=== PATIENT | female | born 1980 | race Caucasian/White ===

== ENCOUNTER 2017-07-09 17:19 | Emergency (ER) | payer SELFPAY ==
[~2017-07-09] VITALS: Ht 160 cm; Wt 50.0 kg
[~2017-07-09 17:19] MED LIST: BACT800T5 PO; CLEO300C2 PO; METH5SOL3 PO
[2017-07-09 17:26] VITALS: BP 149/92; PULSE 92; RESP 25; TEMP 99.2
== END 2017-07-09 17:50 | disposition left against medical advice (07) ==
LOC: NEPC 17:19
DX: Z76.89 Persons encountering health services in other specified circumstances (principal)
CPT/HCPCS: 99281

== ENCOUNTER 2017-07-12 22:49 | Inpatient (IN) | payer MEDICAID ==
[~2017-07-12] VITALS: Ht 160 cm; Wt 56.8 kg
[2017-07-12 23:00] VITALS: BP 119/59; PULSE 141; RESP 20; TEMP 102.8; O2SAT 98
[2017-07-12] MEDS ORDERED: PIPERACIL-TAZO 4.5 GM PREMIX 100 ML IV STA (23:14)
[2017-07-12] MEDS ORDERED: VANCOMYCIN INJ 1,250 MG in SODIUM CHLOR 0.9% 250 ML INJ 250 ML IV STA (23:14)
[2017-07-12] MEDS ORDERED: SODIUM CHLOR 0.9% 1000 ML INJ 1,000 ML IV ONE ×2 (23:15)
[2017-07-12 23:16] VITALS: BP 125/57; PULSE 130; RESP 14; TEMP 102; O2SAT 98
[2017-07-12 23:33] LABS: AUTOMATED NEUTROPHIL # 9.1 TH/MM3 (1.8-7.7); BASOPHIL % 0.3 % (0.0-2.0); EOSINOPHIL % 0.1 % (0.0-4.0); HEMATOCRIT 28.6 % (35.0-46.0); HEMOGLOBIN 9.9 GM/DL (11.6-15.3); LYMPH % 4.6 % (9.0-44.0); LYMPHOCYTE # 0.5 TH/MM3 (1.0-4.8); MEAN CELL VOLUME 83.8 FL (80.0-100.0); MEAN CORPUSCULAR HEMOGLOBIN 29.1 PG (27.0-34.0); MEAN CORPUSCULAR HGB CONC 34.8 % (32.0-36.0); MEAN PLATELET VOLUME 8.4 FL (7.0-11.0); MONO % 3.6 % (0.0-8.0); MONOCYTE # 0.4 TH/MM3 (0-0.9); NEUT % 91.4 % (16.0-70.0); PLATELET COUNT 321 TH/MM3 (150-450); RED BLOOD COUNT 3.41 MIL/MM3 (4.00-5.30)
--- NOTE | 2017-07-12 23:48 | RADRPT ---
EXAM DATE/TIME: 07/12/2017 23:26 [place] COMPARISON: CHEST SINGLE AP, June 28, 2016, 2:23. INDICATIONS : High fever, sepsis. MEDICAL HISTORY : Endocarditis SURGICAL HISTORY : None. ENCOUNTER: Initial ACUITY: 4 - 6 days PAIN SCORE: 0/10 LOCATION: Bilateral chest FINDINGS: A single view of the chest demonstrates the lungs to be symmetrically aerated without evidence of mas s, infiltrate or effusion. The cardiomediastinal contours are unremarkable. Osseous structures are intact. CONCLUSION: No acute cardiopulmonary process to explain current clinical symptoms. Sascha Saunders MD on July 12, 2017 at 23:41 Board Certified Radiologist. This report was verified electronically.
[2017-07-12 23:51] LABS: LACTIC ACID SEPSIS PROTOCOL 2.8 mmol/L (0.4-2.0)
[2017-07-13] VITALS (12 sets, daily range): BP systolic 101–114; BP diastolic 55–73; PULSE 68–127; RESP 16–20; TEMP 98.8–100.4; O2SAT 93–99
[2017-07-13 00:01] LABS: ALBUMIN 2.7 GM/DL (3.4-5.0); ALKALINE PHOSPHATASE 105 U/L (45-117); ALT (GPT) 19 U/L (10-53); AST (GOT) 44 U/L (15-37); BICARBONATE 27.1 MEQ/L (21.0-32.0); BLOOD UREA NITROGEN 10 MG/DL (7-18); CALCIUM 8.5 MG/DL (8.5-10.1); CHLORIDE 97 MEQ/L (98-107); CREATININE 1.07 MG/DL (0.50-1.00); GLOMERULAR FILTRATION RATE 58 ML/MIN (>89); GLUCOSE,RANDOM 124 MG/DL (74-106); SODIUM (NA) 134 MEQ/L (136-145); TOTAL BILIRUBIN ADULT 0.8 MG/DL (0.2-1.0); TOTAL PROTEIN 8.4 GM/DL (6.4-8.2); TROPONIN I LESS THAN 0.02 NG/ML (0.02-0.05)
--- NOTE | 2017-07-13 00:53 | PD ---
HPI Chief Complaint: Chest Pain Time Seen by Provider: 23:14 Travel History International Travel<30 days: No Contact w/Intl Traveler<30days: No Traveled to known affect area: No History of Present Illness HPI 37-year-old female arrives to the ER with mother due to chest pain palpitations subjective fever. The patient has a history of IV drug abuse. She was recently diagnosed with endocarditis at a hospital in [place]. She signed out AMA 3 days prior. She reported to her mother, who is the main historian for today's visit, that she felt as if she were dying. She therefore agreed to come to the ER. Evidently imaging at [place] revealed septic pulmonary emboli. Location cardio pulmonary. Timing constant. PFSH Past Medical History Hx Anticoagulant Therapy: No Cardiovascular Problems: Yes (endocarditis) Chemotherapy: No Cerebrovascular Accident: No Diabetes: No Hepatitis: Yes (hep c+) Psychiatric: Yes (IVDA) Respiratory: No Immunizations Current: Yes Seizures: Yes Tetanus Vaccination: < 5 Years Influenza Vaccination: No ?: Not LMP: 7 YEARS AGO Past Surgical History Surgical History: No Previous Surgery Hysterectomy: No Social History Alcohol Use: Yes Tobacco Use: Yes Substance Use: Yes (heroine cocaine) Allergies-Medications (Allergen,Severity, Reaction): Coded Allergies: No Known Allergies (Unverified Allergy, Unknown, 07/12/17) Reported Meds & Prescriptions Reported Meds & Active Scripts Active No Active Prescriptions or Reported Medications Review of Systems Except as stated in HPI: all other systems reviewed are Neg Physical Exam Narrative GENERAL: 37-year-old female mild to moderate distress Vital Signs Date Time Temp Pulse Resp B/P (MAP) Pulse Ox O2 Delivery O2 Flow Rate FiO2 07/12/17 23:16 102.0 130 14 125/57 (79) 98 Room Air 07/12/17 23:00 102.8 141 20 119/59 (79) 98 SKIN: Warm and dry. Multiple areas of scarring consistent with IV drug abuse about the upper extremities. HEAD: Atraumatic. Normocephalic. EYES: Pupils equal and round. No scleral icterus. No injection or drainage. ENT: No nasal bleeding or discharge. Mucous membranes pink and moist. NECK: Trachea midline. No JVD. CARDIOVASCULAR: Tachycardia. Regular rhythm. RESPIRATORY: No accessory muscle use. Clear to auscultation. Breath sounds equal bilaterally. GASTROINTESTINAL: Abdomen soft, non-tender, nondistended. Hepatic and splenic margins not palpable. MUSCULOSKELETAL: Extremities without clubbing, cyanosis, or edema. No obvious deformities. NEUROLOGICAL: Awake and alert. No obvious cranial nerve deficits. Motor grossly within normal limits. Five out of 5 muscle strength in the arms and legs. Normal speech. PSYCHIATRIC: Appropriate mood and affect; insight and judgment normal. Data Data Last Documented VS Vital Signs Date Time Temp Pulse Resp B/P (MAP) Pulse Ox O2 Delivery O2 Flow Rate FiO2 07/12/17 23:16 102.0 130 14 125/57 (79) 98 Room Air Orders Orders Sepsis Workup Initiated (07/12/17 ) Complete Blood Count With Diff (07/12/17 23:14) Comprehensive Metabolic Panel (07/12/17 23:14) Lactic Acid Sepsis Protocol (07/12/17 23:14) Ckmb (Isoenzyme) Profile (07/12/17 23:14) Troponin I (07/12/17 23:14) Urinalysis - C+S If Indicated (07/12/17 23:14) Blood Culture (07/12/17 23:14) Chest, Single Ap (07/12/17 23:14) Ecg Monitoring (07/12/17 23:14) Iv Access Insert/Monitor (07/12/17 23:14) Oximetry (07/12/17 23:14) Oxygen Administration (07/12/17 23:14) Vancomycin Inj (Vancomycin Inj) (07/12/17 23:14) Piperacil-Tazo 4.5 Gm Premix (Zosyn 4.5 (07/12/17 23:14) Sodium Chlor 0.9% 1000 Ml Inj (Ns 1000 M (07/12/17 23:15) Sodium Chlor 0.9% 1000 Ml Inj (Ns 1000 M (07/12/17 23:15) Sodium Chlor 0.9% 1000 Ml Inj (Ns 1000 M (07/13/17 01:00) Acetaminophen (Tylenol) (07/13/17 01:00) Admit Order (Ed Use Only) (07/13/17 ) Pre Press Manager / Telemetry ADRIEN.Q8H (07/13/17 01:05) Vital Signs (Adult) Q4H (07/13/17 01:05) Diet Npo (07/13/17 Breakfast) Activity Bed Rest (07/13/17 01:05) Notify Dr: Other (07/13/17 01:05) Labs Laboratory Tests Test 07/12/17 23:21 White Blood Count 10.0 TH/MM3 Red Blood Count 3.41 MIL/MM3 Hemoglobin 9.9 GM/DL Hematocrit 28.6 % Mean Corpuscular Volume 83.8 FL Mean Corpuscular Hemoglobin 29.1 PG Mean Corpuscular Hemoglobin Concent 34.8 % Red Cell Distribution Width 16.0 % Platelet Count 321 TH/MM3 Mean Platelet Volume 8.4 FL Neutrophils (%) (Auto) 91.4 % Lymphocytes (%) (Auto) 4.6 % Monocytes (%) (Auto) 3.6 % Eosinophils (%) (Auto) 0.1 % Basophils (%) (Auto) 0.3 % Neutrophils # (Auto) 9.1 TH/MM3 Lymphocytes # (Auto) 0.5 TH/MM3 Monocytes # (Auto) 0.4 TH/MM3 Eosinophils # (Auto) 0.0 TH/MM3 Basophils # (Auto) 0.0 TH/MM3 CBC Comment DIFF FINAL Differential Comment Blood Urea Nitrogen 10 MG/DL Creatinine 1.07 MG/DL Random Glucose 124 MG/DL Total Protein 8.4 GM/DL Albumin 2.7 GM/DL Calcium Level 8.5 MG/DL Alkaline Phosphatase 105 U/L Aspartate Amino Transf (AST/SGOT) 44 U/L Alanine Aminotransferase (ALT/SGPT) 19 U/L Total Bilirubin 0.8 MG/DL Sodium Level 134 MEQ/L Potassium Level 4.4 MEQ/L Chloride Level 97 MEQ/L Carbon Dioxide Level 27.1 MEQ/L Anion Gap 10 MEQ/L Estimat Glomerular Filtration Rate 58 ML/MIN Lactic Acid Level 2.8 mmol/L Total Creatine Kinase 85 U/L Troponin I LESS THAN 0.02 NG/ML [facility] Medical Decision Making Medical Screen Exam Complete: Yes Emergency Medical Condition: Yes Medical Record Reviewed: Yes Differential Diagnosis Endocarditis, septic shock, septic pulmonary emboli, multiorgan dysfunction syndrome Narrative Course CBC & BMP Diagram 07/12/17 23:21 Total Protein 8.4 H, Albumin 2.7 L, Calcium Level 8.5, Alkaline Phosphatase 105 , Aspartate Amino Transf (AST/SGOT) 44 H, Alanine Aminotransferase (ALT/SGPT) 19 , Total Bilirubin 0.8 Lactic acid 2.8 Troponin is less than 0.02 EKG shows a sinus tachycardia at a rate of 129 Blood cultures 3 obtained. His presentation is consistent with endocarditis. Request for records from the [facility] has been submitted. Patient will be admitted for IV antibiotics for treatment of endocarditis. Critical Care Narrative Aggregate critical care time was 40 minutes. Time to perform other separately billable procedures was not included in the critical care time. My time did not include minutes spent treating any other patients simultaneously or on activities that did not directly contribute to the patient's treatment. The services I provided to this patient were to treat and/or prevent clinically significant deterioration that could result in: Septic shock, aneurysm, stroke, cardio pulmonary arrest I provided critical care services requiring my management, as noted below: Chart data review, documentation time, medication orders and management, vital sign assessments/reviewing monitor data, ordering and reviewing lab tests, ordering and interpreting/reviewing x-rays and diagnostic studies, care of the patient and discussion of the patient with the admitting physicians. Diagnosis Primary Impression: Endocarditis Qualified Codes: I38 - Endocarditis, valve unspecified Additional Impressions: IVDU (intravenous drug user) Anemia Qualified Codes: D64.9 - Anemia, unspecified Admitting Information Admitting Physician Requests: Admit Scripts No Active Prescriptions or Reported Meds Tung Hastings MD Jul 13, 2017 00:53
[2017-07-13] MEDS ORDERED: ACETAMINOPHEN 325 MG TAB PO ONE (01:00)
[2017-07-13] MEDS ORDERED: SODIUM CHLOR 0.9% 1000 ML INJ 1,000 ML IV ONE (01:00)
[2017-07-13] MEDS: SODIUM CHLOR 0.9% 1000 ML INJ 1,000 ML IV SCH ×3 (02:14→22:14)
[2017-07-13] MEDS ORDERED: ONDANSETRON HCL 4 MG/2 ML VIAL IVP PRN (02:15)
[2017-07-13] MEDS ORDERED: Vancomycin Consult Pharmacy 1 EA OTHER SCH (02:15)
[2017-07-13] MEDS ORDERED: SODIUM CHLORIDE 0.9% FLUSH 10 ML FLUSH IV FLUSH PRN (02:15)
[2017-07-13] MEDS ORDERED: ACETAMINOPHEN 325 MG TAB PO PRN (02:15)
[2017-07-13] MEDS ORDERED: NALOXONE HCL 0.4 MG/ML AMP IV PUSH PRN (02:15)
[2017-07-13 03:26] LABS: BILIRUBIN, URINE NEG (NEG); BLOOD, URINE NEG (NEG); GLUCOSE,URINE NEG (NEG); KETONE, URINE NEG (NEG); NITRITE,URINE NEG (NEG); SQUAMOUS EPITHELIAL CELL URINE 1 /hpf (0-5); URINE COLOR YELLOW (YELLW/STRAW); URINE LEUKOCYTE ESTERASE NEG (NEG)
--- NOTE | 2017-07-13 04:50 | HHI.HP ---
[facility] Service [facility] Primary Care Physician Unknown Admission Diagnosis Endocarditis; Severe Sepsis Diagnoses: Travel History International Travel<30 Days: No Contact w/Intl Traveler <30 Da: No Traveled to Known Affected Are: No History of Present Illness 37-year-old female with a past medical history significant for IV drug abuse presents to the emergency department for evaluation of chest pain, palpitations and fever. The patient will open her eyes to voice at the time of our interview however does not answer questions and quickly falls back asleep. Per ED documentation, the patient was recently diagnosed with endocarditis at a hospital in [place]. She signed out AMA 3 days ago and came to live with her mother. Per the patient's mother, the patient stated she felt as if she was dying. She was then agreeable to come to the emergency department for further evaluation. Per the mother's report, imaging at [place] revealed septic pulmonary emboli. Unable to obtain further review of systems as patient does not answer questions and her mother is not at bedside during our interview. Review of Systems ROS Limitations: Clinical Condition Unable to obtain secondary to clinical condition Past Family Social History Past Medical History IV drug abuse Past Surgical History Unable to obtain Reported Medications Unknown Allergies: Coded Allergies: No Known Allergies (Unverified Allergy, Unknown, 07/12/17) Family History Unknown Social History Unable to obtain Physical Exam Vital Signs Vital Signs Date Time Temp Pulse Resp B/P (MAP) Pulse Ox O2 Delivery O2 Flow Rate FiO2 07/13/17 03:00 100.0 112 16 102/55 (71) 94 Room Air 07/13/17 02:00 127 16 105/57 (73) 93 Room Air 07/13/17 01:00 124 16 102/57 (72) 94 Room Air 07/13/17 00:00 112 16 110/62 (78) 95 Room Air 07/12/17 23:16 102.0 130 14 125/57 (79) 98 Room Air 07/12/17 23:00 102.8 141 20 119/59 (79) 98 Physical Exam GENERAL: female lying in bed, drowsy, arouses to voice SKIN: No rashes, ecchymoses or lesions. Cool and dry. HEAD: Atraumatic. Normocephalic. No temporal or scalp tenderness. EYES: Pupils equal round and reactive. Extraocular motions intact. No scleral icterus. No injection or drainage. ENT: Nose without bleeding, purulent drainage or septal hematoma. Airway patent. NECK: Trachea midline. No JVD or lymphadenopathy. CARDIOVASCULAR: Regular rate and rhythm without murmurs, gallops, or rubs. RESPIRATORY: Clear to auscultation in the anterior giron. Breath sounds equal bilaterally. No wheezes, rales, or rhonchi. GASTROINTESTINAL: Abdomen soft, nondistended. No hepato-splenomegaly, or palpable masses. No guarding. MUSCULOSKELETAL: Extremities without clubbing, cyanosis, or edema. No joint tenderness, effusion, or edema noted. No calf tenderness. NEUROLOGICAL: Drowsy. Does not follow commands. Laboratory Laboratory Tests Test 07/12/17 23:21 07/13/17 02:10 07/13/17 03:10 White Blood Count 10.0 Red Blood Count 3.41 Hemoglobin 9.9 Hematocrit 28.6 Mean Corpuscular Volume 83.8 Mean Corpuscular Hemoglobin 29.1 Mean Corpuscular Hemoglobin Concent 34.8 Red Cell Distribution Width 16.0 Platelet Count 321 Mean Platelet Volume 8.4 Neutrophils (%) (Auto) 91.4 Lymphocytes (%) (Auto) 4.6 Monocytes (%) (Auto) 3.6 Eosinophils (%) (Auto) 0.1 Basophils (%) (Auto) 0.3 Neutrophils # (Auto) 9.1 Lymphocytes # (Auto) 0.5 Monocytes # (Auto) 0.4 Eosinophils # (Auto) 0.0 Basophils # (Auto) 0.0 CBC Comment DIFF FINAL Differential Comment Blood Urea Nitrogen 10 Creatinine 1.07 Random Glucose 124 Total Protein 8.4 Albumin 2.7 Calcium Level 8.5 Alkaline Phosphatase 105 Aspartate Amino Transf (AST/SGOT) 44 Alanine Aminotransferase (ALT/SGPT) 19 Total Bilirubin 0.8 Sodium Level 134 Potassium Level 4.4 Chloride Level 97 Carbon Dioxide Level 27.1 Anion Gap 10 Estimat Glomerular Filtration Rate 58 Lactic Acid Level 2.8 0.8 Total Creatine Kinase 85 Troponin I LESS THAN 0.02 Urine Color YELLOW Urine Turbidity CLEAR Urine pH 7.0 Urine Specific [facility] 1.017 Urine Protein NEG Urine Glucose (UA) NEG Urine Ketones NEG Urine Occult Blood NEG Urine Nitrite NEG Urine Bilirubin NEG Urine Urobilinogen LESS THAN 2.0 Urine Leukocyte Esterase NEG Urine RBC 1 Urine WBC 1 Urine Squamous Epithelial Cells 1 Microscopic Urinalysis Comment CATH-CULT NOT IND Date/Time Source Procedure Growth Status 07/12/17 23:50 Blood Peripheral Aerobic Blood Culture Pending Received 07/12/17 23:50 Blood Peripheral Anaerobic Blood Culture Pending Received Result Diagram: 07/12/17 2321 07/12/17 2321 Caprini VTE Risk Assessment Caprini VTE Risk Assessment: No/Low Risk (score <= 1) Caprini Risk Assessment Model Point Value = 1 Point Value = 2 Point Value = 3 Point Value = 5 Age 41-60 Minor surgery BMI > 25 kg/m2 Swollen legs Varicose veins or History of unexplained or recurrent spontaneous Oral contraceptives or hormone replacement Sepsis (< 1 month) Serious lung disease, including pneumonia (< 1 month) Abnormal pulmonary function Acute myocardial infarction Congestive heart failure (< 1 month) History of inflammatory bowel disease Medical patient at bed rest Age 61-74 Arthroscopic surgery Major open surgery (> 45 min) Laparoscopic surgery (> 45 min) Malignancy Confined to bed (> 72 hours) Immobilizing plaster cast Central venous access Age >= 75 History of VTE Family history of VTE Factor V Leiden Prothrombin [id number] Lupus anticoagulant Anticardiolipin antibodies Elevated serum homocysteine Heparin-induced thrombocytopenia Other congenital or acquired thrombophilia Stroke (< 1 month) Elective arthroplasty Hip, pelvis, or leg fracture Acute spinal cord injury (< 1 month) Prophylaxis Regimen Total Risk Factor Score Risk Level Prophylaxis Regimen 0-1 Low Early ambulation 2 Moderate Order ONE of the following: *Sequential Compression Device (SCD) *Heparin 5000 units SQ BID 3-4 Higher Order ONE of the following medications: *Heparin 5000 units SQ TID *Enoxaparin/Lovenox 40 mg SQ daily (WT < 150 kg, CrCl > 30 mL/min) *Enoxaparin/Lovenox 30 mg SQ daily (WT < 150 kg, CrCl > 10-29 mL/min) *Enoxaparin/Lovenox 30 mg SQ BID (WT < 150 kg, CrCl > 30 mL/min) AND/OR *Sequential Compression Device (SCD) 5 or more Highest Order ONE of the following medications: *Heparin 5000 units SQ TID (Preferred with Epidurals) *Enoxaparin/Lovenox 40 mg SQ daily (WT < 150 kg, CrCl > 30 mL/min) *Enoxaparin/Lovenox 30 mg SQ daily (WT < 150 kg, CrCl > 10-29 mL/min) *Enoxaparin/Lovenox 30 mg SQ BID (WT < 150 kg, CrCl > 30 mL/min) AND *Sequential Compression Device (SCD) Assessment and Plan Assessment and Plan Assessment/plan: 1. Endocarditis/sepsis Per report, patient recently treated for endocarditis and left AMA 3 days ago. She reportedly had septic pulmonary emboli. Records requested from [facility]. Patient tachycardic, febrile, elevated lactic acid Vancomycin/Zosyn Blood cultures pending Infectious disease consulted, appreciate recommendations Monitor for signs of shock 2. ESTEFANIA Creatinine 1.07 IV fluid hydration Monitor renal function 3. History of IV drug abuse Unable to obtain further information given patient's clinical condition FEN Heart healthy diet Electrolytes: Monitor and replete when necessary Physician Certification 2 Midnight Certification Type: Admission for Inpatient Services Order for Inpatient Services The services are ordered in accordance with Medicare regulations or non- Medicare payer requirements, as applicable. In the case of services not specified as inpatient-only, they are appropriately provided as inpatient services in accordance with the 2-midnight benchmark. Estimated LOS (days): 2 2 days is the estimated time the patient will need to remain in the hospital, assuming treatment plan goals are met and no additional complications. Post-Hospital Plan: Not yet determined Kaila Rabago MD Jul 13, 2017 04:50
[2017-07-13] MEDS ORDERED: PIPERACIL-TAZO 3.375 GM PREMIX 50 ML IV SCH ×2 (06:00→13:00)
[2017-07-13] MEDS: SODIUM CHLORIDE 0.9% FLUSH 10 ML FLUSH IV FLUSH SCH ×2 (09:00→21:00)
[2017-07-13] MEDS: VANCOMYCIN INJ 1,250 MG in SODIUM CHLOR 0.9% 250 ML INJ 250 ML IV SCH (11:32)
[2017-07-13] MEDS ORDERED: MORPHINE SULFATE 2 MG/ML INJ IV PUSH PRN (14:30)
--- NOTE | 2017-07-13 16:18 | HHI.PR ---
Subjective Remarks Follow-up for endocarditis and bacteremia On prior admission patient left AMA at hospital in [place]. Her mother is at the bedside during interview. Patient stated that she is willing to stay if we are willing to detox her. She has no complaints. At the moment her mother feels like patient needs to stay in the hospital for full treatment for endocarditis and stated that she has a high risk of relapsing. Patient stated that she would inject heroin all day and that prior when she try to get off of heroin she was on methadone 150 mg a day. Otherwise she has no other complaints. Objective Vitals Vital Signs Date Time Temp Pulse Resp B/P (MAP) Pulse Ox O2 Delivery O2 Flow Rate FiO2 07/13/17 12:35 07/13/17 12:20 99.3 100 20 113/60 (77) 97 07/13/17 08:00 102 16 114/73 (87) 95 Room Air 07/13/17 06:30 86 16 101/68 (79) 99 Room Air 07/13/17 04:30 99 16 103/65 (78) 93 Room Air 07/13/17 03:00 100.0 112 16 102/55 (71) 94 Room Air 07/13/17 02:00 127 16 105/57 (73) 93 Room Air 07/13/17 01:00 124 16 102/57 (72) 94 Room Air 07/13/17 00:00 112 16 110/62 (78) 95 Room Air 07/12/17 23:16 102.0 130 14 125/57 (79) 98 Room Air 07/12/17 23:00 102.8 141 20 119/59 (79) 98 I/O 07/12/17 07/12/17 07/12/17 07/13/17 07/13/17 07/13/17 07:00 15:00 23:00 07:00 15:00 23:00 Intake Total 3362.5 ml Balance 3362.5 ml Intake IV Total 3362.5 ml Result Diagram: 07/12/17232007/12/172320 Objective Remarks GENERAL: very thin female in NAD SKIN: Warm and dry. HEAD: Normocephalic. EYES: No scleral icterus. No injection or drainage. NECK: Supple, trachea midline. No JVD or lymphadenopathy. CARDIOVASCULAR: Regular rate and rhythm without murmurs, gallops, or rubs. RESPIRATORY: Breath sounds equal bilaterally. No accessory muscle use. GASTROINTESTINAL: Abdomen soft, non-tender, nondistended. MUSCULOSKELETAL: No cyanosis, or edema. BACK: Nontender without obvious deformity. No CVA tenderness. Medications and IVs Current Medications Vancomycin HCl 1250 mg/Sodium Chloride 262.5 ml @ 262.5 mls/ hr ONCE STAT IV Last administered on 07/13/17at 00:44; Start 07/12/17 at 23:14; Stop 07/13/17 at 00:13; Status DC Piperacillin Sod/ Tazobactam Sod 100 ml @ 200 mls/hr ONCE STAT IV Last administered on 07/12/17at 23:52; Start 07/12/17 at 23:14; Stop 07/12/17 at 23:43 ; Status DC Sodium Chloride 1,000 ml @ 999 mls/hr BOLUS ONCE IV Last administered on 07/12at 23:52; Start 07/12/17 at 23:15; Stop 07/13/17 at 00:15; Status DC Sodium Chloride 1,000 ml @ 999 mls/hr BOLUS ONCE IV Last administered on 07/12at 23:52; Start 07/12/17 at 23:15; Stop 07/13/17 at 00:15; Status DC Sodium Chloride 1,000 ml @ 999 mls/hr BOLUS ONCE IV Last administered on 07/13at 01:07; Start 07/13/17 at 01:00; Stop 07/13/17 at 02:00; Status DC Acetaminophen (Tylenol) 650 mg ONCE ONCE PO Last administered on 07/13/17at 01: 07; Start 07/13/17 at 01:00; Stop 07/13/17 at 01:01; Status DC Sodium Chloride 1,000 ml @ 100 mls/hr Q10H IV Last administered on 07/13/17at 13:49; Start 07/13/17 at 02:14 Sodium Chloride (NS Flush) 2 ml UNSCH PRN IV FLUSH FLUSH AFTER USING IV ACCESS ; Start 07/13/17 at 02:15 Sodium Chloride (NS Flush) 2 ml BID IV FLUSH ; Start 07/13/17 at 09:00 Acetaminophen (Tylenol) 650 mg Q4H PRN PO TEMP > 100.4; Start 07/13/17 at 02:15 Ondansetron HCl (Zofran Inj) 4 mg Q6H PRN IVP NAUSEA OR VOMITING; Start at 02:15 Naloxone HCl (Narcan Inj) 0.4 mg UNSCH PRN IV PUSH SEE LABEL COMMENTS; Start at 02:15 Pharmacy Profile Note 0 ml @ 0 mls/hr UNSCH OTHER ; Start 07/13/17 at 02:15 Piperacillin Sod/ Tazobactam Sod 50 ml @ 100 mls/hr Q6H IV ; Start 07/13/17 at 06:00; Stop 07/13/17 at 08:53; Status DC Vancomycin HCl 1250 mg/Sodium Chloride 262.5 ml @ 250 mls/hr Q12H IV Last administered on 07/13/17at 11:32; Start 07/13/17 at 12:00 Miscellaneous Information SPECIFIC LAB TO BE DRAWN:VANCOMYCIN TROUGH DATE TO... ONCE ONCE .XX ; Start 07/14/17 at 11:45; Stop 07/14/17 at 11:46 Piperacillin Sod/ Tazobactam Sod 50 ml @ 100 mls/hr Q6H IV Last administered on 07/13/17at 13:00; Start 07/13/17 at 13:00 Methadone HCl (Dolophine) 10 mg Q8H PO ; Start 07/13/17 at 16:00 Morphine Sulfate (Morphine Inj) 2 mg Q4H PRN IV PUSH breakthrough pain; Start 07/13/17 at 14:30 A/P Assessment and Plan Assessment/plan: 1. Endocarditis/sepsis Per report, patient recently treated for endocarditis and left AMA 4 days ago. She reportedly had septic pulmonary emboli. Place another order for nurse requests medical records from [facility]. Blood cultures positive for gram-positive cocci. Continue with vancomycin/Zosyn Infectious disease consulted, appreciate recommendations Continue supportive care with IV fluids. 2. ESTEFANIA Creatinine 1.07 IV fluid hydration Monitor renal function 3. History of IV drug abuse Patient was using a lot of heroin. Most likely she will withdrawal. We will start her on methadone and give as needed morphine. Detox patient while she is hospitalized. Education given to patient and her mother. Patient in agreement with treatment. FEN Heart healthy diet Electrolytes: Monitor and replete when necessary Marguerite Barbosa MD Jul 13, 2017 16:18
[2017-07-13] MEDS: METHADONE HCL 10 MG TAB PO SCH (17:32)
--- NOTE | 2017-07-13 20:19 | PD.ID.CON ---
History of Present Illness Service ID Consult Requested By Dr Barbosa Reason for Consult endocarditis Primary Care Physician Unknown Diagnoses: History of Present Illness 37 yo F with IVDU presented with 5 days of high spiking fever, chest pain and palpitation Fever 102.8, lactic acid of 2.7 Blood cultures with GPC in chains - both sets Endorses h/o endocarditisin the past Uses IV heroine also c/o R foot pain Review of Systems Constitutional: COMPLAINS OF: Fever Cardiovascular: COMPLAINS OF: Chest pain, Palpitations, Lower Extremity Edema Musculoskeletal: COMPLAINS OF: Muscle aches Except as stated in HPI: all other systems reviewed are Neg Past Family Social History Allergies: Coded Allergies: No Known Allergies (Unverified Allergy, Unknown, 07/12/17) Past Medical History IVDU Hep C endocarditis Past Surgical History non reported Active Ordered Medications Medications where reviewed in EMR Antibiotics Include: zosyn vancomycin Family History reviewed non contributory to current iD issue Social History + tobacco 1 PPD + IVDU, heroine no ETOH Physical Exam Vital Signs Vital Signs Date Time Temp Pulse Resp B/P (MAP) Pulse Ox O2 Delivery O2 Flow Rate FiO2 07/13/17 16:00 100.4 102 20 102/59 (73) 97 07/13/17 15:44 109 07/13/17 12:35 07/13/17 12:20 99.3 100 20 113/60 (77) 97 07/13/17 08:00 102 16 114/73 (87) 95 Room Air 07/13/17 06:30 86 16 101/68 (79) 99 Room Air 07/13/17 04:30 99 16 103/65 (78) 93 Room Air 07/13/17 03:00 100.0 112 16 102/55 (71) 94 Room Air 07/13/17 02:00 127 16 105/57 (73) 93 Room Air 07/13/17 01:00 124 16 102/57 (72) 94 Room Air 07/13/17 00:00 112 16 110/62 (78) 95 Room Air 07/12/17 23:16 102.0 130 14 125/57 (79) 98 Room Air 07/12/17 23:00 102.8 141 20 119/59 (79) 98 Physical Exam CONSTITUTIONAL/GENERAL: This is an adequately nourished patient, in mild distress. TUBES/LINES/DRAINS: SKIN: No jaundice, rashes, or Janeway lesions.+ Needle tracks Skin temperature appropriate. Not diaphoretic. HEAD: Atraumatic. Normocephalic. EYES: Pupils equal and round and reactive. Extraocular motions intact. No scleral icterus. No injection or drainage. Fundi not examined. ENT: Hearing grossly normal. Nose without bleeding or purulent drainage. Throat without visible erythema, exudates, masses, or lesions. Very poor dentition NECK: Trachea midline. Supple, nontender. No palpable thyroid enlargement or nodularity. CARDIOVASCULAR: Regular rate and rhythm without murmurs, gallops, or rubs. No JVD. Peripheral pulses symmetric. RESPIRATORY/CHEST: Symmetric, unlabored respirations. Clear to auscultation. Breath sounds equal bilaterally. No wheezes, rales, or rhonchi. GASTROINTESTINAL: Abdomen soft, non-tender, nondistended. No hepato-splenomegaly , or palpable masses. No guarding. Bowel sounds present. GENITOURINARY: Without palpable bladder distension. MUSCULOSKELETAL: Extremities without clubbing, cyanosis, + BL pedal edema. R foot is tender on palpation No joint tenderness or effusion noted. No calf tenderness. No mottling or clubbing. LYMPHATICS: No palpable cervical or supraclavicular adenopathy. NEUROLOGICAL: Awake and alert. Motor and sensory grossly within normal limits. Follows commands. Clear speech. Moves all extremities. PSYCHIATRIC: No obvious anxiety/depression. no apparent hallucinations or other psychotic thought process. Tearful, labile Laboratory Laboratory Tests Test 07/12/17 23:21 07/13/17 02:10 07/13/17 03:10 07/13/17 07:10 White Blood Count 10.0 Red Blood Count 3.41 Hemoglobin 9.9 Hematocrit 28.6 Mean Corpuscular Volume 83.8 Mean Corpuscular Hemoglobin 29.1 Mean Corpuscular Hemoglobin Concent 34.8 Red Cell Distribution Width 16.0 Platelet Count 321 Mean Platelet Volume 8.4 Neutrophils (%) (Auto) 91.4 Lymphocytes (%) (Auto) 4.6 Monocytes (%) (Auto) 3.6 Eosinophils (%) (Auto) 0.1 Basophils (%) (Auto) 0.3 Neutrophils # (Auto) 9.1 Lymphocytes # (Auto) 0.5 Monocytes # (Auto) 0.4 Eosinophils # (Auto) 0.0 Basophils # (Auto) 0.0 CBC Comment DIFF FINAL Differential Comment Blood Urea Nitrogen 10 Creatinine 1.07 Random Glucose 124 Total Protein 8.4 Albumin 2.7 Calcium Level 8.5 Alkaline Phosphatase 105 Aspartate Amino Transf (AST/SGOT) 44 Alanine Aminotransferase (ALT/SGPT) 19 Total Bilirubin 0.8 Sodium Level 134 Potassium Level 4.4 Chloride Level 97 Carbon Dioxide Level 27.1 Anion Gap 10 Estimat Glomerular Filtration Rate 58 Lactic Acid Level 2.8 0.8 1.0 Total Creatine Kinase 85 Troponin I LESS THAN 0.02 Urine Color YELLOW Urine Turbidity CLEAR Urine pH 7.0 Urine Specific [place] 1.017 Urine Protein NEG Urine Glucose (UA) NEG Urine Ketones NEG Urine Occult Blood NEG Urine Nitrite NEG Urine Bilirubin NEG Urine Urobilinogen LESS THAN 2.0 Urine Leukocyte Esterase NEG Urine RBC 1 Urine WBC 1 Urine Squamous Epithelial Cells 1 Microscopic Urinalysis Comment CATH-CULT NOT IND Date/Time Source Procedure Growth Status 07/12/17 23:50 Blood Peripheral Aerobic Blood Culture Pending Received 07/12/17 23:50 Blood Peripheral Anaerobic Blood Culture Pending Received Result Diagram: 07/12/17 2321 07/12/17 2321 Imaging Last Impressions Chest X-Ray 07/12/17 2314 Signed Impressions: Service Date/Time: June 23:26 - CONCLUSION: No acute cardiopulmonary process to explain current clinical symptoms. Sascha Saunders MD Assessment and Plan Assessment and Plan HIghly suspected endocarditis sugg of streptococcus IVDU R foot pain, swelling ? abscess cont vancomycin for now follow clx untill final gent will be added based on ID/S of the blood clx isolate consider MRI R foot unless pain resolves quickly 2 D echo Sol Nicole MD Jul 13, 2017 20:19
[2017-07-14] VITALS (8 sets, daily range): BP systolic 104–143; BP diastolic 57–83; PULSE 57–94; RESP 16–19; TEMP 97.5–98.8; O2SAT 97–100
[2017-07-14] MEDS: METHADONE HCL 10 MG TAB PO SCH ×4 (01:43→23:18)
[2017-07-14] MEDS: SODIUM CHLORIDE 0.9% FLUSH 10 ML FLUSH IV FLUSH SCH ×2 (09:00→20:30)
[2017-07-14] MEDS: VANCOMYCIN INJ 1,250 MG in SODIUM CHLOR 0.9% 250 ML INJ 250 ML IV SCH ×4 (09:39→09:41)
[2017-07-14] MEDS: SODIUM CHLOR 0.9% 1000 ML INJ 1,000 ML IV SCH ×3 (09:40→23:19)
[2017-07-14] MEDS ORDERED: PHARMACY ORDERED LAB ONE (11:45)
--- NOTE | 2017-07-14 12:12 | HHI.PR ---
Subjective Remarks Follow-up for endocarditis and bacteremia Patient states she feels a lot better. She has no complaints. Patient stated that whatever I am giving to her it is helping. Last fever was a low-grade fever yesterday afternoon 100.4 Objective Vitals Vital Signs Date Time Temp Pulse Resp B/P (MAP) Pulse Ox O2 Delivery O2 Flow Rate FiO2 07/14/17 10:00 Room Air 07/14/17 08:00 97.8 68 18 121/79 (93) 98 07/14/17 08:00 73 07/14/17 04:00 97.9 57 16 121/57 (78) 99 07/14/17 03:47 72 07/14/17 00:00 97.5 73 17 104/68 (80) 99 07/13/17 23:46 68 07/13/17 23:00 Room Air 07/13/17 20:00 Room Air 07/13/17 20:00 98.8 88 18 106/60 (75) 97 07/13/17 16:00 100.4 102 20 102/59 (73) 97 07/13/17 15:44 109 07/13/17 12:35 07/13/17 12:20 99.3 100 20 113/60 (77) 97 I/O 07/13/17 07/13/17 07/13/17 07/14/17 07/14/17 07/14/17 06:59 14:59 22:59 06:59 14:59 22:59 Intake Total 3362.5 ml 480 ml 480 ml Balance 3362.5 ml 480 ml 480 ml Intake Oral 480 ml 480 ml IV Total 3362.5 ml # Voids 4 2 # Bowel Movements 1 Result Diagram: 07/12/17 2321 07/12/17 2321 Objective Remarks GENERAL: very thin female in NAD SKIN: Warm and dry. HEAD: Normocephalic. EYES: No scleral icterus. No injection or drainage. NECK: Supple, trachea midline. No JVD or lymphadenopathy. CARDIOVASCULAR: Regular rate and rhythm without murmurs, gallops, or rubs. RESPIRATORY: Breath sounds equal bilaterally. No accessory muscle use. GASTROINTESTINAL: Abdomen soft, non-tender, nondistended. MUSCULOSKELETAL: No cyanosis, or edema. BACK: Nontender without obvious deformity. No CVA tenderness. Medications and IVs Current Medications Vancomycin HCl 1250 mg/Sodium Chloride 262.5 ml @ 262.5 mls/ hr ONCE STAT IV Last administered on 07/13/17at 00:44; Start 07/12/17 at 23:14; Stop 07/13/17 at 00:13; Status DC Piperacillin Sod/ Tazobactam Sod 100 ml @ 200 mls/hr ONCE STAT IV Last administered on 07/12/17at 23:52; Start 07/12/17 at 23:14; Stop 07/12/17 at 23:43 ; Status DC Sodium Chloride 1,000 ml @ 999 mls/hr BOLUS ONCE IV Last administered on 07/12at 23:52; Start 07/12/17 at 23:15; Stop 07/13/17 at 00:15; Status DC Sodium Chloride 1,000 ml @ 999 mls/hr BOLUS ONCE IV Last administered on 07/12at 23:52; Start 07/12/17 at 23:15; Stop 07/13/17 at 00:15; Status DC Sodium Chloride 1,000 ml @ 999 mls/hr BOLUS ONCE IV Last administered on 07/13at 01:07; Start 07/13/17 at 01:00; Stop 07/13/17 at 02:00; Status DC Acetaminophen (Tylenol) 650 mg ONCE ONCE PO Last administered on 07/13/17at 01: 07; Start 07/13/17 at 01:00; Stop 07/13/17 at 01:01; Status DC Sodium Chloride 1,000 ml @ 100 mls/hr Q10H IV Last administered on 07/14/17at 09:40; Start 07/13/17 at 02:14 Sodium Chloride (NS Flush) 2 ml UNSCH PRN IV FLUSH FLUSH AFTER USING IV ACCESS ; Start 07/13/17 at 02:15 Sodium Chloride (NS Flush) 2 ml BID IV FLUSH ; Start 07/13/17 at 09:00 Acetaminophen (Tylenol) 650 mg Q4H PRN PO TEMP > 100.4 Last administered on at 17:30; Start 07/13/17 at 02:15 Ondansetron HCl (Zofran Inj) 4 mg Q6H PRN IVP NAUSEA OR VOMITING; Start at 02:15 Naloxone HCl (Narcan Inj) 0.4 mg UNSCH PRN IV PUSH SEE LABEL COMMENTS; Start at 02:15 Pharmacy Profile Note 0 ml @ 0 mls/hr UNSCH OTHER ; Start 07/13/17 at 02:15; Stop 07/14/17 at 11:10; Status DC Piperacillin Sod/ Tazobactam Sod 50 ml @ 100 mls/hr Q6H IV ; Start 07/13/17 at 06:00; Stop 07/13/17 at 08:53; Status DC Vancomycin HCl 1250 mg/Sodium Chloride 262.5 ml @ 250 mls/hr Q12H IV Last administered on 07/13/17at 11:32; Start 07/13/17 at 12:00; Stop 07/14/17 at 11:10 ; Status DC Miscellaneous Information SPECIFIC LAB TO BE DRAWN:VANCOMYCIN TROUGH DATE TO... ONCE ONCE .XX ; Start 07/14/17 at 11:45; Stop 07/14/17 at 11:46; Status DC Piperacillin Sod/ Tazobactam Sod 50 ml @ 100 mls/hr Q6H IV Last administered on 07/13/17at 13:00; Start 07/13/17 at 13:00; Stop 07/13/17 at 17:17; Status DC Methadone HCl (Dolophine) 10 mg Q8H PO Last administered on 07/14/17at 09:40; Start 07/13/17 at 16:00 Morphine Sulfate (Morphine Inj) 2 mg Q4H PRN IV PUSH breakthrough pain; Start 07/13/17 at 14:30 Penicillin G Potassium [id number] units/Sodium Chloride 100 ml @ 200 mls/hr Q4H IV ; Start 07/14/17 at 12:00 A/P Assessment and Plan This is a 37-year-old female with a recent diagnosis of endocarditis who left AMA around July 09, 2017 from [place] Endocarditis/sepsis -Still pending records from [place]. 5 out of 6 blood cultures positive for group A strep. -Infectious disease consulting and following. Vancomycin and Zosyn discontinued. Patient started on penicillin today. -Pending echo. Continue management per infectious disease. History of IV drug abuse -Patient was using a lot of heroin. Most likely she will withdrawal. . Detox patient while she is hospitalized. Patient in agreement with treatment. Education given to doing well on methadone and as needed morphine. FEN Heart healthy diet Electrolytes: Monitor and replete when necessary Marguerite Barbosa MD Jul 14, 2017 12:12
[2017-07-14] MEDS: PENICILLIN G POTASSIUM INJ 4,000,000 UNITS in SODIUM CHLORIDE 0.9% INJ 100 ML IV SCH ×4 (12:22→23:18)
--- NOTE | 2017-07-14 14:37 | HHI.IDPN ---
Subjective Subjective Remarks no fever feels OK R foot pain is better Antibiotics vancomycin Allergies: Coded Allergies: No Known Allergies (Unverified Allergy, Unknown, 07/12/17) Objective . Vital Signs Date Time Temp Pulse Resp B/P (MAP) Pulse Ox O2 Delivery O2 Flow Rate FiO2 07/14/17 12:00 89 07/14/17 12:00 98.2 86 18 116/83 (94) 98 07/14/17 10:00 Room Air 07/14/17 08:00 97.8 68 18 121/79 (93) 98 07/14/17 08:00 73 07/14/17 04:00 97.9 57 16 121/57 (78) 99 07/14/17 03:47 72 07/14/17 00:00 97.5 73 17 104/68 (80) 99 07/13/17 23:46 68 07/13/17 23:00 Room Air 07/13/17 20:00 Room Air 07/13/17 20:00 98.8 88 18 106/60 (75) 97 07/13/17 16:00 100.4 102 20 102/59 (73) 97 07/13/17 15:44 109 . Laboratory Tests Test 07/12/17 23:21 White Blood Count 10.0 TH/MM3 Red Blood Count 3.41 MIL/MM3 Hemoglobin 9.9 GM/DL Hematocrit 28.6 % Mean Corpuscular Volume 83.8 FL Mean Corpuscular Hemoglobin 29.1 PG Mean Corpuscular Hemoglobin Concent 34.8 % Red Cell Distribution Width 16.0 % Platelet Count 321 TH/MM3 Mean Platelet Volume 8.4 FL Neutrophils (%) (Auto) 91.4 % Lymphocytes (%) (Auto) 4.6 % Monocytes (%) (Auto) 3.6 % Eosinophils (%) (Auto) 0.1 % Basophils (%) (Auto) 0.3 % Neutrophils # (Auto) 9.1 TH/MM3 Lymphocytes # (Auto) 0.5 TH/MM3 Monocytes # (Auto) 0.4 TH/MM3 Eosinophils # (Auto) 0.0 TH/MM3 Basophils # (Auto) 0.0 TH/MM3 CBC Comment DIFF FINAL Differential Comment Laboratory Tests Test 07/12/17 23:21 07/13/17 02:10 07/13/17 07:10 Blood Urea Nitrogen 10 MG/DL Creatinine 1.07 MG/DL Random Glucose 124 MG/DL Total Protein 8.4 GM/DL Albumin 2.7 GM/DL Calcium Level 8.5 MG/DL Alkaline Phosphatase 105 U/L Aspartate Amino Transf (AST/SGOT) 44 U/L Alanine Aminotransferase (ALT/SGPT) 19 U/L Total Bilirubin 0.8 MG/DL Sodium Level 134 MEQ/L Potassium Level 4.4 MEQ/L Chloride Level 97 MEQ/L Carbon Dioxide Level 27.1 MEQ/L Anion Gap 10 MEQ/L Estimat Glomerular Filtration Rate 58 ML/MIN Lactic Acid Level 2.8 mmol/L 0.8 mmol/L 1.0 mmol/L Total Creatine Kinase 85 U/L Troponin I LESS THAN 0.02 NG/ML Microbiology Date/Time Source Procedure Growth Status 07/12/17 23:50 Blood Peripheral Aerobic Blood Culture - Preliminary Group A Beta Strep Resulted 07/12/17 23:50 Anaerobic Blood Culture - Preliminary Group A Beta Strep Resulted 07/12/17 23:20 Blood Peripheral Aerobic Blood Culture - Preliminary NO GROWTH IN 2 DAYS Resulted 07/12/17 23:20 Anaerobic Blood Culture - Preliminary Group A Beta Strep Resulted 07/12/17 23:10 Blood Peripheral Aerobic Blood Culture - Preliminary Group A Beta Strep Resulted 07/12/17 23:10 Anaerobic Blood Culture - Preliminary Group A Beta Strep Resulted Imaging Last Impressions Chest X-Ray 07/12/17 7503 Signed Impressions: Service Date/Time: June 23:26 - CONCLUSION: No acute cardiopulmonary process to explain current clinical symptoms. Sascha Saunders MD Physical Exam CONSTITUTIONAL/GENERAL: This is an adequately nourished patient, in mild distress. TUBES/LINES/DRAINS: SKIN: No jaundice, rashes, or Janeway lesions.+ Needle tracks Skin temperature appropriate. Not diaphoretic. ENT: Hearing grossly normal. Nose without bleeding or purulent drainage. Throat without visible erythema, exudates, masses, or lesions. Very poor dentition CARDIOVASCULAR: Regular rate and rhythm without murmurs, gallops, or rubs. No JVD. Peripheral pulses symmetric. RESPIRATORY/CHEST: Symmetric, unlabored respirations. Clear to auscultation. Breath sounds equal bilaterally. No wheezes, rales, or rhonchi. GASTROINTESTINAL: Abdomen soft, non-tender, nondistended. No hepato-splenomegaly , or palpable masses. No guarding. Bowel sounds present. MUSCULOSKELETAL: Extremities without clubbing, cyanosis, improved BL pedal edema. R foot is much less tender on palpation No joint tenderness or effusion noted. No calf tenderness. No mottling or clubbing. NEUROLOGICAL: Awake and alert. Motor and sensory grossly within normal limits. Follows commands. Clear speech. Moves all extremities. PSYCHIATRIC:calm, cooperative Assessment & Plan Remarks HIghly suspected endocarditis sugg of streptococcus, GAS IVDU R foot pain, swelling - improvedd; abscess is doubtfull chasge vancomycin to PCN G gent will be added based on ID/S of the blood clx isolate consider MRI R foot unless pain resolves quickly awaiting 2 D echo repeat BC dw pt, family @ b/s Sol Nicole MD Jul 14, 2017 14:37
--- NOTE | 2017-07-14 16:31 | EKG ---
Date Performed: 07/12/2017 Time Performed: 23:15:40 PTAGE: 37 years EKG: SINUS TACHYCARDIA Otherwise within normal limits ABNORMAL RHYTHM ECG NO PREVIOUS TRACING DOCTOR: Coleman Pearson Interpretating Date/Time 07/14/2017 16:30:20
[2017-07-14 17:57] LABS: AUTOMATED NEUTROPHIL # 2.5 TH/MM3 (1.8-7.7); BASOPHIL % 0.6 % (0.0-2.0); EOSINOPHIL # 0.2 TH/MM3 (0-0.4); EOSINOPHIL % 3.5 % (0.0-4.0); HEMATOCRIT 23.5 % (35.0-46.0); HEMOGLOBIN 7.9 GM/DL (11.6-15.3); LYMPH % 33.2 % (9.0-44.0); LYMPHOCYTE # 1.5 TH/MM3 (1.0-4.8); MEAN CELL VOLUME 85.3 FL (80.0-100.0); MEAN CORPUSCULAR HEMOGLOBIN 28.9 PG (27.0-34.0); MEAN CORPUSCULAR HGB CONC 33.9 % (32.0-36.0); MEAN PLATELET VOLUME 7.9 FL (7.0-11.0); MONOCYTE # 0.4 TH/MM3 (0-0.9); NEUT % 54.7 % (16.0-70.0); PLATELET COUNT 244 TH/MM3 (150-450); RED BLOOD COUNT 2.75 MIL/MM3 (4.00-5.30); RED CELL DISTRIBUTION WIDTH 16.3 % (11.6-17.2); WHITE BLOOD COUNT 4.6 TH/MM3 (4.0-11.0)
[2017-07-14 18:23] LABS: ALBUMIN 1.9 GM/DL (3.4-5.0); ALKALINE PHOSPHATASE 90 U/L (45-117); ALT (GPT) 15 U/L (10-53); AST (GOT) 23 U/L (15-37); BICARBONATE 27.8 MEQ/L (21.0-32.0); BLOOD UREA NITROGEN 10 MG/DL (7-18); CALCIUM 7.7 MG/DL (8.5-10.1); CHLORIDE 106 MEQ/L (98-107); CREATININE 0.56 MG/DL (0.50-1.00); GLOMERULAR FILTRATION RATE 122 ML/MIN (>89); GLUCOSE,RANDOM 107 MG/DL (74-106); SODIUM (NA) 139 MEQ/L (136-145); TOTAL BILIRUBIN ADULT 0.2 MG/DL (0.2-1.0); TOTAL PROTEIN 6.7 GM/DL (6.4-8.2)
[2017-07-15] VITALS (7 sets, daily range): BP systolic 115–128; BP diastolic 57–75; PULSE 74–92; RESP 16–18; TEMP 98–98.5; O2SAT 96–98
[2017-07-15] MEDS: PENICILLIN G POTASSIUM INJ 4,000,000 UNITS in SODIUM CHLORIDE 0.9% INJ 100 ML IV SCH ×6 (03:39→23:25)
[2017-07-15] MEDS: METHADONE HCL 10 MG TAB PO SCH ×3 (08:47→23:26)
[2017-07-15] MEDS: SODIUM CHLORIDE 0.9% FLUSH 10 ML FLUSH IV FLUSH SCH ×2 (08:47→20:32)
--- NOTE | 2017-07-15 11:04 | ECHRPT ---
Indication: VEGETATIONS CONCLUSIONS Normal left ventricular size. Wall thickness is normal. The left ventricular systolic function is normal with an estimated ejection fraction of 55%. The left atrial size is mildly dilated. The right atrial size is upper limits of normal. Mild mitral valve regurgitation. Mild aortic valve regurgitation. There is mild tricuspid valve regurgitation. There is estimated moderate pulmonary hypertension present (52 mmHg). Findings consistent with mobile vegetation on the tricuspid valve (1.4 x 0.5 cm). There is a trivial pericardial effusion present. BP: / HR: Rhythm: MEASUREMENTS (Male / Female) Normal Values Technical Quality:Good 2D ECHO LV Diastolic Diameter PLAX 4.7 cm 4.2 - 5.9 / 3.9 - 5.3 cm LV Systolic Diameter PLAX 3.6 cm IVS Diastolic Thickness 0.8 cm 0.6 - 1.0 / 0.6 - 0.9 cm LVPW Diastolic Thickness 0.8 cm 0.6 - 1.0 / 0.6 - 0.9 cm LV Relative Wall Thickness 0.3 LA Systolic Diameter LX 4.5 cm 3.0 - 4.0 / 2.7 - 3.8 cm DOPPLER Mitral E Point Velocity 104.0 cm/s Mitral A Point Velocity 63.7 cm/s Mitral E to A Ratio 1.6 TR Peak Velocity 334.0 cm/s TR Peak Gradient 44.6 mmHg Right Atrial Pressure 5.0 mmHg Pulmonary Artery Systolic Pressu 49.6 mmHg Right Ventricular Systolic Press 49.6 mmHg FINDINGS LEFT VENTRICLE Normal left ventricular size. Wall thickness is normal. The left ventricular systolic function is normal with an estimated ejection fraction of 55%. RIGHT VENTRICLE Normal right ventricular size and systolic function. LEFT ATRIUM The left atrial size is mildly dilated. RIGHT ATRIUM The right atrial size is upper limits of normal. ATRIAL SEPTUM Normal atrial septal thickness without atrial level shunting by limited color doppler interrogation. AORTA The aortic root and proximal ascending aorta are normal in size on limited imaging. MITRAL VALVE Mild mitral valve regurgitation. AORTIC VALVE Mild aortic valve regurgitation. TRICUSPID VALVE There is mild tricuspid valve regurgitation. There is estimated moderate pulmonary hypertension present (52 mmHg). Findings consistent with vegetation on the tricuspid valve 1.4x .5 cm PULMONARY VALVE No pulmonary valve regurgitation or stenosis. VESSELS The inferior vena cava is normal in size. PERICARDIUM There is a trivial pericardial effusion present. Dave Ferrari MD, FACC (Electronically Signed) Final Date:15 July 2017 11:02
[2017-07-15] MEDS ORDERED: LORazepam 1 MG TAB PO PRN (11:45)
[2017-07-15] MEDS ORDERED: LORazepam 2 MG/ML VIAL IV PUSH ONE (11:45)
--- NOTE | 2017-07-15 13:30 | HHI.PR ---
Subjective Remarks Follow-up for endocarditis and bacteremia Patient anxious today. She feels like everything is going wrong. She said that she is trying to order lunch and she lost her IV. She states she is annoyed with the sound from her IV. Her nurses at the bedside during the interview. Objective Vitals Vital Signs Date Time Temp Pulse Resp B/P (MAP) Pulse Ox O2 Delivery O2 Flow Rate FiO2 07/15/17 12:00 98.5 81 18 121/70 (87) 97 07/15/17 10:23 74 07/15/17 09:10 Room Air 07/15/17 08:00 98.1 75 18 115/57 (76) 98 07/15/17 04:09 Room Air 07/15/17 04:00 98.0 74 17 122/71 (88) 98 07/15/17 04:00 76 07/15/17 00:00 Room Air 07/15/17 00:00 78 07/15/17 00:00 98.2 80 18 125/75 (92) 96 07/14/17 20:00 83 07/14/17 20:00 Room Air 07/14/17 20:00 98.8 82 19 143/82 (102) 100 07/14/17 18:33 Room Air 07/14/17 16:40 91 07/14/17 16:00 98.4 94 18 118/72 (87) 97 07/14/17 15:37 Room Air I/O 07/14/17 07/14/17 07/14/17 07/15/17 07/15/17 07/15/17 07:00 15:00 23:00 07:00 15:00 23:00 Intake Total 480 ml 580 ml 2540 ml Balance 480 ml 580 ml 2540 ml Intake Oral 480 ml 480 ml 240 ml IV Total 100 ml 2300 ml # Voids 2 6 4 # Bowel Movements 1 0 Result Diagram: 07/14/17 1715 07/14/17 1715 Objective Remarks GENERAL: very thin female in NAD but anxious. SKIN: Warm and dry. HEAD: Normocephalic. EYES: No scleral icterus. No injection or drainage. NECK: Supple, trachea midline. No JVD or lymphadenopathy. CARDIOVASCULAR: Regular rate and rhythm without murmurs, gallops, or rubs. RESPIRATORY: Breath sounds equal bilaterally. No accessory muscle use. GASTROINTESTINAL: Abdomen soft, non-tender, nondistended. MUSCULOSKELETAL: No cyanosis, or edema. BACK: Nontender without obvious deformity. No CVA tenderness. Medications and IVs Current Medications Vancomycin HCl 1250 mg/Sodium Chloride 262.5 ml @ 262.5 mls/ hr ONCE STAT IV Last administered on 07/13/17at 00:44; Start 07/12/17 at 23:14; Stop 07/13/17 at 00:13; Status DC Piperacillin Sod/ Tazobactam Sod 100 ml @ 200 mls/hr ONCE STAT IV Last administered on 07/12/17at 23:52; Start 07/12/17 at 23:14; Stop 07/12/17 at 23:43 ; Status DC Sodium Chloride 1,000 ml @ 999 mls/hr BOLUS ONCE IV Last administered on 07/12at 23:52; Start 07/12/17 at 23:15; Stop 07/13/17 at 00:15; Status DC Sodium Chloride 1,000 ml @ 999 mls/hr BOLUS ONCE IV Last administered on 07/12at 23:52; Start 07/12/17 at 23:15; Stop 07/13/17 at 00:15; Status DC Sodium Chloride 1,000 ml @ 999 mls/hr BOLUS ONCE IV Last administered on 07/13at 01:07; Start 07/13/17 at 01:00; Stop 07/13/17 at 02:00; Status DC Acetaminophen (Tylenol) 650 mg ONCE ONCE PO Last administered on 07/13/17at 01: 07; Start 07/13/17 at 01:00; Stop 07/13/17 at 01:01; Status DC Sodium Chloride 1,000 ml @ 100 mls/hr Q10H IV Last administered on 07/14/17at 23:19; Start 07/13/17 at 02:14 Sodium Chloride (NS Flush) 2 ml UNSCH PRN IV FLUSH FLUSH AFTER USING IV ACCESS ; Start 07/13/17 at 02:15 Sodium Chloride (NS Flush) 2 ml BID IV FLUSH ; Start 07/13/17 at 09:00 Acetaminophen (Tylenol) 650 mg Q4H PRN PO TEMP > 100.4 Last administered on at 17:30; Start 07/13/17 at 02:15 Ondansetron HCl (Zofran Inj) 4 mg Q6H PRN IVP NAUSEA OR VOMITING; Start at 02:15 Naloxone HCl (Narcan Inj) 0.4 mg UNSCH PRN IV PUSH SEE LABEL COMMENTS; Start at 02:15 Pharmacy Profile Note 0 ml @ 0 mls/hr UNSCH OTHER ; Start 07/13/17 at 02:15; Stop 07/14/17 at 11:10; Status DC Piperacillin Sod/ Tazobactam Sod 50 ml @ 100 mls/hr Q6H IV ; Start 07/13/17 at 06:00; Stop 07/13/17 at 08:53; Status DC Vancomycin HCl 1250 mg/Sodium Chloride 262.5 ml @ 250 mls/hr Q12H IV Last administered on 07/13/17at 11:32; Start 07/13/17 at 12:00; Stop 07/14/17 at 11:10 ; Status DC Miscellaneous Information SPECIFIC LAB TO BE DRAWN:VANCOMYCIN TROUGH DATE TO... ONCE ONCE .XX ; Start 07/14/17 at 11:45; Stop 07/14/17 at 11:46; Status DC Piperacillin Sod/ Tazobactam Sod 50 ml @ 100 mls/hr Q6H IV Last administered on 07/13/17at 13:00; Start 07/13/17 at 13:00; Stop 07/13/17 at 17:17; Status DC Methadone HCl (Dolophine) 10 mg Q8H PO Last administered on 07/15/17at 08:47; Start 07/13/17 at 16:00 Morphine Sulfate (Morphine Inj) 2 mg Q4H PRN IV PUSH breakthrough pain; Start 07/13/17 at 14:30 Penicillin G Potassium [id number] units/Sodium Chloride 100 ml @ 200 mls/hr Q4H IV Last administered on 07/15/17at 12:20; Start 07/14/17 at 12:00 Lorazepam (Ativan Inj) 1 mg ONCE ONCE IV PUSH Last administered on 07/15/17at 12:20; Start 07/15/17 at 11:45; Stop 07/15/17 at 12:13; Status DC Lorazepam (Ativan) 1 mg Q8H PRN PO anxiety; Start 07/15/17 at 11:45 A/P Assessment and Plan This is a 37-year-old female with a recent diagnosis of endocarditis who left AMA around July 09, 2017 from [place] Endocarditis/sepsis -Still pending records from [place]. 5 out of 6 blood cultures positive for group A strep. -Infectious disease consulting and following. Vancomycin and Zosyn discontinued. Patient on penicillin. -Echo shows mild regurgitation with a mobile vegetation tricuspid valve. EF 55% .. Continue management per infectious disease. History of IV drug abuse -Patient was using a lot of heroin. Most likely she will withdrawal. . Detox patient while she is hospitalized. Patient in agreement with treatment. Education given to doing well on methadone and as needed morphine. Anxiety -We will start Ativan. FEN Heart healthy diet Electrolytes: Monitor and replete when necessary Marguerite Barbosa MD Jul 15, 2017 13:30
[2017-07-15] MEDS: SODIUM CHLOR 0.9% 1000 ML INJ 1,000 ML IV SCH ×2 (14:17→23:26)
[2017-07-16] VITALS (9 sets, daily range): BP systolic 114–144; BP diastolic 63–71; PULSE 73–85; RESP 16–20; TEMP 98–98.7; O2SAT 94–98
[2017-07-16] MEDS: PENICILLIN G POTASSIUM INJ 4,000,000 UNITS in SODIUM CHLORIDE 0.9% INJ 100 ML IV SCH ×5 (03:08→21:06)
[2017-07-16] MEDS: SODIUM CHLORIDE 0.9% FLUSH 10 ML FLUSH IV FLUSH SCH ×2 (06:57→21:00)
[2017-07-16] MEDS: METHADONE HCL 10 MG TAB PO SCH ×2 (08:13→15:20)
--- NOTE | 2017-07-16 10:07 | HHI.PR ---
Subjective Remarks Follow-up for endocarditis and septic emboli Patient stated that her anxiety is better today. She stated that she feels a lot better today. She has no other complaints. Her mother is at the bedside during the interview. She remains afebrile. Objective Vitals Vital Signs Date Time Temp Pulse Resp B/P (MAP) Pulse Ox O2 Delivery O2 Flow Rate FiO2 07/16/17 08:00 73 07/16/17 08:00 98.1 78 20 115/71 (86) 94 07/16/17 07:19 Room Air 07/16/17 04:20 Room Air 07/16/17 04:00 79 07/16/17 04:00 98.1 73 16 114/69 (84) 95 07/16/17 00:00 Room Air 07/16/17 00:00 98.4 79 16 144/65 (91) 98 07/16/17 00:00 78 07/15/17 20:00 Room Air 07/15/17 20:00 79 07/15/17 20:00 98.5 84 16 128/69 (88) 96 07/15/17 18:33 Room Air 07/15/17 16:00 98.1 86 18 116/72 (87) 97 07/15/17 16:00 92 07/15/17 14:11 Room Air 07/15/17 12:00 98.5 81 18 121/70 (87) 97 07/15/17 12:00 80 07/15/17 10:23 74 I/O 07/15/17 07/15/17 07/15/17 07/16/17 07/16/17 07/16/17 07:00 15:00 23:00 07:00 15:00 23:00 Intake Total 2540 ml 580 ml 2140 ml Balance 2540 ml 580 ml 2140 ml Intake Oral 240 ml 480 ml 240 ml IV Total 2300 ml 100 ml 1900 ml # Voids 4 4 4 # Bowel Movements 0 0 Result Diagram: 07/14/17171407/14/171714 Objective Remarks GENERAL: very thin female in NAD CARDIOVASCULAR: Regular rate and rhythm without murmurs, gallops, or rubs. RESPIRATORY: Breath sounds equal bilaterally. No accessory muscle use. GASTROINTESTINAL: Abdomen soft, non-tender, nondistended. MUSCULOSKELETAL: No cyanosis, or edema. BACK: Nontender without obvious deformity. No CVA tenderness. Medications and IVs Current Medications Vancomycin HCl 1250 mg/Sodium Chloride 262.5 ml @ 262.5 mls/ hr ONCE STAT IV Last administered on 07/13/17at 00:44; Start 07/12/17 at 23:14; Stop 07/13/17 at 00:13; Status DC Piperacillin Sod/ Tazobactam Sod 100 ml @ 200 mls/hr ONCE STAT IV Last administered on 07/12/17at 23:52; Start 07/12/17 at 23:14; Stop 07/12/17 at 23:43 ; Status DC Sodium Chloride 1,000 ml @ 999 mls/hr BOLUS ONCE IV Last administered on 07/12at 23:52; Start 07/12/17 at 23:15; Stop 07/13/17 at 00:15; Status DC Sodium Chloride 1,000 ml @ 999 mls/hr BOLUS ONCE IV Last administered on 07/12at 23:52; Start 07/12/17 at 23:15; Stop 07/13/17 at 00:15; Status DC Sodium Chloride 1,000 ml @ 999 mls/hr BOLUS ONCE IV Last administered on 07/13at 01:07; Start 07/13/17 at 01:00; Stop 07/13/17 at 02:00; Status DC Acetaminophen (Tylenol) 650 mg ONCE ONCE PO Last administered on 07/13/17at 01: 07; Start 07/13/17 at 01:00; Stop 07/13/17 at 01:01; Status DC Sodium Chloride 1,000 ml @ 100 mls/hr Q10H IV Last administered on 07/15/17at 23:26; Start 07/13/17 at 02:14 Sodium Chloride (NS Flush) 2 ml UNSCH PRN IV FLUSH FLUSH AFTER USING IV ACCESS ; Start 07/13/17 at 02:15 Sodium Chloride (NS Flush) 2 ml BID IV FLUSH ; Start 07/13/17 at 09:00 Acetaminophen (Tylenol) 650 mg Q4H PRN PO TEMP > 100.4 Last administered on at 17:30; Start 07/13/17 at 02:15 Ondansetron HCl (Zofran Inj) 4 mg Q6H PRN IVP NAUSEA OR VOMITING; Start at 02:15 Naloxone HCl (Narcan Inj) 0.4 mg UNSCH PRN IV PUSH SEE LABEL COMMENTS; Start at 02:15 Pharmacy Profile Note 0 ml @ 0 mls/hr UNSCH OTHER ; Start 07/13/17 at 02:15; Stop 07/14/17 at 11:10; Status DC Piperacillin Sod/ Tazobactam Sod 50 ml @ 100 mls/hr Q6H IV ; Start 07/13/17 at 06:00; Stop 07/13/17 at 08:53; Status DC Vancomycin HCl 1250 mg/Sodium Chloride 262.5 ml @ 250 mls/hr Q12H IV Last administered on 07/13/17at 11:32; Start 07/13/17 at 12:00; Stop 07/14/17 at 11:10 ; Status DC Miscellaneous Information SPECIFIC LAB TO BE DRAWN:VANCOMYCIN TROUGH DATE TO... ONCE ONCE .XX ; Start 07/14/17 at 11:45; Stop 07/14/17 at 11:46; Status DC Piperacillin Sod/ Tazobactam Sod 50 ml @ 100 mls/hr Q6H IV Last administered on 07/13/17at 13:00; Start 07/13/17 at 13:00; Stop 07/13/17 at 17:17; Status DC Methadone HCl (Dolophine) 10 mg Q8H PO Last administered on 07/16/17at 08:13; Start 07/13/17 at 16:00 Morphine Sulfate (Morphine Inj) 2 mg Q4H PRN IV PUSH breakthrough pain; Start 07/13/17 at 14:30 Penicillin G Potassium 9177047 units/Sodium Chloride 100 ml @ 200 mls/hr Q4H IV Last administered on 07/16/17at 08:13; Start 07/14/17 at 12:00 Lorazepam (Ativan Inj) 1 mg ONCE ONCE IV PUSH Last administered on 07/15/17at 12:20; Start 07/15/17 at 11:45; Stop 07/15/17 at 12:13; Status DC Lorazepam (Ativan) 1 mg Q8H PRN PO anxiety; Start 07/15/17 at 11:45 A/P Assessment and Plan This is a 37-year-old female with a recent diagnosis of endocarditis who left AMA around July 09, 2017 from [place] Endocarditis/sepsis -Still pending records from [place]. 5 out of 6 blood cultures positive for group A strep. Repeat blood cultures so far negative. -Infectious disease consulting and following. Vancomycin and Zosyn discontinued. Patient on penicillin. -Echo shows mild regurgitation with a mobile vegetation tricuspid valve. EF 55% . Continue management per infectious disease. History of IV drug abuse -Per patient using a lot of heroin. Most likely she will withdrawal. . Detox patient while she is hospitalized. Patient in agreement with treatment. Education given to doing well on methadone and as needed morphine. Anxiety -Continue with Ativan. FEN Heart healthy diet Electrolytes: Monitor and replete when necessary Marguerite Barbosa MD Jul 16, 2017 10:07
[2017-07-16] MEDS: SODIUM CHLOR 0.9% 1000 ML INJ 1,000 ML IV SCH ×2 (10:14→13:45)
--- NOTE | 2017-07-16 14:02 | HHI.IDPN ---
Subjective Subjective Remarks no fever feels OK R foot pain is better Antibiotics PCN G Allergies: Coded Allergies: No Known Allergies (Unverified Allergy, Unknown, 07/12/17) Objective . Vital Signs Date Time Temp Pulse Resp B/P (MAP) Pulse Ox O2 Delivery O2 Flow Rate FiO2 07/16/17 12:00 78 07/16/17 08:00 73 07/16/17 08:00 98.1 78 20 115/71 (86) 94 07/16/17 07:19 Room Air 07/16/17 04:20 Room Air 07/16/17 04:00 79 07/16/17 04:00 98.1 73 16 114/69 (84) 95 07/16/17 00:00 Room Air 07/16/17 00:00 98.4 79 16 144/65 (91) 98 07/16/17 00:00 78 07/15/17 20:00 Room Air 07/15/17 20:00 79 07/15/17 20:00 98.5 84 16 128/69 (88) 96 07/15/17 18:33 Room Air 07/15/17 16:00 98.1 86 18 116/72 (87) 97 07/15/17 16:00 92 07/15/17 14:11 Room Air 07/16/17 07/16/17 07/17/17 15:00 23:00 07:00 Intake Total 100 ml Balance 100 ml IV Total 100 ml . Laboratory Tests Test 07/14/17 17:15 White Blood Count 4.6 TH/MM3 Red Blood Count 2.75 MIL/MM3 Hemoglobin 7.9 GM/DL Hematocrit 23.5 % Mean Corpuscular Volume 85.3 FL Mean Corpuscular Hemoglobin 28.9 PG Mean Corpuscular Hemoglobin Concent 33.9 % Red Cell Distribution Width 16.3 % Platelet Count 244 TH/MM3 Mean Platelet Volume 7.9 FL Neutrophils (%) (Auto) 54.7 % Lymphocytes (%) (Auto) 33.2 % Monocytes (%) (Auto) 8.0 % Eosinophils (%) (Auto) 3.5 % Basophils (%) (Auto) 0.6 % Neutrophils # (Auto) 2.5 TH/MM3 Lymphocytes # (Auto) 1.5 TH/MM3 Monocytes # (Auto) 0.4 TH/MM3 Eosinophils # (Auto) 0.2 TH/MM3 Basophils # (Auto) 0.0 TH/MM3 CBC Comment DIFF FINAL Differential Comment Laboratory Tests Test 07/14/17 17:15 Blood Urea Nitrogen 10 MG/DL Creatinine 0.56 MG/DL Random Glucose 107 MG/DL Total Protein 6.7 GM/DL Albumin 1.9 GM/DL Calcium Level 7.7 MG/DL Alkaline Phosphatase 90 U/L Aspartate Amino Transf (AST/SGOT) 23 U/L Alanine Aminotransferase (ALT/SGPT) 15 U/L Total Bilirubin 0.2 MG/DL Sodium Level 139 MEQ/L Potassium Level 4.0 MEQ/L Chloride Level 106 MEQ/L Carbon Dioxide Level 27.8 MEQ/L Anion Gap 5 MEQ/L Estimat Glomerular Filtration Rate 122 ML/MIN Microbiology Date/Time Source Procedure Growth Status 07/14/17 17:25 Blood Peripheral Aerobic Blood Culture - Preliminary NO GROWTH IN 2 DAYS Resulted 07/14/17 17:25 Blood Peripheral Anaerobic Blood Culture - Preliminary NO GROWTH IN 2 DAYS Resulted 07/14/17 17:15 Blood Peripheral Aerobic Blood Culture - Preliminary NO GROWTH IN 2 DAYS Resulted 07/14/17 17:15 Blood Peripheral Anaerobic Blood Culture - Preliminary NO GROWTH IN 2 DAYS Resulted Imaging Last Impressions Chest X-Ray 07/12/17 2314 Signed Impressions: Service Date/Time: June 23:26 - CONCLUSION: No acute cardiopulmonary process to explain current clinical symptoms. Sascha Saunders MD Physical Exam CONSTITUTIONAL/GENERAL: This is an adequately nourished patient, in mild distress. TUBES/LINES/DRAINS: SKIN: No jaundice, rashes, or [place] lesions.+ Needle tracks Skin temperature appropriate. Not diaphoretic. ENT: Hearing grossly normal. Nose without bleeding or purulent drainage. Throat without visible erythema, exudates, masses, or lesions. Very poor dentition CARDIOVASCULAR: Regular rate and rhythm without murmurs, gallops, or rubs. No JVD. Peripheral pulses symmetric. RESPIRATORY/CHEST: Symmetric, unlabored respirations. Clear to auscultation. Breath sounds equal bilaterally. No wheezes, rales, or rhonchi. GASTROINTESTINAL: Abdomen soft, non-tender, nondistended. No hepato-splenomegaly , or palpable masses. No guarding. Bowel sounds present. MUSCULOSKELETAL: Extremities without clubbing, cyanosis, improved BL pedal edema. R foot slightly tender on palpation No joint tenderness or effusion noted. No calf tenderness. No mottling or clubbing. NEUROLOGICAL: Awake and alert. Motor and sensory grossly within normal limits. Follows commands. Clear speech. Moves all extremities. PSYCHIATRIC:calm, cooperative Assessment & Plan Remarks Tricupid valve endocarditis sugg of streptococcus, GAS IVDU R foot pain, swelling - resolving ; abscess is doubtfull cont PCN G x 6 weeks awaiting 2 D echo fu repeat BC untill final dw pt, family @ b/s Sol Nicole MD Jul 16, 2017 14:01
[2017-07-16 18:37] LABS: HEMATOCRIT 26.4 % (35.0-46.0); HEMOGLOBIN 8.9 GM/DL (11.6-15.3); MEAN CELL VOLUME 85.1 FL (80.0-100.0); MEAN CORPUSCULAR HEMOGLOBIN 28.7 PG (27.0-34.0); MEAN CORPUSCULAR HGB CONC 33.8 % (32.0-36.0); MEAN PLATELET VOLUME 8.3 FL (7.0-11.0); PLATELET COUNT 311 TH/MM3 (150-450); RED CELL DISTRIBUTION WIDTH 16.4 % (11.6-17.2); WHITE BLOOD COUNT 5.3 TH/MM3 (4.0-11.0)
[2017-07-16 19:12] LABS: CALCIUM 8.8 MG/DL (8.5-10.1); CREATININE 0.96 MG/DL (0.50-1.00)
[2017-07-17] MEDS: METHADONE HCL 10 MG TAB PO SCH ×3 (00:01→16:20)
[2017-07-17] MEDS: PENICILLIN G POTASSIUM INJ 4,000,000 UNITS in SODIUM CHLORIDE 0.9% INJ 100 ML IV SCH ×6 (00:39→22:05)
[2017-07-17] MEDS: SODIUM CHLOR 0.9% 1000 ML INJ 1,000 ML IV SCH ×2 (04:44→16:21)
[2017-07-17 08:00] VITALS: PULSE 72
[2017-07-17 08:30] VITALS: BP 99/59; PULSE 70; RESP 20; TEMP 98.1; O2SAT 96
[2017-07-17] MEDS: SODIUM CHLORIDE 0.9% FLUSH 10 ML FLUSH IV FLUSH SCH ×2 (09:00→21:00)
[2017-07-17 12:00] VITALS: BP 115/68; PULSE 77; PULSE 80; RESP 18; TEMP 98.7; O2SAT 97
--- NOTE | 2017-07-17 15:56 | HHI.PR ---
Subjective Remarks feeling better no pain complains no diarrhea, nausea or vomiting Objective Vitals Vital Signs Date Time Temp Pulse Resp B/P (MAP) Pulse Ox O2 Delivery O2 Flow Rate FiO2 07/17/17 12:00 98.7 77 18 115/68 (84) 97 07/17/17 12:00 80 07/17/17 08:30 98.1 70 20 99/59 (72) 96 07/17/17 08:00 72 07/17/17 07:00 Room Air 07/17/17 04:00 Room Air 07/16/17 23:59 98.5 76 18 120/69 (86) 95 07/16/17 23:59 Room Air 07/16/17 23:42 77 07/16/17 20:29 85 07/16/17 20:07 Room Air 07/16/17 20:07 98.7 74 18 126/69 (88) 96 07/16/17 16:00 77 07/16/17 16:00 98.0 74 20 114/68 (83) 96 I/O 07/16/17 07/16/17 07/16/17 07/17/17 07/17/17 07/17/17 07:00 15:00 23:00 07:00 15:00 23:00 Intake Total 2140 ml 1190 ml 200 ml 1857 ml Balance 2140 ml 1190 ml 200 ml 1857 ml Intake Oral 240 ml 710 ml IV Total 1900 ml 1190 ml 200 ml 1147 ml # Voids 4 4 5 # Bowel Movements 0 0 0 Result Diagram: 07/16/17 1713 07/16/17 1713 Imaging Last Impressions Chest X-Ray 07/12/17 2314 Signed Impressions: Service Date/Time: June 23:26 - CONCLUSION: No acute cardiopulmonary process to explain current clinical symptoms. Sascha Saunders MD Objective Remarks awake and alert, no acute distress anicteric lungs- no rales regular rhythm, 4/6 systolic murmur left sternal border abdomen-soft, nontender extremities no edema neuro exam- non focal A/P Assessment and Plan This is a 37-year-old female with a recent diagnosis of endocarditis who left AMA around July 09, 2017 from [place] Endocarditis/Group a streptococcus sepsis -Still pending records from [place]. 5 out of 6 blood cultures positive for group A strep. Repeat blood cultures so far negative. -Infectious disease consulting and following. Vancomycin and Zosyn discontinued. - now on Pen G q 4 -Echo shows mild regurgitation with a mobile vegetation tricuspid valve. EF 55% . - no vegetation Continue management per infectious disease. - repeat blood cultures- no growth for 3 days History of IV drug abuse -Per patient using a lot of heroin. Most likely she will withdrawal. . Detox patient while she is hospitalized. Patient in agreement with treatment. Education given to doing well on methadone and as needed morphine. very motivated with lifestyle changes Anxiety -Continue with Ativan. FEN Heart healthy diet Electrolytes: Monitor and replete when necessary Encourage ambulation Incentive spirometry hourly Max Altman MD Jul 17, 2017 15:56
[2017-07-17 16:00] VITALS: BP 123/74; PULSE 75; PULSE 86; RESP 18; TEMP 98.8; O2SAT 96
[2017-07-17 21:10] VITALS: PULSE 71
[2017-07-18] VITALS (7 sets, daily range): BP systolic 98–114; BP diastolic 60–72; PULSE 63–151; RESP 18–20; TEMP 97.8–98.1; O2SAT 95–97
[2017-07-18] MEDS: METHADONE HCL 10 MG TAB PO SCH ×2 (00:48→08:56)
[2017-07-18] MEDS: PENICILLIN G POTASSIUM INJ 4,000,000 UNITS in SODIUM CHLORIDE 0.9% INJ 100 ML IV SCH ×4 (00:49→13:02)
[2017-07-18] MEDS: SODIUM CHLOR 0.9% 1000 ML INJ 1,000 ML IV SCH ×2 (02:16→13:02)
[2017-07-18] MEDS: SODIUM CHLORIDE 0.9% FLUSH 10 ML FLUSH IV FLUSH SCH (08:56)
--- NOTE | 2017-07-18 14:01 | HHI.PR ---
Subjective Remarks telemetry - tachycardic- rate 120-ssinus patient denies any chest pain or shortness of breath earlier and overnight was in the 80s on d/w staff- earlier had a visitor who just left- 30mmins later- patient noted tob e tachycardic on telemetry Objective Vitals Vital Signs Date Time Temp Pulse Resp B/P (MAP) Pulse Ox O2 Delivery O2 Flow Rate FiO2 07/18/17 12:00 98.1 73 19 114/72 (86) 95 07/18/17 08:53 Room Air 07/18/17 08:00 98.1 73 18 109/70 (83) 96 07/18/17 04:05 73 07/18/17 04:00 97.8 80 20 105/60 (75) 95 07/18/17 00:02 63 07/18/17 00:00 98.1 76 20 98/70 (79) 97 07/18/17 00:00 Room Air 07/17/17 21:10 71 07/17/17 19:00 Room Air 07/17/17 16:00 98.8 75 18 123/74 (90) 96 07/17/17 16:00 86 I/O 07/17/17 07/17/17 07/17/17 07/18/17 07/18/17 07/18/17 07:00 15:00 23:00 07:00 15:00 23:00 Intake Total 1857 ml 200 ml 3540 ml 320 ml Output Total 350 ml 200 ml Balance 1857 ml 200 ml 3190 ml 120 ml Intake Oral 710 ml 1540 ml 320 ml IV Total 1147 ml 200 ml 2000 ml Output Urine Total 350 ml 200 ml # Voids 5 4 # Bowel Movements 0 1 0 Result Diagram: 07/16/17 1713 07/16/17 1713 Imaging Last Impressions Chest X-Ray 07/12/17 2314 Signed Impressions: Service Date/Time: June 23:26 - CONCLUSION: No acute cardiopulmonary process to explain current clinical symptoms. Sascha Saunders MD Objective Remarks awake and alert, no acute distress anicteric lungs- no rales regular rhythm, 4/6 systolic murmur left sternal border, tachycardic abdomen-soft, nontender extremities no edema neuro exam- non focal A/P Assessment and Plan This is a 37-year-old female with a recent diagnosis of endocarditis who left AMA around July 09, 2017 from [place] Endocarditis/Group a streptococcus sepsis -Still pending records from [place]. 5 out of 6 blood cultures positive for group A strep. Repeat blood cultures so far negative. -Infectious disease consulting and following. Vancomycin and Zosyn discontinued. - now on Pen G q 4 -Echo shows mild regurgitation with a mobile vegetation tricuspid valve. EF 55% . - no vegetation Continue management per infectious disease. - repeat blood cultures- no growth for 3 days History of IV drug abuse -Per patient using a lot of heroin. Most likely she will withdrawal. . Detox patient while she is hospitalized. Patient in agreement with treatment. Education given to doing well on methadone and as needed morphine. very motivated with lifestyle changes Anxiety -Continue with Ativan. Tachycardia- sinus - get drug screen- ? illicit drug use - hemodynamically stable FEN Heart healthy diet Electrolytes: Monitor and replete when necessary Encourage ambulation Incentive spirometry hourly Max Altman MD Jul 18, 2017 14:01
== END 2017-07-18 15:05 | disposition left against medical advice (07) | DRG 871 ==
LOC: NEPC 22:49 → NEDA 07-13 01:06 → NEDH 07-13 05:38 → N04B 07-13 12:18
PROVIDERS: ADMIT Internal Medicine; ATTEND Internal Medicine
PROC: HZ2ZZZZ Detoxification Services for Substance Abuse Treatment (ICD-10-PCS; principal; 2017-07-13)
DX: A40.0 Sepsis due to streptococcus, group A (principal); I26.90 Septic pulmonary embolism without acute cor pulmonale; I33.0 Acute and subacute infective endocarditis; N17.9 Acute kidney failure, unspecified; F11.10 Opioid abuse, uncomplicated; F14.10 Cocaine abuse, uncomplicated; D64.9 Anemia, unspecified; M79.671 Pain in right foot; I08.3 Combined rheumatic disorders of mitral, aortic and tricuspid valves; F41.9 Anxiety disorder, unspecified; Z72.0 Tobacco use
CPT/HCPCS: 71045; 76937; 80048; 80053; 81001; 82550; 83605; 84484; 85025; 85027; 86403; 87040; 87186; 87205; 93005; 93308; 94150; 96365; 96367; J2060; J2540; J2543; J3370; J7030; J7050

== ENCOUNTER 2017-08-13 11:40 | Inpatient (IN) | payer MEDICAID ==
[2017-08-13] VITALS (7 sets, daily range): BP systolic 91–134; BP diastolic 51–85; PULSE 92–118; RESP 18–23; TEMP 97.7–100.4; O2SAT 96–100
[~2017-08-13] VITALS: Ht 160 cm; Wt 52.0 kg
[2017-08-13 12:29] LABS: AUTOMATED NEUTROPHIL # 8.7 TH/MM3 (1.8-7.7); BASOPHIL % 0.3 % (0.0-2.0); EOSINOPHIL % 0.1 % (0.0-4.0); HEMATOCRIT 37.8 % (35.0-46.0); HEMOGLOBIN 12.8 GM/DL (11.6-15.3); LYMPH % 9.4 % (9.0-44.0); MEAN CELL VOLUME 83.6 FL (80.0-100.0); MEAN CORPUSCULAR HEMOGLOBIN 28.4 PG (27.0-34.0); MEAN PLATELET VOLUME 8.2 FL (7.0-11.0); MONO % 4.9 % (0.0-8.0); MONOCYTE # 0.5 TH/MM3 (0-0.9); NEUT % 85.3 % (16.0-70.0); PLATELET COUNT 195 TH/MM3 (150-450); RED BLOOD COUNT 4.52 MIL/MM3 (4.00-5.30); RED CELL DISTRIBUTION WIDTH 15.2 % (11.6-17.2); WHITE BLOOD COUNT 10.2 TH/MM3 (4.0-11.0)
[2017-08-13 12:36] LABS: PROTHROMBIN TIME - PATIENT 10.5 SEC (9.8-11.6)
[2017-08-13 12:38] LABS: BACTERIA, URINE OCC /hpf; BLOOD, URINE MOD (NEG); CALCIUM OXALATE CRYSTALS,URINE FEW /hpf; GLUCOSE,URINE NEG (NEG); HYALINE CAST, URINE 21 /lpf (RARE); KETONE, URINE NEG (NEG); MUCUS URINE MANY /lpf (OCC); NITRITE,URINE NEG (NEG); SQUAMOUS EPITHELIAL CELL URINE 18 /hpf (0-5); URINE COLOR DARK-YELLOW (YELLW/STRAW); URINE LEUKOCYTE ESTERASE TRACE (NEG)
[2017-08-13 12:42] LABS: BILIRUBIN, URINE NEG (NEG)
[2017-08-13 12:43] LABS: ALBUMIN 3.4 GM/DL (3.4-5.0); AST (GOT) 37 U/L (15-37); BICARBONATE 22.6 MEQ/L (21.0-32.0); BLOOD UREA NITROGEN 17 MG/DL (7-18); CALCIUM 9.2 MG/DL (8.5-10.1); CHLORIDE 98 MEQ/L (98-107); GLOMERULAR FILTRATION RATE 56 ML/MIN (>89); GLUCOSE,RANDOM 147 MG/DL (74-106); SODIUM (NA) 128 MEQ/L (136-145)
[2017-08-13 12:44] LABS: ALT (GPT) 33 U/L (10-53)
[2017-08-13 12:48] LABS: ALKALINE PHOSPHATASE 81 U/L (45-117); TOTAL BILIRUBIN ADULT 0.6 MG/DL (0.2-1.0); TOTAL PROTEIN 9.9 GM/DL (6.4-8.2); TROPONIN I LESS THAN 0.02 NG/ML (0.02-0.05)
--- NOTE | 2017-08-13 12:49 | RADRPT ---
EXAM DATE/TIME: 08/13/2017 12:33 [facility] COMPARISON: CHEST SINGLE AP, July 12, 2017, 23:26. INDICATIONS : Chest pain. MEDICAL HISTORY : Endocarditis SURGICAL HISTORY : None. ENCOUNTER: Initial ACUITY: 1 day PAIN SCORE: 2/10 LOCATION: Bilateral chest FINDINGS: PA and lateral views of the chest demonstrate a normal-sized cardiac silhouette. There is no effusion , consolidation, or pneumothorax. The bones and soft tissues demonstrate no acute abnormality. CONCLUSION: No acute cardiopulmonary abnormality is identified. Ray Mejia MD on August 13, 2017 at 12:47 Board Certified Radiologist. This report was verified electronically.
[2017-08-13] MEDS ORDERED: SODIUM CHLOR 0.9% 1000 ML INJ 1,000 ML IV SCH (13:47)
--- NOTE | 2017-08-13 13:52 | PD ---
HPI Chief Complaint: Chest Pain Time Seen by Provider: 13:41 Travel History International Travel<30 days: No Contact w/Intl Traveler<30days: No Traveled to known affect area: No History of Present Illness HPI 37-year-old female with history of IV heroin and cocaine abuse presents with her mother for evaluation. She reports that in June she was admitted to a hospital in [facility] for treatment of endocarditis. She signed out AMA. She then presented here on July 12 for evaluation of chest pain and subjective fevers. She was admitted. Blood cultures grew out group A strep. Echocardiogram revealed a mobile vegetation on the tricuspid valve. She left AMA on July 18. She has continued to use IV drugs since then, most recently yesterday. She reports that for the past 2 days she has felt much worse. She reports generalized myalgias, severe chills, chest pain, nausea. PFSH Past Medical History Hx Anticoagulant Therapy: No Anxiety: Yes Depression: Yes Heart Rhythm Problems: No Cancer: No Cardiovascular Problems: Yes (endocarditis) High Cholesterol: No Chemotherapy: No Chest Pain: Yes Congestive Heart Failure: No Cerebrovascular Accident: No Diabetes: No Endocrine: No Genitourinary: No Hepatitis: Yes (hep c+) Musculoskeletal: Yes Neurologic: Yes Psychiatric: Yes (IVDA) Reproductive: No Respiratory: No Immunizations Current: Yes Seizures: Yes ?: Not Past Surgical History Hysterectomy: No Social History Alcohol Use: Yes Tobacco Use: Yes Substance Use: Yes (heroine cocaine) Allergies-Medications (Allergen,Severity, Reaction): Coded Allergies: No Known Allergies (Unverified Allergy, Unknown, 08/13/17) Reported Meds & Prescriptions Reported Meds & Active Scripts Active No Active Prescriptions or Reported Medications Review of Systems Except as stated in HPI: all other systems reviewed are Neg Physical Exam Narrative GENERAL: This is a chronically ill-appearing female SKIN: Warm and dry. Scarring noted on the extremities. HEAD: Atraumatic. Normocephalic. EYES: Pupils equal and round. No scleral icterus. No injection or drainage. ENT: No nasal bleeding or discharge. Mucous membranes pink and moist. NECK: Trachea midline. No JVD. CARDIOVASCULAR: Regular rate and rhythm. No murmur appreciated. RESPIRATORY: No accessory muscle use. Clear to auscultation. Breath sounds equal bilaterally. GASTROINTESTINAL: Abdomen soft, non-tender, nondistended. Hepatic and splenic margins not palpable. MUSCULOSKELETAL: No obvious deformities. No edema. NEUROLOGICAL: Awake and alert. No obvious cranial nerve deficits. Motor grossly within normal limits. Normal speech. Data Data Last Documented VS Vital Signs Date Time Temp Pulse Resp B/P (MAP) Pulse Ox O2 Delivery O2 Flow Rate FiO2 08/13/17 11:51 97.7 107 20 113/69 (84) 100 Orders Orders Sepsis Workup Initiated (08/13/17 ) Complete Blood Count With Diff (08/13/17 11:53) Comprehensive Metabolic Panel (08/13/17 11:53) Prothrombin Time / Inr (Pt) (08/13/17 11:53) Act Partial Throm Time (Ptt) (08/13/17 11:53) Lactic Acid Sepsis Protocol (08/13/17 11:53) Magnesium (Mg) (08/13/17 11:53) Lipase (08/13/17 11:53) Ckmb (Isoenzyme) Profile (08/13/17 11:53) Troponin I (08/13/17 11:53) Urinalysis - C+S If Indicated (08/13/17 11:53) Chest, Pa & Lat (08/13/17 11:53) Ed Urine Pregnancytest Poc (08/13/17 11:53) Electrocardiogram (08/13/17 ) Urine Culture (08/13/17 12:06) Blood Culture (08/13/17 13:47) Ondansetron Inj (Zofran Inj) (08/13/17 14:00) Sodium Chlor 0.9% 1000 Ml Inj (Ns 1000 M (08/13/17 13:47) Ketorolac Inj (Toradol Inj) (08/13/17 14:00) Lorazepam Inj (Ativan Inj) (08/13/17 14:00) Penicillin G Potassium Inj (Pfizerpen-G (08/13/17 14:00) Admit Order (Ed Use Only) (08/13/17 14:22) Labs Laboratory Tests Test 08/13/17 12:06 08/13/17 12:15 Urine Color DARK-YELLOW Urine Turbidity HAZY Urine pH 6.0 Urine Specific [place] 1.028 Urine Protein 100 mg/dL Urine Glucose (UA) NEG mg/dL Urine Ketones NEG mg/dL Urine Occult Blood MOD Urine Nitrite NEG Urine Bilirubin NEG Urine Urobilinogen 2.0 MG/DL Urine Leukocyte Esterase TRACE Urine RBC 10 /hpf Urine WBC 6 /hpf Urine Squamous Epithelial Cells 18 /hpf Urine Calcium Oxalate Crystals FEW /hpf Urine Bacteria OCC /hpf Urine Hyaline Casts 21 /lpf Urine Mucus MANY /lpf Microscopic Urinalysis Comment CATH-CULTURE IND White Blood Count 10.2 TH/MM3 Red Blood Count 4.52 MIL/MM3 Hemoglobin 12.8 GM/DL Hematocrit 37.8 % Mean Corpuscular Volume 83.6 FL Mean Corpuscular Hemoglobin 28.4 PG Mean Corpuscular Hemoglobin Concent 34.0 % Red Cell Distribution Width 15.2 % Platelet Count 195 TH/MM3 Mean Platelet Volume 8.2 FL Neutrophils (%) (Auto) 85.3 % Lymphocytes (%) (Auto) 9.4 % Monocytes (%) (Auto) 4.9 % Eosinophils (%) (Auto) 0.1 % Basophils (%) (Auto) 0.3 % Neutrophils # (Auto) 8.7 TH/MM3 Lymphocytes # (Auto) 1.0 TH/MM3 Monocytes # (Auto) 0.5 TH/MM3 Eosinophils # (Auto) 0.0 TH/MM3 Basophils # (Auto) 0.0 TH/MM3 CBC Comment DIFF FINAL Differential Comment Prothrombin Time 10.5 SEC Prothromb Time International Ratio 1.0 RATIO Activated Partial Thromboplast Time 29.5 SEC Blood Urea Nitrogen 17 MG/DL Creatinine 1.10 MG/DL Random Glucose 147 MG/DL Total Protein 9.9 GM/DL Albumin 3.4 GM/DL Calcium Level 9.2 MG/DL Magnesium Level 2.0 MG/DL Alkaline Phosphatase 81 U/L Aspartate Amino Transf (AST/SGOT) 37 U/L Alanine Aminotransferase (ALT/SGPT) 33 U/L Total Bilirubin 0.6 MG/DL Sodium Level 128 MEQ/L Potassium Level 3.6 MEQ/L Chloride Level 98 MEQ/L Carbon Dioxide Level 22.6 MEQ/L Anion Gap 7 MEQ/L Estimat Glomerular Filtration Rate 56 ML/MIN Lactic Acid Level 2.0 mmol/L Total Creatine Kinase 26 U/L Troponin I LESS THAN 0.02 NG/ML Lipase 83 U/L [facility] Medical Decision Making Medical Screen Exam Complete: Yes Emergency Medical Condition: Yes Medical Record Reviewed: Yes Differential Diagnosis Bacteremia, endocarditis, medication noncompliance, IV drug use Narrative Course Lab work was obtained in triage. CBC he was WBC count of 10.2 with 85.3% neutrophils. CMP reveals a sodium of 128, GFR 56, lactic acid within normal limits. Chest x-ray is normal. At this point in time the patient was given a 4 million unit dose of penicillin G potassium which she was previously started on during her last hospitalization for group A strep bacteremia. Discussed with the hospitalist will admit. Diagnosis Primary Impression: Endocarditis Additional Impressions: Bacteremia Hyponatremia IV drug user Admitting Information Admitting Physician Requests: Admit Scripts No Active Prescriptions or Reported Meds Amor Reyes Aug 13, 2017 13:52
[2017-08-13] MEDS ORDERED: LORazepam 2 MG/ML VIAL IV PUSH ONE (14:00)
[2017-08-13] MEDS ORDERED: ONDANSETRON HCL 4 MG/2 ML VIAL IVP ONE (14:00)
[2017-08-13] MEDS ORDERED: PENICILLIN G POTASSIUM INJ 4,000,000 UNITS in SODIUM CHLORIDE 0.9% INJ 100 ML IV ONE (14:00)
[2017-08-13] MEDS ORDERED: KETOROLAC TROMETHAMINE 30 MG/ML (IVP) VIAL IVP ONE (14:00)
--- NOTE | 2017-08-13 14:21 | PD ---
Data Data Last Documented VS Vital Signs Date Time Temp Pulse Resp B/P (MAP) Pulse Ox O2 Delivery O2 Flow Rate FiO2 08/13/17 11:51 97.7 107 20 113/69 (84) 100 Orders Orders Sepsis Workup Initiated (08/13/17 ) Complete Blood Count With Diff (08/13/17 11:53) Comprehensive Metabolic Panel (08/13/17 11:53) Prothrombin Time / Inr (Pt) (08/13/17 11:53) Act Partial Throm Time (Ptt) (08/13/17 11:53) Lactic Acid Sepsis Protocol (08/13/17 11:53) Magnesium (Mg) (08/13/17 11:53) Lipase (08/13/17 11:53) Ckmb (Isoenzyme) Profile (08/13/17 11:53) Troponin I (08/13/17 11:53) Urinalysis - C+S If Indicated (08/13/17 11:53) Chest, Pa & Lat (08/13/17 11:53) Ed Urine Pregnancytest Poc (08/13/17 11:53) Electrocardiogram (08/13/17 ) Urine Culture (08/13/17 12:06) Blood Culture (08/13/17 13:47) Ondansetron Inj (Zofran Inj) (08/13/17 14:00) Sodium Chlor 0.9% 1000 Ml Inj (Ns 1000 M (08/13/17 13:47) Ketorolac Inj (Toradol Inj) (08/13/17 14:00) Lorazepam Inj (Ativan Inj) (08/13/17 14:00) Penicillin G Potassium Inj (Pfizerpen-G (08/13/17 14:00) Labs Laboratory Tests Test 08/13/17 12:06 08/13/17 12:15 Urine Color DARK-YELLOW Urine Turbidity HAZY Urine pH 6.0 Urine Specific [place] 1.028 Urine Protein 100 mg/dL Urine Glucose (UA) NEG mg/dL Urine Ketones NEG mg/dL Urine Occult Blood MOD Urine Nitrite NEG Urine Bilirubin NEG Urine Urobilinogen 2.0 MG/DL Urine Leukocyte Esterase TRACE Urine RBC 10 /hpf Urine WBC 6 /hpf Urine Squamous Epithelial Cells 18 /hpf Urine Calcium Oxalate Crystals FEW /hpf Urine Bacteria OCC /hpf Urine Hyaline Casts 21 /lpf Urine Mucus MANY /lpf Microscopic Urinalysis Comment CATH-CULTURE IND White Blood Count 10.2 TH/MM3 Red Blood Count 4.52 MIL/MM3 Hemoglobin 12.8 GM/DL Hematocrit 37.8 % Mean Corpuscular Volume 83.6 FL Mean Corpuscular Hemoglobin 28.4 PG Mean Corpuscular Hemoglobin Concent 34.0 % Red Cell Distribution Width 15.2 % Platelet Count 195 TH/MM3 Mean Platelet Volume 8.2 FL Neutrophils (%) (Auto) 85.3 % Lymphocytes (%) (Auto) 9.4 % Monocytes (%) (Auto) 4.9 % Eosinophils (%) (Auto) 0.1 % Basophils (%) (Auto) 0.3 % Neutrophils # (Auto) 8.7 TH/MM3 Lymphocytes # (Auto) 1.0 TH/MM3 Monocytes # (Auto) 0.5 TH/MM3 Eosinophils # (Auto) 0.0 TH/MM3 Basophils # (Auto) 0.0 TH/MM3 CBC Comment DIFF FINAL Differential Comment Prothrombin Time 10.5 SEC Prothromb Time International Ratio 1.0 RATIO Activated Partial Thromboplast Time 29.5 SEC Blood Urea Nitrogen 17 MG/DL Creatinine 1.10 MG/DL Random Glucose 147 MG/DL Total Protein 9.9 GM/DL Albumin 3.4 GM/DL Calcium Level 9.2 MG/DL Magnesium Level 2.0 MG/DL Alkaline Phosphatase 81 U/L Aspartate Amino Transf (AST/SGOT) 37 U/L Alanine Aminotransferase (ALT/SGPT) 33 U/L Total Bilirubin 0.6 MG/DL Sodium Level 128 MEQ/L Potassium Level 3.6 MEQ/L Chloride Level 98 MEQ/L Carbon Dioxide Level 22.6 MEQ/L Anion Gap 7 MEQ/L Estimat Glomerular Filtration Rate 56 ML/MIN Lactic Acid Level 2.0 mmol/L Total Creatine Kinase 26 U/L Troponin I LESS THAN 0.02 NG/ML Lipase 83 U/L MDM Supervised Visit with ALPHONSE: Yes Narrative Course I, Dr. Milton, have reviewed the advance practice practitioner's documentation and am in agreement, met with the patient face to face, made the diagnosis, and the medical decision making was done by me. *My assessment and Findings: I met with the patient. She has long-standing history of IV drug abuse and history of endocarditis. Left AMA prior to completing treatment before and now returns after using more IV drugs. I reviewed labs. She agrees to readmit for 2 sets of blood cultures and IV antibiotics. Admitting Information Admitting Physician Requests: Admit Scripts No Active Prescriptions or Reported Meds Shaheed Milton MD Aug 13, 2017 14:21
[2017-08-13] MEDS ORDERED: ONDANSETRON HCL 4 MG/2 ML VIAL IVP PRN (15:00)
[2017-08-13] MEDS ORDERED: LACTULOSE SYRUP 20 GM/30 ML CUP PO PRN (15:00)
[2017-08-13] MEDS ORDERED: SODIUM CHLORIDE 0.9% FLUSH 10 ML FLUSH IV FLUSH PRN (15:00)
[2017-08-13] MEDS ORDERED: BISACODYL 10 MG SUPP RECTAL PRN (15:00)
[2017-08-13] MEDS ORDERED: SENNOSIDES 8.6 MG TAB PO PRN (15:00)
[2017-08-13] MEDS ORDERED: MAGNESIUM HYDROXIDE SUSP 30 ML CUP PO PRN (15:00)
[2017-08-13] MEDS ORDERED: NALOXONE HCL 0.4 MG/ML AMP IV PUSH PRN (15:00)
[2017-08-13] MEDS: ENOXAPARIN SODIUM 40 MG/0.4 ML SYRINGE SQ SCH (16:02)
[2017-08-13] MEDS: ACETAMINOPHEN 325 MG TAB PO PRN (17:01)
--- NOTE | 2017-08-13 17:20 | HHI.HP ---
HPI Service [facility] Primary Care Physician No Primary Care Physician Admission Diagnosis Endocarditis, bacteremia Diagnoses: Chief Complaint: fever, chills Travel History International Travel<30 Days: No Contact w/Intl Traveler <30 Da: No Traveled to Known Affected Are: No History of Present Illness 37-year-old female with history of IV heroin and cocaine abuse, endocarditis, hepatitis C, anxiety and depression presents with her mother for evaluation. She reports that in June she was admitted to a hospital in [facility] for treatment of endocarditis. She signed out AMA. She then presented here on July 12 for evaluation of chest pain and subjective fevers. She was admitted. Blood cultures grew out group A strep. Echocardiogram revealed a mobile vegetation on the tricuspid valve. She left AMA on July 18. She has continued to use IV drugs since then, most recently yesterday. She reports that for the past 2 days she has felt much worse. She reports generalized myalgias, severe chills, chest pain, nausea. Her mother brought her here for further eval. Review of Systems Except as stated in HPI: all other systems reviewed are Neg Past Family Social History Past Medical History IV heroin and cocaine abuse, endocarditis, hepatitis C, anxiety and depression Past Surgical History no surgeries Reported Medications Last Impressions Chest X-Ray 08/13/17 1153 Signed Impressions: Service Date/Time: Sunday, August 13, 2017 12:33 - CONCLUSION: No acute cardiopulmonary abnormality is identified. Ray Mejia MD Allergies: Coded Allergies: No Known Allergies (Unverified Allergy, Unknown, 08/13/17) Family History Father heart problems unspecified Mother is healthy Social History Alcohol Use: Yes Tobacco Use: Yes Substance Use: Yes (heroine cocaine) Physical Exam Vital Signs Vital Signs Date Time Temp Pulse Resp B/P (MAP) Pulse Ox O2 Delivery O2 Flow Rate FiO2 08/13/17 17:02 100.4 106 23 100/60 (73) Room Air 08/13/17 16:08 107 23 102/55 (71) 97 08/13/17 14:00 118 22 134/85 (101) 99 08/13/17 11:51 97.7 107 20 113/69 (84) 100 Physical Exam GENERAL: This is a chronically ill-appearing female. SKIN: Scarring noted on the extremities. cool and dry. HEAD: Atraumatic. Normocephalic. No temporal or scalp tenderness. EYES: Pupils equal round and reactive. Extraocular motions intact. No scleral icterus. No injection or drainage. ENT: Nose without bleeding, purulent drainage or septal hematoma. Throat without erythema, tonsillar hypertrophy or exudate. Uvula midline. Airway patent. NECK: Trachea midline. No JVD or lymphadenopathy. Supple, nontender, no meningeal signs. CARDIOVASCULAR: Regular rate and rhythm without murmurs, gallops, or rubs. RESPIRATORY: Clear to auscultation. Breath sounds equal bilaterally. No wheezes , rales, or rhonchi. GASTROINTESTINAL: Abdomen soft, non-tender, nondistended. No hepato-splenomegaly , or palpable masses. No guarding. MUSCULOSKELETAL: Extremities without clubbing, cyanosis, or edema. No joint tenderness, effusion, or edema noted. No calf tenderness. Negative Homans sign bilaterally. NEUROLOGICAL: Awake and alert. No obvious cranial nerve deficits. Motor grossly within normal limits. Normal speech. Laboratory Laboratory Tests Test 08/13/17 12:06 08/13/17 12:15 Urine Color DARK-YELLOW Urine Turbidity HAZY Urine pH 6.0 Urine Specific [place] 1.028 Urine Protein 100 Urine Glucose (UA) NEG Urine Ketones NEG Urine Occult Blood MOD Urine Nitrite NEG Urine Bilirubin NEG Urine Urobilinogen 2.0 Urine Leukocyte Esterase TRACE Urine RBC 10 Urine WBC 6 Urine Squamous Epithelial Cells 18 Urine Calcium Oxalate Crystals FEW Urine Bacteria OCC Urine Hyaline Casts 21 Urine Mucus MANY Microscopic Urinalysis Comment CATH-CULTURE IND White Blood Count 10.2 Red Blood Count 4.52 Hemoglobin 12.8 Hematocrit 37.8 Mean Corpuscular Volume 83.6 Mean Corpuscular Hemoglobin 28.4 Mean Corpuscular Hemoglobin Concent 34.0 Red Cell Distribution Width 15.2 Platelet Count 195 Mean Platelet Volume 8.2 Neutrophils (%) (Auto) 85.3 Lymphocytes (%) (Auto) 9.4 Monocytes (%) (Auto) 4.9 Eosinophils (%) (Auto) 0.1 Basophils (%) (Auto) 0.3 Neutrophils # (Auto) 8.7 Lymphocytes # (Auto) 1.0 Monocytes # (Auto) 0.5 Eosinophils # (Auto) 0.0 Basophils # (Auto) 0.0 CBC Comment DIFF FINAL Differential Comment Prothrombin Time 10.5 Prothromb Time International Ratio 1.0 Activated Partial Thromboplast Time 29.5 Blood Urea Nitrogen 17 Creatinine 1.10 Random Glucose 147 Total Protein 9.9 Albumin 3.4 Calcium Level 9.2 Magnesium Level 2.0 Alkaline Phosphatase 81 Aspartate Amino Transf (AST/SGOT) 37 Alanine Aminotransferase (ALT/SGPT) 33 Total Bilirubin 0.6 Sodium Level 128 Potassium Level 3.6 Chloride Level 98 Carbon Dioxide Level 22.6 Anion Gap 7 Estimat Glomerular Filtration Rate 56 Lactic Acid Level 2.0 Total Creatine Kinase 26 Troponin I LESS THAN 0.02 Lipase 83 Date/Time Source Procedure Growth Status 08/13/17 14:14 Blood Peripheral Aerobic Blood Culture Pending Received 08/13/17 14:14 Blood Peripheral Anaerobic Blood Culture Pending Received 08/13/17 12:06 Urine Catheterized Urine Urine Culture Pending Received Result Diagram: 08/13/17 1215 08/13/17 1215 Imaging Last Impressions Chest X-Ray 08/13/17 1153 Signed Impressions: Service Date/Time: Sunday, August 13, 2017 12:33 - CONCLUSION: No acute cardiopulmonary abnormality is identified. MD Idalmis James VTE Risk Assessment Caprini VTE Risk Assessment: Mod/High Risk (score >= 2) Caprini Risk Assessment Model Point Value = 1 Point Value = 2 Point Value = 3 Point Value = 5 Age 41-60 Minor surgery BMI > 25 kg/m2 Swollen legs Varicose veins or History of unexplained or recurrent spontaneous Oral contraceptives or hormone replacement Sepsis (< 1 month) Serious lung disease, including pneumonia (< 1 month) Abnormal pulmonary function Acute myocardial infarction Congestive heart failure (< 1 month) History of inflammatory bowel disease Medical patient at bed rest Age 61-74 Arthroscopic surgery Major open surgery (> 45 min) Laparoscopic surgery (> 45 min) Malignancy Confined to bed (> 72 hours) Immobilizing plaster cast Central venous access Age >= 75 History of VTE Family history of VTE Factor V Leiden Prothrombin [id number] Lupus anticoagulant Anticardiolipin antibodies Elevated serum homocysteine Heparin-induced thrombocytopenia Other congenital or acquired thrombophilia Stroke (< 1 month) Elective arthroplasty Hip, pelvis, or leg fracture Acute spinal cord injury (< 1 month) Prophylaxis Regimen Total Risk Factor Score Risk Level Prophylaxis Regimen 0-1 Low Early ambulation 2 Moderate Order ONE of the following: *Sequential Compression Device (SCD) *Heparin 5000 units SQ BID 3-4 Higher Order ONE of the following medications: *Heparin 5000 units SQ TID *Enoxaparin/Lovenox 40 mg SQ daily (WT < 150 kg, CrCl > 30 mL/min) *Enoxaparin/Lovenox 30 mg SQ daily (WT < 150 kg, CrCl > 10-29 mL/min) *Enoxaparin/Lovenox 30 mg SQ BID (WT < 150 kg, CrCl > 30 mL/min) AND/OR *Sequential Compression Device (SCD) 5 or more Highest Order ONE of the following medications: *Heparin 5000 units SQ TID (Preferred with Epidurals) *Enoxaparin/Lovenox 40 mg SQ daily (WT < 150 kg, CrCl > 30 mL/min) *Enoxaparin/Lovenox 30 mg SQ daily (WT < 150 kg, CrCl > 10-29 mL/min) *Enoxaparin/Lovenox 30 mg SQ BID (WT < 150 kg, CrCl > 30 mL/min) AND *Sequential Compression Device (SCD) Assessment and Plan Problem List: (1) IV drug user ICD Code: F19.90 - Other psychoactive substance use, unspecified, uncomplicated Status: Acute (2) Endocarditis ICD Code: I38 - Endocarditis, valve unspecified Status: Acute (3) Hyponatremia ICD Code: E87.1 - Hypo-osmolality and hyponatremia Status: Acute (4) Bacteremia ICD Code: R78.81 - Bacteremia Status: Acute (5) Group A streptocococal sepsis Status: Acute (6) Polysubstance abuse ICD Code: F19.10 - Other psychoactive substance abuse, uncomplicated Status: Chronic Assessment and Plan Tricuspid valve Endocarditis per recent ECHO Bacteremia, group A strep bacteremia on last admission. Patient left AMA on last admission. Hyponatremia Na of 128 on admission IV drug user cocaine and heroin. Counselled extensively Repeat blood cultures as patient with recent IVD use Start IV penicillin G Consult ID was seen last by Dr Hartley ID Start IVF NS monitor Na Encourage PO intake Discussed Condition With pt, mother at bedside, nurse, ID physician Physician Certification 2 Midnight Certification Type: Admission for Inpatient Services Order for Inpatient Services The services are ordered in accordance with Medicare regulations or non- Medicare payer requirements, as applicable. In the case of services not specified as inpatient-only, they are appropriately provided as inpatient services in accordance with the 2-midnight benchmark. Estimated LOS (days): 6 days is the estimated time the patient will need to remain in the hospital, assuming treatment plan goals are met and no additional complications. Post-Hospital Plan: Home Betty Santamaria MD Aug 13, 2017 17:20
[2017-08-13] MEDS: SODIUM CHLOR 0.9% 1000 ML INJ 1,000 ML IV SCH (17:59)
[2017-08-13] MEDS: PENICILLIN G SODIUM INJ 4,000,000 UNITS in SODIUM CHLORIDE 0.9% INJ 100 ML IV SCH ×2 (18:00→21:36)
[2017-08-13] MEDS: SODIUM CHLORIDE 0.9% FLUSH 10 ML FLUSH IV FLUSH SCH (21:00)
[2017-08-13] MEDS: DOCUSATE SODIUM 50 MG/SENNA 8.6 MG TAB PO SCH (21:00)
[2017-08-14] VITALS (7 sets, daily range): BP systolic 106–126; BP diastolic 54–75; PULSE 74–115; RESP 18–20; TEMP 97.1–100; O2SAT 96–99
[2017-08-14] MEDS: LORazepam 0.5 MG TAB PO PRN ×2 (02:01→08:31)
[2017-08-14] MEDS: PENICILLIN G SODIUM INJ 4,000,000 UNITS in SODIUM CHLORIDE 0.9% INJ 100 ML IV SCH ×6 (02:02→21:34)
[2017-08-14] MEDS: SODIUM CHLOR 0.9% 1000 ML INJ 1,000 ML IV SCH ×3 (05:06→21:35)
[2017-08-14] MEDS: SODIUM CHLORIDE 0.9% FLUSH 10 ML FLUSH IV FLUSH SCH ×2 (08:10→21:34)
[2017-08-14] MEDS: DOCUSATE SODIUM 50 MG/SENNA 8.6 MG TAB PO SCH ×2 (08:12→21:00)
[2017-08-14] MEDS: ACETAMINOPHEN 325 MG TAB PO PRN (08:21)
[2017-08-14] MEDS: ACETAMINOPHEN 1000 MG/100 ML 100 ML IV SCH ×2 (14:12→21:34)
[2017-08-14] MEDS: ENOXAPARIN SODIUM 40 MG/0.4 ML SYRINGE SQ SCH (14:17)
--- NOTE | 2017-08-14 15:32 | HHI.PR ---
Subjective Remarks Patient is in bed sleepy. Mother at bedside. Patient says she has back pain asking for more pain medications. Patient mother said last time she was here she got methadone started. However patient does not follow-up with outpatient methadone clinic verified by the nurse. Will start Tylenol IV scheduled not to exceed 3000 mg 24 hours. Continue Ativan for withdrawal symptoms. Blood cultures positive for out of 4 bottles repeat blood cultures today. Reports fevers. There is no diaphoresis no nausea or vomiting no diarrhea or constipation. Does not appear in distress Objective Vitals Vital Signs Date Time Temp Pulse Resp B/P (MAP) Pulse Ox O2 Delivery O2 Flow Rate FiO2 08/14/17 12:00 82 08/14/17 08:51 Room Air 08/14/17 08:00 100.0 111 20 126/75 (92) 96 08/14/17 08:00 115 08/14/17 04:00 98.9 102 18 106/54 (71) 97 08/14/17 04:00 104 08/14/17 00:33 98.1 105 18 114/59 (77) 96 08/14/17 00:00 109 08/13/17 20:11 99.6 92 18 105/51 (69) 97 08/13/17 20:00 101 08/13/17 20:00 Room Air 08/13/17 17:31 99.7 110 20 91/53 (66) 96 08/13/17 17:20 08/13/17 17:02 100.4 106 23 100/60 (73) Room Air 08/13/17 16:08 107 23 102/55 (71) 97 I/O 08/13/17 08/13/17 08/13/17 08/14/17 08/14/17 08/14/17 07:00 15:00 23:00 07:00 15:00 23:00 Output Total 840 ml Balance -840 ml Output Urine Total 840 ml Result Diagram: 08/13/17 1215 08/13/17 1215 Imaging Last Impressions Chest X-Ray 08/13/17 1153 Signed Impressions: Service Date/Time: Sunday, August 13, 2017 12:33 - CONCLUSION: No acute cardiopulmonary abnormality is identified. Ray Mejia MD Objective Remarks GENERAL: This is a chronically ill-appearing female. SKIN: Scarring noted on the extremities. cool and dry. HEAD: Atraumatic. Normocephalic. No temporal or scalp tenderness. EYES: Pupils equal round and reactive. Extraocular motions intact. No scleral icterus. No injection or drainage. ENT: Nose without bleeding, purulent drainage or septal hematoma. Throat without erythema, tonsillar hypertrophy or exudate. Uvula midline. Airway patent. NECK: Trachea midline. No JVD or lymphadenopathy. Supple, nontender, no meningeal signs. CARDIOVASCULAR: Regular rate and rhythm without murmurs, gallops, or rubs. RESPIRATORY: Clear to auscultation. Breath sounds equal bilaterally. No wheezes , rales, or rhonchi. GASTROINTESTINAL: Abdomen soft, non-tender, nondistended. No hepato-splenomegaly , or palpable masses. No guarding. MUSCULOSKELETAL: Extremities without clubbing, cyanosis, or edema. No joint tenderness, effusion, or edema noted. No calf tenderness. Negative Homans sign bilaterally. NEUROLOGICAL: Awake and alert. No obvious cranial nerve deficits. Motor grossly within normal limits. Normal speech. A/P Problem List: (1) IV drug user ICD Code: F19.90 - Other psychoactive substance use, unspecified, uncomplicated Status: Acute (2) Endocarditis ICD Code: I38 - Endocarditis, valve unspecified Status: Acute (3) Hyponatremia ICD Code: E87.1 - Hypo-osmolality and hyponatremia Status: Acute (4) Bacteremia ICD Code: R78.81 - Bacteremia Status: Acute (5) Group A streptocococal sepsis Status: Acute (6) Polysubstance abuse ICD Code: F19.10 - Other psychoactive substance abuse, uncomplicated Status: Chronic Assessment and Plan Tricuspid valve Endocarditis per recent ECHO Bacteremia, group A strep bacteremia on last admission. Patient left AMA on last admission. Hyponatremia Na of 128 on admission, improving, monitor IV drug user cocaine and heroin. Counselled extensively Watch for withdrawals Repeat blood cultures 08/01 positive GPC . Repeat blood cx 08/14/17 Start IV penicillin G Consult ID was seen last by Dr Hartley ID Start IVF NS monitor Na, improving Tylenol for pain/fevers. Ativan 0.5 mg po q8hrs for withdrawals. Note: verified with methadone clinic patient is not on methadone. We can't start methadone or Suboxone as patient is not on this meds as OP. Encourage PO intake Discussed Condition With pt, mother at bedside, nurse Do not give narcotics if possible and also limit Ativan use. On Tylenol IV scheduled for 5 days. Betty Santamaria MD Aug 14, 2017 15:32
--- NOTE | 2017-08-14 15:50 | EKG ---
Date Performed: 08/13/2017 Time Performed: 12:19:49 PTAGE: 37 years EKG: Sinus rhythm WITH OCCASIONAL ECTOPIC PREMATURE COMPLEXES BORDERLINE ECG PREVIOUS TRACING : 07/12/2017 23.15 Since the previous tracing, no significant change noted DOCTOR: Wale Nicole Interpretating Date/Time 08/14/2017 15:49:20
[2017-08-15] VITALS (9 sets, daily range): BP systolic 99–127; BP diastolic 59–76; PULSE 81–101; RESP 16–22; TEMP 98–99.1; O2SAT 97–100
[2017-08-15] MEDS: PENICILLIN G SODIUM INJ 4,000,000 UNITS in SODIUM CHLORIDE 0.9% INJ 100 ML IV SCH ×7 (03:00→22:07)
[2017-08-15] MEDS: ACETAMINOPHEN 1000 MG/100 ML 100 ML IV SCH ×3 (04:50→22:08)
[2017-08-15] MEDS: DOCUSATE SODIUM 50 MG/SENNA 8.6 MG TAB PO SCH ×2 (09:00→21:00)
[2017-08-15] MEDS: SODIUM CHLORIDE 0.9% FLUSH 10 ML FLUSH IV FLUSH SCH ×2 (09:00→21:00)
[2017-08-15] MEDS: SODIUM CHLOR 0.9% 1000 ML INJ 1,000 ML IV SCH ×2 (09:06→22:26)
--- NOTE | 2017-08-15 11:10 | HHI.PR ---
Subjective Remarks The patient is in bed she appears sleepy. However she is asking for more pain medication says she has withdrawals however she does not appear with withdrawals at this time. Patient reports some nausea and vomiting however she is able to eat. No fever or chills. Reports chest pain. Patient is asking for more pain medications. Objective Vitals Vital Signs Date Time Temp Pulse Resp B/P (MAP) Pulse Ox O2 Delivery O2 Flow Rate FiO2 08/15/17 08:00 Room Air 08/15/17 08:00 99.1 97 18 121/76 (91) 98 08/15/17 06:23 98.2 101 20 127/74 (91) 99 08/15/17 00:00 99.1 95 22 110/59 (76) 97 08/14/17 23:55 Room Air 08/14/17 22:00 Room Air 08/14/17 20:00 97.9 75 19 106/66 (79) 99 08/14/17 16:00 97.1 74 20 115/73 (87) 98 08/14/17 16:00 75 08/14/17 12:00 97.6 77 20 115/71 (86) 98 08/14/17 12:00 82 I/O 08/14/17 08/14/17 08/14/17 08/15/17 08/15/17 08/15/17 06:59 14:59 22:59 06:59 14:59 22:59 Intake Total 300 ml 480 ml Output Total 840 ml Balance -840 ml 300 ml 480 ml Intake Oral 480 ml IV Total 300 ml Output Urine Total 840 ml # Voids 2 1 # Bowel Movements 0 0 Result Diagram: 08/13/17 1215 08/13/17 1215 Imaging Last Impressions Chest X-Ray 08/13/17 1153 Signed Impressions: Service Date/Time: Sunday, August 13, 2017 12:33 - CONCLUSION: No acute cardiopulmonary abnormality is identified. Ray Mejia MD Objective Remarks GENERAL: This is a chronically ill-appearing female. SKIN: Scarring noted on the extremities. cool and dry. HEAD: Atraumatic. Normocephalic. No temporal or scalp tenderness. EYES: Pupils equal round and reactive. Extraocular motions intact. No scleral icterus. No injection or drainage. ENT: Nose without bleeding, purulent drainage or septal hematoma. Throat without erythema, tonsillar hypertrophy or exudate. Uvula midline. Airway patent. NECK: Trachea midline. No JVD or lymphadenopathy. Supple, nontender, no meningeal signs. CARDIOVASCULAR: Regular rate and rhythm without murmurs, gallops, or rubs. RESPIRATORY: Clear to auscultation. Breath sounds equal bilaterally. No wheezes , rales, or rhonchi. GASTROINTESTINAL: Abdomen soft, non-tender, nondistended. No hepato-splenomegaly , or palpable masses. No guarding. MUSCULOSKELETAL: Extremities without clubbing, cyanosis, or edema. No joint tenderness, effusion, or edema noted. No calf tenderness. Negative Homans sign bilaterally. NEUROLOGICAL: Awake and alert. No obvious cranial nerve deficits. Motor grossly within normal limits. Normal speech. A/P Problem List: (1) IV drug user ICD Code: F19.90 - Other psychoactive substance use, unspecified, uncomplicated Status: Acute (2) Endocarditis ICD Code: I38 - Endocarditis, valve unspecified Status: Acute (3) Hyponatremia ICD Code: E87.1 - Hypo-osmolality and hyponatremia Status: Acute (4) Bacteremia ICD Code: R78.81 - Bacteremia Status: Acute (5) Group A streptocococal sepsis Status: Acute (6) Polysubstance abuse ICD Code: F19.10 - Other psychoactive substance abuse, uncomplicated Status: Chronic Assessment and Plan Tricuspid valve Endocarditis per recent ECHO Bacteremia, group A strep bacteremia on last admission. Patient with 4/4 GPC on this admission also. Patient left AMA on last admission. Hyponatremia Na of 128 on admission, improving, monitor IV drug user cocaine and heroin. Counselled extensively Watch for withdrawals Repeat blood cultures 4/4 positive GPC . Repeat blood cx 08/14/17 Start IV penicillin G Consult ID was seen last by Dr Hartley ID Start IVF NS monitor Na, improving Tylenol for pain/fevers. Ativan 0.5 mg po q8hrs for withdrawals. Note: verified with methadone clinic patient is not on methadone. We can't start methadone or Suboxone as patient is not on this meds as OP. Encourage PO intake Discussed Condition With pt, mother at bedside, nurse Do not give narcotics if possible and also limit Ativan use. On Tylenol IV scheduled for 5 days. Betty Santamaria MD Aug 15, 2017 11:10
[2017-08-15] MEDS: LORazepam 0.5 MG TAB PO PRN ×2 (13:13→22:26)
[2017-08-15] MEDS: ENOXAPARIN SODIUM 40 MG/0.4 ML SYRINGE SQ SCH (17:46)
[2017-08-16] VITALS: PULSE 66
[2017-08-16] MEDS: PENICILLIN G SODIUM INJ 4,000,000 UNITS in SODIUM CHLORIDE 0.9% INJ 100 ML IV SCH ×2 (00:52→05:51)
[2017-08-16 04:00] VITALS: PULSE 59
[2017-08-16] MEDS: ACETAMINOPHEN 1000 MG/100 ML 100 ML IV SCH (05:51)
[2017-08-16 10:08] LABS: ALBUMIN 2.5 GM/DL (3.4-5.0); ALKALINE PHOSPHATASE 69 U/L (45-117); ALT (GPT) 23 U/L (10-53); AST (GOT) 17 U/L (15-37); BICARBONATE 27.6 MEQ/L (21.0-32.0); BLOOD UREA NITROGEN 21 MG/DL (7-18); CALCIUM 10.1 MG/DL (8.5-10.1); CHLORIDE 103 MEQ/L (98-107); GLOMERULAR FILTRATION RATE 63 ML/MIN (>89); GLUCOSE,RANDOM 93 MG/DL (74-106); SODIUM (NA) 138 MEQ/L (136-145); TOTAL BILIRUBIN ADULT 0.4 MG/DL (0.2-1.0); TOTAL PROTEIN 6.7 GM/DL (6.4-8.2)
--- NOTE | 2017-08-16 10:40 | HHI.DS ---
Discharge Summary Admission Date Aug 13, 2017 at 14:23 Discharge Date: Aug 16, 2017 Admitting Diagnosis Endocarditis, bacteremia (1) IV drug user ICD Code: F19.90 - Other psychoactive substance use, unspecified, uncomplicated Status: Acute (2) Endocarditis ICD Code: I38 - Endocarditis, valve unspecified Status: Acute (3) Hyponatremia ICD Code: E87.1 - Hypo-osmolality and hyponatremia Status: Acute (4) Bacteremia ICD Code: R78.81 - Bacteremia Status: Acute (5) Group A streptocococal sepsis Status: Acute (6) Polysubstance abuse ICD Code: F19.10 - Other psychoactive substance abuse, uncomplicated Status: Chronic Procedures no procedures Brief History - From Admission 37-year-old female with history of IV heroin and cocaine abuse, endocarditis, hepatitis C, anxiety and depression presents with her mother for evaluation. She reports that in June she was admitted to a hospital in [facility] for treatment of endocarditis. She signed out AMA. She then presented here on July 12 for evaluation of chest pain and subjective fevers. She was admitted. Blood cultures grew out group A strep. Echocardiogram revealed a mobile vegetation on the tricuspid valve. She left AMA on July 18. She has continued to use IV drugs since then, most recently yesterday. She reports that for the past 2 days she has felt much worse. She reports generalized myalgias, severe chills, chest pain, nausea. Her mother brought her here for further eval. CBC/BMP: 08/13/17 1215 08/16/17 0900 Significant Findings Laboratory Tests Test 08/13/17 12:06 08/13/17 12:15 08/16/17 09:00 Urine Color DARK-YELLOW (YELLW/STRAW) Urine Turbidity HAZY (CLEAR) Urine Protein 100 mg/dL (NEG-TRACE) Urine Occult Blood MOD (NEG) Urine Leukocyte Esterase TRACE (NEG) Urine RBC 10 /hpf (0-3) Urine WBC 6 /hpf (0-5) Urine Calcium Oxalate Crystals FEW /hpf (NONE) Urine Bacteria OCC /hpf (NONE) Urine Mucus MANY /lpf (OCC) Neutrophils (%) (Auto) 85.3 % (16.0-70.0) Neutrophils # (Auto) 8.7 TH/MM3 (1.8-7.7) Creatinine 1.10 MG/DL (0.50-1.00) Random Glucose 147 MG/DL (74-106) Total Protein 9.9 GM/DL (6.4-8.2) Sodium Level 128 MEQ/L (136-145) Estimat Glomerular Filtration Rate 56 ML/MIN (>89) 63 ML/MIN (>89) Troponin I LESS THAN 0.02 NG/ML Blood Urea Nitrogen 21 MG/DL (7-18) Albumin 2.5 GM/DL (3.4-5.0) Imaging Last Impressions Chest X-Ray 08/13/17 1153 Signed Impressions: Service Date/Time: Sunday, August 13, 2017 12:33 - CONCLUSION: No acute cardiopulmonary abnormality is identified. Ray Mejia MD PE at Discharge GENERAL: This is a chronically ill-appearing female. SKIN: Scarring noted on the extremities. cool and dry. HEAD: Atraumatic. Normocephalic. No temporal or scalp tenderness. EYES: Pupils equal round and reactive. Extraocular motions intact. No scleral icterus. No injection or drainage. ENT: Nose without bleeding, purulent drainage or septal hematoma. Throat without erythema, tonsillar hypertrophy or exudate. Uvula midline. Airway patent. NECK: Trachea midline. No JVD or lymphadenopathy. Supple, nontender, no meningeal signs. CARDIOVASCULAR: Regular rate and rhythm without murmurs, gallops, or rubs. RESPIRATORY: Clear to auscultation. Breath sounds equal bilaterally. No wheezes , rales, or rhonchi. GASTROINTESTINAL: Abdomen soft, non-tender, nondistended. No hepato-splenomegaly , or palpable masses. No guarding. MUSCULOSKELETAL: Extremities without clubbing, cyanosis, or edema. No joint tenderness, effusion, or edema noted. No calf tenderness. Negative Homans sign bilaterally. NEUROLOGICAL: Awake and alert. No obvious cranial nerve deficits. Motor grossly within normal limits. Normal speech. Pt update on day of discharge Leftt AMA. Patient with endocarditis, with multiple admissions and also repeatedly leaving AMA Hospital Course Tricuspid valve Endocarditis per recent ECHO Bacteremia, group A strep bacteremia on last admission. Patient with 4/4 GPC on this admission also. Patient left AMA on last admission. Hyponatremia Na of 128 on admission, improving, monitor IV drug user cocaine and heroin. Counselled extensively Watch for withdrawals Repeat blood cultures 08/01 positive GPC . Repeat blood cx 08/14/17 Start IV penicillin G Consult ID was seen last by Dr Hartley ID Start IVF NS monitor Na, improving Tylenol for pain/fevers. Ativan 0.5 mg po q8hrs for withdrawals. Note: verified with methadone clinic patient is not on methadone. We can't start methadone or Suboxone as patient is not on this meds as OP. Encourage PO intake Discussed Condition With pt, mother at bedside, nurse Do not give narcotics if possible and also limit Ativan use. On Tylenol IV scheduled for 5 days. Patient left AMA 08/16/17 Pt Condition on Discharge: Deteriorating Discharge Disposition: Discharge Home (left AMA) Discharge Time: > 30 minutes Discharge Instructions DIET: Follow Instructions for: As Tolerated, No Restrictions Activities you can perform: Regular-No Restrictions Medication Profile: No Active Prescriptions or Reported Meds Betty Santamaria MD Aug 16, 2017 10:40
== END 2017-08-16 08:44 | disposition left against medical advice (07) | DRG 871 ==
LOC: NEPC 11:40 → NEDA 14:23 → N04B 17:30
PROVIDERS: ADMIT Hospitalist; ATTEND Hospitalist
DX: A40.0 Sepsis due to streptococcus, group A (principal); I33.0 Acute and subacute infective endocarditis; E87.1 Hypo-osmolality and hyponatremia; F14.10 Cocaine abuse, uncomplicated; F11.10 Opioid abuse, uncomplicated; F41.9 Anxiety disorder, unspecified; F32.9 Major depressive disorder, single episode, unspecified; Z72.0 Tobacco use; Z86.19 Personal history of other infectious and parasitic diseases
CPT/HCPCS: 71046; 80053; 81001; 82550; 83605; 83690; 83735; 84484; 84703; 85025; 85610; 85730; 86403; 87040; 87086; 87205; 93005; 96374; 96375; J0131; J1650; J1885; J2060; J2405; J2540; J7030

== ENCOUNTER 2017-09-16 14:53 | Inpatient (IN) | payer MEDICAID ==
[2017-09-16] VITALS (30 sets, daily range): BP systolic 77–107; BP diastolic 47–56; PULSE 68–84; RESP 10–35; TEMP 90.7–99.2; O2SAT 97–100
[~2017-09-16] VITALS: Ht 167.6 cm; Wt 66.1 kg
[2017-09-16] MEDS ORDERED: SODIUM CHLOR 0.9% 1000 ML INJ 400 ML IV ONE (15:04)
[2017-09-16] MEDS ORDERED: SODIUM CHLOR 0.9% 1000 ML INJ 1,000 ML IV ONE ×2 (15:04)
--- NOTE | 2017-09-16 15:11 | PD ---
HPI Chief Complaint: Cardiac Complaint Time Seen by Provider: 15:04 Travel History International Travel<30 days: No Contact w/Intl Traveler<30days: No Traveled to known affect area: No History of Present Illness HPI Patient is a 37-year-old female history of IV drug abuser by chart presents emergency department with fever and altered mental status. She has been admitted to the emergency department multiple times according to records and admitted to the hospital for endocarditis and signed out AGAINST MEDICAL ADVICE multiple times as well. Patient is not able to provide any of her history on arrival she appears significantly dehydrated, she is clearly encephalopathic. Unclear how long she has been altered for, unclear how long she has been sick for. PFSH Past Medical History Hx Anticoagulant Therapy: No Arthritis: No Anxiety: Yes Depression: Yes Heart Rhythm Problems: No Cancer: No Cardiovascular Problems: Yes High Cholesterol: No Chemotherapy: No Chest Pain: Yes Congestive Heart Failure: No Cerebrovascular Accident: No Diabetes: No Endocrine: No Genitourinary: No Headaches: Yes (OCCATIONAL) Hepatitis: Yes (hep c+) Musculoskeletal: Yes Neurologic: Yes Psychiatric: Yes (IVDA) Reproductive: No Respiratory: No Immunizations Current: Yes Migraines: No Seizures: Yes Past Surgical History Hysterectomy: No Social History Alcohol Use: No Tobacco Use: Yes (1 ppd) Substance Use: Yes (IV heroine cocaine) Allergies-Medications (Allergen,Severity, Reaction): Coded Allergies: No Known Allergies (Unverified Allergy, Unknown, 08/13/17) Reported Meds & Prescriptions Reported Meds & Active Scripts Active No Active Prescriptions or Reported Medications Review of Systems ROS Limitations: Altered Mental Status Physical Exam Narrative GENERAL: Well-developed well-nourished appears much older than stated age, appears significantly dehydrated and toxic appearance. SKIN: Diaphoretic. Multiple track christina throughout her person, there are some small ulcerative lesions scattered throughout her person. HEAD: Atraumatic. Normocephalic. EYES: Pupils equal and round. No scleral icterus. No injection or drainage. ENT: No nasal bleeding or discharge. Mucous membranes pink and dry. NECK: Trachea midline. No JVD. CARDIOVASCULAR: Tachycardia with regular rhythm. No murmur appreciated. There is a systolic 4 out of 6 murmur best heard over the apex. RESPIRATORY: No accessory muscle use. Clear to auscultation. Breath sounds equal bilaterally. GASTROINTESTINAL: Abdomen soft, non-tender, nondistended. Hepatic and splenic margins not palpable. MUSCULOSKELETAL: No obvious deformities. No clubbing. No cyanosis. No edema. NEUROLOGICAL: Patient is awake, GCS [id number]=36. She is moving all 4 extremities localizes pain but does not follow commands. She moans when IVs are started. PSYCHIATRIC: Unable to assess Data Data Last Documented VS Vital Signs Date Time Temp Pulse Resp B/P (MAP) Pulse Ox O2 Delivery O2 Flow Rate FiO2 09/16/17 15:12 16 99 Nasal Cannula 3.00 09/16/17 15:01 99.2 70 98/53 (68) Orders Orders Sepsis Workup Initiated (09/16/17 ) Electrocardiogram (09/16/17 15:04) Complete Blood Count With Diff (09/16/17 15:04) Comprehensive Metabolic Panel (09/16/17 15:04) Beta Hcg (Quant/Titer) (09/16/17 15:04) Prothrombin Time / Inr (Pt) (09/16/17 15:04) Act Partial Throm Time (Ptt) (09/16/17 15:04) Lactic Acid Sepsis Protocol (09/16/17 15:04) Magnesium (Mg) (09/16/17 15:04) Phosphorus (Po4) (09/16/17 15:04) Lipase (09/16/17 15:04) Ckmb (Isoenzyme) Profile (09/16/17 15:04) Troponin I (09/16/17 15:04) Urinalysis - C+S If Indicated (09/16/17 15:04) Blood Culture (09/16/17 15:04) Chest, Single Ap (09/16/17 15:04) Blood Glucose (09/16/17 15:04) Ecg Monitoring (09/16/17 15:04) Iv Access Insert/Monitor (09/16/17 15:04) Oximetry (09/16/17 15:04) Oxygen Administration (09/16/17 15:04) Sodium Chlor 0.9% 1000 Ml Inj (Ns 1000 M (09/16/17 15:04) Sodium Chlor 0.9% 1000 Ml Inj (Ns 1000 M (09/16/17 15:04) Sodium Chlor 0.9% 1000 Ml Inj (Ns 1000 M (09/16/17 15:04) Vancomycin Inj (Vancomycin Inj) (09/16/17 15:15) Piperacil-Tazo 4.5 Gm Premix (Zosyn 4.5 (09/16/17 15:15) Ct Brain W/O Iv Contrast(Rout) (09/16/17 ) Arterial Blood Gas (Abg) (09/16/17 ) Ct Thorax/ Chest Wo Iv Contras (09/16/17 ) Admit Order (Ed Use Only) (09/16/17 ) Type And Screen (09/16/17 16:37) Red Blood Cells (Rbc) (09/16/17 16:37) Blood Product Administration (09/16/17 16:37) Sodium Chlor 0.9% 250 Ml Inj (Ns 250 Ml (09/16/17 16:45) Insert Temp Sensing Dan Cath (09/16/17 16:37) Calcium Gluconate Inj (Calcium Gluconate (09/16/17 16:45) Labs Laboratory Tests Test 09/16/17 15:29 09/16/17 16:03 White Blood Count 3.3 TH/MM3 Red Blood Count 2.61 MIL/MM3 Hemoglobin 7.1 GM/DL Hematocrit 21.4 % Mean Corpuscular Volume 82.0 FL Mean Corpuscular Hemoglobin 27.3 PG Mean Corpuscular Hemoglobin Concent 33.3 % Red Cell Distribution Width 17.7 % Platelet Count 41 TH/MM3 Mean Platelet Volume 10.6 FL Neutrophils (%) (Auto) 87.3 % Lymphocytes (%) (Auto) 8.7 % Monocytes (%) (Auto) 2.9 % Eosinophils (%) (Auto) 0.9 % Basophils (%) (Auto) 0.2 % Neutrophils # (Auto) 2.9 TH/MM3 Lymphocytes # (Auto) 0.3 TH/MM3 Monocytes # (Auto) 0.1 TH/MM3 Eosinophils # (Auto) 0.0 TH/MM3 Basophils # (Auto) 0.0 TH/MM3 CBC Comment AUTO DIFF Differential Comment AUTO DIFF CONFIRMED Platelet Estimate LOW Platelet Morphology Comment ENLARGED Ovalocytes 1+ Prothrombin Time 13.7 SEC Prothromb Time International Ratio 1.4 RATIO Activated Partial Thromboplast Time 30.4 SEC Blood Urea Nitrogen 43 MG/DL Creatinine 2.15 MG/DL Random Glucose 83 MG/DL Total Protein 5.9 GM/DL Albumin 1.4 GM/DL Calcium Level 7.0 MG/DL Phosphorus Level 4.0 MG/DL Magnesium Level 1.5 MG/DL Alkaline Phosphatase 101 U/L Aspartate Amino Transf (AST/SGOT) 60 U/L Alanine Aminotransferase (ALT/SGPT) 15 U/L Total Bilirubin 1.1 MG/DL Sodium Level 136 MEQ/L Potassium Level 3.2 MEQ/L Chloride Level 101 MEQ/L Carbon Dioxide Level 20.6 MEQ/L Anion Gap 14 MEQ/L Estimat Glomerular Filtration Rate 26 ML/MIN Lactic Acid Level 0.8 mmol/L Protein Corrected Calcium 7.6 MG/DL Total Creatine Kinase 24 U/L Troponin I 0.38 NG/ML Lipase 166 U/L Human Chorionic Gonadotropin, Quant LESS THAN 1 MIU/ML Salicylates Level 3.3 MG/DL Acetaminophen Level LESS THAN 2.0 MCG/ML Urine Color RED Urine Turbidity CLOUDY Urine pH 5.5 Urine Specific [place] 1.018 Urine Protein 100 mg/dL Urine Glucose (UA) NEG mg/dL Urine Ketones TRACE mg/dL Urine Occult Blood LARGE Urine Nitrite NEG Urine Bilirubin NEG Urine Urobilinogen 8.0 MG/DL Urine Leukocyte Esterase NEG Urine RBC /hpf Urine WBC 47 /hpf Urine Squamous Epithelial Cells 5 /hpf Urine Transitional Epithelial Cells 1 /hpf Urine Amorphous Sediment OCC Urine Bacteria FEW /hpf Urine Mucus FEW /lpf Microscopic Urinalysis Comment CATH-CULTURE IND Urine Opiates Screen POS Urine Barbiturates Screen NEG Urine Amphetamines Screen NEG Urine Benzodiazepines Screen POS Urine Cocaine Screen POS Urine Cannabinoids Screen NEG MDM Medical Decision Making Medical Screen Exam Complete: Yes Emergency Medical Condition: Yes Differential Diagnosis Sepsis, severe sepsis, septic shock, endocarditis, septic pulmonary emboli, polysubstance abuse, urinary tract infection, electrolyte abnormality, dehydration. Narrative Course Patient room to the emergency department, with high index suspicion of full septic workup was initiated, she was given a total of 3.5 cc of crystalloid between myself and EMS, she was also found to have a hemoglobin of 7.1 and 2 units of PRBCs have been ordered, she was found to be thrombocytopenic and leukocytopenia. Certainly this will preclude her having a lumbar puncture. Apparently she also has a history of HIV. Chest x-ray does show bilateral pneumonia. She was started on broad-spectrum empiric antibiotics. CT head and CT chest were reviewed by me on wet read as the patient is being transferred to the ICU and does show evidence of septic pulmonary emboli, CT head was negative. Last 24 hours Impressions Chest X-Ray 09/16/17 1504 Signed Impressions: Service Date/Time: Saturday, September 16, 2017 15:28 - CONCLUSION: 1. Patchy bilateral lower lobe airspace disease, more prominent on the right. Findings are concerning for multilobar pneumonia or aspiration. Zenon Busch MD Head CT 09/16/17 0000 Signed Impressions: Service Date/Time: Saturday, September 16, 2017 17:56 - CONCLUSION: 1. No acute intracranial abnormality. 2. Left maxillary and sphenoid sinus mucosal disease. Zenon Busch MD Chest CT 09/16/17 0000 Signed Impressions: Service Date/Time: Saturday, September 16, 2017 18:04 - CONCLUSION: 1. Small bilateral pleural effusions with dense bilateral lower lobe airspace consolidation. 2. Numerous bilateral inflammatory pulmonary nodules including cavitary nodules in the apices bilaterally. Findings are consistent with septic emboli. Zenon Busch MD Abdomen/Pelvis CT 09/16/17 0000 Signed Impressions: Service Date/Time: Saturday, September 16, 2017 18:04 - CONCLUSION: 1. Limited examination due to paucity of peritoneal fat and patient's overlying arms. 2. Hepatosplenomegaly with small amount of ascites. 3. Small to moderate amount of colonic stool without evidence for bowel obstruction. Zenon Busch MD Patient remains critically ill and prognosis is guarded. Critical Care Narrative Aggregate critical care time was 65 minutes. Time to perform other separately billable procedures was not included in the critical care time. My time did not include minutes spent treating any other patients simultaneously or on activities that did not directly contribute to the patient's treatment. The services I provided to this patient were to treat and/or prevent clinically significant deterioration that could result in: , disability, organ failure I provided critical care services requiring my management, as noted below: Chart data review, documentation time, medication orders and management, vital sign assessments/reviewing monitor data, ordering and reviewing lab tests, ordering and interpreting/reviewing x-rays and diagnostic studies, care of the patient and discussion of the patient with the admitting physicians. Diagnosis Primary Impression: Severe sepsis Additional Impressions: Multi-organ system dysfunction Septic pulmonary embolism Endocarditis Encephalopathy Admitting Information Admitting Physician Requests: Admit Scripts No Active Prescriptions or Reported Meds Condition: Edinson Mitchell MD September 16, 2017 15:11
[2017-09-16] MEDS ORDERED: PIPERACIL-TAZO 4.5 GM PREMIX 100 ML IV ONE (15:15)
[2017-09-16] MEDS ORDERED: VANCOMYCIN INJ 1,000 MG in SODIUM CHLOR 0.9% 250 ML INJ 250 ML IV ONE (15:15)
--- NOTE | 2017-09-16 16:04 | RADRPT ---
EXAM DATE/TIME: 09/16/2017 15:28 [facility] COMPARISON: CHEST SINGLE AP, July 12, 2017, 23:26. INDICATIONS : Fever MEDICAL HISTORY : Endocarditis SURGICAL HISTORY : None. ENCOUNTER: Initial ACUITY: 1 day PAIN SCORE: Non-responsive. LOCATION: Bilateral chest FINDINGS: Patchy bilateral lower lobe airspace disease, more prominent on the right. Cardiomediastinal contours are within normal limits. Bony thorax is intact. CONCLUSION: 1. Patchy bilateral lower lobe airspace disease, more prominent on the right. Findings are concerning for multilobar pneumonia or aspiration. Zenon Busch MD on September 16, 2017 at 16:02 Board Certified Radiologist. This report was verified electronically.
[2017-09-16 16:15] LABS: AUTOMATED NEUTROPHIL # 2.9 TH/MM3 (1.8-7.7); BASOPHIL % 0.2 % (0.0-2.0); EOSINOPHIL % 0.9 % (0.0-4.0); HEMATOCRIT 21.4 % (35.0-46.0); HEMOGLOBIN 7.1 GM/DL (11.6-15.3); LYMPH % 8.7 % (9.0-44.0); LYMPHOCYTE # 0.3 TH/MM3 (1.0-4.8); MEAN CORPUSCULAR HEMOGLOBIN 27.3 PG (27.0-34.0); MEAN CORPUSCULAR HGB CONC 33.3 % (32.0-36.0); MEAN PLATELET VOLUME 10.6 FL (7.0-11.0); MONO % 2.9 % (0.0-8.0); MONOCYTE # 0.1 TH/MM3 (0-0.9); NEUT % 87.3 % (16.0-70.0); PLATELET COUNT 41 TH/MM3 (150-450); RED BLOOD COUNT 2.61 MIL/MM3 (4.00-5.30); RED CELL DISTRIBUTION WIDTH 17.7 % (11.6-17.2); WHITE BLOOD COUNT 3.3 TH/MM3 (4.0-11.0)
[2017-09-16 16:24] LABS: ALBUMIN 1.4 GM/DL (3.4-5.0); ALKALINE PHOSPHATASE 101 U/L (45-117); ALT (GPT) 15 U/L (10-53); AST (GOT) 60 U/L (15-37); BICARBONATE 20.6 MEQ/L (21.0-32.0); BLOOD UREA NITROGEN 43 MG/DL (7-18); CALCIUM-PROTEIN CORRECTED 7.6 MG/DL (8.5-10.1); CHLORIDE 101 MEQ/L (98-107); CREATININE 2.15 MG/DL (0.50-1.00); GLOMERULAR FILTRATION RATE 26 ML/MIN (>89); GLUCOSE,RANDOM 83 MG/DL (74-106); MAGNESIUM 1.5 MG/DL (1.5-2.5); SODIUM (NA) 136 MEQ/L (136-145); TOTAL BILIRUBIN ADULT 1.1 MG/DL (0.2-1.0); TOTAL PROTEIN 5.9 GM/DL (6.4-8.2); TROPONIN I 0.38 NG/ML (0.02-0.05)
[2017-09-16 16:34] LABS: INTERNATIONAL NORMALIZED RATIO 1.4 RATIO; PROTHROMBIN TIME - PATIENT 13.7 SEC (9.8-11.6)
[2017-09-16] MEDS ORDERED: CALCIUM GLUCONATE INJ 1 GM in DEXTROSE 5% IN WATER 100ML INJ 100 ML IV ONE ×2 (16:45)
[2017-09-16] MEDS ORDERED: SODIUM CHLOR 0.9% 250 ML INJ 250 ML IV ONE (16:45)
[2017-09-16 16:55] LABS: OVALOCYTES 1+ (NORMAL)
[2017-09-16] MEDS ORDERED: SENNOSIDES 8.6 MG TAB PO PRN (17:00)
[2017-09-16] MEDS ORDERED: MAGNESIUM HYDROXIDE SUSP 30 ML CUP PO PRN (17:00)
[2017-09-16] MEDS ORDERED: LACTULOSE SYRUP 20 GM/30 ML CUP PO PRN (17:00)
[2017-09-16] MEDS ORDERED: BISACODYL 10 MG SUPP RECTAL PRN (17:00)
[2017-09-16] MEDS ORDERED: RESP: ALBUTEROL 2.5 MG/3 ML NEB (PRN) INH (17:00)
[2017-09-16] MEDS ORDERED: CHLORHEXIDINE GLUCONATE 2 % 1 PACK (2 CLOTHS) TOP PRN (17:00)
[2017-09-16] MEDS ORDERED: NURSING INFORMATION XX SCH (17:00)
[2017-09-16 17:03] LABS: AMORPHOUS SEDIMENT, URINE OCC; BACTERIA, URINE FEW /hpf; BLOOD, URINE LARGE (NEG); GLUCOSE,URINE NEG (NEG); KETONE, URINE TRACE mg/dL (NEG); MUCUS URINE FEW /lpf (OCC); NITRITE,URINE NEG (NEG); PH, URINE 5.5 (5.0-8.5); SQUAMOUS EPITHELIAL CELL URINE 5 /hpf (0-5); TRANSITIONAL EPI CELLS, URINE 1 /hpf; URINE COLOR RED (YELLW/STRAW); URINE LEUKOCYTE ESTERASE NEG (NEG)
[2017-09-16 17:05] LABS: BILIRUBIN, URINE NEG (NEG)
[2017-09-16] MEDS: LACTATED RINGER'S 1000 ML INJ 1,000 ML IV SCH (17:20)
[2017-09-16] MEDS ORDERED: Vancomycin Consult Pharmacy 1 EA OTHER SCH (17:30)
--- NOTE | 2017-09-16 18:11 | RADRPT ---
EXAM DATE/TIME: 09/16/2017 17:56 [facility] COMPARISON: CT BRAIN W/O CONTRAST, June 28, 2016, 2:04. INDICATIONS : Altered mental status. RADIATION DOSE: 56.35 CTDIvol (mGy) MEDICAL HISTORY : HIV. Hepatitis C. Seizures.pulmonary embolism SURGICAL HISTORY : None. ENCOUNTER: Initial ACUITY: 1 day PAIN SCALE: 3/10 LOCATION: Bilateral head TECHNIQUE: Multiple contiguous axial images were obtained of the head. Using automated exposure control and adj ustment of the mA and/or kV according to patient size, radiation dose was kept as low as reasonably a chievable to obtain optimal diagnostic quality images. DICOM format image data is available electro nically for review and comparison. FINDINGS: CEREBRUM: The ventricles are normal for age. No evidence of midline shift, mass lesion, hemorrhage or acute in farction. No extra-axial fluid collections are seen. POSTERIOR FOSSA: The cerebellum and brainstem are intact. The 4th ventricle is midline. The cerebellopontine angle i s unremarkable. EXTRACRANIAL: The visualized portion of the orbits is intact. Small mucous retention cyst in the left maxillary sin us with mild mucoperiosteal thickening in the left sphenoid sinus. SKULL: The calvaria is intact. No evidence of skull fracture. CONCLUSION: 1. No acute intracranial abnormality. 2. Left maxillary and sphenoid sinus mucosal disease. Zenon Busch MD on September 16, 2017 at 18:08 Board Certified Radiologist. This report was verified electronically.
--- NOTE | 2017-09-16 18:28 | RADRPT ---
EXAM DATE/TIME: 09/16/2017 18:04 [facility] COMPARISON: No previous studies available for comparison. INDICATIONS : Shortness of breath. RADIATION DOSE: 15.10 CTDIvol (mGy) ; Combined studies MEDICAL HISTORY : HIV. Hepatitis C. Cardiovascular disease pulmonary embolism SURGICAL HISTORY : None. ENCOUNTER: Initial ACUITY: 1 day PAIN SCALE: Non-responsive LOCATION: Bilateral chest TECHNIQUE: Volumetric scanning of the chest was performed. Using automated exposure control and adjustment of t he mA and/or kV according to patient size, radiation dose was kept as low as reasonably achievable to obtain optimal diagnostic quality images. DICOM format image data is available electronically for r eview and comparison. Follow-up recommendations for detected pulmonary nodules are based at a minimum on nodule size and pa tient risk factors according to Fleischner Society Guidelines. FINDINGS: LUNGS: Bilateral lower lobe airspace consolidation with scattered bilateral pulmonary nodules measuring up t o 1.8 cm. Several nodules in the apices bilaterally are cavitary. PLEURAE: Small bilateral pleural effusions. MEDIASTINUM: The heart and great vessels demonstrate no acute abnormality. There is no mediastinal or hilar lymph adenopathy. AXILLAE: Within normal limits. No lymphadenopathy. MUSCULOSKELETAL: Within normal limits for patient age. MISCELLANEOUS: The visualized upper abdominal organs demonstrate no acute abnormality. CONCLUSION: 1. Small bilateral pleural effusions with dense bilateral lower lobe airspace consolidation. 2. Numerous bilateral inflammatory pulmonary nodules including cavitary nodules in the apices bilater ally. Findings are consistent with septic emboli. Zenon Busch MD on September 16, 2017 at 18:23 Board Certified Radiologist. This report was verified electronically.
--- NOTE | 2017-09-16 18:32 | RADRPT ---
EXAM DATE/TIME: 09/16/2017 18:04 [facility] COMPARISON: CT THORAX W/O CONTRAST, September 16, 2017, 18:04. INDICATIONS : Diffuse abdomen pain today. ORAL CONTRAST: No oral contrast ingested. RADIATION DOSE: 15.10 CTDIvol (mGy) MEDICAL HISTORY : Cardiovascular disease. Hepatitis C. HIV.pulmonary embolism SURGICAL HISTORY : None. ENCOUNTER: Initial ACUITY: 1 day PAIN SCALE: Non-responsive LOCATION: Bilateral abdomen TECHNIQUE: Volumetric scanning of the abdomen and pelvis was performed. Using automated exposure control and ad justment of the mA and/or kV according to patient size, radiation dose was kept as low as reasonably achievable to obtain optimal diagnostic quality images. DICOM format image data is available electro nically for review and comparison. FINDINGS: Examination is limited by paucity of peritoneal fat and artifact from patient's overlapping arms. LIVER: Liver is diffusely enlarged without gross focal mass or intrahepatic ductal dilatation. No definite c alcified gallstones. Small amount of ascites. SPLEEN: Splenomegaly with spleen measuring 19 cm the PANCREAS: Within normal limits. KIDNEYS: Normal in size and shape. There is no mass, stone, or hydronephrosis. ADRENAL GLANDS: Within normal limits. VASCULAR: There is no aortic aneurysm. BOWEL/MESENTERY: Small to moderate amount of stool noted in the distal colon. No dilated loops of small bowel are. ABDOMINAL WALL: Within normal limits. RETROPERITONEUM: There is no lymphadenopathy. BLADDER: Decompressed secondary to Dan catheter. REPRODUCTIVE: Within normal limits. INGUINAL: There is no lymphadenopathy or hernia. MUSCULOSKELETAL: Within normal limits for patient age. CONCLUSION: 1. Limited examination due to paucity of peritoneal fat and patient's overlying arms. 2. Hepatosplenomegaly with small amount of ascites. 3. Small to moderate amount of colonic stool without evidence for bowel obstruction. Zenon Busch MD on September 16, 2017 at 18:26 Board Certified Radiologist. This report was verified electronically.
[2017-09-16] MEDS: DOCUSATE SODIUM 50 MG/SENNA 8.6 MG TAB PO SCH (20:23)
[2017-09-16] MEDS: SODIUM CHLORIDE 0.9% FLUSH 10 ML FLUSH IV FLUSH SCH (20:23)
[2017-09-16] MEDS: RESP: ALBUTEROL 2.5 MG/IPRATROPIUM 0.5 MG NEB (SCH) INH (20:59)
--- NOTE | 2017-09-16 21:59 | HHI.HP ---
[facility] Service Critical Care Medicine Primary Care Physician Unknown Admission Diagnosis Severe sepsis with multiple organ dysfunction. Diagnosis: Travel History International Travel<30 Days: No Contact w/Intl Traveler <30 Da: No Traveled to Known Affected Are: No History of Present Illness Patient evaluated and admitted around 5 PM. H&P entered later. Patient is confused and not able to provide history. History obtained from discussion with Dr. Umaña and review of EMR.. There is no family member present in the emergency department. I attempted to contact her mother but there is no answer. 37-year-old female with past medical history of IV drug use, cocaine abuse, tricuspid valve endocarditis, hepatitis C who was brought to [facility] emergency department via [facility] due to decreased level of consciousness. She has multiple admissions to [facility] related to endocarditis including 07/13-07/18 (group B strep bacteremia), 08/20-08/27 (MSSA bactermia), -09/09 (MSSA bacteremia). On each occasion, she left AMA. Echo from 09/08/17 demonstrated ejection fraction of 50%, mild AI, moderate MR, moderate TR. She has a tricuspid valve vegetation. Her temp is 99.9. She is pancytopenic with white blood cell count of 3.3, platelets 41, hemoglobin 7.1. She has acute kidney injury with creatinine of 2.15. AST is elevated. She received 500 mL of fluid per EVAC and an additional 3 L normal saline bolus in the emergency department. She received vancomycin, Zosyn, calcium. [facility] was consulted for admission. CT scans have been ordered but were pending at the time of admission. Review of Systems ROS Limitations: Clinical Condition Past Family Social History Allergies: Coded Allergies: No Known Allergies (Unverified Allergy, Unknown, 08/13/17) Past Medical History Hepatitis C IV drug use Cocaine abuse Tricuspid valve endocarditis MSSA bacteremia 08/13/17, 08/20/17 Group A strep bacteremia 07/12/17 Past Surgical History Patient denies any past surgical history Reported Medications No prescribed medication Family History Mother is reportedly in good health Social History Records indicate that she that she drinks alcohol, smokes cigarettes, uses IV heroin and cocaine. Physical Exam Vital Signs Vital Signs Date Time Temp Pulse Resp B/P (MAP) Pulse Ox O2 Delivery O2 Flow Rate FiO2 09/16/17 21:53 90.7 73 10 87/50 100 5/20/18 21:01 100 Nasal Cannula 2.00 09/16/17 20:20 68 10 77/52 100 09/16/17 20:02 76 26 79/49 100 09/16/17 18:35 09/16/17 17:02 84 107/49 (68) 09/16/17 15:12 16 99 Nasal Cannula 3.00 09/16/17 15:12 99 Nasal Cannula 3.00 09/16/17 15:01 99.2 70 12 98/53 (68) 97 Physical Exam GENERAL: Under nourished ill-appearing disheveled female who is sitting up in ED stretcher. SKIN: Warm and dry. There are track christina present on her bilateral arms and anterior shins. There is a 3 cm wound over the medial aspect of her right osorio where there is an abscess that has opened up and pus was expressed when pressure applied. There is a 3 cm wound over the medial aspect of left lower leg with some minimal exudate expressed. HEAD: Atraumatic. Normocephalic. EYES: Pupils equal and round, 2 mm react. No scleral icterus. Bilateral conjunctival injection. ENT: No nasal bleeding or discharge. Mucous membranes dry NECK: Trachea midline. CARDIOVASCULAR: Regular rate and rhythm. 2 out of 6 systolic murmur left lower sternal border RESPIRATORY: Mildly tachypneic but no accessory muscle use. Sounds are diminished bibasilar GASTROINTESTINAL: Abdomen soft, she grimaces to palpation throughout abdomen, nondistended, hypoactive bowel sounds. +palpable hepatomegaly. MUSCULOSKELETAL: Extremities without clubbing, cyanosis. Edema bilateral hands and trace bipedal edema. NEUROLOGICAL: Eyes open to voice and gentle stimulation. She moans intermittently, when asked questions she states "I don't know i am not thinking clearly" . No obvious cranial nerve deficits. Motor grossly within normal limits. Laboratory Laboratory Tests Test 09/16/17 15:29 09/16/17 16:03 09/16/17 16:45 09/16/17 17:35 White Blood Count 3.3 Red Blood Count 2.61 Hemoglobin 7.1 Hematocrit 21.4 Mean Corpuscular Volume 82.0 Mean Corpuscular Hemoglobin 27.3 Mean Corpuscular Hemoglobin Concent 33.3 Red Cell Distribution Width 17.7 Platelet Count 41 Mean Platelet Volume 10.6 Neutrophils (%) (Auto) 87.3 Lymphocytes (%) (Auto) 8.7 Monocytes (%) (Auto) 2.9 Eosinophils (%) (Auto) 0.9 Basophils (%) (Auto) 0.2 Neutrophils # (Auto) 2.9 Lymphocytes # (Auto) 0.3 Monocytes # (Auto) 0.1 Eosinophils # (Auto) 0.0 Basophils # (Auto) 0.0 CBC Comment AUTO DIFF Differential Comment AUTO DIFF CONFIRMED Platelet Estimate LOW Platelet Morphology Comment ENLARGED Ovalocytes 1+ Prothrombin Time 13.7 Prothromb Time International Ratio 1.4 Activated Partial Thromboplast Time 30.4 Blood Urea Nitrogen 43 Creatinine 2.15 Random Glucose 83 Total Protein 5.9 Albumin 1.4 Calcium Level 7.0 Phosphorus Level 4.0 Magnesium Level 1.5 Alkaline Phosphatase 101 Aspartate Amino Transf (AST/SGOT) 60 Alanine Aminotransferase (ALT/SGPT) 15 Total Bilirubin 1.1 Sodium Level 136 Potassium Level 3.2 Chloride Level 101 Carbon Dioxide Level 20.6 Anion Gap 14 Estimat Glomerular Filtration Rate 26 Lactic Acid Level 0.8 Protein Corrected Calcium 7.6 Total Creatine Kinase 24 Troponin I 0.38 Lipase 166 Human Chorionic Gonadotropin, Quant LESS THAN 1 Salicylates Level 3.3 Acetaminophen Level LESS THAN 2.0 Urine Color RED Urine Turbidity CLOUDY Urine pH 5.5 Urine Specific [place] 1.018 Urine Protein 100 Urine Glucose (UA) NEG Urine Ketones TRACE Urine Occult Blood LARGE Urine Nitrite NEG Urine Bilirubin NEG Urine Urobilinogen 8.0 Urine Leukocyte Esterase NEG Urine RBC Urine WBC 47 Urine Squamous Epithelial Cells 5 Urine Transitional Epithelial Cells 1 Urine Amorphous Sediment OCC Urine Bacteria FEW Urine Mucus FEW Microscopic Urinalysis Comment CATH-CULTURE IND Urine Opiates Screen POS Urine Barbiturates Screen NEG Urine Amphetamines Screen NEG Urine Benzodiazepines Screen POS Urine Cocaine Screen POS Urine Cannabinoids Screen NEG Blood Gas Puncture Site RT RADIAL Blood Gas Patient Temperature 98.6 Blood Gas HCO3 19 Blood Gas Base Excess -5.2 Blood Gas Oxygen Saturation 95 Arterial Blood pH 7.40 Arterial Blood Partial Pressure CO2 31 Arterial Blood Partial Pressure O2 100 Arterial Blood Oxygen Content 9.1 Arterial Blood Carboxyhemoglobin 2.0 Arterial Blood Methemoglobin 0.7 Blood Gas Hemoglobin 6.7 Oxygen Delivery Device NASAL CANNULA Blood Gas Liter Flow 3 Ammonia LESS THAN 10 Test 09/16/17 18:32 Date/Time Source Procedure Growth Status 09/16/17 15:30 Blood Peripheral Aerobic Blood Culture Pending Received 09/16/17 15:30 Blood Peripheral Anaerobic Blood Culture Pending Received 09/16/17 16:03 Urine Catheterized Urine Urine Culture Pending Received Result Diagram: 09/16/17 1529 09/16/17 1529 Septic Shock Reassessment Septic shock perfusion: reassessment completed Caprini VTE Risk Assessment Caprini VTE Risk Assessment: Mod/High Risk (score >= 2) VTE Pharm Contraindication: Thrombocytopenia(<50) Caprini Risk Assessment Model Point Value = 1 Point Value = 2 Point Value = 3 Point Value = 5 Age 41-60 Minor surgery BMI > 25 kg/m2 Swollen legs Varicose veins or History of unexplained or recurrent spontaneous Oral contraceptives or hormone replacement Sepsis (< 1 month) Serious lung disease, including pneumonia (< 1 month) Abnormal pulmonary function Acute myocardial infarction Congestive heart failure (< 1 month) History of inflammatory bowel disease Medical patient at bed rest Age 61-74 Arthroscopic surgery Major open surgery (> 45 min) Laparoscopic surgery (> 45 min) Malignancy Confined to bed (> 72 hours) Immobilizing plaster cast Central venous access Age >= 75 History of VTE Family history of VTE Factor V Leiden Prothrombin 43486A Lupus anticoagulant Anticardiolipin antibodies Elevated serum homocysteine Heparin-induced thrombocytopenia Other congenital or acquired thrombophilia Stroke (< 1 month) Elective arthroplasty Hip, pelvis, or leg fracture Acute spinal cord injury (< 1 month) Prophylaxis Regimen Total Risk Factor Score Risk Level Prophylaxis Regimen 0-1 Low Early ambulation 2 Moderate Order ONE of the following: *Sequential Compression Device (SCD) *Heparin 5000 units SQ BID 3-4 Higher Order ONE of the following medications: *Heparin 5000 units SQ TID *Enoxaparin/Lovenox 40 mg SQ daily (WT < 150 kg, CrCl > 30 mL/min) *Enoxaparin/Lovenox 30 mg SQ daily (WT < 150 kg, CrCl > 10-29 mL/min) *Enoxaparin/Lovenox 30 mg SQ BID (WT < 150 kg, CrCl > 30 mL/min) AND/OR *Sequential Compression Device (SCD) 5 or more Highest Order ONE of the following medications: *Heparin 5000 units SQ TID (Preferred with Epidurals) *Enoxaparin/Lovenox 40 mg SQ daily (WT < 150 kg, CrCl > 30 mL/min) *Enoxaparin/Lovenox 30 mg SQ daily (WT < 150 kg, CrCl > 10-29 mL/min) *Enoxaparin/Lovenox 30 mg SQ BID (WT < 150 kg, CrCl > 30 mL/min) AND *Sequential Compression Device (SCD) Assessment and Plan Assessment and Plan NEURO: Acute encephalopathy, secondary to sepsis IV drug use Opioid dependent Benzodiazepine abuse Cocaine abuse Obtained CT brain - no acute abnormality. Left maxillary and sphenoid sinus disease Avoid sedatives RESP: Septic pulmonary emboli Nasal cannula wean as tolerated ABG demonstrates no hypercapnia. Will monitor for airway protection CV: Tricuspid valve vegetation with severe TR Endocarditis Severe sepsis with multiorgan failure Has received 3.5 L of fluids in the emergency department. She is normotensive with blood pressure 107/49. Heart rate is in the 70s. We will continue maintenance IV fluids with LR 125 milliliters per nanci Lactic acid normal. Currently does not require vasopressors, will monitor. GI: Abdominal pain Hepatosplenomegaly Moderate protein energy malnutrition NPO until mental status improves. CT abdomen and pelvis - Hepatosplenomegaly with small ascites. Moderate amount of stool in the colon without evidence of bowel obstruction. FEN/RENAL: Acute kidney injury Hypokalemia KCl 20 MeQ IV Insert Dan. Monitor and intake and output hourly CPK is 24 ID: Severe sepsis Tricuspid valve endocarditis with medical nonadherence and ongoing IV drug use Right lower leg abscess - spontaneously draining and pus expressed in ED. Follow-up blood and urine culture Continue Zosyn and vancomycin. Zosyn has been adjusted for Calc creatinine clearance of 24. Has history of MSSAgroup B strep in the past with ongoing drug use HEME: Pancytopenia DIC Transfusion of 2 units packed red cells per ED. No indication for platelets or FFP as she does not appear to be actively bleeding. Follow-up CBC. ENDO: Euglycemic PROPH: SCDs for DVT prophylaxis. We will hold off on pharmacologic DVT prophylaxis due to thrombocytopenia. Famotidine for stress ulcer prophylaxis ACCESS: 2 large-bore peripheral IVs are in place. She is currently not requiring vasopressors. We will place CVL if vasopressors are indicated Patient has opioid dependence and ongoing IV drug use. Her opioid addiction has contributed to medical nonadherence and therefore she has had recurrent episodes of bacteremia and now 1.4 x0.5 cm mobile vegetation on tricuspid valve resulting in moderate to severe TR. Recently she has had multiple admissions but has left AMA without adherence to medical management. She is now pancytopenic with multiorgan failure. While acute treatment may result in improvement in [place], her prognosis appears poor. Patient is critically ill with severe sepsis and multiorgan failure. She has altered mental status and at high risk for loss of airway protection. She is at high risk for decompensation and septic shock. She requires close monitoring in ICU. Critical care time in excess of 45 minutes have been spent examining patient, reviewing medical records and laboratory and imaging data, discussion with Dr. Umaña regarding management. Tanya Mcnulty MD September 16, 2017 21:59
[2017-09-16] MEDS ORDERED: POTASSIUM CHLOR 20 MEQ PREMIX 100 ML IV ONE (22:30)
--- NOTE | 2017-09-16 22:33 | EKG ---
Date Performed: 09/16/2017 Time Performed: 22:00:56 PTAGE: 37 years EKG: Sinus rhythm NONSPECIFIC INTRAVENTRICULAR CONDUCTION DELAY NONSPECIFIC ST CHANGES ABNORMAL ECG PREVIOUS TRACING : 08/13/2017 12.19 No significant change from previous tracing noted. DOCTOR: Gary Berry Interpretating Date/Time 09/16/2017 22:32:47
[2017-09-16] MEDS: FAMOTIDINE 20 MG/2 ML VIAL IV PUSH SCH (22:45)
[2017-09-16] MEDS: PIPERACIL-TAZO 3.375 GM PREMIX 50 ML IV SCH (22:45)
[2017-09-17] VITALS (54 sets, daily range): BP systolic 78–125; BP diastolic 46–75; PULSE 68–92; RESP 0–74; TEMP 91.4–97.7; O2SAT 95–100
[2017-09-17] MEDS: LACTATED RINGER'S 1000 ML INJ 1,000 ML IV SCH (00:59)
[2017-09-17] MEDS: SODIUM CHLOR 0.9% 1000 ML INJ 1,000 ML IV SCH ×2 (00:59→01:19)
[2017-09-17] MEDS: CHLORHEXIDINE GLUCONATE 2 % 1 PACK (2 CLOTHS) TOP SCH (00:59)
[2017-09-17] MEDS ORDERED: TERBUTALINE INJ 1 MG/ML AMP SQ PRN (01:15)
[2017-09-17] MEDS: PHENYLEPHRINE INJ 40 MG in DEXTROSE 5% IN WATE 500 ML INJ 496 ML IV PRN ×4 (02:11→16:36)
[2017-09-17] MEDS: RESP: ALBUTEROL 2.5 MG/IPRATROPIUM 0.5 MG NEB (SCH) INH ×3 (03:46→20:26)
[2017-09-17] MEDS: VANCOMYCIN INJ 750 MG in SODIUM CHLOR 0.9% 250 ML INJ 250 ML IV SCH ×2 (04:11→16:33)
[2017-09-17] MEDS: PIPERACIL-TAZO 3.375 GM PREMIX 50 ML IV SCH ×4 (04:11→20:30)
[2017-09-17 08:07] LABS: INTERNATIONAL NORMALIZED RATIO 1.3 RATIO; PROTHROMBIN TIME - PATIENT 13.4 SEC (9.8-11.6)
[2017-09-17 08:10] LABS: HEMATOCRIT 31.3 % (35.0-46.0); HEMOGLOBIN 10.5 GM/DL (11.6-15.3); MEAN CORPUSCULAR HEMOGLOBIN 27.5 PG (27.0-34.0); MEAN CORPUSCULAR HGB CONC 33.5 % (32.0-36.0); MEAN PLATELET VOLUME 10.1 FL (7.0-11.0); PLATELET COUNT 29 TH/MM3 (150-450); RED BLOOD COUNT 3.82 MIL/MM3 (4.00-5.30); RED CELL DISTRIBUTION WIDTH 18.4 % (11.6-17.2); WHITE BLOOD COUNT 4.3 TH/MM3 (4.0-11.0)
[2017-09-17 08:33] LABS: ALBUMIN 1.2 GM/DL (3.4-5.0); BICARBONATE 15.9 MEQ/L (21.0-32.0); CALCIUM-PROTEIN CORRECTED 7.9 MG/DL (8.5-10.1); CREATININE 2.18 MG/DL (0.50-1.00); MAGNESIUM 1.6 MG/DL (1.5-2.5); PHOSPHORUS 4.2 MG/DL (2.5-4.9); TOTAL BILIRUBIN ADULT 1.4 MG/DL (0.2-1.0); TOTAL PROTEIN 5.4 GM/DL (6.4-8.2)
[2017-09-17 08:55] LABS: ACANTHOCYTES OCC (NORMAL); BANDS 28 % (0-6); LYMPHOCYTES 3 % (9-44); MONOCYTES 1 % (0-8); NEUTROPHIL # MANUAL DIFF 4.1 TH/MM3 (1.8-7.7); OVALOCYTES 1+ (NORMAL); POLYS (SEG NEUTROPHILS) 67 % (16-70); TOXIC VACUOLATION PRESENT (NONE SEEN)
[2017-09-17 08:56] LABS: BURR CELLS 1+ (NORMAL); TOXIC GRANULATION 1+ (NORMAL)
[2017-09-17] MEDS: DOCUSATE SODIUM 50 MG/SENNA 8.6 MG TAB PO SCH ×2 (09:00→20:30)
[2017-09-17] MEDS: SODIUM CHLORIDE 0.9% FLUSH 10 ML FLUSH IV FLUSH SCH ×2 (09:00→20:31)
[2017-09-17] MEDS: METHADONE HCL 10 MG TAB PO SCH (09:32)
[2017-09-17] MEDS: FAMOTIDINE 20 MG/2 ML VIAL IV PUSH SCH ×2 (09:32→20:31)
[2017-09-17] MEDS: oxyCODONE/ACETAMINOPHEN 10 MG/325 MG TAB PO PRN ×4 (09:32→23:00)
--- NOTE | 2017-09-17 10:03 | PD.CONS ---
History of Present Illness Service Infectious disease Consult Requested By Dr. Mcnulty Reason for Consult Evaluate patient with sepsis, previous endocarditis Primary Care Physician Unknown Diagnoses: History of Present Illness Patient seen and examined. Records reviewed. Patient is a poor historian Patient is a 37-year-old female, with known history of IV drug use, cocaine abuse, previous diagnosis of tricuspid valve endocarditis with group A strep last June, did not get treated, signed out AMA at that time, brought into the hospital for evaluation of decreased level of consciousness. Patient also had another admission in July, and at that time her blood cultures grew methicillin sensitive staph aureus. She signed out AGAINST MEDICAL ADVICE again at that time. When she came in this time, her CBC showed pancytopenia. CT of the chest showed evidence of multiple pulmonary septic emboli. 2 blood cultures done are now showing staph aureus. She was also hypotensive, and also had an elevated creatinine. Her urine output has been low. CT of the head did not show any significant abnormality. CT of the abdomen and pelvis showed splenomegaly. Patient currently still lethargic, and moaning. She is complaining of pain throughout her whole body. She is on Celso-Synephrine. Infectious disease consultation has been requested to evaluate the patient. Review of Systems ROS Limitations: Altered Mental Status, Poor Historian Past Family Social History Allergies: Coded Allergies: No Known Allergies (Unverified Allergy, Unknown, 08/13/17) Past Medical History Hepatitis C Tricuspid valve endocarditis Group A strep sepsis MSSA sepsis Known active IV drug use Past Surgical History None reported Active Ordered Medications Current Medications Medications (Trade) Dose Ordered Sig/Amy Route Start Time Stop Time Status Last Admin (NS Flush) 2 ml UNSCH PRN IV FLUSH 09/16/17 17:00 (NS Flush) 2 ml BID IV FLUSH 09/16/17 21:00 09/16/17 20:23 (Pepcid Inj) 10 mg Q12HR IV PUSH 09/16/17 21:00 09/17/17 09:32 (Duoneb Neb) 1 ampule Q6HR NEB INH 09/16/17 22:00 09/17/17 03:46 (Albuterol Neb) 2.5 mg Q2HR NEB PRN INH 09/16/17 17:00 ([facility] [place] Nursing Information) 1 Q361D XX 09/16/17 17:00 09/16/17 20:22 (Chlorhexidine 2% Cloth) 3 pack Taper DAILY@04 TOP 09/17/17 04:00 09/13/18 03:59 09/17/17 00:59 (Chlorhexidine 2% Cloth) 3 pack UNSCH PRN TOP 09/16/17 17:00 (Paula-Colace) 1 tab BID PO 09/16/17 21:00 (Milk Of Magnesia Liq) 30 ml Q12H PRN PO 09/16/17 17:00 (Senokot) 17.2 mg Q12H PRN PO 09/16/17 17:00 (Dulcolax Supp) 10 mg DAILY PRN RECTAL 09/16/17 17:00 (Lactulose Liq) 30 ml DAILY PRN PO 09/16/17 17:00 Lactated Ringer's 1,000 ml @ 125 mls/hr Q8H IV 09/16/17 17:00 09/17/17 00:59 (Phenergan Inj) 25 mg Q6H PRN IM 09/16/17 17:00 Pharmacy Profile Note 0 ml @ 0 mls/hr UNSCH OTHER 09/16/17 17:30 Piperacillin Sod/ Tazobactam Sod 50 ml @ 100 mls/hr Q6H IV 09/16/17 22:00 09/17/17 09:32 Vancomycin HCl 750 mg/Sodium Chloride 257.5 ml @ 250 mls/hr Q12H IV 09/17/17 04:00 09/17/17 04:11 ([facility] [place] [facility] Ordered Lab Info) SPECIFIC LAB TO BE ... ONCE ONCE .XX 09/18/17 03:45 09/18/17 03:46 Phenylephrine HCl 40 mg/Dextrose 500 ml @ 30 mls/hr TITRATE PRN IV 09/17/17 01:15 09/17/17 02:11 (Brethine Inj) 1 mg UNSCH PRN SQ 09/17/17 01:15 (Percocet 10-325 Mg) 1 tab Q4H PRN PO 09/17/17 08:30 09/17/17 09:32 (Dolophine) 10 mg DAILY PO 09/17/17 09:00 09/17/17 09:32 Family History Noncontributory to current ID problem Social History Lives with her mom 1 pack per day of cigarettes No alcohol abuse Known IV drug use, and cocaine use, and heroin Physical Exam Vital Signs Vital Signs Date Time Temp Pulse Resp B/P (MAP) Pulse Ox O2 Delivery O2 Flow Rate FiO2 09/17/17 08:27 100 Nasal Cannula 2.00 09/17/17 06:00 91 09/17/17 04:30 94.1 79 29 92/53 (66) 97 09/17/17 04:15 93.7 83 74 92/55 (67) 98 09/17/17 04:00 93.6 71 25 90/54 (66) 99 09/17/17 04:00 82 09/17/17 03:45 93.4 68 29 84/54 (64) 98 09/17/17 03:30 93.2 69 28 87/53 (64) 97 09/17/17 03:20 69 83/53 09/17/17 03:15 93.0 71 28 83/53 (63) 98 09/17/17 03:00 92.8 76 28 86/52 (63) 97 09/17/17 02:45 92.8 75 29 88/56 (67) 98 09/17/17 02:30 92.7 74 26 85/51 (62) 97 09/17/17 02:15 92.3 74 25 82/50 (61) 98 09/17/17 02:11 75 81/52 09/17/17 02:00 71 09/17/17 02:00 92.3 74 0 81/52 (62) 99 09/17/17 01:45 92.1 78 0 81/47 (58) 98 09/17/17 01:30 92.1 78 24 79/46 (57) 99 09/17/17 01:15 92.1 78 18 78/46 (57) 98 09/17/17 01:00 92.1 80 25 80/46 (57) 98 09/17/17 00:45 92.1 79 26 79/46 (57) 98 09/17/17 00:30 92.1 78 22 81/48 (59) 98 09/17/17 00:15 91.8 78 25 82/51 (61) 98 09/17/17 00:00 91.4 72 19 84/50 (61) 100 09/17/17 00:00 72 5/20/18 23:45 91.2 72 20 79/49 (59) 99 5/20/18 23:30 91.0 72 82/53 (63) 100 5/20/18 23:26 91.0 75 15 81/48 99 5/20/18 23:15 91.0 71 21 81/48 (59) 100 5/20/18 23:00 91.0 75 25 79/47 (58) 99 5/20/18 22:45 91.0 74 23 80/47 (58) 99 5/20/18 22:30 90.9 73 16 87/52 (64) 99 5/20/18 22:15 90.9 74 12 79/48 (58) 100 5/20/18 22:01 90.7 71 27 81/51 (61) 100 5/20/18 22:00 90.7 71 25 79/51 (60) 100 5/20/18 22:00 71 5/20/18 21:53 90.7 73 10 87/50 100 5/20/18 21:52 90.7 73 21 87/50 (62) 100 5/20/18 21:45 90.5 72 21 99 5/20/18 21:30 89.4 72 25 81/52 (62) 100 5/20/18 21:15 75 35 84/51 (62) 100 5/20/18 21:01 100 Nasal Cannula 2.00 520/18 21:00 71 25 80/50 (60) 100 5/20/18 20:45 68 13 79/52 (61) 100 520/18 20:30 68 15 78/51 (60) 100 520/18 20:20 68 10 77/52 100 5/20/18 20:15 69 25 77/52 (60) 100 5/20/18 20:02 76 26 79/49 100 5/20/18 20:00 75 5/20/18 20:00 75 24 78/48 (58) 99 5/20/18 19:45 77 24 81/52 (62) 99 5/20/18 19:30 79 25 85/51 (62) 99 5/20/18 19:15 79 28 87/56 (66) 99 5/20/18 19:00 79 28 86/56 (66) 99 5/20/18 18:35 5/20/18 17:02 84 107/49 (68) 09/16/17 15:12 16 99 Nasal Cannula 3.00 09/16/17 15:12 99 Nasal Cannula 3.00 09/16/17 15:01 99.2 70 12 98/53 (68) 97 Physical Exam GENERAL: Patient is a well-nourished, well-developed female, lethargic, constantly moaning, slightly tachypneic at rest. SKIN: Warm and dry. No generalized rash, no ecchymoses and no evidence of embolic lesions. HEAD: Atraumatic. Normocephalic. No temporal wasting, or tenderness. EYES: [place] conjunctiva. No petechia or hemorrhage. Pupils equal, round and reactive to light. Extraocular movements full and intact. No scleral icterus. No injection or drainage. EARS, NOSE AND THROAT: Nose without bleeding or purulent nasal discharge. No sinus tenderness. Very dry oral mucosa. NECK: Trachea midline. Supple, no meningeal signs CARDIOVASCULAR: Regular rate and rhythm. No murmurs, rubs or gallops heard RESPIRATORY: Clear to auscultation. Breath sounds equal bilaterally. No rales , wheezing or rhonchi. Decreased breath sounds at the bases ABDOMEN: Distended, with diffuse abdominal tenderness, tympanitic on percussion. Bowel sounds present and normoactive. : Dan cath in place EXTREMITIES: No clubbing, cyanosis. Has bilateral pitting pedal edema. Pain with any touching or movement of both lower extremity. Did not appreciate any erythema in any parts of her lower extremity. Well perfused and warm. NEUROLOGICAL: Lethargic, but does follow commands. Cranial nerves grossly intact. Motor not evaluated completely due to pain with any touching or movement of all her extremities PSYCHIATRIC: Lethargic, unable to fully assess LINE: No evidence of infection Laboratory Laboratory Tests Test 09/16/17 15:29 09/16/17 16:03 09/16/17 16:45 09/16/17 17:35 White Blood Count 3.3 Red Blood Count 2.61 Hemoglobin 7.1 Hematocrit 21.4 Mean Corpuscular Volume 82.0 Mean Corpuscular Hemoglobin 27.3 Mean Corpuscular Hemoglobin Concent 33.3 Red Cell Distribution Width 17.7 Platelet Count 41 Mean Platelet Volume 10.6 Neutrophils (%) (Auto) 87.3 Lymphocytes (%) (Auto) 8.7 Monocytes (%) (Auto) 2.9 Eosinophils (%) (Auto) 0.9 Basophils (%) (Auto) 0.2 Neutrophils # (Auto) 2.9 Lymphocytes # (Auto) 0.3 Monocytes # (Auto) 0.1 Eosinophils # (Auto) 0.0 Basophils # (Auto) 0.0 CBC Comment AUTO DIFF Differential Comment AUTO DIFF CONFIRMED Platelet Estimate LOW Platelet Morphology Comment ENLARGED Ovalocytes 1+ Prothrombin Time 13.7 Prothromb Time International Ratio 1.4 Activated Partial Thromboplast Time 30.4 Blood Urea Nitrogen 43 Creatinine 2.15 Random Glucose 83 Total Protein 5.9 Albumin 1.4 Calcium Level 7.0 Phosphorus Level 4.0 Magnesium Level 1.5 Alkaline Phosphatase 101 Aspartate Amino Transf (AST/SGOT) 60 Alanine Aminotransferase (ALT/SGPT) 15 Total Bilirubin 1.1 Sodium Level 136 Potassium Level 3.2 Chloride Level 101 Carbon Dioxide Level 20.6 Anion Gap 14 Estimat Glomerular Filtration Rate 26 Lactic Acid Level 0.8 Protein Corrected Calcium 7.6 Total Creatine Kinase 24 Troponin I 0.38 Lipase 166 Human Chorionic Gonadotropin, Quant LESS THAN 1 Salicylates Level 3.3 Acetaminophen Level LESS THAN 2.0 Urine Color RED Urine Turbidity CLOUDY Urine pH 5.5 Urine Specific [place] 1.018 Urine Protein 100 Urine Glucose (UA) NEG Urine Ketones TRACE Urine Occult Blood LARGE Urine Nitrite NEG Urine Bilirubin NEG Urine Urobilinogen 8.0 Urine Leukocyte Esterase NEG Urine RBC Urine WBC 47 Urine Squamous Epithelial Cells 5 Urine Transitional Epithelial Cells 1 Urine Amorphous Sediment OCC Urine Bacteria FEW Urine Mucus FEW Microscopic Urinalysis Comment CATH-CULTURE IND Urine Opiates Screen POS Urine Barbiturates Screen NEG Urine Amphetamines Screen NEG Urine Benzodiazepines Screen POS Urine Cocaine Screen POS Urine Cannabinoids Screen NEG Blood Gas Puncture Site RT RADIAL Blood Gas Patient Temperature 98.6 Blood Gas HCO3 19 Blood Gas Base Excess -5.2 Blood Gas Oxygen Saturation 95 Arterial Blood pH 7.40 Arterial Blood Partial Pressure CO2 31 Arterial Blood Partial Pressure O2 100 Arterial Blood Oxygen Content 9.1 Arterial Blood Carboxyhemoglobin 2.0 Arterial Blood Methemoglobin 0.7 Blood Gas Hemoglobin 6.7 Oxygen Delivery Device NASAL CANNULA Blood Gas Liter Flow 3 Ammonia LESS THAN 10 Test 09/16/17 18:32 09/17/17 01:38 09/17/17 07:30 Nasal Screen MRSA (PCR) MRSA DETECTED Troponin I 0.54 0.67 White Blood Count 4.3 Red Blood Count 3.82 Hemoglobin 10.5 Hematocrit 31.3 Mean Corpuscular Volume 82.0 Mean Corpuscular Hemoglobin 27.5 Mean Corpuscular Hemoglobin Concent 33.5 Red Cell Distribution Width 18.4 Platelet Count 29 Mean Platelet Volume 10.1 CBC Comment AUTO DIFF Differential Total Cells Counted 100 Neutrophils % (Manual) 67 Band Neutrophils % 28 Lymphocytes % 3 Monocytes % 1 Eosinophils % 1 Neutrophils # (Manual) 4.1 Differential Comment FINAL DIFF MANUAL Toxic Granulation 1+ Toxic Vacuolation PRESENT Platelet Estimate LOW Platelet Morphology Comment NORMAL Ovalocytes 1+ Audrey Cells 1+ Acanthocytes OCC Prothrombin Time 13.4 Prothromb Time International Ratio 1.3 Blood Urea Nitrogen 48 Creatinine 2.18 Random Glucose 106 Total Protein 5.4 Albumin 1.2 Calcium Level 7.0 Phosphorus Level 4.2 Magnesium Level 1.6 Alkaline Phosphatase 91 Aspartate Amino Transf (AST/SGOT) 47 Alanine Aminotransferase (ALT/SGPT) 13 Total Bilirubin 1.4 Sodium Level 141 Potassium Level 3.1 Chloride Level 111 Carbon Dioxide Level 15.9 Anion Gap 14 Estimat Glomerular Filtration Rate 26 Lactic Acid Level 1.4 Protein Corrected Calcium 7.9 Date/Time Source Procedure Growth Status 09/16/17 15:30 Blood Peripheral Aerobic Blood Culture - Preliminary Gram Positive Cocci Resulted 09/16/17 15:30 Anaerobic Blood Culture - Preliminary Gram Positive Cocci Resulted 09/16/17 16:03 Urine Catheterized Urine Urine Culture Pending Received Result Diagram: 09/17/17 0730 09/17/17 0730 Imaging RADIOLOGY STUDIES/FILMS REVIEWED Last Impressions Chest X-Ray 09/16/17 1504 Signed Impressions: Service Date/Time: Saturday, September 16, 2017 15:28 - CONCLUSION: 1. Patchy bilateral lower lobe airspace disease, more prominent on the right. Findings are concerning for multilobar pneumonia or aspiration. Zenon Busch MD Head CT 09/16/17 0000 Signed Impressions: Service Date/Time: Saturday, September 16, 2017 17:56 - CONCLUSION: 1. No acute intracranial abnormality. 2. Left maxillary and sphenoid sinus mucosal disease. Zenon Busch MD Chest CT 09/16/17 0000 Signed Impressions: Service Date/Time: Saturday, September 16, 2017 18:04 - CONCLUSION: 1. Small bilateral pleural effusions with dense bilateral lower lobe airspace consolidation. 2. Numerous bilateral inflammatory pulmonary nodules including cavitary nodules in the apices bilaterally. Findings are consistent with septic emboli. Zenon Busch MD Abdomen/Pelvis CT 09/16/17 0000 Signed Impressions: Service Date/Time: Saturday, September 16, 2017 18:04 - CONCLUSION: 1. Limited examination due to paucity of peritoneal fat and patient's overlying arms. 2. Hepatosplenomegaly with small amount of ascites. 3. Small to moderate amount of colonic stool without evidence for bowel obstruction. Zenon Busch MD Assessment and Plan Assessment and Plan IMPRESSION Sepsis with shock, due to endocarditis - previously had GAS, then MSSA - now with GPC, ?MSSAm vs new strain Has pulmonary septic emboli Has UTI Renal insufficiency Pancytopenia RECOMMENDATION Continue current empiric antibiotics, on Vanco and Zosyn Follow cultures Repeat echo Check DIC profile Follow CBC Monitor progress She will need a course of IV antibiotics for her endocarditis I will follow along with you Thank you for this consultation Milana Harp MD September 17, 2017 10:03
[2017-09-17] MEDS ORDERED: POTASSIUM CHLOR 40 MEQ PREMIX 100 ML IV ONE (12:45)
--- NOTE | 2017-09-17 12:56 | HHI.CCPN ---
Subjective Remarks/Hospital Course 09/16: 37-year-old female with past medical history of IV drug use, cocaine abuse , tricuspid valve endocarditis, hepatitis C who was brought to [facility] emergency department via [facility] due to decreased level of consciousness. She has multiple admissions to [facility] related to endocarditis including 07/13-07/18 (group B strep bacteremia), 08/20-08/27 (MSSA bactermia), -09/09 (MSSA bacteremia). On each occasion, she left AMA. Echo from 09/08/17 demonstrated ejection fraction of 50%, mild AI, moderate MR, moderate TR. She has a tricuspid valve vegetation. Her temp is 99.9. She is pancytopenic with white blood cell count of 3.3, platelets 41, hemoglobin 7.1. She has acute kidney injury with creatinine of 2.15. AST is elevated. She received 500 mL of fluid per EVAC and an additional 3 L normal saline bolus in the emergency department. She received vancomycin, Zosyn, calcium. [facility] was consulted for admission. CT scans have been ordered but were pending at the time of admission. 09/17: Resting in bed. Complaining of generalized pain Objective Vital Signs Date Time Temp Pulse Resp B/P (MAP) Pulse Ox O2 Delivery O2 Flow Rate FiO2 09/17/17 10:30 98.1 92 27 100/56 (71) 97 09/17/17 08:27 Nasal Cannula 2.00 Intake and Output 09/17/17 09/17/17 09/18/17 08:00 16:00 00:00 Intake Total 3855.5 ml Output Total 50 ml Balance 3805.5 ml Result Diagram: 09/17/17 0730 09/17/17 0730 Other Results Laboratory Tests Test 09/16/17 16:45 Blood Gas Puncture Site RT RADIAL Blood Gas Patient Temperature 98.6 Blood Gas HCO3 19 mmol/L (22-26) Blood Gas Base Excess -5.2 mmol/L (-2-2) Blood Gas Oxygen Saturation 95 % (90-100) Arterial Blood pH 7.40 (7.380-7.420) Arterial Blood Partial Pressure CO2 31 mmHg (38-42) Arterial Blood Partial Pressure O2 100 mmHG (61-120) Arterial Blood Oxygen Content 9.1 Vol % (12.0-20.0) Arterial Blood Carboxyhemoglobin 2.0 % (0-4) Arterial Blood Methemoglobin 0.7 % (0-2) Blood Gas Hemoglobin 6.7 G/DL (12.0-16.0) Oxygen Delivery Device NASAL CANNULA Blood Gas Liter Flow 3 L/M Objective Remarks GENERAL: Under nourished ill-appearing disheveled female who is sitting up in ED stretcher. SKIN: Warm and dry. There are track christina present on her bilateral arms and anterior shins. There is a 3 cm wound over the medial aspect of her right osorio where there is an abscess that has opened up and pus was expressed when pressure applied. There is a 3 cm wound over the medial aspect of left lower leg with some minimal exudate expressed. HEAD: Atraumatic. Normocephalic. EYES: Pupils equal and round, 2 mm react. No scleral icterus. Bilateral conjunctival injection. ENT: No nasal bleeding or discharge. Mucous membranes dry NECK: Trachea midline. CARDIOVASCULAR: Regular rate and rhythm. 2 out of 6 systolic murmur left lower sternal border RESPIRATORY: Mildly tachypneic but no accessory muscle use. Sounds are diminished bibasilar GASTROINTESTINAL: Abdomen soft, she grimaces to palpation throughout abdomen, nondistended, hypoactive bowel sounds. +palpable hepatomegaly. MUSCULOSKELETAL: Extremities without clubbing, cyanosis. Edema bilateral hands and trace bipedal edema. NEUROLOGICAL: Awake and alert. Moaning and complaining of pain. Knows it is 2018 and knows she is at [facility] No obvious cranial nerve deficits. Motor grossly within normal limits. A/P Assessment and Plan NEURO: Acute encephalopathy, secondary to sepsis IV drug use Opioid dependent Benzodiazepine abuse Cocaine abuse Obtained CT brain - no acute abnormality. Left maxillary and sphenoid sinus disease Avoid sedatives. Added methadone 10 mg daily and Percocet 10/325 mg p.o. every 4 hourly as needed for pain and to avoid withdrawal RESP: Septic pulmonary emboli Nasal cannula wean as tolerated ABG demonstrates no hypercapnia. Will monitor for airway protection CV: Tricuspid valve vegetation with severe TR Endocarditis Severe sepsis with multiorgan failure Has received 3.5 L of fluids in the emergency department. Changed IV fluids to bicarb drip Lactic acid normal. Currently does not require vasopressors, will monitor. GI: Abdominal pain Hepatosplenomegaly Moderate protein energy malnutrition P.o. diet as tolerated CT abdomen and pelvis - Hepatosplenomegaly with small ascites. Moderate amount of stool in the colon without evidence of bowel obstruction. FEN/RENAL: Acute kidney injury Hypokalemia KCl 20 MeQ IV Insert Dan. Monitor and intake and output hourly CPK is 24 Started bicarb drip for metabolic acidosis. Renal consult requested for oliguria/ESTEFANIA ID: Severe sepsis Tricuspid valve endocarditis with medical nonadherence and ongoing IV drug use Right lower leg abscess - spontaneously draining and pus expressed in ED. Follow-up blood and urine culture Continue Zosyn and vancomycin. Zosyn has been adjusted for Calc creatinine clearance of 24. Has history of MSSAgroup B strep in the past with ongoing drug use ID following HEME: Pancytopenia DIC Transfusion of 2 units packed red cells per ED. No indication for platelets or FFP as she does not appear to be actively bleeding. Follow-up CBC. ENDO: Euglycemic PROPH: SCDs for DVT prophylaxis. We will hold off on pharmacologic DVT prophylaxis due to thrombocytopenia. Famotidine for stress ulcer prophylaxis ACCESS: 2 large-bore peripheral IVs are in place. She is currently not requiring vasopressors. We will place CVL if vasopressors are indicated Patient has opioid dependence and ongoing IV drug use. Her opioid addiction has contributed to medical nonadherence and therefore she has had recurrent episodes of bacteremia and now 1.4 x0.5 cm mobile vegetation on tricuspid valve resulting in moderate to severe TR. Recently she has had multiple admissions but has left AMA without adherence to medical management. She is now pancytopenic with multiorgan failure. While acute treatment may result in improvement in ESTEFANIA, her prognosis appears poor. Patient is critically ill with severe sepsis and multiorgan failure. She has altered mental status and at high risk for loss of airway protection. She is at high risk for decompensation and septic shock. She requires close monitoring in ICU. Critical care time in excess of 45 minutes have been spent examining patient, reviewing medical records and laboratory and imaging data, discussion with Dr. Umaña regarding management. Robert Solorio MD September 17, 2017 12:56
[2017-09-17] MEDS: POTASSIUM CHLOR 20 MEQ PREMIX 100 ML IV SCH ×2 (13:35→16:34)
[2017-09-17] MEDS: MAGNESIUM SULFATE 1 GM PREMIX 100 ML IV SCH ×2 (13:35→15:02)
[2017-09-17] MEDS: SODIUM BICARBONATE 8.4% INJ 150 MEQ in WATER STERILE FOR INJ 850 ML IV SCH (13:41)
--- NOTE | 2017-09-17 13:53 | PD.CONS ---
[facility] Service Nephrology Consult Requested By Dr. Solorio Reason for Consult ARF Primary Care Physician Unknown History of Present Illness 37-year-old female with history of intravenous drug abuse cocaine use who had been having issues with endocarditis multiple admissions and June, she grew beta Streptococcus and methicillin sensitive staph aureus, patient was treated for it patient has recurrence continue to have issues with IVDA now admitted with acute renal failure with a creatinine of 2.15 which has gone up to 2.18. Patient has been hypotensive and temperature was very low at 89 she was warmed up to 94 to 98.1. Review of Systems Constitutional: COMPLAINS OF: Fatigue, Fever Gastrointestinal: COMPLAINS OF: Abdominal pain Past Family Social History Allergies: Coded Allergies: No Known Allergies (Unverified Allergy, Unknown, 08/13/17) Past Medical History Hepatitis C IV drug use Cocaine abuse Tricuspid valve endocarditis MSSA bacteremia 08/13/17, 08/20/17 Group A strep bacteremia 07/12/17 Past Surgical History None Reported Medications Reported Meds & Active Scripts Active No Active Prescriptions or Reported Medications Active Ordered Medications Current Medications Medications (Trade) Dose Ordered Sig/Amy Route Start Time Stop Time Status Last Admin (NS Flush) 2 ml UNSCH PRN IV FLUSH 09/16/17 17:00 (NS Flush) 2 ml BID IV FLUSH 09/16/17 21:00 09/17/17 09:00 (Pepcid Inj) 10 mg Q12HR IV PUSH 09/16/17 21:00 09/17/17 09:32 (Duoneb Neb) 1 ampule Q6HR NEB INH 09/16/17 22:00 09/17/17 03:46 (Albuterol Neb) 2.5 mg Q2HR NEB PRN INH 09/16/17 17:00 ([facility] Nursing Information) 1 Q361D XX 09/16/17 17:00 09/16/17 20:22 (Chlorhexidine 2% Cloth) 3 pack Taper DAILY@04 TOP 09/17/17 04:00 09/13/18 03:59 09/17/17 00:59 (Chlorhexidine 2% Cloth) 3 pack UNSCH PRN TOP 09/16/17 17:00 (Paula-Colace) 1 tab BID PO 09/16/17 21:00 (Milk Of Magnesia Liq) 30 ml Q12H PRN PO 09/16/17 17:00 (Senokot) 17.2 mg Q12H PRN PO 09/16/17 17:00 (Dulcolax Supp) 10 mg DAILY PRN RECTAL 09/16/17 17:00 (Lactulose Liq) 30 ml DAILY PRN PO 09/16/17 17:00 (Phenergan Inj) 25 mg Q6H PRN IM 09/16/17 17:00 Pharmacy Profile Note 0 ml @ 0 mls/hr UNSCH OTHER 09/16/17 17:30 Piperacillin Sod/ Tazobactam Sod 50 ml @ 100 mls/hr Q6H IV 09/16/17 22:00 09/17/17 09:32 Vancomycin HCl 750 mg/Sodium Chloride 257.5 ml @ 250 mls/hr Q12H IV 09/17/17 04:00 09/17/17 04:11 ([facility] Ordered Lab Info) SPECIFIC LAB TO BE ... ONCE ONCE .XX 09/18/17 03:45 09/18/17 03:46 Phenylephrine HCl 40 mg/Dextrose 500 ml @ 30 mls/hr TITRATE PRN IV 09/17/17 01:15 09/17/17 02:11 (Brethine Inj) 1 mg UNSCH PRN SQ 09/17/17 01:15 (Percocet 10-325 Mg) 1 tab Q4H PRN PO 09/17/17 08:30 09/17/17 13:34 (Dolophine) 10 mg DAILY PO 09/17/17 09:00 09/17/17 09:32 Magnesium Sulfate/ Dextrose 100 ml @ 100 mls/hr Q1H IV 09/17/17 12:45 09/17/17 14:44 09/17/17 13:35 Sodium Bicarbonate 150 meq/Sterile Water 1,000 ml @ 150 mls/hr Q6H40M IV 09/17/17 15:00 09/17/17 13:41 Potassium Chloride 100 ml @ 50 mls/hr Q2H IV 09/17/17 13:15 09/17/17 17:14 09/17/17 13:35 Family History Noncontributory Social History History of IVDA cocaine and Physical Exam Vital Signs Vital Signs Date Time Temp Pulse Resp B/P (MAP) Pulse Ox O2 Delivery O2 Flow Rate FiO2 09/17/17 10:30 98.1 92 27 100/56 (71) 97 09/17/17 10:15 98.1 91 26 105/60 (75) 97 09/17/17 10:00 98.1 89 9 108/62 (77) 98 09/17/17 09:45 98.2 89 5 115/60 (78) 100 09/17/17 09:30 98.2 92 6 105/62 (76) 97 09/17/17 09:15 98.4 92 11 102/57 (72) 99 09/17/17 09:00 98.4 89 0 106/59 (75) 100 09/17/17 08:45 98.2 88 0 114/75 (88) 100 09/17/17 08:30 98.1 90 21 104/69 (81) 100 09/17/17 08:27 100 Nasal Cannula 2.00 09/17/17 08:15 98.1 89 28 115/63 (80) 100 09/17/17 08:00 98.1 92 35 125/71 (89) 100 09/17/17 06:00 91 09/17/17 04:30 94.1 79 29 92/53 (66) 97 09/17/17 04:15 93.7 83 74 92/55 (67) 98 09/17/17 04:00 93.6 71 25 90/54 (66) 99 09/17/17 04:00 82 09/17/17 03:45 93.4 68 29 84/54 (64) 98 09/17/17 03:30 93.2 69 28 87/53 (64) 97 09/17/17 03:20 69 83/53 09/17/17 03:15 93.0 71 28 83/53 (63) 98 09/17/17 03:00 92.8 76 28 86/52 (63) 97 09/17/17 02:45 92.8 75 29 88/56 (67) 98 09/17/17 02:30 92.7 74 26 85/51 (62) 97 09/17/17 02:15 92.3 74 25 82/50 (61) 98 09/17/17 02:11 75 81/52 09/17/17 02:00 71 09/17/17 02:00 92.3 74 0 81/52 (62) 99 09/17/17 01:45 92.1 78 0 81/47 (58) 98 18 01:30 92.1 78 24 79/46 (57) 99 09/17/17 01:15 92.1 78 18 78/46 (57) 98 18 01:00 92.1 80 25 80/46 (57) 98 18 00:45 92.1 79 26 79/46 (57) 98 09/17/17 00:30 92.1 78 22 81/48 (59) 98 09/17/17 00:15 91.8 78 25 82/51 (61) 98 09/17/17 00:00 91.4 72 19 84/50 (61) 100 09/17/17 00:00 72 20 23:45 91.2 72 20 79/49 (59) 99 09/16/17 23:30 91.0 72 82/53 (63) 100 09/16/17 23:26 91.0 75 15 81/48 99 09/16/17 23:15 91.0 71 21 81/48 (59) 100 09/16/17 23:00 91.0 75 25 79/47 (58) 99 18 22:45 91.0 74 23 80/47 (58) 99 09/16/17 22:30 90.9 73 16 87/52 (64) 99 18 22:15 90.9 74 12 79/48 (58) 100 09/16/17 22:01 90.7 71 27 81/51 (61) 100 18 22:00 90.7 71 25 79/51 (60) 100 18 22:00 71 2018 21:53 90.7 73 10 87/50 100 18 21:52 90.7 73 21 87/50 (62) 100 09/16/17 21:45 90.5 72 21 99 09/16/17 21:30 89.4 72 25 81/52 (62) 100 2018 21:15 75 35 84/51 (62) 100 2018 21:01 100 Nasal Cannula 2.00 09/16/17 21:00 71 25 80/50 (60) 100 09/16/17 20:45 68 13 79/52 (61) 100 09/16/17 20:30 68 15 78/51 (60) 100 09/16/17 20:20 68 10 77/52 100 09/16/17 20:15 69 25 77/52 (60) 100 09/16/17 20:02 76 26 79/49 100 09/16/17 20:00 75 09/16/17 20:00 75 24 78/48 (58) 99 09/16/17 19:45 77 24 81/52 (62) 99 09/16/17 19:30 79 25 85/51 (62) 99 09/16/17 19:15 79 28 87/56 (66) 99 09/16/17 19:00 79 28 86/56 (66) 99 09/16/17 18:35 09/16/17 17:02 84 107/49 (68) 09/16/17 15:12 16 99 Nasal Cannula 3.00 09/16/17 15:12 99 Nasal Cannula 3.00 09/16/17 15:01 99.2 70 12 98/53 (68) 97 Physical Exam GENERAL: Well-nourished, well-developed patient. SKIN: Warm and dry. HEAD: Normocephalic. EYES: No scleral icterus. No injection or drainage. NECK: Supple, trachea midline. No JVD or lymphadenopathy. CARDIOVASCULAR: Regular rate and rhythm without murmurs, gallops, or rubs. RESPIRATORY: Breath sounds equal bilaterally. No accessory muscle use. GASTROINTESTINAL: Abdomen soft, non-tender, nondistended. EXTREMITIES: No cyanosis, or edema. NEUROLOGICAL: Awake, alert, and oriented x 3. Non-focal. Laboratory Laboratory Tests Test 09/16/17 15:29 09/16/17 16:03 09/16/17 16:45 09/16/17 17:35 White Blood Count 3.3 Red Blood Count 2.61 Hemoglobin 7.1 Hematocrit 21.4 Mean Corpuscular Volume 82.0 Mean Corpuscular Hemoglobin 27.3 Mean Corpuscular Hemoglobin Concent 33.3 Red Cell Distribution Width 17.7 Platelet Count 41 Mean Platelet Volume 10.6 Neutrophils (%) (Auto) 87.3 Lymphocytes (%) (Auto) 8.7 Monocytes (%) (Auto) 2.9 Eosinophils (%) (Auto) 0.9 Basophils (%) (Auto) 0.2 Neutrophils # (Auto) 2.9 Lymphocytes # (Auto) 0.3 Monocytes # (Auto) 0.1 Eosinophils # (Auto) 0.0 Basophils # (Auto) 0.0 CBC Comment AUTO DIFF Differential Comment AUTO DIFF CONFIRMED Platelet Estimate LOW Platelet Morphology Comment ENLARGED Ovalocytes 1+ Prothrombin Time 13.7 Prothromb Time International Ratio 1.4 Activated Partial Thromboplast Time 30.4 Blood Urea Nitrogen 43 Creatinine 2.15 Random Glucose 83 Total Protein 5.9 Albumin 1.4 Calcium Level 7.0 Phosphorus Level 4.0 Magnesium Level 1.5 Alkaline Phosphatase 101 Aspartate Amino Transf (AST/SGOT) 60 Alanine Aminotransferase (ALT/SGPT) 15 Total Bilirubin 1.1 Sodium Level 136 Potassium Level 3.2 Chloride Level 101 Carbon Dioxide Level 20.6 Anion Gap 14 Estimat Glomerular Filtration Rate 26 Lactic Acid Level 0.8 Protein Corrected Calcium 7.6 Total Creatine Kinase 24 Troponin I 0.38 Lipase 166 Human Chorionic Gonadotropin, Quant LESS THAN 1 Salicylates Level 3.3 Acetaminophen Level LESS THAN 2.0 Urine Color RED Urine Turbidity CLOUDY Urine pH 5.5 Urine Specific [place] 1.018 Urine Protein 100 Urine Glucose (UA) NEG Urine Ketones TRACE Urine Occult Blood LARGE Urine Nitrite NEG Urine Bilirubin NEG Urine Urobilinogen 8.0 Urine Leukocyte Esterase NEG Urine RBC Urine WBC 47 Urine Squamous Epithelial Cells 5 Urine Transitional Epithelial Cells 1 Urine Amorphous Sediment OCC Urine Bacteria FEW Urine Mucus FEW Microscopic Urinalysis Comment CATH-CULTURE IND Urine Opiates Screen POS Urine Barbiturates Screen NEG Urine Amphetamines Screen NEG Urine Benzodiazepines Screen POS Urine Cocaine Screen POS Urine Cannabinoids Screen NEG Blood Gas Puncture Site RT RADIAL Blood Gas Patient Temperature 98.6 Blood Gas HCO3 19 Blood Gas Base Excess -5.2 Blood Gas Oxygen Saturation 95 Arterial Blood pH 7.40 Arterial Blood Partial Pressure CO2 31 Arterial Blood Partial Pressure O2 100 Arterial Blood Oxygen Content 9.1 Arterial Blood Carboxyhemoglobin 2.0 Arterial Blood Methemoglobin 0.7 Blood Gas Hemoglobin 6.7 Oxygen Delivery Device NASAL CANNULA Blood Gas Liter Flow 3 Ammonia LESS THAN 10 Test 09/16/17 18:32 09/17/17 01:38 09/17/17 07:30 09/17/17 12:56 Nasal Screen MRSA (PCR) MRSA DETECTED Troponin I 0.54 0.67 White Blood Count 4.3 Red Blood Count 3.82 Hemoglobin 10.5 Hematocrit 31.3 Mean Corpuscular Volume 82.0 Mean Corpuscular Hemoglobin 27.5 Mean Corpuscular Hemoglobin Concent 33.5 Red Cell Distribution Width 18.4 Platelet Count 29 Mean Platelet Volume 10.1 CBC Comment AUTO DIFF Differential Total Cells Counted 100 Neutrophils % (Manual) 67 Band Neutrophils % 28 Lymphocytes % 3 Monocytes % 1 Eosinophils % 1 Neutrophils # (Manual) 4.1 Differential Comment FINAL DIFF MANUAL Toxic Granulation 1+ Toxic Vacuolation PRESENT Platelet Estimate LOW Platelet Morphology Comment NORMAL Ovalocytes 1+ [place] Cells 1+ Acanthocytes OCC Prothrombin Time 13.4 Prothromb Time International Ratio 1.3 Blood Urea Nitrogen 48 Creatinine 2.18 Random Glucose 106 Total Protein 5.4 Albumin 1.2 Calcium Level 7.0 Phosphorus Level 4.2 Magnesium Level 1.6 Alkaline Phosphatase 91 Aspartate Amino Transf (AST/SGOT) 47 Alanine Aminotransferase (ALT/SGPT) 13 Total Bilirubin 1.4 Sodium Level 141 Potassium Level 3.1 Chloride Level 111 Carbon Dioxide Level 15.9 Anion Gap 14 Estimat Glomerular Filtration Rate 26 Lactic Acid Level 1.4 Protein Corrected Calcium 7.9 Date/Time Source Procedure Growth Status 09/16/17 15:30 Blood Peripheral Aerobic Blood Culture - Preliminary Gram Positive Cocci Resulted 09/16/17 15:30 Anaerobic Blood Culture - Preliminary Gram Positive Cocci Resulted 09/16/17 16:03 Urine Catheterized Urine Urine Culture Pending Received Result Diagram: 09/17/17 0730 09/17/17 0730 Imaging Last Impressions Chest X-Ray 09/16/17 1504 Signed Impressions: Service Date/Time: Saturday, September 16, 2017 15:28 - CONCLUSION: 1. Patchy bilateral lower lobe airspace disease, more prominent on the right. Findings are concerning for multilobar pneumonia or aspiration. Zenon Busch MD Head CT 09/16/17 0000 Signed Impressions: Service Date/Time: Saturday, September 16, 2017 17:56 - CONCLUSION: 1. No acute intracranial abnormality. 2. Left maxillary and sphenoid sinus mucosal disease. Zenon Busch MD Chest CT 09/16/17 0000 Signed Impressions: Service Date/Time: Saturday, September 16, 2017 18:04 - CONCLUSION: 1. Small bilateral pleural effusions with dense bilateral lower lobe airspace consolidation. 2. Numerous bilateral inflammatory pulmonary nodules including cavitary nodules in the apices bilaterally. Findings are consistent with septic emboli. Zenon Busch MD Abdomen/Pelvis CT 09/16/17 0000 Signed Impressions: Service Date/Time: Saturday, September 16, 2017 18:04 - CONCLUSION: 1. Limited examination due to paucity of peritoneal fat and patient's overlying arms. 2. Hepatosplenomegaly with small amount of ascites. 3. Small to moderate amount of colonic stool without evidence for bowel obstruction. Zenon Busch MD Assessment and Plan Problem List: (1) Acute renal failure ICD Codes: N17.9 - Acute kidney failure, unspecified Plan: This is likely due to underlying endocarditis and severe infection Continue to monitor urine output Agree with bicarbonate drip Potassium replete Avoid nephrotoxic agent Dye study Follow BMP Check urine eosinophils, Na, creatinine repeat CPK in am (2) Endocarditis ICD Codes: I38 - Endocarditis, valve unspecified Status: Acute Plan: Due to IVDA (3) Severe sepsis ICD Codes: A41.9 - Sepsis, unspecified organism; R65.20 - Severe sepsis without septic shock Status: Acute Plan: Staph aureus septicemia Azalea Gillette MD September 17, 2017 13:53
[2017-09-17 14:10] LABS: D-DIMER 12.08 MG/L FEU (0.00-0.50)
[2017-09-18] VITALS (24 sets, daily range): BP systolic 94–109; BP diastolic 51–74; PULSE 71–98; RESP 20–30; TEMP 97.3–97.8; O2SAT 94–96
[2017-09-18] MEDS: PIPERACIL-TAZO 3.375 GM PREMIX 50 ML IV SCH (03:15)
[2017-09-18] MEDS: oxyCODONE/ACETAMINOPHEN 10 MG/325 MG TAB PO PRN ×4 (03:15→22:32)
[2017-09-18] MEDS: RESP: ALBUTEROL 2.5 MG/IPRATROPIUM 0.5 MG NEB (SCH) INH ×4 (03:43→21:21)
[2017-09-18] MEDS ORDERED: PHARMACY ORDERED LAB ONE ×2 (03:45→15:45)
[2017-09-18] MEDS: CHLORHEXIDINE GLUCONATE 2 % 1 PACK (2 CLOTHS) TOP SCH (04:00)
[2017-09-18] MEDS: VANCOMYCIN INJ 750 MG in SODIUM CHLOR 0.9% 250 ML INJ 250 ML IV SCH (04:25)
[2017-09-18 07:22] LABS: HEMATOCRIT 27.9 % (35.0-46.0); HEMOGLOBIN 9.5 GM/DL (11.6-15.3); MEAN CELL VOLUME 80.7 FL (80.0-100.0); MEAN CORPUSCULAR HEMOGLOBIN 27.4 PG (27.0-34.0); MEAN CORPUSCULAR HGB CONC 33.9 % (32.0-36.0); MEAN PLATELET VOLUME 10.1 FL (7.0-11.0); RED BLOOD COUNT 3.46 MIL/MM3 (4.00-5.30); RED CELL DISTRIBUTION WIDTH 18.5 % (11.6-17.2); WHITE BLOOD COUNT 4.6 TH/MM3 (4.0-11.0)
[2017-09-18 07:52] LABS: PLATELET COUNT 16 TH/MM3 (150-450)
[2017-09-18 08:15] LABS: BANDS 16 % (0-6); LYMPHOCYTES 14 % (9-44); MONOCYTES 1 % (0-8); NEUTROPHIL # MANUAL DIFF 3.9 TH/MM3 (1.8-7.7); POLYS (SEG NEUTROPHILS) 69 % (16-70); TOXIC GRANULATION 2+ (NORMAL)
[2017-09-18 08:16] LABS: TOXIC VACUOLATION PRESENT (NONE SEEN)
[2017-09-18 08:17] LABS: ACANTHOCYTES 1+ (NORMAL)
[2017-09-18 08:18] LABS: BURR CELLS 2+ (NORMAL); OVALOCYTES 1+ (NORMAL)
[2017-09-18] MEDS: FAMOTIDINE 20 MG/2 ML VIAL IV PUSH SCH ×2 (08:20→21:03)
[2017-09-18] MEDS: DOCUSATE SODIUM 50 MG/SENNA 8.6 MG TAB PO SCH ×2 (08:20→21:03)
[2017-09-18] MEDS: METHADONE HCL 10 MG TAB PO SCH (08:20)
[2017-09-18 08:21] LABS: ALBUMIN 1.1 GM/DL (3.4-5.0); BICARBONATE 18.3 MEQ/L (21.0-32.0); CALCIUM 6.9 MG/DL (8.5-10.1); CREATININE 2.63 MG/DL (0.50-1.00); TOTAL BILIRUBIN ADULT 0.8 MG/DL (0.2-1.0)
[2017-09-18] MEDS: SODIUM CHLORIDE 0.9% FLUSH 10 ML FLUSH IV FLUSH SCH ×2 (08:21→21:03)
[2017-09-18] MEDS: SODIUM BICARBONATE 8.4% INJ 150 MEQ in WATER STERILE FOR INJ 850 ML IV SCH ×4 (08:21→23:22)
--- NOTE | 2017-09-18 09:50 | HHI.IDPN ---
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 Patient also had another admission in July, and at that time her blood cultures grew methicillin sensitive staph aureus. She signed out AGAINST MEDICAL ADVICE again at that time. When she came in this time, her CBC showed pancytopenia. CT of the chest showed evidence of multiple pulmonary septic emboli. 2 blood cultures done are now showing staph aureus. She was also hypotensive, and also had an elevated creatinine. Her urine output has been low. CT of the head did not show any significant abnormality. CT of the abdomen and pelvis showed splenomegaly. Patient currently still lethargic, and moaning. She is complaining of pain throughout her whole body. She is on Celso-Synephrine. Infectious disease consultation has been requested to evaluate the patient. Notes reviewed Temps ok On neosynephrine BC with Staph aureus Creatinine rising Platelets worse Has DIC No bleeding Antibiotics Vancomycin Zosyn Current Medications Medications (Trade) Dose Ordered Sig/Amy Route Start Time Stop Time Status Last Admin (NS Flush) 2 ml UNSCH PRN IV FLUSH 09/16/17 17:00 (NS Flush) 2 ml BID IV FLUSH 09/16/17 21:00 09/18/17 08:21 (Pepcid Inj) 10 mg Q12HR IV PUSH 09/16/17 21:00 09/18/17 08:20 (Duoneb Neb) 1 ampule Q6HR NEB INH 09/16/17 22:00 09/18/17 08:45 (Albuterol Neb) 2.5 mg Q2HR NEB PRN INH 09/16/17 17:00 ([facility] [place] Nursing Information) 1 Q361D XX 09/16/17 17:00 09/16/17 20:22 (Chlorhexidine 2% Cloth) 3 pack Taper DAILY@04 TOP 09/17/17 04:00 09/13/18 03:59 09/18/17 04:00 (Chlorhexidine 2% Cloth) 3 pack UNSCH PRN TOP 09/16/17 17:00 (Paula-Colace) 1 tab BID PO 5/20/18 21:00 09/18/17 08:20 (Milk Of Magnesia Liq) 30 ml Q12H PRN PO 09/16/17 17:00 (Senokot) 17.2 mg Q12H PRN PO 09/16/17 17:00 (Dulcolax Supp) 10 mg DAILY PRN RECTAL 09/16/17 17:00 (Lactulose Liq) 30 ml DAILY PRN PO 09/16/17 17:00 (Phenergan Inj) 25 mg Q6H PRN IM 09/16/17 17:00 Pharmacy Profile Note 0 ml @ 0 mls/hr UNSCH OTHER 09/16/17 17:30 Piperacillin Sod/ Tazobactam Sod 50 ml @ 100 mls/hr Q6H IV 09/16/17 22:00 09/18/17 03:15 Vancomycin HCl 750 mg/Sodium Chloride 257.5 ml @ 250 mls/hr Q12H IV 09/17/17 04:00 09/18/17 04:25 Phenylephrine HCl 40 mg/Dextrose 500 ml @ 30 mls/hr TITRATE PRN IV 09/17/17 01:15 09/17/17 16:36 (Brethine Inj) 1 mg UNSCH PRN SQ 09/17/17 01:15 (Percocet 10-325 Mg) 1 tab Q4H PRN PO 09/17/17 08:30 09/18/17 08:20 (Dolophine) 10 mg DAILY PO 09/17/17 09:00 09/18/17 08:20 Sodium Bicarbonate 150 meq/Sterile Water 1,000 ml @ 150 mls/hr Q6H40M IV 09/17/17 15:00 09/18/17 08:21 Past Medical History Hepatitis C Tricuspid valve endocarditis Group A strep sepsis MSSA sepsis Known active IV drug use Allergies: Coded Allergies: No Known Allergies (Unverified Allergy, Unknown, 08/13/17) Objective . Vital Signs Date Time Temp Pulse Resp B/P (MAP) Pulse Ox O2 Delivery O2 Flow Rate FiO2 09/18/17 08:48 96 Nasal Cannula 2.00 09/18/17 06:00 71 09/18/17 04:00 97.6 74 20 97/51 (66) 94 09/18/17 04:00 75 09/18/17 02:00 78 09/18/17 00:00 79 09/18/17 00:00 97.8 80 20 95/56 (69) 95 09/17/17 22:00 83 09/17/17 20:26 95 Nasal Cannula 2.00 09/17/17 20:00 87 09/17/17 20:00 97.7 87 22 94/52 (66) 96 09/17/17 16:36 80 95/53 09/17/17 16:30 95.9 81 25 95/53 (67) 96 09/17/17 16:15 96.1 91 38 108/57 (74) 96 09/17/17 16:00 96.3 84 9 96/52 (67) 96 09/17/17 15:45 96.3 92 31 98/54 (69) 95 09/17/17 15:30 96.3 78 28 102/61 (75) 97 09/17/17 15:15 96.3 79 25 100/62 (75) 96 09/17/17 15:00 96.3 77 22 103/65 (78) 97 09/17/17 14:45 96.4 79 26 96/57 (70) 96 09/17/17 14:30 96.4 84 88/51 (63) 97 09/17/17 14:15 96.3 82 82/49 (60) 95 09/17/17 14:00 96.3 83 85/54 (64) 96 09/17/17 13:45 96.1 82 88/49 (62) 96 09/17/17 13:30 96.1 92 38 101/58 (72) 96 09/17/17 13:15 96.1 81 12 96/55 (69) 97 09/17/17 13:00 96.1 86 33 101/58 (72) 97 09/17/17 12:45 95.9 79 25 89/54 (66) 97 09/17/17 12:30 95.9 79 25 94/55 (68) 96 09/17/17 12:15 96.1 75 24 100/59 (73) 98 09/17/17 12:00 96.4 86 27 101/65 (77) 97 09/17/17 10:30 98.1 92 27 100/56 (71) 97 09/17/17 10:15 98.1 91 26 105/60 (75) 97 09/17/17 10:00 98.1 89 9 108/62 (77) 98 09/17/17 09:45 98.2 89 5 115/60 (78) 100 . Laboratory Tests Test 09/16/17 15:29 09/17/17 07:30 09/18/17 06:26 White Blood Count 3.3 TH/MM3 4.3 TH/MM3 4.6 TH/MM3 Red Blood Count 2.61 MIL/MM3 3.82 MIL/MM3 3.46 MIL/MM3 Hemoglobin 7.1 GM/DL 10.5 GM/DL 9.5 GM/DL Hematocrit 21.4 % 31.3 % 27.9 % Mean Corpuscular Volume 82.0 FL 82.0 FL 80.7 FL Mean Corpuscular Hemoglobin 27.3 PG 27.5 PG 27.4 PG Mean Corpuscular Hemoglobin Concent 33.3 % 33.5 % 33.9 % Red Cell Distribution Width 17.7 % 18.4 % 18.5 % Platelet Count 41 TH/MM3 29 TH/MM3 16 TH/MM3 Mean Platelet Volume 10.6 FL 10.1 FL 10.1 FL Neutrophils (%) (Auto) 87.3 % Lymphocytes (%) (Auto) 8.7 % Monocytes (%) (Auto) 2.9 % Eosinophils (%) (Auto) 0.9 % Basophils (%) (Auto) 0.2 % Neutrophils # (Auto) 2.9 TH/MM3 Lymphocytes # (Auto) 0.3 TH/MM3 Monocytes # (Auto) 0.1 TH/MM3 Eosinophils # (Auto) 0.0 TH/MM3 Basophils # (Auto) 0.0 TH/MM3 CBC Comment AUTO DIFF AUTO DIFF AUTO DIFF Differential Comment AUTO DIFF CONFIRMED FINAL DIFF MANUAL FINAL DIFF MANUAL Platelet Estimate LOW LOW LOW Platelet Morphology Comment ENLARGED NORMAL NORMAL Ovalocytes 1+ 1+ 1+ Differential Total Cells Counted 100 100 Neutrophils % (Manual) 67 % 69 % Band Neutrophils % 28 % 16 % Lymphocytes % 3 % 14 % Monocytes % 1 % 1 % Eosinophils % 1 % Neutrophils # (Manual) 4.1 TH/MM3 3.9 TH/MM3 Toxic Granulation 1+ 2+ Toxic Vacuolation PRESENT PRESENT [place] Cells 1+ 2+ Acanthocytes OCC 1+ Laboratory Tests Test 09/16/17 15:29 09/16/17 17:35 09/17/17 01:38 09/17/17 07:30 Blood Urea Nitrogen 43 MG/DL 48 MG/DL Creatinine 2.15 MG/DL 2.18 MG/DL Random Glucose 83 MG/DL 106 MG/DL Total Protein 5.9 GM/DL 5.4 GM/DL Albumin 1.4 GM/DL 1.2 GM/DL Calcium Level 7.0 MG/DL 7.0 MG/DL Phosphorus Level 4.0 MG/DL 4.2 MG/DL Magnesium Level 1.5 MG/DL 1.6 MG/DL Alkaline Phosphatase 101 U/L 91 U/L Aspartate Amino Transf (AST/SGOT) 60 U/L 47 U/L Alanine Aminotransferase (ALT/SGPT) 15 U/L 13 U/L Total Bilirubin 1.1 MG/DL 1.4 MG/DL Sodium Level 136 MEQ/L 141 MEQ/L Potassium Level 3.2 MEQ/L 3.1 MEQ/L Chloride Level 101 MEQ/L 111 MEQ/L Carbon Dioxide Level 20.6 MEQ/L 15.9 MEQ/L Anion Gap 14 MEQ/L 14 MEQ/L Estimat Glomerular Filtration Rate 26 ML/MIN 26 ML/MIN Lactic Acid Level 0.8 mmol/L 1.4 mmol/L Protein Corrected Calcium 7.6 MG/DL 7.9 MG/DL Total Creatine Kinase 24 U/L Troponin I 0.38 NG/ML 0.54 NG/ML 0.67 NG/ML Lipase 166 U/L Human Chorionic Gonadotropin, Quant LESS THAN 1 MIU/ML Ammonia LESS THAN 10 MCMOL/L Test 09/18/17 06:26 Blood Urea Nitrogen 49 MG/DL Creatinine 2.63 MG/DL Random Glucose 123 MG/DL Total Protein 5.0 GM/DL Albumin 1.1 GM/DL Calcium Level 6.9 MG/DL Alkaline Phosphatase 78 U/L Aspartate Amino Transf (AST/SGOT) 23 U/L Alanine Aminotransferase (ALT/SGPT) 10 U/L Total Bilirubin 0.8 MG/DL Sodium Level 140 MEQ/L Potassium Level 3.3 MEQ/L Chloride Level 108 MEQ/L Carbon Dioxide Level 18.3 MEQ/L Anion Gap 14 MEQ/L Estimat Glomerular Filtration Rate 21 ML/MIN Protein Corrected Calcium 8.0 MG/DL Total Creatine Kinase 9 U/L Microbiology Date/Time Source Procedure Growth Status 09/16/17 15:30 Blood Peripheral Aerobic Blood Culture - Preliminary Gram Positive Cocci Resulted 09/16/17 15:30 Anaerobic Blood Culture - Preliminary Gram Positive Cocci Resulted 09/16/17 15:25 Blood Peripheral Aerobic Blood Culture - Preliminary Staphylococcus Aureus Resulted 09/16/17 15:25 Anaerobic Blood Culture - Preliminary Gram Positive Cocci Resulted 09/16/17 16:03 Urine Catheterized Urine Urine Culture - Preliminary NO GROWTH IN 24 HOURS. Resulted Physical Exam GENERAL: Awakens easily, not in distress, SKIN: Warm and dry. No generalized rash, no ecchymoses and no evidence of embolic lesions. HEAD: Atraumatic. Normocephalic. No temporal wasting, or tenderness. EYES: [place] conjunctiva. No petechia or hemorrhage. Pupils equal, round and reactive to light. Extraocular movements full and intact. No scleral icterus. No injection or drainage. EARS, NOSE AND THROAT: Nose without bleeding or purulent nasal discharge. No sinus tenderness. Very dry oral mucosa. NECK: Trachea midline. Supple, no meningeal signs CARDIOVASCULAR: Regular rate and rhythm. No murmurs, rubs or gallops heard RESPIRATORY: Clear to auscultation. Breath sounds equal bilaterally. No rales , wheezing or rhonchi. Decreased breath sounds at the bases ABDOMEN: Distended, with diffuse abdominal tenderness, tympanitic on percussion. Bowel sounds present and normoactive. : Dan cath in place EXTREMITIES: No clubbing, cyanosis. Has bilateral pitting pedal edema. Pain with any touching or movement of both lower extremity. Did not appreciate any erythema in any parts of her lower extremity. Well perfused and warm. NEUROLOGICAL: Lethargic, but does follow commands. Cranial nerves grossly intact. Motor not evaluated completely due to pain with any touching or movement of all her extremities PSYCHIATRIC: Lethargic, unable to fully assess LINE: No evidence of infection Assessment & Plan Remarks IMPRESSION Sepsis with shock, due to endocarditis - previously had GAS, then MSSA - now with GPC, ?MSSA vs new strain Has pulmonary septic emboli Has UTI Renal insufficiency Pancytopenia RECOMMENDATION Continue Vanco until C/S finalized IV Oxacillin Stop Zosyn Levaquin to have some pulmonary coverage Follow cultures Echo Follow CBC Monitor bleeding Monitor progress She will need a course of IV antibiotics for her endocarditis Milana Harp MD September 18, 2017 09:50
[2017-09-18] MEDS: LEVOFLOXACIN 500 MG TAB PO SCH (11:21)
[2017-09-18] MEDS: OXACILLIN INJ 2 GM in SODIUM CHLORIDE 0.9% INJ 100 ML IV SCH ×4 (11:21→23:58)
--- NOTE | 2017-09-18 11:49 | HHI.NPPN ---
Subjective History of Present Illness Patient is a 37-year-old with IVDA and endocarditis with acute renal failure Review of Systems General Constitutional: Fatigue Musculoskeletal MS: Pain/Stiffness Objective Data Data Vital Signs Date Time Temp Pulse Resp B/P (MAP) Pulse Ox O2 Delivery O2 Flow Rate FiO2 09/18/17 08:48 96 Nasal Cannula 2.00 09/18/17 06:00 71 09/18/17 04:00 97.6 74 20 97/51 (66) 94 09/18/17 04:00 75 09/18/17 02:00 78 09/18/17 00:00 79 09/18/17 00:00 97.8 80 20 95/56 (69) 95 09/17/17 22:00 83 09/17/17 20:26 95 Nasal Cannula 2.00 09/17/17 20:00 87 09/17/17 20:00 97.7 87 22 94/52 (66) 96 09/17/17 16:36 80 95/53 09/17/17 16:30 95.9 81 25 95/53 (67) 96 09/17/17 16:15 96.1 91 38 108/57 (74) 96 09/17/17 16:00 96.3 84 9 96/52 (67) 96 09/17/17 15:45 96.3 92 31 98/54 (69) 95 09/17/17 15:30 96.3 78 28 102/61 (75) 97 09/17/17 15:15 96.3 79 25 100/62 (75) 96 09/17/17 15:00 96.3 77 22 103/65 (78) 97 09/17/17 14:45 96.4 79 26 96/57 (70) 96 09/17/17 14:30 96.4 84 88/51 (63) 97 09/17/17 14:15 96.3 82 82/49 (60) 95 09/17/17 14:00 96.3 83 85/54 (64) 96 09/17/17 13:45 96.1 82 88/49 (62) 96 09/17/17 13:30 96.1 92 38 101/58 (72) 96 09/17/17 13:15 96.1 81 12 96/55 (69) 97 09/17/17 13:00 96.1 86 33 101/58 (72) 97 09/17/17 12:45 95.9 79 25 89/54 (66) 97 09/17/17 12:30 95.9 79 25 94/55 (68) 96 09/17/17 12:15 96.1 75 24 100/59 (73) 98 09/17/17 12:00 96.4 86 27 101/65 (77) 97 -: 09/18/17 0626 09/18/17 0626 Physical Exam General Appearance: Pale Neck Neck Exam: Neck Supple Pulmonary Resp Exam: Decreased Bases Cardiology CV Exam: Regular Gastrointestinal/Abdomen GI Exam: Soft, Non-Tender, Bowel Sounds Present Integumentary Skin Exam: Ulcer(s) Extremeties Extremities Exam: No Edema Neurologic Neuro Exam: Alert, Awake, Oriented Assessment/Plan Problem List: (1) Acute renal failure ICD Codes: N17.9 - Acute kidney failure, unspecified Plan: This is likely due to underlying endocarditis and severe infection Continue to monitor urine output Agree with bicarbonate drip Patient is dehydrated/ATN Albumin 25 g IV every 6 hourly as ordered Follow BMP Check urine eosinophils, Na, creatinine (2) Endocarditis ICD Codes: I38 - Endocarditis, valve unspecified Status: Acute Plan: Due to IVDA (3) Severe sepsis ICD Codes: A41.9 - Sepsis, unspecified organism; R65.20 - Severe sepsis without septic shock Status: Acute Plan: Staph aureus septicemia Azalea Gillette MD September 18, 2017 11:49
[2017-09-18] MEDS: ALBUMIN 25% INJ 100 ML IV SCH ×3 (12:00→23:58)
--- NOTE | 2017-09-18 18:53 | MB ---
cc: Maki Izquierdo MD, Tabitha N MD DATE: 09/18/2017 CHIEF COMPLAINT: 1. Thrombocytopenia. 2. Infectious endocarditis. 3. Sepsis. HISTORY OF PRESENT ILLNESS: Ms. Stiles is a 37-year-old lady with a history of IV drug abuse, cocaine abuse, tricuspid valve endocarditis, hepatitis C, who was brought to the [facility] Emergency Department on 09/16/2017 via ambulance due to altered mental status at home. She has had multiple admissions to [facility] related to endocarditis, most recently in 06/2017, 07/2017 and earlier this month. Her admission in June was from 07/13 through 07/18/2017, where she was found to have a group B strep bacteremia. Her admission in July was from 08/20 to 08/27/2017 for an MSSA bacteremia. Her admission earlier this month was from mid 09/07 through 09/09 for an MSSA bacteremia. On each of these prior occasions, she left the hospital against medical advice. Echocardiogram from 09/08/2017 showed an ejection fraction of 50%, mild aortic insufficiency, moderate mitral regurgitation, moderate tricuspid regurgitation. Tricuspid valve vegetation was present. On admission to the Emergency Department, her temperature was 99.9. She was found to be pancytopenic with white blood cell count of 3.3, platelet count 41,000, hemoglobin of 7.1. She was also found to have an acute kidney injury with a creatinine of 2.15. AST is elevated. She received vancomycin and Zosyn in the emergency room as well as IV fluids. She has been placed on oxacillin currently and the infectious disease team has been consulted. This was recently narrowed down from Zosyn due to culture. She continues on vancomycin, which is renally dosed. Nephrology service is also following due to acute kidney injury due to endocarditis and severe infection and dehydration. IMAGING STUDIES: Include head CT from admission with no acute intracranial abnormality, left maxillary and sphenoid sinus mucosal disease. CT chest with small bilateral pleural effusions with dense bilateral lower lobe airspace consolidation, numerous bilateral inflammatory pulmonary nodules including cavitary nodules in the apices bilaterally. Findings consistent with septic emboli. CT scan of the abdomen and pelvis with hepatosplenomegaly with small amount of ascites. Liver is noted as diffusely enlarged without gross focal mass or intrahepatic ductal dilation. Spleen measures 19 cm. LABORATORY STUDIES: From today, white blood cell count 4.6, hemoglobin 9.5, platelet count is 16,000. MCV is 80.7. She is noted to have toxic granulation, toxic vacuolization, low platelets, ovalocytes, burst cells and acanthocytes on her differential. Total bilirubin is 0.8. AST and ALT are within normal limits. Alkaline phosphatase is 7, total protein 5.0, albumin is 1.1. Creatinine is 2.63. Fibrinogen is 166. D-dimer is 12. PT is 13.4, INR is 1.3. She was positive for opiates, benzodiazepines, and cocaine on drug screen from admission. Hepatitis studies including HIV are positive. Beta hCG is negative. ROS as above in HPI. All other systems negative. PAST MEDICAL HISTORY: Hepatitis C, tricuspid valve endocarditis, multiple infections including group A strep sepsis, methicillin sensitive staphylococcus aureus sepsis, known intravenous drug abuse. PAST SURGICAL HISTORY: None. FAMILY HISTORY: Unable to obtain due to the patient's mental status. SOCIAL HISTORY: The patient lives with her mother. She is positive for tobacco abuse. No alcohol abuse. Known illegal drug use. PHYSICAL EXAMINATION: VITAL SIGNS: Temperature 94.6, pulse 91, respiratory rate 26, pulse oximetry is 94%. GENERAL: Chronically ill-appearing lady resting in bed, no distress. HEENT: Head is normocephalic, atraumatic. Eyes: PERRLA, EOMI. No scleral icterus. NECK: Supple. No palpable lymphadenopathy. CARDIOVASCULAR: Regular rate and rhythm. No murmurs. RESPIRATORY: Clear to auscultation bilaterally. ABDOMEN: Protuberant, nontender. Bowel sounds present. EXTREMITIES: Bilateral lower extremity edema present. Bilateral upper extremity edema present that is worse on the left side. NEUROLOGIC: Grossly nonfocal, oriented to person and place, drowsy but awakens. ASSESSMENT AND PLAN: 1. Thrombocytopenia in a patient with severe sepsis, known endocarditis with prolonged coags, low fibrinogen, low platelet count, anemia, clinical picture of abnormal laboratory studies due to DIC predominates. is treated by treating underlying cause, which would be her tricuspid valve endocarditis and severe sepsis. She is currently on antibiotics including oxacillin and vancomycin for further treatment. 2. Coagulopathy with prolonged PT, PTT, INR, low fibrinogen, elevated D-dimer. This is characteristics of acute disseminated intravascular coagulation. This is being treated by treating her underlying infection. Other contributing factors to her thrombocytopenia include infection, antibiotic use as well as hypersplenism that is present. 3. Anemia, status post blood transfusion with appropriate response. We will continue to follow. MD CRISTY Gonsales/ , 05:50 PM , 06:52 PM [place]
--- NOTE | 2017-09-18 19:13 | HHI.CCPN ---
Subjective Remarks/Hospital Course 09/16: 37-year-old female with past medical history of IV drug use, cocaine abuse , tricuspid valve endocarditis, hepatitis C who was brought to [facility] emergency department via [facility] due to decreased level of consciousness. She has multiple admissions to [facility] related to endocarditis including 07/13-07/18 (group B strep bacteremia), 08/20-08/27 (MSSA bactermia), -09/09 (MSSA bacteremia). On each occasion, she left AMA. Echo from 09/08/17 demonstrated ejection fraction of 50%, mild AI, moderate MR, moderate TR. She has a tricuspid valve vegetation. Her temp is 99.9. She is pancytopenic with white blood cell count of 3.3, platelets 41, hemoglobin 7.1. She has acute kidney injury with creatinine of 2.15. AST is elevated. She received 500 mL of fluid per EVAC and an additional 3 L normal saline bolus in the emergency department. She received vancomycin, Zosyn, calcium. [facility] was consulted for admission. CT scans have been ordered but were pending at the time of admission. 09/17: Resting in bed. Complaining of generalized pain Subjective: 09/18 Off neosynephrine. Platelet count down to 16, labs c/w DIC. No active bleeding. She is complaining of pain "everywhere" particularly [her buttocks] . Oliguric despite large volume fluids. Objective Vital Signs Date Time Temp Pulse Resp B/P (MAP) Pulse Ox O2 Delivery O2 Flow Rate FiO2 09/18/17 18:00 95 09/18/17 16:00 94.6 26 94 09/18/17 10:57 94/54 (67) 09/18/17 08:48 Nasal Cannula 2.00 Intake and Output 09/18/17 09/18/17 09/19/17 08:00 16:00 00:00 Intake Total 360 ml 840 ml Output Total 100 ml 150 ml Balance 260 ml 690 ml Result Diagram: 09/18/17 0626 09/18/17 0626 Other Results Microbiology Date/Time Source Procedure Growth Status 09/16/17 15:30 Blood Peripheral Aerobic Blood Culture - Final Staphylococcus Aureus Complete 09/16/17 15:30 Anaerobic Blood Culture - Final Staphylococcus Aureus Complete 09/16/17 16:03 Urine Catheterized Urine Urine Culture - Final NO GROWTH IN 48 HOURS. Complete Objective Remarks GENERAL: Under nourished ill-appearing disheveled female who is moaning in pain. SKIN: Warm and dry. There are track christina present on her bilateral arms and anterior shins. There is a 3 cm wound over the medial aspect of her right osorio where there is an abscess that I had expressed pus out of on admission but now no additional purulence expressed. There is a 3 cm wound over the medial aspect of left lower leg with some serous drainage. HEAD: Atraumatic. Normocephalic. EYES: Pupils equal and round, 2 mm react. No scleral icterus. Bilateral conjunctival injection. ENT: No nasal bleeding or discharge. Mucous membranes moist. NECK: Trachea midline. CARDIOVASCULAR: Regular rate and rhythm. 3out of 6 systolic murmur left lower sternal border RESPIRATORY: Mildly tachypneic but no accessory muscle use. Sounds are diminished bibasilar GASTROINTESTINAL: Abdomen soft, she grimaces to palpation throughout abdomen, nondistended, hypoactive bowel sounds. +palpable hepatomegaly. : Labia majora are diffusely edematous. There is not erythema or induration, appears to be dependent edema. There is large amount of white vaginal discharge. There is no perirectal erythema, swelling or e/o perirectal abscess on digital exam. MUSCULOSKELETAL: Extremities without clubbing, cyanosis. Edema bilateral hands and 1+ bipedal edema, diffuse edema of LUE. NEUROLOGICAL: Awake and alert. Moaning and complaining of pain. Knows it is 2018 and knows she is at [facility].. No obvious cranial nerve deficits. Motor grossly within normal limits. A/P Assessment and Plan NEURO: Acute encephalopathy, secondary to sepsis improved. IV drug use Opioid dependent Benzodiazepine abuse Cocaine abuse Obtained CT brain - no acute abnormality. Left maxillary and sphenoid sinus disease Added methadone 10 mg daily and Percocet 10/325 mg p.o. every 4 hourly as needed for pain and to avoid withdrawal RESP: Septic pulmonary emboli Nasal cannula wean as tolerated ABG demonstrates no hypercapnia. Will monitor for airway protection CV: Tricuspid valve vegetation with severe TR Endocarditis Severe sepsis with multiorgan failure HAs received large volume fluid resuscitation On Bicarb drip at 150 ml/hr but is oliguric with increasing creatinine. Was on neosynephrine, now weaned off. Will back off rate of bicarb drip now. With severe TR, hepatosplenomegaly, peripheral edema, suspect RV dysfunction will be the issue and will need to initiate Lasix, HD if no response. GI: Abdominal pain Hepatosplenomegaly Moderate protein energy malnutrition P.o. diet as tolerated CT abdomen and pelvis - Hepatosplenomegaly with small ascites. Moderate amount of stool in the colon without evidence of bowel obstruction. FEN/RENAL: Acute kidney injury Hypokalemia Dan in place. Monitor and intake and output hourly CPK is 24. F/u FeNa and urine eos ordered per nephrology. Started bicarb drip for metabolic acidosis. Nephrology following. ID: Severe sepsis Tricuspid valve endocarditis with medical nonadherence and ongoing IV drug use Right lower leg abscess - spontaneously draining and pus expressed in ED. Blood culture taph aureus Blood culture 09/18pending Urine culture 09/16no growth Continue antibiotics per ID: Amoxicillin, Levaquin. ID following, Dr. Harp Vaginal edema appears dependent, no cellulitis. Vaginal discharge - vaginal swab sent for GC/Chl and wet prep HEME: Pancytopenia on admission Now worsening thrombocytopenia DIC Transfusion of 2 units packed red cells per ED. In DIC No indication for platelets or FFP as she does not appear to be actively bleeding. Platelets continuing to drop. Will check ultrasound to assess for DVT as source of platelet consumption which could benefit from heparin despite low counts as DIC also prothrombotic. Hematology consulted. ENDO: Euglycemic PROPH: SCDs for DVT prophylaxis. We will hold off on pharmacologic DVT prophylaxis at this point due to thrombocytopenia. Famotidine for stress ulcer prophylaxis ACCESS: 2 large-bore peripheral IVs are in place. She is currently not requiring vasopressors. We will place CVL if needed. Patient has opioid dependence and ongoing IV drug use. Her opioid addiction has contributed to medical nonadherence and therefore she has had recurrent episodes of bacteremia and now 1.4 x0.5 cm mobile vegetation on tricuspid valve resulting in moderate to severe TR. Recently she has had multiple admissions but has left AMA without adherence to medical management. She is now pancytopenic with multiorgan failure. While acute treatment may result in improvement in ESTEFANIA, her prognosis appears poor. Level 3 followup. Tanya Mcnulty MD September 18, 2017 19:13
[2017-09-18 23:15] LABS: INTERNATIONAL NORMALIZED RATIO 1.1 RATIO; PROTHROMBIN TIME - PATIENT 10.9 SEC (9.8-11.6)
[2017-09-18] MEDS ORDERED: CALCIUM GLUCONATE INJ 2 GM in SODIUM CHLORIDE 0.9% INJ 100 ML IV ONE (23:30)
[2017-09-18] MEDS: POTASSIUM CHLORIDE 10 MEQ CONTROLLED RELEASE TAB PO SCH (23:57)
[2017-09-19] VITALS (33 sets, daily range): BP systolic 103–143; BP diastolic 52–76; PULSE 80–193; RESP 19–39; TEMP 97.6–98; O2SAT 90–98
[2017-09-19] MEDS ORDERED: FUROSEMIDE 20 MG/2 ML VIAL IV PUSH ONE (00:15)
[2017-09-19] MEDS: oxyCODONE/ACETAMINOPHEN 10 MG/325 MG TAB PO PRN ×3 (02:40→18:42)
[2017-09-19] MEDS: POTASSIUM CHLORIDE 10 MEQ CONTROLLED RELEASE TAB PO SCH (03:18)
[2017-09-19] MEDS: OXACILLIN INJ 2 GM in SODIUM CHLORIDE 0.9% INJ 100 ML IV SCH ×5 (03:18→20:10)
[2017-09-19] MEDS: CHLORHEXIDINE GLUCONATE 2 % 1 PACK (2 CLOTHS) TOP SCH (04:00)
[2017-09-19] MEDS: RESP: ALBUTEROL 2.5 MG/IPRATROPIUM 0.5 MG NEB (SCH) INH ×4 (04:36→21:04)
[2017-09-19] MEDS: SODIUM BICARBONATE 8.4% INJ 150 MEQ in WATER STERILE FOR INJ 850 ML IV SCH ×2 (05:22→17:37)
[2017-09-19] MEDS: ALBUMIN 25% INJ 100 ML IV SCH ×3 (05:33→17:36)
[2017-09-19] MEDS: FAMOTIDINE 20 MG/2 ML VIAL IV PUSH SCH (07:45)
[2017-09-19] MEDS: DOCUSATE SODIUM 50 MG/SENNA 8.6 MG TAB PO SCH ×2 (07:45→20:11)
[2017-09-19] MEDS: SODIUM CHLORIDE 0.9% FLUSH 10 ML FLUSH IV FLUSH SCH ×2 (07:45→20:11)
[2017-09-19] MEDS: METHADONE HCL 10 MG TAB PO SCH (07:45)
--- NOTE | 2017-09-19 08:02 | HHI.NPPN ---
Subjective History of Present Illness Patient is a 37-year-old with IVDA and endocarditis with acute renal failure Review of Systems General Constitutional: Fatigue Musculoskeletal MS: Pain/Stiffness Objective Data Data Vital Signs Date Time Temp Pulse Resp B/P (MAP) Pulse Ox O2 Delivery O2 Flow Rate FiO2 09/19/17 06:00 94 09/19/17 04:00 89 09/19/17 04:00 97.6 95 24 107/52 (70) 93 09/19/17 02:00 98 09/19/17 00:00 102 09/19/17 00:00 98.0 102 22 103/56 (72) 93 09/18/17 22:00 98 09/18/17 21:22 95 21 09/18/17 20:00 95 09/18/17 20:00 97.8 95 22 109/74 (86) 94 09/18/17 18:00 95 09/18/17 16:00 91 09/18/17 16:00 94.6 91 26 94 09/18/17 15:00 90 09/18/17 14:00 81 09/18/17 12:00 85 09/18/17 12:00 97.3 85 26 95 09/18/17 10:57 95.9 81 24 94/54 (67) 94 09/18/17 10:57 81 09/18/17 10:00 95.7 81 27 94 09/18/17 10:00 81 09/18/17 09:35 95.7 87 30 101/63 (76) 95 09/18/17 09:35 87 09/18/17 09:15 95.7 79 30 107/62 (77) 95 09/18/17 09:15 79 09/18/17 09:00 84 09/18/17 09:00 95.7 84 27 107/66 (80) 94 09/18/17 08:48 96 Nasal Cannula 2.00 09/18/17 08:45 79 09/18/17 08:45 95.9 79 26 101/55 (70) 94 09/18/17 08:30 78 09/18/17 08:30 95.9 78 26 99/54 (69) 94 09/18/17 08:24 79 09/18/17 08:24 95.9 79 25 97/51 (66) 95 09/18/17 08:15 95.9 86 29 102/57 (72) 96 09/18/17 08:15 86 09/18/17 08:11 79 09/18/17 08:11 95.9 79 29 101/56 (71) 96 -: 09/18/17 0626 09/18/17 0626 Microbiology 09/18/17 Aerobic Blood Culture, Received Pending 09/18/17 Anaerobic Blood Culture, Received Pending Physical Exam General Appearance: Pale Neck Neck Exam: Neck Supple Pulmonary Resp Exam: Decreased Bases Cardiology CV Exam: Regular Gastrointestinal/Abdomen GI Exam: Soft, Non-Tender, Distended, Bowel Sounds Hypoactive Integumentary Skin Exam: Ulcer(s) Extremeties Extremities Exam: Pitting Edema, Dependent Edema Neurologic Neuro Exam: Alert, Awake, Oriented Assessment/Plan Problem List: (1) Acute renal failure ICD Codes: N17.9 - Acute kidney failure, unspecified Plan: This is likely due to underlying endocarditis and severe infection Continue to monitor urine output Agree with bicarbonate drip Patient is dehydrated/ATN Albumin 25 g IV every 6 hourly as ordered Received Lasix around midnight 20 mg IV urine output slightly improved Continue with diuretic Lasix 20 mg IV every 6 hourly Bicarbonate decrease She has anasarca IV fluids cut back Order ultrasound abdomen look for ascites and assess kidney disease Follow BMP Check urine eosinophils, Na, creatinine (2) Endocarditis ICD Codes: I38 - Endocarditis, valve unspecified Status: Acute Plan: Due to IVDA (3) Severe sepsis ICD Codes: A41.9 - Sepsis, unspecified organism; R65.20 - Severe sepsis without septic shock Status: Acute Plan: Staph aureus septicemia Azalea Gillette MD September 19, 2017 08:02
[2017-09-19] MEDS: FUROSEMIDE 20 MG/2 ML VIAL IV PUSH SCH ×3 (09:42→17:37)
--- NOTE | 2017-09-19 10:23 | HHI.IDPN ---
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 Patient also had another admission in July, and at that time her blood cultures grew methicillin sensitive staph aureus. She signed out AGAINST MEDICAL ADVICE again at that time. When she came in this time, her CBC showed pancytopenia. CT of the chest showed evidence of multiple pulmonary septic emboli. 2 blood cultures done are now showing staph aureus. She was also hypotensive, and also had an elevated creatinine. Her urine output has been low. CT of the head did not show any significant abnormality. CT of the abdomen and pelvis showed splenomegaly. Patient currently still lethargic, and moaning. She is complaining of pain throughout her whole body. She is on Celso-Synephrine. Infectious disease consultation has been requested to evaluate the patient. Notes reviewed D/W RN Temps low grade Off pressors UO slightly better No labs yet - refused blood draw Still C/O pain everywhere BC with MSSA Creatinine rising Platelets worse Has DIC No bleeding Has vaginal discharge - neg trich, neg GC, neg BV, neg Chlam Antibiotics Vancomycin Oxacillin Levaquin Current Medications Medications (Trade) Dose Ordered Sig/Amy Route Start Time Stop Time Status Last Admin (NS Flush) 2 ml UNSCH PRN IV FLUSH 09/16/17 17:00 (NS Flush) 2 ml BID IV FLUSH 09/16/17 21:00 09/19/17 07:45 (Pepcid Inj) 10 mg Q12HR IV PUSH 09/16/17 21:00 09/19/17 07:45 (Duoneb Neb) 1 ampule Q6HR NEB INH 09/16/17 22:00 09/19/17 08:32 (Albuterol Neb) 2.5 mg Q2HR NEB PRN INH 09/16/17 17:00 ([facility] Nursing Information) 1 [id number] XX 09/16/17 17:00 09/16/17 20:22 (Chlorhexidine 2% Cloth) 3 pack Taper DAILY@04 TOP 09/17/17 04:00 09/13/18 03:59 09/19/17 04:00 (Chlorhexidine 2% Cloth) 3 pack UNSCH PRN TOP 09/16/17 17:00 (Paula-Colace) 1 tab BID PO 09/16/17 21:00 09/19/17 07:45 (Milk Of Magnesia Liq) 30 ml Q12H PRN PO 09/16/17 17:00 (Senokot) 17.2 mg Q12H PRN PO 09/16/17 17:00 09/19/17 09:43 (Dulcolax Supp) 10 mg DAILY PRN RECTAL 09/16/17 17:00 (Lactulose Liq) 30 ml DAILY PRN PO 09/16/17 17:00 09/19/17 07:45 (Phenergan Inj) 25 mg Q6H PRN IM 09/16/17 17:00 (Percocet 10-325 Mg) 1 tab Q4H PRN PO 09/17/17 08:30 09/19/17 06:32 (Dolophine) 10 mg DAILY PO 09/17/17 09:00 09/19/17 07:45 Sodium Bicarbonate 150 meq/Sterile Water 1,000 ml @ 75 mls/hr [id number] IV 09/17/17 15:00 09/18/17 23:22 Oxacillin Sodium 2 gm/Sodium Chloride 100 ml @ 200 mls/hr Q4H IV 09/18/17 12:00 09/19/17 07:45 (Levaquin) 500 mg Q48H PO 09/18/17 11:00 09/18/17 11:21 Albumin Human 100 ml @ 60 mls/hr Q6HR IV 09/18/17 12:00 09/19/17 05:33 (Lasix Inj) 20 mg Q6HR IV PUSH 09/19/17 08:15 09/19/17 09:42 Lines Line no evidence of infection Past Medical History Hepatitis C Tricuspid valve endocarditis Group A strep sepsis MSSA sepsis Known active IV drug use Allergies: Coded Allergies: No Known Allergies (Unverified Allergy, Unknown, 08/13/17) Objective . Vital Signs Date Time Temp Pulse Resp B/P (MAP) Pulse Ox O2 Delivery O2 Flow Rate FiO2 09/19/17 08:32 97 09/19/17 06:00 94 09/19/17 04:00 89 09/19/17 04:00 97.6 95 24 107/52 (70) 93 09/19/17 02:00 98 09/19/17 00:00 102 09/19/17 00:00 98.0 102 22 103/56 (72) 93 09/18/17 22:00 98 09/18/17 21:22 95 21 09/18/17 20:00 95 09/18/17 20:00 97.8 95 22 109/74 (86) 94 09/18/17 18:00 95 09/18/17 16:00 91 09/18/17 16:00 94.6 91 26 94 09/18/17 15:00 90 09/18/17 14:00 81 09/18/17 12:00 85 09/18/17 12:00 97.3 85 26 95 09/18/17 10:57 95.9 81 24 94/54 (67) 94 09/18/17 10:57 81 . Laboratory Tests Test 09/18/17 06:26 White Blood Count 4.6 TH/MM3 Red Blood Count 3.46 MIL/MM3 Hemoglobin 9.5 GM/DL Hematocrit 27.9 % Mean Corpuscular Volume 80.7 FL Mean Corpuscular Hemoglobin 27.4 PG Mean Corpuscular Hemoglobin Concent 33.9 % Red Cell Distribution Width 18.5 % Platelet Count 16 TH/MM3 Mean Platelet Volume 10.1 FL CBC Comment AUTO DIFF Differential Total Cells Counted 100 Neutrophils % (Manual) 69 % Band Neutrophils % 16 % Lymphocytes % 14 % Monocytes % 1 % Neutrophils # (Manual) 3.9 TH/MM3 Differential Comment FINAL DIFF MANUAL Toxic Granulation 2+ Toxic Vacuolation PRESENT Platelet Estimate LOW Platelet Morphology Comment NORMAL Ovalocytes 1+ Audrey Cells 2+ Acanthocytes 1+ Blood Smear Pathologist Review Laboratory Tests Test 09/18/17 06:26 Blood Urea Nitrogen 49 MG/DL Creatinine 2.63 MG/DL Random Glucose 123 MG/DL Total Protein 5.0 GM/DL Albumin 1.1 GM/DL Calcium Level 6.9 MG/DL Alkaline Phosphatase 78 U/L Aspartate Amino Transf (AST/SGOT) 23 U/L Alanine Aminotransferase (ALT/SGPT) 10 U/L Total Bilirubin 0.8 MG/DL Sodium Level 140 MEQ/L Potassium Level 3.3 MEQ/L Chloride Level 108 MEQ/L Carbon Dioxide Level 18.3 MEQ/L Anion Gap 14 MEQ/L Estimat Glomerular Filtration Rate 21 ML/MIN Protein Corrected Calcium 8.0 MG/DL Total Creatine Kinase 9 U/L Microbiology Date/Time Source Procedure Growth Status 09/18/17 13:15 Blood Peripheral Aerobic Blood Culture Pending Received 09/18/17 13:15 Blood Peripheral Anaerobic Blood Culture Pending Received 09/16/17 15:30 Blood Peripheral Aerobic Blood Culture - Final Staphylococcus Aureus Complete 09/16/17 15:30 Anaerobic Blood Culture - Final Staphylococcus Aureus Complete 09/16/17 15:25 Blood Peripheral Aerobic Blood Culture - Preliminary Staphylococcus Aureus Resulted 09/16/17 15:25 Anaerobic Blood Culture - Final Staphylococcus Aureus Resulted 09/16/17 16:03 Urine Catheterized Urine Urine Culture - Final NO GROWTH IN 48 HOURS. Complete Imaging Last Impressions Chest X-Ray 09/16/17 1504 Signed Impressions: Service Date/Time: Saturday, September 16, 2017 15:28 - CONCLUSION: 1. Patchy bilateral lower lobe airspace disease, more prominent on the right. Findings are concerning for multilobar pneumonia or aspiration. Zenon Busch MD Head CT 09/16/17 0000 Signed Impressions: Service Date/Time: Saturday, September 16, 2017 17:56 - CONCLUSION: 1. No acute intracranial abnormality. 2. Left maxillary and sphenoid sinus mucosal disease. Zenon Busch MD Chest CT 09/16/17 0000 Signed Impressions: Service Date/Time: Saturday, September 16, 2017 18:04 - CONCLUSION: 1. Small bilateral pleural effusions with dense bilateral lower lobe airspace consolidation. 2. Numerous bilateral inflammatory pulmonary nodules including cavitary nodules in the apices bilaterally. Findings are consistent with septic emboli. Zenon Busch MD Abdomen/Pelvis CT 09/16/17 0000 Signed Impressions: Service Date/Time: Saturday, September 16, 2017 18:04 - CONCLUSION: 1. Limited examination due to paucity of peritoneal fat and patient's overlying arms. 2. Hepatosplenomegaly with small amount of ascites. 3. Small to moderate amount of colonic stool without evidence for bowel obstruction. Zenon Busch MD Physical Exam GENERAL: Awakens easily, not in distress, moans when touched SKIN: Warm and dry. No generalized rash, no ecchymoses and no evidence of embolic lesions. HEAD: Atraumatic. Normocephalic. No temporal wasting, or tenderness. EYES: Miner conjunctiva. No petechia or hemorrhage. Pupils equal, round and reactive to light. Extraocular movements full and intact. No scleral icterus. No injection or drainage. EARS, NOSE AND THROAT: Nose without bleeding or purulent nasal discharge. No sinus tenderness. Very dry oral mucosa. NECK: Trachea midline. Supple, no meningeal signs CARDIOVASCULAR: Regular rate and rhythm. No murmurs, rubs or gallops heard RESPIRATORY: Clear to auscultation. Breath sounds equal bilaterally. No rales , wheezing or rhonchi. Decreased breath sounds at the bases ABDOMEN: Distended, with diffuse abdominal tenderness, tympanitic on percussion. Bowel sounds present and normoactive. : Dan cath in place. L labia is swollen but not red EXTREMITIES: No clubbing, cyanosis. Has bilateral pitting pedal edema. Pain with any touching or movement of both lower extremity. Did not appreciate any erythema in any parts of her lower extremity. Well perfused and warm. NEUROLOGICAL: Lethargic, but does follow commands. Cranial nerves grossly intact. Motor not evaluated completely due to pain with any touching or movement of all her extremities PSYCHIATRIC: Lethargic, unable to fully assess LINE: No evidence of infection Assessment & Plan Remarks IMPRESSION Sepsis with shock, due to endocarditis - has MOSF - previously had GAS, then MSSA - now MSSA MSSA endocarditis - previous echo with veg in TV Has pulmonary septic emboli Has UTI Renal insufficiency Pancytopenia DIC Known very poor compliance to medical Rx RECOMMENDATION Stop Vanco Continue IV Oxacillin Continue Levaquin to have some pulmonary coverage Follow cultures Await echo Follow CBC Monitor bleeding Monitor progress She will need a course of IV antibiotics for her endocarditis D/W Milana Caruso MD September 19, 2017 10:23
[2017-09-19 10:52] LABS: HEMATOCRIT 24.7 % (35.0-46.0); HEMOGLOBIN 8.4 GM/DL (11.6-15.3); MEAN CORPUSCULAR HEMOGLOBIN 27.3 PG (27.0-34.0); MEAN CORPUSCULAR HGB CONC 34.1 % (32.0-36.0); MEAN PLATELET VOLUME 10.7 FL (7.0-11.0); PLATELET COUNT 27 TH/MM3 (150-450); RED BLOOD COUNT 3.08 MIL/MM3 (4.00-5.30); RED CELL DISTRIBUTION WIDTH 18.4 % (11.6-17.2); WHITE BLOOD COUNT 3.7 TH/MM3 (4.0-11.0)
[2017-09-19 10:55] LABS: INTERNATIONAL NORMALIZED RATIO 1.1 RATIO; PROTHROMBIN TIME - PATIENT 10.7 SEC (9.8-11.6)
[2017-09-19 11:13] LABS: ALBUMIN 1.7 GM/DL (3.4-5.0); ALT (GPT) 6 U/L (10-53); AST (GOT) 19 U/L (15-37); BICARBONATE 26.5 MEQ/L (21.0-32.0); BLOOD UREA NITROGEN 49 MG/DL (7-18); CALCIUM 7.5 MG/DL (8.5-10.1); CHLORIDE 103 MEQ/L (98-107); CREATININE 2.95 MG/DL (0.50-1.00); GLOMERULAR FILTRATION RATE 18 ML/MIN (>89); GLUCOSE,RANDOM 99 MG/DL (74-106); SODIUM (NA) 140 MEQ/L (136-145)
[2017-09-19 11:15] LABS: ALKALINE PHOSPHATASE 86 U/L (45-117); TOTAL BILIRUBIN ADULT 0.9 MG/DL (0.2-1.0); TOTAL PROTEIN 5.6 GM/DL (6.4-8.2)
--- NOTE | 2017-09-19 11:15 | RADRPT ---
EXAM DATE: 09/19/2017 11:05 AM EDT AGE/SEX: 37 years / Female INDICATIONS: Abdominal pain. Acute renal failure. Possible ascites. CLINICAL DATA: This is the patient's initial encounter. Patient reports that signs and symptoms have been present for 2 days and indicates a pain score of 8/10. MEDICAL/SURGICAL HISTORY: Hepatitis C. HIV. Seizures. Headaches. Depression. Anxiety. Pulmonar y embolism. MRSA. None. [place] [facility] [place]AST, 09/16/2017. . No external comparison. MEASUREMENTS: Liver:__ 20.2 cm. Common Bile Duct:___ 6mm. Right Kidney:___12.4 x 6.0 x 5.3 cm . Left Kidney:___14.1 x 6.8 x 4.9 cm . Spleen:___22.0 . Aorta: The proximal portion measures 2.4 cm maximal. FINDINGS: Liver: The liver is diffusely enlarged with increased echogenicity. No dilated biliary ducts. There is a small amount of ascites around the liver. Portal Vein: Hepatopedal flow seen in portal vein. Common Duct: No intraluminal mass or stone visualized. Gallbladder: No definite stones are seen in the gallbladder. There is some thickening of the gallblad kelly wall at 7 mm. There is a trace of fluid around the gallbladder.. Pancreas: The visualized portions are within normal limits. Right Kidney: No mass or hydronephrosis. Left Kidney: No mass or hydronephrosis. Ascites: There is a small amount of ascites in the upper abdomen. Pleural Effusion: Small bilateral effusions. Spleen: Several hypoechoic densities are seen in the spleen. They measure approximately 2.2 to 3 cm. The spleen is diffusely enlarged. There are some granulomas in the spleen. There is a splenule measu ring approximately 3.3 cm in the splenic hilum. Aorta: Non aneurysmal. IVC: Within normal limits. CONCLUSION: 1. Diffusely enlarged liver with increased echogenicity suggestive of fatty infiltration and/or hepa tocellular disease. 2. Small amount of ascites in the upper abdomen. 3. No definite gallstones. There is thickening of the gallbladder wall at 7 mm. 4. The spleen is diffusely enlarged with several hypoechoic densities within the spleen. There are s plenic granulomas present. Electronically signed by: Ted Colbert MD 09/19/2017 11:13 AM EDT
--- NOTE | 2017-09-19 11:24 | RADRPT ---
EXAM DATE: 09/19/2017 11:09 AM EDT AGE/SEX: 37 years / Female INDICATIONS: Bilateral leg edema and pain. CLINICAL DATA: This is the patient's initial encounter. Patient reports that signs and symptoms have been present for 1 day and indicates a pain score of 8/10. MEDICAL/SURGICAL HISTORY: Hepatitis C. HIV. Seizures. Headaches. Depression. Anxiety. Pulmonar y embolism. MRSA. None. COMPARISON: No prior [facility] exams available for comparison. No external comparison. TECHNIQUE: Venous ultrasound of both lower extremities was performed from the inguinal ligament to t he proximal calf. Real-time, color Doppler and spectral tracing, compression and augmentation techni ques were used. FINDINGS: Right Leg: There is normal compressibility of the deep venous system from the inguinal region to the proximal calf. No echogenic clot is seen in the lumen of the common femoral, femoral, popliteal, an d posterior tibial veins. There is a normal response of the venous system to proximal and distal aug mentation and respiration. There is edema in the subcutaneous soft tissues. Left Leg: There is normal compressibility of the deep venous system from the inguinal region to the proximal calf. No echogenic clot is seen in the lumen of the common femoral, femoral, popliteal, and posterior tibial veins. There is a normal response of the venous system to proximal and distal augm entation and respiration. There is edema in the subcutaneous soft tissues. CONCLUSION: 1. No evidence of DVT. Electronically signed by: Ted Colbert MD 09/19/2017 11:23 AM EDT
--- NOTE | 2017-09-19 11:25 | RADRPT ---
EXAM DATE: 09/19/2017 11:10 AM EDT AGE/SEX: 37 years / Female INDICATIONS: Bilateral arm swelling. CLINICAL DATA: This is the patient's initial encounter. Patient reports that signs and symptoms have been present for 1 day and indicates a pain score of 8/10. MEDICAL/SURGICAL HISTORY: Hepatitis C. HIV. Seizures. Headaches. Depression. Anxiety. Pulmonar y embolism. MRSA. None. COMPARISON: No prior [place] exams available for comparison. No external comparison. FINDINGS: Right Upper Extremity: There is spontaneous flow documented in the brachial, basilic, cephalic, axil marva, and subclavian veins. The vessels are compressible and augmentation response is documented. N o filling defects are seen. The flow is phasic with respiration. Direction of flow in the jugular v ein is caudal. Left Upper Extremity: There is spontaneous flow documented in the brachial, basilic, cephalic, axill francisco, and subclavian veins. The vessels are compressible and augmentation response is documented. No filling defects are seen. The flow is phasic with respiration. Direction of flow in the jugular ve in is caudal. CONCLUSION: 1. No evidence of DVT. Electronically signed by: Ted Colbert MD 09/19/2017 11:24 AM EDT
[2017-09-19 12:20] LABS: CREATININE, RANDOM URINE 54.8 MG/DL
[2017-09-19 12:36] LABS: BANDS 2 % (0-6); LYMPHOCYTES 12 % (9-44); MONOCYTES 3 % (0-8); NEUTROPHIL # MANUAL DIFF 3.1 TH/MM3 (1.8-7.7); OVALOCYTES 1+ (NORMAL); POLYS (SEG NEUTROPHILS) 83 % (16-70)
--- NOTE | 2017-09-19 15:00 | HHI.CCPN ---
Subjective Remarks/Hospital Course 09/16: 37-year-old female with past medical history of IV drug use, cocaine abuse , tricuspid valve endocarditis, hepatitis C who was brought to [facility] emergency department via [facility] due to decreased level of consciousness. She has multiple admissions to [facility] related to endocarditis including 07/13-07/18 (group B strep bacteremia), 08/20-08/27 (MSSA bactermia), -09/09 (MSSA bacteremia). On each occasion, she left AMA. Echo from 09/08/17 demonstrated ejection fraction of 50%, mild AI, moderate MR, moderate TR. She has a tricuspid valve vegetation. Her temp is 99.9. She is pancytopenic with white blood cell count of 3.3, platelets 41, hemoglobin 7.1. She has acute kidney injury with creatinine of 2.15. AST is elevated. She received 500 mL of fluid per EVAC and an additional 3 L normal saline bolus in the emergency department. She received vancomycin, Zosyn, calcium. [facility] was consulted for admission. CT scans have been ordered but were pending at the time of admission. 09/17: Resting in bed. Complaining of generalized pain Subjective: 09/18 Off neosynephrine. Platelet count down to 16, labs c/w DIC. No active bleeding. She is complaining of pain "everywhere" particularly [her buttocks] . Oliguric despite large volume fluids. 09/19: Laying in bed this morning at the time of my evaluation. Not in any acute distress. Complains of pain all the time. Demanding narcotics. Had a large BM later today. Objective Vital Signs Date Time Temp Pulse Resp B/P (MAP) Pulse Ox O2 Delivery O2 Flow Rate FiO2 09/19/17 12:15 90 09/19/17 12:00 96.8 28 92 09/19/17 09:47 121/73 (89) 09/18/17 21:22 21 09/18/17 08:48 Nasal Cannula 2.00 Intake and Output 09/19/17 09/19/17 09/19/17 07:59 15:59 23:59 Intake Total 1170 ml Output Total 300 ml Balance 870 ml Result Diagram: 09/19/17 1025 09/19/17 1025 Other Results Microbiology Date/Time Source Procedure Growth Status 09/16/17 15:30 Blood Peripheral Aerobic Blood Culture - Final Staphylococcus Aureus Complete 09/16/17 15:30 Anaerobic Blood Culture - Final Staphylococcus Aureus Complete 09/16/17 15:25 Blood Peripheral Aerobic Blood Culture - Final Staphylococcus Aureus Complete 09/16/17 15:25 Anaerobic Blood Culture - Final Staphylococcus Aureus Complete 09/16/17 16:03 Urine Catheterized Urine Urine Culture - Final NO GROWTH IN 48 HOURS. Complete Objective Remarks GENERAL: Under nourished ill-appearing disheveled female who is moaning in pain. SKIN: Warm and dry. There are track christina present on her bilateral arms and anterior shins. There is a 3 cm wound over the medial aspect of her right osorio where there is an abscess that I had expressed pus out of on admission but now no additional purulence expressed. There is a 3 cm wound over the medial aspect of left lower leg with some serous drainage. HEAD: Atraumatic. Normocephalic. EYES: Pupils equal and round, 2 mm react. No scleral icterus. Bilateral conjunctival injection. ENT: No nasal bleeding or discharge. Mucous membranes moist. NECK: Trachea midline. CARDIOVASCULAR: Regular rate and rhythm. 3out of 6 systolic murmur left lower sternal border RESPIRATORY: Mildly tachypneic but no accessory muscle use. Sounds are diminished bibasilar GASTROINTESTINAL: Abdomen soft, she grimaces to palpation throughout abdomen, nondistended, hypoactive bowel sounds. +palpable hepatomegaly. : Labia majora are diffusely edematous. There is not erythema or induration, appears to be dependent edema. There is large amount of white vaginal discharge. There is no perirectal erythema, swelling or e/o perirectal abscess on digital exam. MUSCULOSKELETAL: Extremities without clubbing, cyanosis. Edema bilateral hands and 1+ bipedal edema, diffuse edema of LUE. NEUROLOGICAL: Awake and alert. Moaning and complaining of pain. Knows it is 2018 and knows she is at [facility].. No obvious cranial nerve deficits. Motor grossly within normal limits. A/P Assessment and Plan NEURO: Acute encephalopathy, secondary to sepsis improved. IV drug use Opioid dependent Benzodiazepine abuse Cocaine abuse Obtained CT brain - no acute abnormality. Left maxillary and sphenoid sinus disease On methadone 10 mg daily and Percocet 10/325 mg p.o. every 4 hourly as needed for pain and to avoid withdrawal RESP: Septic pulmonary emboli Nasal cannula wean as tolerated ABG demonstrates no hypercapnia. Will monitor for airway protection CV: Tricuspid valve vegetation with severe TR Endocarditis Severe sepsis with multiorgan failure HAs received large volume fluid resuscitation On Bicarb drip at 150 ml/hr but is oliguric with increasing creatinine. Was on neosynephrine, now weaned off. Will back off rate of bicarb drip now. With severe TR, hepatosplenomegaly, peripheral edema, suspect RV dysfunction will be the issue and will need to initiate Lasix, HD if no response. GI: Abdominal pain Hepatosplenomegaly Moderate protein energy malnutrition P.o. diet as tolerated CT abdomen and pelvis - Hepatosplenomegaly with small ascites. Moderate amount of stool in the colon without evidence of bowel obstruction. FEN/RENAL: Acute kidney injury Hypokalemia Dan in place. Monitor and intake and output hourly CPK is 24. F/u FeNa and urine eos ordered per nephrology. bicarb drip for metabolic acidosis. Nephrology following. ID: Severe sepsis Tricuspid valve endocarditis with medical nonadherence and ongoing IV drug use Right lower leg abscess - spontaneously draining and pus expressed in ED. Blood culture taph aureus Blood culture 09/18pending Urine culture 09/16no growth Continue antibiotics per ID: Amoxicillin, Levaquin. ID following, Dr. Harp Vaginal edema appears dependent, no cellulitis. Vaginal discharge - vaginal swab sent for GC/Chl and wet prep HEME: Pancytopenia on admission Now worsening thrombocytopenia DIC Transfusion of 2 units packed red cells per ED. In DIC No indication for platelets or FFP as she does not appear to be actively bleeding. Platelets continuing to drop. Will check ultrasound to assess for DVT as source of platelet consumption which could benefit from heparin despite low counts as DIC also prothrombotic. Hematology consulted. ENDO: Euglycemic PROPH: SCDs for DVT prophylaxis. We will hold off on pharmacologic DVT prophylaxis at this point due to thrombocytopenia. Famotidine for stress ulcer prophylaxis ACCESS: 2 large-bore peripheral IVs are in place. She is currently not requiring vasopressors. We will place CVL if needed. Patient has opioid dependence and ongoing IV drug use. Her opioid addiction has contributed to medical nonadherence and therefore she has had recurrent episodes of bacteremia and now 1.4 x0.5 cm mobile vegetation on tricuspid valve resulting in moderate to severe TR. Recently she has had multiple admissions but has left AMA without adherence to medical management. She is now pancytopenic with multiorgan failure. While acute treatment may result in improvement in ESTEFANIA, her prognosis appears poor. Patient has remained off pressors for more than 24 hours. Will consult and transfer to hospitalist service and transfer out of ICU. Robert Solorio MD September 19, 2017 15:00
[2017-09-19] MEDS: FAMOTIDINE 20 MG TAB PO SCH (20:10)
[2017-09-19] MEDS ORDERED: ADENOSINE IV SOLN 3 MG/ML 2 ML VIAL ONE (20:26)
--- NOTE | 2017-09-19 20:34 | PD.PROCEDR ---
Procedure Note Procedure Date: Procedure: Cardioversion Indication: SVT Details of procedure: Pt developed SVT. She was on telemetry and continuous pulse ox. She was placed on Zoll monitor. She was administered adenosine 60 mg IV. She converted to sinus rhythm with rate in the 80s. She is normotensive. Stat labs were obtained and pertinent electrolytes were within normal limits. She was initiated on metoprolol 12.5 mg p.o. twice daily. Tanya Mcnulty MD September 19, 2017 20:34
[2017-09-19 23:32] LABS: BICARBONATE 29.6 MEQ/L (21.0-32.0); CALCIUM 7.2 MG/DL (8.5-10.1); CREATININE 3.04 MG/DL (0.50-1.00); MAGNESIUM 2.1 MG/DL (1.5-2.5); PHOSPHORUS 4.4 MG/DL (2.5-4.9)
[2017-09-19 23:55] LABS: TOTAL PROTEIN 5.6 GM/DL (6.4-8.2)
[2017-09-20] VITALS (9 sets, daily range): BP systolic 110–142; BP diastolic 70–84; PULSE 69–193; RESP 17–29; TEMP 97.6–97.9; O2SAT 94–97
[2017-09-20] MEDS: FUROSEMIDE 20 MG/2 ML VIAL IV PUSH SCH ×4 (00:21→18:31)
[2017-09-20] MEDS: ALBUMIN 25% INJ 100 ML IV SCH ×4 (00:21→17:50)
[2017-09-20] MEDS: OXACILLIN INJ 2 GM in SODIUM CHLORIDE 0.9% INJ 100 ML IV SCH ×6 (00:21→20:15)
[2017-09-20] MEDS: PROMETHAZINE INJ 25 MG/ML VIAL IM PRN ×2 (00:31→04:33)
[2017-09-20] MEDS: METOPROLOL TARTRATE 25 MG TAB PO SCH ×3 (00:31→20:15)
[2017-09-20] MEDS: oxyCODONE/ACETAMINOPHEN 10 MG/325 MG TAB PO PRN ×5 (00:32→20:17)
[2017-09-20] MEDS: CHLORHEXIDINE GLUCONATE 2 % 1 PACK (2 CLOTHS) TOP SCH (04:00)
[2017-09-20] MEDS: RESP: ALBUTEROL 2.5 MG/IPRATROPIUM 0.5 MG NEB (SCH) INH ×4 (04:24→21:24)
[2017-09-20] MEDS: SODIUM BICARBONATE 8.4% INJ 150 MEQ in WATER STERILE FOR INJ 850 ML IV SCH ×2 (05:27→19:52)
[2017-09-20] MEDS: SODIUM CHLORIDE 0.9% FLUSH 10 ML FLUSH IV FLUSH SCH ×2 (09:00→20:15)
--- NOTE | 2017-09-20 09:38 | HHI.PR ---
Subjective Remarks F/u on AMS. Nursing reports that the patient had adenosine intravenously pushed yesterday for heart rate past the 170s which responded well. Otherwise no medical deterioration since last night. Patient herself is sleeping heavily and is hard to arouse but eventually does wake up and says she just feels tired. Objective Vital Signs Date Time Temp Pulse Resp B/P (MAP) Pulse Ox O2 Delivery O2 Flow Rate FiO2 09/20/17 04:00 80 09/20/17 04:00 81 18 142/84 (103) 96 09/20/17 00:00 96.1 81 18 127/82 (97) 94 09/20/17 00:00 81 09/19/17 23:00 96.8 88 19 92 09/19/17 22:00 97.3 97 22 117/73 (88) 91 09/19/17 21:00 97.9 106 25 96 09/19/17 20:29 80 09/19/17 20:12 191 09/19/17 20:00 193 09/19/17 20:00 97.9 193 39 128/75 (92) 98 09/19/17 16:00 99.5 121 34 143/76 (98) 90 09/19/17 16:00 121 09/19/17 15:18 116 09/19/17 14:00 108 09/19/17 12:15 90 09/19/17 12:00 90 09/19/17 12:00 96.8 90 28 92 09/19/17 11:45 91 09/19/17 11:30 102 09/19/17 11:15 92 09/19/17 11:00 89 09/19/17 10:45 92 09/19/17 10:30 89 09/19/17 10:15 91 09/19/17 10:00 89 09/19/17 10:00 96.8 89 27 92 09/19/17 09:47 96.4 94 37 121/73 (89) 92 09/19/17 09:47 94 09/19/17 09:45 96 I/O 09/19/17 09/19/17 09/19/17 09/20/17 09/20/17 09/20/17 07:00 15:00 23:00 07:00 15:00 23:00 Intake Total 2170 ml 200 ml 1640 ml 1272 ml Output Total 300 ml 750 ml 800 ml Balance 1870 ml 200 ml 890 ml 472 ml Intake Oral 650 ml 540 ml IV Total 1520 ml 200 ml 1100 ml 1272 ml Output Urine Total 300 ml 750 ml 800 ml # Bowel Movements 0 2 0 Result Diagram: 09/19/17 1025 09/19/17 4367 Objective Remarks Lying in bed, sleeping, hard to arouse but does wake up to her name Heart sounds are regular rate rhythm, 4 out of 6 ejection murmur Moderate bilateral lower extremity edema A/P Assessment and Plan 09/16: 37-year-old female with past medical history of IV drug use, cocaine abuse , tricuspid valve endocarditis, hepatitis C who was brought to [facility] emergency department via EVAC due to decreased level of consciousness. She has multiple admissions to [facility] related to endocarditis including 07/13-07/18 (group B strep bacteremia), 08/20-08/27 (MSSA bactermia), -09/09 (MSSA bacteremia). On each occasion, she left AMA. Echo from 09/08/17 demonstrated ejection fraction of 50%, mild AI, moderate MR, moderate TR. She has a tricuspid valve vegetation. Her temp is 99.9. She is pancytopenic with white blood cell count of 3.3, platelets 41, hemoglobin 7.1. She has acute kidney injury with creatinine of 2.15. AST is elevated. She received 500 mL of fluid per EVAC and an additional 3 L normal saline bolus in the emergency department. She received vancomycin, Zosyn, calcium. CM was consulted for admission. CT scans have been ordered but were pending at the time of admission. Acute encephalopathy -Improv since admission, likely multifactorial secondary to sepsis and drug abuse On methadone 10 mg daily and Percocet 10/325 mg p.o. every 4 hourly as needed for pain and to avoid withdrawal Severe sepsis with multiorgan failure On Bicarb drip at 150 ml/hr but is oliguric with increasing creatinine Urine output is steadily showing improvement per nursing charts Septic pulmonary emboli Nasal cannula wean as tolerated IV oxacillin Tricuspid valve vegetation with severe TR Endocarditis Right lower leg abscess - spontaneously draining and pus expressed in ED. IV oxacillin per infectious disease Abdominal pain Hepatosplenomegaly Hep C noted on serology P.o. diet as tolerated CT abdomen and pelvis - Hepatosplenomegaly with small ascites. Moderate amount of stool in the colon without evidence of bowel obstruction. Acute kidney injury Hypokalemia worsening RF; may need HD Dan in place. Monitor and intake and output hourly bicarb drip for metabolic acidosis. Nephrology following. Vaginal discharge - neg wet prep/GC chlamydia; no further workup needed Pancytopenia on admission Now worsening thrombocytopenia DIC - treat underlying infx as above Hematology following We will hold off on pharmacologic DVT prophylaxis at this point due to thrombocytopenia. Famotidine for stress ulcer prophylaxis Patient has opioid dependence and ongoing IV drug use. Her opioid addiction has contributed to medical nonadherence and therefore she has had recurrent episodes of bacteremia and now 1.4 x0.5 cm mobile vegetation on tricuspid valve resulting in moderate to severe TR. Recently she has had multiple admissions but has left AMA without adherence to medical management. She is now pancytopenic with multiorgan failure. While acute treatment may result in improvement in ESTEFANIA, her prognosis appears poor. Bo Olvera MD September 20, 2017 09:38
[2017-09-20] MEDS: DOCUSATE SODIUM 50 MG/SENNA 8.6 MG TAB PO SCH ×2 (09:57→20:15)
[2017-09-20] MEDS: METHADONE HCL 10 MG TAB PO SCH (09:57)
[2017-09-20] MEDS: FAMOTIDINE 20 MG TAB PO SCH ×2 (09:57→20:14)
[2017-09-20 11:44] LABS: ALKALINE PHOSPHATASE 59 U/L (45-117); ALT (GPT) LESS THAN 6 U/L (10-53); AST (GOT) 19 U/L (15-37); BICARBONATE 27.1 MEQ/L (21.0-32.0); BLOOD UREA NITROGEN 51 MG/DL (7-18); CALCIUM 7.2 MG/DL (8.5-10.1); CALCIUM-PROTEIN CORRECTED 8.2 MG/DL (8.5-10.1); CHLORIDE 101 MEQ/L (98-107); CREATININE 3.25 MG/DL (0.50-1.00); GLOMERULAR FILTRATION RATE 16 ML/MIN (>89); GLUCOSE,RANDOM 92 MG/DL (74-106); SODIUM (NA) 141 MEQ/L (136-145); TOTAL BILIRUBIN ADULT 0.6 MG/DL (0.2-1.0); TOTAL PROTEIN 5.3 GM/DL (6.4-8.2)
[2017-09-20] MEDS: LEVOFLOXACIN 500 MG TAB PO SCH (12:32)
[2017-09-20 16:02] LABS: AUTOMATED NEUTROPHIL # 4.3 TH/MM3 (1.8-7.7); BASOPHIL % 0.5 % (0.0-2.0); EOSINOPHIL % 0.6 % (0.0-4.0); HEMATOCRIT 29.4 % (35.0-46.0); HEMOGLOBIN 9.8 GM/DL (11.6-15.3); LYMPH % 20.4 % (9.0-44.0); LYMPHOCYTE # 1.2 TH/MM3 (1.0-4.8); MEAN CELL VOLUME 79.9 FL (80.0-100.0); MEAN CORPUSCULAR HEMOGLOBIN 26.7 PG (27.0-34.0); MEAN CORPUSCULAR HGB CONC 33.4 % (32.0-36.0); MEAN PLATELET VOLUME 10.8 FL (7.0-11.0); MONO % 4.2 % (0.0-8.0); MONOCYTE # 0.2 TH/MM3 (0-0.9); NEUT % 74.3 % (16.0-70.0); PLATELET COUNT 44 TH/MM3 (150-450); RED BLOOD COUNT 3.68 MIL/MM3 (4.00-5.30); RED CELL DISTRIBUTION WIDTH 18.3 % (11.6-17.2); WHITE BLOOD COUNT 5.8 TH/MM3 (4.0-11.0)
[2017-09-20 16:41] LABS: BANDS 3 % (0-6); LYMPHOCYTES 16 % (9-44); METAMYELOCYTES 1 % (0-1); MONOCYTES 3 % (0-8); NEUTROPHIL # MANUAL DIFF 4.6 TH/MM3 (1.8-7.7); POLYS (SEG NEUTROPHILS) 76 % (16-70)
[2017-09-20 16:42] LABS: OVALOCYTES 1+ (NORMAL)
--- NOTE | 2017-09-20 16:48 | PD.ONC.PN ---
Subjective Subjective Remarks Resting in bed. Drowsy awakens with stimuli. Answers questions appropriately. Objective Data Date Time Temp Pulse Resp B/P (MAP) Pulse Ox O2 Delivery O2 Flow Rate FiO2 09/20/17 16:00 81 09/20/17 14:00 76 09/20/17 12:00 97.8 77 29 126/81 (96) 97 09/20/17 12:00 77 09/20/17 11:57 25 09/20/17 11:57 25 09/20/17 10:00 69 09/20/17 08:00 71 09/20/17 08:00 97.6 71 17 110/70 (83) 94 09/20/17 04:00 80 09/20/17 04:00 81 18 142/84 (103) 96 09/20/17 00:00 96.1 81 18 127/82 (97) 94 09/20/17 00:00 81 09/19/17 23:00 96.8 88 19 92 09/19/17 22:00 97.3 97 22 117/73 (88) 91 09/19/17 21:00 97.9 106 25 96 09/19/17 20:29 80 09/19/17 20:12 191 09/19/17 20:00 193 09/19/17 20:00 97.9 193 39 128/75 (92) 98 09/20/17 09/20/17 09/20/17 07:00 15:00 23:00 Intake Total 1272 ml Output Total 800 ml Balance 472 ml Result Diagram: 09/20/17 1505 09/20/17 1107 Laboratory Results Laboratory Tests Test 09/19/17 22:36 09/20/17 11:07 09/20/17 15:05 Blood Urea Nitrogen 51 MG/DL 51 MG/DL Creatinine 3.04 MG/DL 3.25 MG/DL Random Glucose 83 MG/DL 92 MG/DL Total Protein 5.6 GM/DL 5.3 GM/DL Calcium Level 7.2 MG/DL 7.2 MG/DL Phosphorus Level 4.4 MG/DL Magnesium Level 2.1 MG/DL Sodium Level 140 MEQ/L 141 MEQ/L Potassium Level 3.7 MEQ/L 5.4 MEQ/L Chloride Level 100 MEQ/L 101 MEQ/L Carbon Dioxide Level 29.6 MEQ/L 27.1 MEQ/L Anion Gap 10 MEQ/L 13 MEQ/L Estimat Glomerular Filtration Rate 17 ML/MIN 16 ML/MIN Protein Corrected Calcium 8.0 MG/DL 8.2 MG/DL Albumin 2.0 GM/DL Alkaline Phosphatase 59 U/L Aspartate Amino Transf (AST/SGOT) 19 U/L Alanine Aminotransferase (ALT/SGPT) LESS THAN 6 U/L Total Bilirubin 0.6 MG/DL White Blood Count 5.8 TH/MM3 Red Blood Count 3.68 MIL/MM3 Hemoglobin 9.8 GM/DL Hematocrit 29.4 % Mean Corpuscular Volume 79.9 FL Mean Corpuscular Hemoglobin 26.7 PG Mean Corpuscular Hemoglobin Concent 33.4 % Red Cell Distribution Width 18.3 % Platelet Count 44 TH/MM3 Mean Platelet Volume 10.8 FL Neutrophils (%) (Auto) 74.3 % Lymphocytes (%) (Auto) 20.4 % Monocytes (%) (Auto) 4.2 % Eosinophils (%) (Auto) 0.6 % Basophils (%) (Auto) 0.5 % Neutrophils # (Auto) 4.3 TH/MM3 Lymphocytes # (Auto) 1.2 TH/MM3 Monocytes # (Auto) 0.2 TH/MM3 Eosinophils # (Auto) 0.0 TH/MM3 Basophils # (Auto) 0.0 TH/MM3 CBC Comment AUTO DIFF Culture Results Microbiology Date/Time Source Procedure Growth Status 09/19/17 10:25 Blood Peripheral Aerobic Blood Culture - Preliminary NO GROWTH IN 1 DAY Resulted 09/19/17 10:25 Blood Peripheral Anaerobic Blood Culture - Preliminary NO GROWTH IN 1 DAY Resulted 09/18/17 13:15 Blood Peripheral Aerobic Blood Culture - Final Staphylococcus Aureus Resulted 09/18/17 13:15 Blood Peripheral Anaerobic Blood Culture - Preliminary NO GROWTH IN 2 DAYS Resulted Administered Medications Medications (Trade) Dose Ordered Sig/Amy Route PRN Reason Start Time Stop Time Status Last Admin Dose Admin Sodium Chloride (NS Flush) 2 ml BID IV FLUSH 09/16/17 21:00 09/19/17 20:11 Albuterol/ Ipratropium (Duoneb Neb) 1 ampule Q6HR NEB INH 09/16/17 22:00 09/19/17 08:32 Miscellaneous Information ([facility] [place] [facility]) 1 [id number] XX 09/16/17 17:00 09/16/17 20:22 Chlorhexidine Gluconate (Chlorhexidine 2% Cloth) 3 pack Taper DAILY@04 TOP 09/17/17 04:00 09/13/18 03:59 09/20/17 04:00 Senna/Docusate Sodium (Paula-Colace) 1 tab BID PO 09/16/17 21:00 09/20/17 09:57 Magnesium Hydroxide (Milk Of Magnesia Liq) 30 ml Q12H PRN PO Mild constipation 09/16/17 17:00 09/19/17 11:19 Sennosides (Senokot) 17.2 mg Q12H PRN PO Moderate constipation 09/16/17 17:00 09/19/17 09:43 Bisacodyl (Dulcolax Supp) 10 mg DAILY PRN RECTAL SEVERE CONSITIPATION 09/16/17 17:00 09/19/17 11:20 Lactulose (Lactulose Liq) 30 ml DAILY PRN PO SEVERE CONSITIPATION 09/16/17 17:00 09/19/17 07:45 Promethazine HCl (Phenergan Inj) 25 mg Q6H PRN IM NAUSEA/VOMITING 09/16/17 17:00 09/20/17 04:33 Oxycodone/ Acetaminophen (Percocet 10-325 Mg) 1 tab Q4H PRN PO pain scale 5-10 09/17/17 08:30 09/20/17 10:39 Methadone HCl (Dolophine) 10 mg DAILY PO 09/17/17 09:00 09/20/17 09:57 Sodium Bicarbonate 150 meq/Sterile Water 1,000 ml @ 75 mls/hr [id number] IV 09/17/17 15:00 09/20/17 05:27 Oxacillin Sodium 2 gm/Sodium Chloride 100 ml @ 200 mls/hr Q4H IV 09/18/17 12:00 09/20/17 13:19 Levofloxacin (Levaquin) 500 mg Q48H PO 09/18/17 11:00 09/20/17 12:32 Albumin Human 100 ml @ 60 mls/hr Q6HR IV 09/18/17 12:00 09/20/17 12:33 Furosemide (Lasix Inj) 20 mg Q6HR IV PUSH 09/19/17 08:15 09/20/17 13:19 Famotidine (Pepcid) 10 mg BID PO 09/19/17 21:00 09/20/17 09:57 Metoprolol Tartrate (Lopressor) 12.5 mg Q12HR PO 09/20/17 00:30 09/20/17 09:57 Objective Remarks GENERAL: Well-nourised, drowsy patient, ill appearing SKIN: Warm and dry. HEAD: Normocephalic. EYES: No scleral icterus. No injection or drainage. RESPIRATORY: No accessory muscle use. EXTREMITIES: No edema. MUSCULOSKELETAL: Adequate muscle tone. NEUROLOGICAL: No obvious focal deficit. Awake, alert, and oriented x3. PSYCHIATRIC: Appropriate mood and affect; insight and judgment normal. Assessment/Plan Assessment 1. Coagulopathy: resolving, due to DIC due to sepsis, endocarditis. 2. Thrombotypenia: improving, due to DIC, sepsis, endocarditis. Continue to follow CBC 3. Anemia: component of inflammatory anemia. 4. Endocarditis, sepsis: currently on antibiotic therapy. ID team following closely. Maki Izquierdo MD September 20, 2017 16:48
--- NOTE | 2017-09-20 16:57 | HHI.NPPN ---
Subjective History of Present Illness Patient is a 37-year-old with IVDA and endocarditis with acute renal failure Review of Systems General Constitutional: Fatigue Musculoskeletal MS: Pain/Stiffness Objective Data Data Vital Signs Date Time Temp Pulse Resp B/P (MAP) Pulse Ox O2 Delivery O2 Flow Rate FiO2 09/20/17 16:00 81 09/20/17 14:00 76 09/20/17 12:00 97.8 77 29 126/81 (96) 97 09/20/17 12:00 77 09/20/17 11:57 25 09/20/17 11:57 25 09/20/17 10:00 69 09/20/17 08:00 71 09/20/17 08:00 97.6 71 17 110/70 (83) 94 09/20/17 04:00 80 09/20/17 04:00 81 18 142/84 (103) 96 09/20/17 00:00 96.1 81 18 127/82 (97) 94 09/20/17 00:00 81 09/19/17 23:00 96.8 88 19 92 09/19/17 22:00 97.3 97 22 117/73 (88) 91 09/19/17 21:00 97.9 106 25 96 09/19/17 20:29 80 09/19/17 20:12 191 09/19/17 20:00 193 09/19/17 20:00 97.9 193 39 128/75 (92) 98 -: 09/20/17 1505 09/20/17 1107 Physical Exam General Appearance: Pale Neck Neck Exam: Neck Supple Pulmonary Resp Exam: Decreased Bases Cardiology CV Exam: Regular Gastrointestinal/Abdomen GI Exam: Soft, Non-Tender, Distended, Bowel Sounds Hypoactive Integumentary Skin Exam: Ulcer(s) Extremeties Extremities Exam: Pitting Edema, Dependent Edema Neurologic Neuro Exam: Alert, Awake, Oriented Assessment/Plan Problem List: (1) Acute renal failure ICD Codes: N17.9 - Acute kidney failure, unspecified Plan: This is likely due to underlying endocarditis and severe infection Continue to monitor urine output Agree with bicarbonate drip Patient is dehydrated/ATN Albumin 25 g IV every 6 hourly as ordered Received Lasix around midnight 20 mg IV urine output improved Continue with diuretic Lasix 20 mg IV every 6 hourly Potassium 5.4 given 1 dose of Kayexalate 15 g ultrasound abdomen small amount ascites kidney size normal he has hepatosplenomegaly possible cirrhosis Follow BMP (2) Endocarditis ICD Codes: I38 - Endocarditis, valve unspecified Status: Acute Plan: Due to IVDA (3) Severe sepsis ICD Codes: A41.9 - Sepsis, unspecified organism; R65.20 - Severe sepsis without septic shock Status: Acute Plan: Staph aureus septicemia Azalea Gillette MD September 20, 2017 16:57
[2017-09-20] MEDS ORDERED: SODIUM POLYSTYRENE SULFONATE SUSP 15 GM/60 ML CUP PO ONE (17:00)
[2017-09-21] VITALS (11 sets, daily range): BP systolic 121–155; BP diastolic 80–93; PULSE 65–84; RESP 22–30; O2SAT 92–98
[2017-09-21] MEDS: ALBUMIN 25% INJ 100 ML IV SCH ×4 (01:58→21:32)
[2017-09-21] MEDS: oxyCODONE/ACETAMINOPHEN 10 MG/325 MG TAB PO PRN ×3 (01:58→21:26)
[2017-09-21] MEDS: OXACILLIN INJ 2 GM in SODIUM CHLORIDE 0.9% INJ 100 ML IV SCH ×6 (01:59→21:32)
[2017-09-21] MEDS: FUROSEMIDE 20 MG/2 ML VIAL IV PUSH SCH ×4 (02:00→21:26)
[2017-09-21] MEDS: CHLORHEXIDINE GLUCONATE 2 % 1 PACK (2 CLOTHS) TOP SCH (04:00)
[2017-09-21] MEDS: PROMETHAZINE INJ 25 MG/ML VIAL IM PRN (05:29)
[2017-09-21] MEDS: DOCUSATE SODIUM 50 MG/SENNA 8.6 MG TAB PO SCH ×2 (07:47→21:00)
[2017-09-21] MEDS: FAMOTIDINE 20 MG TAB PO SCH ×2 (07:48→21:26)
[2017-09-21] MEDS: METHADONE HCL 10 MG TAB PO SCH (07:48)
[2017-09-21] MEDS: METOPROLOL TARTRATE 25 MG TAB PO SCH ×2 (07:48→21:27)
[2017-09-21] MEDS: SODIUM CHLORIDE 0.9% FLUSH 10 ML FLUSH IV FLUSH SCH ×2 (07:49→21:27)
--- NOTE | 2017-09-21 08:17 | EKG ---
Date Performed: 09/19/2017 Time Performed: 20:07:46 PTAGE: 37 years EKG: Probable supraventricular tachycardia. Poor R wave progression - probable normal variant Lo w QRS voltages in limb leads Abnormal ECG NO PREVIOUS TRACING DOCTOR: Vahid Allen Interpretating Date/Time 09/21/2017 08:13:31
--- NOTE | 2017-09-21 10:31 | HHI.PR ---
Objective Vital Signs Date Time Temp Pulse Resp B/P (MAP) Pulse Ox O2 Delivery O2 Flow Rate FiO2 09/21/17 04:00 84 09/21/17 02:00 82 09/21/17 00:00 76 09/20/17 20:00 80 09/20/17 19:20 97 21 09/20/17 18:31 27 09/20/17 16:00 97.9 81 26 139/77 (97) 94 09/20/17 16:00 81 09/20/17 14:00 76 09/20/17 12:00 97.8 77 29 126/81 (96) 97 09/20/17 12:00 77 09/20/17 11:57 25 I/O 09/20/17 09/20/17 09/20/17 09/21/17 09/21/17 09/21/17 07:00 15:00 23:00 07:00 15:00 23:00 Intake Total 1272 ml 750 ml 1248 ml Output Total 800 ml 1000 ml 1200 ml Balance 472 ml -250 ml 48 ml Intake Oral 550 ml 240 ml IV Total 1272 ml 200 ml 1008 ml Output Urine Total 800 ml 1000 ml 1200 ml # Bowel Movements 0 1 1 Result Diagram: 09/20/17 1505 09/20/17 1107 A/P Problem List: (1) Acute renal failure ICD Code: N17.9 - Acute kidney failure, unspecified (2) Endocarditis ICD Code: I38 - Endocarditis, valve unspecified Status: Acute (3) Septic pulmonary embolism ICD Code: I26.90 - Septic pulmonary embolism without acute cor pulmonale Status: Acute (4) Severe sepsis ICD Code: A41.9 - Sepsis, unspecified organism; R65.20 - Severe sepsis without septic shock Status: Acute (5) Multi-organ system dysfunction Status: Acute (6) Encephalopathy ICD Code: G93.40 - Encephalopathy, unspecified; R65.20 - Severe sepsis without septic shock Status: Acute Assessment and Plan Assessment and Plan 37-year-old female admitted with Severe Sepsis with shock and organ failure related to 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 Following renal function. Creatinine has worsened again. Etiology appears related to septic shock and septic emboli. Transfer out of ICU. Acute encephalopathy Narcotic Withdraw On methadone 10 mg daily Percocet 10/325 mg p.o. every 4 hourly as needed for pain/withdraw Severe sepsis with multiorgan failure Acute Renal Failure Continue Bicarb drip at 150 ml/hr Follow creatinine Nephrology following Dan in place Septic pulmonary emboli Follow pulse ox Oxygen as needed IV oxacillin Tricuspid valve vegetation with severe TR Endocarditis Right lower leg abscess (septic emboli) IV oxacillin ID Following Abdominal pain Hepatosplenomegaly Hep C noted on serology P.o. diet as tolerated Acute kidney injury Hypokalemia monitor and replace as needed Vaginal discharge Negative STD evaluation Follow clinically Pancytopenia Thrombocytopenia Possible DIC (resolved) Improving Follow CBC DVT Prophylaxis Bleed risk SCDs Tung Zarate MD September 21, 2017 10:31
[2017-09-21 11:27] LABS: AUTOMATED NEUTROPHIL # 4.5 TH/MM3 (1.8-7.7); BASOPHIL % 0.5 % (0.0-2.0); EOSINOPHIL % 0.4 % (0.0-4.0); HEMATOCRIT 30.3 % (35.0-46.0); HEMOGLOBIN 10.1 GM/DL (11.6-15.3); LYMPH % 14.5 % (9.0-44.0); LYMPHOCYTE # 0.8 TH/MM3 (1.0-4.8); MEAN CELL VOLUME 80.7 FL (80.0-100.0); MEAN CORPUSCULAR HGB CONC 33.4 % (32.0-36.0); MEAN PLATELET VOLUME 9.4 FL (7.0-11.0); MONO % 2.6 % (0.0-8.0); MONOCYTE # 0.1 TH/MM3 (0-0.9); PLATELET COUNT 25 TH/MM3 (150-450); RED BLOOD COUNT 3.76 MIL/MM3 (4.00-5.30); RED CELL DISTRIBUTION WIDTH 18.4 % (11.6-17.2); WHITE BLOOD COUNT 5.5 TH/MM3 (4.0-11.0)
[2017-09-21 11:49] LABS: ALBUMIN 2.8 GM/DL (3.4-5.0); ALKALINE PHOSPHATASE 68 U/L (45-117); ALT (GPT) LESS THAN 6 U/L (10-53); AST (GOT) 17 U/L (15-37); BICARBONATE 31.7 MEQ/L (21.0-32.0); BLOOD UREA NITROGEN 54 MG/DL (7-18); CHLORIDE 95 MEQ/L (98-107); CREATININE 3.38 MG/DL (0.50-1.00); GLOMERULAR FILTRATION RATE 15 ML/MIN (>89); GLUCOSE,RANDOM 89 MG/DL (74-106); PHOSPHORUS 5.6 MG/DL (2.5-4.9); SODIUM (NA) 139 MEQ/L (136-145); TOTAL BILIRUBIN ADULT 0.7 MG/DL (0.2-1.0); TOTAL PROTEIN 6.5 GM/DL (6.4-8.2)
[2017-09-21 12:16] LABS: OVALOCYTES 1+ (NORMAL); TEARDROP RBCS 1+ (NORMAL)
--- NOTE | 2017-09-21 12:21 | HHI.IDPN ---
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 Patient also had another admission in July, and at that time her blood cultures grew methicillin sensitive staph aureus. She signed out AGAINST MEDICAL ADVICE again at that time. When she came in this time, her CBC showed pancytopenia. CT of the chest showed evidence of multiple pulmonary septic emboli. 2 blood cultures done are now showing staph aureus. She was also hypotensive, and also had an elevated creatinine. Her urine output has been low. CT of the head did not show any significant abnormality. CT of the abdomen and pelvis showed splenomegaly. Patient currently still lethargic, and moaning. She is complaining of pain throughout her whole body. She is on Celso-Synephrine. Infectious disease consultation has been requested to evaluate the patient. Notes reviewed D/W RN Temps ok Up in chair, eating lunch BP ok UO better Creatinine rising Still C/O pain everywhere BC with MSSA Has DIC, numbers improving No bleeding Antibiotics Vancomycin Oxacillin Levaquin Current Medications Medications (Trade) Dose Ordered Sig/Amy Route Start Time Stop Time Status Last Admin (NS Flush) 2 ml UNSCH PRN IV FLUSH 09/16/17 17:00 (NS Flush) 2 ml BID IV FLUSH 09/16/17 21:00 09/19/17 07:45 (Pepcid Inj) 10 mg Q12HR IV PUSH 09/16/17 21:00 09/19/17 07:45 (Duoneb Neb) 1 ampule Q6HR NEB INH 09/16/17 22:00 09/19/17 08:32 (Albuterol Neb) 2.5 mg Q2HR NEB PRN INH 09/16/17 17:00 ([facility] Nursing Information) 1 Q361D XX 09/16/17 17:00 09/16/17 20:22 (Chlorhexidine 2% Cloth) 3 pack Taper DAILY@04 TOP 09/17/17 04:00 09/13/18 03:59 09/19/17 04:00 (Chlorhexidine 2% Cloth) 3 pack UNSCH PRN TOP 09/16/17 17:00 (Paula-Colace) 1 tab BID PO 09/16/17 21:00 09/19/17 07:45 (Milk Of Magnesia Liq) 30 ml Q12H PRN PO 09/16/17 17:00 (Senokot) 17.2 mg Q12H PRN PO 09/16/17 17:00 09/19/17 09:43 (Dulcolax Supp) 10 mg DAILY PRN RECTAL 09/16/17 17:00 (Lactulose Liq) 30 ml DAILY PRN PO 09/16/17 17:00 09/19/17 07:45 (Phenergan Inj) 25 mg Q6H PRN IM 09/16/17 17:00 (Percocet 10-325 Mg) 1 tab Q4H PRN PO 09/17/17 08:30 09/19/17 06:32 (Dolophine) 10 mg DAILY PO 09/17/17 09:00 09/19/17 07:45 Sodium Bicarbonate 150 meq/Sterile Water 1,000 ml @ 75 mls/hr [id number] IV 09/17/17 15:00 09/18/17 23:22 Oxacillin Sodium 2 gm/Sodium Chloride 100 ml @ 200 mls/hr Q4H IV 09/18/17 12:00 09/19/17 07:45 (Levaquin) 500 mg Q48H PO 09/18/17 11:00 09/18/17 11:21 Albumin Human 100 ml @ 60 mls/hr Q6HR IV 09/18/17 12:00 09/19/17 05:33 (Lasix Inj) 20 mg Q6HR IV PUSH 09/19/17 08:15 09/19/17 09:42 Lines Line no evidence of infection Past Medical History Hepatitis C Tricuspid valve endocarditis Group A strep sepsis MSSA sepsis Known active IV drug use Allergies: Coded Allergies: No Known Allergies (Unverified Allergy, Unknown, 08/13/17) Objective . Vital Signs Date Time Temp Pulse Resp B/P (MAP) Pulse Ox O2 Delivery O2 Flow Rate FiO2 09/21/17 10:00 67 30 131/93 (106) 92 09/21/17 08:00 68 22 121/89 (100) 94 09/21/17 04:00 84 09/21/17 02:00 82 09/21/17 00:00 76 09/20/17 20:00 80 09/20/17 19:20 97 21 09/20/17 18:31 27 09/20/17 16:00 97.9 81 26 139/77 (97) 94 09/20/17 16:00 81 09/20/17 14:00 76 . Laboratory Tests Test 09/20/17 15:05 09/21/17 10:35 White Blood Count 5.8 TH/MM3 5.5 TH/MM3 Red Blood Count 3.68 MIL/MM3 3.76 MIL/MM3 Hemoglobin 9.8 GM/DL 10.1 GM/DL Hematocrit 29.4 % 30.3 % Mean Corpuscular Volume 79.9 FL 80.7 FL Mean Corpuscular Hemoglobin 26.7 PG 27.0 PG Mean Corpuscular Hemoglobin Concent 33.4 % 33.4 % Red Cell Distribution Width 18.3 % 18.4 % Platelet Count 44 TH/MM3 25 TH/MM3 Mean Platelet Volume 10.8 FL 9.4 FL Neutrophils (%) (Auto) 74.3 % 82.0 % Lymphocytes (%) (Auto) 20.4 % 14.5 % Monocytes (%) (Auto) 4.2 % 2.6 % Eosinophils (%) (Auto) 0.6 % 0.4 % Basophils (%) (Auto) 0.5 % 0.5 % Neutrophils # (Auto) 4.3 TH/MM3 4.5 TH/MM3 Lymphocytes # (Auto) 1.2 TH/MM3 0.8 TH/MM3 Monocytes # (Auto) 0.2 TH/MM3 0.1 TH/MM3 Eosinophils # (Auto) 0.0 TH/MM3 0.0 TH/MM3 Basophils # (Auto) 0.0 TH/MM3 0.0 TH/MM3 CBC Comment AUTO DIFF AUTO DIFF Differential Total Cells Counted 100 Neutrophils % (Manual) 76 % Band Neutrophils % 3 % Lymphocytes % 16 % Monocytes % 3 % Eosinophils % 1 % Neutrophils # (Manual) 4.6 TH/MM3 Metamyelocytes 1 % Differential Comment FINAL DIFF MANUAL AUTO DIFF CONFIRMED Platelet Estimate LOW LOW Platelet Morphology Comment NORMAL ENLARGED Ovalocytes 1+ 1+ Tear Drop Cells 1+ Laboratory Tests Test 09/19/17 22:36 09/20/17 11:07 09/21/17 10:35 Blood Urea Nitrogen 51 MG/DL 51 MG/DL 54 MG/DL Creatinine 3.04 MG/DL 3.25 MG/DL 3.38 MG/DL Random Glucose 83 MG/DL 92 MG/DL 89 MG/DL Total Protein 5.6 GM/DL 5.3 GM/DL 6.5 GM/DL Calcium Level 7.2 MG/DL 7.2 MG/DL 8.0 MG/DL Phosphorus Level 4.4 MG/DL 5.6 MG/DL Magnesium Level 2.1 MG/DL Sodium Level 140 MEQ/L 141 MEQ/L 139 MEQ/L Potassium Level 3.7 MEQ/L 5.4 MEQ/L 3.7 MEQ/L Chloride Level 100 MEQ/L 101 MEQ/L 95 MEQ/L Carbon Dioxide Level 29.6 MEQ/L 27.1 MEQ/L 31.7 MEQ/L Anion Gap 10 MEQ/L 13 MEQ/L 12 MEQ/L Estimat Glomerular Filtration Rate 17 ML/MIN 16 ML/MIN 15 ML/MIN Protein Corrected Calcium 8.0 MG/DL 8.2 MG/DL Albumin 2.0 GM/DL 2.8 GM/DL Alkaline Phosphatase 59 U/L 68 U/L Aspartate Amino Transf (AST/SGOT) 19 U/L 17 U/L Alanine Aminotransferase (ALT/SGPT) LESS THAN 6 U/L LESS THAN 6 U/L Total Bilirubin 0.6 MG/DL 0.7 MG/DL Microbiology Date/Time Source Procedure Growth Status 09/19/17 10:25 Blood Peripheral Aerobic Blood Culture - Preliminary NO GROWTH IN 2 DAYS Resulted 09/19/17 10:25 Blood Peripheral Anaerobic Blood Culture - Preliminary NO GROWTH IN 2 DAYS Resulted 09/18/17 13:15 Blood Peripheral Aerobic Blood Culture - Final Staphylococcus Aureus Resulted 09/18/17 13:15 Blood Peripheral Anaerobic Blood Culture - Preliminary NO GROWTH IN 3 DAYS Resulted Imaging Last Impressions Chest X-Ray 09/16/17 1504 Signed Impressions: Service Date/Time: Saturday, September 16, 2017 15:28 - CONCLUSION: 1. Patchy bilateral lower lobe airspace disease, more prominent on the right. Findings are concerning for multilobar pneumonia or aspiration. Zenon Busch MD Head CT 09/16/17 0000 Signed Impressions: Service Date/Time: Saturday, September 16, 2017 17:56 - CONCLUSION: 1. No acute intracranial abnormality. 2. Left maxillary and sphenoid sinus mucosal disease. Zenon Busch MD Chest CT 09/16/17 0000 Signed Impressions: Service Date/Time: Saturday, September 16, 2017 18:04 - CONCLUSION: 1. Small bilateral pleural effusions with dense bilateral lower lobe airspace consolidation. 2. Numerous bilateral inflammatory pulmonary nodules including cavitary nodules in the apices bilaterally. Findings are consistent with septic emboli. Zenon Busch MD Abdomen/Pelvis CT 09/16/17 0000 Signed Impressions: Service Date/Time: Saturday, September 16, 2017 18:04 - CONCLUSION: 1. Limited examination due to paucity of peritoneal fat and patient's overlying arms. 2. Hepatosplenomegaly with small amount of ascites. 3. Small to moderate amount of colonic stool without evidence for bowel obstruction. Zenon Busch MD Physical Exam GENERAL: Awake and alert, not in distress. SKIN: Warm and dry. No generalized rash, no ecchymoses and no evidence of embolic lesions. HEAD: Atraumatic. Normocephalic. No temporal wasting, or tenderness. EYES: [place] conjunctiva. No petechia or hemorrhage. Pupils equal, round and reactive to light. Extraocular movements full and intact. No scleral icterus. No injection or drainage. EARS, NOSE AND THROAT: Nose without bleeding or purulent nasal discharge. No sinus tenderness. Very dry oral mucosa. NECK: Trachea midline. Supple, no meningeal signs CARDIOVASCULAR: Regular rate and rhythm. No murmurs, rubs or gallops heard RESPIRATORY: Clear to auscultation. Breath sounds equal bilaterally. No rales , wheezing or rhonchi. Decreased breath sounds at the bases ABDOMEN: Distended, with diffuse abdominal tenderness, tympanitic on percussion. Bowel sounds present and normoactive. : Dan cath in place. L labia is swollen but not red EXTREMITIES: No clubbing, cyanosis. Has bilateral pitting pedal edema. Pain with any touching or movement of both lower extremity. Did not appreciate any erythema in any parts of her lower extremity. Well perfused and warm. NEUROLOGICAL: Grossly non-focal PSYCHIATRIC: Cooperative LINE: No evidence of infection Assessment & Plan Remarks IMPRESSION Sepsis with shock, due to endocarditis - has MOSF - previously had GAS, then MSSA - now MSSA MSSA endocarditis - previous echo with veg in TV Has pulmonary septic emboli Has UTI Renal insufficiency Pancytopenia DIC Known very poor compliance to medical Rx RECOMMENDATION Continue IV Oxacillin Continue Levaquin to have some pulmonary coverage Follow cultures Await echo Follow CBC Monitor bleeding Monitor progress She will need a course of IV antibiotics for her endocarditis D/W Milana Caruso MD September 21, 2017 12:21
[2017-09-21] MEDS: SODIUM BICARBONATE 8.4% INJ 150 MEQ in WATER STERILE FOR INJ 850 ML IV SCH (12:31)
--- NOTE | 2017-09-21 15:05 | HHI.NPPN ---
Subjective History of Present Illness Patient is a 37-year-old with IVDA and endocarditis with acute renal failure Review of Systems General Constitutional: Fatigue Musculoskeletal MS: Pain/Stiffness Objective Data Data Vital Signs Date Time Temp Pulse Resp B/P (MAP) Pulse Ox O2 Delivery O2 Flow Rate FiO2 09/21/17 14:00 71 09/21/17 12:00 65 09/21/17 12:00 65 26 122/87 (99) 98 09/21/17 10:00 67 30 131/93 (106) 92 09/21/17 08:30 96 21 09/21/17 08:00 68 22 121/89 (100) 94 09/21/17 04:00 84 09/21/17 02:00 82 09/21/17 00:00 76 09/20/17 20:00 80 09/20/17 19:20 97 Oxyhood 21 09/20/17 18:31 27 09/20/17 16:00 97.9 81 26 139/77 (97) 94 09/20/17 16:00 81 -: 09/21/17 1035 09/21/17 1035 Physical Exam General Appearance: Pale Neck Neck Exam: Neck Supple Pulmonary Resp Exam: Decreased Bases Cardiology CV Exam: Regular Gastrointestinal/Abdomen GI Exam: Soft, Non-Tender, Distended, Bowel Sounds Hypoactive Integumentary Skin Exam: Ulcer(s) Extremeties Extremities Exam: Pitting Edema, Dependent Edema Neurologic Neuro Exam: Alert, Awake, Oriented Assessment/Plan Problem List: (1) Acute renal failure ICD Codes: N17.9 - Acute kidney failure, unspecified Plan: This is likely due to underlying endocarditis and severe infection Continue to monitor urine output Patient is dehydrated/ATN Albumin 25 g IV every 12 hourly as ordered stop bicarb drip Continue with diuretic change to Lasix 20 mg IV every 12 hourly Potassium 3.7 endocarditis AV Vegetation TV Big mobile Vegetation ultrasound abdomen small amount ascites kidney size normal he has hepatosplenomegaly possible cirrhosis Follow BMP (2) Endocarditis ICD Codes: I38 - Endocarditis, valve unspecified Status: Acute Plan: Due to IVDA (3) Severe sepsis ICD Codes: A41.9 - Sepsis, unspecified organism; R65.20 - Severe sepsis without septic shock Status: Acute Plan: Staph aureus septicemia Azalea Gillette MD September 21, 2017 15:05
--- NOTE | 2017-09-21 19:25 | ECHRPT ---
Indication: F/U ENDOCARDITIS CONCLUSIONS Normal left ventricular size. Wall thickness is normal. The left ventricular systolic function is low normal with an estimated ejection fraction in the rang e of 50- 55%. Mild mitral valve regurgitation. Findings consistent with vegetation on the non-coronary cusp of the aortic valve. Moderate eccentric aortic valve regurgitation. Large mobile vegetation seen on the tricuspid valve. There is moderate to severe tricuspid valve regurgitation. The estimated pulmonary arterial pressure is 58.3 mmHg. There is a trace to small pericardial effusion present. Large pleural effusion BP: 100 / 56 HR: Rhythm: Sinus MEASUREMENTS (Male / Female) Normal Values Technical Quality:Fair 2D ECHO LV Diastolic Diameter PLAX 5.1 cm 4.2 - 5.9 / 3.9 - 5.3 cm LV Systolic Diameter PLAX 4.3 cm IVS Diastolic Thickness 0.8 cm 0.6 - 1.0 / 0.6 - 0.9 cm LVPW Diastolic Thickness 0.8 cm 0.6 - 1.0 / 0.6 - 0.9 cm LV Relative Wall Thickness 0.3 RV Internal Dim ED PLAX 3.5 cm LVOT Diameter 2.0 cm Aortic Root Diameter 2.4 cm LA Systolic Diameter LX 3.6 cm 3.0 - 4.0 / 2.7 - 3.8 cm M-MODE AV Cusp Separation MM 1.6 cm DOPPLER AV Peak Velocity 186.0 cm/s AV Peak Gradient 13.8 mmHg AV Mean Gradient 7.0 mmHg AV Velocity Time Integral 33.2 cm AI Peak Velocity 510.0 cm/s AI Peak Gradient 104.0 mmHg AI Pressure Half Time 626.0 ms LVOT Peak Velocity 120.0 cm/s LVOT Peak Gradient 5.8 mmHg LVOT Velocity Time Integral 22.4 cm AV Area Cont Eq vti 2.1 cm AV Area Cont Eq pk 2.0 cm TR Peak Velocity 329.0 cm/s TR Peak Gradient 43.3 mmHg Right Atrial Pressure 15.0 mmHg Pulmonary Artery Systolic Pressu 58.3 mmHg Right Ventricular Systolic Press 58.3 mmHg PV Peak Velocity 64.7 cm/s PV Peak Gradient 1.7 mmHg FINDINGS LEFT VENTRICLE Normal left ventricular size. Wall thickness is normal. The left ventricular systolic function is low normal with an estimated ejection fraction in the rang e of 50- 55%. RIGHT VENTRICLE Normal right ventricular size and systolic function. LEFT ATRIUM The left atrial size is normal. RIGHT ATRIUM The right atrial size is normal. ATRIAL SEPTUM Normal atrial septal thickness without atrial level shunting by limited color doppler interrogation. AORTA The aortic root and proximal ascending aorta are normal in size on limited imaging. MITRAL VALVE Mild mitral valve regurgitation. AORTIC VALVE Findings consistent with vegetation on the non-coronary cusp of the aortic valve. Moderate eccentric aortic valve regurgitation. TRICUSPID VALVE Large mobile vegetation seen on the tricuspid valve. There is moderate to severe tricuspid valve regurgitation. The estimated pulmonary arterial pressure is 58.3 mmHg. PULMONARY VALVE No pulmonary valve regurgitation or stenosis. VESSELS The inferior vena cava is normal in size. PERICARDIUM There is a trace to small pericardial effusion present. Large pleural effusion Jens Rodríguez MD, FACC (Electronically Signed) Final Date:21 Sep 2017 19:24
--- NOTE | 2017-09-21 23:57 | PD.ONC.PN ---
Subjective Subjective Remarks Resting comfortably in bed. Objective Data Date Time Temp Pulse Resp B/P (MAP) Pulse Ox O2 Delivery O2 Flow Rate FiO2 09/21/17 22:00 73 09/21/17 20:00 80 09/21/17 16:00 70 09/21/17 16:00 70 23 155/80 (105) 98 09/21/17 16:00 70 23 155/80 (105) 98 09/21/17 14:00 71 09/21/17 12:00 65 09/21/17 12:00 65 26 122/87 (99) 98 09/21/17 10:00 67 30 131/93 (106) 92 09/21/17 08:30 96 21 09/21/17 08:00 68 22 121/89 (100) 94 09/21/17 04:00 84 09/21/17 02:00 82 09/21/17 00:00 76 Result Diagram: 09/21/17 1035 09/21/17 1035 Laboratory Results Laboratory Tests Test 09/21/17 10:35 White Blood Count 5.5 TH/MM3 Red Blood Count 3.76 MIL/MM3 Hemoglobin 10.1 GM/DL Hematocrit 30.3 % Mean Corpuscular Volume 80.7 FL Mean Corpuscular Hemoglobin 27.0 PG Mean Corpuscular Hemoglobin Concent 33.4 % Red Cell Distribution Width 18.4 % Platelet Count 25 TH/MM3 Mean Platelet Volume 9.4 FL Neutrophils (%) (Auto) 82.0 % Lymphocytes (%) (Auto) 14.5 % Monocytes (%) (Auto) 2.6 % Eosinophils (%) (Auto) 0.4 % Basophils (%) (Auto) 0.5 % Neutrophils # (Auto) 4.5 TH/MM3 Lymphocytes # (Auto) 0.8 TH/MM3 Monocytes # (Auto) 0.1 TH/MM3 Eosinophils # (Auto) 0.0 TH/MM3 Basophils # (Auto) 0.0 TH/MM3 CBC Comment AUTO DIFF Differential Comment AUTO DIFF CONFIRMED Platelet Estimate LOW Platelet Morphology Comment ENLARGED Tear Drop Cells 1+ Ovalocytes 1+ Blood Urea Nitrogen 54 MG/DL Creatinine 3.38 MG/DL Random Glucose 89 MG/DL Total Protein 6.5 GM/DL Albumin 2.8 GM/DL Calcium Level 8.0 MG/DL Phosphorus Level 5.6 MG/DL Alkaline Phosphatase 68 U/L Aspartate Amino Transf (AST/SGOT) 17 U/L Alanine Aminotransferase (ALT/SGPT) LESS THAN 6 U/L Total Bilirubin 0.7 MG/DL Sodium Level 139 MEQ/L Potassium Level 3.7 MEQ/L Chloride Level 95 MEQ/L Carbon Dioxide Level 31.7 MEQ/L Anion Gap 12 MEQ/L Estimat Glomerular Filtration Rate 15 ML/MIN Culture Results Microbiology Date/Time Source Procedure Growth Status 09/21/17 16:44 Blood Peripheral Aerobic Blood Culture Pending Received 09/21/17 16:44 Blood Peripheral Anaerobic Blood Culture Pending Received 09/19/17 10:25 Blood Peripheral Aerobic Blood Culture - Preliminary NO GROWTH IN 2 DAYS Resulted 09/19/17 10:25 Blood Peripheral Anaerobic Blood Culture - Preliminary NO GROWTH IN 2 DAYS Resulted Administered Medications Medications (Trade) Dose Ordered Sig/Amy Route PRN Reason Start Time Stop Time Status Last Admin Dose Admin Sodium Chloride (NS Flush) 2 ml BID IV FLUSH 09/16/17 21:00 09/21/17 21:27 Miscellaneous Information ([facility] Nursing Information) 1 Q361D XX 09/16/17 17:00 09/16/17 20:22 Chlorhexidine Gluconate (Chlorhexidine 2% Cloth) 3 pack Taper DAILY@04 TOP 09/17/17 04:00 09/13/18 03:59 09/21/17 04:00 Senna/Docusate Sodium (Paula-Colace) 1 tab BID PO 09/16/17 21:00 09/21/17 07:47 Magnesium Hydroxide (Milk Of Magnesia Liq) 30 ml Q12H PRN PO Mild constipation 09/16/17 17:00 09/19/17 11:19 Sennosides (Senokot) 17.2 mg Q12H PRN PO Moderate constipation 09/16/17 17:00 09/19/17 09:43 Bisacodyl (Dulcolax Supp) 10 mg DAILY PRN RECTAL SEVERE CONSITIPATION 09/16/17 17:00 09/19/17 11:20 Lactulose (Lactulose Liq) 30 ml DAILY PRN PO SEVERE CONSITIPATION 09/16/17 17:00 09/19/17 07:45 Promethazine HCl (Phenergan Inj) 25 mg Q6H PRN IM NAUSEA/VOMITING 09/16/17 17:00 09/21/17 05:29 Oxycodone/ Acetaminophen (Percocet 10-325 Mg) 1 tab Q4H PRN PO pain scale 5-10 09/17/17 08:30 09/21/17 21:26 Methadone HCl (Dolophine) 10 mg DAILY PO 09/17/17 09:00 09/21/17 07:48 Oxacillin Sodium 2 gm/Sodium Chloride 100 ml @ 200 mls/hr Q4H IV 09/18/17 12:00 09/21/17 21:32 Levofloxacin (Levaquin) 500 mg Q48H PO 09/18/17 11:00 09/20/17 12:32 Famotidine (Pepcid) 10 mg BID PO 09/19/17 21:00 09/21/17 21:26 Metoprolol Tartrate (Lopressor) 12.5 mg Q12HR PO 09/20/17 00:30 09/21/17 21:27 Albumin Human 100 ml @ 60 mls/hr BID IV 09/21/17 21:00 09/21/17 21:32 Furosemide (Lasix Inj) 20 mg BID IV PUSH 09/21/17 21:00 09/21/17 21:26 Objective Remarks GENERAL: chronically ill appearing lady SKIN: Warm and dry. HEAD: Normocephalic. EYES: No scleral icterus. No injection or drainage. NECK: Supple, trachea midline. No JVD or lymphadenopathy. LYMPHATIC: No adenopathy. CARDIOVASCULAR: Regular rate and rhythm without murmurs. RESPIRATORY: Breath sounds equal bilaterally. No accessory muscle use. GASTROINTESTINAL: Abdomen soft, non-tender, nondistended. EXTREMITIES: edema of all four extremities NEUROLOGICAL: No obvious focal deficit. Awake, alert, and oriented x3. Assessment/Plan Assessment 1. Coagulopathy: resolving, due to DIC due to sepsis, endocarditis. 2. Thrombocytopenia: improving, due to DIC, sepsis, endocarditis, hypersplenism. Continue to follow CBC 3. Anemia: component of inflammatory anemia. 4. Endocarditis, sepsis: currently on antibiotic therapy. ID team following closely. 5. History of Maki Anglin MD September 21, 2017 23:57
[2017-09-22] VITALS (11 sets, daily range): BP systolic 115–148; BP diastolic 60–93; PULSE 61–93; RESP 9–25; TEMP 97.8–98.3; O2SAT 93–100
[2017-09-22] MEDS: OXACILLIN INJ 2 GM in SODIUM CHLORIDE 0.9% INJ 100 ML IV SCH ×6 (00:21→21:25)
[2017-09-22] MEDS: oxyCODONE/ACETAMINOPHEN 10 MG/325 MG TAB PO PRN ×5 (00:23→19:54)
[2017-09-22] MEDS: CHLORHEXIDINE GLUCONATE 2 % 1 PACK (2 CLOTHS) TOP SCH (03:33)
[2017-09-22 04:37] LABS: BASOPHIL % 0.8 % (0.0-2.0); EOSINOPHIL # 0.1 TH/MM3 (0-0.4); HEMOGLOBIN 9.2 GM/DL (11.6-15.3); MEAN CELL VOLUME 79.4 FL (80.0-100.0); MEAN CORPUSCULAR HEMOGLOBIN 27.1 PG (27.0-34.0); MEAN CORPUSCULAR HGB CONC 34.2 % (32.0-36.0); MEAN PLATELET VOLUME 11.2 FL (7.0-11.0); MONO % 5.1 % (0.0-8.0); MONOCYTE # 0.3 TH/MM3 (0-0.9); NEUT % 74.1 % (16.0-70.0); PLATELET COUNT 69 TH/MM3 (150-450); RED BLOOD COUNT 3.41 MIL/MM3 (4.00-5.30); RED CELL DISTRIBUTION WIDTH 17.9 % (11.6-17.2); WHITE BLOOD COUNT 5.3 TH/MM3 (4.0-11.0)
[2017-09-22 04:54] LABS: ALBUMIN 2.3 GM/DL (3.4-5.0); ALT (GPT) 7 U/L (10-53); AST (GOT) 14 U/L (15-37); BICARBONATE 32.6 MEQ/L (21.0-32.0); BLOOD UREA NITROGEN 58 MG/DL (7-18); CALCIUM 7.8 MG/DL (8.5-10.1); CHLORIDE 95 MEQ/L (98-107); CREATININE 3.58 MG/DL (0.50-1.00); GLOMERULAR FILTRATION RATE 14 ML/MIN (>89); GLUCOSE,RANDOM 93 MG/DL (74-106); SODIUM (NA) 139 MEQ/L (136-145)
[2017-09-22 05:03] LABS: ALKALINE PHOSPHATASE 61 U/L (45-117); TOTAL BILIRUBIN ADULT 0.6 MG/DL (0.2-1.0); TOTAL PROTEIN 5.9 GM/DL (6.4-8.2)
[2017-09-22 05:13] LABS: BANDS 12 % (0-6); LYMPHOCYTES 13 % (9-44); MONOCYTES 2 % (0-8); NEUTROPHIL # MANUAL DIFF 4.5 TH/MM3 (1.8-7.7); POLYS (SEG NEUTROPHILS) 73 % (16-70)
[2017-09-22 05:15] LABS: OVALOCYTES 1+ (NORMAL)
[2017-09-22] MEDS ORDERED: POTASSIUM CHLORIDE 20 MEQ CONTROLLED RELEASE TAB PO ONE (05:15)
[2017-09-22] MEDS ORDERED: POTASSIUM CHLORIDE 10 MEQ CONTROLLED RELEASE TAB PO ONE (08:30)
[2017-09-22] MEDS: DOCUSATE SODIUM 50 MG/SENNA 8.6 MG TAB PO SCH ×2 (09:00→21:00)
[2017-09-22] MEDS: FUROSEMIDE 20 MG/2 ML VIAL IV PUSH SCH ×2 (09:00→21:10)
[2017-09-22] MEDS: METHADONE HCL 10 MG TAB PO SCH (09:00)
[2017-09-22] MEDS: FAMOTIDINE 20 MG TAB PO SCH ×2 (09:00→21:11)
[2017-09-22] MEDS: SODIUM CHLORIDE 0.9% FLUSH 10 ML FLUSH IV FLUSH SCH ×2 (09:00→21:14)
[2017-09-22] MEDS: METOPROLOL TARTRATE 25 MG TAB PO SCH ×2 (09:00→21:11)
--- NOTE | 2017-09-22 10:00 | HHI.PR ---
Subjective Remarks Diarrhea present today. Hypokalemia present, likely related to diarrhea. No other complaints. Objective Vital Signs Date Time Temp Pulse Resp B/P (MAP) Pulse Ox O2 Delivery O2 Flow Rate FiO2 09/22/17 04:00 98.2 61 19 128/60 (82) 97 09/22/17 04:00 61 09/22/17 00:00 76 25 115/61 (79) 100 09/22/17 00:00 75 09/21/17 22:00 73 09/21/17 20:00 80 09/21/17 16:00 70 09/21/17 16:00 70 23 155/80 (105) 98 09/21/17 16:00 70 23 155/80 (105) 98 09/21/17 14:00 71 09/21/17 12:00 65 09/21/17 12:00 65 26 122/87 (99) 98 09/21/17 10:00 67 30 131/93 (106) 92 I/O 09/21/17 09/21/17 09/21/17 09/22/17 09/22/17 09/22/17 07:00 15:00 23:00 07:00 15:00 23:00 Intake Total 1248 ml 431 ml 1760 ml 440 ml Output Total 1200 ml 900 ml Balance 48 ml 431 ml 860 ml 440 ml Intake Oral 240 ml 940 ml 240 ml IV Total 1008 ml 431 ml 820 ml 200 ml Output Urine Total 1200 ml 900 ml # Voids 1 # Bowel Movements 1 2 1 Result Diagram: 09/22/17 0410 09/22/17 0410 Objective Remarks GENERAL: NAD, A&Ox3 HEAD: Normocephalic. NECK: Supple, trachea midline. No lymphadenopathy. EYES: No scleral icterus. No injection or drainage. CARDIOVASCULAR: Regular rate and rhythm without murmurs, gallops, or rubs. RESPIRATORY: Breath sounds equal bilaterally. No accessory muscle use. GASTROINTESTINAL: Abdomen soft, non-tender, nondistended. MUSCULOSKELETAL: No cyanosis, or edema. SKIN: Warm and dry. NEURO: No focal neurological deficitis. A/P Problem List: (1) Acute renal failure ICD Code: N17.9 - Acute kidney failure, unspecified (2) Endocarditis ICD Code: I38 - Endocarditis, valve unspecified Status: Acute (3) Septic pulmonary embolism ICD Code: I26.90 - Septic pulmonary embolism without acute cor pulmonale Status: Acute (4) Severe sepsis ICD Code: A41.9 - Sepsis, unspecified organism; R65.20 - Severe sepsis without septic shock Status: Acute (5) Multi-organ system dysfunction Status: Acute (6) Encephalopathy ICD Code: G93.40 - Encephalopathy, unspecified; R65.20 - Severe sepsis without septic shock Status: Acute Assessment and Plan Assessment and Plan 37-year-old female admitted with Severe Sepsis with shock and organ failure related to 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 Renal function is improved and appears stable. Diarrhea is present. Etiology of diarrhea may be withdraw. C. Diff screen ordered. Continue to monitor potassium levels and replace as needed. Acute encephalopathy Narcotic Withdraw On methadone 10 mg daily Percocet 10/325 mg p.o. every 4 hourly as needed for pain/withdraw Severe sepsis with multiorgan failure Acute Renal Failure Continue Bicarb drip at 150 ml/hr Follow creatinine Nephrology following Dan in place Septic pulmonary emboli Follow pulse ox Oxygen as needed IV oxacillin Tricuspid valve vegetation with severe TR Endocarditis Right lower leg abscess (septic emboli) IV oxacillin ID Following Abdominal pain Hepatosplenomegaly Hep C noted on serology P.o. diet as tolerated Acute kidney injury Hypokalemia monitor and replace as needed Vaginal discharge Negative STD evaluation Follow clinically Pancytopenia Thrombocytopenia Possible DIC (resolved) Improving Follow CBC DVT Prophylaxis Bleed risk SCDs Tung Zarate MD September 22, 2017 10:00
--- NOTE | 2017-09-22 12:07 | HHI.NPPN ---
Subjective History of Present Illness Patient is a 37-year-old with IVDA and endocarditis with acute renal failure Review of Systems General Constitutional: Fatigue Musculoskeletal MS: Pain/Stiffness Objective Data Data Vital Signs Date Time Temp Pulse Resp B/P (MAP) Pulse Ox O2 Delivery O2 Flow Rate FiO2 09/22/17 04:00 98.2 61 19 128/60 (82) 97 09/22/17 04:00 61 09/22/17 00:00 76 25 115/61 (79) 100 09/22/17 00:00 75 09/21/17 22:00 73 09/21/17 20:00 80 09/21/17 16:00 70 09/21/17 16:00 70 23 155/80 (105) 98 09/21/17 16:00 70 23 155/80 (105) 98 09/21/17 14:00 71 -: 09/22/17 0410 09/22/17 0410 Microbiology 09/21/17 Aerobic Blood Culture - Preliminary, Resulted NO GROWTH IN 1 DAY 09/21/17 Anaerobic Blood Culture - Preliminary, Resulted NO GROWTH IN 1 DAY Physical Exam General Appearance: Pale Neck Neck Exam: Neck Supple Pulmonary Resp Exam: Decreased Bases Cardiology CV Exam: Regular Gastrointestinal/Abdomen GI Exam: Soft, Non-Tender, Distended, Bowel Sounds Hypoactive Integumentary Skin Exam: Ulcer(s) Extremeties Extremities Exam: Pitting Edema, Dependent Edema Neurologic Neuro Exam: Alert, Awake, Oriented Assessment/Plan Problem List: (1) Acute renal failure ICD Codes: N17.9 - Acute kidney failure, unspecified Plan: This is likely due to underlying endocarditis and severe infection Continue to monitor urine output Patient is dehydrated/ATN Albumin 25 g IV every 12 hourly as ordered UOP 2.2 L Cr 3.5 K replaced Continue with diuretic Lasix 20 mg IV every 12 hourly d/w family possibility of dialysis endocarditis AV Vegetation TV Big mobile Vegetation ultrasound abdomen small amount ascites kidney size normal he has hepatosplenomegaly possible cirrhosis Follow BMP (2) Endocarditis ICD Codes: I38 - Endocarditis, valve unspecified Status: Acute Plan: Due to IVDA (3) Severe sepsis ICD Codes: A41.9 - Sepsis, unspecified organism; R65.20 - Severe sepsis without septic shock Status: Acute Plan: Staph aureus septicemia Azalea Gillette MD September 22, 2017 12:07
[2017-09-22] MEDS: LEVOFLOXACIN 500 MG TAB PO SCH (12:38)
[2017-09-22] MEDS: ALBUMIN 25% INJ 100 ML IV SCH ×2 (12:51→21:10)
--- NOTE | 2017-09-22 16:36 | HHI.IDPN ---
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 Patient also had another admission in July, and at that time her blood cultures grew methicillin sensitive staph aureus. She signed out AGAINST MEDICAL ADVICE again at that time. When she came in this time, her CBC showed pancytopenia. CT of the chest showed evidence of multiple pulmonary septic emboli. 2 blood cultures done are now showing staph aureus. She was also hypotensive, and also had an elevated creatinine. Her urine output has been low. CT of the head did not show any significant abnormality. CT of the abdomen and pelvis showed splenomegaly. Patient currently still lethargic, and moaning. She is complaining of pain throughout her whole body. She is on Celso-Synephrine. Infectious disease consultation has been requested to evaluate the patient. Notes reviewed Temps ok BP ok Creatinine rising Still C/O pain everywhere BC with MSSA Has DIC, numbers improving No bleeding Echo with large TV vegetation and also with AV vegetation Antibiotics Oxacillin Levaquin Current Medications Medications (Trade) Dose Ordered Sig/Amy Route Start Time Stop Time Status Last Admin (NS Flush) 2 ml UNSCH PRN IV FLUSH 09/16/17 17:00 (NS Flush) 2 ml BID IV FLUSH 09/16/17 21:00 09/21/17 21:27 (Albuterol Neb) 2.5 mg Q2HR NEB PRN INH 09/16/17 17:00 [place] [place] [facility] 1 Q361D XX 09/16/17 17:00 09/16/17 20:22 (Chlorhexidine 2% Cloth) Taper DAILY@04 TOP 09/17/17 04:00 09/13/18 03:59 09/21/17 04:00 (Chlorhexidine 2% Cloth) 3 pack UNSCH PRN TOP 09/16/17 17:00 (Paula-Colace) 1 tab BID PO 09/16/17 21:00 09/22/17 09:00 (Milk Of Magnesia Liq) 30 ml Q12H PRN PO 09/16/17 17:00 09/19/17 11:19 (Senokot) 17.2 mg Q12H PRN PO 09/16/17 17:00 09/19/17 09:43 (Dulcolax Supp) 10 mg DAILY PRN RECTAL 09/16/17 17:00 09/19/17 11:20 (Lactulose Liq) 30 ml DAILY PRN PO 09/16/17 17:00 09/19/17 07:45 (Phenergan Inj) 25 mg Q6H PRN IM 09/16/17 17:00 09/21/17 05:29 (Percocet 10-325 Mg) 1 tab Q4H PRN PO 09/17/17 08:30 09/22/17 12:39 (Dolophine) 10 mg DAILY PO 09/17/17 09:00 09/22/17 09:00 Oxacillin Sodium 2 gm/Sodium Chloride 100 ml @ 200 mls/hr Q4H IV 09/18/17 12:00 09/22/17 12:40 (Levaquin) 500 mg Q48H PO 09/18/17 11:00 09/22/17 12:38 (Pepcid) 10 mg BID PO 09/19/17 21:00 09/22/17 09:00 (Lopressor) 12.5 mg Q12HR PO 09/20/17 00:30 09/22/17 09:00 Albumin Human 100 ml @ 60 mls/hr BID IV 09/21/17 21:00 09/22/17 12:51 (Lasix Inj) 20 mg BID IV PUSH 09/21/17 21:00 09/22/17 09:00 Lines Line no evidence of infection Past Medical History Hepatitis C Tricuspid valve endocarditis Group A strep sepsis MSSA sepsis Known active IV drug use Allergies: Coded Allergies: No Known Allergies (Unverified Allergy, Unknown, 08/13/17) Objective . Vital Signs Date Time Temp Pulse Resp B/P (MAP) Pulse Ox O2 Delivery O2 Flow Rate FiO2 09/22/17 12:00 62 09/22/17 12:00 97.9 62 15 136/65 (88) 97 09/22/17 08:00 97.8 64 9 131/74 (93) 98 09/22/17 08:00 64 09/22/17 04:00 98.2 61 19 128/60 (82) 97 5/26/18 04:00 61 09/22/17 00:00 76 25 115/61 (79) 100 09/22/17 00:00 75 09/21/17 22:00 73 09/21/17 20:00 80 . Laboratory Tests Test 09/21/17 10:35 09/22/17 04:10 White Blood Count 5.5 TH/MM3 5.3 TH/MM3 Red Blood Count 3.76 MIL/MM3 3.41 MIL/MM3 Hemoglobin 10.1 GM/DL 9.2 GM/DL Hematocrit 30.3 % 27.0 % Mean Corpuscular Volume 80.7 FL 79.4 FL Mean Corpuscular Hemoglobin 27.0 PG 27.1 PG Mean Corpuscular Hemoglobin Concent 33.4 % 34.2 % Red Cell Distribution Width 18.4 % 17.9 % Platelet Count 25 TH/MM3 69 TH/MM3 Mean Platelet Volume 9.4 FL 11.2 FL Neutrophils (%) (Auto) 82.0 % 74.1 % Lymphocytes (%) (Auto) 14.5 % 19.0 % Monocytes (%) (Auto) 2.6 % 5.1 % Eosinophils (%) (Auto) 0.4 % 1.0 % Basophils (%) (Auto) 0.5 % 0.8 % Neutrophils # (Auto) 4.5 TH/MM3 4.0 TH/MM3 Lymphocytes # (Auto) 0.8 TH/MM3 1.0 TH/MM3 Monocytes # (Auto) 0.1 TH/MM3 0.3 TH/MM3 Eosinophils # (Auto) 0.0 TH/MM3 0.1 TH/MM3 Basophils # (Auto) 0.0 TH/MM3 0.0 TH/MM3 CBC Comment AUTO DIFF AUTO DIFF Differential Comment AUTO DIFF CONFIRMED FINAL DIFF MANUAL Platelet Estimate LOW LOW Platelet Morphology Comment ENLARGED ENLARGED Tear Drop Cells 1+ Ovalocytes 1+ 1+ Differential Total Cells Counted 100 Neutrophils % (Manual) 73 % Band Neutrophils % 12 % Lymphocytes % 13 % Monocytes % 2 % Neutrophils # (Manual) 4.5 TH/MM3 Laboratory Tests Test 09/21/17 10:35 09/22/17 04:10 09/22/17 12:20 Blood Urea Nitrogen 54 MG/DL 58 MG/DL Creatinine 3.38 MG/DL 3.58 MG/DL Random Glucose 89 MG/DL 93 MG/DL Total Protein 6.5 GM/DL 5.9 GM/DL Albumin 2.8 GM/DL 2.3 GM/DL Calcium Level 8.0 MG/DL 7.8 MG/DL Phosphorus Level 5.6 MG/DL Alkaline Phosphatase 68 U/L 61 U/L Aspartate Amino Transf (AST/SGOT) 17 U/L 14 U/L Alanine Aminotransferase (ALT/SGPT) LESS THAN 6 U/L 7 U/L Total Bilirubin 0.7 MG/DL 0.6 MG/DL Sodium Level 139 MEQ/L 139 MEQ/L Potassium Level 3.7 MEQ/L 2.9 MEQ/L 3.5 MEQ/L Chloride Level 95 MEQ/L 95 MEQ/L Carbon Dioxide Level 31.7 MEQ/L 32.6 MEQ/L Anion Gap 12 MEQ/L 11 MEQ/L Estimat Glomerular Filtration Rate 15 ML/MIN 14 ML/MIN Ammonia LESS THAN 10 MCMOL/L Microbiology Date/Time Source Procedure Growth Status 09/21/17 16:44 Blood Peripheral Aerobic Blood Culture - Preliminary NO GROWTH IN 1 DAY Resulted 09/21/17 16:44 Blood Peripheral Anaerobic Blood Culture - Preliminary NO GROWTH IN 1 DAY Resulted Imaging Last Impressions Chest X-Ray 09/16/17 1504 Signed Impressions: Service Date/Time: Saturday, September 16, 2017 15:28 - CONCLUSION: 1. Patchy bilateral lower lobe airspace disease, more prominent on the right. Findings are concerning for multilobar pneumonia or aspiration. Zenon Busch MD Head CT 09/16/17 0000 Signed Impressions: Service Date/Time: Saturday, September 16, 2017 17:56 - CONCLUSION: 1. No acute intracranial abnormality. 2. Left maxillary and sphenoid sinus mucosal disease. Zenon Busch MD Chest CT 09/16/17 0000 Signed Impressions: Service Date/Time: Saturday, September 16, 2017 18:04 - CONCLUSION: 1. Small bilateral pleural effusions with dense bilateral lower lobe airspace consolidation. 2. Numerous bilateral inflammatory pulmonary nodules including cavitary nodules in the apices bilaterally. Findings are consistent with septic emboli. Zenon Busch MD Abdomen/Pelvis CT 09/16/17 0000 Signed Impressions: Service Date/Time: Saturday, September 16, 2017 18:04 - CONCLUSION: 1. Limited examination due to paucity of peritoneal fat and patient's overlying arms. 2. Hepatosplenomegaly with small amount of ascites. 3. Small to moderate amount of colonic stool without evidence for bowel obstruction. Zenon Busch MD Physical Exam GENERAL: Awake and alert, not in distress. SKIN: Warm and dry. No generalized rash, no ecchymoses and no evidence of embolic lesions. HEAD: Atraumatic. Normocephalic. No temporal wasting, or tenderness. EYES: [place] conjunctiva. No petechia or hemorrhage. Pupils equal, round and reactive to light. Extraocular movements full and intact. No scleral icterus. No injection or drainage. EARS, NOSE AND THROAT: Nose without bleeding or purulent nasal discharge. No sinus tenderness. Very dry oral mucosa. NECK: Trachea midline. Supple, no meningeal signs CARDIOVASCULAR: Regular rate and rhythm. No murmurs, rubs or gallops heard RESPIRATORY: Clear to auscultation. Breath sounds equal bilaterally. No rales , wheezing or rhonchi. Decreased breath sounds at the bases ABDOMEN: Distended, with diffuse abdominal tenderness, tympanitic on percussion. Bowel sounds present and normoactive. : Dan cath in place. L labia is swollen but not red EXTREMITIES: No clubbing, cyanosis. Has bilateral pitting pedal edema. NEUROLOGICAL: Grossly non-focal PSYCHIATRIC: Cooperative LINE: No evidence of infection Assessment & Plan Remarks IMPRESSION Sepsis with shock, due to endocarditis - BP stable - has MOSF - previously had GAS, then MSSA - now MSSA MSSA endocarditis - echo with large TV veg and now also with AV veg Has pulmonary septic emboli Has UTI Renal insufficiency Pancytopenia, improving Known very poor compliance to medical Rx RECOMMENDATION Continue IV Oxacillin Continue Levaquin to have some pulmonary coverage Follow cultures Progression of infection due to poor compliance to medical treatment Follow CBC Monitor progress She will need a course of IV antibiotics for her endocarditis Milana Harp MD September 22, 2017 16:36
[2017-09-22] MEDS: SODIUM CHLORIDE 0.9% FLUSH 10 ML FLUSH IV FLUSH PRN (21:11)
[2017-09-23] VITALS (10 sets, daily range): BP systolic 126–166; BP diastolic 70–91; PULSE 72–88; RESP 16–18; TEMP 97.4–98.8; O2SAT 91–94
[2017-09-23] MEDS: oxyCODONE/ACETAMINOPHEN 10 MG/325 MG TAB PO PRN ×5 (00:28→23:42)
[2017-09-23] MEDS: OXACILLIN INJ 2 GM in SODIUM CHLORIDE 0.9% INJ 100 ML IV SCH ×6 (00:28→23:41)
[2017-09-23] MEDS: CHLORHEXIDINE GLUCONATE 2 % 1 PACK (2 CLOTHS) TOP SCH (03:36)
[2017-09-23] MEDS: FUROSEMIDE 20 MG/2 ML VIAL IV PUSH SCH ×2 (07:58)
[2017-09-23] MEDS: METOPROLOL TARTRATE 25 MG TAB PO SCH ×2 (07:59→23:42)
[2017-09-23] MEDS: ALBUMIN 25% INJ 100 ML IV SCH ×3 (08:00→23:00)
[2017-09-23] MEDS: FAMOTIDINE 20 MG TAB PO SCH ×2 (08:00→23:42)
[2017-09-23] MEDS: METHADONE HCL 10 MG TAB PO SCH (08:00)
[2017-09-23] MEDS: DOCUSATE SODIUM 50 MG/SENNA 8.6 MG TAB PO SCH ×2 (08:00→21:00)
[2017-09-23] MEDS: SODIUM CHLORIDE 0.9% FLUSH 10 ML FLUSH IV FLUSH SCH ×2 (09:00→21:00)
[2017-09-23 09:49] LABS: BASOPHIL # 0.1 TH/MM3 (0-0.2); BASOPHIL % 0.9 % (0.0-2.0); EOSINOPHIL # 0.1 TH/MM3 (0-0.4); EOSINOPHIL % 0.8 % (0.0-4.0); HEMATOCRIT 28.7 % (35.0-46.0); HEMOGLOBIN 9.8 GM/DL (11.6-15.3); LYMPH % 12.9 % (9.0-44.0); LYMPHOCYTE # 0.9 TH/MM3 (1.0-4.8); MEAN CELL VOLUME 80.5 FL (80.0-100.0); MEAN CORPUSCULAR HEMOGLOBIN 27.4 PG (27.0-34.0); MEAN PLATELET VOLUME 9.7 FL (7.0-11.0); MONO % 3.8 % (0.0-8.0); MONOCYTE # 0.3 TH/MM3 (0-0.9); NEUT % 81.6 % (16.0-70.0); PLATELET COUNT 78 TH/MM3 (150-450); RED BLOOD COUNT 3.57 MIL/MM3 (4.00-5.30); RED CELL DISTRIBUTION WIDTH 18.4 % (11.6-17.2); WHITE BLOOD COUNT 7.4 TH/MM3 (4.0-11.0)
[2017-09-23 10:10] LABS: ALBUMIN 2.4 GM/DL (3.4-5.0); AST (GOT) 14 U/L (15-37); BICARBONATE 31.8 MEQ/L (21.0-32.0); BLOOD UREA NITROGEN 60 MG/DL (7-18); CHLORIDE 97 MEQ/L (98-107); GLOMERULAR FILTRATION RATE 13 ML/MIN (>89); GLUCOSE,RANDOM 88 MG/DL (74-106); SODIUM (NA) 138 MEQ/L (136-145)
[2017-09-23 10:12] LABS: ALT (GPT) 6 U/L (10-53)
[2017-09-23 10:13] LABS: ALKALINE PHOSPHATASE 70 U/L (45-117); TOTAL BILIRUBIN ADULT 0.6 MG/DL (0.2-1.0); TOTAL PROTEIN 6.3 GM/DL (6.4-8.2)
[2017-09-23 11:25] LABS: BANDS 11 % (0-6); LYMPHOCYTES 4 % (9-44); MONOCYTES 2 % (0-8); POLYS (SEG NEUTROPHILS) 83 % (16-70)
[2017-09-23 11:26] LABS: OVALOCYTES 1+ (NORMAL); TOXIC GRANULATION 1+ (NORMAL)
--- NOTE | 2017-09-23 14:13 | HHI.PR ---
Subjective Remarks Patient says she is feeling all right, however reports continued back pain. Denies any nausea or vomiting. Long discussion with mother at bedside. Continue antibiotics. Slight worsening in renal function. Objective Vital Signs Date Time Temp Pulse Resp B/P (MAP) Pulse Ox O2 Delivery O2 Flow Rate FiO2 09/23/17 13:00 98.2 76 18 142/81 (101) 93 09/23/17 08:43 98.4 80 18 143/86 (105) 91 09/23/17 04:00 97.8 73 18 148/70 (96) 92 09/23/17 04:00 81 09/23/17 00:00 98.3 75 16 126/75 (92) 94 09/23/17 00:00 72 09/22/17 23:00 98.3 93 16 128/93 (105) 93 09/22/17 22:30 76 20 138/70 (92) 97 09/22/17 22:00 79 20 143/74 (97) 100 09/22/17 21:00 78 09/22/17 21:00 78 20 144/72 (96) 97 09/22/17 20:54 20 09/22/17 20:00 76 20 143/78 (99) 98 09/22/17 20:00 76 09/22/17 19:00 74 09/22/17 19:00 98.1 75 20 148/71 (96) 100 09/22/17 16:00 98.1 74 19 147/71 (96) 98 09/22/17 16:00 74 I/O 09/22/17 09/22/17 09/22/17 09/23/17 09/23/17 09/23/17 07:00 15:00 23:00 07:00 15:00 23:00 Intake Total 440 ml 850 ml 300 ml Output Total 800 ml 300 ml Balance 440 ml 50 ml 0 ml Intake Oral 240 ml 650 ml 300 ml IV Total 200 ml 200 ml Output Urine Total 800 ml 300 ml # Voids 1 0 # Bowel Movements 1 1 1 Result Diagram: 09/23/1792909/23/17929 Objective Remarks GENERAL: She is lying in bed. Appears comfortable. Sleeping, wakes up for exam. SKIN: Warm and dry. HEAD: Normocephalic. EYES: No scleral icterus. No injection or drainage. NECK: Supple, trachea midline. No JVD. CARDIOVASCULAR: Regular rate and rhythm without murmurs, gallops, or rubs. RESPIRATORY: Breath sounds equal bilaterally. No accessory muscle use. GASTROINTESTINAL: Abdomen soft, non-tender, nondistended. MUSCULOSKELETAL: No cyanosis. Diffuse anasarca. Bilateral lower extremity abscesses which are dressed. BACK: Nontender without obvious deformity. No CVA tenderness. A/P Assessment and Plan 37-year-old female admitted with Severe Sepsis with shock and organ failure related to 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 Renal function is improved and appears stable. Diarrhea is present. Etiology of diarrhea may be withdraw. C. Diff screen ordered. Continue to monitor potassium levels and replace as needed. Acute encephalopathy Narcotic Withdraw On methadone 10 mg daily Percocet 10/325 mg p.o. every 4 hourly as needed for pain/withdraw Severe sepsis with multiorgan failure Acute Renal Failure Continue Bicarb drip at 150 ml/hr Follow creatinine Nephrology following Dan in place Septic pulmonary emboli Follow pulse ox Oxygen as needed IV oxacillin Tricuspid valve vegetation with severe TR Endocarditis Right lower leg abscess (septic emboli) IV oxacillin ID Following Abdominal pain Hepatosplenomegaly Hep C noted on serology P.o. diet as tolerated Acute kidney injury = Continued worsening. Nephrology following. Hypokalemia monitor and replace as needed = We will avoid replacement due to renal function. Continue to monitor. Vaginal discharge Negative STD evaluation Follow clinically Pancytopenia Thrombocytopenia Possible DIC (resolved) Improving Follow CBC = Platelet count improving. DVT Prophylaxis Bleed risk SCDs Discharge Planning Continues on IV antibiotics for endocarditis. John Burden MD September 23, 2017 14:13
--- NOTE | 2017-09-23 14:20 | HHI.NPPN ---
Subjective History of Present Illness Patient is a 37-year-old with IVDA and endocarditis with acute renal failure Review of Systems General Constitutional: Fatigue Musculoskeletal MS: Pain/Stiffness Objective Data Data Vital Signs Date Time Temp Pulse Resp B/P (MAP) Pulse Ox O2 Delivery O2 Flow Rate FiO2 09/23/17 13:00 98.2 76 18 142/81 (101) 93 09/23/17 08:43 98.4 80 18 143/86 (105) 91 09/23/17 04:00 97.8 73 18 148/70 (96) 92 09/23/17 04:00 81 09/23/17 00:00 98.3 75 16 126/75 (92) 94 09/23/17 00:00 72 09/22/17 23:00 98.3 93 16 128/93 (105) 93 09/22/17 22:30 76 20 138/70 (92) 97 09/22/17 22:00 79 20 143/74 (97) 100 09/22/17 21:00 78 09/22/17 21:00 78 20 144/72 (96) 97 09/22/17 20:54 20 09/22/17 20:00 76 20 143/78 (99) 98 09/22/17 20:00 76 09/22/17 19:00 74 09/22/17 19:00 98.1 75 20 148/71 (96) 100 09/22/17 16:00 98.1 74 19 147/71 (96) 98 09/22/17 16:00 74 -: 09/23/17 0930 09/23/17 0930 Physical Exam General Appearance: Pale Neck Neck Exam: Neck Supple Pulmonary Resp Exam: Decreased Bases Cardiology CV Exam: Regular Gastrointestinal/Abdomen GI Exam: Soft, Non-Tender, Distended, Bowel Sounds Hypoactive Integumentary Skin Exam: Ulcer(s) Extremeties Extremities Exam: Pitting Edema, Dependent Edema Neurologic Neuro Exam: Alert, Awake, Oriented Assessment/Plan Problem List: (1) Acute renal failure ICD Codes: N17.9 - Acute kidney failure, unspecified Plan: This is likely due to underlying endocarditis and severe infection Continue to monitor urine output Patient is dehydrated/ATN Albumin 25 g IV every 12 hourly as ordered UOP? Cr 3.8 K replaced Continue with diuretic Lasix 20 mg IV every 12 hourly d/w family possibility of dialysis endocarditis AV Vegetation TV Big mobile Vegetation ultrasound abdomen small amount ascites kidney size normal he has hepatosplenomegaly possible cirrhosis Follow BMP (2) Endocarditis ICD Codes: I38 - Endocarditis, valve unspecified Status: Acute Plan: Due to IVDA (3) Severe sepsis ICD Codes: A41.9 - Sepsis, unspecified organism; R65.20 - Severe sepsis without septic shock Status: Acute Plan: Staph aureus septicemia Azalea Gillette MD September 23, 2017 14:20
[2017-09-23] MEDS ORDERED: amLODIPine BESYLATE 5 MG TAB PO ONE (20:00)
[2017-09-23] MEDS: hydrALAZINE HCL 50 MG TAB PO SCH (23:43)
[2017-09-24] VITALS (10 sets, daily range): BP systolic 128–159; BP diastolic 84–106; PULSE 66–93; RESP 14–18; TEMP 97.2–98.6; O2SAT 92–94
[2017-09-24] MEDS: CHLORHEXIDINE GLUCONATE 2 % 1 PACK (2 CLOTHS) TOP SCH (03:35)
[2017-09-24] MEDS: OXACILLIN INJ 2 GM in SODIUM CHLORIDE 0.9% INJ 100 ML IV SCH ×2 (03:45→09:02)
[2017-09-24] MEDS: oxyCODONE/ACETAMINOPHEN 10 MG/325 MG TAB PO PRN ×3 (04:03→20:32)
[2017-09-24] MEDS: hydrALAZINE HCL 50 MG TAB PO SCH ×4 (05:18→20:32)
[2017-09-24 05:53] LABS: ALBUMIN 2.5 GM/DL (3.4-5.0); BICARBONATE 24.5 MEQ/L (21.0-32.0); CALCIUM 8.3 MG/DL (8.5-10.1); CREATININE 3.83 MG/DL (0.50-1.00); MAGNESIUM 2.1 MG/DL (1.5-2.5); PHOSPHORUS 7.4 MG/DL (2.5-4.9)
[2017-09-24 06:58] LABS: AUTOMATED NEUTROPHIL # 4.2 TH/MM3 (1.8-7.7); BASOPHIL % 0.4 % (0.0-2.0); EOSINOPHIL # 0.1 TH/MM3 (0-0.4); EOSINOPHIL % 1.4 % (0.0-4.0); HEMATOCRIT 27.4 % (35.0-46.0); HEMOGLOBIN 9.2 GM/DL (11.6-15.3); LYMPH % 16.3 % (9.0-44.0); LYMPHOCYTE # 0.9 TH/MM3 (1.0-4.8); MEAN CELL VOLUME 81.8 FL (80.0-100.0); MEAN CORPUSCULAR HEMOGLOBIN 27.4 PG (27.0-34.0); MEAN CORPUSCULAR HGB CONC 33.5 % (32.0-36.0); MEAN PLATELET VOLUME 7.1 FL (7.0-11.0); MONO % 3.4 % (0.0-8.0); MONOCYTE # 0.2 TH/MM3 (0-0.9); NEUT % 78.5 % (16.0-70.0); PLATELET COUNT 20 TH/MM3 (150-450); RED BLOOD COUNT 3.35 MIL/MM3 (4.00-5.30); RED CELL DISTRIBUTION WIDTH 18.3 % (11.6-17.2); WHITE BLOOD COUNT 5.4 TH/MM3 (4.0-11.0)
[2017-09-24 07:39] LABS: BANDS 6 % (0-6); BASOPHILS 2 % (0-2); LYMPHOCYTES 9 % (9-44); NEUTROPHIL # MANUAL DIFF 4.7 TH/MM3 (1.8-7.7); POLYS (SEG NEUTROPHILS) 81 % (16-70)
[2017-09-24 07:41] LABS: OVALOCYTES 1+ (NORMAL)
[2017-09-24] MEDS ORDERED: amLODIPine BESYLATE 5 MG TAB PO SCH (09:00)
[2017-09-24] MEDS: ALBUMIN 25% INJ 100 ML IV SCH ×2 (09:02→20:31)
[2017-09-24] MEDS: METHADONE HCL 10 MG TAB PO SCH (09:03)
[2017-09-24] MEDS: FUROSEMIDE 20 MG/2 ML VIAL IV PUSH SCH ×2 (09:03→20:33)
[2017-09-24] MEDS: FAMOTIDINE 20 MG TAB PO SCH ×2 (09:03→20:33)
[2017-09-24] MEDS: SODIUM CHLORIDE 0.9% FLUSH 10 ML FLUSH IV FLUSH SCH ×2 (09:03→20:31)
[2017-09-24] MEDS: DOCUSATE SODIUM 50 MG/SENNA 8.6 MG TAB PO SCH ×2 (09:04→20:32)
[2017-09-24] MEDS: METOPROLOL TARTRATE 25 MG TAB PO SCH ×2 (09:04→20:33)
--- NOTE | 2017-09-24 09:52 | HHI.IDPN ---
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 Patient also had another admission in July, and at that time her blood cultures grew methicillin sensitive staph aureus. She signed out AGAINST MEDICAL ADVICE again at that time. When she came in this time, her CBC showed pancytopenia. CT of the chest showed evidence of multiple pulmonary septic emboli. 2 blood cultures done are now showing staph aureus. She was also hypotensive, and also had an elevated creatinine. Her urine output has been low. CT of the head did not show any significant abnormality. CT of the abdomen and pelvis showed splenomegaly. Patient currently still lethargic, and moaning. She is complaining of pain throughout her whole body. She is on Celso-Synephrine. Infectious disease consultation has been requested to evaluate the patient. Notes reviewed Temps ok BP ok Creatinine continues to rise Still C/O diffuse pain BC with MSSA, last (+) BC 09/18 Has DIC, FBN better Platelets down to 20 again No bleeding Echo with large TV vegetation and also with AV vegetation Antibiotics Oxacillin Levaquin Current Medications Medications (Trade) Dose Ordered Sig/Amy Route Start Time Stop Time Status Last Admin (NS Flush) 2 ml UNSCH PRN IV FLUSH 09/16/17 17:00 09/22/17 21:11 (NS Flush) 2 ml BID IV FLUSH 09/16/17 21:00 09/24/17 09:03 (Albuterol Neb) 2.5 mg Q2HR NEB PRN INH 09/16/17 17:00 ([facility] [place] Nursing Information) 1 Q361D XX 09/16/17 17:00 09/16/17 20:22 (Chlorhexidine 2% Cloth) Taper DAILY@04 TOP 09/17/17 04:00 09/13/18 03:59 09/21/17 04:00 (Chlorhexidine 2% Cloth) 3 pack UNSCH PRN TOP 09/16/17 17:00 (Paula-Colace) 1 tab BID PO 09/16/17 21:00 09/24/17 09:04 (Milk Of Magnesia Liq) 30 ml Q12H PRN PO 09/16/17 17:00 09/19/17 11:19 (Senokot) 17.2 mg Q12H PRN PO 09/16/17 17:00 09/19/17 09:43 (Dulcolax Supp) 10 mg DAILY PRN RECTAL 09/16/17 17:00 09/19/17 11:20 (Lactulose Liq) 30 ml DAILY PRN PO 09/16/17 17:00 09/19/17 07:45 (Phenergan Inj) 25 mg Q6H PRN IM 09/16/17 17:00 09/21/17 05:29 (Percocet 10-325 Mg) 1 tab Q4H PRN PO 09/17/17 08:30 09/24/17 04:03 (Dolophine) 10 mg DAILY PO 09/17/17 09:00 09/24/17 09:03 Oxacillin Sodium 2 gm/Sodium Chloride 100 ml @ 200 mls/hr Q4H IV 09/18/17 12:00 09/24/17 09:02 (Levaquin) 500 mg Q48H PO 09/18/17 11:00 09/22/17 12:38 (Pepcid) 10 mg BID PO 09/19/17 21:00 09/24/17 09:03 (Lopressor) 12.5 mg Q12HR PO 09/20/17 00:30 09/24/17 09:04 Albumin Human 100 ml @ 60 mls/hr BID IV 09/21/17 21:00 09/24/17 09:02 (Lasix Inj) 20 mg BID IV PUSH 09/21/17 21:00 09/24/17 09:03 (Apresoline) 50 mg Q8HR PO 09/23/17 22:00 09/23/17 23:43 (Norvasc) 5 mg DAILY PO 09/24/17 09:00 09/24/17 09:04 Lines Line no evidence of infection Past Medical History Hepatitis C Tricuspid valve endocarditis Group A strep sepsis MSSA sepsis Known active IV drug use Allergies: Coded Allergies: No Known Allergies (Unverified Allergy, Unknown, 08/13/17) Objective . Vital Signs Date Time Temp Pulse Resp B/P (MAP) Pulse Ox O2 Delivery O2 Flow Rate FiO2 09/24/17 04:00 71 09/24/17 03:35 97.4 73 14 128/84 (99) 93 09/24/17 00:00 84 09/23/17 23:49 97.4 88 16 166/80 (108) 09/23/17 20:00 75 09/23/17 20:00 98.8 74 18 154/91 (112) 94 09/23/17 16:54 98.2 77 18 156/86 (109) 93 09/23/17 16:00 83 09/23/17 13:00 98.2 76 18 142/81 (101) 93 09/23/17 12:00 81 . Laboratory Tests Test 09/23/17 09:30 09/24/17 05:00 White Blood Count 7.4 TH/MM3 5.4 TH/MM3 Red Blood Count 3.57 MIL/MM3 3.35 MIL/MM3 Hemoglobin 9.8 GM/DL 9.2 GM/DL Hematocrit 28.7 % 27.4 % Mean Corpuscular Volume 80.5 FL 81.8 FL Mean Corpuscular Hemoglobin 27.4 PG 27.4 PG Mean Corpuscular Hemoglobin Concent 34.0 % 33.5 % Red Cell Distribution Width 18.4 % 18.3 % Platelet Count 78 TH/MM3 20 TH/MM3 Mean Platelet Volume 9.7 FL 7.1 FL Neutrophils (%) (Auto) 81.6 % 78.5 % Lymphocytes (%) (Auto) 12.9 % 16.3 % Monocytes (%) (Auto) 3.8 % 3.4 % Eosinophils (%) (Auto) 0.8 % 1.4 % Basophils (%) (Auto) 0.9 % 0.4 % Neutrophils # (Auto) 6.0 TH/MM3 4.2 TH/MM3 Lymphocytes # (Auto) 0.9 TH/MM3 0.9 TH/MM3 Monocytes # (Auto) 0.3 TH/MM3 0.2 TH/MM3 Eosinophils # (Auto) 0.1 TH/MM3 0.1 TH/MM3 Basophils # (Auto) 0.1 TH/MM3 0.0 TH/MM3 CBC Comment AUTO DIFF AUTO DIFF Differential Total Cells Counted 100 100 Neutrophils % (Manual) 83 % 81 % Band Neutrophils % 11 % 6 % Lymphocytes % 4 % 9 % Monocytes % 2 % Neutrophils # (Manual) 7.0 TH/MM3 4.7 TH/MM3 Differential Comment FINAL DIFF MANUAL FINAL DIFF MANUAL Toxic Granulation 1+ Platelet Estimate LOW RARE Platelet Morphology Comment ENLARGED NORMAL Ovalocytes 1+ 1+ Eosinophils % 2 % Basophils % 2 % Hematology Comments Laboratory Tests Test 09/22/17 12:20 09/23/17 09:30 09/24/17 05:00 Potassium Level 3.5 MEQ/L 3.4 MEQ/L 5.0 MEQ/L Blood Urea Nitrogen 60 MG/DL 55 MG/DL Creatinine 3.80 MG/DL 3.83 MG/DL Random Glucose 88 MG/DL 107 MG/DL Total Protein 6.3 GM/DL Albumin 2.4 GM/DL 2.5 GM/DL Calcium Level 8.0 MG/DL 8.3 MG/DL Alkaline Phosphatase 70 U/L Aspartate Amino Transf (AST/SGOT) 14 U/L Alanine Aminotransferase (ALT/SGPT) 6 U/L Total Bilirubin 0.6 MG/DL Sodium Level 138 MEQ/L 139 MEQ/L Chloride Level 97 MEQ/L 99 MEQ/L Carbon Dioxide Level 31.8 MEQ/L 24.5 MEQ/L Anion Gap 9 MEQ/L 16 MEQ/L Estimat Glomerular Filtration Rate 13 ML/MIN 13 ML/MIN B-Type Natriuretic Peptide 1463 PG/ML Phosphorus Level 7.4 MG/DL Magnesium Level 2.1 MG/DL Microbiology Date/Time Source Procedure Growth Status 09/21/17 16:44 Blood Peripheral Aerobic Blood Culture - Preliminary NO GROWTH IN 2 DAYS Resulted 09/21/17 16:44 Blood Peripheral Anaerobic Blood Culture - Preliminary NO GROWTH IN 2 DAYS Resulted Imaging Last Impressions Chest X-Ray 09/16/17 1504 Signed Impressions: Service Date/Time: Saturday, September 16, 2017 15:28 - CONCLUSION: 1. Patchy bilateral lower lobe airspace disease, more prominent on the right. Findings are concerning for multilobar pneumonia or aspiration. Zenon Busch MD Head CT 09/16/17 0000 Signed Impressions: Service Date/Time: Saturday, September 16, 2017 17:56 - CONCLUSION: 1. No acute intracranial abnormality. 2. Left maxillary and sphenoid sinus mucosal disease. Zenon Busch MD Chest CT 09/16/17 0000 Signed Impressions: Service Date/Time: Saturday, September 16, 2017 18:04 - CONCLUSION: 1. Small bilateral pleural effusions with dense bilateral lower lobe airspace consolidation. 2. Numerous bilateral inflammatory pulmonary nodules including cavitary nodules in the apices bilaterally. Findings are consistent with septic emboli. Zenon Busch MD Abdomen/Pelvis CT 09/16/17 0000 Signed Impressions: Service Date/Time: Saturday, September 16, 2017 18:04 - CONCLUSION: 1. Limited examination due to paucity of peritoneal fat and patient's overlying arms. 2. Hepatosplenomegaly with small amount of ascites. 3. Small to moderate amount of colonic stool without evidence for bowel obstruction. Zenon Busch MD Physical Exam GENERAL: Awake and alert, not in distress. SKIN: Warm and dry. No generalized rash, no ecchymoses and no evidence of embolic lesions. HEAD: Atraumatic. Normocephalic. No temporal wasting, or tenderness. EYES: [place] conjunctiva. No petechia or hemorrhage. Pupils equal, round and reactive to light. Extraocular movements full and intact. No scleral icterus. No injection or drainage. EARS, NOSE AND THROAT: Nose without bleeding or purulent nasal discharge. No sinus tenderness. Very dry oral mucosa. NECK: Trachea midline. Supple, no meningeal signs CARDIOVASCULAR: Regular rate and rhythm. No murmurs, rubs or gallops heard RESPIRATORY: Clear to auscultation. Breath sounds equal bilaterally. No rales , wheezing or rhonchi. Decreased breath sounds at the bases ABDOMEN: Distended, with diffuse abdominal tenderness, tympanitic on percussion. Bowel sounds present and normoactive. : Dan cath in place. L labia is swollen but not red EXTREMITIES: No clubbing, cyanosis. Has bilateral pitting pedal edema. NEUROLOGICAL: Grossly non-focal PSYCHIATRIC: Cooperative LINE: No evidence of infection Assessment & Plan Remarks IMPRESSION Sepsis with shock, due to endocarditis - BP stable - has MOSF - previously had GAS, then MSSA - now MSSA MSSA endocarditis - echo with large TV veg and now also with AV veg Has pulmonary septic emboli Has UTI Renal insufficiency, worsening Pancytopenia, improving - thrombocytopenia worse again Known very poor compliance to medical Rx DIC RECOMMENDATION Change IV Oxacillin to Ancef - maybe affecting platelet Continue Levaquin to have some pulmonary coverage Follow cultures Progression of infection due to poor compliance to medical treatment Follow CBC Monitor progress She will need a course of IV antibiotics for her endocarditis Milana Harp MD September 24, 2017 09:52
--- NOTE | 2017-09-24 10:25 | PD.ONC.PN ---
Subjective Subjective Remarks Resting in bed. Nurse at bedside. Objective Data Date Time Temp Pulse Resp B/P (MAP) Pulse Ox O2 Delivery O2 Flow Rate FiO2 09/24/17 04:00 71 09/24/17 03:35 97.4 73 14 128/84 (99) 93 09/24/17 00:00 84 09/23/17 23:49 97.4 88 16 166/80 (108) 09/23/17 20:00 75 09/23/17 20:00 98.8 74 18 154/91 (112) 94 09/23/17 16:54 98.2 77 18 156/86 (109) 93 09/23/17 16:00 83 09/23/17 13:00 98.2 76 18 142/81 (101) 93 09/23/17 12:00 81 09/24/17 09/24/17 09/24/17 07:00 15:00 23:00 Intake Total 100 ml Output Total 600 ml Balance -600 ml 100 ml Result Diagram: 09/24/17 0500 09/24/17 0500 Laboratory Results Laboratory Tests Test 09/24/17 05:00 White Blood Count 5.4 TH/MM3 Red Blood Count 3.35 MIL/MM3 Hemoglobin 9.2 GM/DL Hematocrit 27.4 % Mean Corpuscular Volume 81.8 FL Mean Corpuscular Hemoglobin 27.4 PG Mean Corpuscular Hemoglobin Concent 33.5 % Red Cell Distribution Width 18.3 % Platelet Count 20 TH/MM3 Mean Platelet Volume 7.1 FL Neutrophils (%) (Auto) 78.5 % Lymphocytes (%) (Auto) 16.3 % Monocytes (%) (Auto) 3.4 % Eosinophils (%) (Auto) 1.4 % Basophils (%) (Auto) 0.4 % Neutrophils # (Auto) 4.2 TH/MM3 Lymphocytes # (Auto) 0.9 TH/MM3 Monocytes # (Auto) 0.2 TH/MM3 Eosinophils # (Auto) 0.1 TH/MM3 Basophils # (Auto) 0.0 TH/MM3 CBC Comment AUTO DIFF Differential Total Cells Counted 100 Neutrophils % (Manual) 81 % Band Neutrophils % 6 % Lymphocytes % 9 % Eosinophils % 2 % Basophils % 2 % Neutrophils # (Manual) 4.7 TH/MM3 Differential Comment FINAL DIFF MANUAL Platelet Estimate RARE Platelet Morphology Comment NORMAL Ovalocytes 1+ Hematology Comments Blood Urea Nitrogen 55 MG/DL Creatinine 3.83 MG/DL Random Glucose 107 MG/DL Albumin 2.5 GM/DL Calcium Level 8.3 MG/DL Phosphorus Level 7.4 MG/DL Magnesium Level 2.1 MG/DL Sodium Level 139 MEQ/L Potassium Level 5.0 MEQ/L Chloride Level 99 MEQ/L Carbon Dioxide Level 24.5 MEQ/L Anion Gap 16 MEQ/L Estimat Glomerular Filtration Rate 13 ML/MIN Culture Results Microbiology Date/Time Source Procedure Growth Status 09/21/17 16:44 Blood Peripheral Aerobic Blood Culture - Preliminary NO GROWTH IN 2 DAYS Resulted 09/21/17 16:44 Blood Peripheral Anaerobic Blood Culture - Preliminary NO GROWTH IN 2 DAYS Resulted Administered Medications Medications (Trade) Dose Ordered Sig/Amy Route PRN Reason Start Time Stop Time Status Last Admin Dose Admin Sodium Chloride (NS Flush) 2 ml UNSCH PRN IV FLUSH FLUSH AFTER USING IV ACCESS 09/16/17 17:00 09/22/17 21:11 Sodium Chloride (NS Flush) 2 ml BID IV FLUSH 09/16/17 21:00 09/24/17 09:03 Miscellaneous Information ([facility] [place] [facility]) 1 Q361D XX 09/16/17 17:00 09/16/17 20:22 Chlorhexidine Gluconate (Chlorhexidine 2% Cloth) Taper DAILY@04 TOP 09/17/17 04:00 09/13/18 03:59 09/21/17 04:00 Senna/Docusate Sodium (Paula-Colace) 1 tab BID PO 09/16/17 21:00 09/24/17 09:04 Magnesium Hydroxide (Milk Of Magnesia Liq) 30 ml Q12H PRN PO Mild constipation 09/16/17 17:00 09/19/17 11:19 Sennosides (Senokot) 17.2 mg Q12H PRN PO Moderate constipation 09/16/17 17:00 09/19/17 09:43 Bisacodyl (Dulcolax Supp) 10 mg DAILY PRN RECTAL SEVERE CONSITIPATION 09/16/17 17:00 09/19/17 11:20 Lactulose (Lactulose Liq) 30 ml DAILY PRN PO SEVERE CONSITIPATION 09/16/17 17:00 09/19/17 07:45 Promethazine HCl (Phenergan Inj) 25 mg Q6H PRN IM NAUSEA/VOMITING 09/16/17 17:00 09/21/17 05:29 Oxycodone/ Acetaminophen (Percocet 10-325 Mg) 1 tab Q4H PRN PO pain scale 5-10 09/17/17 08:30 09/24/17 04:03 Methadone HCl (Dolophine) 10 mg DAILY PO 09/17/17 09:00 09/24/17 09:03 Levofloxacin (Levaquin) 500 mg Q48H PO 09/18/17 11:00 09/22/17 12:38 Famotidine (Pepcid) 10 mg BID PO 09/19/17 21:00 09/24/17 09:03 Metoprolol Tartrate (Lopressor) 12.5 mg Q12HR PO 09/20/17 00:30 09/24/17 09:04 Albumin Human 100 ml @ 60 mls/hr BID IV 09/21/17 21:00 09/24/17 09:02 Furosemide (Lasix Inj) 20 mg BID IV PUSH 09/21/17 21:00 09/24/17 09:03 Hydralazine HCl (Apresoline) 50 mg Q8HR PO 09/23/17 22:00 09/23/17 23:43 Amlodipine Besylate (Norvasc) 5 mg DAILY PO 09/24/17 09:00 09/24/17 09:04 Objective Remarks GENERAL: Well-nourished, well-developed patient. SKIN: Warm and dry. HEAD: Normocephalic. EYES: No scleral icterus. No injection or drainage. NECK: Supple, trachea midline. No JVD or lymphadenopathy. LYMPHATIC: No adenopathy. RESPIRATORY: No accessory muscle use. NEUROLOGICAL: No obvious focal deficit. Awake, alert, and oriented x3. Assessment/Plan Assessment 1. Coagulopathy: resolving, due to DIC due to sepsis, endocarditis. 2. Thrombocytopenia: initially improving. However today platelet count is declined to 20K today. Will recheck fibrinogen, coag panel. Contributing factors including sepsis, endocarditis, hypersplenism. 3. Anemia: component of inflammatory anemia. 4. Endocarditis, sepsis: currently on antibiotic therapy. ID team following closely. 5. History of Maki Anglin MD September 24, 2017 10:25
[2017-09-24] MEDS: LEVOFLOXACIN 500 MG TAB PO SCH (10:38)
--- NOTE | 2017-09-24 11:42 | HHI.PR ---
Subjective Remarks Patient sleeping during my exam, however wakes up when I discussed the possibility of stopping her narcotics. She reports continued back pain. Denies any chest pain. Objective Vital Signs Date Time Temp Pulse Resp B/P (MAP) Pulse Ox O2 Delivery O2 Flow Rate FiO2 09/24/17 04:00 71 09/24/17 03:35 97.4 73 14 128/84 (99) 93 09/24/17 00:00 84 09/23/17 23:49 97.4 88 16 166/80 (108) 09/23/17 20:00 75 09/23/17 20:00 98.8 74 18 154/91 (112) 94 09/23/17 16:54 98.2 77 18 156/86 (109) 93 09/23/17 16:00 83 09/23/17 13:00 98.2 76 18 142/81 (101) 93 09/23/17 12:00 81 I/O 09/23/17 09/23/17 09/23/17 09/24/17 09/24/17 09/24/17 06:59 14:59 22:59 06:59 14:59 22:59 Intake Total 400 ml 240 ml 100 ml Output Total 300 ml 600 ml Balance 100 ml 240 ml -600 ml 100 ml Intake Oral 300 ml 240 ml IV Total 100 ml 100 ml Output Urine Total 300 ml 600 ml # Voids 0 2 # Bowel Movements 1 Result Diagram: 09/24/17 0500 09/24/17 0500 Objective Remarks GENERAL: She is lying in bed. Appears comfortable. Sleeping, wakes up for exam. SKIN: Warm and dry. HEAD: Normocephalic. EYES: No scleral icterus. No injection or drainage. NECK: Supple, trachea midline. No JVD. CARDIOVASCULAR: Regular rate and rhythm without murmurs, gallops, or rubs. RESPIRATORY: Breath sounds equal bilaterally. No accessory muscle use. GASTROINTESTINAL: Abdomen soft, non-tender, nondistended. MUSCULOSKELETAL: No cyanosis. Diffuse anasarca. Bilateral lower extremity abscesses which are dressed. BACK: Nontender without obvious deformity. No CVA tenderness. A/P Assessment and Plan 37-year-old female admitted with Severe Sepsis with shock and organ failure related to 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 Renal function is improved and appears stable. Diarrhea is present. Etiology of diarrhea may be withdraw. C. Diff screen ordered. Continue to monitor potassium levels and replace as needed. Acute encephalopathy Narcotic Withdraw On methadone 10 mg daily Percocet 10/325 mg p.o. every 4 hourly as needed for pain/withdraw Severe sepsis with multiorgan failure Acute Renal Failure, cardiorenal syndrome Anion gap Diastolic CHF secondary to valvulopathy. Pulmonary hypertension Follow creatinine Nephrology following = 09/24 Dan out. Creatinine stabilized 3.8. Anion gap on labs 16. Check lactate and urine for ketones. Nephrology following. Fluid restrictions, afterload reduction. Appreciate middleware consultant assistance. Continue to monitor. Septic pulmonary emboli Follow pulse ox Oxygen as needed IV oxacillin Tricuspid valve vegetation with severe TR Endocarditis Right lower leg abscess (septic emboli) IV oxacillin ID Following Abdominal pain Hepatosplenomegaly Hep C noted on serology P.o. diet as tolerated Acute kidney injury = Continued worsening. Nephrology following. Hypokalemia monitor and replace as needed = We will avoid replacement due to renal function. Continue to monitor. Vaginal discharge Negative STD evaluation Follow clinically Pancytopenia Thrombocytopenia Possible DIC (resolved) Improving Follow CBC = Platelet count improving. DVT Prophylaxis Bleed risk SCDs Discharge Planning Continues on IV antibiotics for endocarditis. John Burden MD September 24, 2017 11:42
[2017-09-24] MEDS: ceFAZolin 2 GM PREMIX 50 ML IV SCH ×2 (11:43→20:32)
[2017-09-24] MEDS ORDERED: DEXTROSE 10% INJ 1,000 ML IV SCH (12:00)
[2017-09-24] MEDS ORDERED: THIAMINE HCL 100 MG TAB PO ONE (12:00)
[2017-09-24 12:14] LABS: PLATELET COUNT 88 TH/MM3 (150-450)
[2017-09-24 12:24] LABS: INTERNATIONAL NORMALIZED RATIO 1.1 RATIO; PROTHROMBIN TIME - PATIENT 11.4 SEC (9.8-11.6)
--- NOTE | 2017-09-24 12:24 | HHI.NPPN ---
Subjective History of Present Illness Patient is a 37-year-old with IVDA and endocarditis with acute renal failure Review of Systems General Constitutional: Fatigue Musculoskeletal MS: Pain/Stiffness Objective Data Data 09/24/17 09/25/17 19:00 07:00 Intake Total 100 ml Balance 100 ml IV Total 100 ml Vital Signs Date Time Temp Pulse Resp B/P (MAP) Pulse Ox O2 Delivery O2 Flow Rate FiO2 09/24/17 08:01 97.3 78 17 147/106 (120) 93 09/24/17 04:00 71 09/24/17 03:35 97.4 73 14 128/84 (99) 93 09/24/17 00:00 84 09/23/17 23:49 97.4 88 16 166/80 (108) 09/23/17 20:00 75 09/23/17 20:00 98.8 74 18 154/91 (112) 94 09/23/17 16:54 98.2 77 18 156/86 (109) 93 09/23/17 16:00 83 09/23/17 13:00 98.2 76 18 142/81 (101) 93 -: 09/24/17 1151 09/24/17 0500 Physical Exam General Appearance: Pale Neck Neck Exam: Neck Supple Pulmonary Resp Exam: Decreased Bases Cardiology CV Exam: Regular Gastrointestinal/Abdomen GI Exam: Soft, Non-Tender, Distended, Bowel Sounds Hypoactive Integumentary Skin Exam: Ulcer(s) Extremeties Extremities Exam: Pitting Edema, Dependent Edema Neurologic Neuro Exam: Alert, Awake, Oriented Assessment/Plan Problem List: (1) Acute renal failure ICD Codes: N17.9 - Acute kidney failure, unspecified Plan: This is likely due to underlying endocarditis and severe infection Continue to monitor urine output Patient is dehydrated/ATN Albumin 25 g IV every 12 hourly as ordered UOP? Cr 3.83 Continue with diuretic Lasix 20 mg IV every 12 hourly d/w family possibility of dialysis request Vascath insertion by am PhosLo 667 mg 2 TID with meals endocarditis AV Vegetation TV Big mobile Vegetation ultrasound abdomen small amount ascites kidney size normal he has hepatosplenomegaly possible cirrhosis Follow BMP (2) Endocarditis ICD Codes: I38 - Endocarditis, valve unspecified Status: Acute Plan: Due to IVDA (3) Severe sepsis ICD Codes: A41.9 - Sepsis, unspecified organism; R65.20 - Severe sepsis without septic shock Status: Acute Plan: Staph aureus septicemia Azalea Gillette MD September 24, 2017 12:24
[2017-09-24] MEDS: CALCIUM ACETATE 667 MG CAP PO SCH ×2 (13:07→17:43)
[2017-09-24 16:31] LABS: AUTOMATED NEUTROPHIL # 7.9 TH/MM3 (1.8-7.7); BASOPHIL % 0.5 % (0.0-2.0); EOSINOPHIL # 0.1 TH/MM3 (0-0.4); HEMATOCRIT 29.9 % (35.0-46.0); LYMPH % 14.1 % (9.0-44.0); LYMPHOCYTE # 1.4 TH/MM3 (1.0-4.8); MEAN CELL VOLUME 80.4 FL (80.0-100.0); MEAN CORPUSCULAR HEMOGLOBIN 26.9 PG (27.0-34.0); MEAN CORPUSCULAR HGB CONC 33.5 % (32.0-36.0); MEAN PLATELET VOLUME 10.3 FL (7.0-11.0); MONOCYTE # 0.4 TH/MM3 (0-0.9); NEUT % 80.4 % (16.0-70.0); PLATELET COUNT 102 TH/MM3 (150-450); RED BLOOD COUNT 3.71 MIL/MM3 (4.00-5.30); RED CELL DISTRIBUTION WIDTH 18.6 % (11.6-17.2); WHITE BLOOD COUNT 9.8 TH/MM3 (4.0-11.0)
[2017-09-24 16:54] LABS: CALCIUM 8.1 MG/DL (8.5-10.1); CREATININE 3.79 MG/DL (0.50-1.00)
--- NOTE | 2017-09-24 22:19 | MB ---
cc: Wale Nicole MD DATE: 09/24/2017 HISTORY OF PRESENT ILLNESS: This is a 37-year-old lady with ongoing endocarditis with a vegetation on the aortic valve, known IV drug abuser, presented on 09/16/2017 with complaints of fever and reported altered mental status. She has been seen in the emergency department multiple times and has signed out AMA multiple times. She currently appears lethargic. She is sleeping. She does not appear in distress, but complains of chest pain, shortness of breath. Otherwise, denies any fevers, chills, cough, GI or bleeding, PND, orthopnea, syncope or dizziness. PAST MEDICAL HISTORY: Per History of Present Illness. She has a history of anxiety, headaches, hepatitis C, seizure disorder. SOCIAL HISTORY: She smokes a pack of cigarettes a day. Uses IV heroin and cocaine. Denies alcohol use. ALLERGIES: NONE. MEDICATIONS IN THE HOSPITAL: 1. Amlodipine 10 mg daily. 2. Thiamine 100 mg daily. 3. Calcium acetate 1334 mg t.i.d. 4. Cefazolin IV q. 12 hours. 5. Hydralazine 50 mg q. 8 hours. 6. Furosemide 20 mg IV b.i.d. 7. Metoprolol 12.5 q. 12 hours. 8. Famotidine 10 mg b.i.d. 9. Levofloxacin 500 mg p.o. q 48 hours. 10. Methadone 10 mg daily. PHYSICAL EXAMINATION: VITAL SIGNS: Blood pressure 156/86, pulse 78, respiratory rate 17, temperature 97.2. GENERAL: She is alert and oriented x 3 and in no acute distress. NECK: Supple. No JVD. No bruit. CARDIOVASCULAR: S1, S2. No murmurs, rubs or gallops. LUNGS: Clear to auscultation bilaterally. ABDOMEN: Soft, nontender, nondistended with positive bowel sounds. EXTREMITIES: No extremity edema. IMAGING: Head CT on 09/16/2017 shows no acute intracranial abnormality. Left maxillary and sphenoid sinus mucosal disease. Chest CT on 09/16/2017, small bilateral pleural effusions, with dense bilateral lower lobe airspace consolidation. Numerous bilateral inflammatory pulmonary nodules, including cavitary nodules in the apices bilaterally. Findings are consistent with septic emboli. Abdominopelvic CT, limited examination due to paucity of peritoneal fat in the patient's overlying arms. Hepatosplenomegaly with small amount of ascites. Small to moderate amount of colonic stool, without evidence of bowel obstruction. Chest x-ray 09/16/2017, patchy bilateral lower lobe airspace disease, more prominent on the right. Findings are concerning for multilobar pneumonia or aspiration. Lower extremity ultrasound, no evidence of DVT. Abdominal ultrasound, diffusely enlarged liver with increased echogenicity suggestive of fatty infiltration and/or hepatocellular disease. Small amount of ascites in the upper abdomen. Thickening of the gallbladder wall at 7 mm. Spleen is diffusely enlarged with several hypoechoic densities within the spleen. There are splenic granulomas present. ECHOCARDIOGRAM: Read by Dr. Rodríguez on 09/21/2017 shows EF of 50-55%, mild MR. Findings consistent with vegetation on the noncoronary cusp of the aortic valve, moderate eccentric aortic valve regurgitation. PA pressure 58.3 mmHg. Large mobile vegetation on the tricuspid valve. Moderate to severe tricuspid valve regurgitation. Large pleural effusion. LABORATORY DATA: White count 9.8, hemoglobin 10.0, hematocrit 29.9, platelet count 102. Blood gas on arrival to the ER, pH 7.40, pCO2 of 31, pO2 100 on 3 liters nasal cannula. INR is 1.1. Sodium 141, potassium 3.2, chloride 96, bicarbonate 30, BUN 54, creatinine 3.79. BNP is 1463, magnesium 2.1. Toxicology positive for cocaine, opiates. SHE HAS THE FOLLOWING DIAGNOSES: 1. Endocarditis. 2. Disseminated intravascular coagulation. 3. Thrombocytopenia. 4. Anemia. 5. Chronic renal sufficiency. 6. Acute renal failure. 7. Hypoxia. 8. Decompensated congestive heart failure. 9. Moderate aortic insufficiency. 10. Moderate pulmonary hypertension. 11. Intravenous drug abuse. 12. Hypokalemia. 13. Polysubstance abuse. 14. Noncompliance. 15. Non-ST elevation myocardial infarction. 16. Elevated liver function tests. 17. Ascites. 18. Hepatomegaly. 19. Septic pulmonary emboli. PLAN: From a cardiovascular standpoint, treatment options are limited due to her DIC, severe thrombocytopenia, which is resolving and acute on chronic renal insufficiency and probably most importantly, her noncompliance with her medical care, with multiple AMAs on record and continued IV drug abuse. I doubt she would be a candidate for valve replacement surgery, but we will consult CT surgery to get their opinion. She has multiple comorbidities, but she is young and appears to be showing some clinical improvement, but it will be difficult with all her comorbidities and particularly her noncompliance to recover from her injuries. Would consider getting a palliative care consult at some point, particularly if transient renal function, liver function, LV function do not improve or worsen. MD ZANDER Silva/DIANNE , 08:16 PM , 10:18 PM
[2017-09-25] VITALS (10 sets, daily range): BP systolic 125–166; BP diastolic 68–92; PULSE 83–102; RESP 16–20; TEMP 97.4–98.5; O2SAT 91–100
[2017-09-25] MEDS: oxyCODONE/ACETAMINOPHEN 10 MG/325 MG TAB PO PRN ×5 (01:50→21:58)
[2017-09-25] MEDS: CHLORHEXIDINE GLUCONATE 2 % 1 PACK (2 CLOTHS) TOP SCH ×2 (03:20→23:56)
[2017-09-25] MEDS: hydrALAZINE HCL 50 MG TAB PO SCH (06:13)
[2017-09-25] MEDS: SODIUM CHLORIDE 0.9% FLUSH 10 ML FLUSH IV FLUSH SCH ×2 (09:00→20:39)
[2017-09-25] MEDS: DOCUSATE SODIUM 50 MG/SENNA 8.6 MG TAB PO SCH ×2 (09:00→20:38)
[2017-09-25 09:06] LABS: AUTOMATED NEUTROPHIL # 9.1 TH/MM3 (1.8-7.7); BASOPHIL # 0.1 TH/MM3 (0-0.2); BASOPHIL % 0.5 % (0.0-2.0); EOSINOPHIL # 0.1 TH/MM3 (0-0.4); EOSINOPHIL % 0.7 % (0.0-4.0); HEMATOCRIT 27.6 % (35.0-46.0); HEMOGLOBIN 9.3 GM/DL (11.6-15.3); LYMPH % 10.5 % (9.0-44.0); LYMPHOCYTE # 1.1 TH/MM3 (1.0-4.8); MEAN CORPUSCULAR HEMOGLOBIN 27.3 PG (27.0-34.0); MEAN CORPUSCULAR HGB CONC 33.6 % (32.0-36.0); MEAN PLATELET VOLUME 9.3 FL (7.0-11.0); MONO % 3.7 % (0.0-8.0); MONOCYTE # 0.4 TH/MM3 (0-0.9); NEUT % 84.6 % (16.0-70.0); PLATELET COUNT 109 TH/MM3 (150-450); RED CELL DISTRIBUTION WIDTH 18.6 % (11.6-17.2); WHITE BLOOD COUNT 10.8 TH/MM3 (4.0-11.0)
[2017-09-25] MEDS: ALBUMIN 25% INJ 100 ML IV SCH ×2 (09:11→20:37)
[2017-09-25] MEDS: THIAMINE HCL 100 MG TAB PO SCH (09:11)
[2017-09-25] MEDS: FAMOTIDINE 20 MG TAB PO SCH ×2 (09:11→20:38)
[2017-09-25] MEDS: CALCIUM ACETATE 667 MG CAP PO SCH ×3 (09:11→17:26)
[2017-09-25] MEDS: amLODIPine BESYLATE 5 MG TAB PO SCH (09:12)
[2017-09-25] MEDS: METOPROLOL TARTRATE 25 MG TAB PO SCH ×2 (09:12→20:38)
[2017-09-25] MEDS: METHADONE HCL 10 MG TAB PO SCH (09:12)
[2017-09-25] MEDS: FUROSEMIDE 20 MG/2 ML VIAL IV PUSH SCH (09:13)
--- NOTE | 2017-09-25 09:16 | HHI.IDPN ---
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 Patient also had another admission in July, and at that time her blood cultures grew methicillin sensitive staph aureus. She signed out AGAINST MEDICAL ADVICE again at that time. When she came in this time, her CBC showed pancytopenia. CT of the chest showed evidence of multiple pulmonary septic emboli. 2 blood cultures done are now showing staph aureus. She was also hypotensive, and also had an elevated creatinine. Her urine output has been low. CT of the head did not show any significant abnormality. CT of the abdomen and pelvis showed splenomegaly. Patient currently still lethargic, and moaning. She is complaining of pain throughout her whole body. She is on Celso-Synephrine. Infectious disease consultation has been requested to evaluate the patient. Notes reviewed Temps ok BP ok Creatinine lower C/O some mild SOB Cardiology notes reviewed CTS consult ordered - pending BC with MSSA, last (+) BC 09/18 Has DIC, FBN better Platelets improving No bleeding Echo with large TV vegetation and also with AV vegetation Antibiotics Ancef Levaquin Current Medications Medications (Trade) Dose Ordered Sig/Amy Route Start Time Stop Time Status Last Admin (NS Flush) 2 ml UNSCH PRN IV FLUSH 09/16/17 17:00 09/22/17 21:11 (NS Flush) 2 ml BID IV FLUSH 09/16/17 21:00 09/24/17 20:31 (Albuterol Neb) 2.5 mg Q2HR NEB PRN INH 09/16/17 17:00 ([facility]) 1 Q361D XX 09/16/17 17:00 09/16/17 20:22 (Chlorhexidine 2% Cloth) Taper DAILY@04 TOP 09/17/17 04:00 09/13/18 03:59 09/21/17 04:00 (Chlorhexidine 2% Cloth) 3 pack UNSCH PRN TOP 09/16/17 17:00 (Paula-Colace) 1 tab BID PO 09/16/17 21:00 09/24/17 20:32 (Milk Of Magnesia Liq) 30 ml Q12H PRN PO 09/16/17 17:00 09/19/17 11:19 (Senokot) 17.2 mg Q12H PRN PO 09/16/17 17:00 09/19/17 09:43 (Dulcolax Supp) 10 mg DAILY PRN RECTAL 09/16/17 17:00 09/19/17 11:20 (Lactulose Liq) 30 ml DAILY PRN PO 09/16/17 17:00 09/19/17 07:45 (Phenergan Inj) 25 mg Q6H PRN IM 09/16/17 17:00 09/21/17 05:29 (Percocet 10-325 Mg) 1 tab Q4H PRN PO 09/17/17 08:30 09/25/17 06:14 (Dolophine) 10 mg DAILY PO 09/17/17 09:00 09/24/17 09:03 (Levaquin) 500 mg Q48H PO 09/18/17 11:00 09/24/17 10:38 (Pepcid) 10 mg BID PO 09/19/17 21:00 09/24/17 20:33 (Lopressor) 12.5 mg Q12HR PO 09/20/17 00:30 09/24/17 20:33 Albumin Human 100 ml @ 60 mls/hr BID IV 09/21/17 21:00 09/24/17 20:31 (Lasix Inj) 20 mg BID IV PUSH 09/21/17 21:00 09/24/17 20:33 (Apresoline) 50 mg Q8HR PO 09/23/17 22:00 09/25/17 06:13 Cefazolin Sodium/ Dextrose 50 ml @ 100 mls/hr Q12H IV 09/24/17 10:00 09/24/17 20:32 (Norvasc) 10 mg DAILY PO 09/25/17 09:00 Dextrose 1,000 ml @ 30 mls/hr Q24H IV 09/24/17 12:00 09/24/17 12:17 (Vitamin B1) 100 mg DAILY PO 09/25/17 09:00 (Phoslo) 1,334 mg TID PO 09/24/17 13:00 09/24/17 17:43 Lines Line no evidence of infection Past Medical History Hepatitis C Tricuspid valve endocarditis Group A strep sepsis MSSA sepsis Known active IV drug use Allergies: Coded Allergies: No Known Allergies (Unverified Allergy, Unknown, 08/13/17) Objective . Vital Signs Date Time Temp Pulse Resp B/P (MAP) Pulse Ox O2 Delivery O2 Flow Rate FiO2 09/25/17 08:00 98.1 89 20 141/73 (95) 91 09/25/17 04:00 98.5 85 18 166/92 (116) 93 09/25/17 04:00 86 09/25/17 00:00 98.2 89 18 161/83 (109) 93 09/25/17 00:00 83 09/24/17 20:00 98.6 93 18 158/93 (114) 92 09/24/17 20:00 92 09/24/17 16:01 97.2 78 17 156/86 (109) 94 09/24/17 16:00 78 09/24/17 12:01 97.3 82 17 159/88 (111) 93 09/24/17 12:00 66 . Laboratory Tests Test 09/23/17 09:30 09/24/17 05:00 09/24/17 11:51 09/24/17 15:38 White Blood Count 7.4 TH/MM3 5.4 TH/MM3 9.8 TH/MM3 Red Blood Count 3.57 MIL/MM3 3.35 MIL/MM3 3.71 MIL/MM3 Hemoglobin 9.8 GM/DL 9.2 GM/DL 10.0 GM/DL Hematocrit 28.7 % 27.4 % 29.9 % Mean Corpuscular Volume 80.5 FL 81.8 FL 80.4 FL Mean Corpuscular Hemoglobin 27.4 PG 27.4 PG 26.9 PG Mean Corpuscular Hemoglobin Concent 34.0 % 33.5 % 33.5 % Red Cell Distribution Width 18.4 % 18.3 % 18.6 % Platelet Count 78 TH/MM3 20 TH/MM3 88 TH/MM3 102 TH/MM3 Mean Platelet Volume 9.7 FL 7.1 FL 10.3 FL Neutrophils (%) (Auto) 81.6 % 78.5 % 80.4 % Lymphocytes (%) (Auto) 12.9 % 16.3 % 14.1 % Monocytes (%) (Auto) 3.8 % 3.4 % 4.0 % Eosinophils (%) (Auto) 0.8 % 1.4 % 1.0 % Basophils (%) (Auto) 0.9 % 0.4 % 0.5 % Neutrophils # (Auto) 6.0 TH/MM3 4.2 TH/MM3 7.9 TH/MM3 Lymphocytes # (Auto) 0.9 TH/MM3 0.9 TH/MM3 1.4 TH/MM3 Monocytes # (Auto) 0.3 TH/MM3 0.2 TH/MM3 0.4 TH/MM3 Eosinophils # (Auto) 0.1 TH/MM3 0.1 TH/MM3 0.1 TH/MM3 Basophils # (Auto) 0.1 TH/MM3 0.0 TH/MM3 0.0 TH/MM3 CBC Comment AUTO DIFF AUTO DIFF DIFF FINAL Differential Total Cells Counted 100 100 Neutrophils % (Manual) 83 % 81 % Band Neutrophils % 11 % 6 % Lymphocytes % 4 % 9 % Monocytes % 2 % Neutrophils # (Manual) 7.0 TH/MM3 4.7 TH/MM3 Differential Comment FINAL DIFF MANUAL FINAL DIFF MANUAL Toxic Granulation 1+ Platelet Estimate LOW RARE Platelet Morphology Comment ENLARGED NORMAL Ovalocytes 1+ 1+ Eosinophils % 2 % Basophils % 2 % Hematology Comments Blood Smear Pathologist Review Haptoglobin 188 MG/DL Test 09/25/17 08:21 Laboratory Tests Test 09/23/17 09:30 09/24/17 05:00 09/24/17 11:51 09/24/17 15:38 Blood Urea Nitrogen 60 MG/DL 55 MG/DL 54 MG/DL Creatinine 3.80 MG/DL 3.83 MG/DL 3.79 MG/DL Random Glucose 88 MG/DL 107 MG/DL 81 MG/DL Total Protein 6.3 GM/DL Albumin 2.4 GM/DL 2.5 GM/DL Calcium Level 8.0 MG/DL 8.3 MG/DL 8.1 MG/DL Alkaline Phosphatase 70 U/L Aspartate Amino Transf (AST/SGOT) 14 U/L Alanine Aminotransferase (ALT/SGPT) 6 U/L Total Bilirubin 0.6 MG/DL Sodium Level 138 MEQ/L 139 MEQ/L 141 MEQ/L Potassium Level 3.4 MEQ/L 5.0 MEQ/L 3.2 MEQ/L Chloride Level 97 MEQ/L 99 MEQ/L 96 MEQ/L Carbon Dioxide Level 31.8 MEQ/L 24.5 MEQ/L 30.0 MEQ/L Anion Gap 9 MEQ/L 16 MEQ/L 15 MEQ/L Estimat Glomerular Filtration Rate 13 ML/MIN 13 ML/MIN 13 ML/MIN B-Type Natriuretic Peptide 1463 PG/ML Phosphorus Level 7.4 MG/DL Magnesium Level 2.1 MG/DL Lactic Acid Level 0.9 mmol/L Lactate Dehydrogenase 233 U/L Test 09/25/17 08:21 Imaging Last Impressions Chest X-Ray 09/16/17 1504 Signed Impressions: Service Date/Time: Saturday, September 16, 2017 15:28 - CONCLUSION: 1. Patchy bilateral lower lobe airspace disease, more prominent on the right. Findings are concerning for multilobar pneumonia or aspiration. Zeonn Busch MD Head CT 09/16/17 0000 Signed Impressions: Service Date/Time: Saturday, September 16, 2017 17:56 - CONCLUSION: 1. No acute intracranial abnormality. 2. Left maxillary and sphenoid sinus mucosal disease. Zenon Busch MD Chest CT 09/16/17 0000 Signed Impressions: Service Date/Time: Saturday, September 16, 2017 18:04 - CONCLUSION: 1. Small bilateral pleural effusions with dense bilateral lower lobe airspace consolidation. 2. Numerous bilateral inflammatory pulmonary nodules including cavitary nodules in the apices bilaterally. Findings are consistent with septic emboli. Zenon Busch MD Abdomen/Pelvis CT 09/16/17 0000 Signed Impressions: Service Date/Time: Saturday, September 16, 2017 18:04 - CONCLUSION: 1. Limited examination due to paucity of peritoneal fat and patient's overlying arms. 2. Hepatosplenomegaly with small amount of ascites. 3. Small to moderate amount of colonic stool without evidence for bowel obstruction. Zenon Busch MD Physical Exam GENERAL: Awake and alert, not in distress. SKIN: Warm and dry. No generalized rash, no ecchymoses and no evidence of embolic lesions. HEAD: Atraumatic. Normocephalic. No temporal wasting, or tenderness. EYES: [place] conjunctiva. No petechia or hemorrhage. Pupils equal, round and reactive to light. Extraocular movements full and intact. No scleral icterus. No injection or drainage. EARS, NOSE AND THROAT: Nose without bleeding or purulent nasal discharge. No sinus tenderness. Very dry oral mucosa. NECK: Trachea midline. Supple, no meningeal signs CARDIOVASCULAR: Regular rate and rhythm. No murmurs, rubs or gallops heard RESPIRATORY: Clear to auscultation. Breath sounds equal bilaterally. No rales , wheezing or rhonchi. Decreased breath sounds at the bases ABDOMEN: Distended, with mild diffuse abdominal tenderness, tympanitic on percussion. Bowel sounds present and normoactive. : Dan cath in place. L labia is swollen but not red EXTREMITIES: No clubbing, cyanosis. Has improving bilateral pedal edema. Has wound L leg with some slough, no surrounding cellulitis NEUROLOGICAL: Grossly non-focal PSYCHIATRIC: Cooperative LINE: No evidence of infection Assessment & Plan Remarks IMPRESSION Sepsis with shock, due to endocarditis - BP stable - has MOSF - previously had GAS, then MSSA - now MSSA MSSA endocarditis - echo with large TV veg and now also with AV veg Has pulmonary septic emboli Has UTI Renal insufficiency, worsening Pancytopenia, improving - thrombocytopenia worse again Known very poor compliance to medical Rx DIC, better RECOMMENDATION Continue Ancef Continue Levaquin to have some pulmonary coverage Repeat CXR to follow-up infiltrates Progression of infection due to poor compliance to medical treatment Monitor progress She will need a course of IV antibiotics for her endocarditis Milana Harp MD September 25, 2017 09:16
[2017-09-25 09:40] LABS: OVALOCYTES 1+ (NORMAL)
[2017-09-25 10:00] LABS: ALBUMIN 2.6 GM/DL (3.4-5.0); BICARBONATE 26.3 MEQ/L (21.0-32.0); CALCIUM 8.2 MG/DL (8.5-10.1); CREATININE 3.7 MG/DL (0.50-1.00); MAGNESIUM 1.8 MG/DL (1.5-2.5); PHOSPHORUS 6.4 MG/DL (2.5-4.9)
[2017-09-25 10:14] LABS: BACTERIA, URINE RARE /hpf; BILIRUBIN, URINE NEG (NEG); BLOOD, URINE LARGE (NEG); GLUCOSE,URINE NEG (NEG); KETONE, URINE NEG (NEG); NITRITE,URINE NEG (NEG); SQUAMOUS EPITHELIAL CELL URINE 3 /hpf (0-5); URINE LEUKOCYTE ESTERASE MOD (NEG)
[2017-09-25 10:15] LABS: URINE COLOR LIGHT-ORANGE (YELLW/STRAW)
[2017-09-25] MEDS ORDERED: hydrALAZINE HCL 25 MG TAB PO ONE (10:15)
[2017-09-25] MEDS ORDERED: POTASSIUM CHLORIDE 25 MEQ EFFERVESCENT TAB PO ONE ×2 (10:15→15:00)
[2017-09-25] MEDS: ceFAZolin 2 GM PREMIX 50 ML IV SCH ×2 (10:21→20:37)
--- NOTE | 2017-09-25 10:26 | RADRPT ---
EXAM DATE: 09/25/2017 10:20 AM EDT AGE/SEX: 37 years / Female INDICATIONS: Short of breath. Painful inspirations. CLINICAL DATA: This is the patient's subsequent encounter. Patient reports that signs and symptoms h ave been present for 3 days and indicates a pain score of 6/10. MEDICAL/SURGICAL HISTORY: Hepatitis C. HIV. Seizures. Smoker. Cardiac disorder. None. COMPARISON: [facility] [place], 08/13/[place]. . FINDINGS: PA and lateral views of the chest demonstrate the bibasilar consolidation with patchy nodular densiti es seen in the lower lobes. Small right pleural effusion. Heart borderline enlarged. The cardiomedias tinal contours are unremarkable. Osseous structures are intact. CONCLUSION: 1. Bibasilar patchy infiltrates. 2. There are some ill-defined nodular densities could be septic emboli. 3. Small right pleural effusion. Electronically signed by: Dung Warren MD 09/25/2017 10:24 AM EDT
[2017-09-25] MEDS: MEGESTROL ACETATE 40 MG TAB PO SCH ×2 (11:06→20:39)
[2017-09-25] MEDS ORDERED: POTASSIUM CHLOR 10 MEQ PREMIX 100 ML IV ONE (11:15)
[2017-09-25] MEDS ORDERED: ONDANSETRON ODT 4 MG TAB PO ONE (11:30)
--- NOTE | 2017-09-25 11:43 | HHI.PR ---
Subjective Remarks Patient awake, alert. Denies any chest pain or shortness of breath. She reports abdominal distention today. Positive diarrhea bowel movement this morning. Denies any dysuria. Objective Vital Signs Date Time Temp Pulse Resp B/P (MAP) Pulse Ox O2 Delivery O2 Flow Rate FiO2 09/25/17 08:00 98.1 89 20 141/73 (95) 91 09/25/17 08:00 94 09/25/17 04:00 98.5 85 18 166/92 (116) 93 09/25/17 04:00 86 09/25/17 00:00 98.2 89 18 161/83 (109) 93 09/25/17 00:00 83 09/24/17 20:00 98.6 93 18 158/93 (114) 92 09/24/17 20:00 92 09/24/17 16:01 97.2 78 17 156/86 (109) 94 09/24/17 16:00 78 09/24/17 12:01 97.3 82 17 159/88 (111) 93 09/24/17 12:00 66 I/O 09/24/17 09/24/17 09/24/17 09/25/17 09/25/17 09/25/17 07:00 15:00 23:00 07:00 15:00 23:00 Intake Total 250 ml 380 ml 120 ml Output Total 600 ml Balance -600 ml 250 ml 380 ml 120 ml Intake Oral 380 ml 120 ml IV Total 250 ml Output Urine Total 600 ml # Voids 5 2 # Bowel Movements 2 0 Result Diagram: 09/25/1782009/25/1721 Objective Remarks GENERAL: She is lying in bed. Appears comfortable. Awake, alert. SKIN: Warm and dry. HEAD: Normocephalic. EYES: No scleral icterus. No injection or drainage. NECK: Supple, trachea midline. No JVD. CARDIOVASCULAR: Regular rate and rhythm without murmurs, gallops, or rubs. RESPIRATORY: Breath sounds equal bilaterally. No accessory muscle use. GASTROINTESTINAL: Abdomen distended, somewhat hyperresonant nares, dull otherwise. Nontender. MUSCULOSKELETAL: No cyanosis. Diffuse anasarca, improving. Bilateral lower extremity abscesses which are dressed. BACK: Nontender without obvious deformity. No CVA tenderness. A/P Assessment and Plan 37-year-old female admitted with Severe Sepsis with shock and organ failure related to 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 Renal function is improved and appears stable. Diarrhea is present. Etiology of diarrhea may be withdraw. C. Diff screen ordered. Continue to monitor potassium levels and replace as needed. Acute encephalopathy Narcotic Withdraw On methadone 10 mg daily Percocet 10/325 mg p.o. every 4 hourly as needed for pain/withdraw //Abdominal distention = 09/25. Patient with abdominal distention. Check bladder scan. AP abdomen with no acute findings. Suspect ascites. Paracentesis ordered and pending. Severe sepsis with multiorgan failure Acute Renal Failure, cardiorenal syndrome Anion gap Diastolic CHF secondary to valvulopathy. Pulmonary hypertension Follow creatinine Nephrology following = 09/24 Dan out. Creatinine stabilized 3.8. Anion gap on labs 16. Check lactate and urine for ketones. Nephrology following. Fluid restrictions, afterload reduction. Appreciate unix consultant assistance. Continue to monitor. = 09/25. Check postvoid residual bladder scan. Septic pulmonary emboli Follow pulse ox =Antibiotic as per infectious disease Tricuspid valve vegetation with severe TR Endocarditis Right lower leg abscess (septic emboli) = Antibiotics as per infectious disease. Abdominal pain Hepatosplenomegaly Hep C noted on serology P.o. diet as tolerated Acute kidney injury = Improving. Continue to monitor. Hypokalemia monitor and replace as needed = 09/25. Potassium 2.8. Replace. Vaginal discharge Negative STD evaluation Follow clinically Pancytopenia Thrombocytopenia Possible DIC (resolved) Improving Follow CBC = Platelet count improving. DVT Prophylaxis Bleed risk SCDs Discharge Planning Continues on IV antibiotics for endocarditis. John Burden MD September 25, 2017 11:43
--- NOTE | 2017-09-25 12:10 | RADRPT ---
EXAM DATE: 09/25/2017 12:05 PM EDT AGE/SEX: 37 years / Female INDICATIONS: Distention. CLINICAL DATA: This is the patient's initial encounter. Patient reports that signs and symptoms have been present for 1 day and indicates a pain score of 10/10. MEDICAL/SURGICAL HISTORY: HIV. Hepatitis C. pulmonary embolism None. COMPARISON: No prior [facility] exams available for comparison. FINDINGS: The loops of small large bowel appear to be centrally located within the abdomen suggesting ascites. No definite findings to indicate bowel obstruction are seen. The visualized osseous structures are grossly intact. CONCLUSION: Probable ascites. Electronically signed by: Tung Murphy MD 09/25/2017 12:08 PM EDT
--- NOTE | 2017-09-25 12:41 | PD.WCN.NOT ---
Wound Consult Description: Wound consult ordered by for wound management. Communicated with: Radha herring, Recommendation: 1. Cleanse bilateral lower extremity wounds with normal saline pat dry. 2. Apply Santyl 2mm thick to wound base ,Cover with Maxorb cut to fit. 3. Secure with boarder gauze change dressing daily or as needed for exudate / dislodgement. 4. Follow up with out patient wound care. Additional Information: Patient was seen today by freelance writer and Radha herring for wound management.Patient alert and oriented laying in bed with family present.Dressing removed from bilateral lower extremities prior to writers arrival.Wound cleansed with normal saline and pat dry .Left lower extremity has unknown etiology ulcer to medial gaiter area measuring 1.8cm x 1.6cm 0.3cm wound base is 100% pink/white moist non granular tissue .Wound is circular in shape wound edges are well defined and sloped to wound base.Scant serosanguineous drainage noted without odor.periwound intact no erythema noted.Right lower extremity has unknown etiology ulcer to medial gaiter area measuring 1.3cm x 1.5cm x0.2cm wound base is 50% moist pink non granular tissue 50% thin loosely adhered yellow slough.Wound is circular in shape wound edges are well defined and sloped with wound base periwound intact.Scant serosanguineous drainage noted without odor.Maxorb ll cut to fit wound base applied and covered with dry gauze secured with boarder gauze.Dressing signed and dated.Manager Of Health assessed labia area no redness or open areas noted.Patient denies any discomfort in vaginal area.Santyl to be applied when available to floor.patient tolerated wound care well. Sandra Biswas [facility] September 25, 2017 12:41
[2017-09-25] MEDS ORDERED: HYDROmorphone HCL PF 1 MG/ML VIAL IV PUSH ONE (13:30)
--- NOTE | 2017-09-25 13:30 | HHI.NPPN ---
Subjective History of Present Illness Patient is a 37-year-old with IVDA and endocarditis with acute renal failure Review of Systems General Constitutional: Fatigue Musculoskeletal MS: Pain/Stiffness Objective Data Data Vital Signs Date Time Temp Pulse Resp B/P (MAP) Pulse Ox O2 Delivery O2 Flow Rate FiO2 09/25/17 12:00 97.4 96 20 126/83 (97) 96 09/25/17 08:00 98.1 89 20 141/73 (95) 91 09/25/17 08:00 94 09/25/17 04:00 98.5 85 18 166/92 (116) 93 09/25/17 04:00 86 09/25/17 00:00 98.2 89 18 161/83 (109) 93 09/25/17 00:00 83 09/24/17 20:00 98.6 93 18 158/93 (114) 92 09/24/17 20:00 92 09/24/17 16:01 97.2 78 17 156/86 (109) 94 09/24/17 16:00 78 -: 09/25/17 0821 09/25/17 0821 Microbiology 09/25/17 Urine Culture, Received Pending Physical Exam General Appearance: Pale Neck Neck Exam: Neck Supple Pulmonary Resp Exam: Decreased Bases Cardiology CV Exam: Regular Gastrointestinal/Abdomen GI Exam: Soft, Non-Tender, Distended, Bowel Sounds Hypoactive Integumentary Skin Exam: Ulcer(s) Extremeties Extremities Exam: Pitting Edema, Dependent Edema Neurologic Neuro Exam: Alert, Awake, Oriented Assessment/Plan Problem List: (1) Acute renal failure ICD Codes: N17.9 - Acute kidney failure, unspecified Plan: This is likely due to underlying endocarditis and severe infection Continue to monitor urine output Patient is dehydrated/ATN Albumin 25 g IV every 12 hourly as ordered UOP? Cr 3.7 K 2.8 replaced stop Lasix has diarrheas C diff pending will hold off dialysis since slight decline in Cr PhosLo 667 mg 2 TID with meals endocarditis AV Vegetation TV Big mobile Vegetation ultrasound abdomen small amount ascites kidney size normal he has hepatosplenomegaly possible cirrhosis Follow BMP (2) Endocarditis ICD Codes: I38 - Endocarditis, valve unspecified Status: Acute Plan: Due to IVDA (3) Severe sepsis ICD Codes: A41.9 - Sepsis, unspecified organism; R65.20 - Severe sepsis without septic shock Status: Acute Plan: Staph aureus septicemia zAalea Gillette MD September 25, 2017 13:30
[2017-09-25] MEDS: ISOSORBIDE DINITRATE 10 MG TAB PO SCH ×2 (13:33→20:38)
[2017-09-25] MEDS: hydrALAZINE HCL 100 MG TAB PO SCH ×2 (13:33→20:38)
[2017-09-25 14:38] LABS: ALBUMIN 2.6 GM/DL (3.4-5.0); DIRECT BILIRUBIN ADULT 0.2 MG/DL (0.0-0.2)
[2017-09-25 14:40] LABS: INDIRECT BILIRUBIN 0.4 MG/DL (0.0-0.8); TOTAL BILIRUBIN ADULT 0.6 MG/DL (0.2-1.0); TOTAL PROTEIN 6.9 GM/DL (6.4-8.2)
--- NOTE | 2017-09-25 17:41 | MB ---
cc: Leny Estrada Jacqueline R ARNP DATE: 09/25/2017 HISTORY OF PRESENT ILLNESS: A 37-year-old female presented to the emergency room brought in by EVAC, decreased level of consciousness. She has had multiple admissions to [facility] related to endocarditis, admitted on 07/13 to 07/18 with group B strep bacteremia, 08/20 to 08/27 with MSSA bacteremia and again on 09/07 to 09/09 MSSA bacteremia. Each occasion, she left AMA. Echocardiogram from 09/08 revealed an ejection fraction of 50%, mild aortic insufficiency, moderate MR, moderate tricuspid regurgitation. She has history of tricuspid valve regurgitation. On this admission, she was pancytopenic with a white cell count of 3, platelet count of 41 and hemoglobin of 7.1. Also, with acute kidney injury with creatinine of 2.15. She received IV fluids and an additional 3 liters of normal saline in the emergency department. She received IV antibiotics. He was initially admitted by critical care. She has known IV drug use. She uses heroin and cocaine. She injects in her arms and her legs. We were consulted secondary to aortic valve endocarditis. Her echo on 09/21 showed an ejection fraction of 50-55%, vegetation on the noncoronary cusp of the aortic valve, moderate aortic valve regurgitation, large mobile vegetation on the tricuspid valve, moderate to severe tricuspid regurgitation, PA pressures of 58. There was a large pleural effusion. PAST MEDICAL HISTORY: Hepatitis C, seizure disorder, anxiety, headaches. PAST SURGICAL HISTORY: None. ALLERGIES: NO KNOWN ALLERGIES. MEDICATIONS: No home medications. SOCIAL HISTORY: The patient is single, has 3 children, lives with her mother. Positive for tobacco abuse, IV drug use with heroin and cocaine. Urine toxicology screen came back positive for opiates, positive for benzos. Positive for cocaine. REVIEW OF SYSTEMS: As above in HPI, other 12 systems unremarkable. PHYSICAL EXAMINATION: VITAL SIGNS: Blood pressure 126/70, heart rate of 102, temperature max 97.7. GENERAL: Patient is awake, alert. She is continuously moaning with described pain all over. HEENT: Head is normocephalic, atraumatic. Pupils equal and reactive. Oral mucosa pink, moist. No injection or drainage. NECK: Supple. No JVD. CARDIOVASCULAR: Sounds S1, S2. Soft systolic murmur. LUNGS: Diminished in the bases. EXTREMITIES: Trace edema. She has track christina on her forearms. She also has track christina on her lower extremities. ABDOMEN: Soft, nontender. No masses or organomegaly. LABORATORY DATA: Shows hemoglobin 9.3, hematocrit of 27. white cell count of 10, platelet count of 109, up from 20. Patient has received 2 units of packed RBCs since her admission. Chemistry includes a sodium of 138, potassium of 2.8, which has been replaced. BUN of 53, creatinine 3.70. Lactic acid on admission 1.4, calcium 7.0 with replacement - now 7.8, AST of 14, ALT of 7, albumin 2.3. Beta hCG is negative. INR 1.1, fibrinogen low at 214. Urinalysis did show culture indicated. Tox screen as above. MRSA screen positive. Positive Hepatitis C. Hep B and A nondetected. Gonorrhea nondetected. Chlamydia nondetected. Micro shows positive Staphylococcus aureus in the blood, 4/4 cultures. Repeat cultures on the showed no growth in 4 days. Urine culture initially negative. Repeat is pending. IMAGING STUDIES: Head CT: No acute abnormality. Chest CT. Small bilateral effusions and some inflammatory pulmonary lung nodules including some cavitary nodules consistent with septic emboli. Abdomen and pelvis CT: Some hepatosplenomegaly, small amount of ascites. She has had ultrasounds of the upper and lower extremities negative for DVT. ASSESSMENT AND PLAN: This is an unfortunate 37-year-old female with the following diagnoses of tricuspid and aortic valve endocarditis, disseminated intravascular coagulation with indices improving, pancytopenia, chronic renal insufficiency with acute kidney injury, history of chronic IV drug use over the past year with heroin and cocaine, has positive drug screen, septic pulmonary emboli. Currently, the patient is not a surgical candidate secondary to recurrent IV drug use. RECOMMENDATIONS: Patient to discontinue all IV drug use. Rehab facility placement if possible. She needs to remain drug free for greater than 6 months and then with a repeat urine drug toxicology screen in the meantime. Recommendations to continue IV antibiotics and further treatment for her heart failure, pancytopenia and her other multiple comorbidities. LESLY Mcnamara MD JRT/ , 05:08 PM , 05:40 PM
[2017-09-25] MEDS ORDERED: LIDOCAINE HCL 1% PF 30 ML VIAL ONE (17:50)
[2017-09-25 21:14] LABS: PERITONEAL LYMPHS 38 %; PERITONEAL MONOS 2 %; PERITONEAL POLYS(SEGS) 60 %
[2017-09-25 21:16] LABS: PERITONEAL RBC 12950 /MM3 (0-0)
[2017-09-25] MEDS: SPIRONOLACTONE 25 MG TAB PO SCH (22:40)
[2017-09-25] MEDS: BUMETANIDE 1 MG TAB PO SCH (22:40)
[2017-09-26] VITALS (12 sets, daily range): BP systolic 108–135; BP diastolic 56–80; PULSE 74–96; RESP 14–21; TEMP 97.6–98.7; O2SAT 91–98
[2017-09-26] MEDS: hydrALAZINE HCL 100 MG TAB PO SCH ×3 (04:03→22:00)
[2017-09-26] MEDS: ISOSORBIDE DINITRATE 10 MG TAB PO SCH ×3 (04:03→22:00)
[2017-09-26] MEDS: oxyCODONE/ACETAMINOPHEN 10 MG/325 MG TAB PO PRN (04:03)
[2017-09-26 05:32] LABS: BASOPHIL % 0.4 % (0.0-2.0); EOSINOPHIL # 0.1 TH/MM3 (0-0.4); EOSINOPHIL % 1.4 % (0.0-4.0); LYMPH % 16.3 % (9.0-44.0); LYMPHOCYTE # 1.3 TH/MM3 (1.0-4.8); MEAN CELL VOLUME 81.5 FL (80.0-100.0); MEAN CORPUSCULAR HEMOGLOBIN 27.2 PG (27.0-34.0); MEAN CORPUSCULAR HGB CONC 33.4 % (32.0-36.0); MEAN PLATELET VOLUME 9.4 FL (7.0-11.0); MONO % 4.1 % (0.0-8.0); MONOCYTE # 0.3 TH/MM3 (0-0.9); NEUT % 77.8 % (16.0-70.0); PLATELET COUNT 116 TH/MM3 (150-450); RED BLOOD COUNT 2.95 MIL/MM3 (4.00-5.30); RED CELL DISTRIBUTION WIDTH 18.9 % (11.6-17.2); WHITE BLOOD COUNT 7.8 TH/MM3 (4.0-11.0)
[2017-09-26 06:08] LABS: ALBUMIN 2.6 GM/DL (3.4-5.0); CALCIUM 8.7 MG/DL (8.5-10.1); CREATININE 3.99 MG/DL (0.50-1.00); MAGNESIUM 1.9 MG/DL (1.5-2.5); PHOSPHORUS 6.8 MG/DL (2.5-4.9)
[2017-09-26] MEDS: SODIUM CHLORIDE 0.9% FLUSH 10 ML FLUSH IV FLUSH SCH ×2 (09:00→22:01)
--- NOTE | 2017-09-26 09:09 | HHI.CCPN ---
Subjective Remarks/Hospital Course 09/16: 37-year-old female with past medical history of IV drug use, cocaine abuse , tricuspid valve endocarditis, hepatitis C who was brought to [facility] emergency department via EVAC due to decreased level of consciousness. She has multiple admissions to [facility] related to endocarditis including 07/13-07/18 (group B strep bacteremia), 08/20-08/27 (MSSA bacteremia), -09/09 (MSSA bacteremia). On each occasion, she left AMA. Echo from 09/08/17 demonstrated ejection fraction of 50%, mild AI, moderate MR, moderate TR. She has a tricuspid valve vegetation. Her temp is 99.9. She is pancytopenic with white blood cell count of 3.3, platelets 41, hemoglobin 7.1. She has acute kidney injury with creatinine of 2.15. AST is elevated. She received 500 mL of fluid per EVAC and an additional 3 L normal saline bolus in the emergency department. She received vancomycin, Zosyn, calcium. [facility] was consulted for admission. CT scans have been ordered but were pending at the time of admission. 09/17: Resting in bed. Complaining of generalized pain 09/18 Off neosynephrine. Platelet count down to 16, labs c/w DIC. No active bleeding. She is complaining of pain "everywhere" particularly [her buttocks] . Oliguric despite large volume fluids. 09/19: Laying in bed this morning at the time of my evaluation. Not in any acute distress. Complains of pain all the time. Demanding narcotics. Had a large BM later today. Subjective: 09/26: Reconsult secondary to seizure activity and floor. Approximate 5 minutes per RN though total duration not definitive. She does have a history of seizures likely due to withdrawal. Currently on methadone and famotidine along with levofloxacin.. Methadone and famotidine to be discontinued. Defer antibiotic management to infectious disease. MRI brain/EEG and neurology consult pending. Currently awake and alert with childlike "help me" interaction. Asking for mother and father. Objective Vital Signs Date Time Temp Pulse Resp B/P (MAP) Pulse Ox O2 Delivery O2 Flow Rate FiO2 09/26/17 04:00 87 09/26/17 04:00 97.6 19 135/80 (98) 95 09/26/17 04:00 Nasal Cannula 3.00 Intake and Output 09/26/17 09/26/17 09/27/17 08:00 16:00 00:00 Intake Total 444 ml Output Total 200 ml Balance 244 ml Result Diagram: 09/26/17 0444 09/26/17 0444 Other Results Microbiology Date/Time Source Procedure Growth Status 09/21/17 16:44 Blood Peripheral Aerobic Blood Culture - Preliminary NO GROWTH IN 4 DAYS Resulted 09/21/17 16:44 Blood Peripheral Anaerobic Blood Culture - Preliminary NO GROWTH IN 4 DAYS Resulted 09/25/17 16:44 Fluid Peritoneal Fluid Gram Stain - Final Resulted 09/25/17 16:44 Fluid Peritoneal Fluid Body Fluid Culture Pending Resulted 09/25/17 09:50 Urine Clean Catch Urine Culture Pending Received Imaging Last Impressions Chest X-Ray 09/25/17 Signed Impressions: CONCLUSION: 1. Bibasilar patchy infiltrates. 2. There are some ill-defined nodular densities could be septic emboli. 3. Small right pleural effusion. Abdomen X-Ray 09/25/17 Signed Impressions: CONCLUSION: Probable ascites. Upper Extremity Ultrasound 09/19/17 Signed Impressions: CONCLUSION: 1. No evidence of DVT. Lower Extremity Ultrasound 09/19/17 Signed Impressions: CONCLUSION: 1. No evidence of DVT. Abdomen Ultrasound 09/19/17 Signed Impressions: CONCLUSION: 1. Diffusely enlarged liver with increased echogenicity suggestive of fatty in filtration and/or hepatocellular disease. 2. Small amount of ascites in the upper abdomen. 3. No definite gallstones. There is thickening of the gallbladder wall at 7 mm . 4. The spleen is diffusely enlarged with several hypoechoic densities within t he spleen. There are splenic granulomas present. Head CT 09/16/17 Signed Impressions: Service Date/Time: Saturday, September 16, 2017 17:56 - CONCLUSION: 1. No acute intracranial abnormality. 2. Left maxillary and sphenoid sinus mucosal disease. Zenon Busch MD Chest CT 09/16/17 Signed Impressions: Service Date/Time: Saturday, September 16, 2017 18:04 - CONCLUSION: 1. Small bilateral pleural effusions with dense bilateral lower lobe airspace consolidation. 2. Numerous bilateral inflammatory pulmonary nodules including cavitary nodules in the apices bilaterally. Findings are consistent with septic emboli. Zenon Busch MD Abdomen/Pelvis CT 09/16/17 0000 Signed Impressions: Service Date/Time: Saturday, September 16, 2017 18:04 - CONCLUSION: 1. Limited examination due to paucity of peritoneal fat and patient's overlying arms. 2. Hepatosplenomegaly with small amount of ascites. 3. Small to moderate amount of colonic stool without evidence for bowel obstruction. Zenon Busch MD Objective Remarks GENERAL: 37-year-old female currently resting in bed appears distressed asking for her parents SKIN: Warm and dry. There are track christina present on her bilateral arms and anterior medial aspect shins. There is a 3 cm wound over the medial aspect of her right osorio currently covered with serous drainage. There is also a 3 cm wound over the medial aspect of left lower leg with some serous drainage. HEAD: Atraumatic. Normocephalic. EYES: Pupils equal and round, 2 mm react. No scleral icterus. Bilateral conjunctival injection. ENT: No nasal bleeding or discharge. Mucous membranes moist. NECK: Trachea midline. CARDIOVASCULAR: Regular rate and rhythm. S1, S3 no S4. 3/6 systolic murmur LLSB and right upper sternal border RESPIRATORY: Diminished breath sounds right greater than left lower lobes. No wheezing. GASTROINTESTINAL: Abdomen slightly distended. Reducible., hypoactive bowel sounds. +palpable hepatomegaly. MUSCULOSKELETAL: Extremities with trace to 1+ 1+ bipedal edema,. Much improving edema of LUE. NEUROLOGICAL: Awake and alert. Asking for mother. No obvious cranial nerve deficits. Motor grossly within normal limits moving all 4 spontaneously. Urinary Catheter: Yes Assessment to: Continue Dan insert reason: Prolonged Immobilization Vascular Central Line Catheter: No Assessment to: Continue A/P Assessment and Plan NEURO/PSYCH: Acute seizure Acute encephalopathy, secondary to sepsis improved. History of chronic drug use Opioid dependent Benzodiazepine abuse Cocaine abuse Admission CT brain - no acute abnormality. Left maxillary and sphenoid sinus disease On methadone 10 mg daily and oxycodone/acetaminophen 10/325 mg p.o. every 4 hourly as needed for pain and to avoid withdrawal Discontinue methadone due to seizure activity Discontinued famotidine due to seizure activity. MRI brain/EEG brain pending Loaded with levetiracetam 500 mg 1 followed by 500 mg twice daily Neurology consultation requested Seizure precautions Replacing potassium and magnesium Check TSH RESP: Bilateral septic pulmonary emboli Right pleural effusion Nasal cannula to maintain saturations greater than or equal to 92% Incentive spirometry while awake As needed albuterol/ipratropium aerosols Follow-up chest x-ray in a.m. 09/27 CV: Aortic valve and tricuspid valve endocarditis Tricuspid valve vegetation with severe TR Essential hypertension Currently on metoprolol 12.5 mg by mouth twice daily, amlodipine 10 mg p.o. daily, hydralazine 100 mg 3 times daily and isosorbide dinitrate 10 mg 3 times daily Diuresing with bumetanide 1 mg IV twice daily Currently hemodynamically stable. See renal for diuretics/colloid therapy Evaluated by CT surgery but not a candidate for valve replacement secondary to ongoing drug use. 6 months of drug abstinence before reevaluation GI: Abdominal pain NOS -probable SBP Hepatosplenomegaly Moderate protein energy malnutrition Hypoalbuminemia Hep C antibody positive Abdominal ascites Heart healthy diet as tolerated CT abdomen and pelvis - Hepatosplenomegaly with small ascites. Moderate amount of stool in the colon without evidence of bowel obstruction. Status post paracentesis 09/25 with high WBCs noted.. 1800 cc removed Hepatitis C genotype and viral load pending FEN/RENAL: Acute kidney injury Hypokalemia Hypophosphatemia Dan in place. Monitor and intake and output Creatinine currently 3.99 Receiving 60 mEq potassium chloride p.o. 1 now Currently on calcium acetate 1334 mg 3 times daily. Recheck in a.m. Nephrology following. ID: Severe sepsis Aortic valve/tricuspid valve endocarditis with medical nonadherence and ongoing IV drug use Right lower leg abscess - Blood culture 09/16 MSSA Blood culture 09/18 staph or Urine culture 09/16 - no growth Blood culture 09/19 09/21 -no growth Continue antibiotics per ID: Amoxicillin, Levaquin. ID following, Dr. Harp Currently on cefazolin and levofloxacin per infectious disease. Prolonged antibiotic course noted HEME: Pancytopenia on admission Normocytic anemia Thrombocytopenia ENDO: Episodic hypoglycemia Euglycemic currently. We will place on sliding scale insulin with Accu-Cheks to maintain euglycemia PROPH: SCDs for DVT prophylaxis. We will hold off on pharmacologic DVT prophylaxis at this point due to thrombocytopenia. Pantoprazole for stress ulcer prophylaxis ACCESS: Peripheral IVs. Central line if indicated Level 2 follow-up Jhon Ch MD September 26, 2017 09:09
[2017-09-26] MEDS ORDERED: POTASSIUM CHLOR 10 MEQ PREMIX 100 ML IV SCH (09:15)
[2017-09-26] MEDS ORDERED: MAGNESIUM SULFATE 1 GM PREMIX 100 ML IV ONE (09:15)
[2017-09-26] MEDS ORDERED: levETIRAcetam INJ 500 MG in SODIUM CHLORIDE 0.9% INJ 100 ML IV ONE (09:30)
[2017-09-26] MEDS ORDERED: GLUCAGON 1 MG/ML VIAL OTHER PRN (09:30)
[2017-09-26] MEDS ORDERED: DEXTROSE 50% IN WATER 50 ML VIAL(D50) IV PUSH PRN (09:30)
[2017-09-26] MEDS ORDERED: POTASSIUM CHLORIDE 20 MEQ CONTROLLED RELEASE TAB PO ONE (09:45)
[2017-09-26] MEDS: ceFAZolin 2 GM PREMIX 50 ML IV SCH ×2 (10:00→22:01)
[2017-09-26] MEDS: METOPROLOL TARTRATE 25 MG TAB PO SCH ×2 (10:29→22:00)
[2017-09-26] MEDS: BUMETANIDE 1 MG TAB PO SCH ×2 (10:30→17:20)
[2017-09-26] MEDS: ALBUMIN 25% INJ 100 ML IV SCH ×2 (10:30→22:02)
[2017-09-26] MEDS: SPIRONOLACTONE 25 MG TAB PO SCH ×2 (10:31→17:20)
[2017-09-26] MEDS: MEGESTROL ACETATE 40 MG TAB PO SCH ×2 (10:31→22:00)
[2017-09-26] MEDS: CALCIUM ACETATE 667 MG CAP PO SCH ×3 (10:31→17:20)
[2017-09-26] MEDS: DOCUSATE SODIUM 50 MG/SENNA 8.6 MG TAB PO SCH ×2 (10:31→21:59)
[2017-09-26] MEDS: THIAMINE HCL 100 MG TAB PO SCH (10:31)
[2017-09-26] MEDS: amLODIPine BESYLATE 5 MG TAB PO SCH (10:31)
[2017-09-26] MEDS: MAGNESIUM SULFATE 1 GM PREMIX 100 ML IV SCH ×2 (10:38→10:40)
[2017-09-26] MEDS: LEVOFLOXACIN 500 MG TAB PO SCH (10:39)
[2017-09-26] MEDS: INSULIN ASPART SUPPLEMENTAL SCALE SQ SCH ×3 (12:00→21:00)
--- NOTE | 2017-09-26 12:44 | HHI.IDPN ---
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 Patient also had another admission in July, and at that time her blood cultures grew methicillin sensitive staph aureus. She signed out AGAINST MEDICAL ADVICE again at that time. When she came in this time, her CBC showed pancytopenia. CT of the chest showed evidence of multiple pulmonary septic emboli. 2 blood cultures done are now showing staph aureus. She was also hypotensive, and also had an elevated creatinine. Her urine output has been low. CT of the head did not show any significant abnormality. CT of the abdomen and pelvis showed splenomegaly. Patient currently still lethargic, and moaning. She is complaining of pain throughout her whole body. She is on Celso-Synephrine. Infectious disease consultation has been requested to evaluate the patient. Notes reviewed D/W RN Transferred to ICU - had witnessed SZ Temps ok BP ok No GARCIA CTS notes reviewed Her echo showed a large TV veg, with mod to severe TR and an AV veg with moderate AI Creatinine up again Platelets better Spoke with Mom at bedside Antibiotics Ancef Levaquin Current Medications Medications (Trade) Dose Ordered Sig/Amy Route Start Time Stop Time Status Last Admin (NS Flush) 2 ml UNSCH PRN IV FLUSH 09/16/17 17:00 09/22/17 21:11 (NS Flush) 2 ml BID IV FLUSH 09/16/17 21:00 09/26/17 09:00 (Albuterol Neb) 2.5 mg Q2HR NEB PRN INH 09/16/17 17:00 ([facility] [place] [facility]) 1 Q361D XX 09/16/17 17:00 09/16/17 20:22 (Chlorhexidine 2% Cloth) Taper DAILY@04 TOP 09/17/17 04:00 09/13/18 03:59 09/21/17 04:00 (Chlorhexidine 2% Cloth) 3 pack UNSCH PRN TOP 09/16/17 17:00 (Paula-Colace) 1 tab BID PO 09/16/17 21:00 09/26/17 10:31 (Milk Of Magnesia Liq) 30 ml Q12H PRN PO 09/16/17 17:00 09/19/17 11:19 (Senokot) 17.2 mg Q12H PRN PO 09/16/17 17:00 09/19/17 09:43 (Dulcolax Supp) 10 mg DAILY PRN RECTAL 09/16/17 17:00 09/19/17 11:20 (Lactulose Liq) 30 ml DAILY PRN PO 09/16/17 17:00 09/19/17 07:45 (Phenergan Inj) 25 mg Q6H PRN IM 09/16/17 17:00 09/21/17 05:29 (Percocet 10-325 Mg) 1 tab Q4H PRN PO 09/17/17 08:30 09/26/17 04:03 (Levaquin) 500 mg Q48H PO 09/18/17 11:00 09/24/17 10:38 (Lopressor) 12.5 mg Q12HR PO 09/20/17 00:30 09/26/17 10:29 Albumin Human 100 ml @ 60 mls/hr BID IV 09/21/17 21:00 09/26/17 10:30 Cefazolin Sodium/ Dextrose 50 ml @ 100 mls/hr Q12H IV 09/24/17 10:00 09/26/17 10:00 (Norvasc) 10 mg DAILY PO 09/25/17 09:00 09/26/17 10:31 (Vitamin B1) 100 mg DAILY PO 09/25/17 09:00 09/26/17 10:31 (Phoslo) 1,334 mg TID PO 09/24/17 13:00 09/26/17 10:31 (Apresoline) 100 mg Q8HR PO 09/25/17 14:00 09/26/17 04:03 (Isordil) 10 mg Q8HR PO 09/25/17 14:00 09/26/17 04:03 (Megace) 40 mg Q12HR PO 09/25/17 10:30 09/26/17 10:31 (Aldactone) 25 mg BID@,18 PO 09/25/17 22:00 09/26/17 10:31 (Bumetanide) 1 mg BID@,18 PO 09/25/17 22:00 09/26/17 10:30 Levetriacetam 500 mg/Sodium Chloride 105 ml @ 420 mls/hr Q12HR IV 09/26/17 21:00 (D50w (Vial) Inj) 50 ml UNSCH PRN IV PUSH 09/26/17 09:30 (Glucagon Inj) 1 mg UNSCH PRN OTHER 09/26/17 09:30 (NovoLOG SUPPLEMENTAL SCALE) 1 ACHS SLIDING SCALE SQ 09/26/17 12:00 (Protonix) 40 mg DAILY PO 09/27/17 09:00 (Bactroban Nasal 2% Oint) 1 applic Taper BID EACH NARE 09/26/17 21:00 09/22/18 20:59 Lines Line no evidence of infection Past Medical History Hepatitis C Tricuspid valve endocarditis Group A strep sepsis MSSA sepsis Known active IV drug use Allergies: Coded Allergies: No Known Allergies (Unverified Allergy, Unknown, 08/13/17) Objective . Vital Signs Date Time Temp Pulse Resp B/P (MAP) Pulse Ox O2 Delivery O2 Flow Rate FiO2 09/26/17 12:00 97.8 86 17 123/71 (88) 97 09/26/17 12:00 86 09/26/17 11:34 82 14 125/75 (92) 96 09/26/17 09:00 Nasal Cannula 5.00 96 09/26/17 08:00 95 09/26/17 07:00 98.0 87 21 124/73 (90) 95 09/26/17 04:00 87 09/26/17 04:00 97.6 90 19 135/80 (98) 95 09/26/17 04:00 Nasal Cannula 3.00 09/26/17 00:03 98.0 96 19 108/57 (74) 91 09/26/17 00:00 93 09/26/17 00:00 Nasal Cannula 3.00 09/25/17 20:00 Nasal Cannula 2.00 09/25/17 20:00 97.9 102 20 145/68 (93) 92 09/25/17 20:00 94 09/25/17 17:09 98.2 100 16 126/74 (91) 92 09/25/17 16:50 98.4 100 18 125/70 (88) 92 09/25/17 16:00 93 09/25/17 15:48 97.7 102 20 126/71 (89) 100 09/25/17 15:35 97.8 100 16 126/74 (91) 92 09/25/17 15:15 Nasal Cannula 2.00 09/26/17 09/26/17 09/27/17 15:00 23:00 07:00 Intake Total 400 ml Balance 400 ml IV Total 400 ml . Laboratory Tests Test 09/24/17 15:38 09/25/17 08:21 09/26/17 04:44 White Blood Count 9.8 TH/MM3 10.8 TH/MM3 7.8 TH/MM3 Red Blood Count 3.71 MIL/MM3 3.40 MIL/MM3 2.95 MIL/MM3 Hemoglobin 10.0 GM/DL 9.3 GM/DL 8.0 GM/DL Hematocrit 29.9 % 27.6 % 24.0 % Mean Corpuscular Volume 80.4 FL 81.0 FL 81.5 FL Mean Corpuscular Hemoglobin 26.9 PG 27.3 PG 27.2 PG Mean Corpuscular Hemoglobin Concent 33.5 % 33.6 % 33.4 % Red Cell Distribution Width 18.6 % 18.6 % 18.9 % Platelet Count 102 TH/MM3 109 TH/MM3 116 TH/MM3 Mean Platelet Volume 10.3 FL 9.3 FL 9.4 FL Neutrophils (%) (Auto) 80.4 % 84.6 % 77.8 % Lymphocytes (%) (Auto) 14.1 % 10.5 % 16.3 % Monocytes (%) (Auto) 4.0 % 3.7 % 4.1 % Eosinophils (%) (Auto) 1.0 % 0.7 % 1.4 % Basophils (%) (Auto) 0.5 % 0.5 % 0.4 % Neutrophils # (Auto) 7.9 TH/MM3 9.1 TH/MM3 6.0 TH/MM3 Lymphocytes # (Auto) 1.4 TH/MM3 1.1 TH/MM3 1.3 TH/MM3 Monocytes # (Auto) 0.4 TH/MM3 0.4 TH/MM3 0.3 TH/MM3 Eosinophils # (Auto) 0.1 TH/MM3 0.1 TH/MM3 0.1 TH/MM3 Basophils # (Auto) 0.0 TH/MM3 0.1 TH/MM3 0.0 TH/MM3 CBC Comment DIFF FINAL AUTO DIFF DIFF FINAL Differential Comment AUTO DIFF CONFIRMED Hematology Comments Platelet Estimate LOW Platelet Morphology Comment NORMAL Ovalocytes 1+ Laboratory Tests Test 09/24/17 15:38 09/25/17 08:21 09/26/17 04:44 09/26/17 11:13 Blood Urea Nitrogen 54 MG/DL 53 MG/DL 54 MG/DL Creatinine 3.79 MG/DL 3.70 MG/DL 3.99 MG/DL Random Glucose 81 MG/DL 95 MG/DL 90 MG/DL Calcium Level 8.1 MG/DL 8.2 MG/DL 8.7 MG/DL Sodium Level 141 MEQ/L 138 MEQ/L 139 MEQ/L Potassium Level 3.2 MEQ/L 2.8 MEQ/L 3.3 MEQ/L Chloride Level 96 MEQ/L 99 MEQ/L 99 MEQ/L Carbon Dioxide Level 30.0 MEQ/L 26.3 MEQ/L 30.0 MEQ/L Anion Gap 15 MEQ/L 13 MEQ/L 10 MEQ/L Estimat Glomerular Filtration Rate 13 ML/MIN 14 ML/MIN 13 ML/MIN Albumin 2.6 GM/DL 2.6 GM/DL Phosphorus Level 6.4 MG/DL 6.8 MG/DL Magnesium Level 1.8 MG/DL 1.9 MG/DL Total Bilirubin 0.6 MG/DL Direct Bilirubin 0.2 MG/DL Indirect Bilirubin 0.4 MG/DL Aspartate Amino Transf (AST/SGOT) 16 U/L Alanine Aminotransferase (ALT/SGPT) 7 U/L Alkaline Phosphatase 76 U/L B-Type Natriuretic Peptide 1512 PG/ML Total Protein 6.9 GM/DL Lactic Acid Level 0.6 mmol/L Ammonia 13 MCMOL/L Lactate Dehydrogenase 177 U/L Amylase Level 158 U/L Lipase 642 U/L Thyroid Stimulating Hormone 3rd Gen 15.800 uIU/ML Microbiology Date/Time Source Procedure Growth Status 09/25/17 16:44 Fluid Peritoneal Fluid Gram Stain - Final Resulted 09/25/17 16:44 Fluid Peritoneal Fluid Body Fluid Culture Pending Resulted 09/25/17 09:50 Urine Clean Catch Urine Culture Pending Received Imaging Last Impressions Chest X-Ray 09/16/17 1504 Signed Impressions: Service Date/Time: Saturday, September 16, 2017 15:28 - CONCLUSION: 1. Patchy bilateral lower lobe airspace disease, more prominent on the right. Findings are concerning for multilobar pneumonia or aspiration. Zenon Busch MD Head CT 09/16/17 Signed Impressions: Service Date/Time: Saturday, September 16, 2017 17:56 - CONCLUSION: 1. No acute intracranial abnormality. 2. Left maxillary and sphenoid sinus mucosal disease. Zenon Busch MD Chest CT 09/16/17 Signed Impressions: Service Date/Time: Saturday, September 16, 2017 18:04 - CONCLUSION: 1. Small bilateral pleural effusions with dense bilateral lower lobe airspace consolidation. 2. Numerous bilateral inflammatory pulmonary nodules including cavitary nodules in the apices bilaterally. Findings are consistent with septic emboli. Zenon Busch MD Abdomen/Pelvis CT 09/16/17 Signed Impressions: Service Date/Time: Saturday, September 16, 2017 18:04 - CONCLUSION: 1. Limited examination due to paucity of peritoneal fat and patient's overlying arms. 2. Hepatosplenomegaly with small amount of ascites. 3. Small to moderate amount of colonic stool without evidence for bowel obstruction. Zenon Busch MD Physical Exam GENERAL: Awake and alert, not in distress. SKIN: Warm and dry. No generalized rash, no ecchymoses and no evidence of embolic lesions. HEAD: Atraumatic. Normocephalic. No temporal wasting, or tenderness. EYES: [place] conjunctiva. No petechia or hemorrhage. Pupils equal, round and reactive to light. Extraocular movements full and intact. No scleral icterus. No injection or drainage. EARS, NOSE AND THROAT: Nose without bleeding or purulent nasal discharge. No sinus tenderness. Very dry oral mucosa. NECK: Trachea midline. Supple, no meningeal signs CARDIOVASCULAR: Regular rate and rhythm. No murmurs, rubs or gallops heard RESPIRATORY: Clear to auscultation. Breath sounds equal bilaterally. No rales , wheezing or rhonchi. Decreased breath sounds at the bases ABDOMEN: Distended, with mild diffuse abdominal tenderness, tympanitic on percussion. Bowel sounds present and normoactive. : Dan cath in place. L labia is swollen but not red EXTREMITIES: No clubbing, cyanosis. Has improving bilateral pedal edema. Has wound L leg with some slough, no surrounding cellulitis NEUROLOGICAL: Grossly non-focal PSYCHIATRIC: Cooperative LINE: No evidence of infection Assessment & Plan Remarks IMPRESSION Sepsis with shock, due to endocarditis - BP stable - has MOSF - previously had GAS, then MSSA - now MSSA MSSA endocarditis - echo with large TV veg and now also with AV veg Has pulmonary septic emboli Has UTI Renal insufficiency, worsening Pancytopenia, improving - thrombocytopenia worse again Known very poor compliance to medical Rx DIC, better New SZ - ?emboli to brain, ?mycotic aneurysm RECOMMENDATION Continue Ancef Continue Levaquin to have some pulmonary coverage Agree with brain MRI Progression of infection due to poor compliance to medical treatment Monitor progress She will need a course of IV antibiotics for her endocarditis D/W RN D/W DR Martin Pulido ([facility]) Long discussion with mother Milana Harp MD September 26, 2017 12:44
[2017-09-26 13:20] LABS: INTERNATIONAL NORMALIZED RATIO 1.2 RATIO; PROTHROMBIN TIME - PATIENT 11.8 SEC (9.8-11.6)
--- NOTE | 2017-09-26 14:26 | EKG ---
Date Performed: 09/25/2017 Time Performed: 12:19:28 PTAGE: 37 years EKG: Sinus rhythm . Poor R wave progression - probable normal variant Low QRS voltages in limb leads Borderline ECG PREVIOUS TRACING : 09/19/2017 20.07 DOCTOR: Jens Rodríguez Interpretating Date/Time 09/28/2017 07:42:54
--- NOTE | 2017-09-26 14:34 | HHI.NPPN ---
Subjective History of Present Illness Patient is a 37-year-old with IVDA and endocarditis with acute renal failure Additional Remarks had seizure transfer to Unit Review of Systems General Constitutional: Fatigue Musculoskeletal MS: Pain/Stiffness Objective Data Data 09/26/17 09/27/17 19:00 07:00 Intake Total 400 ml Balance 400 ml IV Total 400 ml Vital Signs Date Time Temp Pulse Resp B/P (MAP) Pulse Ox O2 Delivery O2 Flow Rate FiO2 09/26/17 14:00 75 09/26/17 12:00 97.8 86 17 123/71 (88) 97 09/26/17 12:00 86 09/26/17 11:34 82 14 125/75 (92) 96 09/26/17 09:00 Nasal Cannula 5.00 96 09/26/17 08:00 95 09/26/17 07:00 98.0 87 21 124/73 (90) 95 09/26/17 04:00 87 09/26/17 04:00 97.6 90 19 135/80 (98) 95 09/26/17 04:00 Nasal Cannula 3.00 09/26/17 00:03 98.0 96 19 108/57 (74) 91 09/26/17 00:00 93 09/26/17 00:00 Nasal Cannula 3.00 09/25/17 20:00 Nasal Cannula 2.00 09/25/17 20:00 97.9 102 20 145/68 (93) 92 09/25/17 20:00 94 09/25/17 17:09 98.2 100 16 126/74 (91) 92 09/25/17 16:50 98.4 100 18 125/70 (88) 92 09/25/17 16:00 93 09/25/17 15:48 97.7 102 20 126/71 (89) 100 09/25/17 15:35 97.8 100 16 126/74 (91) 92 09/25/17 15:15 Nasal Cannula 2.00 -: 09/26/17 0444 09/26/17 0444 Microbiology 09/25/17 Gram Stain - Final, Resulted 09/25/17 Body Fluid Culture - Preliminary, Resulted NO GROWTH IN 24 HOURS. Physical Exam General Appearance: Pale Neck Neck Exam: Neck Supple Pulmonary Resp Exam: Decreased Bases Cardiology CV Exam: Regular Gastrointestinal/Abdomen GI Exam: Soft, Non-Tender, Distended, Bowel Sounds Hypoactive Integumentary Skin Exam: Ulcer(s) Extremeties Extremities Exam: Pitting Edema, Dependent Edema Neurologic Neuro Exam: Alert, Awake, Oriented Assessment/Plan Problem List: (1) Acute renal failure ICD Codes: N17.9 - Acute kidney failure, unspecified Plan: This is likely due to underlying endocarditis and severe infection Continue to monitor urine output Patient is dehydrated/ATN Albumin 25 g IV every 12 hourly as ordered UOP? Cr 3.99 K 3 replaced has diarrheas C diff pending Cr again high sz follow I/O reinsert Dan catheter PhosLo 667 mg 2 TID with meals endocarditis AV Vegetation TV Big mobile Vegetation ultrasound abdomen small amount ascites kidney size normal he has hepatosplenomegaly possible cirrhosis Follow BMP Paracentesis done 1.6 L (2) Endocarditis ICD Codes: I38 - Endocarditis, valve unspecified Status: Acute Plan: Due to IVDA (3) Severe sepsis ICD Codes: A41.9 - Sepsis, unspecified organism; R65.20 - Severe sepsis without septic shock Status: Acute Plan: Staph aureus septicemia Azalea Gillette MD September 26, 2017 14:34
--- NOTE | 2017-09-26 17:25 | MB ---
cc: Bhargavi Cortés MD, Dalia MD DATE: 09/26/2017 REASON FOR CONSULTATION: Seizure. HISTORY OF PRESENT ILLNESS: This is a 37-year-old woman with a history of IV drug use, prior diagnosis of tricuspid valve endocarditis, cocaine abuse, did not get treated and signed out AMA. She came back into the hospital with decreased level of consciousness. She had blood cultures that grew MSSA. She also signed out a second time apparently, per chart notes. ID has been following her now. Her echo showed a large tricuspid valve vegetation with moderate to severe regurgitation and AV vegetation and moderate AI. She is transferred back to the ICU now for a witnessed seizure. ID is recommending Ancef and Levaquin. Brain MRI and EEG are pending. She was loaded with Keppra. PHYSICAL EXAMINATION: VITAL SIGNS: Temperature is 98.7, pulse 87, respiratory rate 18, blood pressure 120/73, satting at 94%. NEUROLOGIC: She is awake and alert. She knows she is in the hospital. She is asking for food. Her pupils are reactive. Face looks fairly symmetrical. She seems to move her arms and legs fairly symmetrical but does not follow for cerebellar testing. Toes withdraws. Gait is withheld at this time. IMAGING STUDIES: CT on admission did not show anything acute. IMPRESSION: Seizure. May be due to withdrawal, may be due to brain lesion due to the endocarditis. Recommend an MRI of the brain. We will get an electroencephalogram. She was already loaded with Keppra. Continue 500 mg b.i.d. Maintain seizure precautions. Continue current care for endocarditis per primary team and per infectious disease. MD BINU Kam/ , 04:36 PM , 05:24 PM
--- NOTE | 2017-09-26 17:29 | MG ---
cc: Bhargavi Cortés MD REFERRING PHYSICIAN: Dr. Ch. EEG NUMBER: [id number] INDICATION: Room 1312 with photic done. Awake, drowsy, asleep. CT is unremarkable. Admitted with a change in mental status due to endocarditis. The patient had apparently a seizure today, was loaded with Keppra. DESCRIPTION OF RECORD: During the recording, the patient had a background of about 5 Hz theta slowing. Some artifact was seen from movement throughout, documented. EKG portion does look sinus. Photic stimulation was done with no significant driving response. No epileptiform features. IMPRESSION: Mild to moderate slowing of background, may be postictal due to seizure versus encephalopathic process. No epileptiform features. Clinical correlation. Bhargavi Cortés MD DF/NIKIA , 05:05 PM , 05:29 PM
--- NOTE | 2017-09-26 18:30 | RADRPT ---
EXAM DATE: 09/26/2017 6:23 PM EDT AGE/SEX: 37 years / Female INDICATIONS: Seizures. CLINICAL DATA: This is the patient's subsequent encounter. Patient reports that signs and symptoms h ave been present for 2 weeks and indicates a pain score of 0/10. MEDICAL/SURGICAL HISTORY: . Endocarditis None. COMPARISON: No prior [place] exams available for comparison. TECHNIQUE: Multiplanar, multisequence examination of the brain was performed without contrast. FINDINGS: Cerebrum: The ventricles are normal for age. No evidence of midline shift, mass lesion, hemorrhage or acute infarction. No extraaxial fluid collections are seen. The pituitary gland and suprasellar cistern are normal in configuration. Hippocampi appear symmetric. White Matter: No significant signal abnormalities are seen in the white matter. Posterior Fossa: The cerebellum and brainstem are intact. The 4th ventricle is midline. The cerebel lopontine angle is unremarkable. The cerebellar tonsils are normal in position. Diffusion Imaging: No focal areas of restricted diffusion are seen. No evidence of acute infarction . Extracranial: The visualized portions of the orbits are unremarkable. Mild periosteal thickening inv olving the left sphenoid sinus. CONCLUSION: 1. Negative MR Brain non contrast. 2. Specifically, no evidence for hippocampal sclerosis. 3. Left sphenoid sinus mucosal disease. Electronically signed by: Zenon Busch MD 09/26/2017 6:28 PM EDT
[2017-09-26] MEDS: MUPIROCIN 2% OINT 1 APPLIC/GM SYR EACH NARE SCH (22:02)
[2017-09-26] MEDS: levETIRAcetam INJ 500 MG in SODIUM CHLORIDE 0.9% INJ 100 ML IV SCH (22:02)
[2017-09-27] VITALS (14 sets, daily range): BP systolic 105–127; BP diastolic 53–75; PULSE 74–95; RESP 16–22; TEMP 98–98.4; O2SAT 94–98
[2017-09-27] MEDS: oxyCODONE/ACETAMINOPHEN 10 MG/325 MG TAB PO PRN ×3 (02:34→21:35)
[2017-09-27] MEDS: CHLORHEXIDINE GLUCONATE 2 % 1 PACK (2 CLOTHS) TOP SCH (03:46)
--- NOTE | 2017-09-27 04:04 | RADRPT ---
EXAM DATE: 09/27/2017 3:32 AM EDT AGE/SEX: 37 years / Female INDICATIONS: Short of breath. CLINICAL DATA: This is the patient's subsequent encounter. Patient reports that signs and symptoms h ave been present for 4 - 6 days and indicates a pain score of Nonresponsive. MEDICAL/SURGICAL HISTORY: . Hepatitis C. HIV. Seizures. Smoker. Cardiac disorder None. COMPARISON: [facility] [place], CHEST PA & LAT, 09/25/2017. . FINDINGS: There is diffuse haziness to both lungs probable pulmonary edema. Moderate bilateral pleural effusion s are present and there is left lung base consolidation. There is masslike density in right midlung m easures 2.9 cm in size may be loculated effusion or possibly a lung nodule not significantly changed. Slight cardiomegaly seen and the prior exam demonstrated some degree of nodularity to the lungs as w ell bilaterally partially obscured by diffuse haziness to the lungs. CONCLUSION: 1. There are nodular densities in the lungs the largest ones the right lung and part of his nodules are obscured by hazy pulmonary edema not present previously. 2. Approximate 2.9 cm masslike density right mid lung may be a loculated pleural effusion within the fissure versus a lung mass not significantly changed. 3. Bilateral pleural effusions, left lung base consolidation and diffuse pulmonary edema. 4. Electronically signed by: Thea Valderrama MD 09/27/2017 4:03 AM EDT
[2017-09-27] MEDS: hydrALAZINE HCL 100 MG TAB PO SCH ×3 (05:47→22:00)
[2017-09-27] MEDS: ISOSORBIDE DINITRATE 10 MG TAB PO SCH ×3 (05:47→21:38)
[2017-09-27 06:11] LABS: AUTOMATED NEUTROPHIL # 6.5 TH/MM3 (1.8-7.7); BASOPHIL % 0.5 % (0.0-2.0); EOSINOPHIL # 0.1 TH/MM3 (0-0.4); HEMATOCRIT 24.4 % (35.0-46.0); HEMOGLOBIN 8.3 GM/DL (11.6-15.3); LYMPH % 13.8 % (9.0-44.0); LYMPHOCYTE # 1.1 TH/MM3 (1.0-4.8); MEAN CELL VOLUME 82.4 FL (80.0-100.0); MEAN CORPUSCULAR HEMOGLOBIN 27.9 PG (27.0-34.0); MEAN CORPUSCULAR HGB CONC 33.9 % (32.0-36.0); MEAN PLATELET VOLUME 9.6 FL (7.0-11.0); MONO % 4.2 % (0.0-8.0); MONOCYTE # 0.3 TH/MM3 (0-0.9); NEUT % 80.5 % (16.0-70.0); PLATELET COUNT 116 TH/MM3 (150-450); RED BLOOD COUNT 2.96 MIL/MM3 (4.00-5.30); RED CELL DISTRIBUTION WIDTH 18.9 % (11.6-17.2); WHITE BLOOD COUNT 8.1 TH/MM3 (4.0-11.0)
[2017-09-27 06:37] LABS: ALBUMIN 2.6 GM/DL (3.4-5.0); AST (GOT) 15 U/L (15-37); BICARBONATE 27.3 MEQ/L (21.0-32.0); BLOOD UREA NITROGEN 61 MG/DL (7-18); CALCIUM 8.8 MG/DL (8.5-10.1); CHLORIDE 100 MEQ/L (98-107); CREATININE 4.21 MG/DL (0.50-1.00); GLOMERULAR FILTRATION RATE 12 ML/MIN (>89); GLUCOSE,RANDOM 90 MG/DL (74-106); MAGNESIUM 2.1 MG/DL (1.5-2.5); SODIUM (NA) 139 MEQ/L (136-145)
[2017-09-27 06:39] LABS: ALT (GPT) LESS THAN 6 U/L (10-53); PHOSPHORUS 6.9 MG/DL (2.5-4.9)
[2017-09-27 06:49] LABS: ALKALINE PHOSPHATASE 78 U/L (45-117); FREE T3 1.48 PG/ML (2.18-3.98); FREE T4 1.43 NG/DL (0.76-1.46); TOTAL BILIRUBIN ADULT 0.4 MG/DL (0.2-1.0); TOTAL PROTEIN 6.6 GM/DL (6.4-8.2)
--- NOTE | 2017-09-27 07:50 | RADRPT ---
EXAM DATE: 09/25/2017 5:36 PM EDT AGE/SEX: 37 years / Female INDICATIONS: Ascites. CLINICAL DATA: This is the patient's initial encounter. Patient reports that signs and symptoms have been present for 4 - 6 days and indicates a pain score of 5/10. MEDICAL/SURGICAL HISTORY: . Pulmonary embolism. HIV. Seizures. Chest pain. Abdominal pain. Depr ession. Anxiety. IV drug use. MRSA. Cdiff. None. COMPARISON: No prior [place] exams available for comparison. No external comparison. FLUID: Total volume of 1,400 cc of clear, red fluid was removed. Fluid was sent to lab for ordered studies. . . TECHNIQUE: Ultrasound guidance for abdominal paracentesis. Paracentesis. The risks, benefits, and alternatives to ultrasound guided paracentesis were explained to the patient in detail including the risk of bleeding and infection. Written and verbal informed consent was obt ained. With the patient on the ultrasound table, ultrasound imaging was used to select the most appropriate approach for paracentesis. Overlying skin was prepped and draped in the usual sterile fashion and wi th a local anesthetic, a dermatotomy was made with an 11 blade scalpel. A 6 [place] [id number] ca theter was introduced into the peritoneal cavity and fluid was collected. Post procedure scanning reveals no hematoma or other complication. The patient tolerated the procedu re well and left the ultrasound suite in stable condition. CONCLUSION: 1. Successful paracentesis as above Electronically signed by: Dung Warren MD 09/27/2017 7:49 AM EDT
[2017-09-27] MEDS: INSULIN ASPART SUPPLEMENTAL SCALE SQ SCH ×4 (08:00→21:00)
[2017-09-27] MEDS: SODIUM CHLORIDE 0.9% FLUSH 10 ML FLUSH IV FLUSH SCH ×2 (09:00→21:36)
[2017-09-27] MEDS: METOPROLOL TARTRATE 25 MG TAB PO SCH ×2 (09:00→21:34)
[2017-09-27] MEDS: MUPIROCIN 2% OINT 1 APPLIC/GM SYR EACH NARE SCH ×2 (09:00→21:00)
[2017-09-27] MEDS: SPIRONOLACTONE 25 MG TAB PO SCH ×2 (09:21→17:13)
[2017-09-27] MEDS: ALBUMIN 25% INJ 100 ML IV SCH ×2 (09:21→17:13)
[2017-09-27] MEDS: THIAMINE HCL 100 MG TAB PO SCH (09:21)
[2017-09-27] MEDS: levETIRAcetam INJ 500 MG in SODIUM CHLORIDE 0.9% INJ 100 ML IV SCH ×2 (09:21→21:35)
[2017-09-27] MEDS: PANTOPRAZOLE SOD 40 MG DELAYED RELEASE TAB PO SCH (09:21)
[2017-09-27] MEDS: CALCIUM ACETATE 667 MG CAP PO SCH ×3 (09:21→17:13)
[2017-09-27] MEDS: DOCUSATE SODIUM 50 MG/SENNA 8.6 MG TAB PO SCH ×2 (09:21→21:00)
[2017-09-27] MEDS: ceFAZolin 2 GM PREMIX 50 ML IV SCH ×2 (09:22→21:35)
[2017-09-27] MEDS: BUMETANIDE 1 MG TAB PO SCH ×2 (09:22→17:13)
[2017-09-27] MEDS: amLODIPine BESYLATE 5 MG TAB PO SCH (09:22)
[2017-09-27] MEDS: MEGESTROL ACETATE 40 MG TAB PO SCH ×2 (09:22→21:36)
--- NOTE | 2017-09-27 09:38 | HHI.IDPN ---
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 Patient also had another admission in July, and at that time her blood cultures grew methicillin sensitive staph aureus. She signed out AGAINST MEDICAL ADVICE again at that time. When she came in this time, her CBC showed pancytopenia. CT of the chest showed evidence of multiple pulmonary septic emboli. 2 blood cultures done are now showing staph aureus. She was also hypotensive, and also had an elevated creatinine. Her urine output has been low. CT of the head did not show any significant abnormality. CT of the abdomen and pelvis showed splenomegaly. Patient currently still lethargic, and moaning. She is complaining of pain throughout her whole body. She is on Celso-Synephrine. Infectious disease consultation has been requested to evaluate the patient. Notes reviewed D/W RN No further seizure Brain MRI no contrast - negative Temps ok BP ok No GARCIA Her echo showed a large TV veg, with mod to severe TR and an AV veg with moderate AI Creatinine worsening Platelets stable Spoke with Mom at bedside Antibiotics Ancef Levaquin Current Medications Medications (Trade) Dose Ordered Sig/Amy Route Start Time Stop Time Status Last Admin (NS Flush) 2 ml UNSCH PRN IV FLUSH 09/16/17 17:00 09/22/17 21:11 (NS Flush) 2 ml BID IV FLUSH 09/16/17 21:00 09/27/17 09:00 (Albuterol Neb) 2.5 mg Q2HR NEB PRN INH 09/16/17 17:00 ([facility] Nursing Information) 1 Q361D XX 09/16/17 17:00 09/16/17 20:22 (Chlorhexidine 2% Cloth) Taper DAILY@04 TOP 09/17/17 04:00 09/13/18 03:59 09/27/17 03:46 (Chlorhexidine 2% Cloth) 3 pack UNSCH PRN TOP 09/16/17 17:00 (Paula-Colace) 1 tab BID PO 09/16/17 21:00 09/27/17 09:21 (Milk Of Magnesia Liq) 30 ml Q12H PRN PO 09/16/17 17:00 09/19/17 11:19 (Senokot) 17.2 mg Q12H PRN PO 09/16/17 17:00 09/19/17 09:43 (Dulcolax Supp) 10 mg DAILY PRN RECTAL 09/16/17 17:00 09/19/17 11:20 (Lactulose Liq) 30 ml DAILY PRN PO 09/16/17 17:00 09/19/17 07:45 (Phenergan Inj) 25 mg Q6H PRN IM 09/16/17 17:00 09/21/17 05:29 (Percocet 10-325 Mg) 1 tab Q4H PRN PO 09/17/17 08:30 09/27/17 02:34 (Lopressor) 12.5 mg Q12HR PO 09/20/17 00:30 09/27/17 09:00 Albumin Human 100 ml @ 60 mls/hr BID IV 09/21/17 21:00 09/27/17 09:21 Cefazolin Sodium/ Dextrose 50 ml @ 100 mls/hr Q12H IV 09/24/17 10:00 09/27/17 09:22 (Norvasc) 10 mg DAILY PO 09/25/17 09:00 09/27/17 09:22 (Vitamin B1) 100 mg DAILY PO 09/25/17 09:00 09/27/17 09:21 (Phoslo) 1,334 mg TID PO 09/24/17 13:00 09/27/17 09:21 (Apresoline) 100 mg Q8HR PO 09/25/17 14:00 09/27/17 05:47 (Isordil) 10 mg Q8HR PO 09/25/17 14:00 09/27/17 05:47 (Megace) 40 mg Q12HR PO 09/25/17 10:30 09/27/17 09:22 (Aldactone) 25 mg BID@ PO 09/25/17 22:00 09/27/17 09:21 (Bumetanide) 1 mg BID@,18 PO 09/25/17 22:00 09/27/17 09:22 Levetriacetam 500 mg/Sodium Chloride 105 ml @ 420 mls/hr Q12HR IV 09/26/17 21:00 09/27/17 09:21 (D50w (Vial) Inj) 50 ml UNSCH PRN IV PUSH 09/26/17 09:30 (Glucagon Inj) 1 mg UNSCH PRN OTHER 09/26/17 09:30 (NovoLOG SUPPLEMENTAL SCALE) 1 ACHS SLIDING SCALE SQ 09/26/17 12:00 09/26/17 21:00 (Protonix) 40 mg DAILY PO 09/27/17 09:00 09/27/17 09:21 (Bactroban Nasal 2% Oint) 1 applic Taper BID EACH NARE 09/26/17 21:00 09/22/18 20:59 09/27/17 09:00 Lines Line no evidence of infection Past Medical History Hepatitis C Tricuspid valve endocarditis Group A strep sepsis MSSA sepsis Known active IV drug use Allergies: Coded Allergies: No Known Allergies (Unverified Allergy, Unknown, 08/13/17) Objective . Vital Signs Date Time Temp Pulse Resp B/P (MAP) Pulse Ox O2 Delivery O2 Flow Rate FiO2 09/27/17 08:00 98.3 85 18 105/59 (74) 94 09/27/17 08:00 83 09/27/17 07:00 92 Nasal Cannula 4.00 09/27/17 06:00 88 09/27/17 04:32 98.4 91 20 114/60 (78) 94 09/27/17 04:00 92 09/27/17 03:45 15 09/27/17 02:00 95 09/27/17 00:00 88 09/27/17 00:00 98.2 89 17 105/57 (73) 96 09/26/17 22:00 74 09/26/17 20:00 97.9 95 18 110/56 (74) 98 09/26/17 20:00 82 09/26/17 19:25 96 Nasal Cannula 4.00 09/26/17 18:00 81 09/26/17 16:00 87 09/26/17 16:00 98.7 87 18 120/73 (89) 94 09/26/17 14:00 75 09/26/17 12:00 97.8 86 17 123/71 (88) 97 09/26/17 12:00 86 09/26/17 11:34 82 14 125/75 (92) 96 . Laboratory Tests Test 09/26/17 04:44 09/27/17 04:57 White Blood Count 7.8 TH/MM3 8.1 TH/MM3 Red Blood Count 2.95 MIL/MM3 2.96 MIL/MM3 Hemoglobin 8.0 GM/DL 8.3 GM/DL Hematocrit 24.0 % 24.4 % Mean Corpuscular Volume 81.5 FL 82.4 FL Mean Corpuscular Hemoglobin 27.2 PG 27.9 PG Mean Corpuscular Hemoglobin Concent 33.4 % 33.9 % Red Cell Distribution Width 18.9 % 18.9 % Platelet Count 116 TH/MM3 116 TH/MM3 Mean Platelet Volume 9.4 FL 9.6 FL Neutrophils (%) (Auto) 77.8 % 80.5 % Lymphocytes (%) (Auto) 16.3 % 13.8 % Monocytes (%) (Auto) 4.1 % 4.2 % Eosinophils (%) (Auto) 1.4 % 1.0 % Basophils (%) (Auto) 0.4 % 0.5 % Neutrophils # (Auto) 6.0 TH/MM3 6.5 TH/MM3 Lymphocytes # (Auto) 1.3 TH/MM3 1.1 TH/MM3 Monocytes # (Auto) 0.3 TH/MM3 0.3 TH/MM3 Eosinophils # (Auto) 0.1 TH/MM3 0.1 TH/MM3 Basophils # (Auto) 0.0 TH/MM3 0.0 TH/MM3 CBC Comment DIFF FINAL AUTO DIFF Differential Comment Laboratory Tests Test 09/26/17 04:44 09/26/17 11:13 09/27/17 04:57 Blood Urea Nitrogen 54 MG/DL 61 MG/DL Creatinine 3.99 MG/DL 4.21 MG/DL Random Glucose 90 MG/DL 90 MG/DL Albumin 2.6 GM/DL 2.6 GM/DL Calcium Level 8.7 MG/DL 8.8 MG/DL Phosphorus Level 6.8 MG/DL 6.9 MG/DL Magnesium Level 1.9 MG/DL 2.1 MG/DL Sodium Level 139 MEQ/L 139 MEQ/L Potassium Level 3.3 MEQ/L 4.1 MEQ/L Chloride Level 99 MEQ/L 100 MEQ/L Carbon Dioxide Level 30.0 MEQ/L 27.3 MEQ/L Anion Gap 10 MEQ/L 12 MEQ/L Estimat Glomerular Filtration Rate 13 ML/MIN 12 ML/MIN Lactic Acid Level 0.6 mmol/L Ammonia 13 MCMOL/L Lactate Dehydrogenase 177 U/L Amylase Level 158 U/L Lipase 642 U/L Thyroid Stimulating Hormone 3rd Gen 15.800 uIU/ML Prolactin 51 ng/mL Total Protein 6.6 GM/DL Alkaline Phosphatase 78 U/L Aspartate Amino Transf (AST/SGOT) 15 U/L Alanine Aminotransferase (ALT/SGPT) LESS THAN 6 U/L Total Bilirubin 0.4 MG/DL Free Thyroxine 1.43 NG/DL Free Triiodothyronine (T3) pg/dL 1.48 PG/ML Microbiology Date/Time Source Procedure Growth Status 09/25/17 16:44 Fluid Peritoneal Fluid Gram Stain - Final Resulted 09/25/17 16:44 Fluid Peritoneal Fluid Body Fluid Culture - Preliminary NO GROWTH IN 24 HOURS. Resulted 09/25/17 09:50 Urine Clean Catch Urine Culture - Preliminary Group D Enterococcus Resulted Imaging Last Impressions Chest X-Ray 09/16/17 1504 Signed Impressions: Service Date/Time: Saturday, September 16, 2017 15:28 - CONCLUSION: 1. Patchy bilateral lower lobe airspace disease, more prominent on the right. Findings are concerning for multilobar pneumonia or aspiration. Zenon Busch MD Head CT 09/16/17 0000 Signed Impressions: Service Date/Time: Saturday, September 16, 2017 17:56 - CONCLUSION: 1. No acute intracranial abnormality. 2. Left maxillary and sphenoid sinus mucosal disease. Zenon Busch MD Chest CT 09/16/17 0000 Signed Impressions: Service Date/Time: Saturday, September 16, 2017 18:04 - CONCLUSION: 1. Small bilateral pleural effusions with dense bilateral lower lobe airspace consolidation. 2. Numerous bilateral inflammatory pulmonary nodules including cavitary nodules in the apices bilaterally. Findings are consistent with septic emboli. Zenon Busch MD Abdomen/Pelvis CT 09/16/17 0000 Signed Impressions: Service Date/Time: Saturday, September 16, 2017 18:04 - CONCLUSION: 1. Limited examination due to paucity of peritoneal fat and patient's overlying arms. 2. Hepatosplenomegaly with small amount of ascites. 3. Small to moderate amount of colonic stool without evidence for bowel obstruction. Zenon Busch MD Physical Exam GENERAL: Awake and alert, not in distress. Up in recliner chair SKIN: Warm and dry. No generalized rash, no ecchymoses and no evidence of embolic lesions. HEAD: Atraumatic. Normocephalic. No temporal wasting, or tenderness. EYES: [place] conjunctiva. No petechia or hemorrhage. Pupils equal, round and reactive to light. Extraocular movements full and intact. No scleral icterus. No injection or drainage. EARS, NOSE AND THROAT: Nose without bleeding or purulent nasal discharge. No sinus tenderness. Very dry oral mucosa. NECK: Trachea midline. Supple, no meningeal signs CARDIOVASCULAR: Regular rate and rhythm. No murmurs, rubs or gallops heard RESPIRATORY: Clear to auscultation. Breath sounds equal bilaterally. No rales , wheezing or rhonchi. Decreased breath sounds at the bases ABDOMEN: Distended, with mild diffuse abdominal tenderness, tympanitic on percussion. Bowel sounds present and normoactive. : Dan cath in place. EXTREMITIES: No clubbing, cyanosis. Has improving bilateral pedal edema. Has wound L leg with some slough, no surrounding cellulitis NEUROLOGICAL: Grossly non-focal PSYCHIATRIC: Cooperative LINE: No evidence of infection Assessment & Plan Remarks IMPRESSION Sepsis with shock, due to endocarditis - BP stable - has MOSF - previously had GAS, then MSSA - now MSSA MSSA endocarditis - echo with large TV veg and now also with AV veg Has pulmonary septic emboli Has UTI Renal insufficiency, worsening Pancytopenia, improving - thrombocytopenia worse again Known very poor compliance to medical Rx DIC, better New SZ - ?emboli to brain, ?mycotic aneurysm RECOMMENDATION Continue Ancef Stop LevaquinI Progression of infection due to poor compliance to medical treatment Monitor progress She will need a course of IV antibiotics for her endocarditis D/W RN Spoke with mother Milana Harp MD September 27, 2017 09:38
--- NOTE | 2017-09-27 10:09 | HHI.CCPN ---
Subjective Remarks/Hospital Course 09/16: 37-year-old female with past medical history of IV drug use, cocaine abuse , tricuspid valve endocarditis, hepatitis C who was brought to [facility] emergency department via [facility] due to decreased level of consciousness. She has multiple admissions to [facility] related to endocarditis including 07/13-07/18 (group B strep bacteremia), 08/20-08/27 (MSSA bacteremia), -09/09 (MSSA bacteremia). On each occasion, she left AMA. Echo from 09/08/17 demonstrated ejection fraction of 50%, mild AI, moderate MR, moderate TR. She has a tricuspid valve vegetation. Her temp is 99.9. She is pancytopenic with white blood cell count of 3.3, platelets 41, hemoglobin 7.1. She has acute kidney injury with creatinine of 2.15. AST is elevated. She received 500 mL of fluid per EVAC and an additional 3 L normal saline bolus in the emergency department. She received vancomycin, Zosyn, calcium. [facility] was consulted for admission. CT scans have been ordered but were pending at the time of admission. 09/17: Resting in bed. Complaining of generalized pain 09/18 Off neosynephrine. Platelet count down to 16, labs c/w DIC. No active bleeding. She is complaining of pain "everywhere" particularly [her buttocks] . Oliguric despite large volume fluids. 09/19: Laying in bed this morning at the time of my evaluation. Not in any acute distress. Complains of pain all the time. Demanding narcotics. Had a large BM later today. 09/26: Reconsult secondary to seizure activity and floor. Approximate 5 minutes per RN though total duration not definitive. She does have a history of seizures likely due to withdrawal. Currently on methadone and famotidine along with levofloxacin.. Methadone and famotidine to be discontinued. Defer antibiotic management to infectious disease. MRI brain/EEG and neurology consult pending. Currently awake and alert with childlike "help me" interaction. Asking for mother and father. Subjective: 09/27: No new seizure activity overnight. Less confused this a.m. MRI brain revealed no acute intracranial abnormalities. EEG revealed no epileptiform activity Objective Vital Signs Date Time Temp Pulse Resp B/P (MAP) Pulse Ox O2 Delivery O2 Flow Rate FiO2 09/27/17 10:00 88 09/27/17 08:00 98.3 18 105/59 (74) 94 09/27/17 07:00 Nasal Cannula 4.00 09/26/17 09:00 96 Intake and Output 09/27/17 09/27/17 09/27/17 07:59 15:59 23:59 Output Total 450 ml Balance -450 ml Result Diagram: 09/27/17 0457 09/27/17 0457 Other Results Microbiology Date/Time Source Procedure Growth Status 09/21/17 16:44 Blood Peripheral Aerobic Blood Culture - Final NO GROWTH IN 5 DAYS Complete 09/21/17 16:44 Blood Peripheral Anaerobic Blood Culture - Final NO GROWTH IN 5 DAYS Complete 09/25/17 16:44 Fluid Peritoneal Fluid Gram Stain - Final Resulted 09/25/17 16:44 Fluid Peritoneal Fluid Body Fluid Culture - Preliminary NO GROWTH IN 24 HOURS. Resulted 09/25/17 09:50 Urine Clean Catch Urine Culture - Preliminary Group D Enterococcus Resulted Imaging Last Impressions Chest X-Ray 09/27/17 0600 Signed Impressions: CONCLUSION: 1. There are nodular densities in the lungs the largest ones the right lung an d part of his nodules are obscured by hazy pulmonary edema not present previous ly. 2. Approximate 2.9 cm masslike density right mid lung may be a loculated pleur al effusion within the fissure versus a lung mass not significantly changed. 3. Bilateral pleural effusions, left lung base consolidation and diffuse pulmo nary edema. 4. Brain MRI 09/26/17 Signed Impressions: CONCLUSION: 1. Negative MR Brain non contrast. 2. Specifically, no evidence for hippocampal sclerosis. 3. Left sphenoid sinus mucosal disease. Cyst Biopsy Asp-Paracentesis US 09/25/17 Signed Impressions: CONCLUSION: 1. Successful paracentesis as above Abdomen X-Ray 09/25/17 Signed Impressions: CONCLUSION: Probable ascites. Upper Extremity Ultrasound 09/19/17 Signed Impressions: CONCLUSION: 1. No evidence of DVT. Lower Extremity Ultrasound 09/19/17 Signed Impressions: CONCLUSION: 1. No evidence of DVT. Abdomen Ultrasound 09/19/17 Signed Impressions: CONCLUSION: 1. Diffusely enlarged liver with increased echogenicity suggestive of fatty in filtration and/or hepatocellular disease. 2. Small amount of ascites in the upper abdomen. 3. No definite gallstones. There is thickening of the gallbladder wall at 7 mm . 4. The spleen is diffusely enlarged with several hypoechoic densities within t he spleen. There are splenic granulomas present. Head CT 09/16/17 Signed Impressions: Service Date/Time: Saturday, September 16, 2017 17:56 - CONCLUSION: 1. No acute intracranial abnormality. 2. Left maxillary and sphenoid sinus mucosal disease. Zenon Busch MD Chest CT 09/16/17 Signed Impressions: Service Date/Time: Saturday, September 16, 2017 18:04 - CONCLUSION: 1. Small bilateral pleural effusions with dense bilateral lower lobe airspace consolidation. 2. Numerous bilateral inflammatory pulmonary nodules including cavitary nodules in the apices bilaterally. Findings are consistent with septic emboli. Zenon Busch MD Abdomen/Pelvis CT 09/16/17 0000 Signed Impressions: Service Date/Time: Saturday, September 16, 2017 18:04 - CONCLUSION: 1. Limited examination due to paucity of peritoneal fat and patient's overlying arms. 2. Hepatosplenomegaly with small amount of ascites. 3. Small to moderate amount of colonic stool without evidence for bowel obstruction. Zenon Busch MD Objective Remarks GENERAL: 37-year-old female currently resting in bed in no acute distress. Less confused than yesterday SKIN: Warm and dry. There are track christina present on her bilateral arms and anterior medial aspect shins. There is a 3 cm wound over the medial aspect of her right osorio currently covered with serous drainage. There is also a 3 cm wound over the medial aspect of left lower leg with some serous drainage. HEAD: Atraumatic. Normocephalic. EYES: Pupils equal and round, 2 mm react. No scleral icterus. Bilateral conjunctival injection. ENT: No nasal bleeding or discharge. Mucous membranes moist. NECK: Trachea midline. CARDIOVASCULAR: Regular rate and rhythm. S1, S3 no S4. 3/6 systolic murmur LLSB and right upper sternal border RESPIRATORY: Diminished breath sounds right greater than left lower lobes. No wheezing. GASTROINTESTINAL: Abdomen slightly distended. Reducible., hypoactive bowel sounds. +palpable hepatomegaly. MUSCULOSKELETAL: Extremities with trace to 1+ 1+ bipedal edema,. Much improving edema of LUE. NEUROLOGICAL: Awake and alert. Oriented to person, place and year. No obvious cranial nerve deficits. Motor grossly within normal limits moving all 4 spontaneously. Urinary Catheter: Yes Assessment to: Continue Dan insert reason: Prolonged Immobilization Vascular Central Line Catheter: No Assessment to: Continue A/P Assessment and Plan NEURO/PSYCH: Acute seizure Acute encephalopathy, secondary to sepsis improved. History of chronic drug use Opioid dependent Benzodiazepine abuse Cocaine abuse Admission CT brain - no acute abnormality. Left maxillary and sphenoid sinus disease On methadone 10 mg daily and oxycodone/acetaminophen 10/325 mg p.o. every 4 hourly as needed for pain and to avoid withdrawal Discontinue methadone due to seizure activity Discontinued famotidine due to seizure activity. MRI brain 09/26 no acute intracranial abnormality/EEG 09/26 revealed no epileptiform activity Loaded with levetiracetam 500 mg 1 followed by 500 mg twice daily Neurology consultation Dr. Cortés Seizure precautions Prolactin level was elevated at 51 RESP: Bilateral septic pulmonary emboli Right pleural effusion Nasal cannula to maintain saturations greater than or equal to 92%. Currently 4 L Incentive spirometry while awake As needed albuterol/ipratropium aerosols Follow-up chest x-ray in a.m. 09/28 CV: Aortic valve and tricuspid valve endocarditis Tricuspid valve vegetation with severe TR Essential hypertension Currently on metoprolol 12.5 mg by mouth twice daily, amlodipine 10 mg p.o. daily, hydralazine 100 mg 3 times daily and isosorbide dinitrate 10 mg 3 times daily Diuresing with bumetanide 1 mg IV twice daily Currently hemodynamically stable. See renal for diuretics/colloid therapy Evaluated by CT surgery but not a candidate for valve replacement secondary to ongoing drug use. 6 months of drug abstinence before reevaluation GI: Abdominal pain NOS -probable SBP Hepatosplenomegaly Moderate protein energy malnutrition Hypoalbuminemia Hep C antibody positive Abdominal ascites Heart healthy diet as tolerated CT abdomen and pelvis - Hepatosplenomegaly with small ascites. Moderate amount of stool in the colon without evidence of bowel obstruction. Status post paracentesis 09/25 with high WBCs noted.. 1800 cc removed Hepatitis C genotype and viral load pending FEN/RENAL: Acute kidney injury Hyperphosphatemia Dan in place. Monitor and intake and output Creatinine currently 4.2 Currently on calcium acetate 1334 mg 3 times daily. Nephrology following. ID: Group D enterococcus UTI Aortic valve/tricuspid valve endocarditis with medical nonadherence and ongoing IV drug use Right lower leg abscess - Blood culture 09/16 MSSA Blood culture 09/18 staph or Urine culture 09/16 - no growth Blood culture 09/19 09/21 -no growth 09/25 -urine culture -group D enterococcus 09/25 -peritoneal fluid -no growth to date Continue antibiotics per ID: Cefazolin and levofloxacin ID following, Dr. Harp Currently on cefazolin and levofloxacin per infectious disease. Prolonged antibiotic course noted HEME: Pancytopenia on admission Normocytic anemia Thrombocytopenia Monitor CBC daily. Monitor trends ENDO: Elevated TSH Started on levothyroxine 25 mg p.o. daily recheck TSH in several weeks. Free T4 1.43 normal. Free T3 1.48 low. Episodic hypoglycemia Euglycemic currently. We will place on sliding scale insulin with Accu-Cheks to maintain euglycemia PROPH: SCDs for DVT prophylaxis. Initiate pharmacologic DVT prophylaxis at this point with heparin 5000 units subcu twice daily. Pantoprazole for stress ulcer prophylaxis ACCESS: Peripheral IVs. Central line if indicated Level 2 follow-up Stable from critical care medicine standpoint. Assign care to hospitalist in a.m. 09/28 Jhon Ch MD September 27, 2017 10:09
[2017-09-27 10:28] LABS: KERATOCYTES OCC (NORMAL); OVALOCYTES 1+ (NORMAL)
--- NOTE | 2017-09-27 14:04 | HHI.NPPN ---
Subjective History of Present Illness Patient is a 37-year-old with IVDA and endocarditis with acute renal failure Additional Remarks Remains tired open eyes Review of Systems General Constitutional: Fatigue Musculoskeletal MS: Pain/Stiffness Objective Data Data Vital Signs Date Time Temp Pulse Resp B/P (MAP) Pulse Ox O2 Delivery O2 Flow Rate FiO2 09/27/17 12:00 81 09/27/17 10:00 88 09/27/17 08:00 98.3 85 18 105/59 (74) 94 09/27/17 08:00 83 09/27/17 07:00 92 Nasal Cannula 4.00 09/27/17 06:00 88 09/27/17 04:32 98.4 91 20 114/60 (78) 94 09/27/17 04:00 92 09/27/17 03:45 15 09/27/17 02:00 95 09/27/17 00:00 88 09/27/17 00:00 98.2 89 17 105/57 (73) 96 09/26/17 22:00 74 09/26/17 20:00 97.9 95 18 110/56 (74) 98 09/26/17 20:00 82 09/26/17 19:25 96 Nasal Cannula 4.00 09/26/17 18:00 81 09/26/17 16:00 87 09/26/17 16:00 98.7 87 18 120/73 (89) 94 -: 09/27/17 0457 09/27/17 0457 Physical Exam General Appearance: Pale Neck Neck Exam: Neck Supple Pulmonary Resp Exam: Decreased Bases Cardiology CV Exam: Regular Gastrointestinal/Abdomen GI Exam: Soft, Non-Tender, Distended, Bowel Sounds Hypoactive Integumentary Skin Exam: Ulcer(s) Extremeties Extremities Exam: Moderate Edema Neurologic Neuro Exam: Alert, Awake, Oriented Assessment/Plan Problem List: (1) Acute renal failure ICD Codes: N17.9 - Acute kidney failure, unspecified Plan: This is likely due to underlying endocarditis and severe infection Continue to monitor urine output Patient is dehydrated/ATN Albumin 25 g IV every 12 hourly I change it to every 6 hourly today UOP 900+ cc Cr 4.2 on Aldactone/bumex has diarrheas C diff negative Cr again high sz follow I/O Dan catheter PhosLo 667 mg 2 TID with meals endocarditis AV Vegetation TV Big mobile Vegetation ultrasound abdomen small amount ascites kidney size normal he has hepatosplenomegaly possible cirrhosis Follow BMP Paracentesis done 1.4 L (2) Endocarditis ICD Codes: I38 - Endocarditis, valve unspecified Status: Acute Plan: Due to IVDA (3) Severe sepsis ICD Codes: A41.9 - Sepsis, unspecified organism; R65.20 - Severe sepsis without septic shock Status: Acute Plan: Staph aureus septicemia Azalea Gillette MD September 27, 2017 14:04
--- NOTE | 2017-09-27 17:14 | PD.CAR.PN ---
CVT Progress Note Objective: Vital Signs Date Time Temp Pulse Resp B/P (MAP) Pulse Ox O2 Delivery O2 Flow Rate FiO2 09/27/17 16:00 90 09/27/17 16:00 98.4 90 20 117/66 (83) 98 09/27/17 14:00 74 09/27/17 12:00 81 09/27/17 12:00 98.0 75 16 108/53 (71) 97 09/27/17 10:00 88 09/27/17 08:00 98.3 85 18 105/59 (74) 94 09/27/17 08:00 83 09/27/17 07:00 92 Nasal Cannula 4.00 09/27/17 06:00 88 09/27/17 04:32 98.4 91 20 114/60 (78) 94 09/27/17 04:00 92 09/27/17 03:45 15 09/27/17 02:00 95 09/27/17 00:00 88 09/27/17 00:00 98.2 89 17 105/57 (73) 96 09/26/17 22:00 74 09/26/17 20:00 97.9 95 18 110/56 (74) 98 09/26/17 20:00 82 09/26/17 19:25 96 Nasal Cannula 4.00 09/26/17 18:00 81 Result Diagram: 09/27/17 0457 09/27/17 0457 Plan: 37y/o active IV drug user with endocarditis involving aortic and tricuspid valves with multi-organ sequelae. She is NOT an operative candidate and her prognosis is very poor. I will sign-off for now and welcome the opportunity to re-evaluate her if she can be stabilized and abstain from IV drug use. Angelica Enamorado MD September 27, 2017 17:14
[2017-09-27] MEDS: HEPARIN SODIUM - SQ 10,000 UNITS/ML VIAL SQ SCH (21:34)
--- NOTE | 2017-09-27 21:44 | PD.ONC.PN ---
Subjective Subjective Remarks Resting comfortably in bed. Alert, oriented. Objective Data Date Time Temp Pulse Resp B/P (MAP) Pulse Ox O2 Delivery O2 Flow Rate FiO2 09/27/17 18:00 83 09/27/17 16:00 90 09/27/17 16:00 98.4 90 20 117/66 (83) 98 09/27/17 14:00 74 09/27/17 12:00 81 09/27/17 12:00 98.0 75 16 108/53 (71) 97 09/27/17 10:00 88 09/27/17 08:00 98.3 85 18 105/59 (74) 94 09/27/17 08:00 83 09/27/17 07:00 92 Nasal Cannula 4.00 09/27/17 06:00 88 09/27/17 04:32 98.4 91 20 114/60 (78) 94 09/27/17 04:00 92 09/27/17 03:45 15 09/27/17 02:00 95 09/27/17 00:00 88 09/27/17 00:00 98.2 89 17 105/57 (73) 96 09/26/17 22:00 74 09/27/17 09/27/17 09/27/17 07:00 15:00 23:00 Intake Total 500 ml Output Total 450 ml 575 ml Balance -450 ml -75 ml Result Diagram: 09/27/17 0457 09/27/17 0457 Laboratory Results Laboratory Tests Test 09/27/17 04:57 White Blood Count 8.1 TH/MM3 Red Blood Count 2.96 MIL/MM3 Hemoglobin 8.3 GM/DL Hematocrit 24.4 % Mean Corpuscular Volume 82.4 FL Mean Corpuscular Hemoglobin 27.9 PG Mean Corpuscular Hemoglobin Concent 33.9 % Red Cell Distribution Width 18.9 % Platelet Count 116 TH/MM3 Mean Platelet Volume 9.6 FL Neutrophils (%) (Auto) 80.5 % Lymphocytes (%) (Auto) 13.8 % Monocytes (%) (Auto) 4.2 % Eosinophils (%) (Auto) 1.0 % Basophils (%) (Auto) 0.5 % Neutrophils # (Auto) 6.5 TH/MM3 Lymphocytes # (Auto) 1.1 TH/MM3 Monocytes # (Auto) 0.3 TH/MM3 Eosinophils # (Auto) 0.1 TH/MM3 Basophils # (Auto) 0.0 TH/MM3 CBC Comment AUTO DIFF Differential Comment AUTO DIFF CONFIRMED Platelet Estimate LOW Platelet Morphology Comment NORMAL Ovalocytes 1+ Keratocytes OCC Blood Urea Nitrogen 61 MG/DL Creatinine 4.21 MG/DL Random Glucose 90 MG/DL Total Protein 6.6 GM/DL Albumin 2.6 GM/DL Calcium Level 8.8 MG/DL Phosphorus Level 6.9 MG/DL Magnesium Level 2.1 MG/DL Alkaline Phosphatase 78 U/L Aspartate Amino Transf (AST/SGOT) 15 U/L Alanine Aminotransferase (ALT/SGPT) LESS THAN 6 U/L Total Bilirubin 0.4 MG/DL Sodium Level 139 MEQ/L Potassium Level 4.1 MEQ/L Chloride Level 100 MEQ/L Carbon Dioxide Level 27.3 MEQ/L Anion Gap 12 MEQ/L Estimat Glomerular Filtration Rate 12 ML/MIN Free Thyroxine 1.43 NG/DL Free Triiodothyronine (T3) pg/dL 1.48 PG/ML Culture Results Microbiology Date/Time Source Procedure Growth Status 09/25/17 16:44 Fluid Peritoneal Fluid Gram Stain - Final Resulted 09/25/17 16:44 Fluid Peritoneal Fluid Body Fluid Culture - Preliminary NO GROWTH IN 48 HOURS. Resulted 09/25/17 09:50 Urine Clean Catch Urine Culture - Final Enterococcus Faecium Vre Complete Imaging Studies Last 24 hours Impressions Chest X-Ray 09/27/17 0600 Signed Impressions: CONCLUSION: 1. There are nodular densities in the lungs the largest ones the right lung an d part of his nodules are obscured by hazy pulmonary edema not present previous ly. 2. Approximate 2.9 cm masslike density right mid lung may be a loculated pleur al effusion within the fissure versus a lung mass not significantly changed. 3. Bilateral pleural effusions, left lung base consolidation and diffuse pulmo nary edema. 4. Administered Medications Medications (Trade) Dose Ordered Sig/Amy Route PRN Reason Start Time Stop Time Status Last Admin Dose Admin Sodium Chloride (NS Flush) 2 ml UNSCH PRN IV FLUSH FLUSH AFTER USING IV ACCESS 09/16/17 17:00 09/22/17 21:11 Sodium Chloride (NS Flush) 2 ml BID IV FLUSH 09/16/17 21:00 09/27/17 21:36 Miscellaneous Information ([facility] Nursing Information) 1 [id number] XX 09/16/17 17:00 09/16/17 20:22 Chlorhexidine Gluconate (Chlorhexidine 2% Cloth) Taper DAILY@04 TOP 09/17/17 04:00 09/13/18 03:59 09/27/17 03:46 Senna/Docusate Sodium (Paula-Colace) 1 tab BID PO 09/16/17 21:00 09/27/17 09:21 Magnesium Hydroxide (Milk Of Magnesia Liq) 30 ml Q12H PRN PO Mild constipation 09/16/17 17:00 09/19/17 11:19 Sennosides (Senokot) 17.2 mg Q12H PRN PO Moderate constipation 09/16/17 17:00 09/19/17 09:43 Bisacodyl (Dulcolax Supp) 10 mg DAILY PRN RECTAL SEVERE CONSITIPATION 09/16/17 17:00 09/19/17 11:20 Lactulose (Lactulose Liq) 30 ml DAILY PRN PO SEVERE CONSITIPATION 09/16/17 17:00 09/19/17 07:45 Promethazine HCl (Phenergan Inj) 25 mg Q6H PRN IM NAUSEA/VOMITING 09/16/17 17:00 09/21/17 05:29 Oxycodone/ Acetaminophen (Percocet 10-325 Mg) 1 tab Q4H PRN PO pain scale 5-10 09/17/17 08:30 09/27/17 21:35 Metoprolol Tartrate (Lopressor) 12.5 mg Q12HR PO 09/20/17 00:30 09/27/17 21:34 Cefazolin Sodium/ Dextrose 50 ml @ 100 mls/hr Q12H IV 09/24/17 10:00 09/27/17 21:35 Amlodipine Besylate (Norvasc) 10 mg DAILY PO 09/25/17 09:00 09/27/17 09:22 Thiamine HCl (Vitamin B1) 100 mg DAILY PO 09/25/17 09:00 09/27/17 09:21 Calcium Acetate (Phoslo) 1,334 mg TID PO 09/24/17 13:00 09/27/17 17:13 Hydralazine HCl (Apresoline) 100 mg Q8HR PO 09/25/17 14:00 09/27/17 15:40 Isosorbide Dinitrate (Isordil) 10 mg Q8HR PO 09/25/17 14:00 09/27/17 21:38 Megestrol Acetate (Megace) 40 mg Q12HR PO 09/25/17 10:30 09/27/17 21:36 Spironolactone (Aldactone) 25 mg BID@09,18 PO 09/25/17 22:00 09/27/17 17:13 Bumetanide (Bumetanide) 1 mg BID@,18 PO 09/25/17 22:00 09/27/17 17:13 Levetriacetam 500 mg/Sodium Chloride 105 ml @ 420 mls/hr Q12HR IV 09/26/17 21:00 09/27/17 21:35 Insulin Aspart (NovoLOG SUPPLEMENTAL SCALE) 1 ACHS SLIDING SCALE SQ 09/26/17 12:00 09/26/17 21:00 Pantoprazole Sodium (Protonix) 40 mg DAILY PO 09/27/17 09:00 09/27/17 09:21 Mupirocin (Bactroban Nasal 2% Oint) 1 applic Taper BID EACH NARE 09/26/17 21:00 09/22/18 20:59 09/27/17 21:00 Heparin Sodium (Porcine) (Heparin Inj) 5,000 units Q12HR SQ 09/27/17 21:00 09/27/17 21:34 Albumin Human 100 ml @ 60 mls/hr Q6HR IV 09/27/17 18:00 09/27/17 17:13 Objective Remarks GENERAL: Well-nourished, well-developed patient. SKIN: Warm and dry. HEAD: Normocephalic. EYES: No scleral icterus. No injection or drainage. RESPIRATORY: No accessory muscle use. EXTREMITIES: No cyanosis, or edema. MUSCULOSKELETAL: Adequate muscle tone. NEUROLOGICAL: No obvious focal deficit. Awake, alert, and oriented x3. Assessment/Plan Assessment 1. Coagulopathy: resolving, due to DIC due to sepsis, endocarditis. 2. Thrombocytopenia: improving, due to DIC, sepsis, endocarditis, hypersplenism. Continue to follow CBC 3. Anemia: component of inflammatory anemia. 4. Endocarditis, sepsis: currently on antibiotic therapy. ID team following closely. She has been evaluated by CT surgery team. 5. History of IVDA: counseled on abstinence. Maki Izquierdo MD September 27, 2017 21:44
[2017-09-28] VITALS (14 sets, daily range): BP systolic 118–146; BP diastolic 64–79; PULSE 81–107; RESP 16–23; TEMP 98.2–98.8; O2SAT 94–96
[2017-09-28] MEDS: ALBUMIN 25% INJ 100 ML IV SCH ×4 (02:40→17:36)
[2017-09-28 03:51] LABS: HCV RNA PCR IU/ML 9950000 IU/mL (Not Detected)
[2017-09-28] MEDS: CHLORHEXIDINE GLUCONATE 2 % 1 PACK (2 CLOTHS) TOP SCH (04:00)
--- NOTE | 2017-09-28 04:00 | RADRPT ---
EXAM DATE: 09/28/2017 3:48 AM EDT AGE/SEX: 37 years / Female INDICATIONS: Right pleural effusion. CLINICAL DATA: This is the patient's subsequent encounter. Patient reports that signs and symptoms h ave been present for 4 - 6 days and indicates a pain score of 5/10. MEDICAL/SURGICAL HISTORY: . Hepatitis C. HIV. Seizures. Smoker. Cardiac disorder None. COMPARISON: [facility] [place], CHEST SINGLE AP, 09/27/2017. . FINDINGS: Mostly basilar airspace consolidation, left greater than right and bilateral effusions. Heart size mi ldly enlarged. No pneumothorax. CONCLUSION: Stable bilateral airspace disease and pleural effusions compared with September 27. Electronically signed by: Primo De La Cruz MD 09/28/2017 3:58 AM EDT
[2017-09-28] MEDS: ISOSORBIDE DINITRATE 10 MG TAB PO SCH ×3 (06:00→22:00)
[2017-09-28] MEDS: hydrALAZINE HCL 100 MG TAB PO SCH ×3 (06:13→22:36)
[2017-09-28] MEDS: oxyCODONE/ACETAMINOPHEN 10 MG/325 MG TAB PO PRN ×4 (06:13→22:36)
[2017-09-28] MEDS: LEVOTHYROXINE SODIUM 25 MCG TAB PO SCH (06:13)
[2017-09-28] MEDS: INSULIN ASPART SUPPLEMENTAL SCALE SQ SCH ×4 (08:00→21:00)
[2017-09-28] MEDS: SODIUM CHLORIDE 0.9% FLUSH 10 ML FLUSH IV FLUSH SCH ×2 (09:00→22:36)
--- NOTE | 2017-09-28 10:01 | HHI.PR ---
Subjective Remarks Nursing denies any deterioration since last night except for red urine showing up through the catheter. Patient asking for tray of food. Mother notices the patient occasionally moaning and groaning. Objective Vital Signs Date Time Temp Pulse Resp B/P (MAP) Pulse Ox O2 Delivery O2 Flow Rate FiO2 09/28/17 06:00 87 09/28/17 04:00 98.2 86 20 131/73 (92) 94 09/28/17 04:00 86 09/28/17 02:00 88 09/28/17 00:00 98.4 81 17 118/64 (82) 95 09/28/17 00:00 81 09/27/17 22:00 89 09/27/17 21:14 95 Nasal Cannula 4.00 09/27/17 20:00 89 09/27/17 20:00 98.1 89 22 127/75 (92) 97 09/27/17 19:00 97 Nasal Cannula 4.00 09/27/17 18:00 83 09/27/17 16:00 90 09/27/17 16:00 98.4 90 20 117/66 (83) 98 09/27/17 14:00 74 09/27/17 12:00 81 09/27/17 12:00 98.0 75 16 108/53 (71) 97 09/27/17 10:00 88 I/O 09/27/17 09/27/17 09/27/17 09/28/17 09/28/17 09/28/17 07:00 15:00 23:00 07:00 15:00 23:00 Intake Total 500 ml 400 ml Output Total 450 ml 575 ml 1100 ml Balance -450 ml -75 ml -700 ml Intake Oral 400 ml 400 ml IV Total 100 ml Output Urine Total 450 ml 575 ml 1100 ml # Bowel Movements 1 0 Result Diagram: 09/27/17 0457 09/27/17 0457 Objective Remarks Lying in bed, awake, appears anxious and afraid, repetitively asking for tray Heart sounds are regular rate rhythm, 4 out of 6 ejection murmur A/P Assessment and Plan 37-year-old female admitted with Severe Sepsis with shock and organ failure related to 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 Etiology of diarrhea may be withdraw vs abx. C. Diff negative. Continue to monitor potassium levels and replace as needed. Gross hematuria - recheck UA RF worsening, continue IVFs, nephrology following, trend bmp in am Acute encephalopathy Narcotic Withdraw On methadone 10 mg daily Percocet 10/325 mg p.o. every 4 hourly as needed for pain/withdraw //Abdominal distention = 2 days s/p paracentesis w/ 1.4 L drained, likely 2/2 HF Severe sepsis with multiorgan failure Acute Renal Failure, cardiorenal syndrome Anion gap Diastolic CHF secondary to valvulopathy. Pulmonary hypertension Follow creatinine Nephrology following = 09/24 Dan out. Creatinine stabilized 3.8. Anion gap on labs 16. Check lactate and urine for ketones. Nephrology following. Fluid restrictions, afterload reduction. Appreciate health and wellness sales consultant assistance. Continue to monitor. 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 on ancef currently UTI -will defer to ID for abx choice Abdominal pain Hepatosplenomegaly Hep C noted on serology P.o. diet as tolerated Acute kidney injury = Improving. Continue to monitor. Hypokalemia monitor and replace as needed Vaginal discharge Negative STD evaluation Follow clinically Pancytopenia Thrombocytopenia Possible DIC (resolved) Improving Follow CBC = Platelet count improving. DVT Prophylaxis Bleed risk SCDs Discharge Planning Continues on IV antibiotics for endocarditis. Discharge Planning Discussed with mother, related that overall the main plan of treatment is medical management given that the patient is not a surgical candidate. Explained to her that the patient's encephalopathy/confusion is multifactorial at this point with ongoing infection, ICU environment, and being hospitalized in general. Bo Olvera MD Sep 28, 2017 10:01
[2017-09-28] MEDS: levETIRAcetam INJ 500 MG in SODIUM CHLORIDE 0.9% INJ 100 ML IV SCH ×2 (10:32→22:35)
[2017-09-28] MEDS: HEPARIN SODIUM - SQ 10,000 UNITS/ML VIAL SQ SCH ×2 (10:33→22:35)
[2017-09-28] MEDS: MUPIROCIN 2% OINT 1 APPLIC/GM SYR EACH NARE SCH ×2 (10:33→22:36)
[2017-09-28] MEDS: ceFAZolin 2 GM PREMIX 50 ML IV SCH ×2 (10:33→22:35)
[2017-09-28] MEDS: METOPROLOL TARTRATE 25 MG TAB PO SCH ×2 (10:34→22:36)
[2017-09-28] MEDS: MEGESTROL ACETATE 40 MG TAB PO SCH ×2 (10:34→22:36)
[2017-09-28] MEDS: CALCIUM ACETATE 667 MG CAP PO SCH ×3 (10:34→17:36)
[2017-09-28] MEDS: amLODIPine BESYLATE 5 MG TAB PO SCH (10:35)
[2017-09-28] MEDS: DOCUSATE SODIUM 50 MG/SENNA 8.6 MG TAB PO SCH ×2 (10:35→21:00)
[2017-09-28] MEDS: BUMETANIDE 1 MG TAB PO SCH ×2 (10:35→17:36)
[2017-09-28] MEDS: PANTOPRAZOLE SOD 40 MG DELAYED RELEASE TAB PO SCH (10:35)
[2017-09-28] MEDS: THIAMINE HCL 100 MG TAB PO SCH (10:35)
[2017-09-28] MEDS: SPIRONOLACTONE 25 MG TAB PO SCH ×2 (10:35→17:36)
--- NOTE | 2017-09-28 14:14 | HHI.IDPN ---
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 Patient also had another admission in July, and at that time her blood cultures grew methicillin sensitive staph aureus. She signed out AGAINST MEDICAL ADVICE again at that time. When she came in this time, her CBC showed pancytopenia. CT of the chest showed evidence of multiple pulmonary septic emboli. 2 blood cultures done are now showing staph aureus. She was also hypotensive, and also had an elevated creatinine. Her urine output has been low. CT of the head did not show any significant abnormality. CT of the abdomen and pelvis showed splenomegaly. Patient currently still lethargic, and moaning. She is complaining of pain throughout her whole body. She is on Celso-Synephrine. Infectious disease consultation has been requested to evaluate the patient. Notes reviewed Temps ok No further seizure BP ok UC with VRE Has warner placed 09/26 No GARCIA Her echo showed a large TV veg, with mod to severe TR and an AV veg with moderate AI Creatinine worsening, making urine Platelets stable Antibiotics Ancef Current Medications Medications (Trade) Dose Ordered Sig/Amy Route Start Time Stop Time Status Last Admin (NS Flush) 2 ml UNSCH PRN IV FLUSH 09/16/17 17:00 09/22/17 21:11 (NS Flush) 2 ml BID IV FLUSH 09/16/17 21:00 09/28/17 09:00 (Albuterol Neb) 2.5 mg Q2HR NEB PRN INH 09/16/17 17:00 ([facility] Nursing Information) 1 Q361D XX 09/16/17 17:00 09/16/17 20:22 (Chlorhexidine 2% Cloth) Taper DAILY@04 TOP 09/17/17 04:00 09/13/18 03:59 09/27/17 03:46 (Chlorhexidine 2% Cloth) 3 pack UNSCH PRN TOP 09/16/17 17:00 (Paula-Colace) 1 tab BID PO 09/16/17 21:00 09/28/17 10:35 (Milk Of Magnesia Liq) 30 ml Q12H PRN PO 09/16/17 17:00 09/19/17 11:19 (Senokot) 17.2 mg Q12H PRN PO 09/16/17 17:00 09/19/17 09:43 (Dulcolax Supp) 10 mg DAILY PRN RECTAL 09/16/17 17:00 09/19/17 11:20 (Lactulose Liq) 30 ml DAILY PRN PO 09/16/17 17:00 09/19/17 07:45 (Phenergan Inj) 25 mg Q6H PRN IM 09/16/17 17:00 09/21/17 05:29 (Percocet 10-325 Mg) 1 tab Q4H PRN PO 09/17/17 08:30 09/28/17 10:35 (Lopressor) 12.5 mg Q12HR PO 09/20/17 00:30 09/28/17 10:34 Cefazolin Sodium/ Dextrose 50 ml @ 100 mls/hr Q12H IV 09/24/17 10:00 09/28/17 10:33 (Norvasc) 10 mg DAILY PO 09/25/17 09:00 09/28/17 10:35 (Vitamin B1) 100 mg DAILY PO 09/25/17 09:00 09/28/17 10:35 (Phoslo) 1,334 mg TID PO 09/24/17 13:00 09/28/17 13:18 (Apresoline) 100 mg Q8HR PO 09/25/17 14:00 09/28/17 13:18 (Isordil) 10 mg Q8HR PO 09/25/17 14:00 09/28/17 13:18 (Megace) 40 mg Q12HR PO 09/25/17 10:30 09/28/17 10:34 (Aldactone) 25 mg BID@,18 PO 09/25/17 22:00 09/28/17 10:35 (Bumetanide) 1 mg BID@,18 PO 09/25/17 22:00 09/28/17 10:35 Levetriacetam 500 mg/Sodium Chloride 105 ml @ 420 mls/hr Q12HR IV 09/26/17 21:00 09/28/17 10:32 (D50w (Vial) Inj) 50 ml UNSCH PRN IV PUSH 09/26/17 09:30 (Glucagon Inj) 1 mg UNSCH PRN OTHER 09/26/17 09:30 (NovoLOG SUPPLEMENTAL SCALE) 1 ACHS SLIDING SCALE SQ 09/26/17 12:00 09/26/17 21:00 (Protonix) 40 mg DAILY PO 09/27/17 09:00 09/28/17 10:35 (Bactroban Nasal 2% Oint) 1 applic Taper BID EACH NARE 09/26/17 21:00 09/22/18 20:59 09/28/17 10:33 (Heparin Inj) 5,000 units Q12HR SQ 09/27/17 21:00 09/28/17 10:33 (Synthroid) 25 mcg DAILY@0600 PO 09/28/17 06:00 09/28/17 06:13 Albumin Human 100 ml @ 60 mls/hr Q6HR IV 09/27/17 18:00 09/28/17 11:23 Lines Line no evidence of infection Past Medical History Hepatitis C Tricuspid valve endocarditis Group A strep sepsis MSSA sepsis Known active IV drug use Allergies: Coded Allergies: No Known Allergies (Unverified Allergy, Unknown, 08/13/17) Objective . Vital Signs Date Time Temp Pulse Resp B/P (MAP) Pulse Ox O2 Delivery O2 Flow Rate FiO2 09/28/17 14:00 90 09/28/17 12:00 86 16 132/74 (93) 96 09/28/17 12:00 83 09/28/17 10:00 84 09/28/17 08:00 98.2 88 16 130/75 (93) 96 09/28/17 08:00 86 09/28/17 07:00 96 Nasal Cannula 4.00 09/28/17 06:00 87 09/28/17 04:00 98.2 86 20 131/73 (92) 94 09/28/17 04:00 86 09/28/17 02:00 88 09/28/17 00:00 98.4 81 17 118/64 (82) 95 09/28/17 00:00 81 09/27/17 22:00 89 09/27/17 21:14 95 Nasal Cannula 4.00 09/27/17 20:00 89 09/27/17 20:00 98.1 89 22 127/75 (92) 97 09/27/17 19:00 97 Nasal Cannula 4.00 09/27/17 18:00 83 09/27/17 16:00 90 09/27/17 16:00 98.4 90 20 117/66 (83) 98 . Laboratory Tests Test 09/27/17 04:57 White Blood Count 8.1 TH/MM3 Red Blood Count 2.96 MIL/MM3 Hemoglobin 8.3 GM/DL Hematocrit 24.4 % Mean Corpuscular Volume 82.4 FL Mean Corpuscular Hemoglobin 27.9 PG Mean Corpuscular Hemoglobin Concent 33.9 % Red Cell Distribution Width 18.9 % Platelet Count 116 TH/MM3 Mean Platelet Volume 9.6 FL Neutrophils (%) (Auto) 80.5 % Lymphocytes (%) (Auto) 13.8 % Monocytes (%) (Auto) 4.2 % Eosinophils (%) (Auto) 1.0 % Basophils (%) (Auto) 0.5 % Neutrophils # (Auto) 6.5 TH/MM3 Lymphocytes # (Auto) 1.1 TH/MM3 Monocytes # (Auto) 0.3 TH/MM3 Eosinophils # (Auto) 0.1 TH/MM3 Basophils # (Auto) 0.0 TH/MM3 CBC Comment AUTO DIFF Differential Comment AUTO DIFF CONFIRMED Platelet Estimate LOW Platelet Morphology Comment NORMAL Ovalocytes 1+ Keratocytes OCC Laboratory Tests Test 09/27/17 04:57 Blood Urea Nitrogen 61 MG/DL Creatinine 4.21 MG/DL Random Glucose 90 MG/DL Total Protein 6.6 GM/DL Albumin 2.6 GM/DL Calcium Level 8.8 MG/DL Phosphorus Level 6.9 MG/DL Magnesium Level 2.1 MG/DL Alkaline Phosphatase 78 U/L Aspartate Amino Transf (AST/SGOT) 15 U/L Alanine Aminotransferase (ALT/SGPT) LESS THAN 6 U/L Total Bilirubin 0.4 MG/DL Sodium Level 139 MEQ/L Potassium Level 4.1 MEQ/L Chloride Level 100 MEQ/L Carbon Dioxide Level 27.3 MEQ/L Anion Gap 12 MEQ/L Estimat Glomerular Filtration Rate 12 ML/MIN Free Thyroxine 1.43 NG/DL Free Triiodothyronine (T3) pg/dL 1.48 PG/ML Microbiology Date/Time Source Procedure Growth Status 09/25/17 16:44 Fluid Peritoneal Fluid Gram Stain - Final Complete 09/25/17 16:44 Fluid Peritoneal Fluid Body Fluid Culture - Final NO GROWTH IN 72 HRS.--AEROBICALLY OR ... Complete Imaging Last Impressions Chest X-Ray 09/16/17 1504 Signed Impressions: Service Date/Time: Saturday, September 16, 2017 15:28 - CONCLUSION: 1. Patchy bilateral lower lobe airspace disease, more prominent on the right. Findings are concerning for multilobar pneumonia or aspiration. Zenon Busch MD Head CT 09/16/17 0000 Signed Impressions: Service Date/Time: Saturday, September 16, 2017 17:56 - CONCLUSION: 1. No acute intracranial abnormality. 2. Left maxillary and sphenoid sinus mucosal disease. Zenon Busch MD Chest CT 09/16/17 0000 Signed Impressions: Service Date/Time: Saturday, September 16, 2017 18:04 - CONCLUSION: 1. Small bilateral pleural effusions with dense bilateral lower lobe airspace consolidation. 2. Numerous bilateral inflammatory pulmonary nodules including cavitary nodules in the apices bilaterally. Findings are consistent with septic emboli. Zenon Busch MD Abdomen/Pelvis CT 09/16/17 0000 Signed Impressions: Service Date/Time: Saturday, September 16, 2017 18:04 - CONCLUSION: 1. Limited examination due to paucity of peritoneal fat and patient's overlying arms. 2. Hepatosplenomegaly with small amount of ascites. 3. Small to moderate amount of colonic stool without evidence for bowel obstruction. Zenon Busch MD Physical Exam GENERAL: Awake and alert, not in distress. Up in recliner chair SKIN: Warm and dry. No generalized rash, no ecchymoses and no evidence of embolic lesions. HEAD: Atraumatic. Normocephalic. No temporal wasting, or tenderness. EYES: [place] conjunctiva. No petechia or hemorrhage. Pupils equal, round and reactive to light. Extraocular movements full and intact. No scleral icterus. No injection or drainage. EARS, NOSE AND THROAT: Nose without bleeding or purulent nasal discharge. No sinus tenderness. Very dry oral mucosa. NECK: Trachea midline. Supple, no meningeal signs CARDIOVASCULAR: Regular rate and rhythm. No murmurs, rubs or gallops heard RESPIRATORY: Clear to auscultation. Breath sounds equal bilaterally. No rales , wheezing or rhonchi. Decreased breath sounds at the bases ABDOMEN: Distended, with mild diffuse abdominal tenderness, tympanitic on percussion. Bowel sounds present and normoactive. : Warner cath in place. EXTREMITIES: No clubbing, cyanosis. Has improving bilateral pedal edema. Has wound L leg with some slough, no surrounding cellulitis NEUROLOGICAL: Grossly non-focal PSYCHIATRIC: Cooperative LINE: No evidence of infection Assessment & Plan Remarks IMPRESSION Sepsis with shock, due to endocarditis - BP stable - has MOSF - previously had GAS, then MSSA - now MSSA MSSA endocarditis - echo with large TV veg and now also with AV veg Has pulmonary septic emboli Has UTI Renal insufficiency, worsening Pancytopenia, improving - thrombocytopenia worse again Known very poor compliance to medical Rx DIC, better New SZ - ?emboli to brain, ?mycotic aneurysm - MRI brain negative (+) UC with VRE RECOMMENDATION Continue Ancef Repeat UA and C/S Zyvox - follow CBC Progression of infection due to poor compliance to medical treatment Monitor progress She will need a course of IV antibiotics for her endocarditis Patient not surgical candidate per CTS Milana Harp MD Sep 28, 2017 14:14
[2017-09-28] MEDS: LINEZOLID 600 MG TAB PO SCH ×2 (15:15→22:36)
[2017-09-28 16:02] LABS: BACTERIA, URINE MOD /hpf; BILIRUBIN, URINE NEG (NEG); BLOOD, URINE LARGE (NEG); GLUCOSE,URINE NEG (NEG); HYALINE CAST, URINE 63 /lpf (RARE); KETONE, URINE TRACE mg/dL (NEG); NITRITE,URINE NEG (NEG); SQUAMOUS EPITHELIAL CELL URINE 4 /hpf (0-5); URINE LEUKOCYTE ESTERASE LARGE (NEG); WHITE BLOOD CELL CLUMPS FEW
[2017-09-28 16:10] LABS: URINE COLOR DARK-YELLOW (YELLW/STRAW)
--- NOTE | 2017-09-28 17:36 | HHI.NPPN ---
Subjective History of Present Illness Patient is a 37-year-old with IVDA and endocarditis with acute renal failure Additional Remarks Remains tired awake Review of Systems General Constitutional: Fatigue Musculoskeletal MS: Pain/Stiffness Objective Data Data Vital Signs Date Time Temp Pulse Resp B/P (MAP) Pulse Ox O2 Delivery O2 Flow Rate FiO2 09/28/17 16:06 95 Nasal Cannula 4.00 09/28/17 16:00 96 09/28/17 14:00 90 09/28/17 12:00 86 16 132/74 (93) 96 09/28/17 12:00 83 09/28/17 10:00 84 09/28/17 08:00 98.2 88 16 130/75 (93) 96 09/28/17 08:00 86 09/28/17 07:00 96 Nasal Cannula 4.00 09/28/17 06:00 87 09/28/17 04:00 98.2 86 20 131/73 (92) 94 09/28/17 04:00 86 09/28/17 02:00 88 09/28/17 00:00 98.4 81 17 118/64 (82) 95 09/28/17 00:00 81 09/27/17 22:00 89 09/27/17 21:14 95 Nasal Cannula 4.00 09/27/17 20:00 89 09/27/17 20:00 98.1 89 22 127/75 (92) 97 09/27/17 19:00 97 Nasal Cannula 4.00 09/27/17 18:00 83 -: 09/27/17 0457 09/27/17 0457 Microbiology 09/28/17 Urine Culture, Received Pending Physical Exam General Appearance: Pale Neck Neck Exam: Neck Supple Pulmonary Resp Exam: Decreased Bases Cardiology CV Exam: Regular Gastrointestinal/Abdomen GI Exam: Soft, Non-Tender, Distended, Bowel Sounds Hypoactive Integumentary Skin Exam: Ulcer(s) Extremeties Extremities Exam: Moderate Edema Neurologic Neuro Exam: Alert, Awake, Oriented Assessment/Plan Problem List: (1) Acute renal failure ICD Codes: N17.9 - Acute kidney failure, unspecified Plan: This is likely due to underlying endocarditis and severe infection Continue to monitor urine output Patient is dehydrated/ATN Albumin 25 g IV every 6 hourly UOP 1.6 L no new labs hematuria pos Cr 4.2 on Aldactone/bumex has diarrheas C diff negative Cr again high sz follow I/O Dan catheter PhosLo 667 mg 2 TID with meals endocarditis AV Vegetation TV Big mobile Vegetation ultrasound abdomen small amount ascites kidney size normal he has hepatosplenomegaly possible cirrhosis Follow BMP Paracentesis 2 days ago 1.4 L (2) Endocarditis ICD Codes: I38 - Endocarditis, valve unspecified Status: Acute Plan: Due to IVDA (3) Severe sepsis ICD Codes: A41.9 - Sepsis, unspecified organism; R65.20 - Severe sepsis without septic shock Status: Acute Plan: Staph aureus septicemia Azalea Gillette MD Sep 28, 2017 17:36
[2017-09-29] VITALS (13 sets, daily range): BP systolic 118–132; BP diastolic 68–76; PULSE 83–99; RESP 16–22; TEMP 97.8–98.3; O2SAT 93–95
[2017-09-29] MEDS: ALBUMIN 25% INJ 100 ML IV SCH ×4 (00:10→17:47)
[2017-09-29] MEDS: CHLORHEXIDINE GLUCONATE 2 % 1 PACK (2 CLOTHS) TOP SCH (04:00)
[2017-09-29 04:55] LABS: AUTOMATED NEUTROPHIL # 3.5 TH/MM3 (1.8-7.7); BASOPHIL # 0.1 TH/MM3 (0-0.2); EOSINOPHIL # 0.1 TH/MM3 (0-0.4); EOSINOPHIL % 1.8 % (0.0-4.0); HEMATOCRIT 22.8 % (35.0-46.0); HEMOGLOBIN 7.7 GM/DL (11.6-15.3); LYMPHOCYTE # 1.3 TH/MM3 (1.0-4.8); MEAN CELL VOLUME 83.5 FL (80.0-100.0); MEAN CORPUSCULAR HGB CONC 33.6 % (32.0-36.0); MEAN PLATELET VOLUME 9.3 FL (7.0-11.0); MONOCYTE # 0.4 TH/MM3 (0-0.9); NEUT % 65.2 % (16.0-70.0); PLATELET COUNT 119 TH/MM3 (150-450); RED BLOOD COUNT 2.73 MIL/MM3 (4.00-5.30); RED CELL DISTRIBUTION WIDTH 19.7 % (11.6-17.2); WHITE BLOOD COUNT 5.4 TH/MM3 (4.0-11.0)
[2017-09-29 05:31] LABS: ALBUMIN 3.6 GM/DL (3.4-5.0); AST (GOT) 10 U/L (15-37); BICARBONATE 24.4 MEQ/L (21.0-32.0); BLOOD UREA NITROGEN 64 MG/DL (7-18); CALCIUM 9.1 MG/DL (8.5-10.1); CHLORIDE 105 MEQ/L (98-107); CREATININE 4.43 MG/DL (0.50-1.00); GLOMERULAR FILTRATION RATE 11 ML/MIN (>89); GLUCOSE,RANDOM 102 MG/DL (74-106); SODIUM (NA) 143 MEQ/L (136-145)
[2017-09-29 05:35] LABS: ALKALINE PHOSPHATASE 72 U/L (45-117); ALT (GPT) LESS THAN 6 U/L (10-53); PHOSPHORUS 4.9 MG/DL (2.5-4.9); TOTAL BILIRUBIN ADULT 0.5 MG/DL (0.2-1.0); TOTAL PROTEIN 7.3 GM/DL (6.4-8.2)
[2017-09-29] MEDS: ISOSORBIDE DINITRATE 10 MG TAB PO SCH ×3 (06:00→21:25)
[2017-09-29] MEDS: hydrALAZINE HCL 100 MG TAB PO SCH ×3 (06:21→21:21)
[2017-09-29] MEDS: LEVOTHYROXINE SODIUM 25 MCG TAB PO SCH (06:21)
[2017-09-29] MEDS: oxyCODONE/ACETAMINOPHEN 10 MG/325 MG TAB PO PRN ×4 (06:21→21:21)
[2017-09-29] MEDS: INSULIN ASPART SUPPLEMENTAL SCALE SQ SCH ×4 (08:55→21:50)
[2017-09-29] MEDS: HEPARIN SODIUM - SQ 10,000 UNITS/ML VIAL SQ SCH ×2 (09:01→21:20)
[2017-09-29] MEDS: levETIRAcetam INJ 500 MG in SODIUM CHLORIDE 0.9% INJ 100 ML IV SCH ×2 (09:01→21:20)
[2017-09-29] MEDS: MUPIROCIN 2% OINT 1 APPLIC/GM SYR EACH NARE SCH ×2 (09:02→21:19)
[2017-09-29] MEDS: ceFAZolin 2 GM PREMIX 50 ML IV SCH ×2 (09:02→21:22)
[2017-09-29] MEDS: THIAMINE HCL 100 MG TAB PO SCH (09:02)
[2017-09-29] MEDS: amLODIPine BESYLATE 5 MG TAB PO SCH (09:02)
[2017-09-29] MEDS: DOCUSATE SODIUM 50 MG/SENNA 8.6 MG TAB PO SCH ×2 (09:02→21:20)
[2017-09-29] MEDS: CALCIUM ACETATE 667 MG CAP PO SCH ×3 (09:02→17:48)
[2017-09-29] MEDS: LINEZOLID 600 MG TAB PO SCH ×2 (09:02→21:20)
[2017-09-29] MEDS: SPIRONOLACTONE 25 MG TAB PO SCH ×2 (09:02→17:48)
[2017-09-29] MEDS: BUMETANIDE 1 MG TAB PO SCH ×2 (09:02→17:51)
[2017-09-29] MEDS: PANTOPRAZOLE SOD 40 MG DELAYED RELEASE TAB PO SCH (09:02)
[2017-09-29] MEDS: METOPROLOL TARTRATE 25 MG TAB PO SCH ×2 (09:03→21:20)
[2017-09-29] MEDS: MEGESTROL ACETATE 40 MG TAB PO SCH ×2 (09:03→21:25)
[2017-09-29] MEDS: SODIUM CHLORIDE 0.9% FLUSH 10 ML FLUSH IV FLUSH SCH ×2 (09:04→21:20)
--- NOTE | 2017-09-29 09:46 | HHI.PR ---
Subjective Remarks Nursing denies any deterioration since last night. Reports that the pink tinge is less intense today in the urine. Patient herself appears more alert today. Objective Vital Signs Date Time Temp Pulse Resp B/P (MAP) Pulse Ox O2 Delivery O2 Flow Rate FiO2 09/29/17 08:30 94 Nasal Cannula 3.00 09/29/17 07:00 93 Nasal Cannula 4.00 09/29/17 06:00 86 09/29/17 04:00 86 09/29/17 04:00 97.8 86 19 125/76 (92) 93 09/29/17 02:00 86 09/29/17 00:00 89 09/29/17 00:00 98.3 96 21 132/75 (94) 94 09/28/17 22:00 100 09/28/17 20:18 94 Nasal Cannula 3.00 09/28/17 20:00 98 09/28/17 20:00 98.6 107 23 129/64 (85) 94 09/28/17 19:00 93 Nasal Cannula 4.00 09/28/17 18:00 83 09/28/17 16:06 95 Nasal Cannula 4.00 09/28/17 16:00 96 09/28/17 16:00 98.8 92 20 146/79 (101) 95 09/28/17 14:00 90 09/28/17 12:00 86 16 132/74 (93) 96 09/28/17 12:00 83 09/28/17 10:00 84 I/O 09/28/17 09/28/17 09/28/17 09/29/17 09/29/17 09/29/17 06:59 14:59 22:59 06:59 14:59 22:59 Intake Total 400 ml 300 ml 800 ml Output Total 1100 ml 650 ml 850 ml Balance -700 ml -350 ml -50 ml Intake Oral 400 ml 300 ml 800 ml Output Urine Total 1100 ml 650 ml 850 ml # Bowel Movements 0 0 0 Result Diagram: 09/29/1735609/29/17356 Objective Remarks Lying in bed, awake, appears much calmer today Oriented 3 Heart sounds are regular rate rhythm, 4 out of 6 ejection murmur Has Dan catheter A/P Assessment and Plan 37-year-old female admitted with Severe Sepsis with shock and organ failure related to 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 Etiology of diarrhea may be withdraw vs abx. C. Diff negative. Continue to monitor potassium levels and replace as needed. Gross hematuria and microscopic pyuria -urine culture pending Acute on chronic kidney injury - renal function continues to worsen, check BMP in a.m., receiving albumin per nephrology Acute encephalopathy Narcotic Withdraw On methadone 10 mg daily Percocet 10/325 mg p.o. every 4 hourly as needed for pain/withdraw //Abdominal distention = 2 days s/p paracentesis w/ 1.4 L drained, likely 2/2 HF Severe sepsis with multiorgan failure Acute Renal Failure, cardiorenal syndrome Anion gap Diastolic CHF secondary to valvulopathy. 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 on ancef and linezolid currently suspected UTI -will defer to ID for abx choice Abdominal pain Hepatosplenomegaly Hep C noted on serology P.o. diet as tolerated Acute kidney injury = Improving. Continue to monitor. Hypokalemia monitor and replace as needed Vaginal discharge Negative STD evaluation Follow clinically Pancytopenia Thrombocytopenia Possible DIC (resolved) Improving Follow CBC = Platelet count improving. DVT Prophylaxis Bleed risk SCDs Discharge Planning Continues on IV antibiotics for endocarditis and suspected UTI. Discharge Planning will consider transferring to med/surg over next 24 hrs. Bo Olvera MD Sep 29, 2017 09:46
--- NOTE | 2017-09-29 11:12 | HHI.NPPN ---
Subjective History of Present Illness Patient is a 37-year-old with IVDA and endocarditis with acute renal failure Additional Remarks Agitated, wants to go out for "fresh air". Non oliguric. Not on pressors. Not on IVF. Review of Systems General Constitutional: Fatigue Musculoskeletal MS: Pain/Stiffness Objective Data Data Vital Signs Date Time Temp Pulse Resp B/P (MAP) Pulse Ox O2 Delivery O2 Flow Rate FiO2 09/29/17 08:30 94 Nasal Cannula 3.00 09/29/17 08:00 95 09/29/17 07:00 93 Nasal Cannula 4.00 09/29/17 06:00 86 09/29/17 04:00 86 09/29/17 04:00 97.8 86 19 125/76 (92) 93 09/29/17 02:00 86 09/29/17 00:00 89 09/29/17 00:00 98.3 96 21 132/75 (94) 94 09/28/17 22:00 100 09/28/17 20:18 94 Nasal Cannula 3.00 09/28/17 20:00 98 09/28/17 20:00 98.6 107 23 129/64 (85) 94 09/28/17 19:00 93 Nasal Cannula 4.00 09/28/17 18:00 83 09/28/17 16:06 95 Nasal Cannula 4.00 09/28/17 16:00 96 09/28/17 16:00 98.8 92 20 146/79 (101) 95 09/28/17 14:00 90 09/28/17 12:00 86 16 132/74 (93) 96 09/28/17 12:00 83 -: 09/29/17 0357 09/29/17 0357 Microbiology 09/28/17 Urine Culture, Received Pending Physical Exam General Appearance: Pale Neck Neck Exam: Neck Supple Pulmonary Resp Exam: Decreased Bases Cardiology CV Exam: Regular Gastrointestinal/Abdomen GI Exam: Soft, Non-Tender, Distended, Bowel Sounds Hypoactive Integumentary Skin Exam: Ulcer(s) Extremeties Extremities Exam: Moderate Edema Neurologic Neuro Exam: Alert, Awake, Oriented Assessment/Plan Problem List: (1) Acute renal failure ICD Codes: N17.9 - Acute kidney failure, unspecified Plan: This is likely due to underlying endocarditis and severe infection, post infectious GN. Obtain complement levels. 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 Non oliguric, creatinine is worse. Very poor prognosis. on Aldactone/bumex Monitor for electrolytes abnormalities. (2) Endocarditis ICD Codes: I38 - Endocarditis, valve unspecified Status: Acute Plan: Due to IVDA Vegetation on Tricuspid valve and also Aortic valve. Not a candidate for surgery per CTS. ID following. (3) Severe sepsis ICD Codes: A41.9 - Sepsis, unspecified organism; R65.20 - Severe sepsis without septic shock Status: Acute Plan: Staph aureus septicemia Travis Valdez MD Sep 29, 2017 11:12
[2017-09-29] MEDS ORDERED: NICOTINE 7 MG/24 HR PATCH T-DERMAL ONE (13:00)
[2017-09-30] VITALS (14 sets, daily range): BP systolic 117–135; BP diastolic 67–80; PULSE 83–106; RESP 17–22; TEMP 96.8–98.6; O2SAT 94–100
[2017-09-30] MEDS: ALBUMIN 25% INJ 100 ML IV SCH ×4 (00:11→18:28)
[2017-09-30] MEDS: CHLORHEXIDINE GLUCONATE 2 % 1 PACK (2 CLOTHS) TOP SCH (03:35)
[2017-09-30 04:45] LABS: HEMATOCRIT 22.9 % (35.0-46.0); HEMOGLOBIN 7.6 GM/DL (11.6-15.3); MEAN CELL VOLUME 84.1 FL (80.0-100.0); MEAN CORPUSCULAR HGB CONC 33.3 % (32.0-36.0); MEAN PLATELET VOLUME 8.5 FL (7.0-11.0); PLATELET COUNT 129 TH/MM3 (150-450); RED BLOOD COUNT 2.72 MIL/MM3 (4.00-5.30); RED CELL DISTRIBUTION WIDTH 19.9 % (11.6-17.2); WHITE BLOOD COUNT 6.5 TH/MM3 (4.0-11.0)
[2017-09-30 05:13] LABS: BICARBONATE 24.5 MEQ/L (21.0-32.0); CALCIUM 9.3 MG/DL (8.5-10.1); CREATININE 4.12 MG/DL (0.50-1.00)
[2017-09-30] MEDS: LEVOTHYROXINE SODIUM 25 MCG TAB PO SCH (05:13)
[2017-09-30] MEDS: oxyCODONE/ACETAMINOPHEN 10 MG/325 MG TAB PO PRN ×4 (05:13→21:08)
[2017-09-30] MEDS: ISOSORBIDE DINITRATE 10 MG TAB PO SCH ×3 (05:14→21:27)
[2017-09-30] MEDS: hydrALAZINE HCL 100 MG TAB PO SCH ×3 (05:14→21:11)
[2017-09-30] MEDS: INSULIN ASPART SUPPLEMENTAL SCALE SQ SCH ×4 (08:00→21:00)
[2017-09-30] MEDS: MEGESTROL ACETATE 40 MG TAB PO SCH ×3 (09:00→21:11)
[2017-09-30] MEDS: REMOVE OLD PATCH T-DERMAL SCH (09:00)
[2017-09-30] MEDS: MUPIROCIN 2% OINT 1 APPLIC/GM SYR EACH NARE SCH ×3 (09:00→21:13)
--- NOTE | 2017-09-30 10:20 | HHI.NPPN ---
Subjective History of Present Illness Patient is a 37-year-old with IVDA and endocarditis with acute renal failure Additional Remarks Her clinical condition is about the same. Some improvement in renal function. Review of Systems General Constitutional: Fatigue Musculoskeletal MS: Pain/Stiffness Objective Data Data Vital Signs Date Time Temp Pulse Resp B/P (MAP) Pulse Ox O2 Delivery O2 Flow Rate FiO2 09/30/17 08:11 94 Nasal Cannula 3.00 09/30/17 06:25 96.8 88 20 132/80 (97) 100 09/30/17 06:00 88 09/30/17 04:00 88 09/30/17 02:00 84 09/30/17 00:00 83 18 125/68 (87) 95 09/30/17 00:00 83 09/29/17 22:00 94 09/29/17 20:00 88 09/29/17 20:00 97.9 88 18 132/75 (94) 95 09/29/17 19:00 95 Nasal Cannula 4.00 09/29/17 18:00 87 09/29/17 16:00 84 09/29/17 16:00 99 16 129/75 (93) 94 09/29/17 14:00 83 09/29/17 12:00 84 09/29/17 12:00 97.8 94 22 127/75 (92) 93 -: 09/30/17 0434 09/30/17 0434 Physical Exam General Appearance: No Acute Distress, Pale, Anxious Neck Neck Exam: Neck Supple Pulmonary Resp Exam: Decreased Bases Cardiology CV Exam: Regular Gastrointestinal/Abdomen GI Exam: Soft, Non-Tender, Distended, Bowel Sounds Hypoactive Integumentary Skin Exam: Ulcer(s) Extremeties Extremities Exam: Moderate Edema Neurologic Neuro Exam: Alert, Awake, Oriented Assessment/Plan Problem List: (1) Acute renal failure ICD Codes: N17.9 - Acute kidney failure, unspecified Plan: This is likely due to underlying endocarditis and severe infection, post infectious GN. Obtain complement levels. 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 Non oliguric, renal function is slightly better. However, her prognosis is very poor. on Aldactone/bumex Monitor for electrolytes abnormalities. (2) Endocarditis ICD Codes: I38 - Endocarditis, valve unspecified Status: Acute Plan: Due to IVDA Vegetation on Tricuspid valve and also Aortic valve. Not a candidate for surgery per CTS. ID following. (3) Severe sepsis ICD Codes: A41.9 - Sepsis, unspecified organism; R65.20 - Severe sepsis without septic shock Status: Acute Plan: Staph aureus septicemia Travis Valdez MD Sep 30, 2017 10:19
[2017-09-30] MEDS: ceFAZolin 2 GM PREMIX 50 ML IV SCH ×2 (10:54→21:12)
[2017-09-30] MEDS: levETIRAcetam INJ 500 MG in SODIUM CHLORIDE 0.9% INJ 100 ML IV SCH ×2 (10:55→21:08)
[2017-09-30] MEDS: SODIUM CHLORIDE 0.9% FLUSH 10 ML FLUSH IV FLUSH SCH ×2 (10:56→21:09)
[2017-09-30] MEDS: PANTOPRAZOLE SOD 40 MG DELAYED RELEASE TAB PO SCH (10:57)
[2017-09-30] MEDS: SPIRONOLACTONE 25 MG TAB PO SCH ×2 (10:57→18:28)
[2017-09-30] MEDS: METOPROLOL TARTRATE 25 MG TAB PO SCH ×2 (10:57→21:11)
[2017-09-30] MEDS: BUMETANIDE 1 MG TAB PO SCH ×2 (10:58→18:28)
[2017-09-30] MEDS: LINEZOLID 600 MG TAB PO SCH ×2 (10:58→21:11)
[2017-09-30] MEDS: CALCIUM ACETATE 667 MG CAP PO SCH ×3 (10:58→18:28)
[2017-09-30] MEDS: DOCUSATE SODIUM 50 MG/SENNA 8.6 MG TAB PO SCH ×2 (10:58→21:11)
[2017-09-30] MEDS: amLODIPine BESYLATE 5 MG TAB PO SCH (10:58)
[2017-09-30] MEDS: THIAMINE HCL 100 MG TAB PO SCH (10:59)
[2017-09-30] MEDS: HEPARIN SODIUM - SQ 10,000 UNITS/ML VIAL SQ SCH ×2 (11:00→21:12)
[2017-09-30 11:05] LABS: COMPLEMENT C4 14 MG/DL (10-40)
[2017-09-30] MEDS: NICOTINE 7 MG/24 HR PATCH T-DERMAL SCH (11:42)
--- NOTE | 2017-09-30 14:11 | HHI.PR ---
Subjective Remarks Nursing denies any deterioration since last night. Hematuria still present. Patient herself says she feels tired. Objective Vital Signs Date Time Temp Pulse Resp B/P (MAP) Pulse Ox O2 Delivery O2 Flow Rate FiO2 09/30/17 08:11 94 Nasal Cannula 3.00 09/30/17 08:00 97.7 86 17 135/70 (91) 94 09/30/17 07:00 94 Nasal Cannula 4.00 09/30/17 06:25 96.8 88 20 132/80 (97) 100 09/30/17 06:00 88 09/30/17 04:00 88 09/30/17 02:00 84 09/30/17 00:00 83 18 125/68 (87) 95 09/30/17 00:00 83 09/29/17 22:00 94 09/29/17 20:00 88 09/29/17 20:00 97.9 88 18 132/75 (94) 95 09/29/17 19:00 95 Nasal Cannula 4.00 09/29/17 18:00 87 09/29/17 16:00 84 09/29/17 16:00 99 16 129/75 (93) 94 I/O 09/29/17 09/29/17 09/29/17 09/30/17 09/30/17 09/30/17 07:00 15:00 23:00 07:00 15:00 23:00 Intake Total 800 ml 705 ml 680 ml 870 ml Output Total 850 ml 900 ml 825 ml Balance -50 ml -195 ml -145 ml 870 ml Intake Oral 800 ml 550 ml 480 ml 600 ml IV Total 155 ml 200 ml 270 ml Output Urine Total 850 ml 900 ml 825 ml # Bowel Movements 0 0 0 Result Diagram: 09/30/17 0434 09/30/17 0434 Objective Remarks sleeping, awoken and moaning, says she doesn't to "leave" Oriented 3 Heart sounds are regular rate rhythm, 4 out of 6 ejection murmur Has Dan catheter with still red urine A/P Assessment and Plan 37-year-old female admitted with Severe Sepsis with shock and organ failure related to 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 Etiology of diarrhea may be withdraw vs abx. C. Diff negative. Continue to monitor potassium levels and replace as needed. Gross hematuria and microscopic pyuria - UC is negative. Could be 2/2 catheter vs other etiologies, will obtain noncontrast CT abdomen, discussed with nephrology, hematuria could be related to postinfectious glomerulonephritis ( strep versus hep C) Acute on chronic kidney injury -renal function seems to be plateauing with a creatinine right around 4.1-4.3 Acute encephalopathy Narcotic Withdraw On methadone 10 mg daily Percocet 10/325 mg p.o. every 4 hourly as needed for pain/withdraw //Abdominal distention = 2 days s/p paracentesis w/ 1.4 L drained, likely 2/2 HF Severe sepsis with multiorgan failure Acute Renal Failure, cardiorenal syndrome Anion gap Diastolic CHF secondary to valvulopathy. 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 on ancef and linezolid currently Abdominal pain Hepatosplenomegaly Hep C noted on serology P.o. diet as tolerated Acute kidney injury = Improving. Continue to monitor. Hypokalemia monitor and replace as needed Vaginal discharge Negative STD evaluation Follow clinically Pancytopenia Thrombocytopenia Possible DIC (resolved) Improving Follow CBC = Platelet count improving. DVT Prophylaxis Bleed risk SCDs Discharge Planning Continues on IV antibiotics for endocarditis Discharge Planning order placed for med/surg transfer Bo Olvera MD Sep 30, 2017 14:11
[2017-09-30] MEDS ORDERED: DIATRIZOATE MEGLUM/DIATRIZOATE SOD 9 ML CUP PO ONE (14:30)
--- NOTE | 2017-09-30 22:22 | RADRPT ---
EXAM DATE: 09/30/2017 10:15 PM EDT AGE/SEX: 37 years / Female INDICATIONS: Hematuria. Abdominal pain. CLINICAL DATA: This is the patient's initial encounter. Patient reports that signs and symptoms have been present for 1 day and indicates a pain score of 7/10. MEDICAL/SURGICAL HISTORY: Hepatitis C. HIV. Pancreatitis. Seizures. Pulmonary embolism. No ne. RADIATION DOSE: 7.80 CTDI (mGy) ; Patient motion COMPARISON: [facility] [place]OM[place] & [place]ELVIS W/O CONTRAST, 09/16/2017. . TECHNIQUE: Multiple contiguous axial images were obtained through the abdomen. Images were obtained using multiple row detector helical technique. Using dose reduction techniques, radiation dose was ke pt as low as reasonably achievable to obtain optimal diagnostic quality images. FINDINGS: Lower Lungs: The pleural effusions have increased in volume compared to the previous examination. Bib asilar alveolar consolidations are also noted consistent with compressive atelectasis or pneumonia. C linical correlation is recommended. Liver: The liver is enlarged. The liver has a homogeneous density without space-occupying lesion. The re is no dilation of the biliary tree. Spleen: Spleen is enlarged. Pancreas: Unremarkable without mass or calcification. Kidneys: Normal in size and shape. No evidence of mass or hydronephrosis. Adrenal Glands: There is a stable calcified right adrenal gland. The left adrenal gland is stable. Aorta: The aorta and proximal iliac vessels are grossly unremarkable without aneurysmal dilation. Bowel/Mesentery: There has been interval increase in the ascites throughout the abdomen. Abdominal Wall: Extensive anasarca is noted. Retroperitoneum: No evidence of adenopathy in the retrocrural, para-aortic, or deep pelvic regions. Bladder: A Dan catheter is noted within the urinary bladder which is nondistended. Reproductive Organs: No abnormal masses or calcifications seen. Inguinal: The inguinal region is unremarkable without evidence of adenopathy. Bony Structures: Unremarkable. CONCLUSION: 1. No acute obstructive uropathy. 2. Interval increased ascites and new diffuse anasarca. 3. Increased bilateral pleural effusions with adjacent alveolar consolidations. 4. Stable hepatosplenomegaly. 5. Stable calcified right adrenal gland. Electronically signed by: Edinson Nance MD 09/30/2017 10:21 PM EDT
[2017-10-01] VITALS (14 sets, daily range): BP systolic 119–144; BP diastolic 56–94; PULSE 92–112; RESP 20–26; TEMP 97.8–99.1; O2SAT 90–100
[2017-10-01] MEDS: ALBUMIN 25% INJ 100 ML IV SCH ×4 (00:56→17:56)
[2017-10-01] MEDS: SODIUM CHLORIDE 0.9% FLUSH 10 ML FLUSH IV FLUSH PRN (00:56)
[2017-10-01] MEDS: oxyCODONE/ACETAMINOPHEN 10 MG/325 MG TAB PO PRN ×5 (00:56→22:31)
[2017-10-01] MEDS: CHLORHEXIDINE GLUCONATE 2 % 1 PACK (2 CLOTHS) TOP SCH (02:27)
[2017-10-01] MEDS: hydrALAZINE HCL 100 MG TAB PO SCH ×3 (05:54→22:30)
[2017-10-01] MEDS: LEVOTHYROXINE SODIUM 25 MCG TAB PO SCH (05:54)
[2017-10-01] MEDS: ISOSORBIDE DINITRATE 10 MG TAB PO SCH ×3 (05:57→22:33)
[2017-10-01 06:55] LABS: HEMATOCRIT 21.9 % (35.0-46.0); HEMOGLOBIN 7.3 GM/DL (11.6-15.3); MEAN CELL VOLUME 84.4 FL (80.0-100.0); MEAN CORPUSCULAR HEMOGLOBIN 28.2 PG (27.0-34.0); MEAN CORPUSCULAR HGB CONC 33.4 % (32.0-36.0); MEAN PLATELET VOLUME 9.2 FL (7.0-11.0); PLATELET COUNT 124 TH/MM3 (150-450); RED BLOOD COUNT 2.59 MIL/MM3 (4.00-5.30); RED CELL DISTRIBUTION WIDTH 20.6 % (11.6-17.2); WHITE BLOOD COUNT 5.6 TH/MM3 (4.0-11.0)
[2017-10-01 07:00] LABS: AUTOMATED NEUTROPHIL # 3.8 TH/MM3 (1.8-7.7); BASOPHIL # 0.1 TH/MM3 (0-0.2); BASOPHIL % 1.3 % (0.0-2.0); EOSINOPHIL # 0.1 TH/MM3 (0-0.4); EOSINOPHIL % 1.4 % (0.0-4.0); HEMATOCRIT 22.7 % (35.0-46.0); HEMOGLOBIN 7.5 GM/DL (11.6-15.3); LYMPH % 23.7 % (9.0-44.0); LYMPHOCYTE # 1.3 TH/MM3 (1.0-4.8); MEAN CELL VOLUME 84.9 FL (80.0-100.0); MEAN CORPUSCULAR HEMOGLOBIN 28.1 PG (27.0-34.0); MEAN PLATELET VOLUME 9.2 FL (7.0-11.0); MONO % 5.9 % (0.0-8.0); MONOCYTE # 0.3 TH/MM3 (0-0.9); NEUT % 67.7 % (16.0-70.0); PLATELET COUNT 127 TH/MM3 (150-450); RED BLOOD COUNT 2.67 MIL/MM3 (4.00-5.30)
[2017-10-01 07:03] LABS: WHITE BLOOD COUNT 5.6 TH/MM3 (4.0-11.0)
[2017-10-01] MEDS: INSULIN ASPART SUPPLEMENTAL SCALE SQ SCH ×4 (08:00→21:00)
[2017-10-01] MEDS: CALCIUM ACETATE 667 MG CAP PO SCH ×3 (09:14→17:57)
[2017-10-01] MEDS: DOCUSATE SODIUM 50 MG/SENNA 8.6 MG TAB PO SCH ×2 (09:14→22:30)
[2017-10-01] MEDS: SPIRONOLACTONE 25 MG TAB PO SCH ×2 (09:14→17:56)
[2017-10-01] MEDS: amLODIPine BESYLATE 5 MG TAB PO SCH (09:14)
[2017-10-01] MEDS: MEGESTROL ACETATE 40 MG TAB PO SCH ×2 (09:14→22:30)
[2017-10-01] MEDS: BUMETANIDE 1 MG TAB PO SCH ×2 (09:14→17:56)
[2017-10-01] MEDS: LINEZOLID 600 MG TAB PO SCH ×2 (09:15→22:30)
[2017-10-01] MEDS: METOPROLOL TARTRATE 25 MG TAB PO SCH ×2 (09:15→22:28)
[2017-10-01] MEDS: NICOTINE 7 MG/24 HR PATCH T-DERMAL SCH (09:15)
[2017-10-01] MEDS: REMOVE OLD PATCH T-DERMAL SCH (09:15)
[2017-10-01] MEDS: HEPARIN SODIUM - SQ 10,000 UNITS/ML VIAL SQ SCH ×2 (09:16→22:32)
[2017-10-01] MEDS: THIAMINE HCL 100 MG TAB PO SCH (09:22)
[2017-10-01] MEDS: PANTOPRAZOLE SOD 40 MG DELAYED RELEASE TAB PO SCH (09:22)
[2017-10-01] MEDS: ceFAZolin 2 GM PREMIX 50 ML IV SCH ×2 (09:23→22:30)
[2017-10-01] MEDS: SODIUM CHLORIDE 0.9% FLUSH 10 ML FLUSH IV FLUSH SCH ×2 (09:23→22:31)
[2017-10-01] MEDS: MUPIROCIN 2% OINT 1 APPLIC/GM SYR EACH NARE SCH ×2 (09:23→21:00)
[2017-10-01] MEDS: levETIRAcetam INJ 500 MG in SODIUM CHLORIDE 0.9% INJ 100 ML IV SCH ×2 (09:23→22:29)
--- NOTE | 2017-10-01 11:49 | HHI.PR ---
Subjective Remarks Nursing denies any deterioration since last night. Hematuria still present today. pt saying her back hurts, was just transferred to a different floor. Objective Vital Signs Date Time Temp Pulse Resp B/P (MAP) Pulse Ox O2 Delivery O2 Flow Rate FiO2 10/01/17 10:00 99 10/01/17 08:00 98.2 94 26 130/72 (91) 96 10/01/17 08:00 95 Nasal Cannula 4.00 10/01/17 08:00 97 10/01/17 07:58 90 Nasal Cannula 3.00 10/01/17 06:00 100 10/01/17 04:00 98.6 108 26 143/56 (85) 100 10/01/17 04:00 108 10/01/17 02:00 96 10/01/17 00:00 98.5 92 22 119/63 (81) 92 10/01/17 00:00 92 09/30/17 22:00 96 09/30/17 20:00 94 Nasal Cannula 4.00 09/30/17 20:00 100 09/30/17 20:00 98.6 100 22 117/67 (84) 95 09/30/17 18:00 95 09/30/17 16:00 97.8 106 22 135/73 (93) 95 09/30/17 16:00 106 09/30/17 14:00 103 09/30/17 12:00 100 09/30/17 12:00 98.3 100 19 128/68 (88) 94 I/O 09/30/17 09/30/17 09/30/17 10/01/17 10/01/17 10/01/17 07:00 15:00 23:00 07:00 15:00 23:00 Intake Total 680 ml 1170 ml 380 ml 740 ml Output Total 825 ml 1040 ml 1500 ml 450 ml Balance -145 ml 1170 ml -660 ml -760 ml -450 ml Intake Oral 480 ml 900 ml 120 ml 540 ml IV Total 200 ml 270 ml 260 ml 200 ml Output Urine Total 825 ml 1040 ml 1500 ml 450 ml # Bowel Movements 0 1 Result Diagram: 10/01/17 0535 09/30/17 0434 Objective Remarks moaning but awake Heart sounds are regular rate rhythm, 4 out of 6 ejection murmur Has Dan catheter with still red urine A/P Assessment and Plan 37-year-old female admitted with Severe Sepsis with shock and organ failure related to 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 Gross hematuria and microscopic pyuria - UC is negative. Could be 2/2 catheter vs other etiologies, Nephrology feels hematuria could be related to postinfectious glomerulonephritis (strep versus hep C). noncontrast ct abd neg for any clear source. Acute on chronic kidney injury -renal function seems to be plateauing with a creatinine right around 4 Anemia - dropping h/h slowly, Hemoccult ordered - iron studies pending Acute encephalopathy Narcotic Withdraw On methadone 10 mg daily Percocet 10/325 mg p.o. every 4 hourly as needed for pain/withdraw //Abdominal distention = 2 days s/p paracentesis w/ 1.4 L drained, likely 2/2 HF Severe sepsis with multiorgan failure Acute Renal Failure, cardiorenal syndrome Diastolic CHF secondary to valvulopathy. 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 on ancef and linezolid currently Abdominal pain Hepatosplenomegaly Hep C noted on serology P.o. diet as tolerated Acute kidney injury = Improving. Continue to monitor. Pancytopenia Thrombocytopenia stable DVT Prophylaxis Bleed risk SCDs Discharge Planning Continues on IV antibiotics for endocarditis Discharge Planning order placed for med/surg transfer Bo Olvera MD Oct 01, 2017 11:49
--- NOTE | 2017-10-01 13:17 | HHI.NPPN ---
Subjective History of Present Illness Patient is a 37-year-old with IVDA and endocarditis with acute renal failure Additional Remarks Her clinical condition is about the same. Some improvement in renal function. Review of Systems General Constitutional: Fatigue Musculoskeletal MS: Pain/Stiffness Objective Data Data 10/01/17 10/02/17 19:00 07:00 Output Total 450 ml Balance -450 ml Output Urine Total 450 ml Vital Signs Date Time Temp Pulse Resp B/P (MAP) Pulse Ox O2 Delivery O2 Flow Rate FiO2 10/01/17 12:00 97.9 111 24 144/94 (111) 93 10/01/17 10:00 99 10/01/17 08:00 98.2 94 26 130/72 (91) 96 10/01/17 08:00 95 Nasal Cannula 4.00 10/01/17 08:00 97 10/01/17 07:58 90 Nasal Cannula 3.00 10/01/17 06:00 100 10/01/17 04:00 98.6 108 26 143/56 (85) 100 10/01/17 04:00 108 10/01/17 02:00 96 10/01/17 00:00 98.5 92 22 119/63 (81) 92 10/01/17 00:00 92 09/30/17 22:00 96 09/30/17 20:00 94 Nasal Cannula 4.00 09/30/17 20:00 100 09/30/17 20:00 98.6 100 22 117/67 (84) 95 09/30/17 18:00 95 09/30/17 16:00 97.8 106 22 135/73 (93) 95 09/30/17 16:00 106 09/30/17 14:00 103 -: 10/01/17 0535 09/30/17 0434 Physical Exam General Appearance: No Acute Distress, Pale, Anxious Neck Neck Exam: Neck Supple Pulmonary Resp Exam: Decreased Bases Cardiology CV Exam: Regular Gastrointestinal/Abdomen GI Exam: Soft, Non-Tender, Distended, Bowel Sounds Hypoactive Integumentary Skin Exam: Ulcer(s) Extremeties Extremities Exam: Moderate Edema Neurologic Neuro Exam: Alert, Awake, Oriented Assessment/Plan Problem List: (1) Acute renal failure ICD Codes: N17.9 - Acute kidney failure, unspecified Plan: This is likely due to underlying endocarditis and severe infection, post infectious GN. . 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 GILLESPIE? Check REJI/ANCA/HIV/cryoglobulin unfortunately she has Endocarditis and Cr high for angiogram C3 low Give Solumedrol 40 mg IV to bee if see responds Non oliguric, renal function is slightly better. However, her prognosis is very poor. on Aldactone/bumex Monitor for electrolytes abnormalities. (2) Endocarditis ICD Codes: I38 - Endocarditis, valve unspecified Status: Acute Plan: Due to IVDA Vegetation on Tricuspid valve and also Aortic valve. Not a candidate for surgery per CTS. ID following. (3) Severe sepsis ICD Codes: A41.9 - Sepsis, unspecified organism; R65.20 - Severe sepsis without septic shock Status: Acute Plan: Staph aureus septicemia Azalea Gillette MD Oct 01, 2017 13:17
--- NOTE | 2017-10-01 13:56 | HHI.IDPN ---
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 Patient also had another admission in July, and at that time her blood cultures grew methicillin sensitive staph aureus. She signed out AGAINST MEDICAL ADVICE again at that time. When she came in this time, her CBC showed pancytopenia. CT of the chest showed evidence of multiple pulmonary septic emboli. 2 blood cultures done are now showing staph aureus. She was also hypotensive, and also had an elevated creatinine. Her urine output has been low. CT of the head did not show any significant abnormality. CT of the abdomen and pelvis showed splenomegaly. Patient currently still lethargic, and moaning. She is complaining of pain throughout her whole body. She is on Celso-Synephrine. Infectious disease consultation has been requested to evaluate the patient. Notes reviewed Temps ok Creatinine slightly lower Has good UO Has warner, still blood tinged urine Started on steroids by renal Platelets improving No further seizure BP ok Her echo showed a large TV veg, with mod to severe TR and an AV veg with moderate AI Antibiotics Ancef Current Medications Medications (Trade) Dose Ordered Sig/Amy Route Start Time Stop Time Status Last Admin (NS Flush) 2 ml UNSCH PRN IV FLUSH 09/16/17 17:00 10/01/17 00:56 (NS Flush) 2 ml BID IV FLUSH 09/16/17 21:00 10/01/17 09:23 (Albuterol Neb) 2.5 mg Q2HR NEB PRN INH 09/16/17 17:00 ([facility] [place]) 1 Q361D XX 09/16/17 17:00 09/16/17 20:22 (Chlorhexidine 2% Cloth) Taper DAILY@04 TOP 09/17/17 04:00 09/13/18 03:59 09/27/17 03:46 (Chlorhexidine 2% Cloth) 3 pack UNSCH PRN TOP 09/16/17 17:00 (Paula-Colace) 1 tab BID PO 09/16/17 21:00 10/01/17 09:14 (Milk Of Magnesia Liq) 30 ml Q12H PRN PO 09/16/17 17:00 09/19/17 11:19 (Senokot) 17.2 mg Q12H PRN PO 09/16/17 17:00 09/19/17 09:43 (Dulcolax Supp) 10 mg DAILY PRN RECTAL 09/16/17 17:00 09/19/17 11:20 (Lactulose Liq) 30 ml DAILY PRN PO 09/16/17 17:00 09/19/17 07:45 (Phenergan Inj) 25 mg Q6H PRN IM 09/16/17 17:00 09/21/17 05:29 (Percocet 10-325 Mg) 1 tab Q4H PRN PO 09/17/17 08:30 10/01/17 10:31 (Lopressor) 12.5 mg Q12HR PO 09/20/17 00:30 10/01/17 09:15 Cefazolin Sodium/ Dextrose 50 ml @ 100 mls/hr Q12H IV 09/24/17 10:00 10/01/17 09:23 (Norvasc) 10 mg DAILY PO 09/25/17 09:00 10/01/17 09:14 (Vitamin B1) 100 mg DAILY PO 09/25/17 09:00 10/01/17 09:22 (Phoslo) 1,334 mg TID PO 09/24/17 13:00 10/01/17 09:14 (Apresoline) 100 mg Q8HR PO 09/25/17 14:00 10/01/17 05:54 (Isordil) 10 mg Q8HR PO 09/25/17 14:00 10/01/17 05:57 (Megace) 40 mg Q12HR PO 09/25/17 10:30 10/01/17 09:14 (Aldactone) 25 mg BID@ PO 09/25/17 22:00 10/01/17 09:14 (Bumetanide) 1 mg BID@, PO 09/25/17 22:00 10/01/17 09:14 Levetriacetam 500 mg/Sodium Chloride 105 ml @ 420 mls/hr Q12HR IV 09/26/17 21:00 10/01/17 09:23 (D50w (Vial) Inj) 50 ml UNSCH PRN IV PUSH 09/26/17 09:30 (Glucagon Inj) 1 mg UNSCH PRN OTHER 09/26/17 09:30 (NovoLOG SUPPLEMENTAL SCALE) 1 ACHS SLIDING SCALE SQ 09/26/17 12:00 09/29/17 21:50 (Protonix) 40 mg DAILY PO 09/27/17 09:00 10/01/17 09:22 (Bactroban Nasal 2% Oint) 1 applic Taper BID EACH NARE 09/26/17 21:00 09/22/18 20:59 10/01/17 09:23 (Heparin Inj) 5,000 units Q12HR SQ 09/27/17 21:00 10/01/17 09:16 (Synthroid) 25 mcg DAILY@0600 PO 09/28/17 06:00 10/01/17 05:54 Albumin Human 100 ml @ 60 mls/hr Q6HR IV 09/27/17 18:00 10/01/17 13:11 (Zyvox) 600 mg Q12HR PO 09/28/17 14:15 10/05/17 14:14 10/01/17 09:15 (Habitrol 7 Mg Patch.24 Hr) 1 patch DAILY T-DERMAL 09/30/17 09:00 10/01/17 09:15 Miscellaneous Information 1 DAILY T-DERMAL 09/30/17 09:00 10/01/17 09:15 (SoluMEDROL INJ) 40 mg DAILY IV PUSH 10/01/17 13:45 Lines Line no evidence of infection Past Medical History Hepatitis C Tricuspid valve endocarditis Group A strep sepsis MSSA sepsis Known active IV drug use Allergies: Coded Allergies: No Known Allergies (Unverified Allergy, Unknown, 08/13/17) Objective . Vital Signs Date Time Temp Pulse Resp B/P (MAP) Pulse Ox O2 Delivery O2 Flow Rate FiO2 10/01/17 12:00 97.9 111 24 144/94 (111) 93 10/01/17 10:00 99 10/01/17 08:00 98.2 94 26 130/72 (91) 96 10/01/17 08:00 95 Nasal Cannula 4.00 10/01/17 08:00 97 10/01/17 07:58 90 Nasal Cannula 3.00 10/01/17 06:00 100 10/01/17 04:00 98.6 108 26 143/56 (85) 100 6/4/18 04:00 108 10/01/17 02:00 96 10/01/17 00:00 98.5 92 22 119/63 (81) 92 10/01/17 00:00 92 09/30/17 22:00 96 09/30/17 20:00 94 Nasal Cannula 4.00 09/30/17 20:00 100 09/30/17 20:00 98.6 100 22 117/67 (84) 95 09/30/17 18:00 95 09/30/17 16:00 97.8 106 22 135/73 (93) 95 09/30/17 16:00 106 09/30/17 14:00 103 10/01/17 10/01/17 10/02/17 15:00 23:00 07:00 Output Total 450 ml Balance -450 ml Output Urine Total 450 ml . Laboratory Tests Test 09/30/17 04:34 10/01/17 05:35 White Blood Count 6.5 TH/MM3 5.6 TH/MM3 Red Blood Count 2.72 MIL/MM3 2.59 MIL/MM3 Hemoglobin 7.6 GM/DL 7.3 GM/DL Hematocrit 22.9 % 21.9 % Mean Corpuscular Volume 84.1 FL 84.4 FL Mean Corpuscular Hemoglobin 28.0 PG 28.2 PG Mean Corpuscular Hemoglobin Concent 33.3 % 33.4 % Red Cell Distribution Width 19.9 % 20.6 % Platelet Count 129 TH/MM3 124 TH/MM3 Mean Platelet Volume 8.5 FL 9.2 FL Neutrophils (%) (Auto) 67.7 % Lymphocytes (%) (Auto) 23.7 % Monocytes (%) (Auto) 5.9 % Eosinophils (%) (Auto) 1.4 % Basophils (%) (Auto) 1.3 % Neutrophils # (Auto) 3.8 TH/MM3 Lymphocytes # (Auto) 1.3 TH/MM3 Monocytes # (Auto) 0.3 TH/MM3 Eosinophils # (Auto) 0.1 TH/MM3 Basophils # (Auto) 0.1 TH/MM3 CBC Comment DIFF FINAL Differential Comment Laboratory Tests Test 09/30/17 04:34 Blood Urea Nitrogen 62 MG/DL Creatinine 4.12 MG/DL Random Glucose 103 MG/DL Calcium Level 9.3 MG/DL Sodium Level 144 MEQ/L Potassium Level 3.5 MEQ/L Chloride Level 106 MEQ/L Carbon Dioxide Level 24.5 MEQ/L Anion Gap 14 MEQ/L Estimat Glomerular Filtration Rate 12 ML/MIN Microbiology Date/Time Source Procedure Growth Status 09/28/17 15:14 Urine Clean Catch Urine Culture - Final NO GROWTH IN 48 HOURS. Complete Imaging Last Impressions Chest X-Ray 09/16/17 1504 Signed Impressions: Service Date/Time: Saturday, September 16, 2017 15:28 - CONCLUSION: 1. Patchy bilateral lower lobe airspace disease, more prominent on the right. Findings are concerning for multilobar pneumonia or aspiration. Zenon Busch MD Head CT 09/16/17 0000 Signed Impressions: Service Date/Time: Saturday, September 16, 2017 17:56 - CONCLUSION: 1. No acute intracranial abnormality. 2. Left maxillary and sphenoid sinus mucosal disease. Zenon Busch MD Chest CT 09/16/17 0000 Signed Impressions: Service Date/Time: Saturday, September 16, 2017 18:04 - CONCLUSION: 1. Small bilateral pleural effusions with dense bilateral lower lobe airspace consolidation. 2. Numerous bilateral inflammatory pulmonary nodules including cavitary nodules in the apices bilaterally. Findings are consistent with septic emboli. Zenon Busch MD Abdomen/Pelvis CT 09/16/17 0000 Signed Impressions: Service Date/Time: Saturday, September 16, 2017 18:04 - CONCLUSION: 1. Limited examination due to paucity of peritoneal fat and patient's overlying arms. 2. Hepatosplenomegaly with small amount of ascites. 3. Small to moderate amount of colonic stool without evidence for bowel obstruction. Zenon Busch MD Physical Exam GENERAL: Awake and alert, not in distress. Up in recliner chair SKIN: Warm and dry. No generalized rash, no ecchymoses and no evidence of embolic lesions. HEAD: Atraumatic. Normocephalic. No temporal wasting, or tenderness. EYES: Brodnax conjunctiva. No petechia or hemorrhage. Pupils equal, round and reactive to light. Extraocular movements full and intact. No scleral icterus. No injection or drainage. EARS, NOSE AND THROAT: Nose without bleeding or purulent nasal discharge. No sinus tenderness. Very dry oral mucosa. NECK: Trachea midline. Supple, no meningeal signs CARDIOVASCULAR: Regular rate and rhythm. No murmurs, rubs or gallops heard RESPIRATORY: Clear to auscultation. Breath sounds equal bilaterally. No rales , wheezing or rhonchi. Decreased breath sounds at the bases ABDOMEN: Distended, with mild diffuse abdominal tenderness, tympanitic on percussion. Bowel sounds present and normoactive. : Warner cath in place. EXTREMITIES: No clubbing, cyanosis. Has improving bilateral pedal edema. Has wound L leg with some slough, no surrounding cellulitis NEUROLOGICAL: Grossly non-focal PSYCHIATRIC: Cooperative LINE: No evidence of infection Assessment & Plan Remarks IMPRESSION Sepsis with shock, due to endocarditis - BP stable - has MOSF - previously had GAS, then MSSA - now MSSA MSSA endocarditis - echo with large TV veg and now also with AV veg Has pulmonary septic emboli Has UTI Renal insufficiency, slightly better - has good UO - has hematuria, ?traumatic Pancytopenia, improving - thrombocytopenia improving Known very poor compliance to medical Rx DIC, better New SZ - MRI negative - MRI brain negative - no recurrent SZ (+) UC with VRE RECOMMENDATION Continue Ancef Zyvox x 7 days - follow CBC Progression of infection due to poor compliance to medical treatment Monitor progress She will need a course of IV antibiotics for her endocarditis Patient not surgical candidate per CTS Milana Harp MD Oct 01, 2017 13:56
[2017-10-01 14:47] LABS: % SATURATION IRON PROFILE 19.7 % (20-50); IRON (FE) 34 MCG/DL (50-170); TOTAL IRON BINDING CAPACITY 172 MCG/DL (250-450)
[2017-10-01] MEDS: methylPREDNISolone SOD SUCC 40 MG/1 ML VIAL IV PUSH SCH (15:05)
--- NOTE | 2017-10-01 17:48 | RADRPT ---
EXAM DATE: 10/01/2017 5:41 PM EDT AGE/SEX: 37 years / Female INDICATIONS: Ascites. CLINICAL DATA: This is the patient's subsequent encounter. Patient reports that signs and symptoms h ave been present for 1 day and indicates a pain score of 10/10. MEDICAL/SURGICAL HISTORY: . Hepatitis C. HIV. Pancreatitis. Seizures. Pulmonary embolism. . Pa racentesis. COMPARISON: [facility] – [place], [place] GUIDED ABD PARACENTESIS, 09/25/2017. . FLUID: Total volume of 2,000 cc of clear, red fluid was removed. Fluid was discarded. Paracentesis was thera peutic only. . . TECHNIQUE: Ultrasound guidance for abdominal paracentesis. Paracentesis. The risks, benefits, and alternatives to ultrasound guided paracentesis were explained to the patient in detail including the risk of bleeding and infection. Written and verbal informed consent was obt ained. FINDINGS: With the patient on the ultrasound table, ultrasound imaging was used to select the most appropriate approach for paracentesis. Overlying skin was prepped and draped in the usual sterile fashion and wi th a local anesthetic, a dermatotomy was made with an 11 blade scalpel. A 6 Croatian Saf-T -centesis c atheter was introduced into the peritoneal cavity and fluid was collected. Post procedure scanning reveals no hematoma or other complication. The patient tolerated the procedu re well and left the ultrasound suite in stable condition. CONCLUSION: Ultrasound-guided abdominal paracentesis as above. Electronically signed by: Sascha Saunders MD 10/01/2017 5:46 PM EDT
[2017-10-02] VITALS (12 sets, daily range): BP systolic 133–152; BP diastolic 74–95; PULSE 92–108; RESP 17–20; TEMP 97.7–98.5; O2SAT 92–95
[2017-10-02] MEDS ORDERED: LIDOCAINE HCL 1% 20 ML VIAL ONE (01:49)
[2017-10-02] MEDS: oxyCODONE/ACETAMINOPHEN 10 MG/325 MG TAB PO PRN ×5 (02:14→19:29)
[2017-10-02] MEDS: CHLORHEXIDINE GLUCONATE 2 % 1 PACK (2 CLOTHS) TOP SCH (04:00)
[2017-10-02] MEDS: ALBUMIN 25% INJ 100 ML IV SCH ×4 (05:50→19:00)
[2017-10-02] MEDS: ISOSORBIDE DINITRATE 10 MG TAB PO SCH ×3 (05:57→22:00)
[2017-10-02] MEDS: hydrALAZINE HCL 100 MG TAB PO SCH ×3 (05:58→22:11)
[2017-10-02] MEDS: LEVOTHYROXINE SODIUM 25 MCG TAB PO SCH (05:58)
[2017-10-02 07:27] LABS: ALBUMIN 4.4 GM/DL (3.4-5.0); BICARBONATE 20.9 MEQ/L (21.0-32.0); CALCIUM 9.5 MG/DL (8.5-10.1); CREATININE 3.74 MG/DL (0.50-1.00); PHOSPHORUS 4.3 MG/DL (2.5-4.9)
[2017-10-02] MEDS: INSULIN ASPART SUPPLEMENTAL SCALE SQ SCH ×4 (08:00→21:00)
[2017-10-02] MEDS: SODIUM CHLORIDE 0.9% FLUSH 10 ML FLUSH IV FLUSH SCH ×2 (09:00→21:00)
[2017-10-02] MEDS: REMOVE OLD PATCH T-DERMAL SCH (09:00)
[2017-10-02] MEDS: amLODIPine BESYLATE 5 MG TAB PO SCH (09:49)
[2017-10-02] MEDS: THIAMINE HCL 100 MG TAB PO SCH (09:49)
[2017-10-02] MEDS: MEGESTROL ACETATE 40 MG TAB PO SCH ×2 (09:49→22:13)
[2017-10-02] MEDS: BUMETANIDE 1 MG TAB PO SCH ×2 (09:49→18:59)
[2017-10-02] MEDS: LINEZOLID 600 MG TAB PO SCH ×2 (09:50→22:10)
[2017-10-02] MEDS: CALCIUM ACETATE 667 MG CAP PO SCH ×3 (09:50→18:59)
[2017-10-02] MEDS: DOCUSATE SODIUM 50 MG/SENNA 8.6 MG TAB PO SCH ×2 (09:50→22:11)
[2017-10-02] MEDS: METOPROLOL TARTRATE 25 MG TAB PO SCH ×2 (09:50→22:11)
[2017-10-02] MEDS: PANTOPRAZOLE SOD 40 MG DELAYED RELEASE TAB PO SCH (09:50)
[2017-10-02] MEDS: SPIRONOLACTONE 25 MG TAB PO SCH ×2 (09:50→18:59)
[2017-10-02] MEDS: HEPARIN SODIUM - SQ 10,000 UNITS/ML VIAL SQ SCH ×2 (09:51→22:13)
[2017-10-02] MEDS: methylPREDNISolone SOD SUCC 40 MG/1 ML VIAL IV PUSH SCH (09:52)
[2017-10-02] MEDS: NICOTINE 7 MG/24 HR PATCH T-DERMAL SCH (09:52)
[2017-10-02] MEDS: LIDOCAINE HCL 5% PATCH T-DERMAL SCH (09:53)
[2017-10-02] MEDS: ceFAZolin 2 GM PREMIX 50 ML IV SCH ×2 (09:53→22:12)
--- NOTE | 2017-10-02 10:29 | HHI.PR ---
Subjective Remarks Follow-up for severe sepsis, infective endocarditis, septic pulmonary emboli, ascites. Patient seen with her mother at bedside. Patient is very upset that she has not been able to sleep and is requesting a medication to help her sleep at night. She reports continued diffuse abdominal pain, but did get some relief after paracentesis yesterday. She is tolerating oral intake with no nausea/vomiting. Denies fevers or chills. Still reporting dyspnea, unchanged compared to previous days. Denies any chest pain. She is upset that she was not given any additional pain medications when she was having intractable abdominal pain yesterday. She is worried that her pain will return and is requesting stronger pain medications again. Thoroughly discussed that we would like to limit narcotic medications as she is already on Percocet every 4 hours, patient and mother verbalized understanding. Objective Vitals Vital Signs Date Time Temp Pulse Resp B/P (MAP) Pulse Ox O2 Delivery O2 Flow Rate FiO2 10/02/17 08:08 97.9 98 17 133/86 (102) 93 10/02/17 04:00 98.1 92 20 138/74 (95) 94 10/02/17 04:00 97 10/02/17 00:00 97.7 102 20 141/80 (100) 95 10/02/17 00:00 105 10/01/17 20:00 112 10/01/17 20:00 98.2 110 20 142/76 (98) 94 10/01/17 20:00 Nasal Cannula 4.00 10/01/17 17:43 97.8 105 22 133/81 (98) 94 10/01/17 17:34 92 Nasal Cannula 3.00 10/01/17 16:00 99.1 112 22 138/76 (96) 92 10/01/17 15:52 109 10/01/17 12:00 97.9 111 24 144/94 (111) 93 10/01/17 11:35 109 I/O 10/01/17 10/01/17 10/01/17 10/02/17 10/02/17 10/02/17 07:00 15:00 23:00 07:00 15:00 23:00 Intake Total 740 ml 100 ml 585 ml 200 ml 100 ml Output Total 1500 ml 450 ml 350 ml 1150 ml Balance -760 ml -350 ml 235 ml -950 ml 100 ml Intake Oral 540 ml 480 ml IV Total 200 ml 100 ml 105 ml 200 ml 100 ml Output Urine Total 1500 ml 450 ml 350 ml 1150 ml Result Diagram: 10/01/17 0535 10/02/17614 Imaging Last Impressions Cyst Biopsy Asp-Paracentesis US 10/01/17 Signed Impressions: CONCLUSION: Ultrasound-guided abdominal paracentesis as above. Abdomen/Pelvis CT 09/30/17 Signed Impressions: CONCLUSION: 1. No acute obstructive uropathy. 2. Interval increased ascites and new diffuse anasarca. 3. Increased bilateral pleural effusions with adjacent alveolar consolidations . 4. Stable hepatosplenomegaly. 5. Stable calcified right adrenal gland. Chest X-Ray 09/28/17599 Signed Impressions: CONCLUSION: Stable bilateral airspace disease and pleural effusions compared with September 27. Brain MRI 09/26/17 Signed Impressions: CONCLUSION: 1. Negative MR Brain non contrast. 2. Specifically, no evidence for hippocampal sclerosis. 3. Left sphenoid sinus mucosal disease. Abdomen X-Ray 09/25/17 Signed Impressions: CONCLUSION: Probable ascites. Upper Extremity Ultrasound 09/19/17 Signed Impressions: CONCLUSION: 1. No evidence of DVT. Lower Extremity Ultrasound 09/19/17 Signed Impressions: CONCLUSION: 1. No evidence of DVT. Abdomen Ultrasound 09/19/17 Signed Impressions: CONCLUSION: 1. Diffusely enlarged liver with increased echogenicity suggestive of fatty in filtration and/or hepatocellular disease. 2. Small amount of ascites in the upper abdomen. 3. No definite gallstones. There is thickening of the gallbladder wall at 7 mm . 4. The spleen is diffusely enlarged with several hypoechoic densities within t he spleen. There are splenic granulomas present. Head CT 09/16/17 Signed Impressions: Service Date/Time: Saturday, September 16, 2017 17:56 - CONCLUSION: 1. No acute intracranial abnormality. 2. Left maxillary and sphenoid sinus mucosal disease. Zenon Busch MD Chest CT 09/16/17 Signed Impressions: Service Date/Time: Saturday, September 16, 2017 18:04 - CONCLUSION: 1. Small bilateral pleural effusions with dense bilateral lower lobe airspace consolidation. 2. Numerous bilateral inflammatory pulmonary nodules including cavitary nodules in the apices bilaterally. Findings are consistent with septic emboli. Zenon Busch MD Objective Remarks GENERAL: Well-nourished, well-developed middle-aged female patient in [facility]. SKIN: Warm and dry. No rash. HEENT: Normocephalic. Atraumatic. Pupils equal and round. Mucous membranes pink and moist. CARDIOVASCULAR: Regular rate and rhythm. 3/6 systolic murmur noted. RESPIRATORY: No accessory muscle use. Clear to auscultation. Breath sounds equal bilaterally. GASTROINTESTINAL: Abdomen distended without significant fluid wave/ascites, nontender to palpation with distraction. Normoactive bowel sounds x4. MUSCULOSKELETAL: No obvious deformities. Extremities without clubbing, cyanosis , or edema. NEUROLOGICAL: Awake and alert. No obvious cranial nerve deficits. Motor grossly within normal limits. Moving all extremities spontaneously. Normal speech. PSYCHIATRIC: Anxious mood. Medications and IVs Current Medications Medications (Trade) Dose Ordered Sig/Amy Route Start Time Stop Time Status Last Admin (NS Flush) 2 ml UNSCH PRN IV FLUSH 09/16/17 17:00 10/01/17 00:56 (NS Flush) 2 ml BID IV FLUSH 09/16/17 21:00 10/02/17 09:00 (Albuterol Neb) 2.5 mg Q2HR NEB PRN INH 09/16/17 17:00 ([facility] [place] [facility] [place]) 1 Q361D XX 09/16/17 17:00 09/16/17 20:22 (Chlorhexidine 2% Cloth) Taper DAILY@04 TOP 09/17/17 04:00 09/13/18 03:59 09/27/17 03:46 (Chlorhexidine 2% Cloth) 3 pack UNSCH PRN TOP 09/16/17 17:00 (Paula-Colace) 1 tab BID PO 09/16/17 21:00 10/02/17 09:50 (Milk Of Magnesia Liq) 30 ml Q12H PRN PO 09/16/17 17:00 09/19/17 11:19 (Senokot) 17.2 mg Q12H PRN PO 09/16/17 17:00 09/19/17 09:43 (Dulcolax Supp) 10 mg DAILY PRN RECTAL 09/16/17 17:00 09/19/17 11:20 (Lactulose Liq) 30 ml DAILY PRN PO 09/16/17 17:00 09/19/17 07:45 (Phenergan Inj) 25 mg Q6H PRN IM 09/16/17 17:00 09/21/17 05:29 (Percocet 10-325 Mg) 1 tab Q4H PRN PO 09/17/17 08:30 10/02/17 09:51 (Lopressor) 12.5 mg Q12HR PO 09/20/17 00:30 10/02/17 09:50 Cefazolin Sodium/ Dextrose 50 ml @ 100 mls/hr Q12H IV 09/24/17 10:00 10/02/17 09:53 (Norvasc) 10 mg DAILY PO 09/25/17 09:00 10/02/17 09:49 (Vitamin B1) 100 mg DAILY PO 09/25/17 09:00 10/02/17 09:49 (Phoslo) 1,334 mg TID PO 09/24/17 13:00 10/02/17 09:50 (Apresoline) 100 mg Q8HR PO 09/25/17 14:00 10/02/17 05:58 (Isordil) 10 mg Q8HR PO 09/25/17 14:00 10/02/17 05:57 (Megace) 40 mg Q12HR PO 09/25/17 10:30 10/02/17 09:49 (Aldactone) 25 mg BID@ PO 09/25/17 22:00 10/02/17 09:50 (Bumetanide) 1 mg BID@ PO 09/25/17 22:00 10/02/17 09:49 Levetriacetam 500 mg/Sodium Chloride 105 ml @ 420 mls/hr Q12HR IV 09/26/17 21:00 10/02/17 12:22 (D50w (Vial) Inj) 50 ml UNSCH PRN IV PUSH 09/26/17 09:30 (Glucagon Inj) 1 mg UNSCH PRN OTHER 09/26/17 09:30 (NovoLOG SUPPLEMENTAL SCALE) 1 ACHS SLIDING SCALE SQ 09/26/17 12:00 09/29/17 21:50 (Protonix) 40 mg DAILY PO 09/27/17 09:00 10/02/17 09:50 (Bactroban Nasal 2% Oint) Taper BID EACH NARE 09/26/17 21:00 09/22/18 20:59 10/02/17 11:57 (Heparin Inj) 5,000 units Q12HR SQ 09/27/17 21:00 10/02/17 09:51 (Synthroid) 25 mcg DAILY@0600 PO 09/28/17 06:00 10/02/17 05:58 Albumin Human 100 ml @ 60 mls/hr Q6HR IV 09/27/17 18:00 10/02/17 11:57 (Zyvox) 600 mg Q12HR PO 09/28/17 14:15 10/05/17 14:14 10/02/17 09:50 (Habitrol 7 Mg Patch.24 Hr) 1 patch DAILY T-DERMAL 09/30/17 09:00 10/02/17 09:52 Miscellaneous Information 1 DAILY T-DERMAL 09/30/17 09:00 10/02/17 09:00 (SoluMEDROL INJ) 40 mg DAILY IV PUSH 10/01/17 13:45 10/02/17 09:52 (Lidoderm 5% Patch.12 Hr) 1 patch DAILY T-DERMAL 10/02/17 09:00 10/02/17 09:53 Miscellaneous Information 1 Q24H T-DERMAL 10/02/17 21:00 (Restoril) 15 mg HS PRN PO 10/02/17 21:00 A/P Assessment and Plan 37-year-old female admitted with Severe Sepsis with shock and organ failure related to 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 Could be 2/2 catheter vs other etiologies -Nephrology feels hematuria could be related to postinfectious glomerulonephritis (strep versus hep C). -noncontrast ct abd neg for any clear source. -continue to monitor Acute on chronic kidney injury -continues to slowly improve, Cr 3.74 today Anemia - dropping h/h slowly, Hemoccult ordered - iron studies consistent with anemia of chronic disease - monitor daily CBC, transfuse if < 7.0 Acute encephalopathy Narcotic Withdraw -Continue on Percocet 325 mg p.o. every 4 hourly as needed for pain/withdraw Abdominal distention/ascites -likely secondary to heart failure as LFTs wnl -CT abd with stable hepatosplenomegaly -S/p paracentesis 09/25 with 1.4L removed and 10/01 with 2L removed -continue to monitor, may need repeat paracentesis during hospitalization -of note, patient noncompliant with diet, mother brought in pizza and other food Severe sepsis with multiorgan failure Acute Renal Failure, cardiorenal syndrome Diastolic CHF secondary to valvulopathy. Pulmonary hypertension -Follow creatinine -Nephrology following Abdominal pain Hepatosplenomegaly Hep C noted on serology P.o. diet as tolerated Acute kidney injury -Improving. Continue to monitor. Pancytopenia Thrombocytopenia -stable DVT Prophylaxis -Bleed risk -SCDs I spent 35 minutes [id number] with the patient or on the morgan discussing the patient's disposition, prognosis, and plan of care with her caregivers, mother. Over half the time spent was devoted to counseling the patient regarding placement in coordinating care with caregivers. Discharge Planning Discharge pending further clinical improvement. Not even close to being ready for discharge. Patient still very ill. So Flores PA-C Oct 02, 2017 10:29 am
[2017-10-02] MEDS: MUPIROCIN 2% OINT 1 APPLIC/GM SYR EACH NARE SCH ×2 (11:57→22:13)
--- NOTE | 2017-10-02 12:15 | HHI.NPPN ---
Subjective History of Present Illness Patient is a 37-year-old with IVDA and endocarditis with acute renal failure Additional Remarks Her clinical condition is about the same. Some improvement in renal function. Review of Systems General Constitutional: Fatigue Musculoskeletal MS: Pain/Stiffness Objective Data Data 10/02/17 10/03/17 19:00 07:00 Intake Total 100 ml Balance 100 ml IV Total 100 ml Vital Signs Date Time Temp Pulse Resp B/P (MAP) Pulse Ox O2 Delivery O2 Flow Rate FiO2 10/02/17 08:08 97.9 98 17 133/86 (102) 93 10/02/17 07:00 Nasal Cannula 4.00 10/02/17 04:00 98.1 92 20 138/74 (95) 94 10/02/17 04:00 97 10/02/17 00:00 97.7 102 20 141/80 (100) 95 10/02/17 00:00 105 10/01/17 20:00 112 10/01/17 20:00 98.2 110 20 142/76 (98) 94 10/01/17 20:00 Nasal Cannula 4.00 10/01/17 17:43 97.8 105 22 133/81 (98) 94 10/01/17 17:34 92 Nasal Cannula 3.00 10/01/17 16:00 99.1 112 22 138/76 (96) 92 10/01/17 15:52 109 -: 10/01/17 0535 10/02/17 0615 Physical Exam General Appearance: No Acute Distress, Pale, Anxious Neck Neck Exam: Neck Supple Pulmonary Resp Exam: Decreased Bases Cardiology CV Exam: Regular Gastrointestinal/Abdomen GI Exam: Soft, Non-Tender, Distended, Bowel Sounds Hypoactive Integumentary Skin Exam: Ulcer(s) Extremeties Extremities Exam: Moderate Edema Neurologic Neuro Exam: Alert, Awake, Oriented Assessment/Plan Problem List: (1) Acute renal failure ICD Codes: N17.9 - Acute kidney failure, unspecified Plan: This is likely due to underlying endocarditis and severe infection, post infectious GN. . 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 GILLESPIE? Check REJI/ANCA/HIV/cryoglobulin unfortunately she has Endocarditis and Cr high for angiogram C3 low Give Solumedrol 40 mg IV to bee if see responds Non oliguric, renal function is slightly better. on Aldactone/bumex Monitor for electrolytes abnormalities. follow ANCA/REJI/Cryoglobulin (2) Endocarditis ICD Codes: I38 - Endocarditis, valve unspecified Status: Acute Plan: Due to IVDA Vegetation on Tricuspid valve and also Aortic valve. Not a candidate for surgery per CTS. ID following. (3) Severe sepsis ICD Codes: A41.9 - Sepsis, unspecified organism; R65.20 - Severe sepsis without septic shock Status: Acute Plan: Staph aureus septicemia Azalea Gillette MD Oct 02, 2017 12:15
[2017-10-02] MEDS: levETIRAcetam INJ 500 MG in SODIUM CHLORIDE 0.9% INJ 100 ML IV SCH ×2 (12:22→22:39)
--- NOTE | 2017-10-02 14:01 | HHI.IDPN ---
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 Patient also had another admission in July, and at that time her blood cultures grew methicillin sensitive staph aureus. She signed out AGAINST MEDICAL ADVICE again at that time. When she came in this time, her CBC showed pancytopenia. CT of the chest showed evidence of multiple pulmonary septic emboli. 2 blood cultures done are now showing staph aureus. She was also hypotensive, and also had an elevated creatinine. Her urine output has been low. CT of the head did not show any significant abnormality. CT of the abdomen and pelvis showed splenomegaly. Patient currently still lethargic, and moaning. She is complaining of pain throughout her whole body. She is on Celso-Synephrine. Infectious disease consultation has been requested to evaluate the patient. Notes reviewed Temps ok Started on steroids yesterday Creatinine slightly lower Has good UO Main issue is pain control Platelets stable No further seizure BP ok Her echo showed a large TV veg, with mod to severe TR and an AV veg with moderate AI Antibiotics Ancef Current Medications Medications (Trade) Dose Ordered Sig/Amy Route Start Time Stop Time Status Last Admin (NS Flush) 2 ml UNSCH PRN IV FLUSH 09/16/17 17:00 10/01/17 00:56 (NS Flush) 2 ml BID IV FLUSH 09/16/17 21:00 10/02/17 09:00 (Albuterol Neb) 2.5 mg Q2HR NEB PRN INH 09/16/17 17:00 ([facility] [place] [facility] Information) 1 Q361D XX 09/16/17 17:00 09/16/17 20:22 (Chlorhexidine 2% Cloth) Taper DAILY@04 TOP 09/17/17 04:00 09/13/18 03:59 09/27/17 03:46 (Chlorhexidine 2% Cloth) 3 pack UNSCH PRN TOP 09/16/17 17:00 (Paula-Colace) 1 tab BID PO 09/16/17 21:00 10/02/17 09:50 (Milk Of Magnesia Liq) 30 ml Q12H PRN PO 09/16/17 17:00 09/19/17 11:19 (Senokot) 17.2 mg Q12H PRN PO 09/16/17 17:00 09/19/17 09:43 (Dulcolax Supp) 10 mg DAILY PRN RECTAL 09/16/17 17:00 09/19/17 11:20 (Lactulose Liq) 30 ml DAILY PRN PO 09/16/17 17:00 09/19/17 07:45 (Phenergan Inj) 25 mg Q6H PRN IM 09/16/17 17:00 09/21/17 05:29 (Percocet 10-325 Mg) 1 tab Q4H PRN PO 09/17/17 08:30 10/02/17 09:51 (Lopressor) 12.5 mg Q12HR PO 09/20/17 00:30 10/02/17 09:50 Cefazolin Sodium/ Dextrose 50 ml @ 100 mls/hr Q12H IV 09/24/17 10:00 10/02/17 09:53 (Norvasc) 10 mg DAILY PO 09/25/17 09:00 10/02/17 09:49 (Vitamin B1) 100 mg DAILY PO 09/25/17 09:00 10/02/17 09:49 (Phoslo) 1,334 mg TID PO 09/24/17 13:00 10/02/17 09:50 (Apresoline) 100 mg Q8HR PO 09/25/17 14:00 10/02/17 05:58 (Isordil) 10 mg Q8HR PO 09/25/17 14:00 10/02/17 05:57 (Megace) 40 mg Q12HR PO 09/25/17 10:30 10/02/17 09:49 (Aldactone) 25 mg BID@ PO 09/25/17 22:00 10/02/17 09:50 (Bumetanide) 1 mg BID@, PO 09/25/17 22:00 10/02/17 09:49 Levetriacetam 500 mg/Sodium Chloride 105 ml @ 420 mls/hr Q12HR IV 09/26/17 21:00 10/02/17 12:22 (D50w (Vial) Inj) 50 ml UNSCH PRN IV PUSH 09/26/17 09:30 (Glucagon Inj) 1 mg UNSCH PRN OTHER 09/26/17 09:30 (NovoLOG SUPPLEMENTAL SCALE) 1 ACHS SLIDING SCALE SQ 09/26/17 12:00 09/29/17 21:50 (Protonix) 40 mg DAILY PO 09/27/17 09:00 10/02/17 09:50 (Bactroban Nasal 2% Oint) Taper BID EACH NARE 09/26/17 21:00 09/22/18 20:59 10/02/17 11:57 (Heparin Inj) 5,000 units Q12HR SQ 09/27/17 21:00 10/02/17 09:51 (Synthroid) 25 mcg DAILY@0600 PO 09/28/17 06:00 10/02/17 05:58 Albumin Human 100 ml @ 60 mls/hr Q6HR IV 09/27/17 18:00 10/02/17 11:57 (Zyvox) 600 mg Q12HR PO 09/28/17 14:15 10/05/17 14:14 10/02/17 09:50 (Habitrol 7 Mg Patch.24 Hr) 1 patch DAILY T-DERMAL 09/30/17 09:00 10/02/17 09:52 Miscellaneous Information 1 DAILY T-DERMAL 09/30/17 09:00 10/02/17 09:00 (SoluMEDROL INJ) 40 mg DAILY IV PUSH 10/01/17 13:45 10/02/17 09:52 (Lidoderm 5% Patch.12 Hr) 1 patch DAILY T-DERMAL 10/02/17 09:00 10/02/17 09:53 Miscellaneous Information 1 Q24H T-DERMAL 10/02/17 21:00 (Restoril) 15 mg HS PRN PO 10/02/17 21:00 Lines Line no evidence of infection Past Medical History Hepatitis C Tricuspid valve endocarditis Group A strep sepsis MSSA sepsis Known active IV drug use Allergies: Coded Allergies: No Known Allergies (Unverified Allergy, Unknown, 08/13/17) Objective . Vital Signs Date Time Temp Pulse Resp B/P (MAP) Pulse Ox O2 Delivery O2 Flow Rate FiO2 10/02/17 12:00 94 10/02/17 08:08 97.9 98 17 133/86 (102) 93 10/02/17 08:00 92 10/02/17 07:00 Nasal Cannula 4.00 10/02/17 04:00 98.1 92 20 138/74 (95) 94 10/02/17 04:00 97 10/02/17 00:00 97.7 102 20 141/80 (100) 95 10/02/17 00:00 105 10/01/17 20:00 112 10/01/17 20:00 98.2 110 20 142/76 (98) 94 10/01/17 20:00 Nasal Cannula 4.00 10/01/17 17:43 97.8 105 22 133/81 (98) 94 10/01/17 17:34 92 Nasal Cannula 3.00 10/01/17 16:00 99.1 112 22 138/76 (96) 92 10/01/17 15:52 109 10/02/17 10/02/17 10/03/17 15:00 23:00 07:00 Intake Total 100 ml Balance 100 ml IV Total 100 ml . Laboratory Tests Test 10/01/17 05:35 White Blood Count 5.6 TH/MM3 Red Blood Count 2.59 MIL/MM3 Hemoglobin 7.3 GM/DL Hematocrit 21.9 % Mean Corpuscular Volume 84.4 FL Mean Corpuscular Hemoglobin 28.2 PG Mean Corpuscular Hemoglobin Concent 33.4 % Red Cell Distribution Width 20.6 % Platelet Count 124 TH/MM3 Mean Platelet Volume 9.2 FL Neutrophils (%) (Auto) 67.7 % Lymphocytes (%) (Auto) 23.7 % Monocytes (%) (Auto) 5.9 % Eosinophils (%) (Auto) 1.4 % Basophils (%) (Auto) 1.3 % Neutrophils # (Auto) 3.8 TH/MM3 Lymphocytes # (Auto) 1.3 TH/MM3 Monocytes # (Auto) 0.3 TH/MM3 Eosinophils # (Auto) 0.1 TH/MM3 Basophils # (Auto) 0.1 TH/MM3 CBC Comment DIFF FINAL Differential Comment Laboratory Tests Test 10/01/17 14:15 10/02/17 06:15 Iron Level 34 MCG/DL Total Iron Binding Capacity 172 MCG/DL Percent Iron Saturation 19.7 % Blood Urea Nitrogen 64 MG/DL Creatinine 3.74 MG/DL Random Glucose 97 MG/DL Albumin 4.4 GM/DL Calcium Level 9.5 MG/DL Phosphorus Level 4.3 MG/DL Sodium Level 142 MEQ/L Potassium Level 4.3 MEQ/L Chloride Level 107 MEQ/L Carbon Dioxide Level 20.9 MEQ/L Anion Gap 14 MEQ/L Estimat Glomerular Filtration Rate 14 ML/MIN Imaging Last Impressions Chest X-Ray 09/16/17 1504 Signed Impressions: Service Date/Time: Saturday, September 16, 2017 15:28 - CONCLUSION: 1. Patchy bilateral lower lobe airspace disease, more prominent on the right. Findings are concerning for multilobar pneumonia or aspiration. Zenon Busch MD Head CT 09/16/17 0000 Signed Impressions: Service Date/Time: Saturday, September 16, 2017 17:56 - CONCLUSION: 1. No acute intracranial abnormality. 2. Left maxillary and sphenoid sinus mucosal disease. Zenon Busch MD Chest CT 09/16/17 0000 Signed Impressions: Service Date/Time: Saturday, September 16, 2017 18:04 - CONCLUSION: 1. Small bilateral pleural effusions with dense bilateral lower lobe airspace consolidation. 2. Numerous bilateral inflammatory pulmonary nodules including cavitary nodules in the apices bilaterally. Findings are consistent with septic emboli. Zenon Busch MD Abdomen/Pelvis CT 09/16/17 0000 Signed Impressions: Service Date/Time: Saturday, September 16, 2017 18:04 - CONCLUSION: 1. Limited examination due to paucity of peritoneal fat and patient's overlying arms. 2. Hepatosplenomegaly with small amount of ascites. 3. Small to moderate amount of colonic stool without evidence for bowel obstruction. Zenon Busch MD Physical Exam GENERAL: Awake and alert, not in distress. Up in recliner chair SKIN: Warm and dry. No generalized rash, no ecchymoses and no evidence of embolic lesions. HEAD: Atraumatic. Normocephalic. No temporal wasting, or tenderness. EYES: Curtis conjunctiva. No petechia or hemorrhage. Pupils equal, round and reactive to light. Extraocular movements full and intact. No scleral icterus. No injection or drainage. EARS, NOSE AND THROAT: Nose without bleeding or purulent nasal discharge. No sinus tenderness. Very dry oral mucosa. NECK: Trachea midline. Supple, no meningeal signs CARDIOVASCULAR: Regular rate and rhythm. No murmurs, rubs or gallops heard RESPIRATORY: Clear to auscultation. Breath sounds equal bilaterally. No rales , wheezing or rhonchi. Decreased breath sounds at the bases ABDOMEN: Distended, with mild diffuse abdominal tenderness, tympanitic on percussion. Bowel sounds present and normoactive. : Dan cath in place. EXTREMITIES: No clubbing, cyanosis. Has improving bilateral pedal edema. Has wound L leg with some slough, no surrounding cellulitis NEUROLOGICAL: Grossly non-focal PSYCHIATRIC: Cooperative LINE: No evidence of infection Assessment & Plan Remarks IMPRESSION Sepsis with shock, due to endocarditis - BP stable - has MOSF - previously had GAS, then MSSA - now MSSA MSSA endocarditis - echo with large TV veg and now also with AV veg Has pulmonary septic emboli Has UTI Renal failure, slightly better - has good UO - has hematuria, ?traumatic Pancytopenia, improving - thrombocytopenia improving Known very poor compliance to medical Rx DIC, better New SZ - MRI negative - MRI brain negative - no recurrent SZ (+) UC with VRE RECOMMENDATION Continue Ancef Zyvox x 7 days - follow CBC Progression of infection due to poor compliance to medical treatment Monitor progress She will need a course of IV antibiotics for her endocarditis Patient not surgical candidate per CTS ON trial of steroids for her renal failure Milana Harp MD Oct 02, 2017 14:01
[2017-10-02] MEDS ORDERED: TEMAZEPAM 15 MG CAP PO PRN (21:00)
[2017-10-02] MEDS: REMOVE OLD LIDOCAINE PATCH T-DERMAL SCH (21:00)
[2017-10-03] VITALS (11 sets, daily range): BP systolic 139–157; BP diastolic 82–91; PULSE 90–105; RESP 17–28; TEMP 97.3–98; O2SAT 91–97
[2017-10-03] MEDS: ALBUMIN 25% INJ 100 ML IV SCH ×3 (00:02→11:54)
--- NOTE | 2017-10-03 00:12 | PD.ONC.PN ---
Subjective Subjective Remarks Resting comfortably in bed in no distress. Patient reports difficulty sleeping while in the hospital. Objective Data Date Time Temp Pulse Resp B/P (MAP) Pulse Ox O2 Delivery O2 Flow Rate FiO2 10/02/17 21:08 98.5 104 18 141/82 (101) 94 10/02/17 18:08 98.2 96 18 138/84 (102) 94 10/02/17 17:36 92 Nasal Cannula 3.00 10/02/17 12:08 98.0 101 17 152/95 (114) 92 10/02/17 12:00 94 10/02/17 08:08 97.9 98 17 133/86 (102) 93 10/02/17 08:00 92 10/02/17 07:00 Nasal Cannula 4.00 10/02/17 04:00 98.1 92 20 138/74 (95) 94 10/02/17 04:00 97 Result Diagram: 10/01/17 0535 10/02/17 0615 Laboratory Results Laboratory Tests Test 10/02/17 06:15 Blood Urea Nitrogen 64 MG/DL Creatinine 3.74 MG/DL Random Glucose 97 MG/DL Albumin 4.4 GM/DL Calcium Level 9.5 MG/DL Phosphorus Level 4.3 MG/DL Sodium Level 142 MEQ/L Potassium Level 4.3 MEQ/L Chloride Level 107 MEQ/L Carbon Dioxide Level 20.9 MEQ/L Anion Gap 14 MEQ/L Estimat Glomerular Filtration Rate 14 ML/MIN Administered Medications Medications (Trade) Dose Ordered Sig/Amy Route PRN Reason Start Time Stop Time Status Last Admin Dose Admin Sodium Chloride (NS Flush) 2 ml UNSCH PRN IV FLUSH FLUSH AFTER USING IV ACCESS 09/16/17 17:00 10/01/17 00:56 Sodium Chloride (NS Flush) 2 ml BID IV FLUSH 09/16/17 21:00 10/02/17 21:00 Miscellaneous Information [place] [place] 1 Q361D XX 09/16/17 17:00 09/16/17 20:22 Chlorhexidine Gluconate (Chlorhexidine 2% Cloth) Taper DAILY@04 TOP 09/17/17 04:00 09/13/18 03:59 09/27/17 03:46 Senna/Docusate Sodium (Paula-Colace) 1 tab BID PO 09/16/17 21:00 10/02/17 22:11 Magnesium Hydroxide (Milk Of Magnesia Liq) 30 ml Q12H PRN PO Mild constipation 09/16/17 17:00 09/19/17 11:19 Sennosides (Senokot) 17.2 mg Q12H PRN PO Moderate constipation 09/16/17 17:00 09/19/17 09:43 Bisacodyl (Dulcolax Supp) 10 mg DAILY PRN RECTAL SEVERE CONSITIPATION 09/16/17 17:00 09/19/17 11:20 Lactulose (Lactulose Liq) 30 ml DAILY PRN PO SEVERE CONSITIPATION 09/16/17 17:00 09/19/17 07:45 Promethazine HCl (Phenergan Inj) 25 mg Q6H PRN IM NAUSEA/VOMITING 09/16/17 17:00 09/21/17 05:29 Oxycodone/ Acetaminophen (Percocet 10-325 Mg) 1 tab Q4H PRN PO pain scale 5-10 09/17/17 08:30 10/02/17 19:29 Metoprolol Tartrate (Lopressor) 12.5 mg Q12HR PO 09/20/17 00:30 10/02/17 22:11 Cefazolin Sodium/ Dextrose 50 ml @ 100 mls/hr Q12H IV 09/24/17 10:00 10/02/17 22:12 Amlodipine Besylate (Norvasc) 10 mg DAILY PO 09/25/17 09:00 10/02/17 09:49 Thiamine HCl (Vitamin B1) 100 mg DAILY PO 09/25/17 09:00 10/02/17 09:49 Calcium Acetate (Phoslo) 1,334 mg TID PO 09/24/17 13:00 10/02/17 18:59 Hydralazine HCl (Apresoline) 100 mg Q8HR PO 09/25/17 14:00 10/02/17 22:11 Isosorbide Dinitrate (Isordil) 10 mg Q8HR PO 09/25/17 14:00 10/02/17 22:00 Megestrol Acetate (Megace) 40 mg Q12HR PO 09/25/17 10:30 10/02/17 22:13 Spironolactone (Aldactone) 25 mg BID@09,18 PO 09/25/17 22:00 10/02/17 18:59 Bumetanide (Bumetanide) 1 mg BID@ PO 09/25/17 22:00 10/02/17 18:59 Levetriacetam 500 mg/Sodium Chloride 105 ml @ 420 mls/hr Q12HR IV 09/26/17 21:00 10/02/17 22:39 Insulin Aspart (NovoLOG SUPPLEMENTAL SCALE) 1 ACHS SLIDING SCALE SQ 09/26/17 12:00 10/02/17 21:00 Pantoprazole Sodium (Protonix) 40 mg DAILY PO 09/27/17 09:00 10/02/17 09:50 Mupirocin (Bactroban Nasal 2% Oint) Taper BID EACH NARE 09/26/17 21:00 09/22/18 20:59 10/02/17 22:13 Heparin Sodium (Porcine) (Heparin Inj) 5,000 units Q12HR SQ 09/27/17 21:00 10/02/17 22:13 Levothyroxine Sodium (Synthroid) 25 mcg DAILY@0600 PO 09/28/17 06:00 10/02/17 05:58 Albumin Human 100 ml @ 60 mls/hr Q6HR IV 09/27/17 18:00 10/03/17 00:02 Linezolid (Zyvox) 600 mg Q12HR PO 09/28/17 14:15 10/05/17 14:14 10/02/17 22:10 Nicotine (Habitrol 7 Mg Patch.24 Hr) 1 patch DAILY T-DERMAL 09/30/17 09:00 10/02/17 09:52 Miscellaneous Information 1 DAILY T-DERMAL 09/30/17 09:00 10/02/17 09:00 Methylprednisolone Sodium Succinate (SoluMEDROL INJ) 40 mg DAILY IV PUSH 10/01/17 13:45 10/02/17 09:52 Lidocaine HCl (Lidoderm 5% Patch.12 Hr) 1 patch DAILY T-DERMAL 10/02/17 09:00 10/02/17 09:53 Miscellaneous Information 1 Q24H T-DERMAL 10/02/17 21:00 10/02/17 21:00 Temazepam (Restoril) 15 mg HS PRN PO INSOMNIA 10/02/17 21:00 10/02/17 22:10 Objective Remarks GENERAL: Well-nourished, well-developed patient. SKIN: Warm and dry. HEAD: Normocephalic. EYES: No scleral icterus. No injection or drainage. RESPIRATORY: No accessory muscle use. NEUROLOGICAL: No obvious focal deficit. Awake, alert, and oriented x3. Assessment/Plan Assessment 1. Coagulopathy: resolved, due to DIC due to sepsis, endocarditis. 2. Thrombocytopenia: improving, due to DIC, sepsis, endocarditis, hypersplenism. Continue to follow CBC 3. Anemia: component of inflammatory anemia. Transfuse for hemoglobin less than 7 4. Endocarditis, sepsis: currently on antibiotic therapy. ID team following closely. She has been evaluated by CT surgery team. 5. History of IVDA: counseled on abstinence. Maki Izquierdo MD Oct 03, 2017 00:12
[2017-10-03] MEDS: oxyCODONE/ACETAMINOPHEN 10 MG/325 MG TAB PO PRN ×3 (03:36→16:00)
[2017-10-03] MEDS: CHLORHEXIDINE GLUCONATE 2 % 1 PACK (2 CLOTHS) TOP SCH (03:37)
[2017-10-03] MEDS: hydrALAZINE HCL 100 MG TAB PO SCH ×3 (05:33→22:29)
[2017-10-03] MEDS: ISOSORBIDE DINITRATE 10 MG TAB PO SCH ×3 (05:33→22:29)
[2017-10-03] MEDS: LEVOTHYROXINE SODIUM 25 MCG TAB PO SCH (05:33)
[2017-10-03] MEDS: PROMETHAZINE INJ 25 MG/ML VIAL IM PRN (07:14)
[2017-10-03] MEDS: INSULIN ASPART SUPPLEMENTAL SCALE SQ SCH ×4 (08:00→21:00)
[2017-10-03] MEDS: MUPIROCIN 2% OINT 1 APPLIC/GM SYR EACH NARE SCH ×2 (09:00→22:29)
[2017-10-03] MEDS: DOCUSATE SODIUM 50 MG/SENNA 8.6 MG TAB PO SCH ×2 (09:00→22:29)
[2017-10-03] MEDS: levETIRAcetam INJ 500 MG in SODIUM CHLORIDE 0.9% INJ 100 ML IV SCH ×2 (09:27→22:29)
[2017-10-03] MEDS ORDERED: ALPRAZolam 0.5 MG TAB PO ONE (10:15)
[2017-10-03] MEDS: methylPREDNISolone SOD SUCC 40 MG/1 ML VIAL IV PUSH SCH (10:18)
[2017-10-03] MEDS: ceFAZolin 2 GM PREMIX 50 ML IV SCH ×2 (10:23→22:30)
[2017-10-03] MEDS: SODIUM CHLORIDE 0.9% FLUSH 10 ML FLUSH IV FLUSH SCH ×2 (10:46→22:30)
[2017-10-03] MEDS: BUMETANIDE 1 MG TAB PO SCH (10:46)
[2017-10-03] MEDS: amLODIPine BESYLATE 5 MG TAB PO SCH (10:46)
[2017-10-03] MEDS: MEGESTROL ACETATE 40 MG TAB PO SCH ×2 (10:47→22:29)
[2017-10-03] MEDS: METOPROLOL TARTRATE 25 MG TAB PO SCH ×2 (10:47→22:29)
[2017-10-03] MEDS: THIAMINE HCL 100 MG TAB PO SCH (10:47)
[2017-10-03] MEDS: LINEZOLID 600 MG TAB PO SCH ×2 (10:47→22:29)
[2017-10-03] MEDS: SPIRONOLACTONE 25 MG TAB PO SCH ×2 (10:47→17:56)
[2017-10-03] MEDS: PANTOPRAZOLE SOD 40 MG DELAYED RELEASE TAB PO SCH (10:47)
[2017-10-03] MEDS: CALCIUM ACETATE 667 MG CAP PO SCH ×3 (10:47→17:55)
--- NOTE | 2017-10-03 10:47 | HHI.IDPN ---
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 Patient also had another admission in July, and at that time her blood cultures grew methicillin sensitive staph aureus. She signed out AGAINST MEDICAL ADVICE again at that time. When she came in this time, her CBC showed pancytopenia. CT of the chest showed evidence of multiple pulmonary septic emboli. 2 blood cultures done are now showing staph aureus. She was also hypotensive, and also had an elevated creatinine. Her urine output has been low. CT of the head did not show any significant abnormality. CT of the abdomen and pelvis showed splenomegaly. Patient currently still lethargic, and moaning. She is complaining of pain throughout her whole body. She is on Celso-Synephrine. Infectious disease consultation has been requested to evaluate the patient. Notes reviewed Temps ok Anxious, SOB VQ scan ordered Good UO Creatinine improving Main issue is pain control Platelets stable No further seizure BP ok Her echo showed a large TV veg, with mod to severe TR and an AV veg with moderate AI Had abdominal tap, took out 2L fluid Antibiotics Ancef Current Medications Medications (Trade) Dose Ordered Sig/Amy Route Start Time Stop Time Status Last Admin (NS Flush) 2 ml UNSCH PRN IV FLUSH 09/16/17 17:00 10/01/17 00:56 (NS Flush) 2 ml BID IV FLUSH 09/16/17 21:00 10/02/17 21:00 (Albuterol Neb) 2.5 mg Q2HR NEB PRN INH 09/16/17 17:00 ([facility] [place] Nursing Information) 1 Q361D XX 09/16/17 17:00 09/16/17 20:22 (Chlorhexidine 2% Cloth) Taper DAILY@04 TOP 09/17/17 04:00 09/13/18 03:59 09/27/17 03:46 (Chlorhexidine 2% Cloth) 3 pack UNSCH PRN TOP 09/16/17 17:00 (Paula-Colace) 1 tab BID PO 09/16/17 21:00 10/02/17 22:11 (Milk Of Magnesia Liq) 30 ml Q12H PRN PO 5/20/18 17:00 09/19/17 11:19 (Senokot) 17.2 mg Q12H PRN PO 09/16/17 17:00 09/19/17 09:43 (Dulcolax Supp) 10 mg DAILY PRN RECTAL 09/16/17 17:00 09/19/17 11:20 (Lactulose Liq) 30 ml DAILY PRN PO 09/16/17 17:00 09/19/17 07:45 (Phenergan Inj) 25 mg Q6H PRN IM 09/16/17 17:00 10/03/17 07:14 (Percocet 10-325 Mg) 1 tab Q4H PRN PO 09/17/17 08:30 10/03/17 03:36 (Lopressor) 12.5 mg Q12HR PO 09/20/17 00:30 10/02/17 22:11 Cefazolin Sodium/ Dextrose 50 ml @ 100 mls/hr Q12H IV 09/24/17 10:00 10/02/17 22:12 (Norvasc) 10 mg DAILY PO 09/25/17 09:00 10/02/17 09:49 (Vitamin B1) 100 mg DAILY PO 09/25/17 09:00 10/02/17 09:49 (Phoslo) 1,334 mg TID PO 09/24/17 13:00 10/02/17 18:59 (Apresoline) 100 mg Q8HR PO 09/25/17 14:00 10/03/17 05:33 (Isordil) 10 mg Q8HR PO 09/25/17 14:00 10/03/17 05:33 (Megace) 40 mg Q12HR PO 09/25/17 10:30 10/02/17 22:13 (Aldactone) 25 mg BID@,18 PO 09/25/17 22:00 10/02/17 18:59 (Bumetanide) 1 mg BID@, PO 09/25/17 22:00 10/02/17 18:59 Levetriacetam 500 mg/Sodium Chloride 105 ml @ 420 mls/hr Q12HR IV 09/26/17 21:00 10/03/17 09:27 (D50w (Vial) Inj) 50 ml UNSCH PRN IV PUSH 09/26/17 09:30 (Glucagon Inj) 1 mg UNSCH PRN OTHER 09/26/17 09:30 (NovoLOG SUPPLEMENTAL SCALE) 1 ACHS SLIDING SCALE SQ 09/26/17 12:00 10/02/17 21:00 (Protonix) 40 mg DAILY PO 09/27/17 09:00 10/02/17 09:50 (Bactroban Nasal 2% Oint) Taper BID EACH NARE 09/26/17 21:00 09/22/18 20:59 10/02/17 22:13 (Heparin Inj) 5,000 units Q12HR SQ 09/27/17 21:00 10/02/17 22:13 (Synthroid) 25 mcg DAILY@0600 PO 09/28/17 06:00 10/03/17 05:33 Albumin Human 100 ml @ 60 mls/hr Q6HR IV 09/27/17 18:00 10/03/17 05:33 (Zyvox) 600 mg Q12HR PO 09/28/17 14:15 10/05/17 14:14 10/02/17 22:10 (Habitrol 7 Mg Patch.24 Hr) 1 patch DAILY T-DERMAL 09/30/17 09:00 10/02/17 09:52 Miscellaneous Information 1 DAILY T-DERMAL 09/30/17 09:00 10/02/17 09:00 (SoluMEDROL INJ) 40 mg DAILY IV PUSH 10/01/17 13:45 10/02/17 09:52 (Lidoderm 5% Patch.12 Hr) 1 patch DAILY T-DERMAL 10/02/17 09:00 10/02/17 09:53 Miscellaneous Information 1 Q24H T-DERMAL 10/02/17 21:00 10/02/17 21:00 (Restoril) 15 mg HS PRN PO 10/02/17 21:00 10/02/17 22:10 Lines Line no evidence of infection Past Medical History Hepatitis C Tricuspid valve endocarditis Group A strep sepsis MSSA sepsis Known active IV drug use Allergies: Coded Allergies: No Known Allergies (Unverified Allergy, Unknown, 08/13/17) Objective . Vital Signs Date Time Temp Pulse Resp B/P (MAP) Pulse Ox O2 Delivery O2 Flow Rate FiO2 10/03/17 08:02 97.3 101 17 157/87 (110) 95 6/6/18 04:36 97.4 91 18 145/84 (104) 96 10/03/17 04:13 99 10/03/17 01:07 18 10/02/17 23:56 98 10/02/17 23:50 98.1 102 18 137/81 (99) 93 10/02/17 22:15 Nasal Cannula 4.00 10/02/17 21:08 98.5 104 18 141/82 (101) 94 10/02/17 20:06 108 10/02/17 18:08 98.2 96 18 138/84 (102) 94 10/02/17 17:36 92 Nasal Cannula 3.00 10/02/17 12:08 98.0 101 17 152/95 (114) 92 10/02/17 12:00 94 . Laboratory Tests Test 10/01/17 14:15 10/02/17 06:15 Iron Level 34 MCG/DL Total Iron Binding Capacity 172 MCG/DL Percent Iron Saturation 19.7 % Blood Urea Nitrogen 64 MG/DL Creatinine 3.74 MG/DL Random Glucose 97 MG/DL Albumin 4.4 GM/DL Calcium Level 9.5 MG/DL Phosphorus Level 4.3 MG/DL Sodium Level 142 MEQ/L Potassium Level 4.3 MEQ/L Chloride Level 107 MEQ/L Carbon Dioxide Level 20.9 MEQ/L Anion Gap 14 MEQ/L Estimat Glomerular Filtration Rate 14 ML/MIN Imaging Last 72 hours Impressions Cyst Biopsy Asp-Paracentesis US 10/01/17 0000 Signed Impressions: CONCLUSION: Ultrasound-guided abdominal paracentesis as above. Last Impressions Chest X-Ray 09/16/17 1504 Signed Impressions: Service Date/Time: Saturday, September 16, 2017 15:28 - CONCLUSION: 1. Patchy bilateral lower lobe airspace disease, more prominent on the right. Findings are concerning for multilobar pneumonia or aspiration. Zenon Busch MD Head CT 09/16/17 0000 Signed Impressions: Service Date/Time: Saturday, September 16, 2017 17:56 - CONCLUSION: 1. No acute intracranial abnormality. 2. Left maxillary and sphenoid sinus mucosal disease. Zenon Busch MD Chest CT 09/16/17 0000 Signed Impressions: Service Date/Time: Saturday, September 16, 2017 18:04 - CONCLUSION: 1. Small bilateral pleural effusions with dense bilateral lower lobe airspace consolidation. 2. Numerous bilateral inflammatory pulmonary nodules including cavitary nodules in the apices bilaterally. Findings are consistent with septic emboli. Zenon Busch MD Abdomen/Pelvis CT 09/16/17 0000 Signed Impressions: Service Date/Time: Saturday, September 16, 2017 18:04 - CONCLUSION: 1. Limited examination due to paucity of peritoneal fat and patient's overlying arms. 2. Hepatosplenomegaly with small amount of ascites. 3. Small to moderate amount of colonic stool without evidence for bowel obstruction. Zenon Busch MD Physical Exam GENERAL: Awake and alert, anxious SKIN: Warm and dry. No generalized rash, no ecchymoses and no evidence of embolic lesions. HEAD: Atraumatic. Normocephalic. No temporal wasting, or tenderness. EYES: [place] conjunctiva. No petechia or hemorrhage. Pupils equal, round and reactive to light. Extraocular movements full and intact. No scleral icterus. No injection or drainage. EARS, NOSE AND THROAT: Nose without bleeding or purulent nasal discharge. No sinus tenderness. Very dry oral mucosa. NECK: Trachea midline. Supple, no meningeal signs CARDIOVASCULAR: Regular rate and rhythm. No murmurs, rubs or gallops heard RESPIRATORY: Clear to auscultation. Breath sounds equal bilaterally. No rales , wheezing or rhonchi. Decreased breath sounds at the bases ABDOMEN: Distended, with mild diffuse abdominal tenderness, tympanitic on percussion. Bowel sounds present and normoactive. : Dan cath in place, blood tinged urine EXTREMITIES: No clubbing, cyanosis. Has improving bilateral pedal edema. Has wound L leg with some slough, no surrounding cellulitis NEUROLOGICAL: Grossly non-focal PSYCHIATRIC: Cooperative LINE: No evidence of infection Assessment & Plan Remarks IMPRESSION Sepsis with shock, due to endocarditis - BP stable - has MOSF - previously had GAS, then MSSA - now MSSA MSSA endocarditis - echo with large TV veg and now also with AV veg Has pulmonary septic emboli Has UTI Renal failure, slightly better - has good UO - has hematuria, ?traumatic Pancytopenia, improving - thrombocytopenia improving Known very poor compliance to medical Rx DIC, better New SZ - MRI negative - MRI brain negative - no recurrent SZ (+) UC with VRE RECOMMENDATION Continue Ancef Zyvox x 7 days - follow CBC Progression of infection due to poor compliance to medical treatment Monitor progress She will need a course of IV antibiotics for her endocarditis Patient not surgical candidate per CTS ON trial of steroids for her renal failure Milana Harp MD Oct 03, 2017 10:47
[2017-10-03] MEDS: NICOTINE 7 MG/24 HR PATCH T-DERMAL SCH (10:48)
[2017-10-03] MEDS: REMOVE OLD PATCH T-DERMAL SCH (10:48)
[2017-10-03] MEDS: HEPARIN SODIUM - SQ 10,000 UNITS/ML VIAL SQ SCH (10:49)
[2017-10-03] MEDS: LIDOCAINE HCL 5% PATCH T-DERMAL SCH (10:49)
[2017-10-03] MEDS: REMOVE OLD LIDOCAINE PATCH T-DERMAL SCH (10:49)
[2017-10-03 11:16] LABS: AUTOMATED NEUTROPHIL # 7.2 TH/MM3 (1.8-7.7); BASOPHIL # 0.1 TH/MM3 (0-0.2); BASOPHIL % 0.6 % (0.0-2.0); EOSINOPHIL % 0.3 % (0.0-4.0); HEMOGLOBIN 7.7 GM/DL (11.6-15.3); LYMPH % 22.8 % (9.0-44.0); LYMPHOCYTE # 2.3 TH/MM3 (1.0-4.8); MEAN CELL VOLUME 90.8 FL (80.0-100.0); MEAN CORPUSCULAR HEMOGLOBIN 28.1 PG (27.0-34.0); MEAN PLATELET VOLUME 9.2 FL (7.0-11.0); MONOCYTE # 0.5 TH/MM3 (0-0.9); NEUT % 71.3 % (16.0-70.0); PLATELET COUNT 182 TH/MM3 (150-450); RED BLOOD COUNT 2.75 MIL/MM3 (4.00-5.30); RED CELL DISTRIBUTION WIDTH 22.6 % (11.6-17.2); WHITE BLOOD COUNT 10.2 TH/MM3 (4.0-11.0)
[2017-10-03 11:42] LABS: ALBUMIN 4.7 GM/DL (3.4-5.0); BICARBONATE 18.6 MEQ/L (21.0-32.0); CALCIUM 9.6 MG/DL (8.5-10.1); CREATININE 3.45 MG/DL (0.50-1.00); PHOSPHORUS 4.5 MG/DL (2.5-4.9)
--- NOTE | 2017-10-03 13:49 | RADRPT ---
EXAM DATE: 10/03/2017 1:11 PM EDT AGE/SEX: 37 years / Female INDICATIONS: Short of breath. CLINICAL DATA: This is the patient's initial encounter. Patient reports that signs and symptoms have been present for 1 day and indicates a pain score of 2/10. MEDICAL/SURGICAL HISTORY: HIV. Hepatitis C. Smoker. None. COMPARISON: [facility], CHEST SINGLE AP, 09/28/2017. . DOSE: 0.4 mCi Tc99m DTPA aerosol 8.1 mCi Tc99m MAA IV TECHNIQUE: Following five minutes of tidal breathing of DTPA aerosol, planar images of the lungs wer e performed in eight projections. The patient was then injected with MAA, and eight-view perfusion s can was performed. FINDINGS: There is central deposition on the ventilation images. Reduced count density seen within the peripher y of both lungs. The perfusion lung scan demonstrates several subsegmental photopenic defects within the peripheral as pects of the left upper lobe best appreciated on the [place] images. A subsegmental photopenic defect inv olving the right midlung anteriorly. CONCLUSION: 1. Intermediate probability for pulmonary embolus. Electronically signed by: Mario Hamilton MD 10/03/2017 1:48 PM EDT
[2017-10-03] MEDS ORDERED: ONDANSETRON ODT 4 MG TAB SL PRN (14:30)
--- NOTE | 2017-10-03 14:44 | HHI.NPPN ---
Subjective History of Present Illness Patient is a 37-year-old with IVDA and endocarditis with acute renal failure Additional Remarks Her clinical condition , not better had SOB Paracentesis 2 L yesterday Some improvement in renal function. Review of Systems General Constitutional: Fatigue Musculoskeletal MS: Pain/Stiffness Objective Data Data Vital Signs Date Time Temp Pulse Resp B/P (MAP) Pulse Ox O2 Delivery O2 Flow Rate FiO2 10/03/17 14:24 95 Nasal Cannula 6.00 10/03/17 12:02 97.6 92 28 140/82 (101) 91 10/03/17 11:00 Nasal Cannula 6.00 Humidified 10/03/17 08:02 97.3 101 17 157/87 (110) 95 10/03/17 08:00 90 10/03/17 07:00 Nasal Cannula 3.00 10/03/17 04:36 97.4 91 18 145/84 (104) 96 10/03/17 04:13 99 10/03/17 01:07 18 10/02/17 23:56 98 10/02/17 23:50 98.1 102 18 137/81 (99) 93 10/02/17 22:15 Nasal Cannula 4.00 10/02/17 21:08 98.5 104 18 141/82 (101) 94 10/02/17 20:06 108 10/02/17 18:08 98.2 96 18 138/84 (102) 94 10/02/17 17:36 92 Nasal Cannula 3.00 -: 10/03/17 1034 10/03/17 1034 Physical Exam General Appearance: No Acute Distress, Pale, Anxious Neck Neck Exam: Neck Supple Pulmonary Resp Exam: Decreased Bases Cardiology CV Exam: Regular, Murmur Gastrointestinal/Abdomen GI Exam: Soft, Non-Tender, Distended, Bowel Sounds Hypoactive Integumentary Skin Exam: Ulcer(s) Extremeties Extremities Exam: Moderate Edema Neurologic Neuro Exam: Alert, Awake, Oriented Assessment/Plan Problem List: (1) Acute renal failure ICD Codes: N17.9 - Acute kidney failure, unspecified Plan: This is likely due to underlying endocarditis and severe infection, post infectious GN. . 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 [place]? Check REJI/ANCA/HIV/cryoglobulin unfortunately she has Endocarditis and Cr high for angiogram C3 low on Solumedrol 40 mg IV cr declined 3.4 responding UOP 3.7 L on Aldactone/bumex will stop Albumin change to Lasix 40 mg bid and Bumex to can be dc Monitor for electrolytes abnormalities. follow ANCA/REJI/Cryoglobulin (2) Endocarditis ICD Codes: I38 - Endocarditis, valve unspecified Status: Acute Plan: Due to IVDA Vegetation on Tricuspid valve and also Aortic valve. Not a candidate for surgery per CTS. ID following. (3) Severe sepsis ICD Codes: A41.9 - Sepsis, unspecified organism; R65.20 - Severe sepsis without septic shock Status: Acute Plan: Staph aureus septicemia Azalea Gillette MD Oct 03, 2017 14:44
[2017-10-03] MEDS ORDERED: PILL SPLITTER OTHER PRN (15:00)
--- NOTE | 2017-10-03 15:01 | RADRPT ---
EXAM DATE: 10/03/2017 2:53 PM EDT AGE/SEX: 37 years / Female INDICATIONS: Shortness of breath and chest pain starting today. CLINICAL DATA: This is the patient's initial encounter. Patient reports that signs and symptoms have been present for 1 day and indicates a pain score of 3/10. MEDICAL/SURGICAL HISTORY: None. None. COMPARISON: [facility] [place], CHEST SINGLE AP, 09/28/2017. . FINDINGS: Portable AP view of the chest demonstrates a normal-sized cardiac silhouette. There are stable bibasi lar pleural-parenchymal opacities. No pneumothorax is identified. The bones and soft tissues demonstr ate no acute finding. CONCLUSION: Stable bibasilar opacities representing pleural effusions with associated volume loss and/or airspace consolidation. Electronically signed by: Ray Mejia MD 10/03/2017 2:59 PM EDT
--- NOTE | 2017-10-03 16:56 | HHI.PR ---
Subjective Remarks Patient was in respiratory distress this morning, she states that her abdomen is causing her shortness of breath. Objective Vitals Vital Signs Date Time Temp Pulse Resp B/P (MAP) Pulse Ox O2 Delivery O2 Flow Rate FiO2 10/03/17 16:00 105 10/03/17 15:00 Nasal Cannula 6.00 Humidified 10/03/17 14:24 95 Nasal Cannula 6.00 10/03/17 12:02 97.6 92 28 140/82 (101) 91 10/03/17 12:00 97 10/03/17 11:00 Nasal Cannula 6.00 Humidified 10/03/17 08:02 97.3 101 17 157/87 (110) 95 10/03/17 08:00 90 10/03/17 07:00 Nasal Cannula 3.00 10/03/17 04:36 97.4 91 18 145/84 (104) 96 10/03/17 04:13 99 10/03/17 01:07 18 10/02/17 23:56 98 10/02/17 23:50 98.1 102 18 137/81 (99) 93 10/02/17 22:15 Nasal Cannula 4.00 10/02/17 21:08 98.5 104 18 141/82 (101) 94 10/02/17 20:06 108 10/02/17 18:08 98.2 96 18 138/84 (102) 94 10/02/17 17:36 92 Nasal Cannula 3.00 I/O 10/02/17 10/02/17 10/02/17 10/03/17 10/03/17 10/03/17 07:00 15:00 23:00 07:00 15:00 23:00 Intake Total 200 ml 100 ml 380 ml 330 ml Output Total 1150 ml 2600 ml 1100 ml Balance -950 ml 100 ml -2220 ml -770 ml Intake Oral 380 ml 330 ml IV Total 200 ml 100 ml Output Urine Total 1150 ml 2600 ml 1100 ml # Bowel Movements 0 0 Result Diagram: 10/03/17 1034 10/03/17 1034 Objective Remarks GENERAL: Uncomfortable appearing patient, appears older than stated age SKIN: Warm and dry. HEAD: Normocephalic. EYES: No scleral icterus. No injection or drainage. NECK: Supple, trachea midline. No JVD or lymphadenopathy. CARDIOVASCULAR: Sinus tachycardia without murmurs, gallops, or rubs. RESPIRATORY: Diminished bases, clear otherwise, tachypnea. No accessory muscle use. GASTROINTESTINAL: Abdomen round, mildly tender, fluid-filled, nonacute EXTREMITIES: No cyanosis, or edema. NEUROLOGICAL: Awake, alert, and oriented x 3. Non-focal. A/P Problem List: (1) Endocarditis ICD Code: I38 - Endocarditis, valve unspecified Status: Acute (2) Septic pulmonary embolism ICD Code: I26.90 - Septic pulmonary embolism without acute cor pulmonale Status: Acute Assessment and Plan 37-year-old female admitted with Severe Sepsis with shock and organ failure related to 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 Septic pulmonary emboli Tricuspid valve vegetation with severe tricuspid regurg MSSA endocarditis Right lower leg abscess (septic emboli) continue linezolid and cefazolin Appreciate infectious disease consult Respiratory distress Patient has elevated d-dimer, tachypnea, oxygen saturations at 91 baseline VQ scan shows intermediate probability Patient had paracentesis yesterday which did not improve her shortness of breath Consider infectious emboli versus thrombosis Lovenox at therapeutic doses for pulmonary embolism (renally adjusted, pharmacy to follow) Heparin held Anxiety and panic attacks Exacerbated by dyspnea, responding well to Xanax Gross hematuria and microscopic pyuria Urine culture is negative Nephrology feels hematuria could be related to postinfectious glomerulonephritis (strep versus hep C). Noncontrast ct abd negative Acute on chronic kidney injury Creatinine slowly improving Anemia Iron studies consistent with anemia of chronic disease Mild hematuria present Daily CBC, transfuse if < 7.0 Acute encephalopathy, Narcotic Withdraw Continue on Percocet 10/325 mg p.o. every 4 hourly as needed for pain/withdraw Abdominal distention/ascites Secondary to heart failure as LFTs wnl CT abd with stable hepatosplenomegaly S/p paracentesis 09/25 with 1.4L removed and 10/01 with 2L removed May need repeat paracentesis during hospitalization Severe sepsis with multiorgan failure Acute Renal Failure, cardiorenal syndrome Diastolic CHF secondary to valvulopathy. Pulmonary hypertension Following creatinine Appreciate nephrology following DVT Prophylaxis Acute onset of dyspnea, heparin held, Lovenox replaced for treatment of probable pulmonary embolism Navdeep Zarate MD Oct 03, 2017 16:56
[2017-10-03] MEDS ORDERED: FUROSEMIDE 40 MG/4 ML VIAL IV PUSH ONE (17:30)
[2017-10-03] MEDS: FUROSEMIDE 40 MG/4 ML VIAL IV PUSH SCH (17:55)
[2017-10-03] MEDS: ENOXAPARIN SODIUM 60 MG/0.6 ML SYRINGE SQ SCH (17:55)
[2017-10-03] MEDS ORDERED: BUMETANIDE 1 MG TAB PO SCH (18:00)
[2017-10-03] MEDS: ALPRAZolam 0.5 MG TAB PO PRN (23:21)
[2017-10-04] VITALS (15 sets, daily range): BP systolic 124–142; BP diastolic 66–84; PULSE 91–102; RESP 17–20; TEMP 97.5–99; O2SAT 93–97
[2017-10-04] MEDS: oxyCODONE/ACETAMINOPHEN 10 MG/325 MG TAB PO PRN ×4 (02:57→21:22)
[2017-10-04] MEDS: CHLORHEXIDINE GLUCONATE 2 % 1 PACK (2 CLOTHS) TOP SCH (03:35)
[2017-10-04] MEDS: LEVOTHYROXINE SODIUM 25 MCG TAB PO SCH (05:47)
[2017-10-04] MEDS: hydrALAZINE HCL 100 MG TAB PO SCH ×3 (05:47→21:23)
[2017-10-04] MEDS: ISOSORBIDE DINITRATE 10 MG TAB PO SCH ×3 (05:47→21:22)
[2017-10-04] MEDS: ENOXAPARIN SODIUM 60 MG/0.6 ML SYRINGE SQ SCH ×2 (05:47→18:19)
[2017-10-04 06:47] LABS: BICARBONATE 16.3 MEQ/L (21.0-32.0); CALCIUM 9.3 MG/DL (8.5-10.1); CREATININE 3.31 MG/DL (0.50-1.00)
[2017-10-04] MEDS: INSULIN ASPART SUPPLEMENTAL SCALE SQ SCH ×4 (08:00→21:25)
[2017-10-04] MEDS: DOCUSATE SODIUM 50 MG/SENNA 8.6 MG TAB PO SCH ×2 (09:00→21:22)
[2017-10-04] MEDS: MUPIROCIN 2% OINT 1 APPLIC/GM SYR EACH NARE SCH ×2 (09:00→21:24)
[2017-10-04] MEDS: ALPRAZolam 0.5 MG TAB PO PRN ×4 (09:36→21:52)
[2017-10-04] MEDS: amLODIPine BESYLATE 5 MG TAB PO SCH (09:38)
[2017-10-04] MEDS: NICOTINE 7 MG/24 HR PATCH T-DERMAL SCH (09:38)
[2017-10-04] MEDS: FUROSEMIDE 40 MG/4 ML VIAL IV PUSH SCH ×2 (09:38→18:19)
[2017-10-04] MEDS: REMOVE OLD PATCH T-DERMAL SCH (09:38)
[2017-10-04] MEDS: methylPREDNISolone SOD SUCC 40 MG/1 ML VIAL IV PUSH SCH (09:39)
[2017-10-04] MEDS: SODIUM CHLORIDE 0.9% FLUSH 10 ML FLUSH IV FLUSH SCH ×2 (09:39→21:24)
[2017-10-04] MEDS: levETIRAcetam INJ 500 MG in SODIUM CHLORIDE 0.9% INJ 100 ML IV SCH ×2 (09:39→23:12)
[2017-10-04] MEDS: CALCIUM ACETATE 667 MG CAP PO SCH ×3 (09:39→18:19)
[2017-10-04] MEDS: SPIRONOLACTONE 25 MG TAB PO SCH ×2 (09:39→18:19)
[2017-10-04] MEDS: LINEZOLID 600 MG TAB PO SCH ×2 (09:40→21:22)
[2017-10-04] MEDS: THIAMINE HCL 100 MG TAB PO SCH (09:40)
[2017-10-04] MEDS: PANTOPRAZOLE SOD 40 MG DELAYED RELEASE TAB PO SCH (09:40)
[2017-10-04] MEDS: MEGESTROL ACETATE 40 MG TAB PO SCH ×2 (09:40→21:23)
[2017-10-04] MEDS: METOPROLOL TARTRATE 25 MG TAB PO SCH ×2 (09:41→21:23)
[2017-10-04] MEDS: ceFAZolin 2 GM PREMIX 50 ML IV SCH ×2 (10:14→21:21)
[2017-10-04] MEDS: REMOVE OLD LIDOCAINE PATCH T-DERMAL SCH (10:15)
[2017-10-04] MEDS: LIDOCAINE HCL 5% PATCH T-DERMAL SCH (10:15)
[2017-10-04 13:43] LABS: INTERNATIONAL NORMALIZED RATIO 1.4 RATIO
--- NOTE | 2017-10-04 14:51 | HHI.NPPN ---
Subjective History of Present Illness Patient is a 37-year-old with IVDA and endocarditis with acute renal failure Additional Remarks Her clinical condition , not better had SOB Paracentesis 2 L yesterday Some improvement in renal function. Review of Systems General Constitutional: Fatigue Musculoskeletal MS: Pain/Stiffness Objective Data Data Vital Signs Date Time Temp Pulse Resp B/P (MAP) Pulse Ox O2 Delivery O2 Flow Rate FiO2 10/04/17 14:03 Nasal Cannula 5.00 10/04/17 14:03 94 Nasal Cannula 6.00 10/04/17 12:02 98.7 94 18 135/72 (93) 93 10/04/17 12:00 91 10/04/17 08:02 99.0 96 17 142/81 (101) 94 10/04/17 08:00 91 10/04/17 07:00 Nasal Cannula 6.00 10/04/17 04:02 93 10/04/17 04:00 97.5 96 19 124/66 (85) 93 10/04/17 00:02 98 10/04/17 00:00 98.0 96 20 132/84 (100) 94 10/03/17 21:00 Nasal Cannula 4.00 10/03/17 20:00 97.3 99 20 139/84 (102) 96 10/03/17 20:00 99 10/03/17 17:47 95 Nasal Cannula 6.00 10/03/17 16:00 105 10/03/17 15:50 98.0 105 20 142/91 (108) 97 10/03/17 15:00 Nasal Cannula 6.00 Humidified -: 10/03/17 1034 10/04/17 0518 Physical Exam General Appearance: No Acute Distress, Pale, Anxious Neck Neck Exam: Neck Supple Pulmonary Resp Exam: Decreased Bases Cardiology CV Exam: Regular, Murmur Gastrointestinal/Abdomen GI Exam: Soft, Non-Tender, Distended, Bowel Sounds Hypoactive Integumentary Skin Exam: Ulcer(s) Extremeties Extremities Exam: Moderate Edema Neurologic Neuro Exam: Alert, Awake, Oriented Assessment/Plan Problem List: (1) Acute renal failure ICD Codes: N17.9 - Acute kidney failure, unspecified Plan: This is likely due to underlying endocarditis and severe infection, post infectious GN. . 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 GILLESPIE? Check REJI/ANCA/HIV/cryoglobulin unfortunately she has Endocarditis and Cr high for angiogram C3 low on Solumedrol 40 mg IV cr declined 3.31 responding UOP 3.2 L on Aldactone/ Lasix 40 mg bid Monitor for electrolytes abnormalities. Negative ANCA/REJI/ Pending cryoglobulin (2) Endocarditis ICD Codes: I38 - Endocarditis, valve unspecified Status: Acute Plan: Due to IVDA Vegetation on Tricuspid valve and also Aortic valve. Not a candidate for surgery per CTS. ID following. (3) Severe sepsis ICD Codes: A41.9 - Sepsis, unspecified organism; R65.20 - Severe sepsis without septic shock Status: Acute Plan: Staph aureus septicemia Azalea Gillette MD Oct 04, 2017 14:51
--- NOTE | 2017-10-04 14:52 | HHI.PR ---
Subjective Remarks Patient appears more comfortable today, her mother is at bedside while she sleeps. She awoke during my visit and proceeded to complain of abdominal pain and pressure related to her ascites. Objective Vitals Vital Signs Date Time Temp Pulse Resp B/P (MAP) Pulse Ox O2 Delivery O2 Flow Rate FiO2 10/04/17 14:03 Nasal Cannula 5.00 10/04/17 14:03 94 Nasal Cannula 6.00 10/04/17 12:02 98.7 94 18 135/72 (93) 93 10/04/17 12:00 91 10/04/17 08:02 99.0 96 17 142/81 (101) 94 10/04/17 08:00 91 10/04/17 07:00 Nasal Cannula 6.00 10/04/17 04:02 93 10/04/17 04:00 97.5 96 19 124/66 (85) 93 10/04/17 00:02 98 10/04/17 00:00 98.0 96 20 132/84 (100) 94 10/03/17 21:00 Nasal Cannula 4.00 10/03/17 20:00 97.3 99 20 139/84 (102) 96 10/03/17 20:00 99 10/03/17 17:47 95 Nasal Cannula 6.00 10/03/17 16:00 105 10/03/17 15:50 98.0 105 20 142/91 (108) 97 10/03/17 15:00 Nasal Cannula 6.00 Humidified I/O 10/03/17 10/03/17 10/03/17 10/04/17 10/04/17 10/04/17 06:59 14:59 22:59 06:59 14:59 22:59 Intake Total 330 ml 255 ml 795 ml 402 ml Output Total 1100 ml 1650 ml 1600 ml Balance -770 ml 255 ml -855 ml -1198 ml Intake Oral 330 ml 540 ml 402 ml IV Total 255 ml 255 ml Output Urine Total 1100 ml 1650 ml 1600 ml # Bowel Movements 0 0 Result Diagram: 10/03/17 1034 10/04/17 0518 Objective Remarks GENERAL: appears older than stated age SKIN: Warm and dry. HEAD: Normocephalic. EYES: No scleral icterus. No injection or drainage. NECK: Supple, trachea midline. No JVD or lymphadenopathy. CARDIOVASCULAR: Sinus tachycardia without murmurs, gallops, or rubs. RESPIRATORY: Diminished bases, clear otherwise. No accessory muscle use. GASTROINTESTINAL: Abdomen round, mildly tender, fluid-filled, nonacute EXTREMITIES: No cyanosis, or edema. NEUROLOGICAL: Awake, alert, and oriented x 3. Non-focal. A/P Problem List: (1) Endocarditis ICD Code: I38 - Endocarditis, valve unspecified Status: Acute (2) Septic pulmonary embolism ICD Code: I26.90 - Septic pulmonary embolism without acute cor pulmonale Status: Acute Assessment and Plan 37-year-old female admitted with Severe Sepsis with shock and organ failure related to 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 Septic pulmonary emboli Tricuspid valve vegetation with severe tricuspid regurg , MSSA endocarditis Right lower leg abscess (septic emboli) continue linezolid and cefazolin Appreciate infectious disease consult Respiratory distress VQ scan shows intermediate probability, d-dimer was 12 Patient was started on therapeutic dose of Lovenox (renally dosed) to cover for probable pulmonary embolism 40 mg of IV Lasix was also given in addition to her baseline dosing Breathing is more comfortable today, saturations are at 94% ( improved from 91%) Anxiety and panic attacks Responding well to Xanax Gross hematuria and microscopic pyuria Nephrology feels hematuria could be related to postinfectious glomerulonephritis (strep versus hep C). Noncontrast ct abd negative Urine culture is negative Acute on chronic kidney injury Creatinine slowly improving Follow with a.m. labs Anemia Iron studies consistent with anemia of chronic disease Mild hematuria present Daily CBC, transfuse if < 7.0 Acute encephalopathy, Narcotic Withdraw Continue on Percocet 10/325 mg p.o. every 4 hourly as needed for pain/withdraw Abdominal distention/ascites Secondary to heart failure as LFTs wnl CT abd with stable hepatosplenomegaly S/p paracentesis 09/25 with 1.4L removed and 10/01 with 2L removed Paracentesis requested again for today, patient is uncomfortable again, abdomen tight Severe sepsis with multiorgan failure Acute Renal Failure, cardiorenal syndrome Diastolic CHF secondary to valvulopathy. Pulmonary hypertension Following creatinine Appreciate nephrology following DVT Prophylaxis Therapeutic Lovenox for coverage of probable pulmonary embolism Navdeep Zarate MD Oct 04, 2017 14:52
--- NOTE | 2017-10-04 16:13 | RADRPT ---
EXAM DATE: 10/04/2017 4:08 PM EDT AGE/SEX: 37 years / Female INDICATIONS: Ascites. Evaluate for paracentesis. CLINICAL DATA: This is the patient's initial encounter. Patient reports that signs and symptoms have been present for 1 day and indicates a pain score of 5/10. MEDICAL/SURGICAL HISTORY: . Hepatitis C. HIV. Pancreatitis. Seizures. Pulmonary embolism. . Pa racentesis. COMPARISON: [facility] [place], CT ABDOMEN & PELVIS W/O CONTRAST, 09/30/2017. . FINDINGS: Grayscale and Doppler ultrasound imaging of all 4 quadrants was performed to evaluate for possible pa racentesis. There is a small volume of free fluid in the midline pelvis and in the 4 quadrants. Howev er, not enough fluid is present for safe paracentesis. CONCLUSION: There is a small volume of free fluid identified but there is a not a large enough localized collecti on for safe paracentesis. Electronically signed by: Ray Mejia MD 10/04/2017 4:12 PM EDT
[2017-10-05] VITALS (12 sets, daily range): BP systolic 126–138; BP diastolic 67–78; PULSE 90–102; RESP 17–20; TEMP 98.1–98.5; O2SAT 94–98
[2017-10-05] MEDS: CHLORHEXIDINE GLUCONATE 2 % 1 PACK (2 CLOTHS) TOP SCH (03:40)
[2017-10-05] MEDS: ALPRAZolam 0.5 MG TAB PO PRN ×2 (04:34→20:03)
[2017-10-05] MEDS: oxyCODONE/ACETAMINOPHEN 10 MG/325 MG TAB PO PRN ×4 (04:34→22:04)
[2017-10-05] MEDS: ENOXAPARIN SODIUM 60 MG/0.6 ML SYRINGE SQ SCH (06:00)
[2017-10-05] MEDS: hydrALAZINE HCL 100 MG TAB PO SCH ×3 (06:00→22:04)
[2017-10-05] MEDS: LEVOTHYROXINE SODIUM 25 MCG TAB PO SCH (06:00)
[2017-10-05] MEDS: ISOSORBIDE DINITRATE 10 MG TAB PO SCH ×3 (06:00→22:04)
[2017-10-05 06:14] LABS: AUTOMATED NEUTROPHIL # 4.6 TH/MM3 (1.8-7.7); BASOPHIL % 0.3 % (0.0-2.0); EOSINOPHIL % 0.3 % (0.0-4.0); HEMOGLOBIN 7.6 GM/DL (11.6-15.3); LYMPH % 26.1 % (9.0-44.0); LYMPHOCYTE # 1.8 TH/MM3 (1.0-4.8); MEAN CELL VOLUME 86.3 FL (80.0-100.0); MEAN CORPUSCULAR HEMOGLOBIN 28.6 PG (27.0-34.0); MEAN CORPUSCULAR HGB CONC 33.1 % (32.0-36.0); MONOCYTE # 0.4 TH/MM3 (0-0.9); NEUT % 67.3 % (16.0-70.0); PLATELET COUNT 144 TH/MM3 (150-450); RED BLOOD COUNT 2.66 MIL/MM3 (4.00-5.30); WHITE BLOOD COUNT 6.9 TH/MM3 (4.0-11.0)
[2017-10-05 06:41] LABS: CALCIUM 9.1 MG/DL (8.5-10.1); CREATININE 3.05 MG/DL (0.50-1.00)
[2017-10-05] MEDS: INSULIN ASPART SUPPLEMENTAL SCALE SQ SCH ×4 (08:00→22:07)
[2017-10-05] MEDS: LINEZOLID 600 MG TAB PO SCH (08:28)
[2017-10-05] MEDS: amLODIPine BESYLATE 5 MG TAB PO SCH (08:28)
[2017-10-05] MEDS: NICOTINE 7 MG/24 HR PATCH T-DERMAL SCH (08:28)
[2017-10-05] MEDS: THIAMINE HCL 100 MG TAB PO SCH (08:28)
[2017-10-05] MEDS: METOPROLOL TARTRATE 25 MG TAB PO SCH ×2 (08:28→22:05)
[2017-10-05] MEDS: DOCUSATE SODIUM 50 MG/SENNA 8.6 MG TAB PO SCH ×2 (08:28→22:04)
[2017-10-05] MEDS: methylPREDNISolone SOD SUCC 40 MG/1 ML VIAL IV PUSH SCH (08:28)
[2017-10-05] MEDS: REMOVE OLD PATCH T-DERMAL SCH (08:28)
[2017-10-05] MEDS: CALCIUM ACETATE 667 MG CAP PO SCH ×3 (08:28→17:14)
[2017-10-05] MEDS: PANTOPRAZOLE SOD 40 MG DELAYED RELEASE TAB PO SCH (08:29)
[2017-10-05] MEDS: SPIRONOLACTONE 25 MG TAB PO SCH ×2 (08:29→17:14)
[2017-10-05] MEDS: SODIUM CHLORIDE 0.9% FLUSH 10 ML FLUSH IV FLUSH SCH ×2 (08:30→22:08)
[2017-10-05] MEDS: levETIRAcetam INJ 500 MG in SODIUM CHLORIDE 0.9% INJ 100 ML IV SCH ×2 (08:30→22:04)
[2017-10-05] MEDS: MUPIROCIN 2% OINT 1 APPLIC/GM SYR EACH NARE SCH ×2 (08:30→21:00)
[2017-10-05] MEDS: FUROSEMIDE 40 MG/4 ML VIAL IV PUSH SCH ×2 (08:30→17:14)
[2017-10-05] MEDS: ceFAZolin 2 GM PREMIX 50 ML IV SCH ×2 (08:31→22:04)
[2017-10-05] MEDS: MEGESTROL ACETATE 40 MG TAB PO SCH ×2 (08:31→22:05)
[2017-10-05] MEDS: LIDOCAINE HCL 5% PATCH T-DERMAL SCH (08:43)
--- NOTE | 2017-10-05 09:19 | HHI.IDPN ---
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 Patient also had another admission in July, and at that time her blood cultures grew methicillin sensitive staph aureus. She signed out AGAINST MEDICAL ADVICE again at that time. When she came in this time, her CBC showed pancytopenia. CT of the chest showed evidence of multiple pulmonary septic emboli. 2 blood cultures done are now showing staph aureus. She was also hypotensive, and also had an elevated creatinine. Her urine output has been low. CT of the head did not show any significant abnormality. CT of the abdomen and pelvis showed splenomegaly. Patient currently still lethargic, and moaning. She is complaining of pain throughout her whole body. She is on Celso-Synephrine. Infectious disease consultation has been requested to evaluate the patient. Notes reviewed Temps ok Comfortable US with ascites, not enough to tap Good UO Creatinine improving BP ok Her echo showed a large TV veg, with mod to severe TR and an AV veg with moderate AI Antibiotics Ancef Current Medications Medications (Trade) Dose Ordered Sig/Amy Route Start Time Stop Time Status Last Admin (NS Flush) 2 ml UNSCH PRN IV FLUSH 09/16/17 17:00 10/01/17 00:56 (NS Flush) 2 ml BID IV FLUSH 09/16/17 21:00 10/05/17 08:30 (Albuterol Neb) 2.5 mg Q2HR NEB PRN INH 09/16/17 17:00 ([facility] [place] Nursing Information) 1 Q361D XX 09/16/17 17:00 09/16/17 20:22 (Chlorhexidine 2% Cloth) Taper DAILY@04 TOP 09/17/17 04:00 09/13/18 03:59 09/27/17 03:46 (Chlorhexidine 2% Cloth) 3 pack UNSCH PRN TOP 09/16/17 17:00 (Paula-Colace) 1 tab BID PO 09/16/17 21:00 10/05/17 08:28 (Milk Of Magnesia Liq) 30 ml Q12H PRN PO 09/16/17 17:00 09/19/17 11:19 (Senokot) 17.2 mg Q12H PRN PO 09/16/17 17:00 09/19/17 09:43 (Dulcolax Supp) 10 mg DAILY PRN RECTAL 09/16/17 17:00 09/19/17 11:20 (Lactulose Liq) 30 ml DAILY PRN PO 09/16/17 17:00 09/19/17 07:45 (Phenergan Inj) 25 mg Q6H PRN IM 09/16/17 17:00 10/03/17 07:14 (Percocet 10-325 Mg) 1 tab Q4H PRN PO 09/17/17 08:30 10/05/17 08:29 (Lopressor) 12.5 mg Q12HR PO 09/20/17 00:30 10/05/17 08:28 Cefazolin Sodium/ Dextrose 50 ml @ 100 mls/hr Q12H IV 09/24/17 10:00 10/05/17 08:31 (Norvasc) 10 mg DAILY PO 09/25/17 09:00 10/05/17 08:28 (Vitamin B1) 100 mg DAILY PO 09/25/17 09:00 10/05/17 08:28 (Phoslo) 1,334 mg TID PO 09/24/17 13:00 10/05/17 08:28 (Apresoline) 100 mg Q8HR PO 09/25/17 14:00 10/05/17 06:00 (Isordil) 10 mg Q8HR PO 09/25/17 14:00 10/05/17 06:00 (Megace) 40 mg Q12HR PO 09/25/17 10:30 10/05/17 08:31 (Aldactone) 25 mg BID@09,18 PO 09/25/17 22:00 10/05/17 08:29 Levetriacetam 500 mg/Sodium Chloride 105 ml @ 420 mls/hr Q12HR IV 09/26/17 21:00 10/05/17 08:30 (D50w (Vial) Inj) 50 ml UNSCH PRN IV PUSH 09/26/17 09:30 (Glucagon Inj) 1 mg UNSCH PRN OTHER 09/26/17 09:30 (NovoLOG SUPPLEMENTAL SCALE) 1 ACHS SLIDING SCALE SQ 09/26/17 12:00 10/04/17 21:25 (Protonix) 40 mg DAILY PO 09/27/17 09:00 10/05/17 08:29 (Bactroban Nasal 2% Oint) Taper BID EACH NARE 09/26/17 21:00 09/22/18 20:59 10/05/17 08:30 (Synthroid) 25 mcg DAILY@0600 PO 09/28/17 06:00 10/05/17 06:00 (Zyvox) 600 mg Q12HR PO 09/28/17 14:15 10/05/17 14:14 10/05/17 08:28 (Habitrol 7 Mg Patch.24 Hr) 1 patch DAILY T-DERMAL 09/30/17 09:00 10/05/17 08:28 Miscellaneous Information 1 DAILY T-DERMAL 09/30/17 09:00 10/05/17 08:28 (SoluMEDROL INJ) 40 mg DAILY IV PUSH 10/01/17 13:45 10/05/17 08:28 (Lidoderm 5% Patch.12 Hr) 1 patch DAILY T-DERMAL 10/02/17 09:00 10/05/17 08:43 Miscellaneous Information 1 Q24H T-DERMAL 10/02/17 21:00 10/04/17 10:15 (Restoril) 15 mg HS PRN PO 10/02/17 21:00 10/02/17 22:10 (Zofran Odt) 4 mg Q6HR PRN SL 10/03/17 14:30 (Xanax) 0.5 mg Q6H PRN PO 10/03/17 14:45 10/05/17 04:34 (Pill Splitter) 1 ea UNSCH PRN OTHER 10/03/17 15:00 (Lasix Inj) 40 mg BID@ IV PUSH 10/03/17 18:00 10/05/17 08:30 (Lovenox Inj) 60 mg Q12H SQ 10/03/17 18:00 10/05/17 06:00 Lines Line no evidence of infection Past Medical History Hepatitis C Tricuspid valve endocarditis Group A strep sepsis MSSA sepsis Known active IV drug use Allergies: Coded Allergies: No Known Allergies (Unverified Allergy, Unknown, 08/13/17) Objective . Vital Signs Date Time Temp Pulse Resp B/P (MAP) Pulse Ox O2 Delivery O2 Flow Rate FiO2 10/05/17 08:02 98.4 90 17 130/67 (88) 97 10/05/17 04:00 98.1 92 20 138/75 (96) 97 10/05/17 03:46 93 10/05/17 00:00 98.5 95 20 135/78 (97) 96 10/04/17 23:57 93 10/04/17 23:57 Nasal Cannula 4.50 10/04/17 20:00 97.6 96 20 136/76 (96) 97 10/04/17 20:00 Nasal Cannula 4.50 10/04/17 19:53 98 10/04/17 19:40 96 Nasal Cannula 4.50 10/04/17 16:02 98.6 102 17 139/73 (95) 94 10/04/17 16:00 101 10/04/17 14:03 Nasal Cannula 5.00 10/04/17 14:03 94 Nasal Cannula 6.00 10/04/17 12:02 98.7 94 18 135/72 (93) 93 10/04/17 12:00 91 . Laboratory Tests Test 10/03/17 10:34 10/05/17 05:28 White Blood Count 10.2 TH/MM3 6.9 TH/MM3 Red Blood Count 2.75 MIL/MM3 2.66 MIL/MM3 Hemoglobin 7.7 GM/DL 7.6 GM/DL Hematocrit 25.0 % 23.0 % Mean Corpuscular Volume 90.8 FL 86.3 FL Mean Corpuscular Hemoglobin 28.1 PG 28.6 PG Mean Corpuscular Hemoglobin Concent 31.0 % 33.1 % Red Cell Distribution Width 22.6 % 21.0 % Platelet Count 182 TH/MM3 144 TH/MM3 Mean Platelet Volume 9.2 FL 9.0 FL Neutrophils (%) (Auto) 71.3 % 67.3 % Lymphocytes (%) (Auto) 22.8 % 26.1 % Monocytes (%) (Auto) 5.0 % 6.0 % Eosinophils (%) (Auto) 0.3 % 0.3 % Basophils (%) (Auto) 0.6 % 0.3 % Neutrophils # (Auto) 7.2 TH/MM3 4.6 TH/MM3 Lymphocytes # (Auto) 2.3 TH/MM3 1.8 TH/MM3 Monocytes # (Auto) 0.5 TH/MM3 0.4 TH/MM3 Eosinophils # (Auto) 0.0 TH/MM3 0.0 TH/MM3 Basophils # (Auto) 0.1 TH/MM3 0.0 TH/MM3 CBC Comment DIFF FINAL DIFF FINAL Differential Comment Laboratory Tests Test 10/03/17 10:34 10/04/17 05:18 10/05/17 05:28 Blood Urea Nitrogen 76 MG/DL 84 MG/DL 86 MG/DL Creatinine 3.45 MG/DL 3.31 MG/DL 3.05 MG/DL Random Glucose 83 MG/DL 86 MG/DL 89 MG/DL Albumin 4.7 GM/DL Calcium Level 9.6 MG/DL 9.3 MG/DL 9.1 MG/DL Phosphorus Level 4.5 MG/DL Sodium Level 141 MEQ/L 139 MEQ/L 140 MEQ/L Potassium Level 3.8 MEQ/L 4.2 MEQ/L 4.2 MEQ/L Chloride Level 108 MEQ/L 108 MEQ/L 105 MEQ/L Carbon Dioxide Level 18.6 MEQ/L 16.3 MEQ/L 22.0 MEQ/L Anion Gap 14 MEQ/L 15 MEQ/L 13 MEQ/L Estimat Glomerular Filtration Rate 15 ML/MIN 16 ML/MIN 17 ML/MIN Imaging Last 72 hours Impressions Cyst Biopsy Asp-Paracentesis US 10/01/17 0000 Signed Impressions: CONCLUSION: Ultrasound-guided abdominal paracentesis as above. Last Impressions Chest X-Ray 09/16/17 1504 Signed Impressions: Service Date/Time: Saturday, September 16, 2017 15:28 - CONCLUSION: 1. Patchy bilateral lower lobe airspace disease, more prominent on the right. Findings are concerning for multilobar pneumonia or aspiration. Zenon Busch MD Head CT 09/16/17 0000 Signed Impressions: Service Date/Time: Saturday, September 16, 2017 17:56 - CONCLUSION: 1. No acute intracranial abnormality. 2. Left maxillary and sphenoid sinus mucosal disease. Zenon Busch MD Chest CT 09/16/17 0000 Signed Impressions: Service Date/Time: Saturday, September 16, 2017 18:04 - CONCLUSION: 1. Small bilateral pleural effusions with dense bilateral lower lobe airspace consolidation. 2. Numerous bilateral inflammatory pulmonary nodules including cavitary nodules in the apices bilaterally. Findings are consistent with septic emboli. Zenon Busch MD Abdomen/Pelvis CT 09/16/17 0000 Signed Impressions: Service Date/Time: Saturday, September 16, 2017 18:04 - CONCLUSION: 1. Limited examination due to paucity of peritoneal fat and patient's overlying arms. 2. Hepatosplenomegaly with small amount of ascites. 3. Small to moderate amount of colonic stool without evidence for bowel obstruction. Zenon Busch MD Physical Exam GENERAL: Awakens easily, gets anxious. Not in distress SKIN: Warm and dry. No generalized rash, no ecchymoses HEAD: Atraumatic. Normocephalic. No temporal wasting, or tenderness. EYES: [place] conjunctiva. No petechia or hemorrhage. Extraocular movements full and intact. EARS, NOSE AND THROAT: Nose without bleeding or purulent nasal discharge. Moist oral mucosa. NECK: Trachea midline. Supple, no meningeal signs CARDIOVASCULAR: Regular rate and rhythm. No murmurs, rubs or gallops heard RESPIRATORY: Clear to auscultation. Breath sounds equal bilaterally. No rales , wheezing or rhonchi. Decreased breath sounds at the bases ABDOMEN: Distended, with mild diffuse abdominal tenderness, tympanitic on percussion. Bowel sounds present and normoactive. : Dan cath in place, blood tinged urine EXTREMITIES: No clubbing, cyanosis. Has improving bilateral pedal edema. Has wound L leg with some slough, no surrounding cellulitis NEUROLOGICAL: Grossly non-focal PSYCHIATRIC: Cooperative LINE: No evidence of infection Assessment & Plan Remarks IMPRESSION Sepsis with shock, due to endocarditis - BP stable - has MOSF - previously had GAS, then MSSA - now MSSA MSSA endocarditis - echo with large TV veg and now also with AV veg Has pulmonary septic emboli Has UTI Renal failure, slightly better - has good UO - has hematuria, ?traumatic Pancytopenia, improving - thrombocytopenia improving Known very poor compliance to medical Rx DIC, better New SZ - MRI negative - MRI brain negative - no recurrent SZ (+) UC with VRE RECOMMENDATION Continue Ancef Zyvox x 7 days - to finish today 10/05 Progression of infection due to poor compliance to medical treatment Monitor progress She will need a course of IV antibiotics for her endocarditis - give 6 weeks of IV Abx from date of last (+) BC - anticipated end date is October 29 Patient not surgical candidate per CTS On steroids for her renal failure Milana Harp MD Oct 05, 2017 09:19
--- NOTE | 2017-10-05 14:46 | HHI.PR ---
Subjective Remarks Patient reports that shortness of breath has mostly resolved, she is saturating at 97% on oxygen. Her main complaint today is pain in her belly. She reports having bowel movements and passing gas. Paracentesis was declined due to not enough fluid in her abdomen at this time. Objective Vitals Vital Signs Date Time Temp Pulse Resp B/P (MAP) Pulse Ox O2 Delivery O2 Flow Rate FiO2 10/05/17 13:45 97 Nasal Cannula 4.00 10/05/17 12:02 98.2 96 17 128/72 (90) 94 10/05/17 08:02 98.4 90 17 130/67 (88) 97 10/05/17 04:00 98.1 92 20 138/75 (96) 97 10/05/17 03:46 93 10/05/17 00:00 98.5 95 20 135/78 (97) 96 10/04/17 23:57 93 10/04/17 23:57 Nasal Cannula 4.50 10/04/17 20:00 97.6 96 20 136/76 (96) 97 10/04/17 20:00 Nasal Cannula 4.50 10/04/17 19:53 98 10/04/17 19:40 96 Nasal Cannula 4.50 10/04/17 16:02 98.6 102 17 139/73 (95) 94 10/04/17 16:00 101 I/O 10/04/17 10/04/17 10/04/17 10/05/17 10/05/17 10/05/17 06:59 14:59 22:59 06:59 14:59 22:59 Intake Total 402 ml 155 ml 630 ml 400 ml Output Total 1600 ml 2001 ml 2125 ml Balance -1198 ml 155 ml -1371 ml -1725 ml Intake Oral 402 ml 475 ml 400 ml IV Total 155 ml 155 ml Output Urine Total 1600 ml 2001 ml 2125 ml # Bowel Movements 0 1 Result Diagram: 10/05/1728 10/05/17527 Objective Remarks GENERAL: appears older than stated age SKIN: Warm and dry. HEAD: Normocephalic. EYES: No scleral icterus. No injection or drainage. NECK: Supple, trachea midline. No JVD or lymphadenopathy. CARDIOVASCULAR: Sinus tachycardia without murmurs, gallops, or rubs. RESPIRATORY: Diminished bases, clear otherwise. No accessory muscle use. GASTROINTESTINAL: Abdomen round, mildly tender, fluid-filled, nonacute EXTREMITIES: No cyanosis, or edema. NEUROLOGICAL: Awake, alert, and oriented x 3. Non-focal. A/P Problem List: (1) Endocarditis ICD Code: I38 - Endocarditis, valve unspecified Status: Acute (2) Septic pulmonary embolism ICD Code: I26.90 - Septic pulmonary embolism without acute cor pulmonale Status: Acute Assessment and Plan 37-year-old female admitted with Severe Sepsis with shock and organ failure related to 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 Septic pulmonary emboli Tricuspid valve vegetation with severe tricuspid regurg , MSSA endocarditis Right lower leg abscess (septic emboli) continue linezolid and cefazolin Appreciate infectious disease consult Respiratory distress, septic versus thrombotic pulmonary emboli VQ scan shows intermediate probability, d-dimer was 12 Continue therapeutic dose of Lovenox (renally dosed) Continue IV Lasix Oxygen saturations at 97% today Anxiety and panic attacks Responding well to Xanax Gross hematuria and microscopic pyuria Nephrology feels hematuria could be related to postinfectious glomerulonephritis (strep versus hep C). Noncontrast ct abd negative Urine culture is negative Acute on chronic kidney injury Creatinine at 3.0 today, trend is improving Anemia Iron studies consistent with anemia of chronic disease Mild hematuria present Daily CBC, transfuse if < 7.0 Acute encephalopathy, Narcotic Withdraw Continue on Percocet 10/325 mg p.o. every 4 hourly as needed for pain/withdraw Abdominal distention/ascites Secondary to heart failure as LFTs wnl CT abd with stable hepatosplenomegaly S/p paracentesis 09/25 with 1.4L removed and 10/01 with 2L removed Continue with Lasix diuresis This pain has become her chief complaint. IV morphine added for breakthrough pain Severe sepsis with multiorgan failure Acute Renal Failure, cardiorenal syndrome Diastolic CHF secondary to valvulopathy. Pulmonary hypertension Following creatinine Appreciate nephrology following DVT Prophylaxis Therapeutic Lovenox for coverage of probable pulmonary embolism Navdeep Zarate MD Oct 05, 2017 14:46
--- NOTE | 2017-10-05 15:45 | HHI.NPPN ---
Subjective History of Present Illness Patient is a 37-year-old with IVDA and endocarditis with acute renal failure Additional Remarks Her clinical condition , still tired Review of Systems General Constitutional: Fatigue Musculoskeletal MS: Pain/Stiffness Objective Data Data Vital Signs Date Time Temp Pulse Resp B/P (MAP) Pulse Ox O2 Delivery O2 Flow Rate FiO2 10/05/17 13:45 97 Nasal Cannula 4.00 10/05/17 12:02 98.2 96 17 128/72 (90) 94 10/05/17 08:02 98.4 90 17 130/67 (88) 97 10/05/17 04:00 98.1 92 20 138/75 (96) 97 10/05/17 03:46 93 10/05/17 00:00 98.5 95 20 135/78 (97) 96 10/04/17 23:57 93 10/04/17 23:57 Nasal Cannula 4.50 10/04/17 20:00 97.6 96 20 136/76 (96) 97 10/04/17 20:00 Nasal Cannula 4.50 10/04/17 19:53 98 10/04/17 19:40 96 Nasal Cannula 4.50 10/04/17 16:02 98.6 102 17 139/73 (95) 94 10/04/17 16:00 101 -: 10/05/17 0528 10/05/17 0528 Physical Exam General Appearance: No Acute Distress, Pale, Anxious Neck Neck Exam: Neck Supple Pulmonary Resp Exam: Decreased Bases Cardiology CV Exam: Regular, Murmur Gastrointestinal/Abdomen GI Exam: Soft, Non-Tender, Distended, Bowel Sounds Hypoactive Integumentary Skin Exam: Ulcer(s) Extremeties Extremities Exam: Moderate Edema Neurologic Neuro Exam: Alert, Awake, Oriented Assessment/Plan Problem List: (1) Acute renal failure ICD Codes: N17.9 - Acute kidney failure, unspecified Plan: This is likely due to underlying endocarditis and severe infection, post infectious GN. . 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 GILLESPIE? Check REJI/ANCA/HIV/cryoglobulin unfortunately she has Endocarditis and Cr high for angiogram C3 low on Solumedrol 40 mg IV cr declined 3.05 responding UOP 4.1 L on Aldactone/ Lasix 40 mg bid Monitor for electrolytes abnormalities. Negative ANCA/REJI/ Pending cryoglobulin (2) Endocarditis ICD Codes: I38 - Endocarditis, valve unspecified Status: Acute Plan: Due to IVDA Vegetation on Tricuspid valve and also Aortic valve. Not a candidate for surgery per CTS. ID following. (3) Severe sepsis ICD Codes: A41.9 - Sepsis, unspecified organism; R65.20 - Severe sepsis without septic shock Status: Acute Plan: Staph aureus septicemia Azalea Gillette MD Oct 05, 2017 15:45
[2017-10-05] MEDS: MORPHINE SULFATE 4 MG/ML INJ IV PUSH PRN ×2 (18:58→23:15)
[2017-10-05] MEDS: REMOVE OLD LIDOCAINE PATCH T-DERMAL SCH (21:00)
[2017-10-06] VITALS (12 sets, daily range): BP systolic 121–154; BP diastolic 60–77; PULSE 83–106; RESP 16–18; TEMP 97.8–98.5; O2SAT 97–98
[2017-10-06] MEDS: ALPRAZolam 0.5 MG TAB PO PRN ×4 (02:38→21:28)
[2017-10-06] MEDS: CHLORHEXIDINE GLUCONATE 2 % 1 PACK (2 CLOTHS) TOP SCH (02:45)
[2017-10-06] MEDS: hydrALAZINE HCL 100 MG TAB PO SCH ×3 (05:27→21:28)
[2017-10-06] MEDS: LEVOTHYROXINE SODIUM 25 MCG TAB PO SCH (05:27)
[2017-10-06] MEDS: ENOXAPARIN SODIUM 60 MG/0.6 ML SYRINGE SQ SCH (05:27)
[2017-10-06] MEDS: oxyCODONE/ACETAMINOPHEN 10 MG/325 MG TAB PO PRN ×5 (05:27→23:25)
[2017-10-06] MEDS: ISOSORBIDE DINITRATE 10 MG TAB PO SCH ×3 (05:27→21:28)
[2017-10-06] MEDS: MORPHINE SULFATE 4 MG/ML INJ IV PUSH PRN ×4 (06:24→21:30)
[2017-10-06] MEDS: SODIUM CHLORIDE 0.9% FLUSH 10 ML FLUSH IV FLUSH PRN (06:25)
[2017-10-06] MEDS: INSULIN ASPART SUPPLEMENTAL SCALE SQ SCH ×4 (07:57→21:29)
[2017-10-06] MEDS: DOCUSATE SODIUM 50 MG/SENNA 8.6 MG TAB PO SCH ×2 (09:00→21:28)
[2017-10-06] MEDS: REMOVE OLD PATCH T-DERMAL SCH ×2 (09:00→15:30)
[2017-10-06] MEDS: MUPIROCIN 2% OINT 1 APPLIC/GM SYR EACH NARE SCH ×2 (09:00→21:27)
[2017-10-06] MEDS: LIDOCAINE HCL 5% PATCH T-DERMAL SCH (09:29)
[2017-10-06] MEDS: methylPREDNISolone SOD SUCC 40 MG/1 ML VIAL IV PUSH SCH (09:29)
[2017-10-06] MEDS: NICOTINE 7 MG/24 HR PATCH T-DERMAL SCH (09:30)
[2017-10-06] MEDS: PANTOPRAZOLE SOD 40 MG DELAYED RELEASE TAB PO SCH (09:33)
[2017-10-06] MEDS: CALCIUM ACETATE 667 MG CAP PO SCH ×3 (09:33→17:18)
[2017-10-06] MEDS: SPIRONOLACTONE 25 MG TAB PO SCH ×2 (09:33→17:18)
[2017-10-06] MEDS: amLODIPine BESYLATE 5 MG TAB PO SCH (09:34)
[2017-10-06] MEDS: METOPROLOL TARTRATE 25 MG TAB PO SCH ×2 (09:34→21:28)
[2017-10-06] MEDS: FUROSEMIDE 40 MG/4 ML VIAL IV PUSH SCH ×2 (09:34→17:18)
[2017-10-06] MEDS: MEGESTROL ACETATE 40 MG TAB PO SCH ×2 (09:34→21:28)
[2017-10-06] MEDS: THIAMINE HCL 100 MG TAB PO SCH (09:34)
[2017-10-06] MEDS: SODIUM CHLORIDE 0.9% FLUSH 10 ML FLUSH IV FLUSH SCH ×2 (09:35→21:27)
[2017-10-06] MEDS: ceFAZolin 2 GM PREMIX 50 ML IV SCH ×2 (09:36→21:27)
[2017-10-06] MEDS: levETIRAcetam INJ 500 MG in SODIUM CHLORIDE 0.9% INJ 100 ML IV SCH ×2 (09:46→21:27)
[2017-10-06 13:53] LABS: CRYOGLOBULIN QUALITATIVE POSITIVE (NEGATIVE)
--- NOTE | 2017-10-06 14:25 | HHI.NPPN ---
Subjective History of Present Illness Patient is a 37-year-old with IVDA and endocarditis with acute renal failure Additional Remarks Her clinical condition , still tired Review of Systems General Constitutional: Fatigue Musculoskeletal MS: Pain/Stiffness Objective Data Data 10/06/17 10/07/17 19:00 07:00 Intake Total 205 ml Balance 205 ml IV Total 205 ml Vital Signs Date Time Temp Pulse Resp B/P (MAP) Pulse Ox O2 Delivery O2 Flow Rate FiO2 10/06/17 12:02 98.0 94 18 154/74 (100) 97 10/06/17 10:57 16 10/06/17 10:57 16 10/06/17 10:04 98 Nasal Cannula 4.00 10/06/17 08:02 98.5 91 16 121/67 (85) 97 10/06/17 08:00 96 10/06/17 04:00 93 10/06/17 04:00 98.0 83 17 131/60 (83) 97 10/06/17 00:00 100 10/06/17 00:00 98.1 100 17 134/77 (96) 97 10/05/17 21:44 Nasal Cannula 4.00 10/05/17 20:00 102 10/05/17 20:00 98.2 102 17 132/70 (90) 98 10/05/17 17:52 94 Nasal Cannula 4.00 10/05/17 16:02 98.2 101 17 126/67 (86) 94 10/05/17 16:00 95 -: 10/05/17 0528 10/05/17 0528 Physical Exam General Appearance: No Acute Distress, Pale, Anxious Neck Neck Exam: Neck Supple Pulmonary Resp Exam: Decreased Bases Cardiology CV Exam: Regular, Murmur Gastrointestinal/Abdomen GI Exam: Soft, Non-Tender, Distended, Bowel Sounds Hypoactive Integumentary Skin Exam: Ulcer(s) Extremeties Extremities Exam: Moderate Edema Neurologic Neuro Exam: Alert, Awake, Oriented Assessment/Plan Problem List: (1) Acute renal failure ICD Codes: N17.9 - Acute kidney failure, unspecified Plan: This is likely due to underlying endocarditis and severe infection, post infectious GN. . 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 GILLESPIE? Check REJI/ANCA/HIV/cryoglobulin unfortunately she has Endocarditis and Cr high for angiogram C3 low on Solumedrol 40 mg IV cr declined 3.05 responding UOP 5.3 L on Aldactone/ Lasix 40 mg bid Monitor for electrolytes abnormalities. Negative ANCA/REJI/ cryoglobulin positive likely causing hematuria she will need a kidney biopsy for MPGN Type1, or GILLESPIE May hold Lovenox for biopsy on Sunday? (2) Endocarditis ICD Codes: I38 - Endocarditis, valve unspecified Status: Acute Plan: Due to IVDA Vegetation on Tricuspid valve and also Aortic valve. Not a candidate for surgery per CTS. ID following. (3) Severe sepsis ICD Codes: A41.9 - Sepsis, unspecified organism; R65.20 - Severe sepsis without septic shock Status: Acute Plan: Staph aureus septicemia Azalea Gillette MD Oct 06, 2017 14:25
--- NOTE | 2017-10-06 15:22 | HHI.PR ---
Subjective Remarks Patient states her pain is more adequately controlled, she has been able to sleep today. She requests a higher dose of her nicotine patch. Objective Vitals Vital Signs Date Time Temp Pulse Resp B/P (MAP) Pulse Ox O2 Delivery O2 Flow Rate FiO2 10/06/17 12:02 98.0 94 18 154/74 (100) 97 10/06/17 10:57 16 10/06/17 10:57 16 10/06/17 10:04 98 Nasal Cannula 4.00 10/06/17 08:02 98.5 91 16 121/67 (85) 97 10/06/17 08:00 96 10/06/17 04:00 93 10/06/17 04:00 98.0 83 17 131/60 (83) 97 10/06/17 00:00 100 10/06/17 00:00 98.1 100 17 134/77 (96) 97 10/05/17 21:44 Nasal Cannula 4.00 10/05/17 20:00 102 10/05/17 20:00 98.2 102 17 132/70 (90) 98 10/05/17 17:52 94 Nasal Cannula 4.00 10/05/17 16:02 98.2 101 17 126/67 (86) 94 10/05/17 16:00 95 I/O 10/05/17 10/05/17 10/05/17 10/06/17 10/06/17 10/06/17 07:00 15:00 23:00 07:00 15:00 23:00 Intake Total 400 ml 600 ml 800 ml 205 ml Output Total 2125 ml 2600 ml 2700 ml Balance -1725 ml -2000 ml -1900 ml 205 ml Intake Oral 400 ml 600 ml 800 ml IV Total 205 ml Output Urine Total 2125 ml 2600 ml 2700 ml # Bowel Movements 1 Result Diagram: 10/05/1752710/05/17527 Objective Remarks GENERAL: appears older than stated age SKIN: Warm and dry. HEAD: Normocephalic. EYES: No scleral icterus. No injection or drainage. NECK: Supple, trachea midline. No JVD or lymphadenopathy. CARDIOVASCULAR: Sinus tachycardia without murmurs, gallops, or rubs. RESPIRATORY: Diminished bases, clear otherwise. No accessory muscle use. GASTROINTESTINAL: Abdomen round, mildly tender, fluid-filled, nonacute EXTREMITIES: No cyanosis, or edema. NEUROLOGICAL: Awake, alert, and oriented x 3. Non-focal. A/P Problem List: (1) Endocarditis ICD Code: I38 - Endocarditis, valve unspecified Status: Acute (2) Septic pulmonary embolism ICD Code: I26.90 - Septic pulmonary embolism without acute cor pulmonale Status: Acute Assessment and Plan 37-year-old female admitted with Severe Sepsis with shock and organ failure related to 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 Septic pulmonary emboli Tricuspid valve vegetation with severe tricuspid regurg , MSSA endocarditis Right lower leg abscess (septic emboli) continue linezolid and cefazolin Appreciate infectious disease consult Respiratory distress, septic versus thrombotic pulmonary emboli VQ scan shows intermediate probability, d-dimer was 12 Continue therapeutic dose of Lovenox (renally dosed) Continue IV Lasix Anxiety and panic attacks Responding well to Xanax Gross hematuria and microscopic pyuria Nephrology feels hematuria could be related to postinfectious glomerulonephritis (strep versus hep C). Noncontrast ct abd negative Urine culture is negative Stable on increased dose of Lovenox Acute on chronic kidney injury Creatinine at 3.0 today, trend is improving Anemia Iron studies consistent with anemia of chronic disease Mild hematuria present Daily CBC, transfuse if < 7.0 Acute encephalopathy, Narcotic Withdraw Continue on Percocet 10/325 mg p.o. every 4 hourly as needed for pain/withdraw Abdominal distention/ascites Secondary to heart failure as LFTs wnl CT abd with stable hepatosplenomegaly S/p paracentesis 09/25 with 1.4L removed and 10/01 with 2L removed Continue with Lasix diuresis Patient is more comfortable after adding IV morphine for breakthrough Severe sepsis with multiorgan failure Acute Renal Failure, cardiorenal syndrome Diastolic CHF secondary to valvulopathy. Pulmonary hypertension Following creatinine Appreciate nephrology following DVT Prophylaxis Therapeutic Lovenox for coverage of probable pulmonary embolism Navdeep Zarate MD Oct 06, 2017 15:22
[2017-10-06] MEDS: NICOTINE 14 MG/24 HR PATCH T-DERMAL SCH (16:31)
[2017-10-06] MEDS: REMOVE OLD LIDOCAINE PATCH T-DERMAL SCH (21:00)
[2017-10-07] VITALS (13 sets, daily range): BP systolic 120–139; BP diastolic 60–82; PULSE 97–116; RESP 16–20; TEMP 97.9–98.3; O2SAT 92–99
[2017-10-07] MEDS: MORPHINE SULFATE 4 MG/ML INJ IV PUSH PRN ×6 (01:42→22:51)
[2017-10-07] MEDS: oxyCODONE/ACETAMINOPHEN 10 MG/325 MG TAB PO PRN ×5 (03:47→20:40)
[2017-10-07] MEDS: CHLORHEXIDINE GLUCONATE 2 % 1 PACK (2 CLOTHS) TOP SCH (03:49)
[2017-10-07] MEDS: hydrALAZINE HCL 100 MG TAB PO SCH ×3 (05:53→22:52)
[2017-10-07] MEDS: ISOSORBIDE DINITRATE 10 MG TAB PO SCH ×3 (05:53→22:52)
[2017-10-07] MEDS: ENOXAPARIN SODIUM 60 MG/0.6 ML SYRINGE SQ SCH (05:53)
[2017-10-07] MEDS: LEVOTHYROXINE SODIUM 25 MCG TAB PO SCH (05:53)
[2017-10-07] MEDS: CALCIUM ACETATE 667 MG CAP PO SCH ×3 (08:00→18:08)
[2017-10-07] MEDS: THIAMINE HCL 100 MG TAB PO SCH (08:00)
[2017-10-07] MEDS: INSULIN ASPART SUPPLEMENTAL SCALE SQ SCH ×4 (08:00→21:00)
[2017-10-07] MEDS: SPIRONOLACTONE 25 MG TAB PO SCH ×2 (08:00→18:08)
[2017-10-07] MEDS: PANTOPRAZOLE SOD 40 MG DELAYED RELEASE TAB PO SCH (08:00)
[2017-10-07] MEDS: amLODIPine BESYLATE 5 MG TAB PO SCH (08:01)
[2017-10-07] MEDS: MEGESTROL ACETATE 40 MG TAB PO SCH ×2 (08:01→22:52)
[2017-10-07] MEDS: METOPROLOL TARTRATE 25 MG TAB PO SCH ×2 (08:01→22:52)
[2017-10-07] MEDS: methylPREDNISolone SOD SUCC 40 MG/1 ML VIAL IV PUSH SCH (08:01)
[2017-10-07] MEDS: FUROSEMIDE 40 MG/4 ML VIAL IV PUSH SCH ×2 (08:01→18:09)
[2017-10-07] MEDS: MUPIROCIN 2% OINT 1 APPLIC/GM SYR EACH NARE SCH ×2 (08:01→21:00)
[2017-10-07] MEDS: levETIRAcetam INJ 500 MG in SODIUM CHLORIDE 0.9% INJ 100 ML IV SCH ×2 (08:02→22:53)
[2017-10-07] MEDS: SODIUM CHLORIDE 0.9% FLUSH 10 ML FLUSH IV FLUSH SCH ×2 (08:03→22:54)
[2017-10-07] MEDS: DOCUSATE SODIUM 50 MG/SENNA 8.6 MG TAB PO SCH ×2 (08:07→21:00)
[2017-10-07] MEDS: REMOVE OLD PATCH T-DERMAL SCH (08:08)
[2017-10-07] MEDS: NICOTINE 14 MG/24 HR PATCH T-DERMAL SCH (08:09)
[2017-10-07] MEDS: LIDOCAINE HCL 5% PATCH T-DERMAL SCH (08:09)
[2017-10-07] MEDS: ALPRAZolam 0.5 MG TAB PO PRN ×2 (09:06→18:09)
[2017-10-07 09:15] LABS: AUTOMATED NEUTROPHIL # 5.4 TH/MM3 (1.8-7.7); BASOPHIL % 0.3 % (0.0-2.0); EOSINOPHIL % 0.5 % (0.0-4.0); HEMATOCRIT 24.9 % (35.0-46.0); HEMOGLOBIN 8.4 GM/DL (11.6-15.3); LYMPH % 30.9 % (9.0-44.0); LYMPHOCYTE # 2.8 TH/MM3 (1.0-4.8); MEAN CORPUSCULAR HEMOGLOBIN 29.2 PG (27.0-34.0); MEAN CORPUSCULAR HGB CONC 33.9 % (32.0-36.0); MEAN PLATELET VOLUME 8.5 FL (7.0-11.0); MONO % 8.5 % (0.0-8.0); MONOCYTE # 0.8 TH/MM3 (0-0.9); NEUT % 59.8 % (16.0-70.0); PLATELET COUNT 140 TH/MM3 (150-450); RED BLOOD COUNT 2.89 MIL/MM3 (4.00-5.30); RED CELL DISTRIBUTION WIDTH 20.7 % (11.6-17.2); WHITE BLOOD COUNT 9.1 TH/MM3 (4.0-11.0)
[2017-10-07 09:43] LABS: BICARBONATE 23.8 MEQ/L (21.0-32.0); CALCIUM 9.4 MG/DL (8.5-10.1); CREATININE 2.18 MG/DL (0.50-1.00)
[2017-10-07] MEDS: ceFAZolin 2 GM PREMIX 50 ML IV SCH ×2 (10:06→23:13)
--- NOTE | 2017-10-07 15:08 | HHI.NPPN ---
Subjective History of Present Illness Patient is a 37-year-old with IVDA and endocarditis with acute renal failure Additional Remarks Her clinical condition , still tired Review of Systems General Constitutional: Fatigue Musculoskeletal MS: Pain/Stiffness Objective Data Data 10/07/17 10/08/17 19:00 07:00 Intake Total 155 ml Balance 155 ml IV Total 155 ml Vital Signs Date Time Temp Pulse Resp B/P (MAP) Pulse Ox O2 Delivery O2 Flow Rate FiO2 10/07/17 12:01 98.0 98 16 132/72 (92) 96 10/07/17 08:40 92 21 10/07/17 08:01 98.2 101 16 134/74 (94) 95 10/07/17 08:00 Nasal Cannula 2.00 10/07/17 04:00 97.9 101 17 129/60 (83) 98 10/07/17 04:00 Nasal Cannula 4.00 10/07/17 03:59 97 10/07/17 00:37 99 10/07/17 00:00 97.9 102 17 120/69 (86) 99 10/07/17 00:00 Nasal Cannula 4.00 10/06/17 20:01 106 10/06/17 20:00 97.8 106 17 131/70 (90) 98 10/06/17 20:00 Nasal Cannula 4.00 10/06/17 17:48 97 Nasal Cannula 4.00 10/06/17 16:31 18 10/06/17 16:02 98.1 96 18 152/76 (101) 97 10/06/17 16:00 103 10/06/17 15:39 18 -: 10/07/17 0850 10/07/17 0850 Physical Exam General Appearance: No Acute Distress, Pale, Anxious Neck Neck Exam: Neck Supple Pulmonary Resp Exam: Decreased Bases Cardiology CV Exam: Regular, Murmur Gastrointestinal/Abdomen GI Exam: Soft, Non-Tender, Distended, Bowel Sounds Hypoactive Integumentary Skin Exam: Ulcer(s) Extremeties Extremities Exam: Moderate Edema Neurologic Neuro Exam: Alert, Awake, Oriented Assessment/Plan Problem List: (1) Acute renal failure ICD Codes: N17.9 - Acute kidney failure, unspecified Plan: This is likely due to underlying endocarditis and severe infection, post infectious GN. . 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 G[place]ES[place]E? Check REJI/ANCA/HIV/cryoglobulin unfortunately she has Endocarditis and Cr high for angiogram C3 low on Solumedrol 40 mg IV cr declined 2.18 responding UOP 7 L on Aldactone/ Lasix 40 mg bid Monitor for electrolytes abnormalities. Negative ANCA/REJI/ cryoglobulin positive Since kidney function is improving is resolving most likely it is postinfectious lower nephritis but for some reason it creatinine starts going back that he might plan to do kidney biopsy She will need treatment for hepatitis C with antiviral treatment (2) Endocarditis ICD Codes: I38 - Endocarditis, valve unspecified Status: Acute Plan: Due to IVDA Vegetation on Tricuspid valve and also Aortic valve. Not a candidate for surgery per CTS. ID following. (3) Severe sepsis ICD Codes: A41.9 - Sepsis, unspecified organism; R65.20 - Severe sepsis without septic shock Status: Acute Plan: Staph aureus septicemia Azalea Gillette MD Oct 07, 2017 15:08
--- NOTE | 2017-10-07 16:38 | HHI.PR ---
Subjective Remarks Patient is upset today, she feels shameful and is having thoughts of leaving the hospital. I spoke with her frankly and explained that leaving the hospital means dying. I explained to her that she can endure a little same and face her problems had on rather than an escape them as she has done with her habits. She wants to start getting out of bed. Objective Vitals Vital Signs Date Time Temp Pulse Resp B/P (MAP) Pulse Ox O2 Delivery O2 Flow Rate FiO2 10/07/17 12:01 98.0 98 16 132/72 (92) 96 10/07/17 08:40 92 21 10/07/17 08:01 98.2 101 16 134/74 (94) 95 10/07/17 08:00 Nasal Cannula 2.00 10/07/17 04:00 97.9 101 17 129/60 (83) 98 10/07/17 04:00 Nasal Cannula 4.00 10/07/17 03:59 97 10/07/17 00:37 99 10/07/17 00:00 97.9 102 17 120/69 (86) 99 10/07/17 00:00 Nasal Cannula 4.00 10/06/17 20:01 106 10/06/17 20:00 97.8 106 17 131/70 (90) 98 10/06/17 20:00 Nasal Cannula 4.00 10/06/17 17:48 97 Nasal Cannula 4.00 I/O 10/06/17 10/06/17 10/06/17 10/07/17 10/07/17 10/07/17 07:00 15:00 23:00 07:00 15:00 23:00 Intake Total 800 ml 205 ml 395 ml 155 ml Output Total 2700 ml 4050 ml 3000 ml Balance -1900 ml 205 ml -3655 ml -3000 ml 155 ml Intake Oral 800 ml 240 ml IV Total 205 ml 155 ml 155 ml Output Urine Total 2700 ml 4050 ml 3000 ml # Bowel Movements 0 Result Diagram: 10/07/17 0850 10/07/17 0850 Objective Remarks GENERAL: appears older than stated age SKIN: Warm and dry. HEAD: Normocephalic. EYES: No scleral icterus. No injection or drainage. NECK: Supple, trachea midline. No JVD or lymphadenopathy. CARDIOVASCULAR: Sinus tachycardia without murmurs, gallops, or rubs. RESPIRATORY: Diminished bases, clear otherwise. No accessory muscle use. GASTROINTESTINAL: Abdomen round, mildly tender, fluid-filled, nonacute EXTREMITIES: No cyanosis, or edema. NEUROLOGICAL: Awake, alert, and oriented x 3. Non-focal. A/P Problem List: (1) Endocarditis ICD Code: I38 - Endocarditis, valve unspecified Status: Acute (2) Septic pulmonary embolism ICD Code: I26.90 - Septic pulmonary embolism without acute cor pulmonale Status: Acute Assessment and Plan 37-year-old female admitted with Severe Sepsis with shock and organ failure related to 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 Septic pulmonary emboli Tricuspid valve vegetation with severe tricuspid regurg , MSSA endocarditis Right lower leg abscess (septic emboli) continue linezolid and cefazolin Appreciate infectious disease consult Respiratory distress, septic versus thrombotic pulmonary emboli VQ scan shows intermediate probability, d-dimer was 12 Continue therapeutic dose of Lovenox (renally dosed) Respiratory distress is resolved at this point Generalized weakness Work with physical therapy to improve strength and ambulation Anxiety and panic attacks Responding well to Xanax Gross hematuria and microscopic pyuria Nephrology feels hematuria could be related to postinfectious glomerulonephritis (strep versus hep C). Noncontrast ct abd negative, Urine culture is negative Stable on increased dose of Lovenox Acute on chronic kidney injury Creatinine trend continues to improve Anemia Iron studies consistent with anemia of chronic disease Hemoglobin has remained stable Mild hematuria has not worsened Acute encephalopathy, Narcotic Withdraw Continue on Percocet 10/325 mg p.o. every 4 hourly as needed for pain/withdraw Encephalopathy has resolved No sign of withdrawal Abdominal distention/ascites Secondary to heart failure as LFTs wnl CT abd with stable hepatosplenomegaly S/p paracentesis 09/25 with 1.4L removed and 10/01 with 2L removed Continue with Lasix diuresis Severe sepsis with multiorgan failure Acute Renal Failure, cardiorenal syndrome Diastolic CHF secondary to valvulopathy. Pulmonary hypertension Following creatinine Appreciate nephrology following DVT Prophylaxis Therapeutic Lovenox Navdeep Zarate MD Oct 07, 2017 16:38
[2017-10-07] MEDS: REMOVE OLD LIDOCAINE PATCH T-DERMAL SCH (21:00)
[2017-10-08] VITALS (13 sets, daily range): BP systolic 97–164; BP diastolic 55–84; PULSE 60–108; RESP 15–20; TEMP 97.4–98.3; O2SAT 94–98
[2017-10-08] MEDS: MORPHINE SULFATE 4 MG/ML INJ IV PUSH PRN ×5 (02:38→19:58)
[2017-10-08] MEDS: CHLORHEXIDINE GLUCONATE 2 % 1 PACK (2 CLOTHS) TOP SCH (04:00)
[2017-10-08] MEDS: ALPRAZolam 0.5 MG TAB PO PRN ×3 (05:39→19:58)
[2017-10-08] MEDS: ISOSORBIDE DINITRATE 10 MG TAB PO SCH ×3 (05:40→21:14)
[2017-10-08] MEDS: ENOXAPARIN SODIUM 60 MG/0.6 ML SYRINGE SQ SCH (05:40)
[2017-10-08] MEDS: LEVOTHYROXINE SODIUM 25 MCG TAB PO SCH (05:40)
[2017-10-08] MEDS: hydrALAZINE HCL 100 MG TAB PO SCH ×3 (05:40→21:14)
[2017-10-08 07:50] LABS: AUTOMATED NEUTROPHIL # 4.6 TH/MM3 (1.8-7.7); BASOPHIL % 0.4 % (0.0-2.0); EOSINOPHIL # 0.1 TH/MM3 (0-0.4); EOSINOPHIL % 0.7 % (0.0-4.0); LYMPH % 31.7 % (9.0-44.0); LYMPHOCYTE # 2.5 TH/MM3 (1.0-4.8); MEAN CELL VOLUME 86.1 FL (80.0-100.0); MEAN CORPUSCULAR HGB CONC 33.6 % (32.0-36.0); MEAN PLATELET VOLUME 8.4 FL (7.0-11.0); MONO % 8.6 % (0.0-8.0); MONOCYTE # 0.7 TH/MM3 (0-0.9); NEUT % 58.6 % (16.0-70.0); PLATELET COUNT 98 TH/MM3 (150-450); RED BLOOD COUNT 2.31 MIL/MM3 (4.00-5.30); RED CELL DISTRIBUTION WIDTH 20.3 % (11.6-17.2); WHITE BLOOD COUNT 7.9 TH/MM3 (4.0-11.0)
[2017-10-08] MEDS: INSULIN ASPART SUPPLEMENTAL SCALE SQ SCH ×4 (08:00→21:00)
[2017-10-08 08:02] LABS: BICARBONATE 22.2 MEQ/L (21.0-32.0); CREATININE 1.88 MG/DL (0.50-1.00)
[2017-10-08 08:07] LABS: HEMATOCRIT 19.9 % (35.0-46.0); HEMOGLOBIN 6.7 GM/DL (11.6-15.3)
[2017-10-08] MEDS: MUPIROCIN 2% OINT 1 APPLIC/GM SYR EACH NARE SCH ×2 (09:00→21:00)
[2017-10-08] MEDS ORDERED: SODIUM CHLOR 0.9% 250 ML INJ 250 ML IV ONE (09:00)
[2017-10-08] MEDS: DOCUSATE SODIUM 50 MG/SENNA 8.6 MG TAB PO SCH ×2 (09:00→21:00)
[2017-10-08] MEDS: oxyCODONE/ACETAMINOPHEN 10 MG/325 MG TAB PO PRN ×4 (09:16→21:48)
[2017-10-08 09:30] LABS: OVALOCYTES 1+ (NORMAL)
[2017-10-08] MEDS: levETIRAcetam INJ 500 MG in SODIUM CHLORIDE 0.9% INJ 100 ML IV SCH ×2 (09:39→21:14)
[2017-10-08] MEDS: FUROSEMIDE 40 MG/4 ML VIAL IV PUSH SCH ×2 (09:40→17:46)
[2017-10-08] MEDS: LIDOCAINE HCL 5% PATCH T-DERMAL SCH (09:40)
[2017-10-08] MEDS: methylPREDNISolone SOD SUCC 40 MG/1 ML VIAL IV PUSH SCH (09:40)
[2017-10-08] MEDS: REMOVE OLD PATCH T-DERMAL SCH (09:41)
[2017-10-08] MEDS: NICOTINE 14 MG/24 HR PATCH T-DERMAL SCH (09:41)
[2017-10-08] MEDS: MEGESTROL ACETATE 40 MG TAB PO SCH ×2 (09:42→21:14)
[2017-10-08] MEDS: METOPROLOL TARTRATE 25 MG TAB PO SCH ×2 (09:42→21:14)
[2017-10-08] MEDS: THIAMINE HCL 100 MG TAB PO SCH (09:42)
[2017-10-08] MEDS: amLODIPine BESYLATE 5 MG TAB PO SCH (09:42)
[2017-10-08] MEDS: CALCIUM ACETATE 667 MG CAP PO SCH ×3 (09:42→18:07)
[2017-10-08] MEDS: PANTOPRAZOLE SOD 40 MG DELAYED RELEASE TAB PO SCH (09:42)
[2017-10-08] MEDS: SPIRONOLACTONE 25 MG TAB PO SCH ×2 (09:42→18:07)
[2017-10-08] MEDS: SODIUM CHLORIDE 0.9% FLUSH 10 ML FLUSH IV FLUSH SCH ×2 (09:43→21:14)
[2017-10-08] MEDS: ceFAZolin 2 GM PREMIX 50 ML IV SCH ×2 (09:48→21:15)
[2017-10-08] MEDS ORDERED: FUROSEMIDE 20 MG/2 ML VIAL IV PUSH ONE (10:00)
--- NOTE | 2017-10-08 14:39 | HHI.NPPN ---
Subjective History of Present Illness Patient is a 37-year-old with IVDA and endocarditis with acute renal failure Additional Remarks Her clinical condition , still tired Review of Systems General Constitutional: Fatigue Musculoskeletal MS: Pain/Stiffness Objective Data Data Vital Signs Date Time Temp Pulse Resp B/P (MAP) Pulse Ox O2 Delivery O2 Flow Rate FiO2 10/08/17 14:34 97 Nasal Cannula 4.00 10/08/17 12:00 107 10/08/17 12:00 97.9 63 18 164/84 (110) 97 10/08/17 11:00 Nasal Cannula 4.00 10/08/17 08:00 96 10/08/17 08:00 98.0 60 18 119/60 (79) 96 10/08/17 07:00 Nasal Cannula 4.00 10/08/17 04:00 98.0 100 15 129/69 (89) 96 10/08/17 00:00 97.5 99 16 97/55 (69) 94 10/07/17 20:49 95 Nasal Cannula 4.00 10/07/17 20:00 98.0 116 20 132/82 (99) 94 10/07/17 16:09 107 10/07/17 16:01 98.3 107 16 139/68 (91) 95 -: 10/08/17 0720 10/08/17 0720 Physical Exam General Appearance: No Acute Distress, Pale, Anxious Neck Neck Exam: Neck Supple Pulmonary Resp Exam: Decreased Bases Cardiology CV Exam: Regular, Murmur Gastrointestinal/Abdomen GI Exam: Soft, Non-Tender, Distended, Bowel Sounds Hypoactive Integumentary Skin Exam: Ulcer(s) Extremeties Extremities Exam: Moderate Edema Neurologic Neuro Exam: Alert, Awake, Oriented Assessment/Plan Problem List: (1) Acute renal failure ICD Codes: N17.9 - Acute kidney failure, unspecified Plan: This is likely due to underlying endocarditis and severe infection, post infectious GN. . 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 [place]ES[place]E? Check REJI/ANCA/HIV/cryoglobulin unfortunately she has Endocarditis and Cr high for angiogram C3 low on Solumedrol 40 mg IV will stop it as ARF better cr declined 1.8 responding UOP 2.6 L dropped H/H 2 units given on Aldactone/ Lasix 40 mg bid Monitor for electrolytes abnormalities. Negative ANCA/REJI/ cryoglobulin positive Since kidney function is improving is resolving most likely it is postinfectious lower nephritis but for some reason if creatinine starts going back that he might plan to do kidney biopsy She will need treatment for hepatitis C with antiviral treatment (2) Endocarditis ICD Codes: I38 - Endocarditis, valve unspecified Status: Acute Plan: Due to IVDA Vegetation on Tricuspid valve and also Aortic valve.septic pulmonary emboli Not a candidate for surgery per CTS. ID following. (3) Severe sepsis ICD Codes: A41.9 - Sepsis, unspecified organism; R65.20 - Severe sepsis without septic shock Status: Acute Plan: Staph aureus septicemia Azalea Gillette MD Oct 08, 2017 14:39
--- NOTE | 2017-10-08 15:09 | HHI.PR ---
Subjective Remarks Patient has no new complaints, she admits that she has the urge to leave the hospital on a daily basis. I tried to focus her thinking so that she realizes that this is addictive behavior and that the right choices to stay at hospital we are giving her treatment but will save her life. She understands that she leaves she has a high risk of . Objective Vitals Vital Signs Date Time Temp Pulse Resp B/P (MAP) Pulse Ox O2 Delivery O2 Flow Rate FiO2 10/08/17 14:34 97 Nasal Cannula 4.00 10/08/17 12:00 107 10/08/17 12:00 97.9 63 18 164/84 (110) 97 10/08/17 11:00 Nasal Cannula 4.00 10/08/17 08:00 96 10/08/17 08:00 98.0 60 18 119/60 (79) 96 10/08/17 07:00 Nasal Cannula 4.00 10/08/17 04:00 98.0 100 15 129/69 (89) 96 10/08/17 00:00 97.5 99 16 97/55 (69) 94 10/07/17 20:49 95 Nasal Cannula 4.00 10/07/17 20:00 98.0 116 20 132/82 (99) 94 10/07/17 16:09 107 10/07/17 16:01 98.3 107 16 139/68 (91) 95 I/O 10/07/17 10/07/17 10/07/17 10/08/17 10/08/17 10/08/17 06:59 14:59 22:59 06:59 14:59 22:59 Intake Total 155 ml 240 ml 340 ml Output Total 3000 ml 2600 ml Balance -3000 ml 155 ml -2360 ml 340 ml Intake Oral 240 ml 340 ml IV Total 155 ml Output Urine Total 3000 ml 2600 ml # Bowel Movements 1 Result Diagram: 10/08/17 0720 10/08/17 07 Objective Remarks GENERAL: appears older than stated age SKIN: Warm and dry. HEAD: Normocephalic. EYES: No scleral icterus. No injection or drainage. NECK: Supple, trachea midline. No JVD or lymphadenopathy. CARDIOVASCULAR: Sinus tachycardia without murmurs, gallops, or rubs. RESPIRATORY: Diminished bases, clear otherwise. No accessory muscle use. GASTROINTESTINAL: Abdomen round, mildly tender, fluid-filled, nonacute EXTREMITIES: No cyanosis, or edema. NEUROLOGICAL: Awake, alert, and oriented x 3. Non-focal. A/P Problem List: (1) Endocarditis ICD Code: I38 - Endocarditis, valve unspecified Status: Acute (2) Septic pulmonary embolism ICD Code: I26.90 - Septic pulmonary embolism without acute cor pulmonale Status: Acute Assessment and Plan 37-year-old female admitted with Severe Sepsis with shock and organ failure related to 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 Septic pulmonary emboli Tricuspid valve vegetation with severe tricuspid regurg , MSSA endocarditis Right lower leg abscess (septic emboli) continue linezolid and cefazolin Appreciate infectious disease consult Respiratory distress, septic versus thrombotic pulmonary emboli VQ scan shows intermediate probability, d-dimer was 12 Continue therapeutic dose of Lovenox (renally dosed) Respiratory distress is resolved at this point Anemia Iron studies consistent with anemia of chronic disease, hematuria is likely a partial contributor Hemoglobin dropped to 6.8 today, patient transfused 2 units packed red blood cells Generalized weakness Work with physical therapy to improve strength and ambulation Anxiety and panic attacks Responding well to Xanax Gross hematuria and microscopic pyuria Nephrology feels hematuria could be related to postinfectious glomerulonephritis (strep versus hep C). Noncontrast ct abd negative, Urine culture is negative Stable on increased dose of Lovenox Acute on chronic kidney injury Creatinine trend continues to improve Acute encephalopathy, Narcotic Withdraw Continue on Percocet 10/325 mg p.o. every 4 hourly as needed for pain/withdraw Encephalopathy has resolved No sign of withdrawal Abdominal distention/ascites Secondary to heart failure as LFTs wnl CT abd with stable hepatosplenomegaly S/p paracentesis 09/25 with 1.4L removed and 10/01 with 2L removed Continue with Lasix diuresis Severe sepsis with multiorgan failure Acute Renal Failure, cardiorenal syndrome Diastolic CHF secondary to valvulopathy. Pulmonary hypertension Following creatinine Appreciate nephrology following DVT Prophylaxis Therapeutic Lovenox Navdeep Zarate MD Oct 08, 2017 15:09
--- NOTE | 2017-10-08 20:04 | PD.ONC.PN ---
Subjective Subjective Remarks Resting comfortably in bed. Objective Data Date Time Temp Pulse Resp B/P (MAP) Pulse Ox O2 Delivery O2 Flow Rate FiO2 10/08/17 19:20 97.4 107 18 140/77 98 10/08/17 18:09 95 Room Air 10/08/17 16:24 98.0 108 20 129/70 95 10/08/17 16:05 98.1 104 20 127/74 96 10/08/17 16:00 98.1 84 20 127/74 (91) 96 10/08/17 16:00 108 10/08/17 14:34 97 Nasal Cannula 4.00 10/08/17 12:00 107 10/08/17 12:00 97.9 63 18 164/84 (110) 97 10/08/17 11:00 Nasal Cannula 4.00 10/08/17 08:00 96 10/08/17 08:00 98.0 60 18 119/60 (79) 96 10/08/17 07:00 Nasal Cannula 4.00 10/08/17 04:00 98.0 100 15 129/69 (89) 96 10/08/17 00:00 97.5 99 16 97/55 (69) 94 10/07/17 20:49 95 Nasal Cannula 4.00 10/08/17 10/08/17 10/08/17 07:00 15:00 23:00 Intake Total 340 ml 880 ml Output Total 4203 ml Balance 340 ml -3323 ml Result Diagram: 10/08/17 0720 10/08/17 0720 Laboratory Results Laboratory Tests Test 10/08/17 07:20 White Blood Count 7.9 TH/MM3 Red Blood Count 2.31 MIL/MM3 Hemoglobin 6.7 GM/DL Hematocrit 19.9 % Mean Corpuscular Volume 86.1 FL Mean Corpuscular Hemoglobin 29.0 PG Mean Corpuscular Hemoglobin Concent 33.6 % Red Cell Distribution Width 20.3 % Platelet Count 98 TH/MM3 Mean Platelet Volume 8.4 FL Neutrophils (%) (Auto) 58.6 % Lymphocytes (%) (Auto) 31.7 % Monocytes (%) (Auto) 8.6 % Eosinophils (%) (Auto) 0.7 % Basophils (%) (Auto) 0.4 % Neutrophils # (Auto) 4.6 TH/MM3 Lymphocytes # (Auto) 2.5 TH/MM3 Monocytes # (Auto) 0.7 TH/MM3 Eosinophils # (Auto) 0.1 TH/MM3 Basophils # (Auto) 0.0 TH/MM3 CBC Comment AUTO DIFF Differential Comment AUTO DIFF CONFIRMED Platelet Estimate LOW Platelet Morphology Comment NORMAL Ovalocytes 1+ Blood Urea Nitrogen 81 MG/DL Creatinine 1.88 MG/DL Random Glucose 98 MG/DL Calcium Level 9.0 MG/DL Sodium Level 140 MEQ/L Potassium Level 4.0 MEQ/L Chloride Level 106 MEQ/L Carbon Dioxide Level 22.2 MEQ/L Anion Gap 12 MEQ/L Estimat Glomerular Filtration Rate 30 ML/MIN Administered Medications Medications (Trade) Dose Ordered Sig/Amy Route PRN Reason Start Time Stop Time Status Last Admin Dose Admin Sodium Chloride (NS Flush) 2 ml UNSCH PRN IV FLUSH FLUSH AFTER USING IV ACCESS 09/16/17 17:00 10/06/17 06:25 Sodium Chloride (NS Flush) 2 ml BID IV FLUSH 09/16/17 21:00 10/08/17 09:43 Miscellaneous Information ([facility] Information) 1 Q361D XX 09/16/17 17:00 09/16/17 20:22 Chlorhexidine Gluconate (Chlorhexidine 2% Cloth) 3 pack Taper DAILY@04 TOP 09/17/17 04:00 09/13/18 03:59 09/27/17 03:46 Senna/Docusate Sodium (Paula-Colace) 1 tab BID PO 09/16/17 21:00 10/07/17 08:07 Magnesium Hydroxide (Milk Of Magnesia Liq) 30 ml Q12H PRN PO Mild constipation 09/16/17 17:00 09/19/17 11:19 Sennosides (Senokot) 17.2 mg Q12H PRN PO Moderate constipation 09/16/17 17:00 09/19/17 09:43 Bisacodyl (Dulcolax Supp) 10 mg DAILY PRN RECTAL SEVERE CONSITIPATION 09/16/17 17:00 09/19/17 11:20 Lactulose (Lactulose Liq) 30 ml DAILY PRN PO SEVERE CONSITIPATION 09/16/17 17:00 09/19/17 07:45 Promethazine HCl (Phenergan Inj) 25 mg Q6H PRN IM NAUSEA/VOMITING 09/16/17 17:00 10/03/17 07:14 Oxycodone/ Acetaminophen (Percocet 10-325 Mg) 1 tab Q4H PRN PO pain scale 5-10 09/17/17 08:30 10/08/17 18:06 Metoprolol Tartrate (Lopressor) 12.5 mg Q12HR PO 09/20/17 00:30 10/08/17 09:42 Cefazolin Sodium/ Dextrose 50 ml @ 100 mls/hr Q12H IV 09/24/17 10:00 10/08/17 09:48 Amlodipine Besylate (Norvasc) 10 mg DAILY PO 09/25/17 09:00 10/08/17 09:42 Thiamine HCl (Vitamin B1) 100 mg DAILY PO 09/25/17 09:00 10/08/17 09:42 Calcium Acetate (Phoslo) 1,334 mg TID PO 09/24/17 13:00 10/08/17 18:07 Hydralazine HCl (Apresoline) 100 mg Q8HR PO 09/25/17 14:00 10/08/17 13:36 Isosorbide Dinitrate (Isordil) 10 mg Q8HR PO 09/25/17 14:00 10/08/17 13:36 Megestrol Acetate (Megace) 40 mg Q12HR PO 09/25/17 10:30 10/08/17 09:42 Spironolactone (Aldactone) 25 mg BID@ PO 09/25/17 22:00 10/08/17 18:07 Levetriacetam 500 mg/Sodium Chloride 105 ml @ 420 mls/hr Q12HR IV 09/26/17 21:00 10/08/17 09:39 Insulin Aspart (NovoLOG SUPPLEMENTAL SCALE) 1 ACHS SLIDING SCALE SQ 09/26/17 12:00 10/06/17 21:29 Pantoprazole Sodium (Protonix) 40 mg DAILY PO 09/27/17 09:00 10/08/17 09:42 Mupirocin (Bactroban Nasal 2% Oint) Taper BID EACH NARE 09/26/17 21:00 09/22/18 20:59 10/07/17 08:01 Levothyroxine Sodium (Synthroid) 25 mcg DAILY@0600 PO 09/28/17 06:00 10/08/17 05:40 Lidocaine HCl (Lidoderm 5% Patch.12 Hr) 1 patch DAILY T-DERMAL 10/02/17 09:00 10/08/17 09:40 Miscellaneous Information 1 Q24H T-DERMAL 10/02/17 21:00 10/06/17 21:00 Temazepam (Restoril) 15 mg HS PRN PO INSOMNIA 10/02/17 21:00 10/02/17 22:10 Alprazolam (Xanax) 0.5 mg Q6H PRN PO anxiety or panic attacks 10/03/17 14:45 10/08/17 19:58 Furosemide (Lasix Inj) 40 mg BID@ IV PUSH 10/03/17 18:00 10/08/17 17:46 Morphine Sulfate (Morphine Inj) 4 mg Q3H PRN IV PUSH breakthrough pain 10/05/17 11:00 10/08/17 19:58 Enoxaparin Sodium (Lovenox Inj) 60 mg Q24H SQ 10/06/17 06:00 10/08/17 05:40 Nicotine (Habitrol 14 Mg Patch.24 Hr) 1 patch DAILY T-DERMAL 10/06/17 15:30 10/08/17 09:41 Miscellaneous Information 1 DAILY T-DERMAL 10/06/17 15:30 10/08/17 09:41 Sodium Chloride 250 ml @ 15 mls/hr ONCE ONCE IV 10/08/17 09:00 10/09/17 01:39 10/08/17 19:11 Objective Remarks GENERAL: Well-nourished, well-developed patient. SKIN: Warm and dry. HEAD: Normocephalic. EYES: No scleral icterus. No injection or drainage. RESPIRATORY: No accessory muscle use. EXTREMITIES: No cyanosis, or edema. NEUROLOGICAL: No obvious focal deficit. Awake, alert, and oriented x3. Assessment/Plan Assessment 1. Coagulopathy: resolved, due to DIC due to sepsis, endocarditis. 2. Thrombocytopenia: improving, due to DIC, sepsis, endocarditis, hypersplenism. Continue to follow CBC 3. Anemia: component of inflammatory anemia. Transfuse for hemoglobin less than 7. Hematuria. Transfused 2 units of PRBC today. 4. Endocarditis, sepsis: currently on antibiotic therapy. ID team following closely. 5. History of IVDA: counseled on abstinence. Maki Izquierdo MD Oct 08, 2017 20:04
[2017-10-08] MEDS: REMOVE OLD LIDOCAINE PATCH T-DERMAL SCH (21:00)
[2017-10-09] VITALS (10 sets, daily range): BP systolic 112–126; BP diastolic 58–67; PULSE 93–111; RESP 18–20; TEMP 97.9–98.6; O2SAT 94–97
[2017-10-09] MEDS: MORPHINE SULFATE 4 MG/ML INJ IV PUSH PRN ×6 (00:26→22:04)
[2017-10-09] MEDS: oxyCODONE/ACETAMINOPHEN 10 MG/325 MG TAB PO PRN ×2 (02:09→06:13)
[2017-10-09] MEDS: CHLORHEXIDINE GLUCONATE 2 % 1 PACK (2 CLOTHS) TOP SCH (04:00)
[2017-10-09] MEDS: hydrALAZINE HCL 100 MG TAB PO SCH ×3 (06:13→22:03)
[2017-10-09] MEDS: ISOSORBIDE DINITRATE 10 MG TAB PO SCH ×3 (06:13→22:03)
[2017-10-09] MEDS: LEVOTHYROXINE SODIUM 25 MCG TAB PO SCH (06:13)
[2017-10-09] MEDS: ENOXAPARIN SODIUM 60 MG/0.6 ML SYRINGE SQ SCH ×2 (06:14→22:04)
[2017-10-09 07:23] LABS: ALBUMIN 4.1 GM/DL (3.4-5.0); DIRECT BILIRUBIN ADULT 0.1 MG/DL (0.0-0.2)
[2017-10-09 07:24] LABS: INDIRECT BILIRUBIN 0.3 MG/DL (0.0-0.8); TOTAL BILIRUBIN ADULT 0.4 MG/DL (0.2-1.0); TOTAL PROTEIN 8.1 GM/DL (6.4-8.2)
[2017-10-09] MEDS: INSULIN ASPART SUPPLEMENTAL SCALE SQ SCH ×4 (08:00→21:00)
[2017-10-09] MEDS: NICOTINE 14 MG/24 HR PATCH T-DERMAL SCH (08:23)
[2017-10-09] MEDS: FUROSEMIDE 40 MG/4 ML VIAL IV PUSH SCH ×2 (08:24→16:56)
[2017-10-09] MEDS: LIDOCAINE HCL 5% PATCH T-DERMAL SCH (08:24)
[2017-10-09] MEDS: CALCIUM ACETATE 667 MG CAP PO SCH ×3 (08:24→16:58)
[2017-10-09] MEDS: amLODIPine BESYLATE 5 MG TAB PO SCH (08:25)
[2017-10-09] MEDS: MEGESTROL ACETATE 40 MG TAB PO SCH ×2 (08:25→22:03)
[2017-10-09] MEDS: PANTOPRAZOLE SOD 40 MG DELAYED RELEASE TAB PO SCH (08:25)
[2017-10-09] MEDS: SPIRONOLACTONE 25 MG TAB PO SCH ×2 (08:25→16:58)
[2017-10-09] MEDS: DOCUSATE SODIUM 50 MG/SENNA 8.6 MG TAB PO SCH ×2 (08:25→21:00)
[2017-10-09] MEDS: THIAMINE HCL 100 MG TAB PO SCH (08:25)
[2017-10-09] MEDS: REMOVE OLD PATCH T-DERMAL SCH (08:26)
[2017-10-09] MEDS: METOPROLOL TARTRATE 25 MG TAB PO SCH ×2 (08:26→22:03)
[2017-10-09] MEDS: ceFAZolin 2 GM PREMIX 50 ML IV SCH ×2 (08:27→16:57)
[2017-10-09] MEDS: SODIUM CHLORIDE 0.9% FLUSH 10 ML FLUSH IV FLUSH SCH ×2 (08:28→22:02)
[2017-10-09] MEDS: MUPIROCIN 2% OINT 1 APPLIC/GM SYR EACH NARE SCH ×2 (08:48→21:00)
--- NOTE | 2017-10-09 10:17 | HHI.IDPN ---
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 Patient also had another admission in July, and at that time her blood cultures grew methicillin sensitive staph aureus. She signed out AGAINST MEDICAL ADVICE again at that time. When she came in this time, her CBC showed pancytopenia. CT of the chest showed evidence of multiple pulmonary septic emboli. 2 blood cultures done are now showing staph aureus. She was also hypotensive, and also had an elevated creatinine. Her urine output has been low. CT of the head did not show any significant abnormality. CT of the abdomen and pelvis showed splenomegaly. Patient currently still lethargic, and moaning. She is complaining of pain throughout her whole body. She is on Celso-Synephrine. Infectious disease consultation has been requested to evaluate the patient. Notes reviewed Temps ok Comfortable Creatinine improving BP ok Her echo showed a large TV veg, with mod to severe TR and an AV veg with moderate AI Antibiotics Ancef Current Medications Medications (Trade) Dose Ordered Sig/Amy Route Start Time Stop Time Status Last Admin (NS Flush) 2 ml UNSCH PRN IV FLUSH 09/16/17 17:00 10/06/17 06:25 (NS Flush) 2 ml BID IV FLUSH 09/16/17 21:00 10/09/17 08:28 (Albuterol Neb) 2.5 mg Q2HR NEB PRN INH 09/16/17 17:00 ([facility] Information) 1 Q361D XX 09/16/17 17:00 09/16/17 20:22 (Chlorhexidine 2% Cloth) 3 pack Taper DAILY@04 TOP 09/17/17 04:00 09/13/18 03:59 09/27/17 03:46 (Chlorhexidine 2% Cloth) 3 pack UNSCH PRN TOP 09/16/17 17:00 (Paula-Colace) 1 tab BID PO 09/16/17 21:00 10/09/17 08:25 (Milk Of Magnesia Liq) 30 ml Q12H PRN PO 09/16/17 17:00 09/19/17 11:19 (Senokot) 17.2 mg Q12H PRN PO 09/16/17 17:00 09/19/17 09:43 (Dulcolax Supp) 10 mg DAILY PRN RECTAL 09/16/17 17:00 09/19/17 11:20 (Lactulose Liq) 30 ml DAILY PRN PO 09/16/17 17:00 09/19/17 07:45 (Phenergan Inj) 25 mg Q6H PRN IM 09/16/17 17:00 10/03/17 07:14 (Percocet 10-325 Mg) 1 tab Q4H PRN PO 09/17/17 08:30 10/09/17 06:13 (Lopressor) 12.5 mg Q12HR PO 09/20/17 00:30 10/09/17 08:26 Cefazolin Sodium/ Dextrose 50 ml @ 100 mls/hr Q12H IV 09/24/17 10:00 10/09/17 08:27 (Norvasc) 10 mg DAILY PO 09/25/17 09:00 10/09/17 08:25 (Vitamin B1) 100 mg DAILY PO 09/25/17 09:00 10/09/17 08:25 (Phoslo) 1,334 mg TID PO 09/24/17 13:00 10/09/17 08:24 (Apresoline) 100 mg Q8HR PO 09/25/17 14:00 10/09/17 06:13 (Isordil) 10 mg Q8HR PO 09/25/17 14:00 10/09/17 06:13 (Megace) 40 mg Q12HR PO 09/25/17 10:30 10/09/17 08:25 (Aldactone) 25 mg BID@,18 PO 09/25/17 22:00 10/09/17 08:25 Levetriacetam 500 mg/Sodium Chloride 105 ml @ 420 mls/hr Q12HR IV 09/26/17 21:00 10/08/17 21:14 (D50w (Vial) Inj) 50 ml UNSCH PRN IV PUSH 09/26/17 09:30 (Glucagon Inj) 1 mg UNSCH PRN OTHER 09/26/17 09:30 (NovoLOG SUPPLEMENTAL SCALE) 1 ACHS SLIDING SCALE SQ 09/26/17 12:00 10/06/17 21:29 (Protonix) 40 mg DAILY PO 09/27/17 09:00 10/09/17 08:25 (Bactroban Nasal 2% Oint) Taper BID EACH NARE 09/26/17 21:00 09/22/18 20:59 10/07/17 08:01 (Synthroid) 25 mcg DAILY@0600 PO 09/28/17 06:00 10/09/17 06:13 (Lidoderm 5% Patch.12 Hr) 1 patch DAILY T-DERMAL 10/02/17 09:00 10/09/17 08:24 Miscellaneous Information 1 Q24H T-DERMAL 10/02/17 21:00 10/08/17 21:00 (Restoril) 15 mg HS PRN PO 10/02/17 21:00 10/02/17 22:10 (Zofran Odt) 4 mg Q6HR PRN SL 10/03/17 14:30 (Xanax) 0.5 mg Q6H PRN PO 10/03/17 14:45 10/08/17 19:58 (Pill Splitter) 1 ea UNSCH PRN OTHER 10/03/17 15:00 (Lasix Inj) 40 mg BID@ IV PUSH 10/03/17 18:00 10/09/17 08:24 (Morphine Inj) 4 mg Q3H PRN IV PUSH 10/05/17 11:00 10/09/17 08:25 (Habitrol 14 Mg Patch.24 Hr) 1 patch DAILY T-DERMAL 10/06/17 15:30 10/09/17 08:23 Miscellaneous Information 1 DAILY T-DERMAL 10/06/17 15:30 10/08/17 09:41 (Lovenox Inj) 60 mg BID SQ 10/09/17 21:00 Lines Line no evidence of infection Past Medical History Hepatitis C Tricuspid valve endocarditis Group A strep sepsis MSSA sepsis Known active IV drug use Allergies: Coded Allergies: No Known Allergies (Unverified Allergy, Unknown, 08/13/17) Objective . Vital Signs Date Time Temp Pulse Resp B/P (MAP) Pulse Ox O2 Delivery O2 Flow Rate FiO2 10/09/17 08:00 98.6 102 20 112/62 (79) 95 10/09/17 07:13 18 10/09/17 04:00 Room Air 10/09/17 03:43 100 10/09/17 03:40 98.5 101 18 126/66 (86) 94 10/09/17 00:00 Room Air 10/08/17 23:42 97 10/08/17 23:07 98.3 103 16 134/73 95 10/08/17 20:00 Room Air 10/08/17 19:49 101 10/08/17 19:30 97.4 107 18 140/77 (98) 98 10/08/17 19:20 97.4 107 18 140/77 98 10/08/17 18:09 95 Room Air 10/08/17 16:24 98.0 108 20 129/70 95 10/08/17 16:05 98.1 104 20 127/74 96 10/08/17 16:00 98.1 84 20 127/74 (91) 96 10/08/17 16:00 108 10/08/17 14:34 97 Nasal Cannula 4.00 10/08/17 12:00 107 10/08/17 12:00 97.9 63 18 164/84 (110) 97 10/08/17 11:00 Nasal Cannula 4.00 . Laboratory Tests Test 10/08/17 07:20 White Blood Count 7.9 TH/MM3 Red Blood Count 2.31 MIL/MM3 Hemoglobin 6.7 GM/DL Hematocrit 19.9 % Mean Corpuscular Volume 86.1 FL Mean Corpuscular Hemoglobin 29.0 PG Mean Corpuscular Hemoglobin Concent 33.6 % Red Cell Distribution Width 20.3 % Platelet Count 98 TH/MM3 Mean Platelet Volume 8.4 FL Neutrophils (%) (Auto) 58.6 % Lymphocytes (%) (Auto) 31.7 % Monocytes (%) (Auto) 8.6 % Eosinophils (%) (Auto) 0.7 % Basophils (%) (Auto) 0.4 % Neutrophils # (Auto) 4.6 TH/MM3 Lymphocytes # (Auto) 2.5 TH/MM3 Monocytes # (Auto) 0.7 TH/MM3 Eosinophils # (Auto) 0.1 TH/MM3 Basophils # (Auto) 0.0 TH/MM3 CBC Comment AUTO DIFF Differential Comment AUTO DIFF CONFIRMED Platelet Estimate LOW Platelet Morphology Comment NORMAL Ovalocytes 1+ Laboratory Tests Test 10/08/17 07:20 10/09/17 05:30 Blood Urea Nitrogen 81 MG/DL Creatinine 1.88 MG/DL Random Glucose 98 MG/DL Calcium Level 9.0 MG/DL Sodium Level 140 MEQ/L Potassium Level 4.0 MEQ/L Chloride Level 106 MEQ/L Carbon Dioxide Level 22.2 MEQ/L Anion Gap 12 MEQ/L Estimat Glomerular Filtration Rate 30 ML/MIN Total Bilirubin 0.4 MG/DL Direct Bilirubin 0.1 MG/DL Indirect Bilirubin 0.3 MG/DL Aspartate Amino Transf (AST/SGOT) 21 U/L Alanine Aminotransferase (ALT/SGPT) 12 U/L Alkaline Phosphatase 86 U/L Lactate Dehydrogenase 157 U/L Total Protein 8.1 GM/DL Albumin 4.1 GM/DL Imaging Cyst Biopsy Asp-Paracentesis US 10/01/17 0000 Signed Impressions: CONCLUSION: Ultrasound-guided abdominal paracentesis as above. Chest X-Ray 09/16/17 1504 Signed Impressions: Service Date/Time: Saturday, September 16, 2017 15:28 - CONCLUSION: 1. Patchy bilateral lower lobe airspace disease, more prominent on the right. Findings are concerning for multilobar pneumonia or aspiration. Zenon Busch MD Head CT 09/16/17 0000 Signed Impressions: Service Date/Time: Saturday, September 16, 2017 17:56 - CONCLUSION: 1. No acute intracranial abnormality. 2. Left maxillary and sphenoid sinus mucosal disease. Zenon Busch MD Chest CT 09/16/17 0000 Signed Impressions: Service Date/Time: Saturday, September 16, 2017 18:04 - CONCLUSION: 1. Small bilateral pleural effusions with dense bilateral lower lobe airspace consolidation. 2. Numerous bilateral inflammatory pulmonary nodules including cavitary nodules in the apices bilaterally. Findings are consistent with septic emboli. Zenon Busch MD Abdomen/Pelvis CT 09/16/17 0000 Signed Impressions: Service Date/Time: Saturday, September 16, 2017 18:04 - CONCLUSION: 1. Limited examination due to paucity of peritoneal fat and patient's overlying arms. 2. Hepatosplenomegaly with small amount of ascites. 3. Small to moderate amount of colonic stool without evidence for bowel obstruction. Zenon Busch MD Physical Exam GENERAL: Awake and alert, NAD SKIN: Warm and dry. No generalized rash, no ecchymoses HEAD: Atraumatic. Normocephalic. No temporal wasting, or tenderness. EYES: Mccarr conjunctiva. No petechia or hemorrhage. Extraocular movements full and intact. EARS, NOSE AND THROAT: Nose without bleeding or purulent nasal discharge. Moist oral mucosa. NECK: Trachea midline. Supple, no meningeal signs CARDIOVASCULAR: Regular rate and rhythm. No murmurs, rubs or gallops heard RESPIRATORY: Clear to auscultation. Breath sounds equal bilaterally. Decreased breath sounds at the bases ABDOMEN: Distended, no guarding, not tender. Bowel sounds present and normoactive. : Dan cath in place, blood tinged urine EXTREMITIES: No clubbing, cyanosis. Has improving bilateral pedal edema. Has intact dressing on leg wound NEUROLOGICAL: Grossly non-focal PSYCHIATRIC: Cooperative LINE: No evidence of infection Assessment & Plan Remarks IMPRESSION Sepsis with shock, due to endocarditis - BP stable - has MOSF - previously had GAS, then MSSA - now MSSA MSSA endocarditis - echo with large TV veg and now also with AV veg Has pulmonary septic emboli Has UTI Renal failure, improving - received steroids (D/C 10/08) Thrombocytopenia improving Anemia Known very poor compliance to medical Rx DIC, better New SZ - MRI negative - MRI brain negative - no recurrent SZ (+) UC with VRE, S/P Rx RECOMMENDATION Continue Ancef, increase dose since creatinine better Progression of infection due to poor compliance to medical treatment Monitor progress She will need a course of IV antibiotics for her endocarditis - give 6 weeks of IV Abx from date of last (+) BC - anticipated end date is October 29 Patient not surgical candidate per CTS Milana Harp MD Oct 09, 2017 10:17
[2017-10-09] MEDS: levETIRAcetam INJ 500 MG in SODIUM CHLORIDE 0.9% INJ 100 ML IV SCH ×2 (10:53→22:03)
[2017-10-09 12:16] LABS: HEMATOCRIT 28.2 % (35.0-46.0); HEMOGLOBIN 9.4 GM/DL (11.6-15.3)
--- NOTE | 2017-10-09 13:39 | HHI.NPPN ---
Subjective History of Present Illness Patient is a 37-year-old with IVDA and endocarditis with acute renal failure Additional Remarks Her clinical condition , still tired Review of Systems General Constitutional: Fatigue Musculoskeletal MS: Pain/Stiffness Objective Data Data 10/09/17 10/10/17 18:59 06:59 Intake Total 50 ml Balance 50 ml IV Total 50 ml Vital Signs Date Time Temp Pulse Resp B/P (MAP) Pulse Ox O2 Delivery O2 Flow Rate FiO2 10/09/17 12:00 98.0 102 20 118/62 (80) 97 10/09/17 11:59 95 21 10/09/17 08:30 16 10/09/17 08:00 98.6 102 20 112/62 (79) 95 10/09/17 08:00 Room Air 10/09/17 07:13 18 10/09/17 04:00 Room Air 10/09/17 03:43 100 10/09/17 03:40 98.5 101 18 126/66 (86) 94 10/09/17 00:00 Room Air 10/08/17 23:42 97 10/08/17 23:07 98.3 103 16 134/73 95 10/08/17 20:00 Room Air 10/08/17 19:49 101 10/08/17 19:30 97.4 107 18 140/77 (98) 98 10/08/17 19:20 97.4 107 18 140/77 98 10/08/17 18:09 95 Room Air 10/08/17 16:24 98.0 108 20 129/70 95 10/08/17 16:05 98.1 104 20 127/74 96 10/08/17 16:00 98.1 84 20 127/74 (91) 96 10/08/17 16:00 108 10/08/17 14:34 97 Nasal Cannula 4.00 -: 10/09/17 1110 10/08/17 0720 Physical Exam General Appearance: No Acute Distress, Pale, Anxious Neck Neck Exam: Neck Supple Pulmonary Resp Exam: Decreased Bases Cardiology CV Exam: Regular, Murmur Gastrointestinal/Abdomen GI Exam: Soft, Non-Tender, Distended, Bowel Sounds Hypoactive Integumentary Skin Exam: Ulcer(s) Extremeties Extremities Exam: Moderate Edema Neurologic Neuro Exam: Alert, Awake, Oriented Assessment/Plan Problem List: (1) Acute renal failure ICD Codes: N17.9 - Acute kidney failure, unspecified Plan: This is likely due to underlying endocarditis and severe infection, post infectious GN. . 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 GILLESPIE? Check REJI/ANCA/HIV/cryoglobulin unfortunately she has Endocarditis and Cr high for angiogram C3 low on Solumedrol 40 mg IV will stop it as ARF better cr declined 1.8 responding UOP 6.2 L Hb 9.4 on Aldactone/ Lasix 40 mg bid Monitor for electrolytes abnormalities. Negative ANCA/REJI/ cryoglobulin positive Since kidney function is improving is resolving most likely it is postinfectious lower nephritis but for some reason if creatinine starts going back that he might plan to do kidney biopsy She will need treatment for hepatitis C with antiviral treatment (2) Endocarditis ICD Codes: I38 - Endocarditis, valve unspecified Status: Acute Plan: Due to IVDA Vegetation on Tricuspid valve and also Aortic valve.septic pulmonary emboli Not a candidate for surgery per CTS. ID following. (3) Severe sepsis ICD Codes: A41.9 - Sepsis, unspecified organism; R65.20 - Severe sepsis without septic shock Status: Acute Plan: Staph aureus septicemia Azalea Gillette MD Oct 09, 2017 13:39
[2017-10-09 14:39] LABS: BICARBONATE 24.1 MEQ/L (21.0-32.0); CALCIUM 9.9 MG/DL (8.5-10.1); CREATININE 1.61 MG/DL (0.50-1.00)
--- NOTE | 2017-10-09 16:03 | HHI.PR ---
Subjective Remarks Patient has thoughts of leaving the hospital, I explained to her that that is addictive thinking that she needs to practice on the small scale aligning her mind with productive, solution based thinking rather than escapism. Objective Vitals Vital Signs Date Time Temp Pulse Resp B/P (MAP) Pulse Ox O2 Delivery O2 Flow Rate FiO2 10/09/17 12:00 98.0 102 20 118/62 (80) 97 10/09/17 11:59 95 21 10/09/17 08:30 16 10/09/17 08:00 98.6 102 20 112/62 (79) 95 10/09/17 08:00 Room Air 10/09/17 07:13 18 10/09/17 04:00 Room Air 10/09/17 03:43 100 10/09/17 03:40 98.5 101 18 126/66 (86) 94 10/09/17 00:00 Room Air 10/08/17 23:42 97 10/08/17 23:07 98.3 103 16 134/73 95 10/08/17 20:00 Room Air 10/08/17 19:49 101 10/08/17 19:30 97.4 107 18 140/77 (98) 98 10/08/17 19:20 97.4 107 18 140/77 98 10/08/17 18:09 95 Room Air 10/08/17 16:24 98.0 108 20 129/70 95 10/08/17 16:05 98.1 104 20 127/74 96 I/O 10/08/17 10/08/17 10/08/17 10/09/17 10/09/17 10/09/17 07:00 15:00 23:00 07:00 15:00 23:00 Intake Total 340 ml 1035 ml 550 ml 770 ml Output Total 4203 ml 2000 ml 1300 ml Balance 340 ml -3168 ml -1450 ml -530 ml Intake Oral 340 ml 480 ml 90 ml 720 ml IV Total 155 ml 50 ml Packed Cells 400 ml 400 ml Blood Product IV Normal Saline Flush 60 ml Output Urine Total 4200 ml 2000 ml 1300 ml Stool Total 3 ml # Bowel Movements 0 1 Result Diagram: 10/09/17 1110 10/09/17 1351 Objective Remarks GENERAL: appears older than stated age SKIN: Warm and dry. HEAD: Normocephalic. EYES: No scleral icterus. No injection or drainage. NECK: Supple, trachea midline. No JVD or lymphadenopathy. CARDIOVASCULAR: Sinus tachycardia without murmurs, gallops, or rubs. RESPIRATORY: Diminished bases, clear otherwise. No accessory muscle use. GASTROINTESTINAL: Abdomen round, mildly tender, fluid-filled, nonacute EXTREMITIES: No cyanosis, or edema. NEUROLOGICAL: Awake, alert, and oriented x 3. Non-focal. A/P Problem List: (1) Endocarditis ICD Code: I38 - Endocarditis, valve unspecified Status: Acute (2) Septic pulmonary embolism ICD Code: I26.90 - Septic pulmonary embolism without acute cor pulmonale Status: Acute Assessment and Plan 37-year-old female admitted with Severe Sepsis with shock and organ failure related to 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 Septic pulmonary emboli Tricuspid valve vegetation with severe tricuspid regurg , MSSA endocarditis Right lower leg abscess (septic emboli) continue linezolid and cefazolin Appreciate infectious disease consult Respiratory distress, septic versus thrombotic pulmonary emboli VQ scan shows intermediate probability, d-dimer was 12 Continue therapeutic dose of Lovenox (renally dosed) Respiratory distress is resolved at this point Addiction behavior Now the patient's physical health is improving she is exhibiting thoughts of escapism I keep encouraging her to focus on positive solutions rather than running from the problems that life presents Anemia Iron studies consistent with anemia of chronic disease, hematuria is likely a partial contributor Hemoglobin 6.8, now 9.4 following 2 units of packed red blood cells Generalized weakness Work with physical therapy to improve strength and ambulation Anxiety and panic attacks Responding well to Xanax Gross hematuria and microscopic pyuria Nephrology feels hematuria could be related to postinfectious glomerulonephritis (strep versus hep C). Noncontrast ct abd negative, Urine culture is negative Stable on increased dose of Lovenox Acute on chronic kidney injury Creatinine trend continues to improve Acute encephalopathy, Narcotic Withdraw Continue on Percocet 10/325 mg p.o. every 4 hourly as needed for pain/withdraw Encephalopathy has resolved No sign of withdrawal Abdominal distention/ascites Secondary to heart failure as LFTs wnl CT abd with stable hepatosplenomegaly S/p paracentesis 09/25 with 1.4L removed and 10/01 with 2L removed Continue with Lasix diuresis Severe sepsis with multiorgan failure Acute Renal Failure, cardiorenal syndrome Diastolic CHF secondary to valvulopathy. Pulmonary hypertension Following creatinine Appreciate nephrology following DVT Prophylaxis Therapeutic Lovenox Zarate,Navdeep Burke MD Oct 09, 2017 16:03
[2017-10-09] MEDS: REMOVE OLD LIDOCAINE PATCH T-DERMAL SCH (21:00)
[2017-10-10] VITALS (10 sets, daily range): BP systolic 106–122; BP diastolic 58–68; PULSE 91–108; RESP 18–22; TEMP 97.6–98.6; O2SAT 94–97
[2017-10-10] MEDS: ceFAZolin 2 GM PREMIX 50 ML IV SCH ×3 (02:18→18:09)
[2017-10-10] MEDS: MORPHINE SULFATE 4 MG/ML INJ IV PUSH PRN ×5 (02:18→18:10)
[2017-10-10] MEDS: CHLORHEXIDINE GLUCONATE 2 % 1 PACK (2 CLOTHS) TOP SCH (04:00)
[2017-10-10] MEDS: hydrALAZINE HCL 100 MG TAB PO SCH ×2 (06:43→13:45)
[2017-10-10] MEDS: LEVOTHYROXINE SODIUM 25 MCG TAB PO SCH (06:43)
[2017-10-10] MEDS: ISOSORBIDE DINITRATE 10 MG TAB PO SCH ×2 (06:43→13:41)
[2017-10-10 06:54] LABS: BICARBONATE 20.9 MEQ/L (21.0-32.0); CREATININE 1.52 MG/DL (0.50-1.00)
[2017-10-10] MEDS: INSULIN ASPART SUPPLEMENTAL SCALE SQ SCH ×3 (08:00→18:28)
[2017-10-10 08:49] LABS: AUTOMATED NEUTROPHIL # 6.5 TH/MM3 (1.8-7.7); BASOPHIL % 0.3 % (0.0-2.0); EOSINOPHIL % 0.5 % (0.0-4.0); HEMATOCRIT 33.2 % (35.0-46.0); HEMOGLOBIN 11.1 GM/DL (11.6-15.3); LYMPH % 5.7 % (9.0-44.0); LYMPHOCYTE # 0.4 TH/MM3 (1.0-4.8); MEAN CELL VOLUME 89.6 FL (80.0-100.0); MEAN CORPUSCULAR HEMOGLOBIN 29.8 PG (27.0-34.0); MEAN CORPUSCULAR HGB CONC 33.3 % (32.0-36.0); MEAN PLATELET VOLUME 9.9 FL (7.0-11.0); MONO % 7.9 % (0.0-8.0); MONOCYTE # 0.6 TH/MM3 (0-0.9); NEUT % 85.6 % (16.0-70.0); PLATELET COUNT 176 TH/MM3 (150-450); RED BLOOD COUNT 3.71 MIL/MM3 (4.00-5.30); RED CELL DISTRIBUTION WIDTH 15.3 % (11.6-17.2); WHITE BLOOD COUNT 7.6 TH/MM3 (4.0-11.0)
[2017-10-10] MEDS: DOCUSATE SODIUM 50 MG/SENNA 8.6 MG TAB PO SCH (09:00)
[2017-10-10] MEDS: MUPIROCIN 2% OINT 1 APPLIC/GM SYR EACH NARE SCH (09:00)
[2017-10-10] MEDS: REMOVE OLD PATCH T-DERMAL SCH (09:00)
[2017-10-10] MEDS: METOPROLOL TARTRATE 25 MG TAB PO SCH (09:00)
[2017-10-10] MEDS: THIAMINE HCL 100 MG TAB PO SCH (09:56)
[2017-10-10] MEDS: PANTOPRAZOLE SOD 40 MG DELAYED RELEASE TAB PO SCH (09:57)
[2017-10-10] MEDS: CALCIUM ACETATE 667 MG CAP PO SCH ×3 (09:57→18:13)
[2017-10-10] MEDS: MEGESTROL ACETATE 40 MG TAB PO SCH (09:57)
[2017-10-10] MEDS: SPIRONOLACTONE 25 MG TAB PO SCH ×2 (09:58→18:10)
[2017-10-10] MEDS: SODIUM CHLORIDE 0.9% FLUSH 10 ML FLUSH IV FLUSH SCH (09:58)
[2017-10-10] MEDS: amLODIPine BESYLATE 5 MG TAB PO SCH (09:58)
[2017-10-10] MEDS: ENOXAPARIN SODIUM 60 MG/0.6 ML SYRINGE SQ SCH (09:59)
[2017-10-10] MEDS: NICOTINE 14 MG/24 HR PATCH T-DERMAL SCH (10:03)
[2017-10-10] MEDS: LIDOCAINE HCL 5% PATCH T-DERMAL SCH (10:03)
[2017-10-10] MEDS: levETIRAcetam INJ 500 MG in SODIUM CHLORIDE 0.9% INJ 100 ML IV SCH (11:40)
[2017-10-10] MEDS: FUROSEMIDE 40 MG/4 ML VIAL IV PUSH SCH ×2 (11:41→18:00)
--- NOTE | 2017-10-10 15:13 | HHI.NPPN ---
Subjective History of Present Illness Patient is a 37-year-old with IVDA and endocarditis with acute renal failure Additional Remarks Her clinical condition , still tired Review of Systems General Constitutional: Fatigue Musculoskeletal MS: Pain/Stiffness Objective Data Data Vital Signs Date Time Temp Pulse Resp B/P (MAP) Pulse Ox O2 Delivery O2 Flow Rate FiO2 10/10/17 11:48 97.6 103 18 119/66 (83) 96 10/10/17 11:37 96 10/10/17 08:00 Room Air 21 10/10/17 07:55 98.5 103 18 107/58 (74) 96 10/10/17 05:04 98.5 100 22 122/68 (86) 96 10/10/17 04:05 99 10/10/17 00:00 98.6 91 22 106/60 (75) 94 10/09/17 23:48 93 10/09/17 20:00 Room Air 10/09/17 20:00 97.9 102 20 121/67 (85) 97 10/09/17 19:49 100 10/09/17 17:00 101 10/09/17 16:00 98.4 111 20 125/58 (80) 96 -: 10/10/17 0755 10/10/17 0450 Physical Exam General Appearance: No Acute Distress, Pale, Anxious Neck Neck Exam: Neck Supple Pulmonary Resp Exam: Decreased Bases Cardiology CV Exam: Regular, Murmur Gastrointestinal/Abdomen GI Exam: Soft, Non-Tender, Distended, Bowel Sounds Hypoactive Integumentary Skin Exam: Ulcer(s) Extremeties Extremities Exam: Moderate Edema Neurologic Neuro Exam: Alert, Awake, Oriented Assessment/Plan Problem List: (1) Acute renal failure ICD Codes: N17.9 - Acute kidney failure, unspecified Plan: This is likely due to underlying endocarditis and severe infection, post infectious GN. . 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 GILLESPIE? Check REJI/ANCA/HIV/cryoglobulin unfortunately she has Endocarditis and Cr high for angiogram C3 low on Solumedrol 40 mg IV will stop it as ARF better cr declined 1.5 on Aldactone/ Lasix 40 mg bid Monitor for electrolytes abnormalities. Negative ANCA/REJI/ cryoglobulin positive Cr 1.5 She will need treatment for hepatitis C with antiviral treatment (2) Endocarditis ICD Codes: I38 - Endocarditis, valve unspecified Status: Acute Plan: Due to IVDA Vegetation on Tricuspid valve and also Aortic valve.septic pulmonary emboli Not a candidate for surgery per CTS. ID following. (3) Severe sepsis ICD Codes: A41.9 - Sepsis, unspecified organism; R65.20 - Severe sepsis without septic shock Status: Acute Plan: Staph aureus septicemia Azalea Gillette MD Oct 10, 2017 15:13
--- NOTE | 2017-10-10 17:30 | HHI.PR ---
Subjective Remarks Patient says she has more energy following her blood transfusion. She is doing her best to fight thoughts of leaving the hospital, she recognizes this as part of her addiction after we had a talk. Objective Vitals Vital Signs Date Time Temp Pulse Resp B/P (MAP) Pulse Ox O2 Delivery O2 Flow Rate FiO2 10/10/17 16:01 106 10/10/17 11:53 103 10/10/17 11:48 97.6 103 18 119/66 (83) 96 10/10/17 11:37 96 10/10/17 08:05 101 10/10/17 08:00 Room Air 21 10/10/17 07:55 98.5 103 18 107/58 (74) 96 10/10/17 05:04 98.5 100 22 122/68 (86) 96 10/10/17 04:05 99 10/10/17 00:00 98.6 91 22 106/60 (75) 94 10/09/17 23:48 93 10/09/17 20:00 Room Air 10/09/17 20:00 97.9 102 20 121/67 (85) 97 10/09/17 19:49 100 I/O 10/09/17 10/09/17 10/09/17 10/10/17 10/10/17 10/10/17 07:00 15:00 23:00 07:00 15:00 23:00 Intake Total 550 ml 870 ml 50 ml Output Total 2000 ml 1300 ml 2551 ml Balance -1450 ml -430 ml 50 ml -2551 ml Intake Oral 90 ml 720 ml IV Total 150 ml 50 ml Packed Cells 400 ml Blood Product IV Normal Saline Flush 60 ml Output Urine Total 2000 ml 1300 ml 2550 ml Stool Total 1 ml # Bowel Movements 0 1 Result Diagram: 10/10/17 0755 10/10/17 0450 Objective Remarks GENERAL: appears older than stated age SKIN: Warm and dry. HEAD: Normocephalic. EYES: No scleral icterus. No injection or drainage. NECK: Supple, trachea midline. No JVD or lymphadenopathy. CARDIOVASCULAR: Sinus tachycardia without murmurs, gallops, or rubs. RESPIRATORY: Diminished bases, clear otherwise. No accessory muscle use. GASTROINTESTINAL: Abdomen round, mildly tender, fluid-filled, nonacute EXTREMITIES: No cyanosis, or edema. NEUROLOGICAL: Awake, alert, and oriented x 3. Non-focal. A/P Problem List: (1) Endocarditis ICD Code: I38 - Endocarditis, valve unspecified Status: Acute (2) Septic pulmonary embolism ICD Code: I26.90 - Septic pulmonary embolism without acute cor pulmonale Status: Acute Assessment and Plan 37-year-old female admitted with Severe Sepsis with shock and organ failure related to 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 Septic pulmonary emboli Tricuspid valve vegetation with severe tricuspid regurg , MSSA endocarditis Right lower leg abscess (septic emboli) continue linezolid and cefazolin Appreciate infectious disease consult Respiratory distress, septic versus thrombotic pulmonary emboli VQ scan shows intermediate probability, d-dimer was 12 Continue therapeutic dose of Lovenox (renally dosed) Respiratory distress is resolved at this point Addiction behavior Now the patient's physical health is improving she is exhibiting thoughts of escapism I keep encouraging her to focus on positive solutions rather than running from the problems that life presents Anemia Iron studies consistent with anemia of chronic disease, hematuria is likely a partial contributor Hemoglobin 6.8, now 9.4 following 2 units of packed red blood cells Repeat CBC in a.m. Generalized weakness Work with physical therapy to improve strength and ambulation Anxiety and panic attacks Responding well to Xanax Gross hematuria and microscopic pyuria Nephrology feels hematuria could be related to postinfectious glomerulonephritis (strep versus hep C). Noncontrast ct abd negative, Urine culture is negative Stable on increased dose of Lovenox Acute on chronic kidney injury Creatinine trend continues to improve Acute encephalopathy, Narcotic Withdraw Continue on Percocet 10/325 mg p.o. every 4 hourly as needed for pain/withdraw Encephalopathy has resolved No sign of withdrawal Abdominal distention/ascites Secondary to heart failure as LFTs wnl CT abd with stable hepatosplenomegaly S/p paracentesis 09/25 with 1.4L removed and 10/01 with 2L removed Continue with Lasix diuresis Severe sepsis with multiorgan failure Acute Renal Failure, cardiorenal syndrome Diastolic CHF secondary to valvulopathy. Pulmonary hypertension Following creatinine Appreciate nephrology following DVT Prophylaxis Therapeutic Lovenox Navdeep Zarate MD Oct 10, 2017 17:30
[2017-10-10] MEDS: ALPRAZolam 0.5 MG TAB PO PRN (19:05)
== END 2017-10-10 19:41 | disposition left against medical advice (07) | DRG 871 ==
LOC: NEPC 14:53 → NEDA 16:41 → HIMN 18:20 → N04B 09-22 22:54 → N03A 09-26 08:55 → N04B 10-01 11:37
PROVIDERS: ADMIT Internal Medicine; ATTEND Internal Medicine
PROC: 30233N1 Transfusion of Nonautologous Red Blood Cells into Peripheral Vein, Percutaneous Approach (ICD-10-PCS; principal; 2017-09-16)
PROC: 5A2204Z Restoration of Cardiac Rhythm, Single (ICD-10-PCS; 2017-09-19)
PROC: 0W9G3ZZ Drainage of Peritoneal Cavity, Percutaneous Approach (ICD-10-PCS; 2017-09-25)
PROC: 0W9G3ZZ Drainage of Peritoneal Cavity, Percutaneous Approach (ICD-10-PCS; 2017-10-01)
DX: A41.01 Sepsis due to Methicillin susceptible Staphylococcus aureus (principal); R65.21 Severe sepsis with septic shock; I26.90 Septic pulmonary embolism without acute cor pulmonale; D65 Disseminated intravascular coagulation [defibrination syndrome]; N17.0 Acute kidney failure with tubular necrosis; G93.40 Encephalopathy, unspecified; R18.8 Other ascites; I33.0 Acute and subacute infective endocarditis; D61.818 Other pancytopenia; I47.1 Supraventricular tachycardia; E44.0 Moderate protein-calorie malnutrition; L02.415 Cutaneous abscess of right lower limb; N39.0 Urinary tract infection, site not specified; E87.2 Acidosis; I50.30 Unspecified diastolic (congestive) heart failure; I13.0 Hypertensive heart and chronic kidney disease with heart failure and stage 1 through stage 4 chronic kidney disease, or unspecified chronic kidney disease; I76 Septic arterial embolism; F11.23 Opioid dependence with withdrawal; G40.89 Other seizures; I27.20 Pulmonary hypertension, unspecified; I08.3 Combined rheumatic disorders of mitral, aortic and tricuspid valves; R16.2 Hepatomegaly with splenomegaly, not elsewhere classified; E83.39 Other disorders of phosphorus metabolism; F14.10 Cocaine abuse, uncomplicated; B19.20 Unspecified viral hepatitis C without hepatic coma; E86.0 Dehydration; F32.9 Major depressive disorder, single episode, unspecified; Z21 Asymptomatic human immunodeficiency virus [HIV] infection status; F17.210 Nicotine dependence, cigarettes, uncomplicated; F13.10 Sedative, hypnotic or anxiolytic abuse, uncomplicated; E87.6 Hypokalemia; N89.8 Other specified noninflammatory disorders of vagina; D73.1 Hypersplenism; F41.0 Panic disorder [episodic paroxysmal anxiety]; N18.9 Chronic kidney disease, unspecified; B95.2 Enterococcus as the cause of diseases classified elsewhere; D63.8 Anemia in other chronic diseases classified elsewhere; E16.2 Hypoglycemia, unspecified; R31.0 Gross hematuria; R06.03 Acute respiratory distress; R19.7 Diarrhea, unspecified; Z91.19 Patient's noncompliance with other medical treatment and regimen; Z79.2 Long term (current) use of antibiotics; Z91.11 Patient's noncompliance with dietary regimen
CPT/HCPCS: 36430; 36600; 49083; 70450; 70551; 71045; 71046; 71250; 74018; 74176; 76700; 76705; 76937; 78582; 80048; 80053; 80069; 80074; 80076; 80202; 80307; 81001; 82042; 82140; 82150; 82550; 82570; 82595; 82805; 82948; 83010; 83540; 83550; 83605; 83615; 83690; 83735; 83880; 84100; 84132; 84146; 84155; 84300; 84439; 84443; 84481; 84484; 84702; 85007; 85014; 85018; 85025; 85027; 85049; 85379; 85384; 85610; 85730; 86021; 86038; 86160; 86403; 86850; 86900; 86901; 86920; 87040; 87070; 87077; 87086; 87186; 87205; 87210; 87389; 87491; 87493; 87522; 87591; 87641; 87902; 89051; 93005; 93308; 93970; 94150; 94640; 94664; 95819; 96365; 96367; A9540; A9567; C1729; G0475; J0153; J0610; J0690; J1644; J1650; J1815; J1940; J1953; J2270; J2370; J2543; J2550; J2700; J2920; J3370; J3475; J3480; J7030; J7050; J7060; J7120; P9016; P9047

== ENCOUNTER 2017-10-14 19:25 | Inpatient (IN) | payer MEDICAID ==
[2017-10-14] VITALS (8 sets, daily range): BP systolic 111–143; BP diastolic 58–66; PULSE 97–109; RESP 17–34; TEMP 98.2–98.5; O2SAT 88–99
[~2017-10-14] VITALS: Ht 157.5 cm; Wt 60.5 kg
[2017-10-14] MEDS ORDERED: SODIUM CHLOR 0.9% 1000 ML INJ 1,000 ML IV ONE ×2 (19:34→20:33)
[2017-10-14] MEDS ORDERED: DEXTROSE 50% IN WATER 50 ML SYRINGE IV PUSH ONE (19:45)
--- NOTE | 2017-10-14 19:49 | PD ---
Data Data Last Documented VS Vital Signs Date Time Temp Pulse Resp B/P (MAP) Pulse Ox O2 Delivery O2 Flow Rate FiO2 10/14/17 21:28 97 18 127/66 (86) 97 Nasal Cannula 2.00 10/14/17 19:29 98.5 Orders Orders Sepsis Workup Initiated (10/14/17 ) Electrocardiogram (10/14/17 19:34) Complete Blood Count With Diff (10/14/17 19:34) Comprehensive Metabolic Panel (10/14/17 19:34) Prothrombin Time / Inr (Pt) (10/14/17 19:34) Act Partial Throm Time (Ptt) (10/14/17 19:34) Lactic Acid Sepsis Protocol (10/14/17 19:34) Magnesium (Mg) (10/14/17 19:34) Lipase (10/14/17 19:34) Urinalysis - C+S If Indicated (10/14/17 19:34) Blood Culture (10/14/17 19:34) Chest, Single Ap (10/14/17 19:34) Blood Glucose (10/14/17 19:34) Ecg Monitoring (10/14/17 19:34) Iv Access Insert/Monitor (10/14/17 19:34) Cath For Specimen (10/14/17 19:34) Oximetry (10/14/17 19:34) Oxygen Administration (10/14/17 19:34) Ct Abd/Pel W/O Iv Contrast (10/14/17 19:34) Sodium Chlor 0.9% 1000 Ml Inj (Ns 1000 M (10/14/17 19:34) Dextrose 50% In [place] (Syr) Inj (D50w (Syr (10/14/17 19:45) Ct Thorax/ Chest Wo Iv Contras (10/14/17 ) Urinary Catheter Insert/Apply (10/14/17 19:58) Urine Culture (10/14/17 19:47) Vancomycin Inj (Vancomycin Inj) (10/14/17 20:45) Piperacil-Tazo 3.375 Gm Premix (Zosyn 3. (10/14/17 20:45) Sodium Chlor 0.9% 1000 Ml Inj (Ns 1000 M (10/14/17 20:33) Sodium Chlor 0.9% 1000 Ml Inj (Ns 1000 M (10/14/17 20:33) Metronidazole (Flagyl) (10/14/17 20:45) B-Type Natriuretic Peptide (10/14/17 20:39) Sodium Bicarbonate 8.4% Inj (Sodium Bica (10/14/17 21:45) Admit Order (Ed Use Only) (10/14/17 21:49) Arterial Blood Gas (Abg) (10/14/17 ) Labs Laboratory Tests Test 10/14/17 19:46 10/14/17 19:47 10/14/17 21:45 White Blood Count 10.5 TH/MM3 Red Blood Count 2.64 MIL/MM3 Hemoglobin 7.6 GM/DL Hematocrit 23.4 % Mean Corpuscular Volume 88.7 FL Mean Corpuscular Hemoglobin 28.8 PG Mean Corpuscular Hemoglobin Concent 32.5 % Red Cell Distribution Width 19.7 % Platelet Count 109 TH/MM3 Mean Platelet Volume 9.6 FL Neutrophils (%) (Auto) 84.6 % Lymphocytes (%) (Auto) 7.0 % Monocytes (%) (Auto) 8.2 % Eosinophils (%) (Auto) 0.0 % Basophils (%) (Auto) 0.2 % Neutrophils # (Auto) 8.9 TH/MM3 Lymphocytes # (Auto) 0.7 TH/MM3 Monocytes # (Auto) 0.9 TH/MM3 Eosinophils # (Auto) 0.0 TH/MM3 Basophils # (Auto) 0.0 TH/MM3 CBC Comment DIFF FINAL Differential Comment Prothrombin Time 24.2 SEC Prothromb Time International Ratio 2.4 RATIO Activated Partial Thromboplast Time 39.7 SEC Blood Urea Nitrogen 66 MG/DL Creatinine 2.02 MG/DL Random Glucose 35 MG/DL Total Protein 8.6 GM/DL Albumin 4.5 GM/DL Calcium Level 8.8 MG/DL Magnesium Level 2.1 MG/DL Alkaline Phosphatase 906 U/L Aspartate Amino Transf (AST/SGOT) 4267 U/L Alanine Aminotransferase (ALT/SGPT) 1214 U/L Total Bilirubin 2.3 MG/DL Sodium Level 135 MEQ/L Potassium Level 5.6 MEQ/L Chloride Level 105 MEQ/L Carbon Dioxide Level 8.5 MEQ/L Anion Gap 22 MEQ/L Estimat Glomerular Filtration Rate 28 ML/MIN Lactic Acid Level 9.2 mmol/L 5.6 mmol/L B-Type Natriuretic Peptide 625 PG/ML Lipase 968 U/L Urine Color Komal Urine Turbidity CLOUDY Urine pH 5.0 Urine Specific [place] 1.024 Urine Protein >=500 mg/dL Urine Glucose (UA) 50 mg/dL Urine Ketones TRACE mg/dL Urine Occult Blood LARGE Urine Nitrite NEG Urine Bilirubin NEG Urine Urobilinogen LESS THAN 2 mg/dL Urine Leukocyte Esterase NEG Urine RBC 73 /hpf Urine WBC 35 /hpf Urine Squamous Epithelial Cells 1 /hpf Urine Amorphous Sediment FEW Urine Bacteria RARE /hpf Microscopic Urinalysis Comment CATH-CULTURE IND Blood Gas Puncture Site RT RADIAL Blood Gas Patient Temperature 98.6 Blood Gas HCO3 11 mmol/L Blood Gas Base Excess -14.1 mmol/L Blood Gas Oxygen Saturation 88 % Arterial Blood pH 7.31 Arterial Blood Partial Pressure CO2 23 mmHg Arterial Blood Partial Pressure O2 74 mmHg Arterial Blood Oxygen Content 9.0 Vol % Arterial Blood Carboxyhemoglobin 1.6 % Arterial Blood Methemoglobin 1.6 % Blood Gas Hemoglobin 7.2 G/DL Oxygen Delivery Device NASAL CANNULA Blood Gas Liter Flow 2 L/M MDM Medical Record Reviewed: Yes Supervised Visit with ALPHONSE: Yes Narrative Course I, Dr. Roberto, have reviewed the advance practice practitioner's documentation and am in agreement, met with the patient face to face, made the diagnosis, and the medical decision making was done by me. The patient was initially evaluated by Mitali, the nurse practitioner. Please see their complete history and physical. *My assessment and Findings: The patient presents with a history of diarrhea that began earlier today. The patient has a past medical history significant for recent admission in August through September with endocarditis and septic emboli related to IV drug use. The patient unfortunately left the hospital AGAINST MEDICAL ADVICE during that admission. During the course of the patient's emergency department visit, the patient's history, examination, and differential diagnosis were reviewed with the patient. The patient was placed on a surveillance monitor with oximetry and frequent blood pressure monitoring. The patient had IV access obtained and blood work sent for analysis. The patient had an EKG done on arrival that shows a year rate of 106, QRS duration 95 ms, QTC [address] segment elevation. T waves are inverted in V1. The patient was initially provided normal saline at 30 mL/kg IV fluid bolus after lactate was noted to be elevated at 9, broad-spectrum antibiotic coverage was started with Zosyn and vancomycin. The patient's laboratory studies were reviewed and remarkable for a white count of 10.5, hemoglobin 7.6, platelets 109 with 84.6 neutrophils, CMP is remarkable for sodium of 135, potassium 5.6, BUN 66, creatinine 2.02, CO2 8.5, glucose 35, however glucose was noted to be low on admission and had already been treated with dextrose, lactic acid 9.2, total bilirubin 2.3, AST 4267, ALT 1214, alk phos 906, total protein is 8.6, lipase is elevated at 968, BNP is elevated at 625. Patient is coagulopathic with a PT of 24.2, INR 2.4, PTT 39.7, urinalysis shows complete cloudy urine trace ketones large blood 73 RBCs 35 WBCs rare bacteria. Radiology studies were reviewed and remarkable for Last Impressions Chest X-Ray 10/14/171933 Signed Impressions: CONCLUSION: Bilateral airspace disease improved from October 03. Small effusions. Abdomen/Pelvis CT 10/14/171933 Signed Impressions: CONCLUSION: 1. There is mild mural thickening of the left colon most characteristic of a m ild colitis. 2. Improvement in pleural effusions and basilar lung consolidation since September 30. 3. Persistent ascites and diffuse anasarca. Dan catheter present in bladder. Chest CT 10/14/17 0000 Signed Impressions: CONCLUSION: 1. Improved pleural effusions with decrease in size on the right and near comp lete resolution of the left effusion. 2. Overall basilar lung consolidation has improved. 3. There are several new areas of small cavitation in the upper lungs and a mi xed pattern with some areas of consolidation improving and some of which are ne w. 4. No pericardial effusion. A CT scan of the abdomen and pelvis revealed evidence of colitis. Differential diagnosis in this patient includes ischemic bowel from septic emboli, versus C. difficile colitis as the patient has been on broad-spectrum antibiotic recently. Flagyl was added to her antibiotic regimen. The patient's results were discussed with the patient, including the plan of care. I explained that further testing and/ or monitoring is indicated based on the patient's history, examination, and/ or laboratory findings. Therefore, I recommended admission for additional evaluation. The patient expressed understanding and was agreeable with this plan. The patient was admitted to the hospital in critical condition and sent to a bed under the care of the legislative assistant service. Critical Care Narrative Aggregate critical care time was 32 minutes. Time to perform other separately billable procedures was not included in the critical care time. My time did not include minutes spent treating any other patients simultaneously or on activities that did not directly contribute to the patient's treatment. The services I provided to this patient were to treat and/or prevent clinically significant deterioration that could result in: Fluid overload with respiratory failure from crystalloid resuscitation due to sepsis, versus cardiovascular collapse from sepsis I provided critical care services requiring my management, as noted below: Chart data review, documentation time, medication orders and management, vital sign assessments/reviewing monitor data, ordering and reviewing lab tests, ordering and interpreting/reviewing x-rays and diagnostic studies, care of the patient and discussion of the patient with the admitting physicians. Sepsis Criteria SIRS Criteria (2 or more): Heart rate over 90, RR > 20 or PaCO2 < 32 Sepsis Criteria (SIRS+source): Infect source susp/known Severe Sepsis (+one): Lactate >2, Acute Oliguria/Renal Failure Septic Shock Criteria: Lactic acid >=4 Diagnosis Primary Impression: Sepsis Qualified Codes: A41.9 - Sepsis, unspecified organism Additional Impressions: Colitis Polysubstance abuse Acute renal failure Qualified Codes: N17.9 - Acute kidney failure, unspecified Admitting Information Admitting Physician Requests: Admit Scripts No Active Prescriptions or Reported Meds Geovanna Roberto MD Oct 14, 2017 19:49
[2017-10-14 20:01] LABS: AUTOMATED NEUTROPHIL # 8.9 TH/MM3 (1.8-7.7); BASOPHIL % 0.2 % (0.0-2.0); HEMATOCRIT 23.4 % (35.0-46.0); HEMOGLOBIN 7.6 GM/DL (11.6-15.3); LYMPHOCYTE # 0.7 TH/MM3 (1.0-4.8); MEAN CELL VOLUME 88.7 FL (80.0-100.0); MEAN CORPUSCULAR HEMOGLOBIN 28.8 PG (27.0-34.0); MEAN CORPUSCULAR HGB CONC 32.5 % (32.0-36.0); MEAN PLATELET VOLUME 9.6 FL (7.0-11.0); MONO % 8.2 % (0.0-8.0); MONOCYTE # 0.9 TH/MM3 (0-0.9); NEUT % 84.6 % (16.0-70.0); PLATELET COUNT 109 TH/MM3 (150-450); RED BLOOD COUNT 2.64 MIL/MM3 (4.00-5.30); RED CELL DISTRIBUTION WIDTH 19.7 % (11.6-17.2); WHITE BLOOD COUNT 10.5 TH/MM3 (4.0-11.0)
[2017-10-14 20:15] LABS: INTERNATIONAL NORMALIZED RATIO 2.4 RATIO; PROTHROMBIN TIME - PATIENT 24.2 SEC (9.8-11.6)
[2017-10-14 20:20] LABS: AMORPHOUS SEDIMENT, URINE FEW; BACTERIA, URINE RARE /hpf; BILIRUBIN, URINE NEG (NEG); BLOOD, URINE LARGE (NEG); GLUCOSE,URINE 50 mg/dL (NEG); KETONE, URINE TRACE mg/dL (NEG); NITRITE,URINE NEG (NEG); SQUAMOUS EPITHELIAL CELL URINE 1 /hpf (0-5); URINE COLOR Amber (YELLW/STRAW); URINE LEUKOCYTE ESTERASE NEG (NEG)
--- NOTE | 2017-10-14 20:26 | RADRPT ---
EXAM DATE: 10/14/2017 8:15 PM EDT AGE/SEX: 37 years / Female INDICATIONS: Abdominal pain. Diarrhea. CLINICAL DATA: This is the patient's initial encounter. Patient reports that signs and symptoms have been present for 1 day and indicates a pain score of 5/10. MEDICAL/SURGICAL HISTORY: Cardiovascular disease. Hepatitis C. Seizures. None. RADIATION DOSE: 6.75 CTDI (mGy) ; Combined studies COMPARISON: [facility] [place] ABDOMEN & PELVIS W/O CONTRAST, 09/30/2017. . TECHNIQUE: Multiple contiguous axial images were obtained through the abdomen. Images were obtained using multiple row detector helical technique. Using dose reduction techniques, radiation dose was ke pt as low as reasonably achievable to obtain optimal diagnostic quality images. FINDINGS: Comparison is September 30, 2017. Right effusion is slightly decreased in size and previous left effusion h as resolved. There is basilar airspace disease which is also improved. Mild mural thickening of the left colon Hepatosplenomegaly is relatively stable. Stable calcified right adrenal gland. Kidneys, left adrenal and pancreas are stable in appearance. There is relatively stable ascites. There is diffuse severe an asarca. No acute bony abnormalities. CONCLUSION: 1. There is mild mural thickening of the left colon most characteristic of a mild colitis. 2. Improvement in pleural effusions and basilar lung consolidation since September 30. 3. Persistent ascites and diffuse anasarca. Dan catheter present in bladder. Electronically signed by: Primo De La Cruz MD 10/14/2017 8:24 PM EDT
--- NOTE | 2017-10-14 20:31 | RADRPT ---
EXAM DATE: 10/14/2017 8:17 PM EDT AGE/SEX: 37 years / Female INDICATIONS: Short of breath. CLINICAL DATA: This is the patient's initial encounter. Patient reports that signs and symptoms have been present for 1 day and indicates a pain score of 5/10. MEDICAL/SURGICAL HISTORY: Cardiovascular disease. Hepatitis C. Seizures. None. RADIATION DOSE: 6.75 CTDI (mGy) ; Combined studies COMPARISON: [facility] [place]ORAX W/[place], 09/16/2017. . TECHNIQUE: Multiple contiguous axial images were obtained through the chest without contrast. Image s were obtained in suspended respiration using multiple row detector helical technique. Using automa lloyd exposure control and adjustment of the mA and/or kV according to patient size, radiation dose was kept as low as reasonably achievable to obtain optimal diagnostic quality images. FINDINGS: Comparison is abdomen CT from September 30 which includes axial sections through the lower chest. Previous right effusion has improved and left effusion has almost completely resolved. Evaluation of the upper lungs reveals persistent cavitary nodules. There is a 2.3 cm cavitary nodule anterior segment left upper lobe with air-fluid level. On the right side there is a new focus of cavi tation within a previous area of consolidation at the right lung apex, measuring about 1.3 cm in diam eter. Some areas of consolidation and improved slightly and some are new since the prior study from [facility] . There is no significant pericardial effusion. No definite adenopathy. There is anasarca. CONCLUSION: 1. Improved pleural effusions with decrease in size on the right and near complete resolution of the left effusion. 2. Overall basilar lung consolidation has improved. 3. There are several new areas of small cavitation in the upper lungs and a mixed pattern with some areas of consolidation improving and some of which are new. 4. No pericardial effusion. Electronically signed by: Primo De La Cruz MD 10/14/2017 8:30 PM EDT
[2017-10-14 20:33] LABS: LACTIC ACID SEPSIS PROTOCOL 9.2 mmol/L (0.4-2.0)
[2017-10-14] MEDS ORDERED: SODIUM CHLOR 0.9% 1000 ML INJ 800 ML IV ONE (20:33)
--- NOTE | 2017-10-14 20:40 | RADRPT ---
EXAM DATE: 10/14/2017 8:25 PM EDT AGE/SEX: 37 years / Female INDICATIONS: Lower chest pain and shortness of breath. CLINICAL DATA: This is the patient's initial encounter. Patient reports that signs and symptoms have been present for 1 day and indicates a pain score of Nonresponsive. MEDICAL/SURGICAL HISTORY: . Hepatitis C. HIV. Pancreatitis. Seizures. Pulmonary embolism. . Pa racentesis. COMPARISON: [facility], CHEST SINGLE AP, 10/03/2017. . FINDINGS: Heart size enlarged. Patchy bilateral airspace disease overall slightly improved compared with October 03 . Small effusions. No pneumothorax. CONCLUSION: Bilateral airspace disease improved from October 03. Small effusions. Electronically signed by: Primo De La Cruz MD 10/14/2017 8:39 PM EDT
[2017-10-14] MEDS ORDERED: metroNIDAZOLE 500 MG TAB PO ONE (20:45)
[2017-10-14] MEDS ORDERED: PIPERACIL-TAZO 3.375 GM PREMIX 50 ML IV ONE (20:45)
[2017-10-14] MEDS ORDERED: VANCOMYCIN INJ 1,000 MG in SODIUM CHLOR 0.9% 250 ML INJ 250 ML IV ONE (20:45)
[2017-10-14 21:18] LABS: ALBUMIN 4.5 GM/DL (3.4-5.0); ALKALINE PHOSPHATASE 906 U/L (45-117); ALT (GPT) 1214 U/L (10-53); AST (GOT) 4267 U/L (15-37); BICARBONATE 8.5 MEQ/L (21.0-32.0); BLOOD UREA NITROGEN 66 MG/DL (7-18); CALCIUM 8.8 MG/DL (8.5-10.1); CHLORIDE 105 MEQ/L (98-107); CREATININE 2.02 MG/DL (0.50-1.00); GLOMERULAR FILTRATION RATE 28 ML/MIN (>89); MAGNESIUM 2.1 MG/DL (1.5-2.5); SODIUM (NA) 135 MEQ/L (136-145); TOTAL BILIRUBIN ADULT 2.3 MG/DL (0.2-1.0); TOTAL PROTEIN 8.6 GM/DL (6.4-8.2)
[2017-10-14 21:19] LABS: GLUCOSE,RANDOM 35 MG/DL (74-106)
[2017-10-14] MEDS ORDERED: oxyCODONE/ACETAMINOPHEN 5 MG/325 MG TAB PO PRN (21:45)
[2017-10-14] MEDS ORDERED: SENNOSIDES 8.6 MG TAB PO PRN (21:45)
[2017-10-14] MEDS ORDERED: CHLORHEXIDINE GLUCONATE 2 % 1 PACK (2 CLOTHS) TOP PRN (21:45)
[2017-10-14] MEDS ORDERED: BISACODYL 10 MG SUPP RECTAL PRN (21:45)
[2017-10-14] MEDS ORDERED: SODIUM CHLORIDE 0.9% FLUSH 10 ML FLUSH IV FLUSH PRN (21:45)
[2017-10-14] MEDS ORDERED: NURSING INFORMATION XX SCH (21:45)
[2017-10-14] MEDS ORDERED: SODIUM BICARBONATE 8.4% INJ 50 MEQ/50 ML SYR IV PUSH ONE (21:45)
[2017-10-14] MEDS ORDERED: RESP: ALBUTEROL 2.5 MG/IPRATROPIUM 0.5 MG NEB (PRN) INH (21:45)
[2017-10-14] MEDS ORDERED: PANTOPRAZOLE SODIUM 40 MG VIAL IV PUSH SCH (22:00)
--- NOTE | 2017-10-14 22:04 | PD ---
HPI Chief Complaint: Abdominal Pain Time Seen by Provider: 19:28 Travel History International Travel<30 days: No Contact w/Intl Traveler<30days: No Traveled to known affect area: No History of Present Illness HPI Patient is a 37-year-old female presenting from home via EMS for evaluation of diarrhea, altered mental status. Mother states patient left AMA from the hospital 3 days ago. She just returned home this morning at 5 AM. Patient admits to using Marie. Patient was admitted with septic emboli and endocarditis. Patient is reporting abdominal pain, she states she does not want to . Patient does not rate her pain. She has no other complaints at this time. H&P is limited due to patient's mental status. PFSH Past Medical History Anxiety: Yes Depression: Yes Cardiovascular Problems: Yes (Endocarditis) Chest Pain: Yes Headaches: Yes Hepatitis: Yes (hep c+) Immune Disorder: Yes (HIV) Musculoskeletal: Yes Neurologic: Yes Psychiatric: Yes Immunizations Current: Yes Migraines: No Seizures: Yes Tetanus Vaccination: < 5 Years ?: Not LMP: "6 YRS AGO" Past Surgical History Hysterectomy: No Other Surgery: No Social History Alcohol Use: No Tobacco Use: Yes (1 ppd) Substance Use: Yes (MARIE) Allergies-Medications (Allergen,Severity, Reaction): Coded Allergies: No Known Allergies (Unverified Allergy, Unknown, 08/13/17) Reported Meds & Prescriptions Reported Meds & Active Scripts Active No Active Prescriptions or Reported Medications Review of Systems Except as stated in HPI: all other systems reviewed are Neg General / Constitutional: No: Fever Cardiovascular: No: Chest Pain or Discomfort Respiratory: No: Shortness of Breath Gastrointestinal: Positive: Diarrhea, Abdominal Pain Neurologic: Positive: Weakness Psychiatric: Positive: Substance Abuse Hematologic/Lymphatic: Positive: Easy Bruising Physical Exam Narrative GENERAL: Thin, chronically ill-appearing female. Presenting in no acute distress SKIN: Warm and dry. Jaundiced appearing HEAD: Atraumatic. Normocephalic. EYES: Pupils equal and round. Positive scleral icterus. No injection or drainage. ENT: No nasal bleeding or discharge. Mucous membranes pink and moist. NECK: Trachea midline. No JVD. CARDIOVASCULAR: Tachycardic RESPIRATORY: No accessory muscle use. Diminished throughout GASTROINTESTINAL: Abdomen distended, mildly tender, positive bowel sounds, no rebound, no guarding MUSCULOSKELETAL: Extremities without clubbing, cyanosis. No obvious deformities. 1+ pitting edema to bilateral lower extremities. Mottled appearance to dorsal aspect of feet NEUROLOGICAL: Drowsy but arousable, oriented 3. No obvious cranial nerve deficits. Motor grossly within normal limits. Five out of 5 muscle strength in the arms and legs. Normal speech. Data Data Last Documented VS Vital Signs Date Time Temp Pulse Resp B/P (MAP) Pulse Ox O2 Delivery O2 Flow Rate FiO2 10/14/17 21:28 97 18 127/66 (86) 97 Nasal Cannula 2.00 10/14/17 19:29 98.5 Orders Orders Sepsis Workup Initiated (10/14/17 ) Electrocardiogram (10/14/17 19:34) Complete Blood Count With Diff (10/14/17 19:34) Comprehensive Metabolic Panel (10/14/17 19:34) Prothrombin Time / Inr (Pt) (10/14/17 19:34) Act Partial Throm Time (Ptt) (10/14/17 19:34) Lactic Acid Sepsis Protocol (10/14/17 19:34) Magnesium (Mg) (10/14/17 19:34) Lipase (10/14/17 19:34) Urinalysis - C+S If Indicated (10/14/17 19:34) Blood Culture (10/14/17 19:34) Chest, Single Ap (10/14/17 19:34) Blood Glucose (10/14/17 19:34) Ecg Monitoring (10/14/17 19:34) Iv Access Insert/Monitor (10/14/17 19:34) Cath For Specimen (10/14/17 19:34) Oximetry (10/14/17 19:34) Oxygen Administration (10/14/17 19:34) Ct Abd/Pel W/O Iv Contrast (10/14/17 19:34) Sodium Chlor 0.9% 1000 Ml Inj (Ns 1000 M (10/14/17 19:34) Dextrose 50% In [place] (Syr) Inj (D50w (Syr (10/14/17 19:45) Ct Thorax/ Chest Wo Iv Contras (10/14/17 ) Urinary Catheter Insert/Apply (10/14/17 19:58) Urine Culture (10/14/17 19:47) Vancomycin Inj (Vancomycin Inj) (10/14/17 20:45) Piperacil-Tazo 3.375 Gm Premix (Zosyn 3. (10/14/17 20:45) Sodium Chlor 0.9% 1000 Ml Inj (Ns 1000 M (10/14/17 20:33) Sodium Chlor 0.9% 1000 Ml Inj (Ns 1000 M (10/14/17 20:33) Metronidazole (Flagyl) (10/14/17 20:45) B-Type Natriuretic Peptide (10/14/17 20:39) Sodium Bicarbonate 8.4% Inj (Sodium Bica (10/14/17 21:45) Admit Order (Ed Use Only) (10/14/17 21:49) Arterial Blood Gas (Abg) (10/14/17 ) Labs Laboratory Tests Test 10/14/17 19:46 10/14/17 19:47 10/14/17 21:45 White Blood Count 10.5 TH/MM3 Red Blood Count 2.64 MIL/MM3 Hemoglobin 7.6 GM/DL Hematocrit 23.4 % Mean Corpuscular Volume 88.7 FL Mean Corpuscular Hemoglobin 28.8 PG Mean Corpuscular Hemoglobin Concent 32.5 % Red Cell Distribution Width 19.7 % Platelet Count 109 TH/MM3 Mean Platelet Volume 9.6 FL Neutrophils (%) (Auto) 84.6 % Lymphocytes (%) (Auto) 7.0 % Monocytes (%) (Auto) 8.2 % Eosinophils (%) (Auto) 0.0 % Basophils (%) (Auto) 0.2 % Neutrophils # (Auto) 8.9 TH/MM3 Lymphocytes # (Auto) 0.7 TH/MM3 Monocytes # (Auto) 0.9 TH/MM3 Eosinophils # (Auto) 0.0 TH/MM3 Basophils # (Auto) 0.0 TH/MM3 CBC Comment DIFF FINAL Differential Comment Prothrombin Time 24.2 SEC Prothromb Time International Ratio 2.4 RATIO Activated Partial Thromboplast Time 39.7 SEC Blood Urea Nitrogen 66 MG/DL Creatinine 2.02 MG/DL Random Glucose 35 MG/DL Total Protein 8.6 GM/DL Albumin 4.5 GM/DL Calcium Level 8.8 MG/DL Magnesium Level 2.1 MG/DL Alkaline Phosphatase 906 U/L Aspartate Amino Transf (AST/SGOT) 4267 U/L Alanine Aminotransferase (ALT/SGPT) 1214 U/L Total Bilirubin 2.3 MG/DL Sodium Level 135 MEQ/L Potassium Level 5.6 MEQ/L Chloride Level 105 MEQ/L Carbon Dioxide Level 8.5 MEQ/L Anion Gap 22 MEQ/L Estimat Glomerular Filtration Rate 28 ML/MIN Lactic Acid Level 9.2 mmol/L 5.6 mmol/L B-Type Natriuretic Peptide 625 PG/ML Lipase 968 U/L Urine Color Komal Urine Turbidity CLOUDY Urine pH 5.0 Urine Specific [place] 1.024 Urine Protein >=500 mg/dL Urine Glucose (UA) 50 mg/dL Urine Ketones TRACE mg/dL Urine Occult Blood LARGE Urine Nitrite NEG Urine Bilirubin NEG Urine Urobilinogen LESS THAN 2 mg/dL Urine Leukocyte Esterase NEG Urine RBC 73 /hpf Urine WBC 35 /hpf Urine Squamous Epithelial Cells 1 /hpf Urine Amorphous Sediment FEW Urine Bacteria RARE /hpf Microscopic Urinalysis Comment CATH-CULTURE IND Blood Gas Puncture Site RT RADIAL Blood Gas Patient Temperature 98.6 Blood Gas HCO3 11 mmol/L Blood Gas Base Excess -14.1 mmol/L Blood Gas Oxygen Saturation 88 % Arterial Blood pH 7.31 Arterial Blood Partial Pressure CO2 23 mmHg Arterial Blood Partial Pressure O2 74 mmHg Arterial Blood Oxygen Content 9.0 Vol % Arterial Blood Carboxyhemoglobin 1.6 % Arterial Blood Methemoglobin 1.6 % Blood Gas Hemoglobin 7.2 G/DL Oxygen Delivery Device NASAL CANNULA Blood Gas Liter Flow 2 L/M MDM Medical Decision Making Medical Screen Exam Complete: Yes Emergency Medical Condition: Yes Medical Record Reviewed: Yes Interpretation(s) Last Impressions Chest X-Ray 10/14/171933 Signed Impressions: CONCLUSION: Bilateral airspace disease improved from October 03. Small effusions. Abdomen/Pelvis CT 10/14/171933 Signed Impressions: CONCLUSION: 1. There is mild mural thickening of the left colon most characteristic of a m ild colitis. 2. Improvement in pleural effusions and basilar lung consolidation since September 30. 3. Persistent ascites and diffuse anasarca. Dan catheter present in bladder. Chest CT 10/14/17 0000 Signed Impressions: CONCLUSION: 1. Improved pleural effusions with decrease in size on the right and near comp lete resolution of the left effusion. 2. Overall basilar lung consolidation has improved. 3. There are several new areas of small cavitation in the upper lungs and a mi xed pattern with some areas of consolidation improving and some of which are ne w. 4. No pericardial effusion. Laboratory Tests Test 10/14/17 19:46 10/14/17 19:47 10/14/17 21:45 White Blood Count 10.5 TH/MM3 Red Blood Count 2.64 MIL/MM3 Hemoglobin 7.6 GM/DL Hematocrit 23.4 % Mean Corpuscular Volume 88.7 FL Mean Corpuscular Hemoglobin 28.8 PG Mean Corpuscular Hemoglobin Concent 32.5 % Red Cell Distribution Width 19.7 % Platelet Count 109 TH/MM3 Mean Platelet Volume 9.6 FL Neutrophils (%) (Auto) 84.6 % Lymphocytes (%) (Auto) 7.0 % Monocytes (%) (Auto) 8.2 % Eosinophils (%) (Auto) 0.0 % Basophils (%) (Auto) 0.2 % Neutrophils # (Auto) 8.9 TH/MM3 Lymphocytes # (Auto) 0.7 TH/MM3 Monocytes # (Auto) 0.9 TH/MM3 Eosinophils # (Auto) 0.0 TH/MM3 Basophils # (Auto) 0.0 TH/MM3 CBC Comment DIFF FINAL Differential Comment Prothrombin Time 24.2 SEC Prothromb Time International Ratio 2.4 RATIO Activated Partial Thromboplast Time 39.7 SEC Blood Urea Nitrogen 66 MG/DL Creatinine 2.02 MG/DL Random Glucose 35 MG/DL Total Protein 8.6 GM/DL Albumin 4.5 GM/DL Calcium Level 8.8 MG/DL Magnesium Level 2.1 MG/DL Alkaline Phosphatase 906 U/L Aspartate Amino Transf (AST/SGOT) 4267 U/L Alanine Aminotransferase (ALT/SGPT) 1214 U/L Total Bilirubin 2.3 MG/DL Sodium Level 135 MEQ/L Potassium Level 5.6 MEQ/L Chloride Level 105 MEQ/L Carbon Dioxide Level 8.5 MEQ/L Anion Gap 22 MEQ/L Estimat Glomerular Filtration Rate 28 ML/MIN Lactic Acid Level 9.2 mmol/L Lipase 968 U/L Urine Color Komal Urine Turbidity CLOUDY Urine pH 5.0 Urine Specific [place] 1.024 Urine Protein >=500 mg/dL Urine Glucose (UA) 50 mg/dL Urine Ketones TRACE mg/dL Urine Occult Blood LARGE Urine Nitrite NEG Urine Bilirubin NEG Urine Urobilinogen LESS THAN 2 mg/dL Urine Leukocyte Esterase NEG Urine RBC 73 /hpf Urine WBC 35 /hpf Urine Squamous Epithelial Cells 1 /hpf Urine Amorphous Sediment FEW Urine Bacteria RARE /hpf Microscopic Urinalysis Comment CATH-CULTURE IND Vital Signs Date Time Temp Pulse Resp B/P (MAP) Pulse Ox O2 Delivery O2 Flow Rate FiO2 10/14/17 21:28 97 18 127/66 (86) 97 Nasal Cannula 2.00 10/14/17 20:24 94 Nasal Cannula 2.00 10/14/17 20:23 88 Room Air 10/14/17 19:51 98 17 111/58 (75) 99 Room Air 10/14/17 19:50 99 Room Air 10/14/17 19:29 98.5 109 19 Differential Diagnosis Metabolic abnormality versus septic emboli versus endocarditis versus UTI versus IV drug use versus other Narrative Course Patient is a 37-year-old female presented to the emergency department after leaving AMA 3 days prior. Patient has a history of IV drug use, she appears acutely ill. Her vital signs are stable, she is altered. Labs and imaging ordered and pending. Patient placed on telemetry monitoring continuous pulse oximetry. IV access established at 2 sites. Urinary catheter placed for accurate I&O. CBC with a new anemia with a hemoglobin of 7.6, this is trended down significantly from prior results on October 10 when her hemoglobin was 11.1. Chemistry with a potassium of 5.6, BUN and creatinine 66/2.02, AST and ALT are significantly elevated when compared to prior. AST is 4267, ALT is 1214. Lipase is 968. Glucose reported at 35 however this was dressed previously when patient's blood glucose on arrival was 44, she was given an amp of D50. Her blood glucose is now 97. Urinalysis consistent with a urinary tract infection. Patient shows a moderate coagulopathy with a PT of 24.2 and a PTT of 39.7. Lactic acid 9.2. Patient was cautiously given IV fluids in the setting of congestive heart failure previously. CT of the chest shows an improvement in pleural effusions with decrease in size on the right and near complete resolution on the left. There are several new areas of small cavitation in the upper lungs and a mixed pattern with some areas of consolidation improving and some of which are new. No pericardial effusion noted. CT scan of the abdomen and pelvis shows mild mural thickening of the left colon was characteristic of a mild colitis. Persistent ascites and diffuse anasarca. Findings were discussed with Dr. Solorio, compound finisher. He recommended patient received 2 A of bicarb followed by an ABG. These orders were placed. Patient will be placed in the medical ICU. Admit orders placed. Patient's vital signs remained stable. Her mother is at bedside, plan of care discussed with mother. Findings and plan of care were also discussed with my attending physician. Patient will be admitted with septic emboli, colitis, endocarditis, liver failure, renal failure. Sepsis Criteria SIRS Criteria (2 or more): Heart rate over 90 Sepsis Criteria (SIRS+source): Infect source susp/known Severe Sepsis (+one): Organ Dysfunction, Lactate >2, Acute Oliguria/Renal Failure Diagnosis Primary Impression: Acute renal failure Qualified Codes: N17.9 - Acute kidney failure, unspecified Additional Impressions: Polysubstance abuse Urinary tract infection Qualified Codes: N39.0 - Urinary tract infection, site not specified; R31.9 - Hematuria, unspecified Altered mental status Qualified Codes: R41.0 - Disorientation, unspecified Acute liver failure Qualified Codes: K72.00 - Acute and subacute hepatic failure without coma Metabolic acidosis Admitting Information Admitting Physician Requests: Admit Scripts No Active Prescriptions or Reported Meds Condition: Stable Mitali Zayas Oct 14, 2017 22:04
[2017-10-14] MEDS ORDERED: ONDANSETRON ODT 4 MG TAB PO PRN (22:15)
--- NOTE | 2017-10-14 22:34 | HHI.HP ---
HPI Service Critical Care Medicine Primary Care Physician No Primary Care Physician Admission Diagnosis SEPSIS, SEPTIC EMBOLI, ENDOCARDITIS Diagnosis: Travel History International Travel<30 Days: No Contact w/Intl Traveler <30 Da: No Traveled to Known Affected Are: No History of Present Illness HPI Patient is a 37-year-old female presenting from home via EMS for evaluation of diarrhea, altered mental status. Mother states patient left AMA from the hospital 3 days ago. She just returned home this morning at 5 AM. Patient admits to using Marie. 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 She has signed out multiple times AMA while on antibiotics. Previous admission have shown pancytopenia DIC, pulmonary septic emboli. During the last admission patient was also noted to be in septic shock and was on pressors transiently. At that time she also had thoracentesis for bilateral effusions as well as a paracentesis for ascites. Patient had a CT surgery evaluation however was not deemed to be a candidate for surgery due to her ongoing IV drug use. Patient reportedly signed out AGAINST MEDICAL ADVICE on and showed up at home on 10/14 around 5 AM according to documentation in the ER. She reportedly admitted to using IV drugs including Marie. On evaluation in the ER patient was noted to be dehydrated with significant lactic acidosis as well as worsening renal function. She first felt to be septic and underwent CT chest abdomen pelvis which revealed evidence of colitis, ascites. She did complain of significant abdominal pain and diarrhea. Patient was cultured and was initiated on empiric antibiotics including IV Vanco/p.o. Flagyl. When I evaluated the patient in the ER she was lethargic though easily arousable. She knew she was in the hospital she was also complaining of abdominal pain however was requesting something to drink. History was obtained by reviewing records and discussion with ER CONCRETE PANEL INSTALLER/ nursing staff. Patient was too lethargic to give details of her history. During previous hospitalization patient was evaluated by Dr. Harp from [place] and was on IV Ancef prior to leaving the hospital AGAINST MEDICAL ADVICE. She had also been evaluated by CT surgery, hematology. Review of Systems ROS Limitations: Altered Mental Status, Poor Historian Past Family Social History Allergies: Coded Allergies: No Known Allergies (Unverified Allergy, Unknown, 08/13/17) Past Medical History Hepatitis C Tricuspid valve endocarditis Group A strep sepsis MSSA sepsis Known active IV drug use Past Surgical History None reported Physical Exam Vital Signs Vital Signs Date Time Temp Pulse Resp B/P (MAP) Pulse Ox O2 Delivery O2 Flow Rate FiO2 10/14/17 21:28 97 18 127/66 (86) 97 Nasal Cannula 2.00 10/14/17 20:24 94 Nasal Cannula 2.00 10/14/17 20:23 88 Room Air 10/14/17 19:51 98 17 111/58 (75) 99 Room Air 10/14/17 19:50 99 Room Air 10/14/17 19:29 98.5 109 19 Physical Exam GENERAL: Thin, chronically ill-appearing female. Presenting in no acute distress SKIN: Warm and dry. Jaundiced appearing HEAD: Atraumatic. Normocephalic. EYES: Pupils equal and round. Positive scleral icterus. No injection or drainage. ENT: No nasal bleeding or discharge. Mucous membranes pink and moist. NECK: Trachea midline. No JVD. CARDIOVASCULAR: S1S2 regular RESPIRATORY: No accessory muscle use. Diminished throughout GASTROINTESTINAL: Abdomen distended, mildly tender, positive bowel sounds, no rebound, no guarding MUSCULOSKELETAL: Extremities without clubbing, cyanosis. No obvious deformities. 1+ pitting edema to bilateral lower extremities. petechiae on bilateral shins. NEUROLOGICAL: Drowsy but arousable, oriented 3. No obvious cranial nerve deficits. Motor grossly within normal limits. Five out of 5 muscle strength in the arms and legs. Normal speech. Laboratory Laboratory Tests Test 10/14/17 19:46 10/14/17 19:47 10/14/17 21:45 White Blood Count 10.5 Red Blood Count 2.64 Hemoglobin 7.6 Hematocrit 23.4 Mean Corpuscular Volume 88.7 Mean Corpuscular Hemoglobin 28.8 Mean Corpuscular Hemoglobin Concent 32.5 Red Cell Distribution Width 19.7 Platelet Count 109 Mean Platelet Volume 9.6 Neutrophils (%) (Auto) 84.6 Lymphocytes (%) (Auto) 7.0 Monocytes (%) (Auto) 8.2 Eosinophils (%) (Auto) 0.0 Basophils (%) (Auto) 0.2 Neutrophils # (Auto) 8.9 Lymphocytes # (Auto) 0.7 Monocytes # (Auto) 0.9 Eosinophils # (Auto) 0.0 Basophils # (Auto) 0.0 CBC Comment DIFF FINAL Differential Comment Prothrombin Time 24.2 Prothromb Time International Ratio 2.4 Activated Partial Thromboplast Time 39.7 Blood Urea Nitrogen 66 Creatinine 2.02 Random Glucose 35 Total Protein 8.6 Albumin 4.5 Calcium Level 8.8 Magnesium Level 2.1 Alkaline Phosphatase 906 Aspartate Amino Transf (AST/SGOT) 4267 Alanine Aminotransferase (ALT/SGPT) 1214 Total Bilirubin 2.3 Sodium Level 135 Potassium Level 5.6 Chloride Level 105 Carbon Dioxide Level 8.5 Anion Gap 22 Estimat Glomerular Filtration Rate 28 Lactic Acid Level 9.2 B-Type Natriuretic Peptide 625 Lipase 968 Urine Color Komal Urine Turbidity CLOUDY Urine pH 5.0 Urine Specific [place] 1.024 Urine Protein >=500 Urine Glucose (UA) 50 Urine Ketones TRACE Urine Occult Blood LARGE Urine Nitrite NEG Urine Bilirubin NEG Urine Urobilinogen LESS THAN 2 Urine Leukocyte Esterase NEG Urine RBC 73 Urine WBC 35 Urine Squamous Epithelial Cells 1 Urine Amorphous Sediment FEW Urine Bacteria RARE Microscopic Urinalysis Comment CATH-CULTURE IND Date/Time Source Procedure Growth Status 10/14/17 19:47 Blood Peripheral Aerobic Blood Culture Pending Received 10/14/17 19:47 Blood Peripheral Anaerobic Blood Culture Pending Received 10/14/17 19:47 Urine Catheterized Urine Urine Culture Pending Received Result Diagram: 10/14/17194510/14/171945 Imaging Last Impressions Chest X-Ray 10/14/171933 Signed Impressions: CONCLUSION: Bilateral airspace disease improved from October 03. Small effusions. Abdomen/Pelvis CT 10/14/171933 Signed Impressions: CONCLUSION: 1. There is mild mural thickening of the left colon most characteristic of a m ild colitis. 2. Improvement in pleural effusions and basilar lung consolidation since September 30. 3. Persistent ascites and diffuse anasarca. Dan catheter present in bladder. Chest CT 10/14/17 0000 Signed Impressions: CONCLUSION: 1. Improved pleural effusions with decrease in size on the right and near comp lete resolution of the left effusion. 2. Overall basilar lung consolidation has improved. 3. There are several new areas of small cavitation in the upper lungs and a mi xed pattern with some areas of consolidation improving and some of which are ne w. 4. No pericardial effusion. Septic Shock Reassessment Septic shock perfusion: reassessment completed Caprini VTE Risk Assessment Caprini VTE Risk Assessment: Mod/High Risk (score >= 2) Caprini Risk Assessment Model Point Value = 1 Point Value = 2 Point Value = 3 Point Value = 5 Age 41-60 Minor surgery BMI > 25 kg/m2 Swollen legs Varicose veins or History of unexplained or recurrent spontaneous Oral contraceptives or hormone replacement Sepsis (< 1 month) Serious lung disease, including pneumonia (< 1 month) Abnormal pulmonary function Acute myocardial infarction Congestive heart failure (< 1 month) History of inflammatory bowel disease Medical patient at bed rest Age 61-74 Arthroscopic surgery Major open surgery (> 45 min) Laparoscopic surgery (> 45 min) Malignancy Confined to bed (> 72 hours) Immobilizing plaster cast Central venous access Age >= 75 History of VTE Family history of VTE Factor V Leiden Prothrombin [id number] Lupus anticoagulant Anticardiolipin antibodies Elevated serum homocysteine Heparin-induced thrombocytopenia Other congenital or acquired thrombophilia Stroke (< 1 month) Elective arthroplasty Hip, pelvis, or leg fracture Acute spinal cord injury (< 1 month) Prophylaxis Regimen Total Risk Factor Score Risk Level Prophylaxis Regimen 0-1 Low Early ambulation 2 Moderate Order ONE of the following: *Sequential Compression Device (SCD) *Heparin 5000 units SQ BID 3-4 Higher Order ONE of the following medications: *Heparin 5000 units SQ TID *Enoxaparin/Lovenox 40 mg SQ daily (WT < 150 kg, CrCl > 30 mL/min) *Enoxaparin/Lovenox 30 mg SQ daily (WT < 150 kg, CrCl > 10-29 mL/min) *Enoxaparin/Lovenox 30 mg SQ BID (WT < 150 kg, CrCl > 30 mL/min) AND/OR *Sequential Compression Device (SCD) 5 or more Highest Order ONE of the following medications: *Heparin 5000 units SQ TID (Preferred with Epidurals) *Enoxaparin/Lovenox 40 mg SQ daily (WT < 150 kg, CrCl > 30 mL/min) *Enoxaparin/Lovenox 30 mg SQ daily (WT < 150 kg, CrCl > 10-29 mL/min) *Enoxaparin/Lovenox 30 mg SQ BID (WT < 150 kg, CrCl > 30 mL/min) AND *Sequential Compression Device (SCD) Assessment and Plan Assessment and Plan 37-year-old female with: Severe sepsis Bacterial endocarditis involving tricuspid valve/aortic valve Septic emboli Possible pneumonia ESTEFANIA Lactic acidosis Hyperkalemia Elevated LFTs Dehydration Diarrhea Colitis Suspected DIC UTI Medical noncompliance IV drug use Plan: Neuro: Follow neuro status. Morphine as needed for uncontrolled pain. Cardiovascular: IV hydration. Ordered bicarb drip. Has known endocarditis involving tricuspid valve and aortic valve however has not been medically compliant with antibiotis and signed out AGAINST MEDICAL ADVICE on 10/10/2017. Pulmonary: Supplemental O2, bronchodilators as needed. GI/liver: Clear liquid diet. Colitis noted on CT. Possible ischemia versus C. difficile. Stool for C. difficile pending. Renal/: IV hydration, strict intake output, monitor and replete electrolytes, follow BUN/creatinine. Starting bicarb drip-D5W with 150mEq NaHCO3 @ 200cc/hr. Kayexalate ordered for hyperkalemia. Patient did receive 1 amp of bicarb in the ER. Follow-up ABG. Follow lactic acid. Heme: Suspected DIC. Follow coags. Type and screen. Transfuse to keep hemoglobin greater than 7 g percent. ID: Follow-up cultures. Empiric antibiotic coverage with IV Zosyn. ID consult requested. Check stool for C. difficile. Patient did receive dose of vancomycin and oral Flagyl in the ER. Endocrine: Received dextrose for hypoglycemia. Check fingerstick glucose every 6 hourly. Prophylaxis: PPI/SCDs. Hold heparin/Lovenox in view of suspected DIC and thrombocytopenia. Condition critical Time spent on critical care excluding procedures 45 minutes Robert Solorio MD Oct 14, 2017 22:34
[2017-10-14] MEDS ORDERED: PHYTONADIONE INJ 10 MG in DEXTROSE 5% IN WATER INJ 50 ML IV ONE ×2 (22:45)
[2017-10-14] MEDS: SODIUM BICARBONATE 8.4% INJ 150 MEQ in DEXTROSE 5% IN WATE 1000ML INJ 1,000 ML IV SCH ×2 (23:06)
[2017-10-14] MEDS: SODIUM POLYSTYRENE SULFONATE SUSP 15 GM/60 ML CUP PO SCH ×2 (23:08→23:54)
[2017-10-14] MEDS ORDERED: SODIUM BICARBONATE 8.4% SOLN 50 MEQ/50 ML VIAL IV ONE (23:45)
[2017-10-15] VITALS (38 sets, daily range): BP systolic 93–179; BP diastolic 51–81; PULSE 92–122; RESP 14–49; TEMP 97.5–98.4; O2SAT 82–99
[2017-10-15] MEDS: SODIUM POLYSTYRENE SULFONATE SUSP 15 GM/60 ML CUP PO SCH ×2 (02:00→04:00)
[2017-10-15] MEDS: MORPHINE SULFATE 4 MG/ML INJ IV PUSH PRN ×4 (03:50→18:15)
[2017-10-15] MEDS ORDERED: PIPERACIL-TAZO 3.375 GM PREMIX 50 ML IV SCH (04:00)
[2017-10-15] MEDS ORDERED: CHLORHEXIDINE GLUCONATE 2 % 1 PACK (2 CLOTHS) TOP SCH (04:00)
[2017-10-15] MEDS: PIPERACIL-TAZO 2.25 GM PREMIX 50 ML IV SCH ×3 (04:01→15:00)
[2017-10-15] MEDS: SODIUM BICARBONATE 8.4% INJ 150 MEQ in DEXTROSE 5% IN WATE 1000ML INJ 1,000 ML IV SCH ×4 (04:02→12:13)
[2017-10-15 06:57] LABS: INTERNATIONAL NORMALIZED RATIO 3.3 RATIO; PROTHROMBIN TIME - PATIENT 33.5 SEC (9.8-11.6)
[2017-10-15 07:21] LABS: BASOPHIL % 0.2 % (0.0-2.0); EOSINOPHIL % 0.1 % (0.0-4.0); HEMATOCRIT 22.4 % (35.0-46.0); HEMOGLOBIN 7.4 GM/DL (11.6-15.3); LYMPH % 6.7 % (9.0-44.0); LYMPHOCYTE # 0.9 TH/MM3 (1.0-4.8); MEAN CELL VOLUME 87.3 FL (80.0-100.0); MEAN CORPUSCULAR HEMOGLOBIN 28.8 PG (27.0-34.0); MEAN CORPUSCULAR HGB CONC 32.9 % (32.0-36.0); MEAN PLATELET VOLUME 9.6 FL (7.0-11.0); MONO % 6.8 % (0.0-8.0); MONOCYTE # 0.9 TH/MM3 (0-0.9); NEUT % 86.2 % (16.0-70.0); PLATELET COUNT 94 TH/MM3 (150-450); RED BLOOD COUNT 2.56 MIL/MM3 (4.00-5.30); RED CELL DISTRIBUTION WIDTH 20.5 % (11.6-17.2); WHITE BLOOD COUNT 12.8 TH/MM3 (4.0-11.0)
[2017-10-15 07:36] LABS: ALBUMIN 3.9 GM/DL (3.4-5.0); ALKALINE PHOSPHATASE 733 U/L (45-117); ALT (GPT) 2757 U/L (10-53); AST (GOT) 11331 U/L (15-37); BLOOD UREA NITROGEN 69 MG/DL (7-18); CALCIUM 7.5 MG/DL (8.5-10.1); CHLORIDE 105 MEQ/L (98-107); CREATININE 2.33 MG/DL (0.50-1.00); GLOMERULAR FILTRATION RATE 24 ML/MIN (>89); GLUCOSE,RANDOM 81 MG/DL (74-106); MAGNESIUM 1.9 MG/DL (1.5-2.5); PHOSPHORUS 6.8 MG/DL (2.5-4.9); SODIUM (NA) 139 MEQ/L (136-145); TOTAL BILIRUBIN ADULT 2.3 MG/DL (0.2-1.0); TOTAL PROTEIN 7.6 GM/DL (6.4-8.2)
[2017-10-15 08:20] LABS: OVALOCYTES 1+ (NORMAL)
[2017-10-15] MEDS ORDERED: DEXMEDETOMIDINE INJ 200 MCG in SODIUM CHLORIDE 0.9% INJ 50 ML IV PRN (08:30)
[2017-10-15] MEDS ORDERED: Vancomycin Consult Pharmacy 1 EA OTHER SCH (08:30)
[2017-10-15] MEDS ORDERED: PHYTONADIONE 10 MG/ML VIAL SQ ONE (08:30)
[2017-10-15] MEDS ORDERED: SODIUM CHLOR 0.9% 1000 ML INJ 1,000 ML IV ONE (08:30)
--- NOTE | 2017-10-15 08:42 | PD.CONS ---
HPI History of Present Illness This is a 37 year old F with PMH significant for hepatitis C with known history of IV drug use with last admitted dose 2 days ago and endocarditis. Pt recently left AMA from the hospital on 10/10, she was admitted for pancytopenia DIC and pulmonary septic shock emboli. Pt returned yesterday morning via EMS for evaluation of diarrhea and AMS. Our service has been consulted to evaluate pt for complaints of abdominal pain, elevated LFTs, and CT revealing colitis. She is screaming during my exam that she needs more pain medication and is not compliant in answering questions, therefore most of the history was obtained through chart review. Pt complaining of generalized abdominal pain, states has been going on for a long time. Pt reports previous EGD but is unsure of when, where or the results. Does not think she has ever had a colonoscopy. Does not answer questions regarding her bowel movements. Pt with known Hepatitis C, treatment naive. Admits to IV drug use, last use 2 days ago. Pt had 2 paracentesis done during previous admission, one on 09/25 with 1400 cc of fluid removed and one on 10/01 with 2000 cc of fluid removed. LFTs are markedly elevated, compared to previous admission in which they were normal. (Feli Briseno) PFSH Past Medical History Endocarditis Pulmonary septic emboli Hepatitis C IV drug use Past Surgical History None reported (Feli Briseno) Coded Allergies: No Known Allergies (Unverified Allergy, Unknown, 08/13/17) Social History Admits to IV drug use (Feli Briseno) Review of Systems Gastrointestinal: COMPLAINS OF: Abdominal pain (Feli Briseno) GI Exam Vitals I&O Vital Signs Date Time Temp Pulse Resp B/P (MAP) Pulse Ox O2 Delivery O2 Flow Rate FiO2 10/15/17 07:00 97.5 110 25 119/69 (86) 92 10/15/17 06:00 121 28 111/54 (73) 93 10/15/17 06:00 110 10/15/17 05:00 106 22 126/63 (84) 91 10/15/17 04:00 97.5 105 25 139/67 (91) 92 10/15/17 04:00 105 10/15/17 03:00 112 49 179/81 (113) 96 10/15/17 02:00 93 19 121/65 (83) 96 10/15/17 02:00 93 10/15/17 01:00 93 17 118/68 (85) 94 10/15/17 00:45 94 14 114/66 (82) 96 10/15/17 00:30 95 18 117/67 (84) 94 10/15/17 00:15 92 18 117/68 (84) 94 10/15/17 00:00 92 10/15/17 00:00 96 30 108/60 (76) 91 10/15/17 00:00 98.4 96 30 108/60 (76) 91 10/14/17 23:00 106 10/14/17 23:00 106 10/14/17 23:00 93 Nasal Cannula 2.00 10/14/17 23:00 98.2 106 34 143/65 (91) 93 10/14/17 22:55 95 Nasal Cannula 2.00 10/14/17 22:30 10/14/17 22:18 102 19 122/64 (83) 98 Nasal Cannula 2.00 10/14/17 21:28 97 18 127/66 (86) 97 Nasal Cannula 2.00 10/14/17 20:24 94 Nasal Cannula 2.00 10/14/17 20:23 88 Room Air 10/14/17 19:51 98 17 111/58 (75) 99 Room Air 10/14/17 19:50 99 Room Air 10/14/17 19:29 98.5 109 19 I/O 10/14/17 10/14/17 10/14/17 10/15/17 10/15/17 10/15/17 07:00 15:00 23:00 07:00 15:00 23:00 Intake Total 2350 ml 1724 ml Output Total 400 ml Balance 2350 ml 1324 ml Intake Oral 150 ml IV Total 2350 ml 1574 ml Output Urine Total 200 ml Emesis 200 ml # Bowel Movements 1 Imaging Last Impressions Chest X-Ray 10/14/171933 Signed Impressions: CONCLUSION: Bilateral airspace disease improved from October 03. Small effusions. Abdomen/Pelvis CT 10/14/171933 Signed Impressions: CONCLUSION: 1. There is mild mural thickening of the left colon most characteristic of a m ild colitis. 2. Improvement in pleural effusions and basilar lung consolidation since September 30. 3. Persistent ascites and diffuse anasarca. Dan catheter present in bladder. Chest CT 10/14/17 0000 Signed Impressions: CONCLUSION: 1. Improved pleural effusions with decrease in size on the right and near comp lete resolution of the left effusion. 2. Overall basilar lung consolidation has improved. 3. There are several new areas of small cavitation in the upper lungs and a mi xed pattern with some areas of consolidation improving and some of which are ne w. 4. No pericardial effusion. Laboratory Test 10/14/17 19:46 10/14/17 19:47 10/14/17 21:45 10/14/17 22:50 White Blood Count 10.5 TH/MM3 Red Blood Count 2.64 MIL/MM3 Hemoglobin 7.6 GM/DL Hematocrit 23.4 % Mean Corpuscular Volume 88.7 FL Mean Corpuscular Hemoglobin 28.8 PG Mean Corpuscular Hemoglobin Concent 32.5 % Red Cell Distribution Width 19.7 % Platelet Count 109 TH/MM3 Mean Platelet Volume 9.6 FL Neutrophils (%) (Auto) 84.6 % Lymphocytes (%) (Auto) 7.0 % Monocytes (%) (Auto) 8.2 % Eosinophils (%) (Auto) 0.0 % Basophils (%) (Auto) 0.2 % Neutrophils # (Auto) 8.9 TH/MM3 Lymphocytes # (Auto) 0.7 TH/MM3 Monocytes # (Auto) 0.9 TH/MM3 Eosinophils # (Auto) 0.0 TH/MM3 Basophils # (Auto) 0.0 TH/MM3 CBC Comment DIFF FINAL Differential Comment Prothrombin Time 24.2 SEC Prothromb Time International Ratio 2.4 RATIO Activated Partial Thromboplast Time 39.7 SEC Blood Urea Nitrogen 66 MG/DL Creatinine 2.02 MG/DL Random Glucose 35 MG/DL Total Protein 8.6 GM/DL Albumin 4.5 GM/DL Calcium Level 8.8 MG/DL Magnesium Level 2.1 MG/DL Alkaline Phosphatase 906 U/L Aspartate Amino Transf (AST/SGOT) 4267 U/L Alanine Aminotransferase (ALT/SGPT) 1214 U/L Total Bilirubin 2.3 MG/DL Sodium Level 135 MEQ/L Potassium Level 5.6 MEQ/L Chloride Level 105 MEQ/L Carbon Dioxide Level 8.5 MEQ/L Anion Gap 22 MEQ/L Estimat Glomerular Filtration Rate 28 ML/MIN Lactic Acid Level 9.2 mmol/L 5.6 mmol/L B-Type Natriuretic Peptide 625 PG/ML Lipase 968 U/L Urine Color Komal Urine Turbidity CLOUDY Urine pH 5.0 Urine Specific [place] 1.024 Urine Protein >=500 mg/dL Urine Glucose (UA) 50 mg/dL Urine Ketones TRACE mg/dL Urine Occult Blood LARGE Urine Nitrite NEG Urine Bilirubin NEG Urine Urobilinogen LESS THAN 2 mg/dL Urine Leukocyte Esterase NEG Urine RBC 73 /hpf Urine WBC 35 /hpf Urine Squamous Epithelial Cells 1 /hpf Urine Amorphous Sediment FEW Urine Bacteria RARE /hpf Microscopic Urinalysis Comment CATH-CULTURE IND Blood Gas Puncture Site RT RADIAL Blood Gas Patient Temperature 98.6 Blood Gas HCO3 11 mmol/L Blood Gas Base Excess -14.1 mmol/L Blood Gas Oxygen Saturation 88 % Arterial Blood pH 7.31 Arterial Blood Partial Pressure CO2 23 mmHg Arterial Blood Partial Pressure O2 74 mmHg Arterial Blood Oxygen Content 9.0 Vol % Arterial Blood Carboxyhemoglobin 1.6 % Arterial Blood Methemoglobin 1.6 % Blood Gas Hemoglobin 7.2 G/DL Oxygen Delivery Device NASAL CANNULA Blood Gas Liter Flow 2 L/M Nasal Screen MRSA (PCR) MRSA NOT DETECTED Test 10/15/17 06:10 White Blood Count 12.8 TH/MM3 Red Blood Count 2.56 MIL/MM3 Hemoglobin 7.4 GM/DL Hematocrit 22.4 % Mean Corpuscular Volume 87.3 FL Mean Corpuscular Hemoglobin 28.8 PG Mean Corpuscular Hemoglobin Concent 32.9 % Red Cell Distribution Width 20.5 % Platelet Count 94 TH/MM3 Mean Platelet Volume 9.6 FL Neutrophils (%) (Auto) 86.2 % Lymphocytes (%) (Auto) 6.7 % Monocytes (%) (Auto) 6.8 % Eosinophils (%) (Auto) 0.1 % Basophils (%) (Auto) 0.2 % Neutrophils # (Auto) 11.0 TH/MM3 Lymphocytes # (Auto) 0.9 TH/MM3 Monocytes # (Auto) 0.9 TH/MM3 Eosinophils # (Auto) 0.0 TH/MM3 Basophils # (Auto) 0.0 TH/MM3 CBC Comment AUTO DIFF Prothrombin Time 33.5 SEC Prothromb Time International Ratio 3.3 RATIO Blood Urea Nitrogen 69 MG/DL Creatinine 2.33 MG/DL Random Glucose 81 MG/DL Total Protein 7.6 GM/DL Albumin 3.9 GM/DL Calcium Level 7.5 MG/DL Phosphorus Level 6.8 MG/DL Magnesium Level 1.9 MG/DL Alkaline Phosphatase 733 U/L Aspartate Amino Transf (AST/SGOT) 44443 U/L Alanine Aminotransferase (ALT/SGPT) 2757 U/L Total Bilirubin 2.3 MG/DL Sodium Level 139 MEQ/L Potassium Level 5.1 MEQ/L Chloride Level 105 MEQ/L Carbon Dioxide Level 12.0 MEQ/L Anion Gap 22 MEQ/L Estimat Glomerular Filtration Rate 24 ML/MIN Lactic Acid Level 10.2 mmol/L Date/Time Source Procedure Growth Status 10/14/17 19:47 Blood Peripheral Aerobic Blood Culture Pending Received 10/14/17 19:47 Blood Peripheral Anaerobic Blood Culture Pending Received 10/14/17 19:47 Urine Catheterized Urine Urine Culture Pending Received Physical Examination HEENT: Normocephalic; atraumatic CHEST: Shallow respirations, tachypneic CARDIAC: Sinus tachycardia on monitor ABDOMEN: Distended, firm, diffusely tender, bowel sounds active EXTREMITIES: No clubbing, cyanosis, or edema. MEDICINE ASSISTANT: Alert, anxious (Feli Briseno) Assessment and Plan Plan Assessment: - Elevated LFTs AST- 71298 ALT-2757 T bili-2.3 Alk phos-733 with coagulopathy (INR 3.3) and thrombocytopenia (platelets-94) History of Hepatitis C, treatment naive. Genotype 1a quant over 9 million. However, pt recently admitted and left AMA on 10/10, LFTs during previous admission WNL. ? shocked liver. Admits to IV drug use, last use was 2 days ago. Paracentesis x 2 during previous admission, 09/25 1400 cc of fluid removed, 10/01 2000 cc of fluid removed. Fluid culture negative. - Abdominal pain- diffuse- states constant pain Abdomen is distended and firm, diffusely tender. CT abdomen and pelvis WO IV contrast (10/14) There is mild mural thickening of the left colon most characteristic of a mild colitis. Improvement in pleural effusions and basilar lung consolidation since September 30. Persistent ascites and diffuse anasarca. Dan catheter present in bladder. - Elevated lipase- lipase-968 - Anemia, normocytic - Lactic acidosis- Zosyn Plan: Pt coagulopathic with ? DIC and would not tolerate prep for colonoscopy at this time Stool samples Continue Zosyn Paracentesis when coagulopathy corrected Repeat hepatitis panel Acetaminophen level Monitor LFTs Supportive care Further recommendations based on clinical course and results of above Pt has been seen and examined by myself and Dr. Jennings and this note is written on his behalf (Feli Briseno) Physician Comments Seen and examined with MANAGER [employer]ES[employer], intubated/sedated. Family at bedside. Pt. made DNR with hospice comfort care by Mom. Gi will sign off. Thank you (Key Jennings MD) Feli Briseno Oct 15, 2017 08:42 Key Jennings MD Oct 15, 2017 18:17
--- NOTE | 2017-10-15 08:49 | HHI.CCPN ---
Subjective Remarks/Hospital Course Patient is a 37-year-old female presenting from home via EMS for evaluation of diarrhea, altered mental status. Mother states patient left AMA from the hospital 3 days ago. She just returned home this morning at 5 AM. Patient admits to using Marie. 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 She has signed out multiple times AMA while on antibiotics. Previous admission have shown pancytopenia DIC, pulmonary septic emboli. During the last admission patient was also noted to be in septic shock and was on pressors transiently. At that time she also had thoracentesis for bilateral effusions as well as a paracentesis for ascites. Patient had a CT surgery evaluation however was not deemed to be a candidate for surgery due to her ongoing IV drug use. Patient reportedly signed out AGAINST MEDICAL ADVICE on and showed up at home on 10/14 around 5 AM according to documentation in the ER. She reportedly admitted to using IV drugs including Marie. On evaluation in the ER patient was noted to be dehydrated with significant lactic acidosis as well as worsening renal function. She first felt to be septic and underwent CT chest abdomen pelvis which revealed evidence of colitis, ascites. She did complain of significant abdominal pain and diarrhea. Patient was cultured and was initiated on empiric antibiotics including IV Vanco/p.o. Flagyl. When I evaluated the patient in the ER she was lethargic though easily arousable. She knew she was in the hospital she was also complaining of abdominal pain however was requesting something to drink. History was obtained by reviewing records and discussion with ER STRAP BUCKLER/ nursing staff. Patient was too lethargic to give details of her history. During previous hospitalization patient was evaluated by Dr. Harp from [place] and was on IV Ancef prior to leaving the hospital AGAINST MEDICAL ADVICE. She had also been evaluated by CT surgery, hematology. 10/15 Patient is on 2L oxygen lethargic. Objective Vital Signs Date Time Temp Pulse Resp B/P (MAP) Pulse Ox O2 Delivery O2 Flow Rate FiO2 10/15/17 07:00 97.5 110 25 119/69 (86) 92 10/14/17 23:00 Nasal Cannula 2.00 Intake and Output 10/15/17 10/15/17 10/15/17 07:59 15:59 23:59 Intake Total 1724 ml Output Total 400 ml Balance 1324 ml Result Diagram: 10/15/17 0610 10/15/17 0610 Other Results Laboratory Tests Test 10/14/17 19:46 10/14/17 19:47 10/14/17 21:45 10/14/17 22:50 White Blood Count 10.5 TH/MM3 Red Blood Count 2.64 MIL/MM3 Hemoglobin 7.6 GM/DL Hematocrit 23.4 % Mean Corpuscular Volume 88.7 FL Mean Corpuscular Hemoglobin 28.8 PG Mean Corpuscular Hemoglobin Concent 32.5 % Red Cell Distribution Width 19.7 % Platelet Count 109 TH/MM3 Mean Platelet Volume 9.6 FL Neutrophils (%) (Auto) 84.6 % Lymphocytes (%) (Auto) 7.0 % Monocytes (%) (Auto) 8.2 % Eosinophils (%) (Auto) 0.0 % Basophils (%) (Auto) 0.2 % Neutrophils # (Auto) 8.9 TH/MM3 Lymphocytes # (Auto) 0.7 TH/MM3 Monocytes # (Auto) 0.9 TH/MM3 Eosinophils # (Auto) 0.0 TH/MM3 Basophils # (Auto) 0.0 TH/MM3 CBC Comment DIFF FINAL Differential Comment Prothrombin Time 24.2 SEC Prothromb Time International Ratio 2.4 RATIO Activated Partial Thromboplast Time 39.7 SEC Blood Urea Nitrogen 66 MG/DL Creatinine 2.02 MG/DL Random Glucose 35 MG/DL Total Protein 8.6 GM/DL Albumin 4.5 GM/DL Calcium Level 8.8 MG/DL Magnesium Level 2.1 MG/DL Alkaline Phosphatase 906 U/L Aspartate Amino Transf (AST/SGOT) 4267 U/L Alanine Aminotransferase (ALT/SGPT) 1214 U/L Total Bilirubin 2.3 MG/DL Sodium Level 135 MEQ/L Potassium Level 5.6 MEQ/L Chloride Level 105 MEQ/L Carbon Dioxide Level 8.5 MEQ/L Anion Gap 22 MEQ/L Estimat Glomerular Filtration Rate 28 ML/MIN Lactic Acid Level 9.2 mmol/L 5.6 mmol/L B-Type Natriuretic Peptide 625 PG/ML Lipase 968 U/L Urine Color Komal Urine Turbidity CLOUDY Urine pH 5.0 Urine Specific [place] 1.024 Urine Protein >=500 mg/dL Urine Glucose (UA) 50 mg/dL Urine Ketones TRACE mg/dL Urine Occult Blood LARGE Urine Nitrite NEG Urine Bilirubin NEG Urine Urobilinogen LESS THAN 2 mg/dL Urine Leukocyte Esterase NEG Urine RBC 73 /hpf Urine WBC 35 /hpf Urine Squamous Epithelial Cells 1 /hpf Urine Amorphous Sediment FEW Urine Bacteria RARE /hpf Microscopic Urinalysis Comment CATH-CULTURE IND Blood Gas Puncture Site RT RADIAL Blood Gas Patient Temperature 98.6 Blood Gas HCO3 11 mmol/L Blood Gas Base Excess -14.1 mmol/L Blood Gas Oxygen Saturation 88 % Arterial Blood pH 7.31 Arterial Blood Partial Pressure CO2 23 mmHg Arterial Blood Partial Pressure O2 74 mmHg Arterial Blood Oxygen Content 9.0 Vol % Arterial Blood Carboxyhemoglobin 1.6 % Arterial Blood Methemoglobin 1.6 % Blood Gas Hemoglobin 7.2 G/DL Oxygen Delivery Device NASAL CANNULA Blood Gas Liter Flow 2 L/M Nasal Screen MRSA (PCR) MRSA NOT DETECTED Test 10/15/17 06:10 White Blood Count 12.8 TH/MM3 Red Blood Count 2.56 MIL/MM3 Hemoglobin 7.4 GM/DL Hematocrit 22.4 % Mean Corpuscular Volume 87.3 FL Mean Corpuscular Hemoglobin 28.8 PG Mean Corpuscular Hemoglobin Concent 32.9 % Red Cell Distribution Width 20.5 % Platelet Count 94 TH/MM3 Mean Platelet Volume 9.6 FL Neutrophils (%) (Auto) 86.2 % Lymphocytes (%) (Auto) 6.7 % Monocytes (%) (Auto) 6.8 % Eosinophils (%) (Auto) 0.1 % Basophils (%) (Auto) 0.2 % Neutrophils # (Auto) 11.0 TH/MM3 Lymphocytes # (Auto) 0.9 TH/MM3 Monocytes # (Auto) 0.9 TH/MM3 Eosinophils # (Auto) 0.0 TH/MM3 Basophils # (Auto) 0.0 TH/MM3 CBC Comment AUTO DIFF Differential Comment AUTO DIFF CONFIRMED Platelet Estimate LOW Platelet Morphology Comment NORMAL Ovalocytes 1+ Prothrombin Time 33.5 SEC Prothromb Time International Ratio 3.3 RATIO Blood Urea Nitrogen 69 MG/DL Creatinine 2.33 MG/DL Random Glucose 81 MG/DL Total Protein 7.6 GM/DL Albumin 3.9 GM/DL Calcium Level 7.5 MG/DL Phosphorus Level 6.8 MG/DL Magnesium Level 1.9 MG/DL Alkaline Phosphatase 733 U/L Aspartate Amino Transf (AST/SGOT) 52097 U/L Alanine Aminotransferase (ALT/SGPT) 2757 U/L Total Bilirubin 2.3 MG/DL Sodium Level 139 MEQ/L Potassium Level 5.1 MEQ/L Chloride Level 105 MEQ/L Carbon Dioxide Level 12.0 MEQ/L Anion Gap 22 MEQ/L Estimat Glomerular Filtration Rate 24 ML/MIN Lactic Acid Level 10.2 mmol/L Imaging Last Impressions Chest X-Ray 10/14/171933 Signed Impressions: CONCLUSION: Bilateral airspace disease improved from October 03. Small effusions. Abdomen/Pelvis CT 10/14/171933 Signed Impressions: CONCLUSION: 1. There is mild mural thickening of the left colon most characteristic of a m ild colitis. 2. Improvement in pleural effusions and basilar lung consolidation since September 30. 3. Persistent ascites and diffuse anasarca. Dan catheter present in bladder. Chest CT 10/14/17 0000 Signed Impressions: CONCLUSION: 1. Improved pleural effusions with decrease in size on the right and near comp lete resolution of the left effusion. 2. Overall basilar lung consolidation has improved. 3. There are several new areas of small cavitation in the upper lungs and a mi xed pattern with some areas of consolidation improving and some of which are ne w. 4. No pericardial effusion. Objective Remarks GENERAL: Thin, chronically ill-appearing female. Presenting in no acute distress SKIN: Warm and dry. Jaundiced appearing HEAD: Atraumatic. Normocephalic. EYES: Pupils equal and round. Positive scleral icterus. No injection or drainage. ENT: No nasal bleeding or discharge. Mucous membranes pink and moist. NECK: Trachea midline. No JVD. CARDIOVASCULAR: S1S2 regular RESPIRATORY: No accessory muscle use. Diminished throughout GASTROINTESTINAL: Abdomen distended, mildly tender, positive bowel sounds, no rebound, no guarding MUSCULOSKELETAL: Extremities without clubbing, cyanosis. No obvious deformities. 1+ pitting edema to bilateral lower extremities. petechiae on bilateral shins. NEUROLOGICAL: Drowsy but arousable, oriented 3. No obvious cranial nerve deficits. Motor grossly within normal limits. Five out of 5 muscle strength in the arms and legs. Normal speech. A/P Assessment and Plan 37-year-old female with: Severe sepsis Bacterial endocarditis involving tricuspid valve/aortic valve Septic emboli Possible pneumonia ESTEFANIA- ? Hepatorenal syndrome Lactic acidosis Elevated LFTs Dehydration Diarrhea Colitis Anemia, Thrombocytopenia Coagulopathy Suspected DIC Ascites UTI Medical noncompliance IV drug use Plan: Neuro: Monitor neuro status. Morphine as needed for uncontrolled pain. CV: Monitor HR and [employer] keep MAP>65mmHg. Serial lactic acid monitoring till clear. Continue with bicarb drip. Has known endocarditis involving tricuspid valve and aortic valve however has not been medically compliant with antibiotis and signed out AGAINST MEDICAL ADVICE on 2017. Also not a candidate for surgery per CTS on previous admission. Will obtain 2D. Pulm: Continue with oxygen keep sats >92% Bronchodilators as needed. GI/liver: Clear liquid diet. Colitis noted on CT. Possible ischemia versus C. difficile. Check Stool for C. difficile GI is following. Once coagulopathy is corrected will proceed with US guided paracentesis Heme: Suspected DIC. Monitor CBC, coags, check Fibrinogen level. Will transfuse 2u FFP, Vitamin K 5 mg SQ x1. Keep Hgb >7 Renal/: IV hydration, strict intake output, monitor and replete electrolytes, follow BUN/creatinine. Continue bicarb drip-D5W with 150mEq NaHCO3 @ 200cc/hr. Serial lactic acid monitoring Consult Nephrology. ID: Follow-up cultures. Empiric antibiotic coverage with IV Zosyn, add Vanco, Flagyl. ID consult requested. Check stool for C. difficile. Endocrine: SSI with accuchecks Prophylaxis: Hold heparin/Lovenox in view of suspected DIC, thrombocytopenia and coagulopathy. On Protonix 40mg IV daily Consult palliative care to asses with goals of care. Patient is critically ill with multiorgan injury and recurrent endocarditis. Addendum [id number] Dr. Hernandez met with patient's mom/ family and elected to proceed with comfort measures only. Hospice service consulted. CCT 30 mins Zain Salas MD Oct 15, 2017 08:49
[2017-10-15] MEDS ORDERED: metroNIDAZOLE 500 MG INJ 100 ML IV SCH (09:00)
[2017-10-15] MEDS ORDERED: SODIUM CHLORIDE 0.9% FLUSH 10 ML FLUSH IV FLUSH SCH (09:00)
[2017-10-15] MEDS ORDERED: LORazepam 2 MG/ML VIAL IV PUSH ONE (09:00)
[2017-10-15] MEDS ORDERED: HALOPERIDOL LACTATE 5 MG/ML AMP IV PUSH ONE (09:00)
--- NOTE | 2017-10-15 09:46 | PD.CONS ---
History of Present Illness Service Infectious disease Consult Requested By Dr Shraddha Solorio Reason for Consult Evaluate patient with sepsis, MSSA endocarditis with incomplete treatment Primary Care Physician No Primary Care Physician Diagnoses: History of Present Illness Patient seen and examined. Records reviewed. Patient is a 37-year-old female, known to me from her hospitalization September 16 29 September 2012, brought into the hospital by the mother for further evaluation and treatment of her infection. 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 She signed out AMA and did not get treated. She came back to the hospital in July and at that time her blood cultures grew methicillin sensitive staph aureus, and again she signed out AGAINST MEDICAL ADVICE, and was not treated. She got readmitted September 16, and at that time her blood cultures grew methicillin sensitive staph aureus again. Her echocardiogram has shown progression of her tricuspid valve vegetation, and has also now shown an aortic valve vegetation. She had evidence of septic pulmonary emboli. She also had renal failure at that time, which slowly improved. Patient was supposed to complete her endocarditis treatment on October 29. During her last hospitalization, she was also evaluated by cardiothoracic surgeon, who felt patient is not a good surgical candidate because of her ongoing active IV drug use. Patient also had DIC which also improved. Patient signed out AMA on October 10, and apparently showed up in her home on the day of admission, and the mother brought her back to the hospital for further evaluation and treatment. She apparently admits to actively using IV drugs after she left the hospital. Since admission she has not been febrile. Patient remains quite lethargic. She has good blood pressure. Blood cultures are pending. CT of the chest showing the stable septic pulmonary emboli with improvement of the effusion. CT of the abdomen and pelvis showing some suggestion of mild colitis. Patient' s creatinine had gone up again to 2+. Infectious disease consultation has been requested to evaluate the patient Review of Systems ROS Limitations: Clinical Condition, Altered Mental Status Past Family Social History Allergies: Coded Allergies: No Known Allergies (Unverified Allergy, Unknown, 08/13/17) Past Medical History Hepatitis C Tricuspid and aortic valve endocarditis, MSSA Group A strep sepsis MSSA sepsis HIV negative during her last admission Known active IV drug use Renal insufficiency Past Surgical History None Active Ordered Medications Current Medications Medications (Trade) Dose Ordered Sig/Amy Route Start Time Stop Time Status Last Admin (NS Flush) 2 ml UNSCH PRN IV FLUSH 10/14/17 21:45 (NS Flush) 2 ml BID IV FLUSH 10/15/17 09:00 (Percocet 5-325 Mg) 1 tab Q4H PRN PO 10/14/17 21:45 (Morphine Inj) 4 mg Q6HR PRN IV PUSH 10/14/17 21:45 10/15/17 07:27 (Protonix Inj) 40 mg Q24H IV PUSH 10/14/17 22:00 10/14/17 23:08 (Zofran Odt) 4 mg Q6H PRN PO 10/14/17 22:15 10/15/17 07:28 (Duoneb Neb) 1 ampule Q2HR NEB PRN INH 10/14/17 21:45 10/15/17 08:46 ([facility] Nursing Information) 1 Q361D XX 10/14/17 21:45 10/14/17 23:08 (Chlorhexidine 2% Cloth) 3 pack Taper DAILY@04 TOP 10/15/17 04:00 10/11/18 03:59 10/15/17 04:00 (Chlorhexidine 2% Cloth) 3 pack UNSCH PRN TOP 10/14/17 21:45 (Senokot) 17.2 mg Q12H PRN PO 10/14/17 21:45 (Dulcolax Supp) 10 mg DAILY PRN RECTAL 10/14/17 21:45 Sodium Bicarbonate 150 meq/Dextrose 1,150 ml @ 200 mls/hr Q5H45M IV 10/14/17 22:15 10/15/17 04:02 Piperacillin Sod/ Tazobactam Sod 50 ml @ 100 mls/hr Q6H IV 10/15/17 03:00 10/15/17 07:28 Pharmacy Profile Note 0 ml @ 0 mls/hr UNSCH OTHER 10/15/17 08:30 Sodium Chloride 1,000 ml @ 999 mls/hr BOLUS ONCE IV 10/15/17 08:30 10/15/17 09:30 Metronidazole 100 ml @ 100 mls/hr Q8H IV 10/15/17 09:00 Dexmedetomidine HCl 200 mcg/ Sodium Chloride 52 ml @ 3.14 mls/hr TITRATE PRN IV 10/15/17 08:30 Family History Noncontributory current ID problem Social History Lives with her mom Smokes a pack a day of cigarettes No alcohol abuse Known IV drug use, including cocaine and heroin Physical Exam Vital Signs Vital Signs Date Time Temp Pulse Resp B/P (MAP) Pulse Ox O2 Delivery O2 Flow Rate FiO2 10/15/17 09:10 93 Simple Mask 15.00 10/15/17 07:00 97.5 110 25 119/69 (86) 92 10/15/17 06:00 121 28 111/54 (73) 93 10/15/17 06:00 110 10/15/17 05:00 106 22 126/63 (84) 91 10/15/17 04:00 97.5 105 25 139/67 (91) 92 10/15/17 04:00 105 10/15/17 03:00 112 49 179/81 (113) 96 10/15/17 02:00 93 19 121/65 (83) 96 10/15/17 02:00 93 10/15/17 01:00 93 17 118/68 (85) 94 10/15/17 00:45 94 14 114/66 (82) 96 10/15/17 00:30 95 18 117/67 (84) 94 10/15/17 00:15 92 18 117/68 (84) 94 10/15/17 00:00 92 10/15/17 00:00 96 30 108/60 (76) 91 10/15/17 00:00 98.4 96 30 108/60 (76) 91 10/14/17 23:00 106 10/14/17 23:00 106 10/14/17 23:00 93 Nasal Cannula 2.00 10/14/17 23:00 98.2 106 34 143/65 (91) 93 18 22:55 95 Nasal Cannula 2.00 10/14/17 22:30 18 22:18 102 19 122/64 (83) 98 Nasal Cannula 2.00 10/14/17 21:28 97 18 127/66 (86) 97 Nasal Cannula 2.00 10/14/17 20:24 94 Nasal Cannula 2.00 10/14/17 20:23 88 Room Air 10/14/17 19:51 98 17 111/58 (75) 99 Room Air 10/14/17 19:50 99 Room Air 10/14/17 19:29 98.5 109 19 Physical Exam GENERAL: Patient is a well-nourished, well-developed patient, lethargic, not in respiratory distress. SKIN: Warm and dry. Has petechial rash in her lower extremity. Did not see any splinter hemorrhage HEAD: Atraumatic. Normocephalic. No temporal wasting, or tenderness. EYES: Pale conjunctiva. No petechia or hemorrhage. Pupils equal, round and reactive to light. Extraocular movements full and intact. No scleral icterus. No injection or drainage. EARS, NOSE AND THROAT: Nose without bleeding or purulent nasal discharge. No sinus tenderness. Dry oral mucosa NECK: Trachea midline. Supple and not tender, no meningeal signs CARDIOVASCULAR: Regular rate and rhythm. Tachycardic no murmurs, rubs or gallops heard RESPIRATORY: Diffuse rhonchi bilaterally ABDOMEN: Distended abdomen, bowel sounds present and hypoactive, with diffuse abdominal tenderness. No guarding. No rebound. EXTREMITIES: No clubbing, cyanosis, or edema.No joint effusion, has good ROM. No calf tenderness. Well perfused and warm. NEUROLOGICAL: Lethargic, no Babinski, no ankle clonus PSYCHIATRIC: Unable to assess LINE: No evidence of infection Laboratory Laboratory Tests Test 10/14/17 19:46 10/14/17 19:47 10/14/17 21:45 10/14/17 22:50 White Blood Count 10.5 Red Blood Count 2.64 Hemoglobin 7.6 Hematocrit 23.4 Mean Corpuscular Volume 88.7 Mean Corpuscular Hemoglobin 28.8 Mean Corpuscular Hemoglobin Concent 32.5 Red Cell Distribution Width 19.7 Platelet Count 109 Mean Platelet Volume 9.6 Neutrophils (%) (Auto) 84.6 Lymphocytes (%) (Auto) 7.0 Monocytes (%) (Auto) 8.2 Eosinophils (%) (Auto) 0.0 Basophils (%) (Auto) 0.2 Neutrophils # (Auto) 8.9 Lymphocytes # (Auto) 0.7 Monocytes # (Auto) 0.9 Eosinophils # (Auto) 0.0 Basophils # (Auto) 0.0 CBC Comment DIFF FINAL Differential Comment Prothrombin Time 24.2 Prothromb Time International Ratio 2.4 Activated Partial Thromboplast Time 39.7 Blood Urea Nitrogen 66 Creatinine 2.02 Random Glucose 35 Total Protein 8.6 Albumin 4.5 Calcium Level 8.8 Magnesium Level 2.1 Alkaline Phosphatase 906 Aspartate Amino Transf (AST/SGOT) 4267 Alanine Aminotransferase (ALT/SGPT) 1214 Total Bilirubin 2.3 Sodium Level 135 Potassium Level 5.6 Chloride Level 105 Carbon Dioxide Level 8.5 Anion Gap 22 Estimat Glomerular Filtration Rate 28 Lactic Acid Level 9.2 5.6 B-Type Natriuretic Peptide 625 Lipase 968 Urine Color Komal Urine Turbidity CLOUDY Urine pH 5.0 Urine Specific [place] 1.024 Urine Protein >=500 Urine Glucose (UA) 50 Urine Ketones TRACE Urine Occult Blood LARGE Urine Nitrite NEG Urine Bilirubin NEG Urine Urobilinogen LESS THAN 2 Urine Leukocyte Esterase NEG Urine RBC 73 Urine WBC 35 Urine Squamous Epithelial Cells 1 Urine Amorphous Sediment FEW Urine Bacteria RARE Microscopic Urinalysis Comment CATH-CULTURE IND Blood Gas Puncture Site RT RADIAL Blood Gas Patient Temperature 98.6 Blood Gas HCO3 11 Blood Gas Base Excess -14.1 Blood Gas Oxygen Saturation 88 Arterial Blood pH 7.31 Arterial Blood Partial Pressure CO2 23 Arterial Blood Partial Pressure O2 74 Arterial Blood Oxygen Content 9.0 Arterial Blood Carboxyhemoglobin 1.6 Arterial Blood Methemoglobin 1.6 Blood Gas Hemoglobin 7.2 Oxygen Delivery Device NASAL CANNULA Blood Gas Liter Flow 2 Nasal Screen MRSA (PCR) MRSA NOT DETECTED Test 10/15/17 06:10 White Blood Count 12.8 Red Blood Count 2.56 Hemoglobin 7.4 Hematocrit 22.4 Mean Corpuscular Volume 87.3 Mean Corpuscular Hemoglobin 28.8 Mean Corpuscular Hemoglobin Concent 32.9 Red Cell Distribution Width 20.5 Platelet Count 94 Mean Platelet Volume 9.6 Neutrophils (%) (Auto) 86.2 Lymphocytes (%) (Auto) 6.7 Monocytes (%) (Auto) 6.8 Eosinophils (%) (Auto) 0.1 Basophils (%) (Auto) 0.2 Neutrophils # (Auto) 11.0 Lymphocytes # (Auto) 0.9 Monocytes # (Auto) 0.9 Eosinophils # (Auto) 0.0 Basophils # (Auto) 0.0 CBC Comment AUTO DIFF Differential Comment AUTO DIFF CONFIRMED Platelet Estimate LOW Platelet Morphology Comment NORMAL Ovalocytes 1+ Prothrombin Time 33.5 Prothromb Time International Ratio 3.3 Blood Urea Nitrogen 69 Creatinine 2.33 Random Glucose 81 Total Protein 7.6 Albumin 3.9 Calcium Level 7.5 Phosphorus Level 6.8 Magnesium Level 1.9 Alkaline Phosphatase 733 Aspartate Amino Transf (AST/SGOT) 89690 Alanine Aminotransferase (ALT/SGPT) 2757 Total Bilirubin 2.3 Sodium Level 139 Potassium Level 5.1 Chloride Level 105 Carbon Dioxide Level 12.0 Anion Gap 22 Estimat Glomerular Filtration Rate 24 Lactic Acid Level 10.2 Date/Time Source Procedure Growth Status 10/14/17 19:47 Blood Peripheral Aerobic Blood Culture Pending Received 10/14/17 19:47 Blood Peripheral Anaerobic Blood Culture Pending Received 10/14/17 19:47 Urine Catheterized Urine Urine Culture Pending Received Result Diagram: 10/15/17 0610 10/15/17 0610 Imaging RADIOLOGY STUDIES/FILMS REVIEWED Last Impressions Chest X-Ray 10/14/171933 Signed Impressions: CONCLUSION: Bilateral airspace disease improved from October 03. Small effusions. Abdomen/Pelvis CT 10/14/171933 Signed Impressions: CONCLUSION: 1. There is mild mural thickening of the left colon most characteristic of a m ild colitis. 2. Improvement in pleural effusions and basilar lung consolidation since September 30. 3. Persistent ascites and diffuse anasarca. Dan catheter present in bladder. Chest CT 10/14/17 0000 Signed Impressions: CONCLUSION: 1. Improved pleural effusions with decrease in size on the right and near comp lete resolution of the left effusion. 2. Overall basilar lung consolidation has improved. 3. There are several new areas of small cavitation in the upper lungs and a mi xed pattern with some areas of consolidation improving and some of which are ne w. 4. No pericardial effusion. Assessment and Plan Assessment and Plan IMPRESSION Known MSSA TV and AV endocarditis, has incomplete Rx, supposed to finish Rx October 29, but signed out AMA - has active IVDU - known septic lung emboli Renal insufficiency, likely due to her infection Thrombocytopenia, ?DIC, vs due to chronic liver disease Hepatitis C UTI Mild colitis on CT RECOMMENDATION Follow C/S Continue Zosyn for now Change Flagyl to po to cover colitis Agree with checking C diff toxin Vanco level today and redose if low If repeat BC negative, will resume Ancef for her MSSA endocarditis Monitor progress I will determine course of Rx once work-up is completed Patient has been evaluated by CTS and not a surgical candidate due to her active IVDU She clearly has shown progression of her infection, due to poor compliance, signing out AMA and continuing IVDU I will follow along with you Thank you for this consultation Discussed Condition With D/W Milana Caruso MD Oct 15, 2017 09:46
[2017-10-15 11:13] LABS: RANDOM VANCOMYCIN 15.1 COMMENT
--- NOTE | 2017-10-15 11:16 | PD.CONS ---
HPI Service Nephrology Consult Requested By Reason for Consult Acute and chronic kidney disease Primary Care Physician No Primary Care Physician History of Present Illness Patient is a 37-year-old white female IVDA, endocarditis, liver failure, hepatitis C positivity, ascites, patient has left the hospital multiple times and she signed AMA, she was treated for endocarditis kidney function did improve she has hepatitis C positivity and now came in with septic shock again worsening renal failure low blood pressure, ascites, increasing liver function studies and lethargy and confusion with increasing shortness of breath. She was taken out by her boyfriend and then left at the mother home, she called 911 as she was afraid that she has been using drugs and has extreme weakness unable to take care of herself. Review of Systems ROS Limitations: Clinical Condition Constitutional: COMPLAINS OF: Fatigue Past Family Social History Allergies: Coded Allergies: No Known Allergies (Unverified Allergy, Unknown, 08/13/17) Past Medical History Hepatitis C Tricuspid valve endocarditis Group A strep sepsis MSSA sepsis Known active IV drug use Ascites Chronic liver disease Past Surgical History None Reported Medications Reported Meds & Active Scripts Active No Active Prescriptions or Reported Medications Active Ordered Medications Current Medications Medications (Trade) Dose Ordered Sig/Amy Route Start Time Stop Time Status Last Admin (NS Flush) 2 ml UNSCH PRN IV FLUSH 10/14/17 21:45 (NS Flush) 2 ml BID IV FLUSH 10/15/17 09:00 10/15/17 09:00 (Percocet 5-325 Mg) 1 tab Q4H PRN PO 10/14/17 21:45 (Morphine Inj) 4 mg Q6HR PRN IV PUSH 10/14/17 21:45 10/15/17 07:27 (Protonix Inj) 40 mg Q24H IV PUSH 10/14/17 22:00 10/14/17 23:08 (Zofran Odt) 4 mg Q6H PRN PO 10/14/17 22:15 10/15/17 07:28 (Duoneb Neb) 1 ampule Q2HR NEB PRN INH 10/14/17 21:45 10/15/17 08:46 ([facility] Nursing Information) 1 Q361D XX 10/14/17 21:45 10/14/17 23:08 (Chlorhexidine 2% Cloth) 3 pack Taper DAILY@04 TOP 10/15/17 04:00 10/11/18 03:59 10/15/17 04:00 (Chlorhexidine 2% Cloth) 3 pack UNSCH PRN TOP 10/14/17 21:45 (Senokot) 17.2 mg Q12H PRN PO 10/14/17 21:45 (Dulcolax Supp) 10 mg DAILY PRN RECTAL 10/14/17 21:45 Sodium Bicarbonate 150 meq/Dextrose 1,150 ml @ 200 mls/hr Q5H45M IV 10/14/17 22:15 10/15/17 04:02 Piperacillin Sod/ Tazobactam Sod 50 ml @ 100 mls/hr Q6H IV 10/15/17 03:00 10/15/17 07:28 Pharmacy Profile Note 0 ml @ 0 mls/hr UNSCH OTHER 10/15/17 08:30 Dexmedetomidine HCl 200 mcg/ Sodium Chloride 52 ml @ 3.14 mls/hr TITRATE PRN IV 10/15/17 08:30 10/15/17 09:47 (Flagyl) 500 mg Q8HR PO 10/15/17 14:00 Family History Noncontributory Social History IVDA, smoking, marijuana use Physical Exam Vital Signs Vital Signs Date Time Temp Pulse Resp B/P (MAP) Pulse Ox O2 Delivery O2 Flow Rate FiO2 10/15/17 10:56 103 23 102/59 93 10/15/17 10:00 110 10/15/17 09:10 93 Simple Mask 15.00 10/15/17 08:00 110 10/15/17 08:00 97.5 110 25 119/69 (86) 92 10/15/17 07:00 97.5 110 25 119/69 (86) 92 10/15/17 06:00 121 28 111/54 (73) 93 10/15/17 06:00 110 10/15/17 05:00 106 22 126/63 (84) 91 10/15/17 04:00 97.5 105 25 139/67 (91) 92 10/15/17 04:00 105 10/15/17 03:00 112 49 179/81 (113) 96 10/15/17 02:00 93 19 121/65 (83) 96 10/15/17 02:00 93 10/15/17 01:00 93 17 118/68 (85) 94 10/15/17 00:45 94 14 114/66 (82) 96 10/15/17 00:30 95 18 117/67 (84) 94 10/15/17 00:15 92 18 117/68 (84) 94 10/15/17 00:00 92 10/15/17 00:00 96 30 108/60 (76) 91 10/15/17 00:00 98.4 96 30 108/60 (76) 91 10/14/17 23:00 106 10/14/17 23:00 106 10/14/17 23:00 93 Nasal Cannula 2.00 10/14/17 23:00 98.2 106 34 143/65 (91) 93 10/14/17 22:55 95 Nasal Cannula 2.00 10/14/17 22:30 10/14/17 22:18 102 19 122/64 (83) 98 Nasal Cannula 2.00 10/14/17 21:28 97 18 127/66 (86) 97 Nasal Cannula 2.00 10/14/17 20:24 94 Nasal Cannula 2.00 10/14/17 20:23 88 Room Air 10/14/17 19:51 98 17 111/58 (75) 99 Room Air 10/14/17 19:50 99 Room Air 10/14/17 19:29 98.5 109 19 Physical Exam GENERAL: Sick appearing patient. On nonrebreather facemask oxygen SKIN: Warm and dry. HEAD: Normocephalic. EYES: No scleral icterus. No injection or drainage. NECK: Supple, trachea midline. No JVD or lymphadenopathy. CARDIOVASCULAR: Tachycardia RESPIRATORY: Breath sounds diminished at bases with rhonchi GASTROINTESTINAL: Abdomen soft, distended. EXTREMITIES: No cyanosis, 1-2+ edema. NEUROLOGICAL: Obtunded Laboratory Laboratory Tests Test 10/14/17 19:46 10/14/17 19:47 10/14/17 21:45 10/14/17 22:50 White Blood Count 10.5 Red Blood Count 2.64 Hemoglobin 7.6 Hematocrit 23.4 Mean Corpuscular Volume 88.7 Mean Corpuscular Hemoglobin 28.8 Mean Corpuscular Hemoglobin Concent 32.5 Red Cell Distribution Width 19.7 Platelet Count 109 Mean Platelet Volume 9.6 Neutrophils (%) (Auto) 84.6 Lymphocytes (%) (Auto) 7.0 Monocytes (%) (Auto) 8.2 Eosinophils (%) (Auto) 0.0 Basophils (%) (Auto) 0.2 Neutrophils # (Auto) 8.9 Lymphocytes # (Auto) 0.7 Monocytes # (Auto) 0.9 Eosinophils # (Auto) 0.0 Basophils # (Auto) 0.0 CBC Comment DIFF FINAL Differential Comment Prothrombin Time 24.2 Prothromb Time International Ratio 2.4 Activated Partial Thromboplast Time 39.7 Blood Urea Nitrogen 66 Creatinine 2.02 Random Glucose 35 Total Protein 8.6 Albumin 4.5 Calcium Level 8.8 Magnesium Level 2.1 Alkaline Phosphatase 906 Aspartate Amino Transf (AST/SGOT) 4267 Alanine Aminotransferase (ALT/SGPT) 1214 Total Bilirubin 2.3 Sodium Level 135 Potassium Level 5.6 Chloride Level 105 Carbon Dioxide Level 8.5 Anion Gap 22 Estimat Glomerular Filtration Rate 28 Lactic Acid Level 9.2 5.6 B-Type Natriuretic Peptide 625 Lipase 968 Urine Color Komal Urine Turbidity CLOUDY Urine pH 5.0 Urine Specific [place] 1.024 Urine Protein >=500 Urine Glucose (UA) 50 Urine Ketones TRACE Urine Occult Blood LARGE Urine Nitrite NEG Urine Bilirubin NEG Urine Urobilinogen LESS THAN 2 Urine Leukocyte Esterase NEG Urine RBC 73 Urine WBC 35 Urine Squamous Epithelial Cells 1 Urine Amorphous Sediment FEW Urine Bacteria RARE Microscopic Urinalysis Comment CATH-CULTURE IND Blood Gas Puncture Site RT RADIAL Blood Gas Patient Temperature 98.6 Blood Gas HCO3 11 Blood Gas Base Excess -14.1 Blood Gas Oxygen Saturation 88 Arterial Blood pH 7.31 Arterial Blood Partial Pressure CO2 23 Arterial Blood Partial Pressure O2 74 Arterial Blood Oxygen Content 9.0 Arterial Blood Carboxyhemoglobin 1.6 Arterial Blood Methemoglobin 1.6 Blood Gas Hemoglobin 7.2 Oxygen Delivery Device NASAL CANNULA Blood Gas Liter Flow 2 Nasal Screen MRSA (PCR) MRSA NOT DETECTED Test 10/15/17 06:10 10/15/17 09:50 10/15/17 10:20 White Blood Count 12.8 Red Blood Count 2.56 Hemoglobin 7.4 Hematocrit 22.4 Mean Corpuscular Volume 87.3 Mean Corpuscular Hemoglobin 28.8 Mean Corpuscular Hemoglobin Concent 32.9 Red Cell Distribution Width 20.5 Platelet Count 94 Mean Platelet Volume 9.6 Neutrophils (%) (Auto) 86.2 Lymphocytes (%) (Auto) 6.7 Monocytes (%) (Auto) 6.8 Eosinophils (%) (Auto) 0.1 Basophils (%) (Auto) 0.2 Neutrophils # (Auto) 11.0 Lymphocytes # (Auto) 0.9 Monocytes # (Auto) 0.9 Eosinophils # (Auto) 0.0 Basophils # (Auto) 0.0 CBC Comment AUTO DIFF Differential Comment AUTO DIFF CONFIRMED Platelet Estimate LOW Platelet Morphology Comment NORMAL Ovalocytes 1+ Prothrombin Time 33.5 Prothromb Time International Ratio 3.3 Fibrinogen 92 Blood Urea Nitrogen 69 Creatinine 2.33 Random Glucose 81 Total Protein 7.6 Albumin 3.9 Calcium Level 7.5 Phosphorus Level 6.8 Magnesium Level 1.9 Alkaline Phosphatase 733 Aspartate Amino Transf (AST/SGOT) 41296 Alanine Aminotransferase (ALT/SGPT) 2757 Total Bilirubin 2.3 Sodium Level 139 Potassium Level 5.1 Chloride Level 105 Carbon Dioxide Level 12.0 Anion Gap 22 Estimat Glomerular Filtration Rate 24 Lactic Acid Level 10.2 Urine Opiates Screen POS Urine Barbiturates Screen NEG Urine Amphetamines Screen NEG Urine Benzodiazepines Screen NEG Urine Cocaine Screen POS Urine Cannabinoids Screen NEG Random Vancomycin Level 15.1 Date/Time Source Procedure Growth Status 10/14/17 19:47 Blood Peripheral Aerobic Blood Culture - Preliminary NO GROWTH IN 1 DAY Resulted 10/14/17 19:47 Blood Peripheral Anaerobic Blood Culture - Preliminary NO GROWTH IN 1 DAY Resulted 10/14/17 19:47 Urine Catheterized Urine Urine Culture Pending Received Result Diagram: 10/15/17 0610 10/15/17 0610 Imaging Last Impressions Chest X-Ray 10/14/171933 Signed Impressions: CONCLUSION: Bilateral airspace disease improved from October 03. Small effusions. Abdomen/Pelvis CT 10/14/171933 Signed Impressions: CONCLUSION: 1. There is mild mural thickening of the left colon most characteristic of a m ild colitis. 2. Improvement in pleural effusions and basilar lung consolidation since September 30. 3. Persistent ascites and diffuse anasarca. Dan catheter present in bladder. Chest CT 10/14/17 0000 Signed Impressions: CONCLUSION: 1. Improved pleural effusions with decrease in size on the right and near comp lete resolution of the left effusion. 2. Overall basilar lung consolidation has improved. 3. There are several new areas of small cavitation in the upper lungs and a mi xed pattern with some areas of consolidation improving and some of which are ne w. 4. No pericardial effusion. Assessment and Plan Problem List: (1) Acute renal failure ICD Codes: N17.9 - Acute kidney failure, unspecified Plan: Worsening due to liver failure and continued use of IVDA, she had septic emboli from which she recovered but did not stay long enough to get coverage with antibiotics and she has a relapse of IVDA Discussed with mother her prognosis remains extremely poor due to multiorgan involvement Continue supportive measures IV antibiotics and IV hydration Monitor the ascites Check urine sodium and creatinine Avoid nephrotoxic agents (2) Acute liver failure ICD Codes: K72.00 - Acute and subacute hepatic failure without coma Status: Acute Plan: Worsening liver failure due to underlying use of IVDA, hepatitis C, endocarditis and poor compliance with treatment (3) Endocarditis ICD Codes: I38 - Endocarditis, valve unspecified Status: Acute Plan: He treated with Zosyn and add metronidazole (4) Metabolic acidosis ICD Codes: E87.2 - Acidosis Status: Acute Plan: Patient was lactic acidosis on sodium bicarbonate drip (5) Polysubstance abuse ICD Codes: F19.10 - Other psychoactive substance abuse, uncomplicated Status: Chronic Plan: Patient is actively using IVDA Problem Qualifiers (1) Acute renal failure: Qualified Codes: N17.9 - Acute kidney failure, unspecified (2) Acute liver failure: Qualified Codes: K72.00 - Acute and subacute hepatic failure without coma Azalea Gillette MD Oct 15, 2017 11:16
[2017-10-15 11:22] LABS: ACETAMINOPHEN LESS THAN 2.0 MCG/ML (10.0-30.0)
--- NOTE | 2017-10-15 12:10 | PD.CONS ---
Consult Service Palliative Care . Consult Requested By Dr. Salas . Primary Care Physician No Primary Care Physician . Reason for Consultation a. To assist with evaluation and management of symptoms including: pain; dyspnea; agitation b. To assist medical decision maker(s) with: better understanding of current medical conditions; weighing benefits/burdens of medical treatment options; making medical treatment decisions. 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 The patient had left the hospital 3 days prior against medical advice and showed up at home at 0500 on . The patient had admitted to using "Marie." The patients recent hospital visits are as follows: 07/13/17 - 07/18/17 -- Left against medical advice 08/13/17 - 08/16/17 -- left against medical advice 09/16/17 - 10/10/17 -- left against medical advice The patient has been in drug rehabilitation on 2 separate occasions. Both times she did not complete the rehab program. She has been primarily homeless. Periodically, her mother will go out and look for her. Typically she is in the [place] somewhere. She will come home for a few days to get something to eat and get a shower. The patient has a history of mental illness for which she has been on and off Social Security disability for approximately 10 years. Mother reports that the most often used diagnosis for this is bipolar disorder. The patient has had periods of time when she has been stabilized with psychoactive medication. However she quickly begins using street drugs again, stops going back for mental health visits, and gets off her medication. During the above referenced hospitalizations blood cultures at different times have been positive for Group A beta strep and MSSA. Imaging has shown pulmonary lung nodules (some cavitary) consistent with sebtic emboli. She has had DIC, acute kidney injury, pleural effusions, and ascites requiring paracentesis x two . The patient was evaluated on previous admissions by cardiothoracic surgery who felt the patient was not a good surgical candidate. Echocardiogram from 09/21/17 showed an ejection fraction of 50-55%. There was a vegetation on the non-coronary cusp of the aortic valve abd a large mobile vegetation on the tricuspic valve. There was moderate aortic valve and tricuspid regurgitation. A large pleural effusion was noted. Hep C RNA by PCR on 09/26/17 was 9,950,000 Since 09/16/17 she has required 4 units of PRBCs. In the ED on this admission , initial vital signs showed: Temperature 98.5; pulse 97; respiratory rate 18; blood pressure 127/66; O2 sat at 97% on O2 via nasal cannula at 2 L a minute Initial physical examination in the emergency department noted the following: Patient was afebrile. She was noted to be thin and chronically ill-appearing. There is no acute distress. She appeared jaundiced. She was tachycardic. There is no accessory muscle use. Lung sounds diminished throughout. Abdomen was mildly tender and distended. There is 1+ pitting edema to bilateral lower extremities. Dorsal aspect of the feet were mottled. Patient was drowsy but arousable. She was oriented 3. Initial diagnostic test reveal the following: * CBC showed WBC 10.5; hemoglobin 7.6; platelet count 109 * Coag profile showed PT 24.2; INR 2.4; PTT 39.7 * Chemistry profile showed BUN 66; creatinine 2.02; glucose 35; calcium 8.8; magnesium 2.1; sodium 135; potassium 5.6; chloride 105; CO2 8.5; anion gap 22; GFR 28; lactic acid 9.2 * Liver function tests showed total bilirubin 2.3; alkaline phosphatase 906; AST 4267; ALT 1214; total protein 8.6; albumin 4.5 * Urinalysis remarkable for trace ketones; large occult blood; negative nitrites ; negative leukocyte esterase; 73 RBC; 35 WBCs * B type natruretic peptide elevated at 625 * Lipase elevated at 968 * ABGs on O2 via nasal cannula at 2 L a minute showed pH 7.31; PCO2 23; PO2 74; bicarbonate 11; base excess -14.1 * Chest x-ray showed bilateral airspace disease improved from 10/03/2017. Small effusions were noted * CT of the abdomen and pelvis showed mild mural thickening of the left colon characteristic of a mild colitis; improvement in pleural effusions and basilar lung consolidation since 09/30/17; persistent ascites and diffuse anasarca * CT of the chest showed improved pleural effusions as above; overall basilar lung consolidation is improved; several new areas of small cavitation in the upper lungs and a mixed pattern with some areas of consolidation improving and some of which are new. No pericardial effusion was noted. * In the emergency department, IV access was established. The patient was given an amp of D50 with blood glucose increasing to 97. She was cautiously rehydrated due to the history of congestive heart failure. Critical care was consulted. The patient received 2 Amps of bicarbonate. The patient was started on empiric antibiotics including intravenous vancomycin and oral Flagyl. Gastroenterology has been consulted and is noted the significant increase in liver function abnormalities since the last visit. AST went from 4267 at time of admission to 11,331 today. Similarly, ALT went from 1214 to 2757. High on their differential is shock liver. There is a concern for possible DIC and did not feel the patient would tolerate a prep for colonoscopy at this point. Infectious disease has been consulted. They note the history of tricuspid valve and aortic valve endocarditis and the incomplete antibiotic regimen. She was supposed to finish her course of therapy by October 29 but this was interrupted when she signed out AGAINST MEDICAL ADVICE. Also noted the septic lung emboli. Infectious disease felt the patient's renal insufficiency was secondary to the infection. Nephrology has also been consulted. Renal function has declined just since admission with creatinine going from 2.02 up to 2.33 and GFR declining from 28 down to 24. Pain level scores have mostly been 8-10. The pain has mostly been abdominal or generalized on this admission and is described at "stabbing and tightness." Pain is currently being managed with iv morphine sulfate at 4mg iv q 6 hours prn. The pain went from #8 to #6 when the morphine was administered last at 0350. Blood cultures have shown no growth to date. . Function/Cognitive Trajectory The patient has been diagnosed with endocarditis since June of this year. She gets hospitalized due to her symptoms, improved somewhat with antibiotic therapy , leaves AGAINST MEDICAL ADVICE, and is back on the street using again until she gets quite ill forcing her back to the emergency department. . Review of Systems Constitutional: COMPLAINS OF: Fatigue, Fever, Weight gain (Mostly due to ascites), Weight loss (Weight loss occurs when ascites is drained.), Change in appetite, Pain, Generalized weakness, DENIES: Dizziness Endocrine: DENIES: Polydipsia, Polyuria (Patient is sedated, quite ill, and nonverbal. Review of systems taken from the medical record and from the patient 's mother as best as possible.) Eyes: COMPLAINS OF: Vision loss Ears, nose, mouth, throat: DENIES: Hearing loss, Oral lesions, Running Nose, Epistaxis Respiratory: COMPLAINS OF: Cough, Wheezing, Sputum production, Shortness of breath, DENIES: Hemoptysis Cardiovascular: COMPLAINS OF: Palpitations, Dyspnea on Exertion, DENIES: Syncope Gastrointestinal: COMPLAINS OF: Abdominal pain, Diarrhea, Nausea, DENIES: Bloody stools, Dyspepsia or heartburn Musculoskeletal: COMPLAINS OF: Back pain, Neck pain, DENIES: Joint pain, Muscle aches Hematologic/Lymphatics: COMPLAINS OF: Bruising, History of transfusions Immunologic/Allergic: COMPLAINS OF: Eczema Neurologic: COMPLAINS OF: Headache, Seizures, DENIES: Paresthesias Psychiatric: COMPLAINS OF: Anxiety, Confusion, Depression, Agitation Past Family Social History Coded Allergies: No Known Allergies (Unverified Allergy, Unknown, 08/13/17) Past Medical History Endocarditis Pulmonary septic emboli Hepatitis C --has not been treated IV drug use Bipolar disorder anxiety Headaches Depression Seizure disorder Past Surgical History None reported Reported Medications Patient left the hospital AGAINST MEDICAL ADVICE and was not known to be taking any prescription medications at the time of readmission. . Current Medications Medications (Trade) Dose Ordered Sig/Amy Route Start Time Stop Time Status Last Admin (NS Flush) 2 ml UNSCH PRN IV FLUSH 10/14/17 21:45 (NS Flush) 2 ml BID IV FLUSH 10/15/17 09:00 10/15/17 09:00 (Percocet 5-325 Mg) 1 tab Q4H PRN PO 10/14/17 21:45 (Morphine Inj) 4 mg Q6HR PRN IV PUSH 10/14/17 21:45 10/15/17 07:27 (Protonix Inj) 40 mg Q24H IV PUSH 10/14/17 22:00 10/14/17 23:08 (Zofran Odt) 4 mg Q6H PRN PO 10/14/17 22:15 10/15/17 07:28 (Duoneb Neb) 1 ampule Q2HR NEB PRN INH 10/14/17 21:45 10/15/17 08:46 ([facility] Nursing Information) 1 Q361D XX 10/14/17 21:45 10/14/17 23:08 (Chlorhexidine 2% Cloth) 3 pack Taper DAILY@04 TOP 10/15/17 04:00 10/11/18 03:59 10/15/17 04:00 (Chlorhexidine 2% Cloth) 3 pack UNSCH PRN TOP 10/14/17 21:45 (Senokot) 17.2 mg Q12H PRN PO 10/14/17 21:45 (Dulcolax Supp) 10 mg DAILY PRN RECTAL 10/14/17 21:45 Sodium Bicarbonate 150 meq/Dextrose 1,150 ml @ 200 mls/hr Q5H45M IV 10/14/17 22:15 10/15/17 04:02 Piperacillin Sod/ Tazobactam Sod 50 ml @ 100 mls/hr Q6H IV 10/15/17 03:00 10/15/17 07:28 Pharmacy Profile Note 0 ml @ 0 mls/hr UNSCH OTHER 10/15/17 08:30 Dexmedetomidine HCl 200 mcg/ Sodium Chloride 52 ml @ 3.14 mls/hr TITRATE PRN IV 10/15/17 08:30 10/15/17 09:47 (Flagyl) 500 mg Q8HR PO 10/15/17 14:00 . Family History Patient's father is alive and has experienced some heart problem causing palpitations. The patient's mother is alive and has struggled with alcoholism but is sober. Alcoholism runs in the family. There was a maternal grandmother now who had heart disease and a valve replacement. A paternal grandmother had cancer. . Substance Use Tobacco: Patient has been a 1-2 pack per day smoker for most of her adult life. Alcohol: Alcohol has not been the patient's drug of choice but she would drink when available. Prescription med abuse: No known prescription med abuse Illicits: Admitted use of IV heroin. Drug screens have also come back positive for cocaine, opiates, benzos during different visits.. . Psychosocial History Patient is originally from the [place], [place] area. She moved to [place] approximately 8 or 9 years ago. GED education. 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 Has not worked for approximately 10 years due to bipolar disorder and substance abuse. She has been on and off SSI for about 10 years. The patient never . She has 3 children. One son was adopted out as a . Ethel (16) and Crescencio (18) live with their father mother in [facility]. The patient is primarily homeless. She comes to live with her mother periodically to get food and to shower. The patient's mother also has her own mother living with her who has dementia. . Spiritual/Cultural Factors Patient comes from a [facility] and Confucianist tradition. Mother believes patient would want to have a trade embalmer visit at this point in time. . Living Will: Never completed Health Care Surrogate: Never completed Durable Power of Mining [employer] Quarrying Machinery Repairer: Never completed Date completed: There are no written advanced directives and therefore no dates of those directives. Health Care Surrogate(s): There is no written designation of healthcare surrogate. . Documented care wishes: There is no written documentation of healthcare preferences or wishes. . Today's verbally stated goals: Patient is unable to verbally state her own healthcare goals. . Family/friends goals: Patient's mother is the proxy healthcare decision maker. Based on recent conversations with the patient, mother feels that the patient is tired of the de jesus and is no longer willing to fight. The patient herself had requested to stay at home and be placed on hospice rather than going to the emergency department. She only came to the hospital on her mother's insistence. According to the patient's mother, the patient knows she is dying. She is asked the mother to say goodbye to her kids for her. Mother is what valiantly for this patient's life. At this time mother wants to honor the patient's wishes and allow for a peaceful . . Ethical and Legal Issues Patient is capacitated with no reasonable hope that she will regain capacity at this time. . Physical Exam Vital Signs Date Time Temp Pulse Resp B/P (MAP) Pulse Ox O2 Delivery O2 Flow Rate FiO2 10/15/17 10:56 103 23 102/59 93 10/15/17 10:00 110 10/15/17 09:10 93 Simple Mask 15.00 10/15/17 08:00 110 10/15/17 08:00 97.5 110 25 119/69 (86) 92 10/15/17 07:00 97.5 110 25 119/69 (86) 92 10/15/17 06:00 121 28 111/54 (73) 93 10/15/17 06:00 110 10/15/17 05:00 106 22 126/63 (84) 91 10/15/17 04:00 97.5 105 25 139/67 (91) 92 10/15/17 04:00 105 10/15/17 03:00 112 49 179/81 (113) 96 10/15/17 02:00 93 19 121/65 (83) 96 10/15/17 02:00 93 10/15/17 01:00 93 17 118/68 (85) 94 10/15/17 00:45 94 14 114/66 (82) 96 10/15/17 00:30 95 18 117/67 (84) 94 10/15/17 00:15 92 18 117/68 (84) 94 10/15/17 00:00 92 10/15/17 00:00 96 30 108/60 (76) 91 10/15/17 00:00 98.4 96 30 108/60 (76) 91 10/14/17 23:00 106 10/14/17 23:00 106 10/14/17 23:00 93 Nasal Cannula 2.00 10/14/17 23:00 98.2 106 34 143/65 (91) 93 10/14/17 22:55 95 Nasal Cannula 2.00 10/14/17 22:30 10/14/17 22:18 102 19 122/64 (83) 98 Nasal Cannula 2.00 10/14/17 21:28 97 18 127/66 (86) 97 Nasal Cannula 2.00 10/14/17 20:24 94 Nasal Cannula 2.00 10/14/17 20:23 88 Room Air 10/14/17 19:51 98 17 111/58 (75) 99 Room Air 10/14/17 19:50 99 Room Air 10/14/17 19:29 98.5 109 19 . Exam CONSTITUTIONAL/GENERAL: This is a pale, frail appearing female with a distended abdomen. She is sedated. She moves to voice/exam, but does not awaken. TUBES/LINES/DRAINS: Soft wrist restraints; warner catheter; non-rebreather mask ; peripheral IV SKIN: Slight jaundice. Erythematous rash on lower extremities. Dime sized ulcer on left calf. Track christina. Skin temperature appropriate. Not diaphoretic. HEAD: Atraumatic. Normocephalic. EYES: Pupils equal and round and reactive. Extraocular motions intact. Mild scleral icterus. No injection or drainage. Fundi not examined. ENT: Unable to assess hearing. . Nose without bleeding or purulent drainage. Throat without visible erythema, exudates, masses, or lesions. NECK: Trachea midline. No palpable thyroid enlargement or nodularity. CARDIOVASCULAR: Regular rate and rhythm without . Systolic murmur present. No JVD. Peripheral pulses symmetric. RESPIRATORY/CHEST: Symmetric, unlabored respirations. Breath sounds equal bilaterally but diminished. . No wheezes. Faint ronchi. GASTROINTESTINAL: Distended and firm. . Cannot palpate adequately for organomegaly or masses due to distension. Tenderness present. Bowel sounds hypoactive. GENITOURINARY: Without palpable bladder distension. Warner catheter in place. MUSCULOSKELETAL: Extremities without clubbing, Some mottling of feet. 1+ edema to lower extermities. LYMPHATICS: No palpable cervical or supraclavicular adenopathy. NEUROLOGICAL: Sedated. Stirs to voice/exam, but does not awaken. Can move all 4 extremites. Unable to follow commands. PSYCHIATRIC: Unable to asses due to level of responsiveness. . Diagnostic Tests Laboratory Laboratory Tests Test 10/14/17 19:46 10/14/17 19:47 10/14/17 21:45 10/14/17 22:50 White Blood Count 10.5 TH/MM3 (4.0-11.0) Red Blood Count 2.64 MIL/MM3 (4.00-5.30) Hemoglobin 7.6 GM/DL (11.6-15.3) Hematocrit 23.4 % (35.0-46.0) Mean Corpuscular Volume 88.7 FL (80.0-100.0) Mean Corpuscular Hemoglobin 28.8 PG (27.0-34.0) Mean Corpuscular Hemoglobin Concent 32.5 % (32.0-36.0) Red Cell Distribution Width 19.7 % (11.6-17.2) Platelet Count 109 TH/MM3 (150-450) Mean Platelet Volume 9.6 FL (7.0-11.0) Neutrophils (%) (Auto) 84.6 % (16.0-70.0) Lymphocytes (%) (Auto) 7.0 % (9.0-44.0) Monocytes (%) (Auto) 8.2 % (0.0-8.0) Eosinophils (%) (Auto) 0.0 % (0.0-4.0) Basophils (%) (Auto) 0.2 % (0.0-2.0) Neutrophils # (Auto) 8.9 TH/MM3 (1.8-7.7) Lymphocytes # (Auto) 0.7 TH/MM3 (1.0-4.8) Monocytes # (Auto) 0.9 TH/MM3 (0-0.9) Eosinophils # (Auto) 0.0 TH/MM3 (0-0.4) Basophils # (Auto) 0.0 TH/MM3 (0-0.2) CBC Comment DIFF FINAL Differential Comment Prothrombin Time 24.2 SEC (9.8-11.6) Prothromb Time International Ratio 2.4 RATIO Activated Partial Thromboplast Time 39.7 SEC (24.3-30.1) Blood Urea Nitrogen 66 MG/DL (7-18) Creatinine 2.02 MG/DL (0.50-1.00) Random Glucose 35 MG/DL (74-106) Total Protein 8.6 GM/DL (6.4-8.2) Albumin 4.5 GM/DL (3.4-5.0) Calcium Level 8.8 MG/DL (8.5-10.1) Magnesium Level 2.1 MG/DL (1.5-2.5) Alkaline Phosphatase 906 U/L (45-117) Aspartate Amino Transf (AST/SGOT) 4267 U/L (15-37) Alanine Aminotransferase (ALT/SGPT) 1214 U/L (10-53) Total Bilirubin 2.3 MG/DL (0.2-1.0) Sodium Level 135 MEQ/L (136-145) Potassium Level 5.6 MEQ/L (3.5-5.1) Chloride Level 105 MEQ/L (98-107) Carbon Dioxide Level 8.5 MEQ/L (21.0-32.0) Anion Gap 22 MEQ/L (5-15) Estimat Glomerular Filtration Rate 28 ML/MIN (>89) Lactic Acid Level 9.2 mmol/L (0.4-2.0) 5.6 mmol/L (0.4-2.0) B-Type Natriuretic Peptide 625 PG/ML (0-100) Lipase 968 U/L (73-393) Urine Color Komal (YELLW/STRAW) Urine Turbidity CLOUDY (CLEAR) Urine pH 5.0 (5.0-8.5) Urine Specific Sherrill 1.024 (1.002-1.035) Urine Protein >=500 mg/dL (NEG-TRACE) Urine Glucose (UA) 50 mg/dL (NEG) Urine Ketones TRACE mg/dL (NEG) Urine Occult Blood LARGE (NEG) Urine Nitrite NEG (NEG) Urine Bilirubin NEG (NEG) Urine Urobilinogen LESS THAN 2 mg/dL (LESS Urine Leukocyte Esterase NEG (NEG) Urine RBC 73 /hpf (0-3) Urine WBC 35 /hpf (0-5) Urine Squamous Epithelial Cells 1 /hpf (0-5) Urine Amorphous Sediment FEW Urine Bacteria RARE /hpf (NONE) Microscopic Urinalysis Comment CATH-CULTURE IND Blood Gas Puncture Site RT RADIAL Blood Gas Patient Temperature 98.6 Blood Gas HCO3 11 mmol/L (22-26) Blood Gas Base Excess -14.1 mmol/L (-2-2) Blood Gas Oxygen Saturation 88 % (90-100) Arterial Blood pH 7.31 (7.380-7.420) Arterial Blood Partial Pressure CO2 23 mmHg (38-42) Arterial Blood Partial Pressure O2 74 mmHg (61-120) Arterial Blood Oxygen Content 9.0 Vol % (12.0-20.0) Arterial Blood Carboxyhemoglobin 1.6 % (0-4) Arterial Blood Methemoglobin 1.6 % (0-2) Blood Gas Hemoglobin 7.2 G/DL (12.0-16.0) Oxygen Delivery Device NASAL CANNULA Blood Gas Liter Flow 2 L/M Nasal Screen MRSA (PCR) MRSA NOT DETECTED (NOT Test 10/15/17 06:10 10/15/17 09:50 10/15/17 10:20 White Blood Count 12.8 TH/MM3 (4.0-11.0) Red Blood Count 2.56 MIL/MM3 (4.00-5.30) Hemoglobin 7.4 GM/DL (11.6-15.3) Hematocrit 22.4 % (35.0-46.0) Mean Corpuscular Volume 87.3 FL (80.0-100.0) Mean Corpuscular Hemoglobin 28.8 PG (27.0-34.0) Mean Corpuscular Hemoglobin Concent 32.9 % (32.0-36.0) Red Cell Distribution Width 20.5 % (11.6-17.2) Platelet Count 94 TH/MM3 (150-450) Mean Platelet Volume 9.6 FL (7.0-11.0) Neutrophils (%) (Auto) 86.2 % (16.0-70.0) Lymphocytes (%) (Auto) 6.7 % (9.0-44.0) Monocytes (%) (Auto) 6.8 % (0.0-8.0) Eosinophils (%) (Auto) 0.1 % (0.0-4.0) Basophils (%) (Auto) 0.2 % (0.0-2.0) Neutrophils # (Auto) 11.0 TH/MM3 (1.8-7.7) Lymphocytes # (Auto) 0.9 TH/MM3 (1.0-4.8) Monocytes # (Auto) 0.9 TH/MM3 (0-0.9) Eosinophils # (Auto) 0.0 TH/MM3 (0-0.4) Basophils # (Auto) 0.0 TH/MM3 (0-0.2) CBC Comment AUTO DIFF Differential Comment AUTO DIFF CONFIRMED Platelet Estimate LOW (NORMAL) Platelet Morphology Comment NORMAL (NORMAL) Ovalocytes 1+ (NORMAL) Prothrombin Time 33.5 SEC (9.8-11.6) Prothromb Time International Ratio 3.3 RATIO Fibrinogen 92 mg/dL (227-377) Blood Urea Nitrogen 69 MG/DL (7-18) Creatinine 2.33 MG/DL (0.50-1.00) Random Glucose 81 MG/DL (74-106) Total Protein 7.6 GM/DL (6.4-8.2) Albumin 3.9 GM/DL (3.4-5.0) Calcium Level 7.5 MG/DL (8.5-10.1) Phosphorus Level 6.8 MG/DL (2.5-4.9) Magnesium Level 1.9 MG/DL (1.5-2.5) Alkaline Phosphatase 733 U/L (45-117) Aspartate Amino Transf (AST/SGOT) 79183 U/L (15-37) Alanine Aminotransferase (ALT/SGPT) 2757 U/L (10-53) Total Bilirubin 2.3 MG/DL (0.2-1.0) Sodium Level 139 MEQ/L (136-145) Potassium Level 5.1 MEQ/L (3.5-5.1) Chloride Level 105 MEQ/L (98-107) Carbon Dioxide Level 12.0 MEQ/L (21.0-32.0) Anion Gap 22 MEQ/L (5-15) Estimat Glomerular Filtration Rate 24 ML/MIN (>89) Lactic Acid Level 10.2 mmol/L (0.4-2.0) Urine Opiates Screen POS (NEG) Urine Barbiturates Screen NEG (NEG) Urine Amphetamines Screen NEG (NEG) Urine Benzodiazepines Screen NEG (NEG) Urine Cocaine Screen POS (NEG) Urine Cannabinoids Screen NEG (NEG) Random Vancomycin Level 15.1 COMMENT . Result Diagram: 10/15/17 0610 10/15/17 06 Microbiology Microbiology Date/Time Source Procedure Growth Status 10/14/17 19:47 Blood Peripheral Aerobic Blood Culture - Preliminary NO GROWTH IN 1 DAY Resulted 10/14/17 19:47 Blood Peripheral Anaerobic Blood Culture - Preliminary NO GROWTH IN 1 DAY Resulted 10/14/17 19:37 Blood Peripheral Aerobic Blood Culture - Preliminary NO GROWTH IN 1 DAY Resulted 10/14/17 19:37 Blood Peripheral Anaerobic Blood Culture - Preliminary NO GROWTH IN 1 DAY Resulted 10/14/17 19:47 Urine Catheterized Urine Urine Culture Pending Received . Imaging Last Impressions Chest X-Ray 10/14/171933 Signed Impressions: CONCLUSION: Bilateral airspace disease improved from October 03. Small effusions. Abdomen/Pelvis CT 10/14/171933 Signed Impressions: CONCLUSION: 1. There is mild mural thickening of the left colon most characteristic of a m ild colitis. 2. Improvement in pleural effusions and basilar lung consolidation since September 30. 3. Persistent ascites and diffuse anasarca. Warner catheter present in bladder. Chest CT 10/14/17 0000 Signed Impressions: CONCLUSION: 1. Improved pleural effusions with decrease in size on the right and near comp lete resolution of the left effusion. 2. Overall basilar lung consolidation has improved. 3. There are several new areas of small cavitation in the upper lungs and a mi xed pattern with some areas of consolidation improving and some of which are ne w. 4. No pericardial effusion. . Patient/Family Conference Present at Family Conference: Mother (the health care proxy) . Family Conference Time (mins): 50 Family Conference Location: Consult Room Issues Discussed: * Palliative care role, purpose, approach * Additional medical, psychosocial, and spiritual history * Patients general health, functional status, and cognitive changes in the months leading up to the current hospitalization * Family understanding of the current medical problems * Family understanding of prognosis * Patients goals of care as best understood from conversations and/or values * Current medical treatment options and benefits/burdens of those options * Likely scenarios comparing ongoing aggressive care with a transition to comfort measures only * Questions answered to the best of my ability * Palliative care contact information provided . Assessment and Plan Disease Oriented Problem List: (1) Endocarditis Comment: Vegetations seen on both aortic and tricuspid valves. . (2) DIC (disseminated intravascular coagulation) (3) Acute liver failure (4) Acute renal failure (5) Ascites (6) Anemia (7) Thrombocytopenia (8) Colitis (9) Metabolic acidosis (10) Polysubstance abuse Symptom Scale: (1) Pain 0-10 Scale: Unable to quantify Comment: Has been having abdominal pain and generalized pain. Abdominal pain likely due to ascites and possibly colitis which was diagnosed on imaging showing thickened bowel wall. Patient may have low pain threshholds due to opiate use. Also, anticipate she will need larger doses than expected of opiate analgesics because of her history of abuse and down-regulating those receptors. . (2) Agitation 0-10 Scale: Unable to quantify Comment: May be a multi-factorial delirium. Also, may be an element of drug withdrawal. . (3) Dyspnea 0-10 Scale: Unable to quantify Comment: Patient is oil heaterman smoker now with pulmonary nodules and pleural effusion. (4) Encephalopathy 0-10 Scale: Unable to quantify Comment: Multi-factorial . Encephalopathy probably due to combination of hepatic, renal, and respiratory issues. . Pertinent Non-Medical Issues Psychosocial: Spiritual: Legal: Ethical issues impacting care: Important Contacts * Joann Syed (mother and health care proxy) -- [phone] * Primo Stiles (father -- has voluntarily relinquished decision making per conversation of 10/15/17) [phone] * Crescencio Vail (son - has voluntarily relinquished decision making per conversation of 06/18/18) [phone] . Prognosis Patient is now in multi-organ failure with rapidly worsening LFTs, increasing 02 needs, declining renal function, and rapidly falling Hg (DIC?). She has vegetations on two valves. She has left the hospital against medical advice on three prior admissions and has not been able to complete a course of recommended antibiotics. Even with aggressive care at this point, chances of survival are slim. Should she survive the acute phase, patient has told her mother she is tired of fighting, does not want to return to the hospital , and just wants "peace." . Code Status: No Code Plan == Code Status -- NO CODE == Decision making -- patient is currently incapacitated to make her own health care decisions. There is no reasonable probability at this point that she will regain capacity to do so. The patient is unmarried. She had three children, but only one of those children (her son Crescencio) is an adult (age 18). Crescencio has declined to be the proxy. Decision making would then fall to the patient's biological parents. The patient's father (Primo Stiles) has declined to participate. That leaves legal proxy decision making to the patient 's mother -- Joann Syed -- who lives locally. == Goals of medical treatment. She has left the hospital against medical advice on the three prior hospitalizations and did not think she would be able to complete a course of antibiotics. The patient asked her mother hours before admission to allow her to remain at home under hospice care. The patient did not want to return to the hospital this time. Per the patient's mother, the patient knew she was dying and has become tired of fighting. She asked her mother to say goodbye to her kids and to "tell them about me." Mother feels strongly that continuing aggressive care would only prolong what has already become an uncomfortable dying process. Mother recognizes that the patient is now far more ill than she had been on prior hospitalizations. Mother has asked for patient to be "NO CODE" and to transition to "comfort measures only. " She has requested a trade embalmer. The mother's under hospice care and she has requested hospice care of[facility]. == Symptoms * Pain: As above. Most recently c/o abdominal and generalized pain levels 8 - 10. * Dyspnea: As above. * Agitation: As above. * Encephalopathy: As above. == Case discussed by phone with Dr. Salas who feels the patient is terminal given the severity of her multi-organ failure. He agrees to support the mother' s decisions for comfort care. == Hospice consult placed. == I spoke personally with Information Technology Coordinatorradhames Martinez who will contact a Insurance Policy Clerk and will help to support patient's mother. == If patient is stable for transport, will try and move to a hospice care center bed. . Time Spent Total Floor Time (mins): 90 (Total floor time included chart review; patient exam; collaboration with bedside nurse; above referenced phone conversation with mother; telephone conversations with adult son and biological father to see if they chose to be decision makers; telephone conversation with coin wrapping machine operator ; telephone conversation with hospice admission nurse.) Face to Face Time (mins): 12 >50% Counseling/Coord of Care: Yes Thank you for the opportunity to participate in the care of Ms. Stiles. . Attestation To help prompt me to consider important information that might be impacting today's encounter and assessment, information from prior notes written by myself or my colleagues may have been "brought forward" into today's note. My signature on this note, however, is an attestation that I personally performed the exam, history, and/or decision-making noted today, and, unless otherwise indicated, the interactions with patient, family, and staff as well as the review of records all occurred today. I also attest that the listed assessment and stated plan reflect my best clinical judgment today based on the combination of historical information, prior notes, and today's exam/ interactions. When time spent is documented, it refers only to time spent today by the signer, or if indicated, combined time spent today by collaborating physician/nurse practitioner. . oGran Hernandez MD Oct 15, 2017 12:09
[2017-10-15 13:08] LABS: AUTOMATED NEUTROPHIL # 7.4 TH/MM3 (1.8-7.7); BASOPHIL % 0.4 % (0.0-2.0); EOSINOPHIL % 0.1 % (0.0-4.0); LYMPH % 11.1 % (9.0-44.0); MEAN CELL VOLUME 90.7 FL (80.0-100.0); MEAN CORPUSCULAR HEMOGLOBIN 28.9 PG (27.0-34.0); MEAN CORPUSCULAR HGB CONC 31.9 % (32.0-36.0); MEAN PLATELET VOLUME 10.5 FL (7.0-11.0); MONO % 8.8 % (0.0-8.0); MONOCYTE # 0.8 TH/MM3 (0-0.9); NEUT % 79.6 % (16.0-70.0); PLATELET COUNT 63 TH/MM3 (150-450); RED BLOOD COUNT 2.08 MIL/MM3 (4.00-5.30); RED CELL DISTRIBUTION WIDTH 20.8 % (11.6-17.2); WHITE BLOOD COUNT 9.3 TH/MM3 (4.0-11.0)
[2017-10-15 13:26] LABS: HEMATOCRIT 18.8 % (35.0-46.0)
[2017-10-15] MEDS ORDERED: metroNIDAZOLE 500 MG TAB PO SCH (14:00)
[2017-10-15 14:12] LABS: ALBUMIN 3.8 GM/DL (3.4-5.0); ALKALINE PHOSPHATASE 626 U/L (45-117); ALT (GPT) 3074 U/L (10-53); AST (GOT) 12491 U/L (15-37); BICARBONATE 9.6 MEQ/L (21.0-32.0); BLOOD UREA NITROGEN 71 MG/DL (7-18); CALCIUM 7.6 MG/DL (8.5-10.1); CHLORIDE 103 MEQ/L (98-107); CREATININE 2.52 MG/DL (0.50-1.00); GLOMERULAR FILTRATION RATE 22 ML/MIN (>89); GLUCOSE,RANDOM 68 MG/DL (74-106); SODIUM (NA) 138 MEQ/L (136-145); TOTAL BILIRUBIN ADULT 2.4 MG/DL (0.2-1.0); TOTAL PROTEIN 7.5 GM/DL (6.4-8.2)
[2017-10-15 14:28] LABS: ACANTHOCYTES 1+ (NORMAL); OVALOCYTES 1+ (NORMAL)
--- NOTE | 2017-10-15 23:06 | EKG ---
Date Performed: 10/14/2017 Time Performed: 19:35:46 PTAGE: 37 years EKG: SINUS TACHYCARDIA ABNORMAL RHYTHM ECG PREVIOUS TRACING : 09/25/2017 12.19 DOCTOR: Vahid Allen Interpretating Date/Time 10/15/2017 22:57:33
== END 2017-10-15 18:30 | disposition hospice, inpatient (51) | DRG 871 ==
LOC: NEPC 19:25 → NEDA 21:50 → HIME 22:40
PROVIDERS: ADMIT Internal Medicine Critical Care Medicine; ATTEND Internal Medicine Critical Care Medicine
DX: A41.01 Sepsis due to Methicillin susceptible Staphylococcus aureus (principal); I33.0 Acute and subacute infective endocarditis; D65 Disseminated intravascular coagulation [defibrination syndrome]; I26.90 Septic pulmonary embolism without acute cor pulmonale; K72.00 Acute and subacute hepatic failure without coma; K76.7 Hepatorenal syndrome; G93.40 Encephalopathy, unspecified; R18.8 Other ascites; R65.21 Severe sepsis with septic shock; E87.2 Acidosis; D61.818 Other pancytopenia; N39.0 Urinary tract infection, site not specified; N17.9 Acute kidney failure, unspecified; B19.20 Unspecified viral hepatitis C without hepatic coma; E16.2 Hypoglycemia, unspecified; E86.0 Dehydration; E87.5 Hyperkalemia; F12.90 Cannabis use, unspecified, uncomplicated; F19.10 Other psychoactive substance abuse, uncomplicated; F17.210 Nicotine dependence, cigarettes, uncomplicated; F31.9 Bipolar disorder, unspecified; G40.909 Epilepsy, unspecified, not intractable, without status epilepticus; I08.2 Rheumatic disorders of both aortic and tricuspid valves; I50.9 Heart failure, unspecified; K52.9 Noninfective gastroenteritis and colitis, unspecified; N18.9 Chronic kidney disease, unspecified; Z51.5 Encounter for palliative care; Z66 Do not resuscitate; F14.10 Cocaine abuse, uncomplicated; R00.0 Tachycardia, unspecified; R60.1 Generalized edema; R10.84 Generalized abdominal pain; R45.1 Restlessness and agitation; R06.00 Dyspnea, unspecified; Z86.711 Personal history of pulmonary embolism; Z59.0 Homelessness; Z91.19 Patient's noncompliance with other medical treatment and regimen
CPT/HCPCS: 36430; 36600; 71045; 71250; 74176; 80053; 80074; 80202; 80307; 81001; 82805; 82948; 83605; 83690; 83735; 83880; 84100; 85025; 85384; 85610; 85730; 86850; 86900; 86901; 86927; 87040; 87086; 87205; 87641; 93005; 94664; C9113; J1630; J2060; J2270; J2543; J3370; J3430; J7030; J7050; J7070; P9017